=== PATIENT | male | born 1960 | race Two or more races ===

== ENCOUNTER 2018-06-05 13:28 | Inpatient (IN) | payer OTHER ==
[~2018-06-05] VITALS: Ht 175.3 cm; Wt 54.8 kg
[2018-06-05] MEDS ORDERED: SODIUM CHLORIDE 0.9% 1,000 ML IVB ONE ×2 (13:50→14:51)
[2018-06-05] MEDS ORDERED: SODIUM CHLORIDE 0.9% 1,000 ML IV ONE (14:00)
[2018-06-05 14:03] LABS: Hematocrit 52.3 % (41.0-53.0); Hemoglobin 16.8 g/dL (13.5-17.5); Mean Corpuscular Hemoglobin 30.2 pg (28.0-32.0); Mean Corpuscular Hgb Conc. 32.2 g/dL (32.0-36.0); Platelet Count (auto) 365 10^3/uL (140-450); Red Blood Cells 5.57 10^6/uL (4.5-5.90); Red Cell Distribution Width 13.2 % (11.8-14.3); White Blood Cell 25.1 10^3/uL (4.4-10.8)
[2018-06-05 14:10] LABS: Basophils % (manual) 0 (0.0-2.0); Blast Cells 0; Eosinophils % (manual) 0 (0-7); Metamyelocytes % 0; Myelocytes % 0; Promyelocytes % 0; Reactive Lymphocytes 0
[2018-06-05 14:17] LABS: INR 1.04 (0.9-1.15); Partial Thromboplastin Time 33.8 sec (23.78-33.04); Prothrombin Time 11.1 sec (9.27-12.13)
[2018-06-05 14:23] LABS: Alanine Aminotransferase 23 U/L (16-61); Albumin 3.9 g/dL (3.4-5.0); Amylase 379 U/L (25-115); Anion Gap 29 (5-15); Blood Urea Nitrogen 40 mg/dL (7-18); Calcium 9.5 mg/dL (8.5-10.1); Chloride 97 mmol/L (98-107); Magnesium 2.5 mg/dL (1.6-2.6); Potassium 4.5 mmol/L (3.5-5.1); Sodium 132 mmol/L (136-145)
[2018-06-05 14:32] LABS: Alkaline Phosphatase 92 U/L (45-117); Aspartate Aminotransferase 9 U/L (15-37); BUN/Creatinine Ratio 26.8; Bilirubin, Total 0.5 mg/dL (0.2-1.0); GFR African American 63 mL/min; GFR Non-African American 52 mL/min; Lipase 2333 U/L (73-393)
[2018-06-05 14:38] LABS: Band Neutrophils % (manual) 15; Lymphocytes % (manual) 4 (10.0-50.0); Monocytes % (manual) 7 (0-12)
[2018-06-05 14:47] LABS: Carbon Dioxide 6 mmol/L (21-32); Glucose 644 mg/dL (74-106)
[2018-06-05] MEDS ORDERED: InsuLIN R (HUMAN) 100 UNITS in SODIUM CHL 0.9% 99 ML IV SCH ×4 (14:51)
[2018-06-05] MEDS ORDERED: SODIUM CHLORIDE 0.9% 1,000 ML IV SCH ×2 (14:51→18:51)
[2018-06-05] MEDS ORDERED: DEXTROSE (50%) 50ML SYRG IV PRN (15:00)
[2018-06-05] MEDS ORDERED: MORPHINE SULF INJ 2 MG/ML SYRINGE 1ML IV ONE (15:00)
[2018-06-05] MEDS ORDERED: SODIUM CHLORIDE 0.9% 2,000 ML IV ONE (15:00)
[2018-06-05] MEDS ORDERED: ONDANSETRON HCL 4 MG/2 ML VIAL IV ONE (15:00)
[2018-06-05] MEDS ORDERED: SODIUM BICARBONATE 8.4 % INJ 50ML VIAL IV ONE ×2 (15:00→15:30)
[2018-06-05] MEDS ORDERED: SODIUM BICARBONATE 8.4% INJ 50ML SYRINGE ONE (15:16)
[2018-06-05 15:36] LABS: Magnesium 2.6 mg/dL (1.6-2.6); Phosphorus 5.8 mg/dL (2.5-4.90)
[2018-06-05] MEDS: ACCU-CHEK COMFORT CURVE STRIP VI SCH ×6 (15:49→22:29)
[2018-06-05 15:53] LABS: Lactic Acid w/Reflex 2.3 mmol/L (0.4-2.0)
[2018-06-05] MEDS ORDERED: InsuLIN REG 1unit/0.01ml Soln (100units/ml) ONE (16:08)
[2018-06-05 16:15] LABS: Alcohol, Urine < 3.0 mg/dL (0-5); Amphetamine Screen, Urine NEGATIVE (NEGATIVE); Barbiturate Scree,Urine NEGATIVE (NEGATIVE); Benzodiazephine Screen, Urine NEGATIVE (NEGATIVE); Cannabinoid Screen, Urine POSITIVE (NEGATIVE); Cocaine Screen, Urine NEGATIVE (NEGATIVE); Opiate Scree,Urine NEGATIVE (NEGATIVE); Phencyclidine Screen, Urine NEGATIVE (NEGATIVE)
[2018-06-05] MEDS ORDERED: MORPHINE SULF INJ 2 MG/ML SYRINGE 1ML IV PRN ×2 (16:15)
[2018-06-05] MEDS ORDERED: InsuLIN REG 1unit/0.01ml Soln (100units/ml) IV ONE (16:15)
[2018-06-05] MEDS ORDERED: NITROGLYCERIN 0.4 MG SL TAB SL PRN (16:15)
[2018-06-05] MEDS ORDERED: ONDANSETRON HCL 4 MG/2 ML VIAL IV PRN (16:15)
[2018-06-05] MEDS ORDERED: hydrALAZINE HCL 20 MG/ML VL IV PRN (16:15)
[2018-06-05] MEDS ORDERED: SOD CHL 0.45% WITH 20MEQ KCL 1,000 ML IV SCH (16:15)
[2018-06-05 16:32] LABS: Urine Bacteria NONE SEEN /hpf (None Seen); Urine Blood 1+ /uL (Negative); Urine Hyaline Cast FEW /lpf (0 - 2); Urine Mucus FEW (None Seen); Urine WBC 1 /hpf (0 - 3)
[2018-06-05] MEDS: D5W/SOD CHL 0.45%/KCL 20MEQ 1,000 ML IV SCH (20:12)
[2018-06-05 21:27] LABS: BUN/Creatinine Ratio 30.9; Potassium 3.5 mmol/L (3.5-5.1)
[2018-06-05 21:32] LABS: Magnesium,Therapeutic 1.9 mg/dL (4.0-7.1); Phosphorus 1.5 mg/dL (2.5-4.90)
[2018-06-06] MEDS: ACCU-CHEK COMFORT CURVE STRIP VI SCH ×8 (00:05→22:15)
[2018-06-06 02:59] LABS: Basophils # (auto) 0.1 uL; Basophils % (auto) 0.5 % (0.0-2.0); Eosinophils # (auto) 0 uL; Hematocrit 39.4 % (41.0-53.0); Hemoglobin 13.4 g/dL (13.5-17.5); Lymphocytes # (auto) 1.3 uL; Mean Corpuscular Hemoglobin 30.7 pg (28.0-32.0); Mean Corpuscular Volume 90.5 fL (80.0-100.0); Monocytes # (auto) 1.5 uL; Monocytes % (auto) 7.1 % (0.0-12.0); Neutrophils # (auto) 18.4 uL; Neutrophils % (auto) 86.4 % (37.0-80.0); Platelet Count (auto) 263 10^3/uL (140-450); Red Blood Cells 4.35 10^6/uL (4.5-5.90); Red Cell Distribution Width 13.2 % (11.8-14.3); White Blood Cell 21.3 10^3/uL (4.4-10.8)
[2018-06-06 03:18] LABS: Calcium 8.5 mg/dL (8.5-10.1); Magnesium 1.9 mg/dL (1.6-2.6); Potassium 3.3 mmol/L (3.5-5.1)
[2018-06-06 03:22] LABS: BUN/Creatinine Ratio 25.6; Bilirubin, Total 0.3 mg/dL (0.2-1.0); Phosphorus 1.8 mg/dL (2.5-4.90); Total Protein 6.5 g/dL (6.4-8.2)
[2018-06-06] MEDS: D5W/SOD CHL 0.45%/KCL 20MEQ 1,000 ML IV SCH (04:00)
[2018-06-06] MEDS ORDERED: POTASSIUM CHL 20 Meq TABLET PO ONE (07:45)
[2018-06-06] MEDS ORDERED: DEXTROSE (50%) 50ML SYRG IV PRN (08:00)
[2018-06-06] MEDS ORDERED: INSULIN LANTUS (GLARGINE) 1 /0.01ml (100units/ml) SC SCH (08:30)
[2018-06-06] MEDS ORDERED: POTASSIUM CHL 10% (20 MEQ/15ML) 15ml ORAL SOLN PO ONE (08:30)
[2018-06-06] MEDS ORDERED: POTASSIUM PHOSPHATE 22 MEQ in SODIUM CHL 0.9% 100 ML IV ONE (08:30)
[2018-06-06] MEDS: LACTATED RINGER'S 1,000 ML IV SCH ×2 (09:14→18:18)
[2018-06-06] MEDS: InsuLIN REG 1unit/0.01ml Soln (100units/ml) SC SCH ×3 (11:34→22:16)
--- NOTE | 2018-06-06 13:15 | NUR ---
ADMIT: Telemetry admit from [facility] admitted to Telemetry unit after SBAR received. Patient oriented to IRVING KURTZ, primary RN, unit, room, bed, and unit policies regarding patient care and visiting hours. Patient now on continuous telemetry monitoring, tele box # 22 and telemetry reading on arrival to unit is ST 115. Patient on RA, weighed by bedscale and encouraged to call if they need something. All questions and concerns addressed, patient verbalized understanding. Note:
--- NOTE | 2018-06-06 13:27 | NUR ---
NAUSEA: Patient still c/o nausea and is throwing up. Zofran is order q6prn and patient still has two hours until he can receive next dose. Dr Cruz paged to see if frequency can be changed.
[2018-06-06] MEDS ORDERED: ONDANSETRON HCL 4 MG/2 ML VIAL IV PRN (13:45)
[2018-06-06] MEDS ORDERED: ONDANSETRON HCL 4 MG/2 ML VIAL ONE (13:46)
[2018-06-06 14:00] VITALS: BP 162/86
[2018-06-06 14:16] VITALS: BP 162/86
--- NOTE | 2018-06-06 14:55 | NUR ---
RECEIVED REPORT FROM IRVING / STEFANIE, PT RESTING COMFORTABLY, FAMILY AT BED SIDE, ECHOCARDIOGRAM IN PROGRESS AT THIS TIME, WILL CONTINUE TO MONITOR PT.
[2018-06-06 16:00] VITALS: BP 146/84
--- NOTE | 2018-06-06 17:35 | NUR ---
DR. ALVARENGA AT BED SIDE TO SEE PT, DOCTOR DISCUSSED PLAN OF CARE WITH PT.
[2018-06-06] MEDS ORDERED: PANTOPRAZOLE 40 MG/10 ML VIAL IV ONE (17:45)
--- NOTE | 2018-06-06 19:00 | NUR ---
Opening Shift Note Received shift report received Nirmala WATTS. Assumed care of patient, awake and alert. Respirations regular and unlabored. No S/S of distress/SOB or pain. Instructed on POC and to call for assist PRN, will continue to monitor for changes Q1hr and PRN. Bed in lowest position, side rails upx2, Call light within reach. Continuing to monitor.
[2018-06-06 20:00] VITALS: BP 134/78
[2018-06-06 21:57] VITALS: BP 133/71
[2018-06-06] MEDS: PANTOPRAZOLE 40 MG/10 ML VIAL IV SCH (22:15)
[2018-06-07] MEDS: LACTATED RINGER'S 1,000 ML IV SCH ×2 (01:46→14:30)
[2018-06-07 04:48] VITALS: BP 156/83
[2018-06-07] MEDS: InsuLIN REG 1unit/0.01ml Soln (100units/ml) SC SCH ×4 (06:37→21:44)
[2018-06-07] MEDS: ACCU-CHEK COMFORT CURVE STRIP VI SCH ×4 (06:37→21:45)
[2018-06-07] MEDS ORDERED: INSULIN LANTUS (GLARGINE) 1 /0.01ml (100units/ml) SC SCH (07:00)
--- NOTE | 2018-06-07 07:00 | NUR ---
Opening Shift Note Assumed care of patient, awake and alert. No S/S of distress/SOB or pain. Instructed on POC and to call for assist PRN, will continue to monitor for changes Q1hr and PRN.
[2018-06-07 07:19] LABS: Calcium 8.4 mg/dL (8.5-10.1); Potassium 3.1 mmol/L (3.5-5.1)
[2018-06-07 08:00] VITALS: BP 138/73
[2018-06-07 09:00] VITALS: BP 138/73
[2018-06-07] MEDS: PANTOPRAZOLE 40 MG/10 ML VIAL IV SCH ×2 (10:11→21:45)
[2018-06-07 13:00] VITALS: BP 130/68
[2018-06-07 16:30] VITALS: BP 133/67
[2018-06-07] MEDS ORDERED: TEMAZEPAM 15 MG CAP PO ONE ×2 (18:00→22:15)
[2018-06-07] MEDS: SOD CHL 0.45% WITH 20MEQ KCL 1,000 ML IV SCH (18:50)
[2018-06-07] MEDS ORDERED: TEMAZEPAM 15 MG CAP PO PRN (19:00)
--- NOTE | 2018-06-07 19:35 | NUR ---
Opening Shift Note Assumed care of patient, awake and alert oriented x4. Call light is within reach of the patient with bed in lowest locked position and call light is within reach of the patient. No S/S of distress/SOB or pain noted. Instructed on POC and to call for assist PRN.
[2018-06-07 21:00] VITALS: BP 151/80
[2018-06-08] MEDS: SOD CHL 0.45% WITH 20MEQ KCL 1,000 ML IV SCH ×3 (03:30→19:41)
[2018-06-08 05:00] VITALS: BP 128/72
[2018-06-08] MEDS: InsuLIN REG 1unit/0.01ml Soln (100units/ml) SC SCH ×4 (06:36→21:32)
[2018-06-08] MEDS: ACCU-CHEK COMFORT CURVE STRIP VI SCH ×4 (06:37→21:33)
[2018-06-08] MEDS ORDERED: INSULIN LANTUS (GLARGINE) 1 /0.01ml (100units/ml) SC SCH (07:00)
[2018-06-08 07:30] LABS: Calcium 8.5 mg/dL (8.5-10.1)
--- NOTE | 2018-06-08 07:30 | NUR ---
Call from [facility]. They want the patient to be brought down to pre-op by 0830.
[2018-06-08 07:32] LABS: BUN/Creatinine Ratio 21.6
[2018-06-08 07:38] LABS: Potassium 2.7 mmol/L (3.5-5.1)
--- NOTE | 2018-06-08 07:38 | NUR ---
Critical Lab value Potassium of 2.7 call center specialist hospitalist paged and Pre-op notified.
--- NOTE | 2018-06-08 07:54 | NUR ---
Orders obtained from [facility]. 40 Meq potassium po. pre-op said they wanted to wait until 2 hours after the dose given to check the potassium levels and see if its high enough for the anesthesiologist to go on with procedure. Will notify Pre-op when the lab value gets resulted.
[2018-06-08 08:00] VITALS: BP 138/76
[2018-06-08] MEDS ORDERED: POTASSIUM CHL 20 Meq TABLET PO ONE ×2 (08:00→08:45)
[2018-06-08] MEDS ORDERED: LIDOCAINE VISCOUS 2% 15ML UD ONE (08:31)
[2018-06-08] MEDS ORDERED: fentaNYL CITRATE 100 MCG/2 ML VL ONE (08:31)
[2018-06-08] MEDS ORDERED: diphenhdrAMINE HCL 50 MG/1 ML VL ONE ×2 (08:31→13:21)
[2018-06-08] MEDS ORDERED: SODIUM CHLORIDE LOCK 10 ML ONE (08:31)
[2018-06-08] MEDS ORDERED: MIDAZOLAM HCL 5 MG/ML-1ML VIAL ONE (08:31)
[2018-06-08] MEDS ORDERED: POTASSIUM CHLORIDE 40 MEQ, LIDOCAINE 1% (LOCAL ANESTH.) 4 ML in SODIUM CHL 0.9% 100 ML IV ONE (08:45)
[2018-06-08 08:58] LABS: Basophils # (auto) 0 uL; Basophils % (auto) 0.4 % (0.0-2.0); Eosinophils # (auto) 0 uL; Eosinophils % (auto) 0.3 % (0.0-7.0); Hematocrit 39.9 % (41.0-53.0); Hemoglobin 13.8 g/dL (13.5-17.5); Lymphocytes # (auto) 1.2 uL; Lymphocytes % (auto) 14.2 % (10.0-50.0); Mean Corpuscular Hemoglobin 30.5 pg (28.0-32.0); Mean Corpuscular Hgb Conc. 34.5 g/dL (32.0-36.0); Mean Corpuscular Volume 88.4 fL (80.0-100.0); Monocytes # (auto) 0.8 uL; Monocytes % (auto) 9.4 % (0.0-12.0); Neutrophils # (auto) 6.6 uL; Neutrophils % (auto) 75.7 % (37.0-80.0); Nucleated Red Blood Cells % 0.1 %; Platelet Count (auto) 237 10^3/uL (140-450); Red Blood Cells 4.51 10^6/uL (4.5-5.90); White Blood Cell 8.8 10^3/uL (4.4-10.8)
[2018-06-08 09:08] VITALS: BP 138/76
[2018-06-08] MEDS: LISINOPRIL 5 MG TAB PO SCH (09:21)
[2018-06-08] MEDS: PANTOPRAZOLE 40 MG/10 ML VIAL IV SCH (09:22)
--- NOTE | 2018-06-08 11:56 | NUR ---
NUTRITION CONSULT/ASSESSMENT NOTES Please refer to link notes of nutrition screen form filed under the intervention section of the plan of care for further details. Est. Needs based on IBW (73 kg): 1850 kcal to 2200 kcal (25-30 kcal/kgIBW), 73 gms to 88 gms pro (1.0-1.2 gms/kgIBW). Will continue to monitor pertinent labs and reassess nutrient need prn Thank you for this consult. Addendum: 06/08/18 at [address] Amended: Links added.
[2018-06-08 12:49] LABS: Alcohol, Urine < 3.0 mg/dL (0-5); Amphetamine Screen, Urine NEGATIVE (NEGATIVE); Barbiturate Scree,Urine NEGATIVE (NEGATIVE); Benzodiazephine Screen, Urine NEGATIVE (NEGATIVE); Cannabinoid Screen, Urine POSITIVE (NEGATIVE); Cocaine Screen, Urine NEGATIVE (NEGATIVE); Opiate Scree,Urine NEGATIVE (NEGATIVE); Phencyclidine Screen, Urine NEGATIVE (NEGATIVE)
[2018-06-08 13:00] VITALS: BP 130/73
[2018-06-08] MEDS ORDERED: LIDOCAINE 2% (LOCAL ANESTH.) PF 5ml SDV ONE (13:20)
[2018-06-08] MEDS ORDERED: PROPOFOL 10 MG/ML 20 ML IV ONE (13:20)
[2018-06-08] MEDS ORDERED: MIDAZOLAM HCL 1MG/1ML-2 ML VIAL ONE (13:21)
[2018-06-08] MEDS ORDERED: GLYCOPYRROLATE 0.2 MG/ML 1ML VIAL ONE (13:21)
[2018-06-08 16:59] VITALS: BP 141/73
[2018-06-08] MEDS: INSULIN 70/30 1unit/0.01ml Susp (100units/ml) SC SCH (18:00)
--- NOTE | 2018-06-08 18:30 | NUR ---
PATIENT DOESN'T WANT TO DO THE TELE/PSYCH UNTIL HIS IS WITH HIM AT BEDSIDE. AT THIS TIME THE PATIENT IS ALONE BECAUSE HIS WENT HOME.
--- NOTE | 2018-06-08 19:30 | NUR ---
Opening Shift Note Assumed care of patient, awake and alert oriented x4. No S/S of distress/SOB or pain noted. Bed is in lowest locked position with bed rails up x2 and call light is within reach of the patient. Instructed on POC and to call for assist PRN. Patient was asked about tele psyche and patient expressed that he would like to do the tele psych consult when his is present in the day.
[2018-06-08 21:00] VITALS: BP 119/69
[2018-06-08] MEDS: PANTOPRAZOLE 40 MG TAB PO SCH (21:30)
[2018-06-08] MEDS: ATORVASTATIN 20 MG TAB PO SCH (21:30)
[2018-06-08] MEDS ORDERED: TEMAZEPAM 15 MG CAP PO PRN (22:00)
[2018-06-09 05:00] VITALS: BP 128/80
[2018-06-09] MEDS: ACCU-CHEK COMFORT CURVE STRIP VI SCH ×4 (06:18→22:24)
[2018-06-09] MEDS: InsuLIN REG 1unit/0.01ml Soln (100units/ml) SC SCH ×4 (06:18→22:00)
[2018-06-09] MEDS: SOD CHL 0.45% WITH 20MEQ KCL 1,000 ML IV SCH ×2 (06:21→20:00)
[2018-06-09 06:50] LABS: Calcium 8.6 mg/dL (8.5-10.1); Potassium 3.1 mmol/L (3.5-5.1)
--- NOTE | 2018-06-09 07:15 | NUR ---
Closing note: Patient is asleep resting in bed with breaths even and unlabored. No S/S of distress SOB or pain noted. Bed is in lowest locked position with bed rails up x2 and call light is within reach of the patient. Care endorsed to day shift nurse.
[2018-06-09] MEDS: INSULIN 70/30 1unit/0.01ml Susp (100units/ml) SC SCH ×2 (08:00→18:04)
[2018-06-09] MEDS: PANTOPRAZOLE 40 MG TAB PO SCH ×2 (08:23→22:23)
[2018-06-09] MEDS: LISINOPRIL 5 MG TAB PO SCH (08:23)
[2018-06-09 09:00] VITALS: BP 134/84
--- NOTE | 2018-06-09 10:19 | NUR ---
Tele-psych machine placed in room. Placed call to [phone] to initiate tele-psych consult. Waiting return call.
--- NOTE | 2018-06-09 10:52 | NUR ---
Received call from Dr. Malone for tele-psych consult. He was updated on patient's information. Dr. Malone states he will speak with patient.
--- NOTE | 2018-06-09 11:15 | NUR ---
Tele-psych consult completed. Waiting for report.
--- NOTE | 2018-06-09 11:30 | NUR ---
Dr. Sequeira in to see patient as hospitalist.
[2018-06-09] MEDS ORDERED: POTASSIUM CHL 20 Meq TABLET PO ONE (11:45)
[2018-06-09] MEDS ORDERED: POTASSIUM CHLORIDE 40 MEQ, LIDOCAINE 1% (LOCAL ANESTH.) 4 ML in SODIUM CHL 0.9% 100 ML IV ONE (11:45)
--- NOTE | 2018-06-09 11:49 | NUR ---
Tele/psych report given to Dr. Sequeira. Orders received to start Cymbalta per recommendation of Dr. Malone.
[2018-06-09] MEDS ORDERED: DULoxetine HCL 30 MG CAP PO ONE (12:00)
--- NOTE | 2018-06-09 12:15 | NUR ---
Received a call from scout Rodriguez regarding clarification of an order for Duloxetine PO. Duloxetine dose available in pharmacy is 30mg/capsule. The order put in was Duloxetine 20mg. Informed the hospitalist Dr. Sequeira about this. Orders received to change Duloxetine PO to 30mg. Called pharmacy again and was able to inform scout Wilson about the order change.
[2018-06-09 13:00] VITALS: BP 134/74
[2018-06-09 17:00] VITALS: BP 158/99
--- NOTE | 2018-06-09 17:19 | NUR ---
IV removal IV left forearm and right forearm leaking, tender. Both IVs DC'd with sterile technique, catheters fully intact. Pressure dressing applied to sites. Patient tolerated procedure well. NOTE:
--- NOTE | 2018-06-09 17:20 | NUR ---
IV insertion IV access obtained, via clean sterile technique by inserting 20 gauge catheter at left forearm after 2 attempts. IV secured properly. No trauma to site. Patient tolerated procedure well.
--- NOTE | 2018-06-09 20:57 | NUR ---
Opening Shift Note Assumed care of patient from day shift RN Tatiana. Patient is awake and alert/oriented x4. No S/S of distress/SOB or pain noted at this time. Bed is in lowest locked position with bed rails up x2 and call light is within reach of the patient. Instructed on POC and to call for assist PRN
[2018-06-09 21:39] VITALS: BP 137/73
[2018-06-09] MEDS: ATORVASTATIN 20 MG TAB PO SCH (22:23)
[2018-06-10 05:13] VITALS: BP 145/79
[2018-06-10] MEDS: SOD CHL 0.45% WITH 20MEQ KCL 1,000 ML IV SCH (06:15)
[2018-06-10] MEDS: ACCU-CHEK COMFORT CURVE STRIP VI SCH ×2 (06:16→11:29)
[2018-06-10] MEDS: InsuLIN REG 1unit/0.01ml Soln (100units/ml) SC SCH ×2 (06:16→11:29)
[2018-06-10 06:20] LABS: Potassium 3.6 mmol/L (3.5-5.1)
[2018-06-10 06:27] LABS: BUN/Creatinine Ratio 19.4; Calcium 8.9 mg/dL (8.5-10.1)
--- NOTE | 2018-06-10 07:03 | NUR ---
CLOSING NOTE PATIENT IS RESTING IN BED WITH EVEN AND UNLABORED RESPIRATIONS. PATIENT EASILY AROUSED BY NAME. NO S/S OF DISTRESS AT THIS TIME. BED IS IN LOWEST POSITION, LOCKED, AND CALL LIGHT IS IN REACH. CARE TRANSFERRED TO DAY SHIFT RN.
[2018-06-10] MEDS: INSULIN 70/30 1unit/0.01ml Susp (100units/ml) SC SCH (08:14)
[2018-06-10 09:00] VITALS: BP 140/80
[2018-06-10] MEDS: LISINOPRIL 5 MG TAB PO SCH (09:50)
[2018-06-10] MEDS: PANTOPRAZOLE 40 MG TAB PO SCH (09:50)
[2018-06-10] MEDS ORDERED: DULoxetine HCL 30 MG CAP PO SCH (10:00)
[2018-06-10] MEDS ORDERED: POTASSIUM CHL 20 Meq TABLET PO ONE (10:30)
--- NOTE | 2018-06-10 10:30 | NUR ---
Dr. Sequeira in to see patient as hospitalist. Patient to be discharged today. Patient informed. Will continue to monitor.
--- NOTE | 2018-06-10 11:42 | NUR ---
Nutrition Follow-up Notes Wt.: 54.8 kg Pt was sleeping with no family by beside. per pt records pt with resolved DKA. pt was tele psych consult. pt with no distress noted per nursing. pt is currently on CCHO 60 gm/meal diet with fair PO of avg 60% x 5 per RN doc Est. Needs based on IBW (73 kg): 1850 kcal to 2200 kcal (25-30 kcal/kgIBW), 73 gms to 88 gms pro (1.0-1.2 gms/kgIBW). Will continue to monitor pertinent labs and reassess nutrient need prn Labs: GLU 141 H. rest lab wnl for today Skin: Atilio scale 20 low risk skin intact per orientation & mobility specialist. GI: Pt has no BM reported per orientation & mobility specialist. PES: Altered nutrition related lab values r/t current/chronic medical condition aeb hyperglycemia, hypokalemia, low Cr elev. HbA1c, LDL, Lipase, and mild hypoalbuminemia Partially resolved: Increased nutrient needs r/t chronic current medical condition aeb 73% IBW, BMI 16.9 kg/m2, cachectic, hx of wt loss, mild hypoalbuminemia, NPO. Will continue to monitor PO intake, skin status, pertinent labs and weight trend. F/u in 3-5 days. Rec.: 1.) Consider Glucerna Shakes 1 carton TID. 2.) If Albumin level continues trending down, consider Prostat 1 pkt BID. 3.) Consider close supervision with meals 4.) Refer to CDE/RD for further nutrition education and weight monitoring upon discharged. 5.) Continue current plan of care.
[2018-06-10 12:46] VITALS: BP 140/80
[2018-06-11 02:00] LABS: Hepatitis B Surface Antibody Negative
[2018-06-11 02:31] LABS: Hepatitis A Total Antibody Negative
[2018-06-11 06:38] LABS: Hepatitis B Core Total AB Negative; Hepatitis B Surface Antigen Negative (Negative)
[2018-06-11 06:39] LABS: Hepatitis C Antibody Negative (Negative)
== END 2018-06-10 13:25 | disposition home or self-care (01) | DRG 637 ==
LOC: ER 13:32 → OVERFLOW 16:17 → TELE-CENTR 06-06 13:04
PROVIDERS: ADMIT Nurse Practitioner Acute Care; ATTEND Internal Medicine
PROC: 0DB68ZX Excision of Stomach, Via Natural or Artificial Opening Endoscopic, Diagnostic (ICD-10-PCS; principal; 2018-06-08 13:31)
DX: E10.10 Type 1 diabetes mellitus with ketoacidosis without coma (principal); N17.0 Acute kidney failure with tubular necrosis; R65.10 Systemic inflammatory response syndrome (SIRS) of non-infectious origin without acute organ dysfunction; R10.9 Unspecified abdominal pain; K29.80 Duodenitis without bleeding; K29.70 Gastritis, unspecified, without bleeding; I10 Essential (primary) hypertension; E87.6 Hypokalemia; K20.9 Esophagitis, unspecified
CPT/HCPCS: 36415; 36600; 71045; 74176; 80048; 80053; 80061; 80307; 80320; 81001; 82010; 82043; 82150; 82805; 82962; 83036; 83605; 83690; 83735; 84100; 84132; 84439; 84443; 84484; 85007; 85025; 85027; 85610; 85730; 86704; 86706; 86708; 86803; 87040; 87340; 93005; 93306; 96361; 96374; 96375; 99291; A6257; C9113; G0378; J1815; J2001; J2250; J2405; J2704

== ENCOUNTER → 2018-07-03 | Outpatient (CLI) | payer OTHER ==
[2018-07-03 13:05] LABS: Potassium 4.2 mmol/L (3.5-5.1)
[2018-07-03 13:06] LABS: Albumin 3.6 g/dL (3.4-5.0); BUN/Creatinine Ratio 34.4; Calcium 8.7 mg/dL (8.5-10.1)
[2018-07-03 13:07] LABS: Bilirubin, Total 0.3 mg/dL (0.2-1.0); Total Protein 7.5 g/dL (6.4-8.2)
== END | disposition home or self-care (01) ==
LOC: LAB 11:10
PROVIDERS: ATTEND Internal Medicine
DX: I10 Essential (primary) hypertension (principal); E11.9 Type 2 diabetes mellitus without complications
CPT/HCPCS: 36415; 80053; 83036; 84439; 84443

== ENCOUNTER → 2018-07-06 | Outpatient (CLI) | payer OTHER | END | disposition home or self-care (01) | LOC: LAB 10:03 | PROVIDERS: ATTEND Internal Medicine | DX: I10 Essential (primary) hypertension (principal) | CPT/HCPCS: 82270 ==

== ENCOUNTER → 2018-07-17 | Outpatient (CLI) | payer OTHER | END | disposition home or self-care (01) | LOC: LAB 16:00 | PROVIDERS: ATTEND Internal Medicine | DX: E07.9 Disorder of thyroid, unspecified (principal) | CPT/HCPCS: 36415; 84439; 84443; 86800 ==

== ENCOUNTER → 2018-07-19 | Outpatient (CLI) | payer OTHER | END | disposition home or self-care (01) | LOC: XYW 10:30 | PROVIDERS: ATTEND Internal Medicine | DX: C83.34 Diffuse large B-cell lymphoma, lymph nodes of axilla and upper limb (principal); C83.31 Diffuse large B-cell lymphoma, lymph nodes of head, face, and neck; E07.9 Disorder of thyroid, unspecified; R59.1 Generalized enlarged lymph nodes; E03.9 Hypothyroidism, unspecified; E11.319 Type 2 diabetes mellitus with unspecified diabetic retinopathy without macular edema; F17.210 Nicotine dependence, cigarettes, uncomplicated; Z82.49 Family history of ischemic heart disease and other diseases of the circulatory system; Z79.4 Long term (current) use of insulin; Z83.3 Family history of diabetes mellitus | CPT/HCPCS: 10022; 38505; 60100; 76942 ==

== ENCOUNTER → 2018-07-19 | Outpatient (CLI) | payer OTHER ==
[2018-07-19 11:35] LABS: Calcium 9.3 mg/dL (8.5-10.1); Potassium 4.5 mmol/L (3.5-5.1)
[2018-07-19 11:37] LABS: BUN/Creatinine Ratio 38.8
== END | disposition home or self-care (01) ==
LOC: LAB 09:47
PROVIDERS: ATTEND Internal Medicine
DX: E11.9 Type 2 diabetes mellitus without complications (principal)
CPT/HCPCS: 36415; 80048

== ENCOUNTER → 2018-07-24 | Outpatient (CLI) | payer OTHER ==
[2018-07-24 16:04] LABS: Basophils # (auto) 0 uL; Basophils % (auto) 0.5 % (0.0-2.0); Eosinophils # (auto) 0.3 uL; Eosinophils % (auto) 3.2 % (0.0-7.0); Hematocrit 36.8 % (41.0-53.0); Hemoglobin 12.7 g/dL (13.5-17.5); Lymphocytes # (auto) 1.5 uL; Lymphocytes % (auto) 17.2 % (10.0-50.0); Mean Corpuscular Hemoglobin 30.6 pg (28.0-32.0); Mean Corpuscular Hgb Conc. 34.5 g/dL (32.0-36.0); Mean Corpuscular Volume 88.6 fL (80.0-100.0); Monocytes # (auto) 0.9 uL; Monocytes % (auto) 9.9 % (0.0-12.0); Neutrophils % (auto) 69.2 % (37.0-80.0); Platelet Count (auto) 308 10^3/uL (140-450); Red Blood Cells 4.16 10^6/uL (4.5-5.90); Red Cell Distribution Width 14.8 % (11.8-14.3); White Blood Cell 8.6 10^3/uL (4.4-10.8)
[2018-07-24 16:22] LABS: Albumin 3.5 g/dL (3.4-5.0); Calcium 9.2 mg/dL (8.5-10.1); Potassium 4.1 mmol/L (3.5-5.1)
[2018-07-24 16:26] LABS: BUN/Creatinine Ratio 36.2; Bilirubin, Total 0.2 mg/dL (0.2-1.0); Uric Acid 3.7 mg/dL (3.5-7.2)
[2018-07-25 07:06] LABS: Immunoglobulin G, Serum 1121 mg/dL (700-1600)
== END | disposition home or self-care (01) ==
LOC: LAB 15:46
PROVIDERS: ATTEND Internal Medicine
DX: R22.1 Localized swelling, mass and lump, neck (principal)
CPT/HCPCS: 36415; 80053; 82784; 83615; 84550; 85025

== ENCOUNTER → 2018-07-25 | Outpatient (CLI) | payer OTHER | END | disposition home or self-care (01) | LOC: XYW 08:48 | PROVIDERS: ATTEND Internal Medicine Hematology & Oncology | DX: I07.9 Rheumatic tricuspid valve disease, unspecified (principal); I10 Essential (primary) hypertension | CPT/HCPCS: 93306 ==

== ENCOUNTER → 2018-08-02 | Outpatient (CLI) | payer OTHER | END | disposition home or self-care (01) | LOC: LAB 15:00 | PROVIDERS: ATTEND Internal Medicine | DX: R22.1 Localized swelling, mass and lump, neck (principal) | CPT/HCPCS: 88189; 88291 ==

== ENCOUNTER → 2018-08-28 | Outpatient (CLI) | payer OTHER ==
[2018-08-28 14:06] LABS: Basophils # (auto) 0 uL; Eosinophils # (auto) 0 uL; Eosinophils % (auto) 0.1 % (0.0-7.0); Hematocrit 37.7 % (41.0-53.0); Lymphocytes # (auto) 0.4 uL; Lymphocytes % (auto) 3.8 % (10.0-50.0); Mean Corpuscular Hemoglobin 31.5 pg (28.0-32.0); Mean Corpuscular Hgb Conc. 34.4 g/dL (32.0-36.0); Mean Corpuscular Volume 91.5 fL (80.0-100.0); Monocytes # (auto) 0.1 uL; Monocytes % (auto) 0.6 % (0.0-12.0); Neutrophils # (auto) 10.2 uL; Neutrophils % (auto) 95.5 % (37.0-80.0); Platelet Count (auto) 190 10^3/uL (140-450); Red Blood Cells 4.12 10^6/uL (4.5-5.90); Red Cell Distribution Width 17.4 % (11.8-14.3); White Blood Cell 10.6 10^3/uL (4.4-10.8)
[2018-08-28 14:29] LABS: Albumin 3.6 g/dL (3.4-5.0); Potassium 4.1 mmol/L (3.5-5.1); Uric Acid 3.7 mg/dL (3.5-7.2)
[2018-08-28 14:32] LABS: BUN/Creatinine Ratio 53.8; Bilirubin, Total 0.3 mg/dL (0.2-1.0); Total Protein 6.2 g/dL (6.4-8.2)
== END | disposition home or self-care (01) ==
LOC: LAB 13:10
PROVIDERS: ATTEND Internal Medicine Hematology & Oncology
DX: C83.31 Diffuse large B-cell lymphoma, lymph nodes of head, face, and neck (principal)
CPT/HCPCS: 36415; 80053; 84550; 85025

== ENCOUNTER → 2018-09-10 | Outpatient (CLI) | payer OTHER ==
[2018-09-10 12:59] LABS: Hematocrit 41.9 % (41.0-53.0); Hemoglobin 14.1 g/dL (13.5-17.5); Mean Corpuscular Hemoglobin 31.4 pg (28.0-32.0); Mean Corpuscular Hgb Conc. 33.8 g/dL (32.0-36.0); Mean Corpuscular Volume 93.2 fL (80.0-100.0); Platelet Count (auto) 251 10^3/uL (140-450); Red Blood Cells 4.49 10^6/uL (4.5-5.90); Red Cell Distribution Width 19.1 % (11.8-14.3); White Blood Cell 13.1 10^3/uL (4.4-10.8)
[2018-09-10 13:17] LABS: Basophils % (manual) 0 (0.0-2.0); Blast Cells 0; Eosinophils % (manual) 0 (0-7); Myelocytes % 0; Promyelocytes % 0; Reactive Lymphocytes 0
[2018-09-10 13:59] LABS: Albumin 3.8 g/dL (3.4-5.0); BUN/Creatinine Ratio 50.7; Bilirubin, Total 0.3 mg/dL (0.2-1.0); Calcium 9.2 mg/dL (8.5-10.1); Total Protein 7.1 g/dL (6.4-8.2)
[2018-09-10 14:52] LABS: Band Neutrophils % (manual) 13; Lymphocytes % (manual) 8 (10.0-50.0); Metamyelocytes % 2; Monocytes % (manual) 7 (0-12)
== END | disposition home or self-care (01) ==
LOC: LAB 11:04
PROVIDERS: ATTEND Internal Medicine
DX: E02 Subclinical iodine-deficiency hypothyroidism (principal)
CPT/HCPCS: 36415; 80053; 83615; 84439; 84443; 85007; 85027

== ENCOUNTER → 2018-09-20 | Outpatient (CLI) | payer OTHER ==
[2018-09-20 14:20] LABS: Hematocrit 39.4 % (41.0-53.0); Hemoglobin 13.5 g/dL (13.5-17.5); Mean Corpuscular Hemoglobin 31.5 pg (28.0-32.0); Mean Corpuscular Hgb Conc. 34.4 g/dL (32.0-36.0); Mean Corpuscular Volume 91.6 fL (80.0-100.0); Platelet Count (auto) 225 10^3/uL (140-450); Red Cell Distribution Width 17.4 % (11.8-14.3); White Blood Cell 3.7 10^3/uL (4.4-10.8)
[2018-09-20 14:36] LABS: Albumin 3.3 g/dL (3.4-5.0); Calcium 8.3 mg/dL (8.5-10.1); Potassium 4.2 mmol/L (3.5-5.1)
[2018-09-20 14:37] LABS: Basophils % (manual) 0 (0.0-2.0); Blast Cells 0; Eosinophils % (manual) 0 (0-7); Metamyelocytes % 0; Myelocytes % 0; Reactive Lymphocytes 0
[2018-09-20 14:39] LABS: BUN/Creatinine Ratio 38.9; Bilirubin, Total 0.7 mg/dL (0.2-1.0); Total Protein 6.6 g/dL (6.4-8.2)
[2018-09-20 15:25] LABS: Band Neutrophils % (manual) 1; Lymphocytes % (manual) 9 (10.0-50.0); Monocytes % (manual) 8 (0-12); Promyelocytes % 2
== END | disposition home or self-care (01) ==
LOC: LAB 14:09
PROVIDERS: ATTEND Internal Medicine
DX: C83.31 Diffuse large B-cell lymphoma, lymph nodes of head, face, and neck (principal)
CPT/HCPCS: 36415; 80053; 83615; 85007; 85027

== ENCOUNTER 2018-09-27 09:44 | Inpatient (IN) | payer OTHER ==
[~2018-09-27] VITALS: Ht 175.3 cm; Wt 52.1 kg
[2018-09-27 10:22] LABS: Hematocrit 37.1 % (41.0-53.0); Hemoglobin 12.8 g/dL (13.5-17.5); Mean Corpuscular Hemoglobin 31.2 pg (28.0-32.0); Mean Corpuscular Hgb Conc. 34.4 g/dL (32.0-36.0); Mean Corpuscular Volume 90.7 fL (80.0-100.0); Platelet Count (auto) 333 10^3/uL (140-450); Red Blood Cells 4.09 10^6/uL (4.5-5.90); Red Cell Distribution Width 17.6 % (11.8-14.3); White Blood Cell 10.7 10^3/uL (4.4-10.8)
[2018-09-27 10:41] LABS: Basophils % (manual) 0 (0.0-2.0); Blast Cells 0; Eosinophils % (manual) 0 (0-7); Metamyelocytes % 0; Myelocytes % 0; Promyelocytes % 0; Reactive Lymphocytes 0
[2018-09-27 10:49] LABS: Alanine Aminotransferase 64 U/L (16-61); Albumin 2.7 g/dL (3.4-5.0); Anion Gap 13 (5-15); Blood Urea Nitrogen 62 mg/dL (7-18); Calcium 8.6 mg/dL (8.5-10.1); Carbon Dioxide 22 mmol/L (21-32); Chloride 99 mmol/L (98-107); Glucose 60 mg/dL (74-106); Potassium 4.2 mmol/L (3.5-5.1); Sodium 134 mmol/L (136-145)
[2018-09-27 10:54] LABS: Alkaline Phosphatase 120 U/L (45-117); Aspartate Aminotransferase 51 U/L (15-37); BUN/Creatinine Ratio 19.9; Bilirubin, Total 0.3 mg/dL (0.2-1.0); GFR African American 27 mL/min; GFR Non-African American 22 mL/min; Total Protein 7.1 g/dL (6.4-8.2)
[2018-09-27] MEDS ORDERED: SODIUM CHLORIDE 0.9% 1,000 ML IV ONE (10:59)
[2018-09-27 11:28] LABS: Band Neutrophils % (manual) 19; Lymphocytes % (manual) 3 (10.0-50.0); Monocytes % (manual) 5 (0-12)
[2018-09-27] MEDS ORDERED: cefTRIAXone 1GM/50ML D5W 50 ML IV ONE (12:15)
[2018-09-27] MEDS ORDERED: AZITHROMYCIN 500MG/ 250ML 250 ML IV ONE (12:15)
[2018-09-27] MEDS ORDERED: CLINDAMYCIN 900MG IV 50 ML IV ONE (14:00)
[2018-09-27] MEDS ORDERED: ACYCLOVIR 5MG/KG Q8HR PER RX 0 ML IV SCH (14:00)
[2018-09-27] MEDS ORDERED: PIPERACILLIN-TAZOB 2.25GM 50 ML IV ONE (14:00)
[2018-09-27] MEDS ORDERED: traMADol HCL 50 MG TAB PO PRN ×2 (15:00→15:15)
[2018-09-27] MEDS ORDERED: LACTULOSE 20Gm/30ML SOLN PO PRN (15:00)
[2018-09-27] MEDS ORDERED: DEXTROSE (50%) 50ML SYRG IV PRN (15:00)
[2018-09-27] MEDS ORDERED: SODIUM CHLORIDE 0.9% 2,000 ML IV ONE (15:00)
[2018-09-27] MEDS ORDERED: LEVOFLOXACIN 500MG 100 ML IV ONE (15:00)
[2018-09-27] MEDS ORDERED: ALBUTEROL SULF 2.5 MG/0.5ML(0.5%) NEB SOLN NEB PRN (15:00)
[2018-09-27] MEDS ORDERED: MORPHINE SULF INJ 2 MG/ML SYRINGE 1ML IV PRN (15:00)
[2018-09-27] MEDS ORDERED: TEMAZEPAM 15 MG CAP PO PRN (15:00)
[2018-09-27] MEDS ORDERED: ONDANSETRON HCL 4 MG/2 ML VIAL IV PRN (15:00)
[2018-09-27] MEDS ORDERED: NITROGLYCERIN 0.4 MG SL TAB SL PRN (15:00)
[2018-09-27] MEDS: SODIUM CHLORIDE 0.9% 1,000 ML IV SCH (15:28)
[2018-09-27] MEDS ORDERED: LORazepam 2MG/ML-1ML VIAL IV ONE (16:30)
[2018-09-27] MEDS: ACYCLOVIR SOD 50MG/ML 500 MG in D5W 5% 100 ML IV SCH (17:17)
[2018-09-27] MEDS: ACCU-CHEK COMFORT CURVE STRIP VI SCH ×2 (17:17→22:28)
[2018-09-27] MEDS: InsuLIN REG 1unit/0.01ml Soln (100units/ml) SC SCH ×2 (17:22→22:00)
[2018-09-27] MEDS ORDERED: diphenhdrAMINE HCL 50 MG/1 ML VL IV ONE (17:45)
[2018-09-27] MEDS: ALBUTEROL SULF 2.5 MG/0.5ML(0.5%) NEB SOLN NEB SCH ×2 (17:48→23:54)
[2018-09-27] MEDS: PIPERACILLIN-TAZOB 2.25GM 50 ML IV SCH ×2 (18:39→22:28)
[2018-09-27 20:09] VITALS: BP 102/79
[2018-09-27 20:15] LABS: Urine Bacteria FEW /hpf (None Seen); Urine Blood Negative /uL (Negative); Urine Hyaline Cast FEW /lpf (0 - 2); Urine Mucus FEW (None Seen); Urine Specific Gravity 1.014 (1.001-1.035); Urine WBC 22 /hpf (0 - 3)
--- NOTE | 2018-09-27 20:20 | NUR ---
ADMISSION NOTE Pt admitted to room 201 in stable cond but confused and sitter at bedside for safety. Pt is ISO for active Shingles and noted outbreak to pt's right lower back/hip area, right groin, and right thigh. Pt family at bedside and admission hx obtained from pt's . -Susi states that she will bring medication list in afternoon tomorrow 09/28/18. Pt and family oriented to room and procedures and pt's verbalizes understanding. Bed is low, wheels are locked, and call light is with in reach. Bed alarm is also set for pt safety.
[2018-09-27] MEDS ORDERED: LORazepam 2MG/ML-1ML VIAL IV PRN (20:30)
[2018-09-27 22:00] VITALS: BP 131/69
--- NOTE | 2018-09-27 22:20 | NUR ---
Notified Alex Vargas DEVELOPMENTAL MATHEMATICS INSTRUCTOR that Pt's fingerstick glucose 26 and recheck 24. Pt given D50 IV push at this time and offered juice. Pt only able to take a few sips. Will recheck blood sugar in 20 min. Also reported that pt is very restless and stating that his skin is burning and Nubain 10mg IV once ordered now.
[2018-09-27] MEDS: CLINDAMYCIN 600MG IV 50 ML IV SCH (22:27)
--- NOTE | 2018-09-27 22:40 | NUR ---
Finger stick blood sugar = 175 now.
[2018-09-27] MEDS ORDERED: NALBUPHINE HCL 10 MG/1ml INJECTION IV ONE (23:00)
--- NOTE | 2018-09-27 23:03 | NUR ---
Pt given Nubain 10mg IVP now.
--- NOTE | 2018-09-28 | NUR ---
Pt is resting with eyes closed and resp rate is even and unlabored. No s/s of any distress noted at this time. Sitter at bedside.
[2018-09-28] MEDS: PIPERACILLIN-TAZOB 2.25GM 50 ML IV SCH ×2 (01:03→05:56)
[2018-09-28] MEDS: SODIUM CHLORIDE 0.9% 1,000 ML IV SCH ×2 (02:49→06:49)
[2018-09-28 05:00] VITALS: BP 132/66
[2018-09-28 05:54] LABS: Hemoglobin 11.7 g/dL (13.5-17.5); Mean Corpuscular Hemoglobin 31.5 pg (28.0-32.0); Mean Corpuscular Hgb Conc. 34.3 g/dL (32.0-36.0); Mean Corpuscular Volume 91.7 fL (80.0-100.0); Platelet Count (auto) 322 10^3/uL (140-450); Red Blood Cells 3.71 10^6/uL (4.5-5.90); Red Cell Distribution Width 17.7 % (11.8-14.3); White Blood Cell 10.4 10^3/uL (4.4-10.8)
[2018-09-28] MEDS: CLINDAMYCIN 600MG IV 50 ML IV SCH (05:56)
[2018-09-28 05:57] LABS: Basophils % (manual) 0 (0.0-2.0); Blast Cells 0; Metamyelocytes % 0; Monocytes % (manual) 0 (0-12); Myelocytes % 0; Promyelocytes % 0; Reactive Lymphocytes 0
[2018-09-28 06:02] LABS: Albumin 2.2 g/dL (3.4-5.0); BUN/Creatinine Ratio 21.3; Calcium 7.4 mg/dL (8.5-10.1); Potassium 3.3 mmol/L (3.5-5.1)
[2018-09-28 06:05] LABS: Bilirubin, Total 0.3 mg/dL (0.2-1.0)
[2018-09-28 06:11] LABS: Band Neutrophils % (manual) 4; Eosinophils % (manual) 1 (0-7); Lymphocytes % (manual) 6 (10.0-50.0)
--- NOTE | 2018-09-28 06:32 | NUR ---
critical lab value serum glucose=43.
--- NOTE | 2018-09-28 06:32 | NUR ---
Pt c/o pain 10/10 by munoz-torres scale.
--- NOTE | 2018-09-28 06:34 | NUR ---
Hospitalist paged now.
[2018-09-28] MEDS: ACCU-CHEK COMFORT CURVE STRIP VI SCH ×4 (06:36→23:10)
[2018-09-28] MEDS: InsuLIN REG 1unit/0.01ml Soln (100units/ml) SC SCH ×4 (06:36→22:00)
--- NOTE | 2018-09-28 06:56 | NUR ---
Hospitalist Alex Vargas ACCESS CLINICIAN returned paged and no new orders received at this time.
--- NOTE | 2018-09-28 07:29 | NUR ---
RECHECK BLOOD GLUCOSE= 186
[2018-09-28] MEDS: NALBUPHINE HCL 10 MG/1ml INJECTION IV PRN ×2 (07:45→16:45)
[2018-09-28] MEDS: ALBUTEROL SULF 2.5 MG/0.5ML(0.5%) NEB SOLN NEB SCH ×4 (08:08→23:59)
[2018-09-28 09:16] VITALS: BP 112/61
[2018-09-28] MEDS ORDERED: LEVOFLOXACIN 250MG 50 ML IV SCH (10:00)
[2018-09-28] MEDS: ASPirin 81 mg TAB PO SCH (10:11)
[2018-09-28] MEDS: PANTOPRAZOLE 40 MG TAB PO SCH (10:11)
[2018-09-28] MEDS: ENOXAPARIN SOD 30 MG/0.3 ML SYRINGE SC SCH (10:11)
[2018-09-28] MEDS ORDERED: VANCOMYCIN PER PHARMACY 0 MG IV SCH (10:30)
[2018-09-28] MEDS ORDERED: LORazepam 2MG/ML-1ML VIAL IV PRN (11:00)
[2018-09-28] MEDS ORDERED: VANCOMYCIN 1GM/250ML 250 ML IV ONE (11:00)
[2018-09-28] MEDS: HALOPERIDOL LACTATE 5 MG/ML INJ VIAL IM PRN ×2 (11:53→22:08)
[2018-09-28] MEDS ORDERED: LEVO50TA7 PO (12:38)
[2018-09-28] MEDS ORDERED: DULO20CA PO (12:38)
[2018-09-28] MEDS ORDERED: PANT40TA2 PO (12:38)
[2018-09-28] MEDS ORDERED: PRE1T PO (12:38)
[2018-09-28] MEDS ORDERED: LORA0.5T12 PO (12:38)
[2018-09-28] MEDS ORDERED: DIPH50CA31 PO (12:38)
[2018-09-28] MEDS ORDERED: ONDA-155 PO (12:38)
[2018-09-28] MEDS ORDERED: LISI-275 PO (12:38)
[2018-09-28] MEDS ORDERED: VALA500T33 PO (12:38)
[2018-09-28 12:52] VITALS: BP 144/76
[2018-09-28] MEDS: [UNRECOGNIZED DRUG - OTHER] IV SCH (13:18)
[2018-09-28] MEDS: SODIUM BICARBONATE IV SCH (13:18)
[2018-09-28] MEDS: POTASSIUM CHLORIDE IV SCH (13:18)
[2018-09-28] MEDS: POTASSIUM CHL 20MEQ/100ML 100 ML IV SCH ×2 (13:18→15:05)
--- NOTE | 2018-09-28 13:50 | NUR ---
WOUND CARE NOTE: Received consult from Dr Cornell for shingles on right thigh. Patient is a 57 yo male admitted for bilateral pneumonia, acute kidney injury/renal failure, hyperglycemia, confusion/hallucination, herpes zoster and hyponatremia. Patient with a history of non-Hodgkin's Lymphoma, diabetes and hypothyroid. Discussed with bedside RN, Jeni. Patient with crusted shingle lesions to right thigh. No photos taken by nursing on admission. Patient on IV Acyclovir. No open wounds noted. Nursing instructed to leave open to air unless lesions begin to weep/drain again. No further need from wound care team.
--- NOTE | 2018-09-28 15:00 | NUR ---
IV insertion IV access obtained, via clean sterile technique by inserting 22 gauge catheter at LFA after 1 attempt(s). IV secured properly. No trauma to site. Patient tolerated well. NOTE:
--- NOTE | 2018-09-28 15:00 | NUR ---
IV removal IV TO RAC DC'd with clean sterile technique, catheter fully intact. Pressure dressing applied to site. Patient tolerated well. NOTE:
--- NOTE | 2018-09-28 15:05 | NUR ---
IV insertion IV access obtained, via clean sterile technique by inserting 22 gauge catheter at RFA after 1 attempt(s). IV secured properly. No trauma to site. Patient tolerated procedure well.
[2018-09-28] MEDS: GABAPENTIN 300 MG CAP PO SCH ×2 (15:39→22:00)
[2018-09-28 16:13] VITALS: BP 142/80
--- NOTE | 2018-09-28 16:39 | NUR ---
assessment Patient is a 57 year old male who is confused. Prior to admission patient lived home with his Susi. Per Susi patient was independent 1 week prior to admission. Patient needs assistance now due to confusion. Patients PCP is Dr Sequeira. Patient has an advanced directive. Patient has a cane and fww for home use. I informed Susi patient has a ss consult that she is worried about home safety. Susi informed me she is not worried about home safety, she needs help and possible home health if patient remains confused. Susi informed me family is willing to help once patient is discharged. I have also provided Susi with resources for private pay caregivers. Susi verbalized understanding and agreed to discharge plan home on discharge. Addendum: 09/28/18 at 1643 by Gissel MCGUIRE Amended: Links added.
[2018-09-28] MEDS: ACYCLOVIR SOD 50MG/ML 500 MG in D5W 5% 100 ML IV SCH (17:00)
[2018-09-28] MEDS: ACETAMINOPHEN 500 MG TAB PO PRN (19:03)
[2018-09-28] MEDS ORDERED: SODIUM CHLORIDE 0.9% 1,000 ML IV STA (19:08)
[2018-09-28] MEDS ORDERED: ACETAMINOPHEN 500 MG TAB PO STA (19:08)
[2018-09-28 19:29] LABS: INR 1.12 (0.9-1.15)
--- NOTE | 2018-09-28 19:40 | NUR ---
Dr Cornell at bedside and Lumbar puncture done.
[2018-09-28] MEDS ORDERED: LIDOCAINE 1% (LOCAL ANESTH.) PF 5ml SDV ONE (19:52)
[2018-09-28 20:11] VITALS: BP 127/66
--- NOTE | 2018-09-28 20:15 | NUR ---
Per Dr Cornell blood glucose checked= 282.
--- NOTE | 2018-09-28 20:46 | NUR ---
Received bed assignment 264 for transfer to [facility].
--- NOTE | 2018-09-28 21:15 | NUR ---
received pt from eduard rn poc reviewed
--- NOTE | 2018-09-28 21:15 | NUR ---
Pt transferred to room 264 and Report given to Naila WATTS. -Susi, accompanied pt to the room.
--- NOTE | 2018-09-28 21:45 | NUR ---
pts at bedside, pt restless sitter at bedside for pts safety
--- NOTE | 2018-09-28 21:52 | NUR ---
rt called for breathing rx
[2018-09-28] MEDS ORDERED: HALOPERIDOL LACTATE 5 MG/ML INJ VIAL ONE (22:00)
[2018-09-28 22:10] LABS: Protein, CSF 83.3 mg/dL (15-45)
--- NOTE | 2018-09-28 22:40 | NUR ---
haldol im given for pts increase in restlessness
[2018-09-28] MEDS: MEROPENEM 1GM IVPB 100 ML IV SCH (22:53)
[2018-09-28 22:57] LABS: CSF White Blood Cells 21 CUMM (0-5)
[2018-09-28 23:00] VITALS: BP 97/58
--- NOTE | 2018-09-28 23:36 | NUR ---
pts called updated on poc after password verified pts temp 99.2 ax
--- NOTE | 2018-09-28 23:42 | NUR ---
pt calm at this time hr 121 sats 92% cooling measures continue temp 99.0 ax
[2018-09-29] VITALS (99 sets, daily range): BP systolic 69–164; BP diastolic 40–94
--- NOTE | 2018-09-29 00:33 | NUR ---
pt awoke restless sats dropping to 45% back up to 78% rt called at bedside, pt placed on non rebreather 15 Liters sats 85% hospitalist paged for orders.
[2018-09-29] MEDS ORDERED: LORazepam 2MG/ML-1ML VIAL ONE (00:38)
[2018-09-29] MEDS ORDERED: LORazepam 2MG/ML-1ML VIAL IV ONE (00:45)
[2018-09-29] MEDS ORDERED: ETOMIDATE (2MG/ML) 20ML VIAL IV ONE (00:55)
[2018-09-29] MEDS ORDERED: SUCCINYLCHOLINE CHLORIDE 20 MG/ML 10ML VIAL IV ONE (00:56)
[2018-09-29] MEDS ORDERED: ROCURONIUM 10MG/ML 10ML VIAL IV ONE (00:56)
--- NOTE | 2018-09-29 00:58 | NUR ---
spoke with pts rt completed abg pts gave permission to intubate pt, delvin scherer witnessed pts giving permission to intubate and stated that pt is a full code
--- NOTE | 2018-09-29 01:01 | NUR ---
hospitalist at bedside with rt to intubate pt
--- NOTE | 2018-09-29 01:05 | NUR ---
etomidate 15 mg, succ 80 mg given as ordered for intubation
[2018-09-29] MEDS ORDERED: PROPOFOL 100 ML IV ONE (01:08)
--- NOTE | 2018-09-29 01:10 | NUR ---
pt intubated rt at bedside
[2018-09-29] MEDS ORDERED: NOREPINEPHRINE 8 MG/250ML KIT 250 ML IV ONE ×2 (01:48→17:04)
--- NOTE | 2018-09-29 01:58 | NUR ---
DECREASE BP BP RANGING FROM 60-80S SYSTOLIC. NEW ORDERS OBTAINED FROM HOSPITALIST TO PLACE PATIENT ON VERSED INSTEAD OF THE PROPOFOL AND TO GIVE 5% ALBUMIN IN 250 ML.
[2018-09-29] MEDS ORDERED: MIDAZOLAM DRIP 50 mg/50mL 50 ML IV ONE (02:00)
--- NOTE | 2018-09-29 02:03 | NUR ---
report given to icu nurse delvin, poc reviewed, pts in waiting room
--- NOTE | 2018-09-29 02:04 | NUR ---
ASSUMED CARE OF PATIENT JUST INTUBATED ETT SIZE 8, 24 AT THE LIP. VENT SETTINGS AC 16, TV 500, PEEP 5, FI02 100%. SEDATED WITH PROPOFOL. POX 100%. PATIENT IS ON DROPLET ISOLATION FOR SHINGLES. IVS 22G'S TO THE RFA AND LEFT FOREARM. PHYSICAL ASSESSMENT COMPLETED. WILL CONTINUE TO CLOSELY MONITOR.
[2018-09-29] MEDS ORDERED: ALBUMIN 5% 250 ML IV ONE ×2 (02:11→02:15)
[2018-09-29] MEDS: MIDAZOLAM DRIP 50 mg/50mL 50 ML IV SCH ×4 (02:37→21:40)
[2018-09-29] MEDS: SODIUM BICARBONATE IV SCH ×2 (02:38→14:09)
[2018-09-29] MEDS: [UNRECOGNIZED DRUG - OTHER] IV SCH ×2 (02:38→14:09)
[2018-09-29] MEDS: POTASSIUM CHLORIDE IV SCH ×2 (02:38→14:09)
[2018-09-29 03:54] LABS: Alcohol, Urine < 3.0 mg/dL (0-5); Amphetamine Screen, Urine NEGATIVE (NEGATIVE); Barbiturate Scree,Urine NEGATIVE (NEGATIVE); Benzodiazephine Screen, Urine NEGATIVE (NEGATIVE); Cannabinoid Screen, Urine POSITIVE (NEGATIVE); Cocaine Screen, Urine NEGATIVE (NEGATIVE); Opiate Scree,Urine NEGATIVE (NEGATIVE); Phencyclidine Screen, Urine NEGATIVE (NEGATIVE)
--- NOTE | 2018-09-29 04:00 | NUR ---
INSERTED OLIVO CATHETER AND OG TUBE AND ADDITIONAL IV RIGHT FOREARM 22G
--- NOTE | 2018-09-29 04:15 | NUR ---
REPORT GIVEN TO SOLOMON WEIGHT REDUCING TECHNICIAN WHO WILL ASSUME CARE OF PATIENT
--- NOTE | 2018-09-29 05:05 | NUR ---
Patient RR in the high 30s, Versed kiana at this time. Hospitalist paged.
[2018-09-29] MEDS ORDERED: fentaNYL Drip 2500mCg/250mlNS 250 ML IV ONE (05:32)
[2018-09-29] MEDS: ALBUTEROL SULF 2.5 MG/0.5ML(0.5%) NEB SOLN NEB SCH ×2 (05:39→13:09)
[2018-09-29] MEDS: fentaNYL Drip 2500mCg/250mlNS 250 ML IV SCH ×2 (05:47→21:41)
[2018-09-29] MEDS: GABAPENTIN 300 MG CAP PO SCH (05:47)
--- NOTE | 2018-09-29 05:55 | NUR ---
Orders received from Alex Vargas NP. Per marco antonio MEDINA to keep MAP >60.
--- NOTE | 2018-09-29 06:18 | NUR ---
Respiratory note: FIO2 HAS BEEN INCREASED TO 50%. POX NOTED TO BE 90% ON 40% FIO2. CHARGE NURSE IS AT BEDSIDE AND AWARE.
[2018-09-29] MEDS: InsuLIN REG 1unit/0.01ml Soln (100units/ml) SC SCH ×3 (06:59→18:07)
[2018-09-29] MEDS: ACCU-CHEK COMFORT CURVE STRIP VI SCH ×3 (06:59→18:06)
--- NOTE | 2018-09-29 07:45 | NUR ---
ASSESS- PT. LYING IN BED ON VENT SIZE # 8.0 ET, 24 AT THE LIP, AC-16, TV-500, PEEP-5, FIO2-50%. LUNGS CLEAR TIMMY. INSPIRATORY AND EXPIRATORY. PT. HAS GAG/COUGH REFLEX. TIMMY. HAND MITTENS IN PLACE TO PREVENT PULLING OF TUBES. NO MOVEMENT OF EXTREMITIES SEEN AT THIS TIME. RESPONDS TO PAINFUL/TACTILE STIMULI. ON VERSED GTT. AT 15 MG./HR. AND FENTANYL GTT. AT 75. MCG. PT. HAS RETRACTIVE BREATHING, RR UPPER 20'S. TITRATING FENTANYL GTT. UP. OGT IN PLACE, CLAMPED. PT. IS NPO. ABD. SOFT, FLAT. BOWEL SOUNDS HYPOACTIVE ALL FOUR QUADRANTS. F/C TO GRAVITY WITH CLEAR YELLOW URINE. RADIAL PULSES STRONG, PALPABLE TIMMY. PEDAL PULSES STRONG, PALPABLE TIMMY. NO EDEMA. RT. THIGH, RT. BUTTOCK, RT. FLANK WITH ACTIVE SHINGLES OPEN TO AIR, LT. FOREARM WITH CLOSED SCAB OPEN TO AIR. ON DROPLET PRECAUTIONS.
--- NOTE | 2018-09-29 08:00 | NUR ---
O2 SATS 89% ON 50% FIO2 ON VENT. PT. RR UPPER 20'S WITH RETRACTIVE BREATHING. ON VERSED GTT. AT 15 MG./HR., TITRATING FENTANYL GTT. UP TO HELP IMPROVE BREATHING.
[2018-09-29 08:08] LABS: BUN/Creatinine Ratio 25.3; Calcium 7.7 mg/dL (8.5-10.1); Potassium 3.4 mmol/L (3.5-5.1)
--- NOTE | 2018-09-29 08:30 | NUR ---
Family updated on pt status Family of DENNYS LOPES JR updated on patient's status and condition. All questions and concerns addressed. verbalized understanding. VISITING AT THE BS.
--- NOTE | 2018-09-29 08:30 | NUR ---
O2 SATS 94%. RR DECREASED TO LOW TO MID 20'S. PT. STILL HAS RETRACTIVE BREATHING. LUNGS CLEAR TIMMY. INSPIRATORY AND EXPIRATORY.
[2018-09-29] MEDS: PANTOPRAZOLE 40 MG TAB PO SCH (10:00)
[2018-09-29] MEDS: ASPirin 81 mg TAB PO SCH (10:13)
[2018-09-29] MEDS: ENOXAPARIN SOD 30 MG/0.3 ML SYRINGE SC SCH (10:13)
[2018-09-29] MEDS: VANCOMYCIN 750 MG in D5W 5% 250 ML IV SCH ×2 (10:14→22:06)
--- NOTE | 2018-09-29 11:00 | NUR ---
TECH AT BS FOR EEG.
--- NOTE | 2018-09-29 11:20 | NUR ---
EEG COMPLETED AT BEDSIDE. STEFANIE BENAVIDEZ.
[2018-09-29] MEDS: MEROPENEM 1GM IVPB 100 ML IV SCH ×2 (11:37→17:51)
[2018-09-29] MEDS ORDERED: traMADol HCL 50 MG TAB PO PRN (11:45)
--- NOTE | 2018-09-29 13:05 | NUR ---
DR. ROTHMAN Provider/Hospitalist at bedside. GAVE UPDATE ON PT. SPOKE WITH PT'S. AT THE BS. NEW ORDERS RECEIVED.
[2018-09-29] MEDS ORDERED: MICAFUNGIN SODIUM 100 MG in SODIUM CHL 0.9% 100 ML IV ONE (13:15)
[2018-09-29] MEDS ORDERED: DEXTROSE (50%) 50ML SYRG IV PRN (13:15)
--- NOTE | 2018-09-29 13:20 | NUR ---
DR. VERGARA Provider/Hospitalist at bedside.
--- NOTE | 2018-09-29 13:29 | NUR ---
Respiratory note: PEEP INCREASED TO [address] ROTHMAN. POX 97%. NEW SETTINGS: AC RR 16, VT 500, PEEP 8. 60% FIO2.
[2018-09-29] MEDS ORDERED: MEROPENEM 1GM IVPB 100 ML IV SCH (14:00)
--- NOTE | 2018-09-29 15:20 | NUR ---
STEPHAN RN AT FOR PICC LINE PLACEMENT. DR. ROTHMAN ORDERED AND SIGNED CONSENT. SIGNED CONSENT.
--- NOTE | 2018-09-29 16:14 | NUR ---
PICC line placement Patient/Patient significant other educated on need for PICC line placement. All risks and benefits explained and all questions and concerns addressed prior to procedure. Noted past medical history and allergies with no contraindications. INR and Plt counts within acceptable range. 5 fr PICC line inserted via right basilic vein using [employer] US and Tip Location System. Sterile technique with maximum barrier precautions utilized. Blood return obtained from each of the three lumens and each flushed easily with NS using proper technique. PICC secured with Stat-lock; biodisc and occlusive dressing applied. Less than 5ml EBL noted during procedure. PICC line 42cm internally w/ 0cm externally. Stat portable chest x-ray obtained for PICC tip placement. To notify medical staffing coordinator when line able to be used. *Baseline Arm Circumference 25cm at 1cm above insertion site. PICC lot # [id number]. Note:
[2018-09-29] MEDS: ACYCLOVIR SOD 50MG/ML 500 MG in D5W 5% 100 ML IV SCH (16:15)
[2018-09-29] MEDS ORDERED: LIDOCAINE 1% (LOCAL ANESTH.) PF 5ml SDV ID ONE (16:30)
--- NOTE | 2018-09-29 16:34 | NUR ---
OK to use PICC line Xray completed. PCXR shows PICC line tip in the region of the cavoatrial junction; radiologist confirmation pending. Alex Whittaker. notified now OK to use PICC line.
--- NOTE | 2018-09-29 16:35 | NUR ---
IV removal IV DC'd with sterile technique, catheter fully intact. Pressure dressing applied to site. Patient tolerated procedure well. Discharged with aftercare instructions per MD. NOTE: IV H.L. 22 GAUGE LFA.
--- NOTE | 2018-09-29 16:55 | NUR ---
SBP DECREASED LOW 80'S AFTER 2 CYCLES. PAGED ADAM GRANDE FOR VASOPRESSORS.
--- NOTE | 2018-09-29 17:01 | NUR ---
returned call CHRISTIANE, ADAM returned call, updated on patient status and reason for call, orders received. Continue care.
[2018-09-29] MEDS: NOREPINEPHRINE 8 MG/250ML KIT 250 ML IV SCH (17:10)
--- NOTE | 2018-09-29 17:10 | NUR ---
SBP UPPER 70'S TO LOW 80'S. ST, HR 130'S. STARTED PT. ON LEVOPHED GTT. AT 4 MCG. MONITORING BP.
--- NOTE | 2018-09-29 17:45 | NUR ---
SBP INCREASED TO 100'S-110. CONTINUING TO MONITOR BP.
--- NOTE | 2018-09-29 18:45 | NUR ---
DR. PICKENS Provider/Hospitalist at bedside. GAVE UPDATE ON PT.
--- NOTE | 2018-09-29 19:30 | NUR ---
MD ROUNDS DR. PICKENS TALKING TO THE FAMILY
--- NOTE | 2018-09-29 19:50 | NUR ---
OPEN NOTES RECEIVED PATIENT SEDATED WITH IV VERSED AND FENTANYL. INTUBATED ON AC MODE FIO2 50%. LUNG SOUNDS CLEAR. PATIENT NOTED STACKING BREATHS. WILL INCREASE SEDATION TO KEEP PATIENT COMFORTABLE. PATIENT IS FEBRILE, TEMP 101.4F - WILL DO SPONGE BATH AND GIVE TYLENOL PATIENT IS TACHYCARDIC HR 134/MIN, BP SUPPORTED BY IV LEVOPHED AT 6MCG/MIN ON DROPLET ISOLATION DUE TO ACTIVE SHINGLES AT RIGHT THIGH, FLANK AND LOWER BACK OGT CLAMPED - ASPIRATED ABOUT 20MLS GREENISH OUTPUT. HYPOACTIVE BS NOTED TO HAVE SCABS AT BOTH ARMS AND KNEE AREA. REPOSITIONED, ORAL CARE DONE FULL ASSESSMENT -REFER INTERVENTIONS
[2018-09-29] MEDS: ACETAMINOPHEN 500 MG TAB PO PRN (21:07)
--- NOTE | 2018-09-29 22:00 | NUR ---
TEMP RE-ASSESS PATIENT'S TEMP 100.6F AFTER SPONGE BATH,ICE PACKS AND TYLENOL HR 110/MIN WILL CONTINUE TO MONITOR
[2018-09-29] MEDS: FAMOTIDINE (10MG/ML) 2ML VL IV SCH (22:09)
[2018-09-29] MEDS: SODIUM CHLOR 0.9% PF (SALINE LOCK) 10ML VIAL/SYR IV SCH (22:10)
[2018-09-30] VITALS (108 sets, daily range): BP systolic 80–139; BP diastolic 37–93
[2018-09-30] MEDS: ACCU-CHEK COMFORT CURVE STRIP VI SCH ×5 (00:18→23:41)
[2018-09-30] MEDS: InsuLIN REG 1unit/0.01ml Soln (100units/ml) SC SCH ×5 (00:32→23:53)
[2018-09-30] MEDS: MIDAZOLAM DRIP 50 mg/50mL 50 ML IV SCH ×6 (02:11→21:47)
[2018-09-30] MEDS: MEROPENEM 1GM IVPB 100 ML IV SCH ×3 (02:14→17:44)
[2018-09-30 05:24] LABS: Hematocrit 32.9 % (41.0-53.0); Mean Corpuscular Hgb Conc. 33.5 g/dL (32.0-36.0); Mean Corpuscular Volume 92.4 fL (80.0-100.0); Platelet Count (auto) 298 10^3/uL (140-450); Red Blood Cells 3.56 10^6/uL (4.5-5.90); Red Cell Distribution Width 18.8 % (11.8-14.3)
[2018-09-30 05:30] LABS: Basophils % (manual) 0 (0.0-2.0); Blast Cells 0; Eosinophils % (manual) 0 (0-7); Metamyelocytes % 0; Myelocytes % 0; Promyelocytes % 0; Reactive Lymphocytes 0
[2018-09-30 05:37] LABS: Albumin 1.9 g/dL (3.4-5.0); BUN/Creatinine Ratio 24.1; Calcium 7.6 mg/dL (8.5-10.1); Potassium 3.2 mmol/L (3.5-5.1)
[2018-09-30 05:40] LABS: Bilirubin, Total 0.5 mg/dL (0.2-1.0); Total Protein 5.5 g/dL (6.4-8.2)
[2018-09-30 06:29] LABS: Band Neutrophils % (manual) 5; Lymphocytes % (manual) 2 (10.0-50.0); Monocytes % (manual) 9 (0-12)
--- NOTE | 2018-09-30 06:37 | NUR ---
TALKED TO ADAM MEJÍA INFORMED OF POTASSIUM RESULT TELEPHONE ORDER RECEIVED AND VERIFIED
[2018-09-30] MEDS ORDERED: POTASSIUM CHL 20MEQ/100ML 100 ML IV ONE (06:45)
[2018-09-30] MEDS: LEVOTHYROXINE SODIUM 25 MCG TAB PO SCH (06:59)
--- NOTE | 2018-09-30 07:30 | NUR ---
ASSESS- PT. LYING IN BED ON VENT SIZE # 8.0 ET, 24 AT THE LIP, AC-16, TV-500, PEEP-8, FIO2-50%. LUNGS CLEAR TIMMY. INSPIRATORY AND EXPIRATORY. PT. HAS HYPOACTIVE GAG/COUGH REFLEX. PUPILS 2 AND SLUGGISH TIMMY. ON VERSED GTT. AT 15 MG./HR. AND FENTANYL GTT. AT 150 MCG. RESPONDS TO PAINFUL/TACTILE STIMULI. OGT IN PLACE, CLAMPED. ABD. SOFT, FLAT. BOWEL SOUNDS HYPOACTIVE ALL FOUR QUADRANTS. F/C TO GRAVITY WITH CLEAR DK. YELLOW URINE. RADIAL PULSES STRONG, PALPABLE TIMMY. PEDAL PULSES STRONG, PALPABLE TIMMY. NO EDEMA. RECTAL PROBE IN PLACE, TEMP 99.1. ST, HR 100'S WITHOUT ECTOPY. PICC WILLARD TLC INTACT. RT. THIGH, RT. BUTTOCK AND RT. THIGH WITH ACTIVE SHINGLES, OPEN TO AIR. SCAB LT. FOREARM OPEN TO AIR. SBP ONE TEENS. LEVOPHED GTT. OFF. ON DROPLET PRECAUTIONS.
[2018-09-30] MEDS: POTASSIUM CHLORIDE IV SCH ×2 (07:59→21:48)
[2018-09-30] MEDS: SODIUM BICARBONATE IV SCH ×2 (07:59→21:48)
[2018-09-30] MEDS: [UNRECOGNIZED DRUG - OTHER] IV SCH ×2 (07:59→21:48)
[2018-09-30] MEDS: MICAFUNGIN SODIUM 100 MG in SODIUM CHL 0.9% 100 ML IV SCH (08:52)
[2018-09-30 09:06] LABS: Immunoglobulin G, Serum 476 mg/dL (700-1600); Serum Albumin 2.9 g/dL (3.5-5.5)
[2018-09-30] MEDS: VANCOMYCIN 750 MG in D5W 5% 250 ML IV SCH ×2 (09:43→21:58)
[2018-09-30] MEDS: FAMOTIDINE (10MG/ML) 2ML VL IV SCH ×2 (09:43→21:47)
[2018-09-30] MEDS: ACETAMINOPHEN 500 MG TAB PO PRN (09:44)
--- NOTE | 2018-09-30 09:44 | NUR ---
TEMP 100.6 RECTALLY WITH ICE PACKS UNDER TIMMY. AXILLA. MED. PT. WITH TYLENOL [address], HR ONE TEENS. MONITORING TEMP.
[2018-09-30] MEDS ORDERED: FAMOTIDINE (10MG/ML) 2ML VL IV SCH (10:00)
--- NOTE | 2018-09-30 10:05 | NUR ---
DR. MARCUM Provider/Hospitalist at bedside. GAVE UPDATE ON PT. SPOKE WITH PT'S. AT BS. NEW ORDERS RECEIVED.
[2018-09-30] MEDS: ENOXAPARIN SOD 40 MG/0.4 ML SYRINGE SC SCH (10:18)
[2018-09-30] MEDS: SODIUM CHLOR 0.9% PF (SALINE LOCK) 10ML VIAL/SYR IV SCH ×2 (10:18→21:49)
[2018-09-30] MEDS ORDERED: AZITHROMYCIN 500MG/ 250ML 250 ML IV ONE (10:30)
--- NOTE | 2018-09-30 10:40 | NUR ---
TEMP DECREASED TO 100.2 RECTALLY. HR DECREASED TO UPPER 100'S TO 110'S.
--- NOTE | 2018-09-30 12:00 | NUR ---
PT. HAD SM. LIQUID BROWN STOOL. BENEDICT CARE DONE AND LINENS CHANGED.
--- NOTE | 2018-09-30 13:00 | NUR ---
TEMP 98.6 RECTALLY. HR 100'S, ST.
--- NOTE | 2018-09-30 14:00 | NUR ---
FAMILY VISITING AT THE .
--- NOTE | 2018-09-30 14:10 | NUR ---
IV removal IV DC'd with sterile technique, catheter fully intact. Pressure dressing applied to site. Patient tolerated procedure well. Discharged with aftercare instructions per MD. NOTE: IV RT. FOREARM H.L.
[2018-09-30] MEDS: fentaNYL Drip 2500mCg/250mlNS 250 ML IV SCH (14:14)
--- NOTE | 2018-09-30 14:15 | NUR ---
IV removal IV DC'd with clean sterile technique, catheter fully intact. Pressure dressing applied to site. Patient tolerated well. NOTE: IV LT. FOREARM H.L.
--- NOTE | 2018-09-30 15:00 | NUR ---
TEMP 99.3 RECTALLY. PLACED ICE PACKS TIMMY. AXILLA. REMOVED SHEET.
[2018-09-30] MEDS: NOREPINEPHRINE 8 MG/250ML KIT 250 ML IV SCH (15:14)
[2018-09-30] MEDS: ACYCLOVIR SOD 50MG/ML 500 MG in D5W 5% 100 ML IV SCH (16:06)
--- NOTE | 2018-09-30 16:30 | NUR ---
TEMP INCREASED TO 99.9 RECTALLY. HR UPPER ONE TEENS.
--- NOTE | 2018-09-30 16:35 | NUR ---
Respiratory note: PT BITING DOWN ON ETT WITH NOTABLE DESATS. CHANGED TO HOLISTER WITH BITE BLOCK. PT NOW STABLE WITH POX 96%. NOTIFIED STEFANIE ZAMORA OF CHANGES.
--- NOTE | 2018-09-30 16:45 | NUR ---
DR. PICKENS Provider/Hospitalist at bedside. GAVE UPDATE. WOULD LIKE TO SPEAK WITH DR. PICKENS, GAVE HIM HER PHONE #.
--- NOTE | 2018-09-30 16:55 | NUR ---
O2 SATS DECREASED TO 87%-88% ON VENT WITH GOOD PLETH, ON FIO2-40%. GAVE PT. 100% FIO2 TIMES 2, SATS INCREASED TO 99% THEN AFTER FEW MINUTES DECREASED BACK TO 88%. SUCTIONING SCANT AMOUNT THIN WHITE SECRETIONS VIA ET. NOTIFIED RT WHO INCREASED FIO2 TO 45% ON VENT.
[2018-09-30] MEDS: ACETAMINOPHEN 650 mg PER 20 mL UD GT PRN (17:20)
--- NOTE | 2018-09-30 17:20 | NUR ---
TEMP 100.0 RECTALLY. MED. PT. WITH TYLENOL 650 MG. ELIXER VIA OGT. ICE PACKS REMAIN IN PLACE TIMMY. AXILLA.
--- NOTE | 2018-09-30 18:15 | NUR ---
TEMP 100.4 RECTALLY NOW. FAN ON PT.
--- NOTE | 2018-09-30 19:50 | NUR ---
OPEN NOTES RECEIVED PATIENT SEDATED WITH IV VERSED AND FENTANYL. INTUBATED ON AC MODE FIO2 50%. LUNG SOUNDS CLEAR. PATIENT NOTED STACKING BREATHS BUT LESSER TONIGHT. ON DROPLET ISOLATION DUE TO ACTIVE SHINGLES AT RIGHT THIGH, FLANK AND LOWER BACK PATIENT'S TEMP 100F RECTALLY- WILL DO COOLING MEASURES PATIENT IS TACHYCARDIC HR 107/MIN, BP STABLE. OGT CLAMPED - NPO. ON IVF D5 1/2 NS + 10MEQ KCL + NAHCO3 AT 75ML/HR NOTED TO HAVE SCABS AT LEFT ARM AND BILATERAL KNEE AREA. REPOSITIONED, ORAL CARE DONE FULL ASSESSMENT -REFER INTERVENTIONS
--- NOTE | 2018-09-30 20:23 | NUR ---
Family updated on pt status of DENNYS LOPES JR called. Correct password was given by her. Updated Susi on patient's status and condition. All questions and concerns addressed. verbalized understanding.
--- NOTE | 2018-09-30 22:00 | NUR ---
VANCOMYCIN Vancomycin trough = 9.2 will give Vancomycin as ordered
--- NOTE | 2018-09-30 22:13 | NUR ---
Family updated on pt status of DENNYS LOPES JR called. Correct password was given by her. Updated Susi on patient's status and condition. All questions and concerns addressed. verbalized understanding. She requests to be called for update by the MDs if she is not around the ICU/hospital.
[2018-10-01] VITALS (106 sets, daily range): BP systolic 96–147; BP diastolic 57–82
[2018-10-01] MEDS: MEROPENEM 1GM IVPB 100 ML IV SCH ×3 (01:43→18:54)
[2018-10-01] MEDS: MIDAZOLAM DRIP 50 mg/50mL 50 ML IV SCH ×5 (01:46→19:55)
--- NOTE | 2018-10-01 03:00 | NUR ---
TEMP PATIENT'S TEMP 100F WILL DO SPONGE BATH AND COOLING MEASURES
--- NOTE | 2018-10-01 03:05 | NUR ---
Patient bathe/linen change Patient given complete bath. Skin integrity assessed for any changes. Linens changed. Patient repositioned for comfort.
[2018-10-01] MEDS: ACETAMINOPHEN 650 mg PER 20 mL UD GT PRN ×2 (03:27→16:06)
--- NOTE | 2018-10-01 03:27 | NUR ---
TEMP RE-ASSESS PATIENT'S TEMP 100.4 F TYLENOL GIVEN WILL CONTINUE TO MONITOR
--- NOTE | 2018-10-01 03:55 | NUR ---
CALLED PATIENT'S MARIA FERNANDA CALLED. UPDATED HER AFTER CORRECT PASSWORD WAS GIVEN. ALL QUESTIONS ADDRESSED. VERBALIZED UNDERSTANDING
--- NOTE | 2018-10-01 04:00 | NUR ---
SEDATION PATIENT IS DEEPLY SEDATED. HYPOACTIVE COUGH AND GAG. UNABLE TO DECREASE SEDATION BECAUSE PATIENT IS STILL STACKING BREATHS. RR 16-22/MIN. SATURATION 97%. WILL CONTINUE TO MONITOR
[2018-10-01 04:19] LABS: BUN/Creatinine Ratio 32.8; Basophils # (auto) 0 uL; Basophils % (auto) 0.1 % (0.0-2.0); Calcium 7.5 mg/dL (8.5-10.1); Eosinophils # (auto) 0.1 uL; Eosinophils % (auto) 0.4 % (0.0-7.0); Lymphocytes # (auto) 0.4 uL; Lymphocytes % (auto) 2.3 % (10.0-50.0); Mean Corpuscular Hemoglobin 31.6 pg (28.0-32.0); Mean Corpuscular Hgb Conc. 34.4 g/dL (32.0-36.0); Monocytes # (auto) 0.5 uL; Monocytes % (auto) 2.7 % (0.0-12.0); Neutrophils # (auto) 16.2 uL; Neutrophils % (auto) 94.5 % (37.0-80.0); Nucleated Red Blood Cells % 0.3 %; Platelet Count (auto) 221 10^3/uL (140-450); Potassium 3.2 mmol/L (3.5-5.1); Red Blood Cells 3.48 10^6/uL (4.5-5.90); Red Cell Distribution Width 18.3 % (11.8-14.3); White Blood Cell 17.1 10^3/uL (4.4-10.8)
[2018-10-01] MEDS: ACCU-CHEK COMFORT CURVE STRIP VI SCH ×4 (06:11→23:45)
[2018-10-01] MEDS: fentaNYL Drip 2500mCg/250mlNS 250 ML IV SCH ×2 (06:11→23:23)
--- NOTE | 2018-10-01 06:20 | NUR ---
HOSPITALIST PAGED HOSPITALIST PAGED FOR POTASSIUM RESULT
[2018-10-01] MEDS: LEVOTHYROXINE SODIUM 25 MCG TAB PO SCH (06:31)
[2018-10-01] MEDS: InsuLIN REG 1unit/0.01ml Soln (100units/ml) SC SCH ×4 (06:31→23:46)
--- NOTE | 2018-10-01 06:41 | NUR ---
HOSPITALIST CALLED BACK TALKED TO ADAM MEJÍA. INFORMED OF POTASSIUM RESULT TELEPHONE ORDER RECEIVED AND VERIFIED
--- NOTE | 2018-10-01 07:00 | NUR ---
Opening shift note: Report received from STEFANIE Cm. Patient on fentanyl 140mcg and versed (max) due to breathing fast and irritation. On ventilator and OGT clamped. Needs nutrition ordered.
[2018-10-01] MEDS: POTASSIUM CHL 20MEQ/100ML 100 ML IV SCH ×2 (07:02→09:17)
--- NOTE | 2018-10-01 07:42 | NUR ---
Dr. Cornell at bedside: Updated on patients status, patient on max versed. No cough, or gag at this time.
[2018-10-01] MEDS: MICAFUNGIN SODIUM 100 MG in SODIUM CHL 0.9% 100 ML IV SCH (09:17)
[2018-10-01] MEDS: ENOXAPARIN SOD 40 MG/0.4 ML SYRINGE SC SCH (09:51)
[2018-10-01] MEDS: FAMOTIDINE (10MG/ML) 2ML VL IV SCH ×2 (09:51→22:16)
[2018-10-01] MEDS: VANCOMYCIN 750 MG in D5W 5% 250 ML IV SCH ×2 (09:51→20:22)
[2018-10-01] MEDS: SODIUM CHLOR 0.9% PF (SALINE LOCK) 10ML VIAL/SYR IV SCH ×2 (09:52→22:16)
[2018-10-01] MEDS ORDERED: AZITHROMYCIN 500MG/ 250ML 250 ML IV SCH (10:00)
[2018-10-01] MEDS ORDERED: IV IMMUNE GLOBULIN(IVIG) 10% 20G/200ML IV ONE ×3 (11:00→14:00)
[2018-10-01] MEDS ORDERED: diphenhdrAMINE HCL 50 MG/1 ML VL IV ONE (11:00)
[2018-10-01] MEDS ORDERED: methylPREDNISolone SOD SUCC 125 MG/2 ML VL IV ONE (11:00)
--- NOTE | 2018-10-01 11:46 | NUR ---
Nutrition Assessment Notes please see attached link for complete assessment Est. Needs IBW (72 kg): 5335-4476 kcal (25-30 kcal/kgBW), 72-93 gms pro (1.0-1.3 gms/kgBW r/t severe hypoalb). Will continue to monitor pertinent labs and reassess nutrient need prn Addendum: 10/01/18 at [address] Amended: Links added.
[2018-10-01] MEDS: SODIUM BICARBONATE IV SCH (12:43)
[2018-10-01] MEDS: [UNRECOGNIZED DRUG - OTHER] IV SCH (12:43)
[2018-10-01] MEDS: POTASSIUM CHLORIDE IV SCH (12:43)
--- NOTE | 2018-10-01 14:00 | NUR ---
Pharmacy only has 20grams of IVIG waiting for Dr. Almeida return call if okay to given 20gms.
--- NOTE | 2018-10-01 14:40 | NUR ---
ADVANCED ETT 2CM PER XRAY AND DR. ROTHMAN'S ORDERS.
[2018-10-01] MEDS ORDERED: FUROSEMIDE 20 MG/2 ML VIAL IV ONE (14:45)
[2018-10-01] MEDS ORDERED: POTASSIUM EFFERVESENT TAB 25 MEQ GT ONE (14:45)
--- NOTE | 2018-10-01 14:50 | NUR ---
Dr. Duarte at bedside: Updated and sons regarding plan of care. Start tube feeding, IVF discontinued,IVIG discontinued ordered potassium, and lasix. Orders carried out.
--- NOTE | 2018-10-01 15:00 | NUR ---
Sedation Vacation: Patient did have gag reflex, breathing fast and got tachycardic. Turned sedation back on.
--- NOTE | 2018-10-01 15:00 | NUR ---
Glucerna started at 10ml/hr: Will monitor and increase if tolerating.
[2018-10-01] MEDS: Glucerna 1.2 Cal 1Liter BOTTLE GT SCH (15:03)
[2018-10-01] MEDS: ACYCLOVIR SOD 50MG/ML 500 MG in D5W 5% 100 ML IV SCH (15:44)
--- NOTE | 2018-10-01 16:18 | NUR ---
and sons at bedside all day.
--- NOTE | 2018-10-01 16:21 | NUR ---
Dr. Kaur at bedside; IVIG ordered, benadryl and solumedrol ordered 30 minutes prior IVIG. Coordinating with pharmacy, don't have right dose.
[2018-10-01] MEDS: NOREPINEPHRINE 8 MG/250ML KIT 250 ML IV SCH (17:01)
--- NOTE | 2018-10-01 19:06 | NUR ---
Endorsed care to STEFANIE Cm.
--- NOTE | 2018-10-01 19:45 | NUR ---
OPEN NOTES ASSUMED CARE OF PATIENT PATIENT SEDATED WITH IV VERSED AND FENTANYL. INTUBATED ON AC MODE FIO2 50%. LUNG SOUNDS CLEAR. ON DROPLET ISOLATION DUE TO ACTIVE SHINGLES AT RIGHT THIGH, FLANK AND LOWER BACK NO FEVER TONIGHT. PATIENT IS STILL TACHYCARDIC HR 104/MIN, BP STABLE. OGT IN PLACED WITH ONGOING FEEDING OF GLUCERNA AT 20ML/HR, RESIDUAL CHECKED = 5MLS WILL CONTINUE TO MONITOR FULL ASSESSMENT DONE- REFER INTERVENTIONS REPOSITIONED, ORAL CARE DONE.
--- NOTE | 2018-10-01 21:00 | NUR ---
CALLED PATIENT'S MARIA FERNANDA CALLED. UPDATED HER AFTER CORRECT PASSWORD WAS GIVEN. ALL QUESTIONS ADDRESSED. VERBALIZED UNDERSTANDING
--- NOTE | 2018-10-01 22:00 | NUR ---
TUBE FEEDING OGT RESIDUAL CHECKED = 10MLS INCREASED FEEDS TO 30ML/HR WILL CONTINUE TO MONITOR
--- NOTE | 2018-10-01 22:45 | NUR ---
ELIMINATION/HYGIENE PATIENT HAD A LARGE AMOUNT OF SOFT TO LOOSE BROWNISH STOOL. PATIENT'S BODY CLEANED WITH CHG WIPES. PERIANAL AREA CLEANED WITH SOAP AND WATER. PARTIAL LINEN CHANGED DONE. REPOSITIONED.
[2018-10-02] VITALS (102 sets, daily range): BP systolic 103–169; BP diastolic 61–97
[2018-10-02] MEDS: MIDAZOLAM DRIP 50 mg/50mL 50 ML IV SCH ×5 (00:12→21:00)
[2018-10-02] MEDS: MEROPENEM 1GM IVPB 100 ML IV SCH ×3 (01:44→18:37)
--- NOTE | 2018-10-02 02:00 | NUR ---
TUBE FEEDING OGT RESIDUAL CHECKED = 10MLS INCREASED FEEDING TO 30ML/HR WILL CONTINUE TO MONITOR
[2018-10-02 04:16] LABS: Basophils # (auto) 0 uL; Basophils % (auto) 0.1 % (0.0-2.0); Eosinophils # (auto) 0 uL; Eosinophils % (auto) 0.2 % (0.0-7.0); Hematocrit 31.8 % (41.0-53.0); Hemoglobin 10.9 g/dL (13.5-17.5); Lymphocytes # (auto) 0.3 uL; Lymphocytes % (auto) 1.7 % (10.0-50.0); Mean Corpuscular Hemoglobin 31.4 pg (28.0-32.0); Mean Corpuscular Hgb Conc. 34.1 g/dL (32.0-36.0); Mean Corpuscular Volume 92.2 fL (80.0-100.0); Monocytes # (auto) 0.5 uL; Monocytes % (auto) 2.7 % (0.0-12.0); Neutrophils # (auto) 17.4 uL; Neutrophils % (auto) 95.3 % (37.0-80.0); Nucleated Red Blood Cells % 0.2 %; Platelet Count (auto) 123 10^3/uL (140-450); Red Blood Cells 3.45 10^6/uL (4.5-5.90); White Blood Cell 18.3 10^3/uL (4.4-10.8)
[2018-10-02 04:32] LABS: Calcium 7.5 mg/dL (8.5-10.1); Potassium 3.3 mmol/L (3.5-5.1)
[2018-10-02 04:34] LABS: BUN/Creatinine Ratio 42.6
[2018-10-02] MEDS ORDERED: POTASSIUM EFFERVESENT TAB 25 MEQ GT ONE (05:45)
--- NOTE | 2018-10-02 06:00 | NUR ---
RN NOTES PATIENT REMAINED SEDATED. STILL NOTED PATIENT STACKING BREATHS ON AND OFF. VS STABLE. TEMP 99.5F WILL CONTINUE TO MONITOR
[2018-10-02] MEDS: ACCU-CHEK COMFORT CURVE STRIP VI SCH ×3 (06:14→17:11)
[2018-10-02] MEDS: VANCOMYCIN 750 MG in D5W 5% 250 ML IV SCH ×2 (06:25→16:20)
[2018-10-02] MEDS: InsuLIN REG 1unit/0.01ml Soln (100units/ml) SC SCH ×3 (06:26→17:37)
[2018-10-02] MEDS: LEVOTHYROXINE SODIUM 25 MCG TAB PO SCH (07:23)
[2018-10-02 08:06] LABS: Albumin, CSF 42 mg/dL (11-48); CSF IgG Index 0.6 (0.0-0.7); CSF/Serum Alb. Index 14 (0-8); IgG, Quant, CSF 3.8 mg/dL (0.0-8.6); IgG, Syn Rate,CSF 2.2 mg/day (-9.9 TO +3.3); IgG/Alb Ratio, CSF 0.09 (0.00-0.25)
[2018-10-02] MEDS: MICAFUNGIN SODIUM 100 MG in SODIUM CHL 0.9% 100 ML IV SCH ×2 (09:00→11:00)
--- NOTE | 2018-10-02 09:00 | NUR ---
SON AND OF PT AT THE BEDSIDE, ADDRESSED THEIR QUESTIONS ABOUT CARE
--- NOTE | 2018-10-02 09:00 | NUR ---
0900 MYCAMINE ON BACK ORDER PER [facility]. WHEN MEDICATION AVAILABLE MEDIATION TO BE RETIMED.
--- NOTE | 2018-10-02 10:00 | NUR ---
Sedation titrated Attempted to decrease sedt Addendum: 10/02/18 at 1553 by Mala Beckford RN Attempted to decrease sedation Fent decreased to 140mcg, with increase work of breathing via abd. muscle use. Sedation placed back to 150mcg. Family at bedside aware.
[2018-10-02] MEDS: FAMOTIDINE (10MG/ML) 2ML VL IV SCH ×2 (10:43→22:17)
[2018-10-02] MEDS: ENOXAPARIN SOD 40 MG/0.4 ML SYRINGE SC SCH (10:43)
[2018-10-02] MEDS: SODIUM CHLOR 0.9% PF (SALINE LOCK) 10ML VIAL/SYR IV SCH ×2 (10:43→22:17)
--- NOTE | 2018-10-02 11:00 | NUR ---
PT WAS PLACED ON SCD TO BILATERAL LOWER EXTREMITIES. PT'S FAMILY WAS EDUCATED ON SCD USE.
--- NOTE | 2018-10-02 12:30 | NUR ---
DR. ROTHMAN AT THE BEDSIDE RECEIVED 'S ORDER TO DECREASE FIO2 TO 40%, RT NOTIFIED. Addendum: 10/02/18 at 1550 by Mala Beckford RN Md updated family at bedside regarding plan of care. Questions and concerns addressed. See new orders.
--- NOTE | 2018-10-02 12:45 | NUR ---
ICE CREAM MAN AT THE BEDSIDE
--- NOTE | 2018-10-02 14:40 | NUR ---
MD CALLED WITH CRITICAL RESULTS RE: RIGHT UPPER ARM EXTREMITY DOPPLER. MD VERBALIZED UNDERSTANDING. NEW ORDERS TO D/C PICC LINE ONCE ADDITIONAL LINE IS IN PLACE. MIDLINE TO BE INSERTED.
[2018-10-02] MEDS ORDERED: ENOXAPARIN SOD 60 MG/0.6 ML SYRINGE SC ONE (14:45)
--- NOTE | 2018-10-02 15:20 | NUR ---
Midline Nurse aware of need for midline at this time. Per Alexa, she will be in shortly to insert midline line.
--- NOTE | 2018-10-02 15:39 | NUR ---
REPORT REPORT RECEIVED FROM FISH HOUSE WORKER NURSE, PT APPEARS CALM, ON VENTILATOR (SEE INTERVENTIONS), PTS BED IN LOWEST POSITION, OLIVO DRAINING BY GRAVITY, PT RECEIVING IV MEDICATIONS VIA PICC LINE TO THE RIGHT UPPER ARM. RIGHT LOWER AND UPPER ARM ARE SWOLLEN. SEE PHYSICAL ASSESSMENT FOR FURTHER DETAILS. Addendum: 10/02/18 at 1544 by Mala Beckford RN TIME CHANGED TO 0730
--- NOTE | 2018-10-02 16:06 | NUR ---
MIDLINE NURSE AT BEDSIDE TO ATTEMPT MIDLINE AND PERIPHERAL LINE.
[2018-10-02] MEDS: ACYCLOVIR SOD 50MG/ML 500 MG in D5W 5% 100 ML IV SCH (16:20)
[2018-10-02] MEDS: NOREPINEPHRINE 8 MG/250ML KIT 250 ML IV SCH (16:24)
--- NOTE | 2018-10-02 16:42 | NUR ---
Midline Placement: Patient educated on need for midline placement. All risks and benefits explained and all questions and concerns addresses prior to procedure. 18g/10cm midline inserted via left basilic vein using Ultrasound x 1 attempt. Sterile technique utilized. Blood return obtained from single lumen and flushed easily with NS using proper technique. Midline secured with saline lock; biodisc and occlusive dressing applied. Also, 20g 1 3/4 inch IV catheter started to left forearm x 1 attempt per Primary RN request. Primary RN notified of both successful lines. Midline lot #[id number].
--- NOTE | 2018-10-02 17:38 | NUR ---
IV removal PICC LINE DC'd with sterile technique, catheter fully intact. Pressure dressing applied to site. Patient tolerated procedure well. Skin tear noted to right upper arm as arm is swollen and skin noted to be thin. Pictures taken. Wound dressed with petroleum gauze and telfa dressing and secured with kerlix. at bedside aware.
--- NOTE | 2018-10-02 20:00 | NUR ---
ADMITTED WITH WEAKNESS, DEHYDRATION, ALOC, LOW BLOOD SUGAR, BILATERAL PNA, SHINGLES RIGHT UPPER THIGH AND MICHELLE. INTUBATED ON 09/29/2018. NEW TODAY HE IS POSITIVE FOR DVT IN THE RIGHT ARM. ARM IS VERY SWOLLEN. SKIN TEAR IN THE POSTERIOR ASPECT OF THE UPPER ARM. WOUND CONSULT AND DIETARY CONSULT IN. NEW MIDLINE IN THE LEFT UPPER ARM. NEW 20 G IN THE LEFT FOREARM. STARTED ON LOVENOX. SINUS TACHYCARDIA 101. NO ECTOPY. SBP 145. O2 SAT 97% ON FIO2 50%. PEEP IS 8. ORALLY INTUBATED. ORAL NGT WITH GLUCERNA RESTARTED AT 20CC/HR. ABDOMEN SOFT. OLIVO IN PLACE AND DRAINING CLEAR YELLOW LIQUID. HEAVILY SEDATED ON FENTANYL AND VERSED. AN ATTEMPT WAS MADE TODAY TO REDUCE THE FIO2 AND HE BEGAN STACKING HIS BREATHS. RIGHT THIGH AND RIGHT GROIN SHOW MULTIPLE OPEN AREAS FROM THE SHINGLES. SCAB ON HIS LEFT KNEE. SMALL DARK AREA ON THE OUTER ASPECT OF HIS LEFT EAR. PENDING CSF CULTURE. POTASSIUM OF 3.3 WAS REPLACED. NORMAL TEMPERATURE.
--- NOTE | 2018-10-02 22:00 | NUR ---
NSR WITHOUT ECTOPY. SUCTIONED Q 1 HOUR FOR EITHER A SMALL OR LARGE AMOUNT OF CREAMY SECRETIONS. OGT RESIDUAL 20CC. ORAL CARE. ABDOMEN SOFT. RIGHT THIGH OPEN WOUNDS. ADEQUATE URINE OUTPUT. SBP STABLE. 100% O2 SATURATION AT REST.
[2018-10-02] MEDS: ENOXAPARIN SOD 60 MG/0.6 ML SYRINGE SC SCH (22:17)
[2018-10-03] VITALS (94 sets, daily range): BP systolic 101–166; BP diastolic 49–85
--- NOTE | 2018-10-03 | NUR ---
NO FEVER. SINUS TACHYCARDIA 101. B/P STABLE. LUNGS CLEAR. SUCTIONED ETT FOR A SMALL AMOUNT OF CREAMY SECRETIONS. . CLEAR ORAL SECRETIONS. LEFT IV SHOWS NO REDNESS OR SWELLING. THANIA. OLIVO DRAINING CLEAR ANIRUDH LIQUID. NO BM YET.
[2018-10-03] MEDS: MEROPENEM 1GM IVPB 100 ML IV SCH ×3 (02:00→20:00)
[2018-10-03] MEDS: VANCOMYCIN 750 MG in D5W 5% 250 ML IV SCH (02:00)
--- NOTE | 2018-10-03 02:27 | NUR ---
vancomycin trough within normal range. Vancomycin given
[2018-10-03] MEDS: fentaNYL Drip 2500mCg/250mlNS 250 ML IV SCH ×2 (02:34→17:06)
--- NOTE | 2018-10-03 03:23 | NUR ---
AM LABS DRAWN
[2018-10-03 03:48] LABS: Hematocrit 29.2 % (41.0-53.0); Hemoglobin 9.9 g/dL (13.5-17.5); Mean Corpuscular Hemoglobin 31.5 pg (28.0-32.0); Mean Corpuscular Hgb Conc. 34.1 g/dL (32.0-36.0); Mean Corpuscular Volume 92.5 fL (80.0-100.0); Platelet Count (auto) 86 10^3/uL (140-450); Red Blood Cells 3.15 10^6/uL (4.5-5.90); White Blood Cell 20.3 10^3/uL (4.4-10.8)
[2018-10-03 04:05] LABS: Band Neutrophils % (manual) 0; Basophils % (manual) 0 (0.0-2.0); Blast Cells 0; Eosinophils % (manual) 0 (0-7); Lymphocytes % (manual) 0 (10.0-50.0); Metamyelocytes % 0; Myelocytes % 0; Promyelocytes % 0; Reactive Lymphocytes 0
[2018-10-03 04:06] LABS: BUN/Creatinine Ratio 53.8; Calcium 7.3 mg/dL (8.5-10.1); Potassium 3.1 mmol/L (3.5-5.1)
--- NOTE | 2018-10-03 04:30 | NUR ---
CHG BATH. NO FEVER. RIGHT UPPER ARM DRESSING REMOVED. REVEALED AN L SHAPED SKIN TEAR WITH A LARGE AMOUNT OF UNDER ARM ECCHYMOSIS. ENTIRE ARM IS SWOLLEN. XEROFORM GAUZE PLACED AT SITE, 4X4S TO COVER, ABD AND KERLIX WRAP. SITE HAS WEEPED WATERY LIGHT COLOR SEROSANGUINOUS DRNG ALL NIGHT. RIGHT THIGH AND GROIN SHINGLES ARE DRIED WOUNDS. OLIVO DRAINING ADEQUATE AMOUNTS OF CLEAR LIGHT ANIRUDH FLUID. TEMP WAS 97.7. PLACED A SHEET AND BLANKET TO WARM UP THE PATIENT.BORDERLINE FIRST DEGREE AV BLOCK.
[2018-10-03 04:43] LABS: Monocytes % (manual) 1 (0-12)
[2018-10-03] MEDS: InsuLIN REG 1unit/0.01ml Soln (100units/ml) SC SCH ×4 (06:00→17:10)
[2018-10-03] MEDS: ACCU-CHEK COMFORT CURVE STRIP VI SCH ×4 (06:00→17:06)
[2018-10-03] MEDS: LEVOTHYROXINE SODIUM 25 MCG TAB PO SCH (06:43)
[2018-10-03] MEDS: MIDAZOLAM DRIP 50 mg/50mL 50 ML IV SCH ×2 (06:55→11:58)
--- NOTE | 2018-10-03 07:45 | NUR ---
Neurologist at bedside Md aware patient noted to stack breaths when sedation decreased, pt remains deeply sedated, goal is moderately sedated. Md ok with changing versed with propofol if tolerated to obtain moderate sedation as tolerated.
--- NOTE | 2018-10-03 08:00 | NUR ---
No gastric residual noted via og. Tf started at 10ml/hr. Aspiration precautions in place.
[2018-10-03] MEDS: PROPOFOL 100 ML IV SCH ×2 (08:29→17:05)
--- NOTE | 2018-10-03 08:45 | NUR ---
Family updated on pt status Family of DENNYS LOPES JR updated on patient's status and condition. All questions and concerns addressed. and sons verbalized understanding.
[2018-10-03] MEDS: MICAFUNGIN SODIUM 100 MG in SODIUM CHL 0.9% 100 ML IV SCH (09:01)
[2018-10-03] MEDS ORDERED: VANCOMYCIN 1GM/250ML 250 ML IV SCH (10:00)
[2018-10-03] MEDS: SODIUM CHLOR 0.9% PF (SALINE LOCK) 10ML VIAL/SYR IV SCH ×2 (10:34→22:04)
[2018-10-03] MEDS: FAMOTIDINE (10MG/ML) 2ML VL IV SCH ×2 (10:34→22:04)
[2018-10-03] MEDS: ENOXAPARIN SOD 60 MG/0.6 ML SYRINGE SC SCH ×2 (10:34→22:04)
--- NOTE | 2018-10-03 11:36 | NUR ---
Nutrition Follow-up Notes Wt.: 63.6 kg Pt`s intubated sedated with propofol @ 2.9 ml/hr [id number] kcals from fats with RN by bedside. per RN pt is NPO on EN support with Glucerna @ 10 ml.hr as pt had high residues at night. per RN TF just initiated again. pt getting 288 kclas and 14 gm proteins Est. Needs IBW (72 kg): 5817-3999 kcal (25-30 kcal/kgBW), 72-93 gms pro (1.0-1.3 gms/kgBW r/t severe hypoalb). Will continue to monitor pertinent labs and reassess nutrient need prn Labs: BUN 21 H, CA 7.3 L, GLU 215 H, CO2 34 H Skin: Atilio scale 11, high risk pt with multiple skin tears and scabs per RN doc GI: Pt had 2 BM today per employee health nurse. PES: Altered nutrition related lab values r/t acute/chronic medical condition aeb elev BUN A1C, hypercapnia, hyperglycemia, Increased nutrient needs r/t current chronic medical condition aeb pt`s with cancer underwt and NPO intubated with severe hypoalb Will continue to monitor NPO status, EN tolerance, skin status, pertinent labs and weight trend. F/u in 2-3 days. Rec.: 1.) advance diet as medically feasible. 2) consider EN support with Glucerna @ 70 ml./hr per MD approval. 3) consider prostat 1 packet bid. 4) consider MVI.C bid. 5) refer to CDE on DC. 6) continue current plan of care
--- NOTE | 2018-10-03 12:00 | NUR ---
Residual 100ml of gastric residual noted. TF stopped. Aspiration precautions in place.
[2018-10-03] MEDS ORDERED: POTASSIUM EFFERVESENT TAB 25 MEQ GT ONE (12:45)
--- NOTE | 2018-10-03 13:00 | NUR ---
Md at bedside Dr. Duarte updated on patients status. MD aware Tf are not being tolerated. New orders in place. Md spoke to at bedside. Questions and concerns addressed. See new orders.
[2018-10-03] MEDS: POTASSIUM CHL 20MEQ/100ML 100 ML IV SCH ×2 (13:48→20:00)
[2018-10-03] MEDS ORDERED: methylPREDNISolone SOD SUCC 125 MG/2 ML VL IV ONE (14:00)
[2018-10-03] MEDS ORDERED: diphenhdrAMINE HCL 50 MG/1 ML VL IV ONE (14:00)
--- NOTE | 2018-10-03 14:00 | NUR ---
Versed gtt off Propofol has been increased as well as Fent gtt. Patient hr noted high 90's, RR noted to remains 16- mid 20's. Occasional stacking but has lessened with increased of propofol. Will continue to monitor and titrate to achieve moderate sedation and comfort.
[2018-10-03] MEDS ORDERED: IV IMMUNE GLOBULIN(IVIG) 10% 20G/200ML IV ONE (14:30)
[2018-10-03] MEDS ORDERED: METOCLOPRAMIDE HCL 5MG/ml INJ 2ml VIAL IV ONE (15:00)
--- NOTE | 2018-10-03 15:25 | NUR ---
WOUND CARE NOTE: Wound care consult received for skin tear to right upper arm. Reviewed photos from nursing. Patient remains intubated and sedated. No signs or symptoms of pain. Last Atilio score is 12. Patient with skin tear to right upper arm. Current dressing placed by nursing is C/D/I. Discussed with bedside RN, Mala. RECOMMENDATIONS: Nursing to cleanse skin tear with wound cleanser, pat dry, apply THERAHONEY GEL, cover with OPTIFOAM GENTLE, change every other day/PRN saturation; wound care team to continue to follow.
--- NOTE | 2018-10-03 15:26 | NUR ---
IMMUNOGLOBIN STARTED. WILL MONITOR FOR ANY S/S. PT PREMEDICATED ORDERED.
--- NOTE | 2018-10-03 16:00 | NUR ---
ABX NOT ON SCHEDULE PATIENT CURRENTLY HAS MIDLINE TO LEFT AC WITH SEDATION. LEFT FOREARM CURRENTLY INFUSING IMMUNOGLOBULIN. ABX NOT COMPATIBLE. WHEN LINE AVAILABLE ABX TO BE INFUSED. REMAINING K RIDER TO BE PASSED TO NEXT SHIFT.
--- NOTE | 2018-10-03 16:00 | NUR ---
Anabel attempted to bilateral nares but unable to advance past 20cm as there appears to be an obstruction allowing advancement. paged to notify. Per sania Waller to insert dobbhoff via og. Addendum: 10/03/18 at 1901 by Mala Beckford RN Hypoactive gag noted during attempt. Addendum: 10/03/18 at 1933 by Mala Beckford RN Og removed prior to insertion attempts.
[2018-10-03] MEDS: NOREPINEPHRINE 8 MG/250ML KIT 250 ML IV SCH (16:57)
--- NOTE | 2018-10-03 17:00 | NUR ---
ATTEMPTED TO INSERT DOBHOBB Addendum: 10/03/18 at 1852 by Mala Beckford RN AMEND: ATTEMPTED TO INSERT DOBBHOFF VIA OG AND AGAIN UNABLE TO INSERT ADVANCEMENT WAS UNSUCCESSFUL. PER MD TYSON TO REINSERT OG. ATTEMPTED OG BY ADDITIONAL NURSE AND AGAIN UNABLE TO INSERT. NOC NURSE TO ATTEMPT.
[2018-10-03] MEDS: ACYCLOVIR SOD 50MG/ML 500 MG in D5W 5% 100 ML IV SCH ×2 (17:05→18:20)
--- NOTE | 2018-10-03 18:00 | NUR ---
Family updated on pt status Family of DENNYS LOPES JR updated on patient's status and condition. All questions and concerns addressed. verbalized understanding via phone after password obtained.
[2018-10-03] MEDS: VANCOMYCIN 1GM/250ML 250 ML IV SCH (18:33)
[2018-10-03] MEDS ORDERED: POTASSIUM CHL 20MEQ/100ML 100 ML IV ONE (19:48)
--- NOTE | 2018-10-03 20:00 | NUR ---
ADMITTED WITH WEAKNESS, DEHYDRATION, BILATERAL PNA AND MICHELLE. 11/30/2018 INTUBATED AND BROUGHT TO ROOM 107. NO BLINK, GAG OR COUGH. NO ORAL SECRETIONS. NO ETT SECRETIONS. NO NGT, UNABLE TO PLACE ON DAYSHIFT. ABDOMEN SOFT. NO BOWEL SOUNDS. RECTAL TEMPERATURE PROBE. LUNGS CLEAR. FIO2 40%. RR 19. O2 SAT 96%. USING FENTANYL AND DIPRIVAN FOR SEDATION. NSR WITHOUT ECTOPY. BP STABLE. NO FEVER. WILLARD: DRESSING IS DRY AND SECURE. UNDER THIS DRESSING IS A SKIN TEAR FROM WHEN THEY REMOVED THE PICC LINE YESTERDAY. MIDLINE FIONA. PERIPHERAL IV LEFT WRIST AREA. BOTH SHOW NO REDNESS OR NEW SWELLING. THE LEFT ARM HAS1+ PITTING EDEMA. THE RIGHT ARM HAS AT LEAST 2+ PITTING EDEMA. RIGHT ANTERIOR AND LATERAL THIGH/GROIN IS WHERE THE SHINGLES IS. MULTIPLE LARGE CLOSED WOUNDS. OLIVO IN PLACE. IN THE TUBING THE COLOR IS YELLOW, BUT WHEN IT IS ACCUMULATED IN THE OLIVO BAG IT IS A LIGHT ANIRUDH. NO SPONTANEOUS MOVEMENT. BLANKET PLACED. TEMPERATURE IS 97.7. NEW IV BAGS AND TUBINGS CHANGED.
--- NOTE | 2018-10-03 22:00 | NUR ---
REPOSITIONED TO BACK. NO ORAL OR ETT SECRETIONS. LUNGS CLEAR. ABDOMEN SOFT. ARMS CONTINUE TO BE SWOLLEN. RIGHT THIGH WOUNDS ARE CLOSED WITH A DARK RED WOUND BED. RIGHT UPPER ARM DRESSING IS CLEAN AND DRY. NO FEVER. NSR WITHOUT ECTOPY.
[2018-10-04] VITALS (105 sets, daily range): BP systolic 93–169; BP diastolic 45–90
--- NOTE | 2018-10-04 | NUR ---
VSS. RECTAL PROBE TEMP NOT ACCURATE WITH ORAL TEMP. LUNGS CLEAR. THANIA. NOT MOVING EXTREMITIES. ABDOMEN SOFT. KCL RIDER IN. WILLARD WOUND NOT DRAINING. RIGHT THIGH WOUNDS NOT DRAINING. HEELS OFF BED. REPOSITIONED TO LEFT SIDE. BOTH ARMS SWOLLEN. ORAL CARE. SUCTIONED ETT.
[2018-10-04] MEDS: VANCOMYCIN 1GM/250ML 250 ML IV SCH ×3 (02:00→22:22)
[2018-10-04] MEDS: MEROPENEM 1GM IVPB 100 ML IV SCH ×3 (02:00→19:27)
--- NOTE | 2018-10-04 02:00 | NUR ---
IV SHOWS NO REDNESS OR SWELLING. BOTH ARMS REMAIN EDEMETOUS. LUNGS CLEAR. ABDOMEN SOFT. ADEQUATE URINE OUTPUT. NO CHANGE IN WOUNDS. CONTINUES ON FENTANYL AND DIPRIVAN.
--- NOTE | 2018-10-04 04:00 | NUR ---
[facility] FROM THE MIDLINE. CHG BATH. RIGHT UPPER ARM DRESSING REMOVED. LARGE AMOUNT OF WATERY DRNG. AREA CLEANED WITH WOUND CLEANSER. THE LEAKAGE IS COMING FROM THE PREVIOUS PICC LINE INSERTION POINT. IT IS LEAKING LIKE A FAUCET. THERA HONEY APPLIED TO THE SKIN TEAR AND THE INSERTION POINT. COVERED WITH XEROFORM GAUZE, 4X4S AND AN ABD. A FOAM DRESSING WOULD BE SOAKED IN LESS THAN 5 MINUTES. SMALL AREA MID EARLOBE BILATERALLY THAT IS DARK. THE SHINGLES WOUND ON THE POSTERIOR RIGHT HIP IS DRAINING A SMALL AMOUNT. FOAM DRESSING APPLIED. PILLOWS UNDER CALVES TO KEEP THE HEELS OFF THE BED. ATTEMPTED TO INSERT A NUMBER 14 AND A NUMBER 16 FR SALEM SUMP THROUGH EACH NARE AND ORALLY. IT JUST KEPT COILING.
[2018-10-04 04:34] LABS: INR 1.1 (0.9-1.15); Partial Thromboplastin Time 40.4 sec (23.64-32.05)
[2018-10-04 04:37] LABS: Hematocrit 26.8 % (41.0-53.0); Mean Corpuscular Hemoglobin 31.8 pg (28.0-32.0); Mean Corpuscular Hgb Conc. 33.8 g/dL (32.0-36.0); Mean Corpuscular Volume 94.1 fL (80.0-100.0); Platelet Count (auto) 93 10^3/uL (140-450); Red Blood Cells 2.85 10^6/uL (4.5-5.90); White Blood Cell 17.4 10^3/uL (4.4-10.8)
[2018-10-04 04:47] LABS: Band Neutrophils % (manual) 0; Basophils % (manual) 0 (0.0-2.0); Blast Cells 0; Eosinophils % (manual) 0 (0-7); Metamyelocytes % 0; Monocytes % (manual) 0 (0-12); Myelocytes % 0; Promyelocytes % 0; Reactive Lymphocytes 0
[2018-10-04] MEDS: PROPOFOL 100 ML IV SCH ×2 (05:00→22:00)
[2018-10-04] MEDS: fentaNYL Drip 2500mCg/250mlNS 250 ML IV SCH ×2 (05:00→11:22)
[2018-10-04 05:01] LABS: Lymphocytes % (manual) 5 (10.0-50.0)
[2018-10-04] MEDS: InsuLIN REG 1unit/0.01ml Soln (100units/ml) SC SCH ×4 (06:00→17:40)
[2018-10-04] MEDS: ACCU-CHEK COMFORT CURVE STRIP VI SCH ×4 (06:00→17:40)
[2018-10-04] MEDS: LEVOTHYROXINE SODIUM 25 MCG TAB PO SCH (06:45)
--- NOTE | 2018-10-04 06:49 | NUR ---
TOOK THE RECTAL TEMP PROBE OUT
--- NOTE | 2018-10-04 07:30 | NUR ---
REPORT: REPORT RECEIVED FROM MARKETING REPRESENTATIVE RN TO RESUME CARE OF PT.
--- NOTE | 2018-10-04 07:58 | NUR ---
Respiratory note: RETRACTED PT'S ETT 2CM WITHOUT INCIDENT PER CXR READING. ETT IS NOW SECURED AT 24CM AT THE LIP WITH DUSTY. PT IS RECEIVING ADEQUATE VT AND SATS ARE 99%. RN AWARE OF CHANGE.
--- NOTE | 2018-10-04 08:00 | NUR ---
OPEN: ASSESSMENT COMPLETE. SEE NURSING FLOW SHEET FOR UPDATED DETAILS. PT IS NON-VERBAL, INTUBATED AND SEDATED AT TIME. NOT MOVING EXTREMITIES AND NOT ABLE TO FOLLOW COMMANDS AT TIME. ON VENTILATOR WITH 8.0ETTUBE/26 LIP LINE. AC 16,TV 500,40%FI02, PEEP8. NO OGT OR NGT IN PLACE DIFFICULTY PLACING PER MATERIAL COMBINER RN WAS REPORTED. MD MADE AWARE. OLIVO CATHETER IN PLACE DRAINING URINE TO GRAVITY. SCD TO LEFT LOWER EXTREMITY. BLOOD PRESSURE CUFF TO RIGHT LOWER EXTREMITY. MIDLINE IV TO LEFT UPPER ARM RUNNING FENTANYL GTT AT 200MCG/HR AND DIPRIVAN GTT AT 40MCG/KG/MIN. 20G IV TO LEFT FOREARM RUNNING .9NS AT TKO AND ABX SCHEDULED. DIFFUSE AMOUNT OF SCABBED LESIONS TO RIGHT THIGH/GROIN AND CLIFTON WITH DIAGNOSIS OF SHINGLES AT TIME-SEE WOUND CARE INTERVENTION. ALL MONITORS HOOKED UP TO PT FOR CONTINUOUS MONITORING. SHARED POC WITH PT BUT UNABLE TO VERBALIZE UNDERSTANDING AT TIME. CONTINUE CARE FOR SHIFT.
[2018-10-04] MEDS: POTASSIUM CHL 20MEQ/100ML 100 ML IV SCH ×3 (08:21→20:00)
[2018-10-04 08:44] LABS: Alkaline Phosphatase 489 U/L (45-117); Anion Gap 6 (5-15); Aspartate Aminotransferase 27 U/L (15-37); Blood Urea Nitrogen 24 mg/dL (7-18); Carbon Dioxide 33 mmol/L (21-32); Chloride 100 mmol/L (98-107); GFR African American 221 mL/min; GFR Non-African American 183 mL/min; Glucose 283 mg/dL (74-106); Sodium 139 mmol/L (136-145)
[2018-10-04 08:45] LABS: Alanine Aminotransferase 25 U/L (16-61); Albumin 1.2 g/dL (3.4-5.0); Bilirubin, Total 0.4 mg/dL (0.2-1.0); Calcium 7.7 mg/dL (8.5-10.1); Total Protein 5.1 g/dL (6.4-8.2)
[2018-10-04] MEDS: MICAFUNGIN SODIUM 100 MG in SODIUM CHL 0.9% 100 ML IV SCH (08:52)
--- NOTE | 2018-10-04 10:11 | NUR ---
FAMILY: FAMILY IN AT BEDSIDE. UPDATED ON PT STATUS AND AWARE OF CURRENT FINDINGS. ALL QUESTIONS AND CONCERNS ADDRESSED.
[2018-10-04] MEDS: SODIUM CHLOR 0.9% PF (SALINE LOCK) 10ML VIAL/SYR IV SCH ×2 (10:17→22:22)
[2018-10-04] MEDS: FAMOTIDINE (10MG/ML) 2ML VL IV SCH ×2 (11:22→22:22)
[2018-10-04] MEDS: ENOXAPARIN SOD 60 MG/0.6 ML SYRINGE SC SCH ×2 (11:22→22:22)
--- NOTE | 2018-10-04 11:49 | NUR ---
SEDATION: DECREASED FENTANYL GTT TO 150MCG/MIN. PATIENT IS UNAROUSABLE, HYPOACTIVE COUGH AND GAG REFLEX. WILL CONTINUE TO MONITOR.
--- NOTE | 2018-10-04 13:51 | NUR ---
SEDATION: DECREASED FENTANYL GTT TO 125MCG/MIN. PATIENT IS UNAROUSABLE, HYPOACTIVE COUGH AND GAG REFLEX. WILL CONTINUE TO MONITOR.
--- NOTE | 2018-10-04 14:30 | NUR ---
SEDATION: DECREASED FENTANYL GTT TO 100MCG/MIN. PATIENT IS UNAROUSABLE, NO COUGH AND GAG REFLEX. WILL CONTINUE TO MONITOR.
--- NOTE | 2018-10-04 14:35 | NUR ---
MD VISIT: DR. CRUZ IN AT BEDSIDE. UPDATED ON PT STATUS AT TIME AND AWARE OF ALL CURRENT FINDINGS. SPOKE TO IN AT BEDSIDE IN FULL DETAIL AND FULLY UPDATED ON STATUS AT TIME. UPDATED THAT PATIENT IS SCHEDULED FOR CPAP TRIAL TOMORROW AND TO WEAN OFF SEDATION. PLAN TO CARRY OUT ALL ORDERS PLACED. DR. CRUZ ALSO AWARE THAT DOBBHOFF TUBE WAS UNABLE TO BE PLACED YESTERDAY DUE TO DIFFICULTY. AWARE THAT OGT WAS ATTEMPTED AND UNABLE TO INSERT. OK FOR DR. MORRISON FROM ER TO COME TO BEDSIDE AND ATTEMPT TO INSERT NGT.
--- NOTE | 2018-10-04 14:40 | NUR ---
ER/DR. MORRISON: CALLED ER TO REQUEST DR. MORRISON TO COME TO BEDSIDE FOR NGT PLACEMENT VIA [id number]. WILL BE HERE SHORTLY.
[2018-10-04] MEDS ORDERED: FUROSEMIDE 20 MG/2 ML VIAL IV ONE (14:45)
[2018-10-04] MEDS ORDERED: MORPHINE SULF INJ 2 MG/ML SYRINGE 1ML IV PRN (15:00)
--- NOTE | 2018-10-04 15:00 | NUR ---
SEDATION: DECREASED FENTANYL GTT TO 50MCG/MIN. PATIENT IS UNAROUSABLE, NO COUGH AND GAG REFLEX. WILL CONTINUE TO MONITOR.
--- NOTE | 2018-10-04 15:20 | NUR ---
MD VISIT/DR. MORRISON/NGT: DR. MORRISON AT BEDSIDE. AWARE OF DIFFICULTY IN INSERTING NGT/OGT AND DOBBHOFF YESTERDAY. SPOKE TO DR. CRUZ AT BEDSIDE AND REQUESTING MD INSERTION. AFTER USING [id number] AND MOUTH OPENED, MD ABLE TO INSERT 16F NGT TO LEFT NARE. PRIOR TO INSERTION, DID NOTE THAT A SINGLE TOOTH WAS FOUND IN BACK OF THROAT AND REMOVED BY MD WITH FORCEPS. DR. CRUZ AWARE AND FAMILY WILL BE NOTIFIED. AFTER TUBE INSERTED, CONFIRMED PLACEMENT AND XRAY OBTAINED.
[2018-10-04] MEDS: ACYCLOVIR SOD 50MG/ML 500 MG in D5W 5% 100 ML IV SCH (16:00)
--- NOTE | 2018-10-04 16:20 | NUR ---
SEDATION: DECREASED FENTANYL GTT TO 25MCG/HR PER MD ORDERS. PATIENT IS UNAROUSABLE, HYPOACTIVE COUGH AND GAG REFLEX. WILL CONTINUE TO MONITOR. STARTING TO BREATH ABOVE VENTILATOR WITH RATE OF 21-23. NO DISTRESS NOTED.
--- NOTE | 2018-10-04 16:45 | NUR ---
FAMILY: CALLED. UPDATED ON PT STATUS AFTER VERIFICATION OF PASSWORD AND AWARE THAT NGT WAS PLACED. ALL QUESTIONS AND CONCERNS ADDRESSED AFTER VERIFICATION OF PASSWORD. FAMILY MADE AWARE THAT TOOTH WAS FOUND IN BACK OF THROAT AND REMOVED BY DR. MORRISON. PER , MARIA FERNANDA, SHE WOULD LIKE TO KEEP TOOTH. PLACE IN BAG AT BEDSIDE.
--- NOTE | 2018-10-04 17:30 | NUR ---
WOUND CARE/SKIN CARE: WOUND CARE DONE ON RIGHT UPPER ARM FOR SKIN TEAR. CLEANSED WITH WOUND CLEANSER, APPLIED STERILE 4X4 GAUZE, ABD. PAD, AND WRAPPED IN KERLEX. AFTER WOUND CARE DONE, PT GIVEN BED BATH, LINEN CHANGE AND BENEDICT-CARE. TOLERATED WELL.
--- NOTE | 2018-10-04 18:00 | NUR ---
UPDATE: AFTER FENTANYL GTT TURNED DOWN TO 25MCG/HR, PATIENT NOW TACHYPNEIC, DECREASED 02 SATS, NOT FOLLOWING COMMANDS AND APPEARING TO BE IN RESPIRATORY DISTRESS. PAGED RT TO NOTIFY. AFTER SEDATION DECREASED, PATIENT NOT TOLERATING VENTILATOR. INCREASED FENTANYL GTT BACK TO 150MCG/HR AND DIPRIVAN TO 50MCG/KG/MIN. WILL CONTINUE TO MONITOR.
--- NOTE | 2018-10-04 19:16 | NUR ---
MD PAGE: PAGED DR. MARCUM TO NOTIFY THAT PATIENT 02 SATURATION DECREASING TO 76-84 DESPITE SUCTIONING AND REPOSITIONING. NOTIFIED RT AND INCREASED FI02 TO 70%. PER DR. CRUZ, HE WOULD LIKE FENTANYL GTT AT 25MCG/HR AT SET RATE, HOWEVER, ONCE SEDATION DECREASED, PATIENT TACHYPNEIC, MOVING JAW AND ATTEMPTING TO BITE ON ETTUBE, NOT FOLLOWING COMMANDS OR MOVING EXTREMITIES, APPEARS TO BE IN RESP. DISTRESS AND O2 DECREASED.
--- NOTE | 2018-10-04 19:26 | NUR ---
REPORT: REPORT GIVEN TO SANITARY INSPECTOR RN TO RESUME CARE OF PT.
--- NOTE | 2018-10-04 19:39 | NUR ---
MD CALL BACK: DR. MARCUM CALLED BACK. UPDATED ON PT STATUS AND AWARE THAT PATIENT O2 SATS DECREASED AFTER FENTANYL TURNED TO 25MCG/HG. OK TO FOLLOW PROTOCOL AND TITRATE FOR PATIENT RESPONSE.
--- NOTE | 2018-10-04 20:00 | NUR ---
ADMITTED WITH THE DIAGNOSIS OF BILATERAL PNA, SEPSIS, MICHELLE, BLOOD SUGAR 48 AND ALOC. SHINGLE TREATMENT WAS BEFORE COMING HERE. RIGHT THIGH, RIGHT GROIN AND RIGHT LATERAL BACK SHOWS MULTIPLE SHINGLE WOUNDS. 2 ARE MOIST. 1 ) RIGHT GROIN AND 2) BACK/HIP. THE OTHERS ARE DRY AND CRUSTING. THANIA. CLEAR ORAL SECRETIONS. WHITE SECRETIONS FROM THE ETT. LUNGS CLEAR. NOTED CXR IMPROVEMENT. ABDOMEN SOFT. LEFT NARE SALEM SUMP WITH GLUCERNA AT 5CC/HR. SO FAR 10CC IN, 10CC OUT. HYPOACTIVE BOWEL SOUNDS. TEMP 99.6. REMOVED THE BLANKETS AND TURNED THE FAN ON. WILLARD DRESSING OVER A SKIN TEAR AND OLD PICC INSERTION SITE. BILATERAL ARM SWELLING. RADIALS ARE PALPABLE. PEDALS ARE WITH A DOPPLER. BOTH LEGS ARE WARM . CUFF ON RLL. SCD ON LLL. NO MOVEMENT OF EXTREMITIES TO PAINFUL STIMULI.
[2018-10-04] MEDS: Glucerna 1.2 Cal 1Liter BOTTLE GT SCH (20:02)
--- NOTE | 2018-10-04 22:00 | NUR ---
REPOSITIONED. ORAL CARE. MEDS GIVEN. SUCTIONED THE ETT FOR NO SECRETIONS. URINE CLEAR YELLOW. INCREASED THE FENTANYL TO OVERCOME THE RR OF 25.
[2018-10-04] MEDS: ACETAMINOPHEN 650 mg PER 20 mL UD GT PRN (23:29)
--- NOTE | 2018-10-04 23:30 | NUR ---
TYLENOL. FAN OFF.
[2018-10-05] VITALS (93 sets, daily range): BP systolic 110–173; BP diastolic 56–91
--- NOTE | 2018-10-05 | NUR ---
DID NOT LIKE LYING ON HIS LEFT SIDE. HR, BP WENT UP. TYLENOL GIVEN AND IT HAS BROUGHT DOWN THE HR AND BP. LUNGS CLEAR. FIO2 DECREASED TO 60% FROM 65. O2 SAT CURRENTLY IS 95. SBP WENT UP TO 160 AND IS NOW 117. RESIDUAL FROM THE NGT WAS 95CC. SHUT OFF TUBE FEEDING FOR ONE HOUR.
[2018-10-05] MEDS: MEROPENEM 1GM IVPB 100 ML IV SCH ×3 (03:16→19:43)
[2018-10-05] MEDS ORDERED: LORazepam 2MG/ML-1ML VIAL ONE (03:59)
[2018-10-05] MEDS ORDERED: LORazepam 2MG/ML-1ML VIAL IV ONE (04:00)
[2018-10-05 04:21] LABS: Hematocrit 31.7 % (41.0-53.0); Hemoglobin 10.7 g/dL (13.5-17.5); Mean Corpuscular Hemoglobin 31.4 pg (28.0-32.0); Mean Corpuscular Hgb Conc. 33.7 g/dL (32.0-36.0); Mean Corpuscular Volume 93.1 fL (80.0-100.0); Platelet Count (auto) 239 10^3/uL (140-450); Red Blood Cells 3.41 10^6/uL (4.5-5.90); White Blood Cell 18.6 10^3/uL (4.4-10.8)
[2018-10-05 04:30] LABS: BUN/Creatinine Ratio 46.2; Calcium 7.8 mg/dL (8.5-10.1); Potassium 3.9 mmol/L (3.5-5.1)
[2018-10-05 04:32] LABS: Band Neutrophils % (manual) 0; Basophils % (manual) 0 (0.0-2.0); Blast Cells 0; Eosinophils % (manual) 0 (0-7); Metamyelocytes % 0; Myelocytes % 0; Promyelocytes % 0; Reactive Lymphocytes 0
[2018-10-05] MEDS: PROPOFOL 100 ML IV SCH ×4 (05:00→19:08)
[2018-10-05 05:12] LABS: Lymphocytes % (manual) 2 (10.0-50.0); Monocytes % (manual) 6 (0-12)
[2018-10-05] MEDS: fentaNYL Drip 2500mCg/250mlNS 250 ML IV SCH ×2 (05:28→19:42)
[2018-10-05] MEDS: ACCU-CHEK COMFORT CURVE STRIP VI SCH ×4 (06:15→19:07)
[2018-10-05] MEDS: InsuLIN REG 1unit/0.01ml Soln (100units/ml) SC SCH ×4 (06:16→19:43)
[2018-10-05] MEDS: LEVOTHYROXINE SODIUM 25 MCG TAB PO SCH (06:16)
--- NOTE | 2018-10-05 07:10 | NUR ---
OPENING NOTE SHIFT REPORT RECEIVED AND ASSUMED CARE OF PT FROM FABIO WATTS
--- NOTE | 2018-10-05 07:50 | NUR ---
DR. PICKENS AT BEDSIDE WILL NOT ATTEMPT CPAP TRIAL AT THIS TIME D/T NEED FOR MAX SEDATIONS AND HIGH FIO2 SETTINGS. NO NEW ORDERS AT THIS TIME.
--- NOTE | 2018-10-05 08:00 | NUR ---
COOLING MEASURES INITIATED PER LOW GRADE TEMP 99.7 F
[2018-10-05] MEDS: MICAFUNGIN SODIUM 100 MG in SODIUM CHL 0.9% 100 ML IV SCH (08:51)
[2018-10-05] MEDS: ACETAMINOPHEN 650 mg PER 20 mL UD GT PRN ×3 (08:52→19:44)
[2018-10-05] MEDS: ENOXAPARIN SOD 60 MG/0.6 ML SYRINGE SC SCH ×2 (10:10→22:54)
[2018-10-05] MEDS: FAMOTIDINE (10MG/ML) 2ML VL IV SCH ×2 (10:10→22:54)
[2018-10-05] MEDS: SODIUM CHLOR 0.9% PF (SALINE LOCK) 10ML VIAL/SYR IV SCH ×2 (10:11→22:00)
[2018-10-05] MEDS ORDERED: POTASSIUM CHL 20MEQ/100ML 100 ML IV ONE ×2 (11:45→13:19)
[2018-10-05] MEDS ORDERED: FUROSEMIDE 20 MG/2 ML VIAL IV ONE (11:45)
--- NOTE | 2018-10-05 11:45 | NUR ---
DR. CAMPA AT BEDSIDE UPDATED FAMILY ON PT STATUS. FAMILY VERBALIZES UNDERSTANDING OF EDUCATION PROVIDED AND PLAN OF CARE. ORDERS RECEIVED
--- NOTE | 2018-10-05 11:53 | NUR ---
Nutrition Follow-up Notes Wt.: 62.6 kg Pt`s intubated sedated with no family by bedside. per RN pt is NPO on EN support on hold was possible CPAP, per RN pt will not have CPAP. pt was on EN support with with Glucerna @ 10 ml.hr providing 288 kclas and 14 gm proteins Est. Needs IBW (72 kg): 4713-0198 kcal (25-30 kcal/kgBW), 72-93 gms pro (1.0-1.3 gms/kgBW r/t severe hypoalb). Will continue to monitor pertinent labs and reassess nutrient need prn Labs: GLU 227 H, CA 7.8 L, ALB 2.4 L. Skin: Atilio scale 12, high risk pt with multiple skin tears and scabs per RN doc GI: Pt had 2 BM today with gastric drainage of 90 ml per filing and polishing supervisor. PES: Altered nutrition related lab values r/t acute/chronic medical condition aeb elev BUN A1C, hypercapnia, hyperglycemia, Increased nutrient needs r/t current chronic medical condition aeb pt`s with cancer underwt and NPO intubated with severe hypoalb Will continue to monitor NPO status, skin status, pertinent labs and weight trend. F/u in 2-3 days. Rec.: 1.) advance diet as medically feasible. 2) consider EN support with Glucerna @ 70 ml./hr per MD approval. 3) consider prostat 1 packet bid. 4) consider MVI.C bid. 5) refer to CDE on DC. 6) continue current plan of care
[2018-10-05] MEDS: MIDAZOLAM DRIP 50 mg/50mL 50 ML IV SCH ×2 (14:14→19:06)
--- NOTE | 2018-10-05 14:30 | NUR ---
DR. MOYER AT BEDSIDE NO NEW ORDERS AT THIS TIME
--- NOTE | 2018-10-05 15:45 | NUR ---
FEDE WATTS AND RESPIRATORY AT BEDSIDE TO TRANSPORT PT TO CT.
--- NOTE | 2018-10-05 16:00 | NUR ---
1600 ASSESSMENT NOT AVAILABLE DUE TO PT NOT IN UNIT-AT RADIOLOGY FOR CT
--- NOTE | 2018-10-05 16:25 | NUR ---
RT NOTE: PT TAKEN TO TRANSPORT AT [address] PT TRANSPORTED VIA 15L AMBU BAG AND PLACED ONTO CT VENT. PT TRANSPORTED BACK TO ROOM AND PLACED ONTO BEDSIDE VENT. THERE WAS NO VT RETURN, HIG PRESSURE, DROPPING SPO2 AND INCREASED WOB BY PT. UNABLE TO PASS SUCTION CATHETER. CLEAR BREATH SOUNDS TO LEFT LUNG BUT ALMOST NO AIR MOVEMENT TO RIGHT. LAVAGED PT AND THEN WAS ABLE TO PASS SUCTION CATHETER. SECRETIONS WERE MODERATE/THICK/WHITE TO CREAM. THERE WAS A SIGNIFICANT PLUG STUCK TO END OF SUCTION CATHETER. EQUAL BREATHSOUNDS AND CHEST RISE WITH ALL PARAMETERS RETURNING TO NORMAL. WILL CONTINUE TO MONITOR.
--- NOTE | 2018-10-05 17:15 | NUR ---
RECEIVED CALL FROM KEITH IN RADIOLOGY REGARDING CHEST CT RESULTS. PAGED HOSPITALIST REGARDING RESULTS
[2018-10-05] MEDS: ACYCLOVIR SOD 50MG/ML 500 MG in D5W 5% 100 ML IV SCH (17:37)
[2018-10-05] MEDS: Glucerna 1.2 Cal 1Liter BOTTLE GT SCH (17:38)
--- NOTE | 2018-10-05 17:40 | NUR ---
RECEIVED CALL BACK FROM DR. CAMPA. GAVE RESULTS FROM RADIOLOGY. NO NEW ORDERS AT THIS TIME. CONTINUE TO MONITOR.
--- NOTE | 2018-10-05 19:15 | NUR ---
CLOSING NOTE SHIFT REPORT GIVEN AND CARE ENDORSED TO KELLEN WATTS
--- NOTE | 2018-10-05 19:50 | NUR ---
OPEN ASSUMED CARE OF MALE PT ORALLY INTUBATED. PT SEDATED ON VERSED GTT 10 MG/HR, FENTANYL GTT 90 MCG/HR, PROPOFOL GTT 50MCG/KG/MIN. PT NON RESPONSIVE. COUGH GAG POSITIVE. PUPILS REACTIVE. SINUS TACH ON MOLDER WAX BALL. LOW GRADE TEMP 99.9 WITH [address] IN [address]. NGT TO L. NARE WITH GLUCERNA FEEDING INFUSING AT 5 ML/HR. 5 ML RESIDUAL ASPIRATED/RETURNED. FEEDING INCREASED TO 10 ML/HR. WILL CONTINUE TO ADVANCE TOLERATED TO ACHIEVE GOAL. SOME MINIMAL ORAL BLEEDING OBSERVED AND SEVERAL LOOSENED TEETH OBSERVED. GENTLE ORAL CARE PROVIDED. PT WITH KERLIX DRESSING WRAPPED AROUND SKIN TEAR TO R UPPER ARM. PT ON DROPLET ISOLATION FOR SHINGLES LESIONS IN VARIOUS STAGES OF HEALING. SEE SKIN/WOUND ASSESSMENTS. OPTIFOAM DRESSING TO R. GROIN AREA OVER WEEPING LESIONS. OPTIFOAM GENTLE SACRAL DRESSINGS X [address] ONE COVERING MOIST LESIONS TO SACRAL AREA. THE OTHER DRESSING COVERING SML SKIN TEAR TO INTRAGLUTEAL FOLD. OLIVO TO GRAVITY DRAINING CLEAR LIGHT ANIRUDH URINE. SCD TO L. LEG, BP CUFF TO R. LEG. BED IN LOWEST LOCKED POSITION. HOB ELEVATED 45 DEGREES DURING FEEDING. NO INDICATION OF PAIN OBSERVED. PT IN FULL VIEW OF RN STATION. WILL CONTINUE TO MONITOR.
--- NOTE | 2018-10-05 20:30 | NUR ---
GI PT HAD LARGE LOOSE BROWN STOOL . PT CLEANSED. REPOSITIONED FOR COMFORT.
[2018-10-05] MEDS: VANCOMYCIN 1GM/250ML 250 ML IV SCH (22:53)
[2018-10-06] VITALS (106 sets, daily range): BP systolic 91–171; BP diastolic 52–94
[2018-10-06] MEDS: PROPOFOL 100 ML IV SCH ×5 (00:28→22:11)
[2018-10-06] MEDS: ACCU-CHEK COMFORT CURVE STRIP VI SCH ×4 (00:29→18:18)
[2018-10-06] MEDS: MIDAZOLAM DRIP 50 mg/50mL 50 ML IV SCH ×5 (00:29→22:23)
[2018-10-06] MEDS: InsuLIN REG 1unit/0.01ml Soln (100units/ml) SC SCH ×4 (00:30→18:28)
--- NOTE | 2018-10-06 00:30 | NUR ---
RR/SEDATION PT IS OVERBREATHING VENT RR 30'S. DOUBLE STACKING BREATHS CONTINUOUSLY. PT DEEPLY SEDATED. INCREASE SEDATION TO DECREASE RR. SEE IV SPREADSHEET.
--- NOTE | 2018-10-06 02:30 | NUR ---
GI PT HAD LARGE PASTY BROWN STOOL. PT CLEANSED. REPOSITIONED FOR COMFORT.
--- NOTE | 2018-10-06 03:00 | NUR ---
Patient bathe/linen change Patient given complete bath. Skin integrity assessed for any changes. Linens changed. Patient repositioned for comfort. Addendum: 10/07/18 at 0314 by Maranda Veliz RN WRONG DATE.
[2018-10-06] MEDS: MEROPENEM 1GM IVPB 100 ML IV SCH ×3 (03:45→19:01)
[2018-10-06 04:09] LABS: Hematocrit 31.1 % (41.0-53.0); Hemoglobin 10.6 g/dL (13.5-17.5); Mean Corpuscular Hemoglobin 31.5 pg (28.0-32.0); Mean Corpuscular Hgb Conc. 34.2 g/dL (32.0-36.0); Mean Corpuscular Volume 92.3 fL (80.0-100.0); Platelet Count (auto) 294 10^3/uL (140-450); Red Blood Cells 3.37 10^6/uL (4.5-5.90); Red Cell Distribution Width 17.7 % (11.8-14.3); White Blood Cell 20.4 10^3/uL (4.4-10.8)
[2018-10-06 04:25] LABS: Calcium 7.5 mg/dL (8.5-10.1); Potassium 3.3 mmol/L (3.5-5.1)
[2018-10-06 04:27] LABS: BUN/Creatinine Ratio 44.7
[2018-10-06 04:28] LABS: Basophils % (manual) 0 (0.0-2.0); Blast Cells 0; Eosinophils % (manual) 0 (0-7); Metamyelocytes % 0; Myelocytes % 0; Promyelocytes % 0; Reactive Lymphocytes 0
[2018-10-06 04:46] LABS: Band Neutrophils % (manual) 4; Lymphocytes % (manual) 1 (10.0-50.0); Monocytes % (manual) 9 (0-12)
[2018-10-06] MEDS: LEVOTHYROXINE SODIUM 25 MCG TAB PO SCH (06:36)
--- NOTE | 2018-10-06 07:10 | NUR ---
OPENING NOTE REPORT GIVE BACK RECEIVED AND ASSUMED CARE OF PT FROM KELLEN WATTS
--- NOTE | 2018-10-06 08:50 | NUR ---
BM SMALL SMEAR LIGHT BROWN. CLEANED WITH SOAP AND WATER AND LINEN CHANGE
--- NOTE | 2018-10-06 09:15 | NUR ---
CALL TO DR. STEVE REGARDING LABS AND CT CHEST RESULTS.
[2018-10-06] MEDS: MICAFUNGIN SODIUM 100 MG in SODIUM CHL 0.9% 100 ML IV SCH (09:24)
--- NOTE | 2018-10-06 09:31 | NUR ---
CALL BACK FROM DR. STEVE ORDERS RECEIVED
[2018-10-06] MEDS: POTASSIUM CHL 20MEQ/100ML 100 ML IV SCH ×2 (09:51→11:55)
[2018-10-06] MEDS: FAMOTIDINE (10MG/ML) 2ML VL IV SCH ×2 (10:22→22:12)
[2018-10-06] MEDS: SODIUM CHLOR 0.9% PF (SALINE LOCK) 10ML VIAL/SYR IV SCH ×2 (10:23→22:00)
[2018-10-06] MEDS: LINEZOLID 600MG/300ML 300 ML IV SCH ×2 (12:19→22:11)
--- NOTE | 2018-10-06 13:15 | NUR ---
DR. Ana DALLAS AT BEDSIDE SPOKE TO AT BEDSIDE AND UPDATED ON PT STATUS. VERBALIZES UNDERSTANDING OF EDUCATION PROVIDED AND PLAN. ORDERS RECEIVED
[2018-10-06] MEDS: methylPREDNISolone SOD SUCC 40 MG/ML VL IV SCH ×2 (14:03→22:12)
--- NOTE | 2018-10-06 14:10 | NUR ---
BM AND DRESSING CHANGE TO RIGHT ARM MODERATE SOFT BROWN BM AND DRESSING CHANGE TO RIGHT ARM WITH WOUND PEOPLESOFT FSCM DEVELOPER, THERAHONEY, GAUZE, ABD PAD, AND GAUZE WRAP.
[2018-10-06] MEDS: ENOXAPARIN SOD 60 MG/0.6 ML SYRINGE SC SCH ×2 (14:24→22:12)
[2018-10-06] MEDS: fentaNYL Drip 2500mCg/250mlNS 250 ML IV SCH (15:43)
--- NOTE | 2018-10-06 16:00 | NUR ---
DR. PICKENS AT BEDSIDE NO NEW ORDERS AT THIS TIME
--- NOTE | 2018-10-06 16:10 | NUR ---
DR. PICKENS DOES NOT WANT CENTRAL LINE OR PICC LINE PLACED AT THIS TIME
[2018-10-06] MEDS: ACYCLOVIR SOD 50MG/ML 500 MG in D5W 5% 100 ML IV SCH (16:16)
--- NOTE | 2018-10-06 18:00 | NUR ---
PT HAS CLOSED BLISTER TO LEFT ARM AND REDNESS NEAR IV SITE. IV SITE FLUSHES WELL BUT NO BLOOD RETURN. WILL MONITOR AND POSSIBLY TRY TO START NEW LINE
[2018-10-06] MEDS: ALBUTEROL SULF 2.5 MG/0.5ML(0.5%) NEB SOLN NEB SCH (19:10)
[2018-10-06] MEDS: IPRATROPIUM BROM 0.5 MG/2.5ML INH SOL NEB SCH (19:10)
--- NOTE | 2018-10-06 19:15 | NUR ---
CLOSING NOTE REPORT GIVE BACK AND CARE ENDORSED TO KELLEN WATTS
--- NOTE | 2018-10-06 20:00 | NUR ---
OPEN ASSUMED CARE OF MALE PT ORALLY INTUBATED. PT SEDATED ON VERSED GTT 15 MG/HR, FENTANYL GTT 200 MCG/HR, PROPOFOL GTT 50MCG/KG/MIN. PT NON RESPONSIVE. COUGH GAG POSITIVE. PUPILS REACTIVE. SINUS TACH ON WREATH AND GARLAND MAKER HAND. PT TEMP 100.0 WITH COOLING MEASURES PLACED. NGT TO L. NARE. FEEDING ON HOLD DUE TO HIGH RESIDUALS ON DAY SHIFT. PT WITH 125 OF BILE ASPIRATED/RETURNED. SOME MINIMAL ORAL BLEEDING OBSERVED AND SEVERAL LOOSENED TEETH OBSERVED. GENTLE ORAL CARE PROVIDED. PT WITH KERLIX DRESSING WRAPPED AROUND SKIN TEAR TO R UPPER ARM. PT ON DROPLET ISOLATION FOR SHINGLES LESIONS IN VARIOUS STAGES OF HEALING. SEE SKIN/WOUND ASSESSMENTS. OPTIFOAM DRESSING TO R. GROIN AREA OVER WEEPING LESIONS. OPTIFOAM GENTLE SACRAL DRESSINGS X [address] ONE COVERING MOIST LESIONS TO SACRAL AREA. THE OTHER DRESSING COVERING SML SKIN TEAR TO INTRAGLUTEAL FOLD. OLIVO TO GRAVITY DRAINING DARK ANIRUDH URINE. SCD TO L. LEG, BP CUFF TO R. LEG. BED IN LOWEST LOCKED POSITION. HOB ELEVATED 30 DEGREES. NO INDICATION OF PAIN OBSERVED. PT IN FULL VIEW OF RN STATION. WILL CONTINUE TO MONITOR.
--- NOTE | 2018-10-06 20:04 | NUR ---
PT ASYNCHRONOUS WITH VENT ON AC 20, 400, +5. RR MAINTAINED BETWEEN 25-30/MIN. PER DR. DALLAS VIA TELEPHONE PT PLACED ON PC P 16, RR 22, +5, I-TIME 0.9, AND AN FIO2 OF 60%. PT APPEARS MUCH MORE COMFORTABLE. WILL DRAW FOLLOW UP ABG.
[2018-10-07] VITALS (106 sets, daily range): BP systolic 97–168; BP diastolic 48–92
[2018-10-07] MEDS: ALBUTEROL SULF 2.5 MG/0.5ML(0.5%) NEB SOLN NEB SCH ×4 (00:12→18:42)
[2018-10-07] MEDS: IPRATROPIUM BROM 0.5 MG/2.5ML INH SOL NEB SCH ×4 (00:12→18:42)
[2018-10-07] MEDS: InsuLIN REG 1unit/0.01ml Soln (100units/ml) SC SCH ×5 (00:23→23:52)
[2018-10-07] MEDS: ACCU-CHEK COMFORT CURVE STRIP VI SCH ×5 (00:23→23:52)
[2018-10-07] MEDS: MIDAZOLAM DRIP 50 mg/50mL 50 ML IV SCH ×2 (02:51→06:40)
[2018-10-07] MEDS: MEROPENEM 1GM IVPB 100 ML IV SCH ×3 (02:51→18:43)
--- NOTE | 2018-10-07 03:00 | NUR ---
Patient bathe/linen change Patient given complete bath. Skin integrity assessed for any changes. Linens changed. Patient repositioned for comfort.
--- NOTE | 2018-10-07 04:00 | NUR ---
FAMILY CALL PT CALLED UNIT FOR UPDATE ON PT CONDITION. AFTER PASSWORD FOR PHONE GIVEN. UPDATE PROVIDED. ALL QUESTIONS AND CONCERNS ADDRESSED.
[2018-10-07 04:33] LABS: Basophils # (auto) 0 uL; Eosinophils # (auto) 0 uL; Hematocrit 29.6 % (41.0-53.0); Lymphocytes # (auto) 0.4 uL; Lymphocytes % (auto) 1.9 % (10.0-50.0); Mean Corpuscular Hemoglobin 31.9 pg (28.0-32.0); Mean Corpuscular Hgb Conc. 33.7 g/dL (32.0-36.0); Mean Corpuscular Volume 94.6 fL (80.0-100.0); Monocytes # (auto) 0.5 uL; Monocytes % (auto) 2.7 % (0.0-12.0); Neutrophils # (auto) 18.1 uL; Neutrophils % (auto) 95.4 % (37.0-80.0); Platelet Count (auto) 292 10^3/uL (140-450); Red Blood Cells 3.13 10^6/uL (4.5-5.90); Red Cell Distribution Width 17.8 % (11.8-14.3)
[2018-10-07 04:45] LABS: Potassium 3.8 mmol/L (3.5-5.1)
[2018-10-07 04:52] LABS: Albumin 1.2 g/dL (3.4-5.0); BUN/Creatinine Ratio 61.1; Bilirubin, Total 0.5 mg/dL (0.2-1.0); Calcium 7.5 mg/dL (8.5-10.1); Total Protein 5.1 g/dL (6.4-8.2)
[2018-10-07] MEDS: methylPREDNISolone SOD SUCC 40 MG/ML VL IV SCH ×3 (06:19→21:31)
[2018-10-07] MEDS: LEVOTHYROXINE SODIUM 25 MCG TAB PO SCH (06:20)
--- NOTE | 2018-10-07 07:10 | NUR ---
OPENING NOTE REPORT GET BACK AND ASSUMED CARE OF PT FROM KELLEN WATTS
--- NOTE | 2018-10-07 08:30 | NUR ---
DR. STEVE AT BEDSIDE ORDERS RECEIVED
[2018-10-07] MEDS: MICAFUNGIN SODIUM 100 MG in SODIUM CHL 0.9% 100 ML IV SCH (08:32)
[2018-10-07] MEDS: PROPOFOL 100 ML IV SCH ×3 (08:32→23:57)
--- NOTE | 2018-10-07 08:40 | NUR ---
TEMP NOT ABLE TO OBTAIN ORAL OR AXILLARY TEMP. PLACED RECTAL TEMPERATURE PROB. TEMP AT THIS TIME 93.0 F. EMMA GODDARDER PLACED ON PT. WILL CONTINUE TO MONITOR
--- NOTE | 2018-10-07 09:40 | NUR ---
CALL TO REGARDING CONSENT FOR CENTRAL LINE AND PT STATUS. ADVISED AND FAMILY TO SEE PT. ADVISED THAT SHE WILL BE COMING IN ABOUT 30 MIN AND WOULD LIKE TO SPEAK TO DOCTOR. WILL CONTACT PHYSICIAN.
[2018-10-07] MEDS ORDERED: FUROSEMIDE 40 MG/4 ML VIAL IV ONE (09:45)
[2018-10-07] MEDS ORDERED: ALBUMIN 25% 100 ML IV ONE ×3 (09:45→17:52)
[2018-10-07] MEDS: ENOXAPARIN SOD 60 MG/0.6 ML SYRINGE SC SCH ×2 (10:00→21:31)
[2018-10-07] MEDS: LINEZOLID 600MG/300ML 300 ML IV SCH ×2 (10:05→21:31)
[2018-10-07] MEDS: FAMOTIDINE (10MG/ML) 2ML VL IV SCH ×2 (10:05→21:31)
[2018-10-07] MEDS: SODIUM CHLOR 0.9% PF (SALINE LOCK) 10ML VIAL/SYR IV SCH ×2 (10:06→21:31)
--- NOTE | 2018-10-07 10:15 | NUR ---
DR. DALLAS AT BEDSIDE VENT CHANGES AND ORDERS RECEIVED. RT NOTIFIED.
--- NOTE | 2018-10-07 10:18 | NUR ---
Respiratory note: PEEP INCREASED TO [address] AND FAMILY AT BEDSIDE.
--- NOTE | 2018-10-07 10:20 | NUR ---
AT BEDSIDE CONSENT FOR CENTRAL LINE SIGNED AND SPOKE TO DR. DALLAS. VERBALIZES UNDERSTANDING OF PLAN
--- NOTE | 2018-10-07 12:30 | NUR ---
COOLING MEASURES DONE FOR ELEVATED TEMP
--- NOTE | 2018-10-07 14:20 | NUR ---
DR. MORRISON AT BEDSIDE TO PLACE CENTRAL LINE
--- NOTE | 2018-10-07 15:00 | NUR ---
DR. PICKENS AT BEDSIDE SPOKE WITH AND UPDATED ON PT STATUS
[2018-10-07] MEDS: fentaNYL Drip 2500mCg/250mlNS 250 ML IV SCH (15:41)
--- NOTE | 2018-10-07 16:20 | NUR ---
DR. MORRISON AT BEDSIDE FOR PULL BACK/RE-INSERTION OF CENTRAL LINE DUE TO COILING ON CXR. RADIOLOGY AT BEDSIDE DURING PROCEDURE. DR. MORRISON CONFIRMED PLACEMENT OF CENTRAL LINE. STATES OK TO USE
[2018-10-07] MEDS: ACYCLOVIR SOD 50MG/ML 500 MG in D5W 5% 100 ML IV SCH (16:26)
[2018-10-07] MEDS: ALBUMIN 25% 100 ML IV SCH ×2 (16:59→17:57)
[2018-10-07 17:33] LABS: Hemoglobin 10.8 g/dL (13.5-17.5)
[2018-10-07 17:34] LABS: Hematocrit 32.8 % (41.0-53.0); Mean Corpuscular Hemoglobin 30.4 pg (28.0-32.0); Mean Corpuscular Hgb Conc. 32.8 g/dL (32.0-36.0); Mean Corpuscular Volume 92.8 fL (80.0-100.0); Platelet Count (auto) 451 10^3/uL (140-450); Red Blood Cells 3.54 10^6/uL (4.5-5.90); Red Cell Distribution Width 17.9 % (11.8-14.3); White Blood Cell 23.6 10^3/uL (4.4-10.8)
[2018-10-07 17:37] LABS: Basophils % (manual) 0 (0.0-2.0); Blast Cells 0; Eosinophils % (manual) 0 (0-7); Myelocytes % 0; Promyelocytes % 0; Reactive Lymphocytes 0
[2018-10-07 17:50] LABS: Calcium 8.1 mg/dL (8.5-10.1)
[2018-10-07 17:52] LABS: BUN/Creatinine Ratio 45.8
--- NOTE | 2018-10-07 18:00 | NUR ---
RIGHT ARM DRESSING CHANGE CLEANSED WITH WOUND LIFE INSURANCE AGENT, COVERED WITH XEROFORM, GAUZE, ABD PADS, AND GAUZE WRAP.
--- NOTE | 2018-10-07 18:00 | NUR ---
RESTARTED DIPRIVAN DUE TO ELEVATED BP AND ELEVATED HR
[2018-10-07 18:02] LABS: Lactic Acid w/Reflex 2.1 mmol/L (0.4-2.0)
[2018-10-07] MEDS ORDERED: InsuLIN REG 1unit/0.01ml Soln (100units/ml) ONE (18:38)
--- NOTE | 2018-10-07 19:05 | NUR ---
CLOSING NOTE SHIFT REPORT GIVEN AND CARE ENDORSED TO AMANDA WATTS
--- NOTE | 2018-10-07 19:30 | NUR ---
Opening Shift Note Assumed care of patient, intubated and sedated. Breathing on ETT and PCV, No S/S of distress/SOB or pain. Noted ETT at 20cms at lips, CXR shown ETT tip at 6.3cms from marlon, will check with charting and notified RT. NG on left, clamped, will check residual and resume TF. TLC at right IJ, mild oozing at tip, will continuw monitor and re-dressing later after stopped. Mid-line at left upper arm, CDI site, flushed well. Jane's catheter hung to gravity with clear light vianey urine. SCD to left leg, will alternate to right leg later. Bed in low position, call light within reach, all alarms are audible, fall and safety precaution in place. No family at bedside at this time, will continue to monitor for changes Q1hr and PRN.
--- NOTE | 2018-10-07 20:00 | NUR ---
Condition update/ resume TF Pt's condition; light sedation. mild asynchrony breathing with ventilator after nursing care, will continue to monitor and adjust sedation accordingly, see IV spreadsheet for details. HR and BP slightly high due to activities, will continue monitor v/s at rest and BP might lower after increased sedation. Mouth care; blood clots in between teeth, will do gently mouth care through out the shift to remove clots and careful of loosen teeth. TF; NG in positive placement. Dark green bile 40ml from NG discarded. Resume Glucerna 1.2 as order, started at 10ml/hr, will continue to monitor residual and adjust accordingly.
[2018-10-07 20:41] LABS: Band Neutrophils % (manual) 3; Lymphocytes % (manual) 1 (10.0-50.0); Metamyelocytes % 1; Monocytes % (manual) 3 (0-12)
--- NOTE | 2018-10-07 22:00 | NUR ---
Condition update/ Elimination Pt's condition and v/s stable. Still have occasional asynchrony breathing, RR in 20's. BP and HR slightly high, see v/s sheet for details, adjusted Propofol to help with asynchrony, see IV spreadsheet. Pt passed small amount of soft brown stool. Patsy rectal cleaned, z-guard applied. Optifoam at sacrum intact and dry, will change at AM care. Re-position Pt to prevent pressure ulcer. Continue care.
[2018-10-08] VITALS (105 sets, daily range): BP systolic 109–177; BP diastolic 57–95
--- NOTE | 2018-10-08 | NUR ---
Condition update/ Oozing at TLC Pt's condition and v/s stable, still HR tachycardia/ SBP 160's with activities/ occasional asynchrony, titrated sedation slowly. TF; residual+ bile 25ml after 50ml of TF intake. Increased TF from 10 to 20ml/hr, will continue to monitor. TLC site re-oozing again, estimated 5-10ml BL. Opened dressing to check the site, oozing noted from the cannula to skin area. Stopped bleeding by compressed at the site for 15 mins. The oozing stopped. Re-dressing the site with sterile technique. Place a bag of 500ml IV with pillow case to pressure the site. Continue to monitor.
[2018-10-08] MEDS: IPRATROPIUM BROM 0.5 MG/2.5ML INH SOL NEB SCH ×4 (00:10→18:12)
[2018-10-08] MEDS: ALBUTEROL SULF 2.5 MG/0.5ML(0.5%) NEB SOLN NEB SCH ×4 (00:10→18:12)
--- NOTE | 2018-10-08 03:00 | NUR ---
Condition update/ Patient bathe/linen change V/S and condition stable. Breathing synchronized better with Versed IV added, see V/S sheet and IV spreadsheet for detail. TLC site; noted oozing again, will re-dressing and put pressure dressing. Patient given complete bath with CHG wipes. Skin integrity assessed for any changes. Pt passed a smear amount of brown stool, Patsy rectal cleaned and z-guard applied. Complete linens changed. Shingle wounds at right buttock and right groin d/s done. Right buttock with moderate drainages, yellowish, re-covered with Optifoam. Right groin, minimal drainage, yellowish, re-covered with Optifoam. Sacrum intact, hyperpigmentation, z-guard applied, changed Optifoam. Switch SCD to another leg done. Passive ROM and lift extremities against gravity done.
[2018-10-08] MEDS: MEROPENEM 1GM IVPB 100 ML IV SCH ×3 (03:03→18:03)
[2018-10-08] MEDS: fentaNYL Drip 2500mCg/250mlNS 250 ML IV SCH ×2 (03:04→15:05)
--- NOTE | 2018-10-08 04:00 | NUR ---
Tube feeding 04.00am Residual at 20ml/hr = 70ml, bile and curd, returned, decreased TF to 10ml/hr. Continue monitoring. 06.00am Residual 40ml, digested curd, returned to Pt, continue TF at 10ml/hr. Continue monitor and will endorsed to day shift.
[2018-10-08 04:05] LABS: Hematocrit 25.3 % (41.0-53.0); Hemoglobin 8.6 g/dL (13.5-17.5); Mean Corpuscular Hemoglobin 31.6 pg (28.0-32.0); Mean Corpuscular Hgb Conc. 34.2 g/dL (32.0-36.0); Mean Corpuscular Volume 92.6 fL (80.0-100.0); Platelet Count (auto) 403 10^3/uL (140-450); Red Blood Cells 2.73 10^6/uL (4.5-5.90); Red Cell Distribution Width 17.5 % (11.8-14.3); White Blood Cell 21.1 10^3/uL (4.4-10.8)
[2018-10-08 04:19] LABS: Basophils % (manual) 0 (0.0-2.0); Blast Cells 0; Eosinophils % (manual) 0 (0-7); Metamyelocytes % 0; Myelocytes % 0; Promyelocytes % 0; Reactive Lymphocytes 0
[2018-10-08 04:44] LABS: Albumin 2.2 g/dL (3.4-5.0); Calcium 7.9 mg/dL (8.5-10.1); Magnesium 2.2 mg/dL (1.6-2.6); Potassium 3.7 mmol/L (3.5-5.1)
[2018-10-08 04:49] LABS: Bilirubin, Total 0.5 mg/dL (0.2-1.0); Total Protein 5.5 g/dL (6.4-8.2)
--- NOTE | 2018-10-08 05:20 | NUR ---
TLC oozing/ re-D/S done Re-dressing TLC site. Manually compressed for 5mins, re-dressing with sterile technique and put the pressure dressing with foam tape, will continue to monitor and endorsed to day shift.
[2018-10-08] MEDS: PROPOFOL 100 ML IV SCH ×4 (06:17→23:55)
[2018-10-08] MEDS: LEVOTHYROXINE SODIUM 25 MCG TAB PO SCH (06:17)
[2018-10-08] MEDS: methylPREDNISolone SOD SUCC 40 MG/ML VL IV SCH ×3 (06:17→21:39)
[2018-10-08] MEDS: ACCU-CHEK COMFORT CURVE STRIP VI SCH ×4 (06:34→23:39)
[2018-10-08] MEDS: InsuLIN REG 1unit/0.01ml Soln (100units/ml) SC SCH ×4 (06:34→23:40)
[2018-10-08 06:35] LABS: Band Neutrophils % (manual) 4; Lymphocytes % (manual) 5 (10.0-50.0); Monocytes % (manual) 5 (0-12)
--- NOTE | 2018-10-08 08:00 | NUR ---
ASSESSMENT pt. on PC ventilation w/ 55% FIO2-O2 sat. at 96%, Right IJ TLC w/ pressure dressing on-no signs of oozing seen, BUE edema noted- weeping to RUE seen-dressing changed, oral care done and pt. tolerated procedures well, assessment done ( pls. see flowsheet ), comfortable in bed, no signs of pain/distress seen, will monitor pt.
[2018-10-08] MEDS: MICAFUNGIN SODIUM 100 MG in SODIUM CHL 0.9% 100 ML IV SCH (09:12)
--- NOTE | 2018-10-08 09:30 | NUR ---
Family updated on pt status Family of DENNYS LOPES JR updated on patient's status and condition. All questions and concerns addressed. verbalized understanding.
[2018-10-08] MEDS: ENOXAPARIN SOD 60 MG/0.6 ML SYRINGE SC SCH ×2 (10:37→21:40)
[2018-10-08] MEDS: LINEZOLID 600MG/300ML 300 ML IV SCH ×2 (10:37→21:40)
[2018-10-08] MEDS: FAMOTIDINE (10MG/ML) 2ML VL IV SCH ×2 (10:37→21:40)
[2018-10-08] MEDS: SODIUM CHLOR 0.9% PF (SALINE LOCK) 10ML VIAL/SYR IV SCH ×2 (10:37→21:40)
[2018-10-08] MEDS ORDERED: FUROSEMIDE 40 MG/4 ML VIAL IV ONE (11:00)
--- NOTE | 2018-10-08 11:36 | NUR ---
Respiratory note: VENTILATOR CHANGES MADE PER DR. DALLAS. PATIENT IS NOW ON PCV RR 22, INSP P. 16, PEEP +8, FIO2 50%. PATIENT IS TOLERATING CHANGES WELL. STEFANIE MANDUJANO IS AWARE OF CHANGES. WILL CONTINUE TO MONITOR PATIENT.
[2018-10-08] MEDS ORDERED: PPN PER PHARMACY 0 ML IV SCH (12:00)
--- NOTE | 2018-10-08 12:30 | NUR ---
Provider/Hospitalist at bedside Dr. Duarte made rounds and saw pt. and made some orders, MD updated family at bedside, all questions addressed.
[2018-10-08] MEDS: MIDAZOLAM DRIP 50 mg/50mL 50 ML IV SCH (14:48)
--- NOTE | 2018-10-08 15:00 | NUR ---
OPENING NOTES ASSUMED CARE, STILL ON VENT AND SEDATION WITH PROPOFOL, VERSED AND FENTANYL INFUSING IN THE RIGHT IJ, SEE SPREADSHEET FOR TITRATION, NGT INFUSING GLUCERNA FEEDING @ 10ML/HR, OLIVO CATHETER DRAINING TO A CLEAR URINE, BLISTERS ON BOTH ARMS AND SHINGLES ON RIGHT THIGH AND BUTTOCKS NOTED. BED IN LOWEST POSITION WITH SIDE RAILS UP, BED ALARM ON. WILL CONTINUE CARE.
[2018-10-08] MEDS: ACYCLOVIR SOD 50MG/ML 500 MG in D5W 5% 100 ML IV SCH (16:40)
[2018-10-08] MEDS ORDERED: PPN PER PHARMACY IV NR ×11 (20:00)
--- NOTE | 2018-10-08 20:00 | NUR ---
NO RESIDUALS NOTED PER NGT, INCREASED RATE TO 15ML/HR.
--- NOTE | 2018-10-08 21:31 | NUR ---
RECEIVED A CALL FROM , BRANDI, UPDATED ON PT'S STATUS AFTER OBTAINING A PASSWORD.
--- NOTE | 2018-10-08 23:40 | NUR ---
NGT RESIDUALS 6OML, HELD FEEDING TEMP.
[2018-10-09] VITALS (103 sets, daily range): BP systolic 111–193; BP diastolic 53–95
[2018-10-09] MEDS ORDERED: DEXTROSE (50%) 50ML SYRG IV SCH
[2018-10-09] MEDS: IPRATROPIUM BROM 0.5 MG/2.5ML INH SOL NEB SCH ×4 (00:09→18:13)
[2018-10-09] MEDS: ALBUTEROL SULF 2.5 MG/0.5ML(0.5%) NEB SOLN NEB SCH ×4 (00:09→18:12)
--- NOTE | 2018-10-09 03:00 | NUR ---
RECHECKED FOR RESIDUALS, NONE NOTED, RESUMED NGT FEEDING WITH GLUCERNA @ 10 ML/HR.
[2018-10-09] MEDS: MEROPENEM 1GM IVPB 100 ML IV SCH ×3 (03:08→18:08)
[2018-10-09] MEDS: fentaNYL Drip 2500mCg/250mlNS 250 ML IV SCH (03:30)
--- NOTE | 2018-10-09 03:50 | NUR ---
Family updated on pt status of DENNYS LOPES JR called and updated on patient's status and condition after giving a password. All questions and concerns addressed. verbalized understanding.
--- NOTE | 2018-10-09 04:00 | NUR ---
MORNING CARE/ELIMINATION HAD MODERATE AMOUNT OF SOFT, BROWN STOOLS. COMPLETE BED BATH WITH CHG DONE, OPTIFOAM IN THE RIGHT GROIN AND SACRAL AREA CHANGED. REPOSITIONED FOR COMFORT.
[2018-10-09 04:11] LABS: Hemoglobin 8.5 g/dL (13.5-17.5); Mean Corpuscular Hemoglobin 31.4 pg (28.0-32.0); Mean Corpuscular Hgb Conc. 33.8 g/dL (32.0-36.0); Mean Corpuscular Volume 92.8 fL (80.0-100.0); Platelet Count (auto) 472 10^3/uL (140-450); Red Cell Distribution Width 17.9 % (11.8-14.3); White Blood Cell 16.4 10^3/uL (4.4-10.8)
--- NOTE | 2018-10-09 04:11 | NUR ---
CONSENT FOR CT ANGIO CHEST WITH CONTRAST SECURED FROM THE OVER THE PHONE, WITNESSED TOGETHER WITH JATINDER WATTS.
[2018-10-09 04:17] LABS: Basophils % (manual) 0 (0.0-2.0); Blast Cells 0; Eosinophils % (manual) 0 (0-7); Metamyelocytes % 0; Myelocytes % 0; Promyelocytes % 0; Reactive Lymphocytes 0
[2018-10-09 04:19] LABS: Albumin 1.9 g/dL (3.4-5.0); Calcium 7.8 mg/dL (8.5-10.1); Magnesium 2.3 mg/dL (1.6-2.6); Potassium 3.8 mmol/L (3.5-5.1)
[2018-10-09 04:26] LABS: BUN/Creatinine Ratio 47.8; Bilirubin, Total 0.3 mg/dL (0.2-1.0); Phosphorus 2.4 mg/dL (2.5-4.90); Pre Albumin 12.3 mg/dL (20.0-40.0); Total Protein 5.3 g/dL (6.4-8.2)
--- NOTE | 2018-10-09 04:30 | NUR ---
WOUND CARE WOUND CARE IN THE RIGHT UPPER ARM DONE, DRESSING CHANGED.
--- NOTE | 2018-10-09 05:00 | NUR ---
PICC Line Dressing Change Bleeding from site noted, PICC line dressing change done with a sterile technique. Cleansed with chloraprep scrub/betadine. Stat lock, and bio-patch as available. Occlusive dressing applied.
[2018-10-09 05:21] LABS: Band Neutrophils % (manual) 6; Monocytes % (manual) 4 (0-12)
[2018-10-09 05:22] LABS: Lymphocytes % (manual) 2 (10.0-50.0)
[2018-10-09] MEDS: methylPREDNISolone SOD SUCC 40 MG/ML VL IV SCH ×3 (05:55→20:46)
[2018-10-09] MEDS: ACCU-CHEK COMFORT CURVE STRIP VI SCH ×4 (05:55→23:33)
[2018-10-09] MEDS: InsuLIN REG 1unit/0.01ml Soln (100units/ml) SC SCH ×4 (05:55→23:33)
[2018-10-09] MEDS: LEVOTHYROXINE SODIUM 25 MCG TAB PO SCH (05:56)
--- NOTE | 2018-10-09 07:20 | NUR ---
CLOSING NOTES LAYING ON BED, STILL ON VENT AND SEDATION WITH VERSED, PROPOFOL AND FENTANYL. REPORT GIVEN TO BERENICE WATTS.
[2018-10-09] MEDS: MICAFUNGIN SODIUM 100 MG in SODIUM CHL 0.9% 100 ML IV SCH (09:00)
[2018-10-09] MEDS: LINEZOLID 600MG/300ML 300 ML IV SCH ×2 (10:14→21:49)
[2018-10-09] MEDS: ENOXAPARIN SOD 60 MG/0.6 ML SYRINGE SC SCH ×2 (10:14→20:46)
[2018-10-09] MEDS: FAMOTIDINE (10MG/ML) 2ML VL IV SCH ×2 (10:14→20:45)
[2018-10-09] MEDS: SODIUM CHLOR 0.9% PF (SALINE LOCK) 10ML VIAL/SYR IV SCH ×2 (10:17→20:46)
--- NOTE | 2018-10-09 10:25 | NUR ---
MD Dr. Duarte paged regarding systolic blood pressure being in the 160-180's, awaiting for MD to call back.
--- NOTE | 2018-10-09 10:27 | NUR ---
MD Dr. Duarte called back and aware of systolic blood pressure in the 160-180's, new orders received this RN to input into system.
[2018-10-09] MEDS: LABETALOL HCL 5 MG/ML ML 20ML VIAL IV PRN (11:04)
--- NOTE | 2018-10-09 11:50 | NUR ---
ADVANCE ETT 2CM PER XRAY. GOOD TIDAL VOLUME RETURN. WILL CONTINUE TO MONITOR PT.
[2018-10-09] MEDS ORDERED: FUROSEMIDE 20 MG/2 ML VIAL IV ONE (12:30)
[2018-10-09] MEDS ORDERED: METOPROLOL TARTRATE 25 MG TAB PO ONE (12:30)
[2018-10-09] MEDS ORDERED: INSULIN LANTUS (GLARGINE) 1 /0.01ml (100units/ml) SC ONE (12:30)
[2018-10-09] MEDS ORDERED: ACYCLOVIR 5MG/KG Q8HR PER RX 0 ML IV SCH (12:30)
[2018-10-09] MEDS ORDERED: MORPHINE SULF INJ 2 MG/ML SYRINGE 1ML IV PRN (12:30)
[2018-10-09] MEDS ORDERED: POTASSIUM EFFERVESENT TAB 25 MEQ GT ONE (12:30)
--- NOTE | 2018-10-09 12:39 | NUR ---
Nutrition consult/Follow-up Notes Wt.: 61.3 kg Pt`s intubated sedated with propofol @ 16.74 ml/hr providing 441 kcals from fats with no family by bedside. per RN pt is NPO on EN support on hold as pt was with high residuals. per RN pt also has CT head toay and hence not restarted with feeds. per RN pt also initiated on PN support from last night as pt unable to tolerate EN. per RN pt might resume EN as he tolerates. pt initiated on PN support @ 46 ml.hr providing 740 kcals and 50 gm proteins 540 NCP. pt with inadequate PN support as it meets 54-65% kcals and 53-69% proteins with propofol on board Est. Needs IBW (72 kg): 0254-4089 kcal (25-30 kcal/kgBW), 72-93 gms pro (1.0-1.3 gms/kgBW r/t severe hypoalb). Will continue to monitor pertinent labs and reassess nutrient need prn Labs: ALB 1.9 L, CA 7.8 L GLU 299 H, BUN 22 H, CO2 39 H, PREALB 12.3 L, TG 358 H Skin: Atilio scale 13, high risk pt with multiple skin tears and scabs per RN doc GI: Pt had 1 BM today per line crew supervisor. PES: Altered nutrition related lab values r/t acute/chronic medical condition aeb elev BUN A1C, hypercapnia, hyperglycemia, Increased nutrient needs r/t current chronic medical condition aeb pt`s with cancer underwt and NPO intubated with severe hypoalb Will continue to monitor NPO status, PN tolerance, skin status, pertinent labs and weight trend. F/u in 2-3 days. Rec.: 1.) advance diet as medically feasible. 2) advance PN support to meet > 75% of needs if pt unable to tolerate EN. 3) consider to resume EN support with Glucerna @ 70 ml./hr per MD approval as pt tolerates. 3) consider prostat 1 packet bid. 4) consider MVI.C bid. 5) refer to CDE on DC. 6) continue current plan of care
[2018-10-09] MEDS ORDERED: IOHEXOL 350 MG/ML 100ML IJ ONE (12:47)
--- NOTE | 2018-10-09 13:20 | NUR ---
CT SCAN Patient has gone to CT scan accompanied by Paula RN and Izabela RT, patient connected to portable ventilator and energy conservation technician. Awaiting for patient to arrive back into room 107.
--- NOTE | 2018-10-09 13:21 | NUR ---
PT TRANSPORTED TO CT SCAN WITH NO INCIDENT REPORTED. PT WAS MONITORED WITH FUSE CUTTER AND VENTILATED WITH TRANSPORT VENT ON. PT HAD GOOD TIDAL VOLUME RETURN WITH GOOD CHEST RISE, RR 22, HR 87, SPO2 98%. ALARMS ON AND AUDIBLE. AMBUBAG CONNECTED TO 02 TANK WITH PEEP VALVE. WILL CONTINUE TO MONITOR PT.
--- NOTE | 2018-10-09 13:45 | NUR ---
PATIENT RETURNED Patient returned from CT SCAN without incident.
--- NOTE | 2018-10-09 14:35 | NUR ---
BEDDING/DRESSING CHANGE Dressing to right IJ changed secondary to saturated, applied pressure dressing to stop oozing of site. Complete linen change done with the assistance of Tosha WATTS. Patient tolerated well.
[2018-10-09] MEDS ORDERED: fentaNYL Drip 2500mCg/250mlNS 250 ML IV ONE (15:54)
[2018-10-09] MEDS: SODIUM CHL 0.9% IV SCH (16:00)
[2018-10-09] MEDS: ACYCLOVIR SOD IV SCH (16:00)
[2018-10-09] MEDS ORDERED: TPN PER PHARMACY IV NR ×9 (20:00)
--- NOTE | 2018-10-09 20:00 | NUR ---
TEMP 99.7, COOLING MEASURES PROVIDED.
[2018-10-09] MEDS: MIDAZOLAM DRIP 50 mg/50mL 50 ML IV SCH (20:37)
--- NOTE | 2018-10-09 21:04 | NUR ---
RECEIVED A CALL FROM , UPDATE GIVEN AFTER OBTAINING A PASSWORD.
--- NOTE | 2018-10-09 22:00 | NUR ---
NGT RESIDUALS 60 ML, TF STILL ON HOLD.
[2018-10-09] MEDS: METOPROLOL TARTRATE 25 MG TAB PO SCH (22:04)
[2018-10-10] VITALS (110 sets, daily range): BP systolic 112–175; BP diastolic 56–84
[2018-10-10] MEDS: IPRATROPIUM BROM 0.5 MG/2.5ML INH SOL NEB SCH ×4 (00:39→19:48)
[2018-10-10] MEDS: ALBUTEROL SULF 2.5 MG/0.5ML(0.5%) NEB SOLN NEB SCH ×4 (00:39→19:48)
[2018-10-10] MEDS: PROPOFOL 100 ML IV SCH ×2 (01:00→21:29)
[2018-10-10] MEDS: MEROPENEM 1GM IVPB 100 ML IV SCH ×3 (03:23→18:41)
--- NOTE | 2018-10-10 04:00 | NUR ---
Patient bathe/linen change Patient given complete bath. Skin integrity assessed for any changes. Linens changed. Patient repositioned for comfort. Elimination Had small amount of soft stools, cleansed and sacral optifoam changed.
[2018-10-10] MEDS: fentaNYL Drip 2500mCg/250mlNS 250 ML IV SCH (04:36)
[2018-10-10 04:46] LABS: Hemoglobin 8.9 g/dL (13.5-17.5); White Blood Cell 16.8 10^3/uL (4.4-10.8)
[2018-10-10 04:47] LABS: Hematocrit 26.4 % (41.0-53.0); Mean Corpuscular Hemoglobin 31.2 pg (28.0-32.0); Mean Corpuscular Hgb Conc. 33.6 g/dL (32.0-36.0); Mean Corpuscular Volume 92.9 fL (80.0-100.0); Platelet Count (auto) 494 10^3/uL (140-450); Red Blood Cells 2.84 10^6/uL (4.5-5.90)
[2018-10-10 04:48] LABS: Potassium 4.1 mmol/L (3.5-5.1)
[2018-10-10 04:49] LABS: Basophils % (manual) 0 (0.0-2.0); Blast Cells 0; Eosinophils % (manual) 0 (0-7); Metamyelocytes % 0; Myelocytes % 0; Promyelocytes % 0; Reactive Lymphocytes 0
[2018-10-10 04:56] LABS: Albumin 1.9 g/dL (3.4-5.0); BUN/Creatinine Ratio 44.4; Bilirubin, Total 0.3 mg/dL (0.2-1.0); Calcium 7.9 mg/dL (8.5-10.1); Magnesium 2.1 mg/dL (1.6-2.6); Phosphorus 2.5 mg/dL (2.5-4.90); Total Protein 5.5 g/dL (6.4-8.2)
[2018-10-10] MEDS: ACCU-CHEK COMFORT CURVE STRIP VI SCH ×3 (06:00→18:00)
--- NOTE | 2018-10-10 06:10 | NUR ---
RT NOTE: TX HELD AT THIS TIME DUE TO UNSTABLE HR RANGING FROM 144-146. WILL CONTINUE TO MONITOR.
[2018-10-10] MEDS: InsuLIN REG 1unit/0.01ml Soln (100units/ml) SC SCH ×3 (06:50→18:00)
[2018-10-10] MEDS: methylPREDNISolone SOD SUCC 40 MG/ML VL IV SCH (06:50)
[2018-10-10] MEDS: LEVOTHYROXINE SODIUM 25 MCG TAB PO SCH (06:50)
[2018-10-10 06:51] LABS: Band Neutrophils % (manual) 3; Lymphocytes % (manual) 2 (10.0-50.0); Monocytes % (manual) 4 (0-12)
[2018-10-10] MEDS: MICAFUNGIN SODIUM 100 MG in SODIUM CHL 0.9% 100 ML IV SCH (09:00)
--- NOTE | 2018-10-10 09:30 | NUR ---
FAMILY Patients , Susi, at bedside updated on patient condition.
[2018-10-10] MEDS: INSULIN LANTUS (GLARGINE) 1 /0.01ml (100units/ml) SC SCH (09:46)
[2018-10-10] MEDS: METOPROLOL TARTRATE 25 MG TAB PO SCH ×2 (09:46→22:00)
[2018-10-10] MEDS: LINEZOLID 600MG/300ML 300 ML IV SCH ×2 (09:47→21:27)
[2018-10-10] MEDS: ENOXAPARIN SOD 60 MG/0.6 ML SYRINGE SC SCH ×2 (09:47→21:28)
[2018-10-10] MEDS: SODIUM CHLOR 0.9% PF (SALINE LOCK) 10ML VIAL/SYR IV SCH ×2 (09:47→21:27)
[2018-10-10] MEDS: FAMOTIDINE (10MG/ML) 2ML VL IV SCH ×2 (09:48→21:27)
--- NOTE | 2018-10-10 12:33 | NUR ---
WOUND CARE NOTE: Wound care in to see patient for reevaluation of wounds. Patient continue resting in ICU bed in Rm. 107. He's intubated, sedated and mechanically ventilated. Patient appears to be in no pain using Malloy Rebollar Faces Pain Scale. His Atilio score is 13. Patient's bilateral arm skin tear remain the same, red with p ink tony wound. Patient has bilateral arm edema and his Rt arm is more edematous in comparison to L arm. His skin tear to R upper arm has moderate serous drainage, no odor noted. Cleansed skin tears and changed the dressing as ordered. Patient's mid sacrum display pink brown hyperpigmented skin. He continue to display open wounds to R upper sacrum and multi scabbed wounds to Rt groin, thigh, hip, Rt lower leg, reports by family at bedside "from shingles". Tony care given, applied Z Guard cream to sacrum and covered upper sacrum with Opti foam sacral dressing. Wound stats can be found in nurse intervention wound assessment part. Photograph of wounds are taken for reference. Repositioned patient for comfort facing his L side, redistributed pressure points with pillows. Patient's and son at bedside, skin/wound care provided, verbalized understanding. RECOMMENDATIONS: Continuation of all wound care orders prescribed by MD, continue with skin/wound plan of care, continue monitoring by wound care while patient is hospitalized. Addendum: 10/10/18 at 1851 by Jamee Granger RN Amended: Links added.
[2018-10-10] MEDS: SODIUM CHL 0.9% IV SCH (16:00)
[2018-10-10] MEDS: ACYCLOVIR SOD IV SCH (16:00)
--- NOTE | 2018-10-10 19:00 | NUR ---
OPENING NOTES ASSUMED CARE, STILL ON VENT AND SEDATION, NGT INFUSING GLUCERNA @ 10ML/HR, RIGHT IJ TLC INTACT, OLIVO CATHETER DRAINING TO A CLEAR YELLOW URINE, SCABS ON RIGHT THIGH AND BLISTERS ON BILATERAL ARMS NOTED. BED IN LOWEST POSITION WITH SIDE RAILS UP, BED ALARM ON.
[2018-10-10] MEDS ORDERED: TPN PER PHARMACY IV NR ×11 (20:00)
[2018-10-11] VITALS (106 sets, daily range): BP systolic 96–170; BP diastolic 50–83
[2018-10-11] MEDS: ACCU-CHEK COMFORT CURVE STRIP VI SCH ×5 (00:14→23:30)
[2018-10-11] MEDS: InsuLIN REG 1unit/0.01ml Soln (100units/ml) SC SCH ×5 (00:15→23:30)
[2018-10-11] MEDS: ALBUTEROL SULF 2.5 MG/0.5ML(0.5%) NEB SOLN NEB SCH ×4 (00:57→19:31)
[2018-10-11] MEDS: IPRATROPIUM BROM 0.5 MG/2.5ML INH SOL NEB SCH ×4 (00:58→19:31)
[2018-10-11 03:42] LABS: Hemoglobin 8.9 g/dL (13.5-17.5); Red Cell Distribution Width 17.4 % (11.8-14.3)
[2018-10-11 03:43] LABS: Hematocrit 26.7 % (41.0-53.0); Mean Corpuscular Hemoglobin 30.9 pg (28.0-32.0); Mean Corpuscular Hgb Conc. 33.3 g/dL (32.0-36.0); Mean Corpuscular Volume 92.8 fL (80.0-100.0); Platelet Count (auto) 498 10^3/uL (140-450); Red Blood Cells 2.87 10^6/uL (4.5-5.90); White Blood Cell 17.8 10^3/uL (4.4-10.8)
[2018-10-11 03:53] LABS: Band Neutrophils % (manual) 0; Basophils % (manual) 0 (0.0-2.0); Blast Cells 0; Metamyelocytes % 0; Myelocytes % 0; Promyelocytes % 0; Reactive Lymphocytes 0
[2018-10-11] MEDS: MEROPENEM 1GM IVPB 100 ML IV SCH ×2 (03:53→12:15)
[2018-10-11 03:59] LABS: Albumin 1.8 g/dL (3.4-5.0); Calcium 7.9 mg/dL (8.5-10.1); Potassium 4.1 mmol/L (3.5-5.1)
[2018-10-11] MEDS: MIDAZOLAM DRIP 50 mg/50mL 50 ML IV SCH ×2 (04:00→21:29)
[2018-10-11] MEDS: fentaNYL Drip 2500mCg/250mlNS 250 ML IV SCH ×2 (04:00→16:23)
--- NOTE | 2018-10-11 04:00 | NUR ---
CALLED AND GIVEN PT'S UPDATED STATUS.
[2018-10-11 04:01] LABS: BUN/Creatinine Ratio 51.3
[2018-10-11 04:04] LABS: Bilirubin, Total 0.3 mg/dL (0.2-1.0)
[2018-10-11 04:17] LABS: Phosphorus 2.9 mg/dL (2.5-4.90)
--- NOTE | 2018-10-11 05:00 | NUR ---
ELIMINATION/MORNING CARE SMALL AMOUNT OF SOFT BROWN STOOLS NOTED. CLEANSED AND KEPT DRY AND COMFORTABLE. REPOSITIONED FOR COMFORT.
[2018-10-11 06:06] LABS: Eosinophils % (manual) 2 (0-7); Lymphocytes % (manual) 9 (10.0-50.0); Monocytes % (manual) 4 (0-12)
[2018-10-11] MEDS: LEVOTHYROXINE SODIUM 25 MCG TAB PO SCH (07:00)
--- NOTE | 2018-10-11 08:30 | NUR ---
MD Dr. Cornell at bedside updated on patient condition with new orders, MD to input into system. Will continue to monitor patient closely.
[2018-10-11] MEDS: MICAFUNGIN SODIUM 100 MG in SODIUM CHL 0.9% 100 ML IV SCH (08:31)
[2018-10-11] MEDS: INSULIN LANTUS (GLARGINE) 1 /0.01ml (100units/ml) SC SCH (10:10)
[2018-10-11] MEDS: ENOXAPARIN SOD 60 MG/0.6 ML SYRINGE SC SCH ×2 (10:11→22:50)
[2018-10-11] MEDS: FAMOTIDINE (10MG/ML) 2ML VL IV SCH ×2 (10:11→22:50)
[2018-10-11] MEDS: METOPROLOL TARTRATE 25 MG TAB PO SCH ×2 (10:12→22:50)
[2018-10-11] MEDS: LINEZOLID 600MG/300ML 300 ML IV SCH ×2 (10:13→22:50)
[2018-10-11] MEDS: SODIUM CHLOR 0.9% PF (SALINE LOCK) 10ML VIAL/SYR IV SCH ×2 (10:18→22:50)
[2018-10-11] MEDS ORDERED: FUROSEMIDE 20 MG/2 ML VIAL IV ONE (11:45)
[2018-10-11] MEDS ORDERED: POTASSIUM EFFERVESENT TAB 25 MEQ GT ONE (11:45)
--- NOTE | 2018-10-11 11:45 | NUR ---
MD Dr. Duarte at bedside updated on patient condition with new orders, MD to input into system. MD spoke to patients and son , whom are at bedside, regarding plan of care. Questions/concerns answered by MD.
[2018-10-11] MEDS: PROPOFOL 100 ML IV SCH ×3 (12:14→21:20)
--- NOTE | 2018-10-11 13:00 | NUR ---
SEDATION Increased Versed to 5mg secondary to patient stacking breaths and desats to 88%. Will continue to monitor patient closely.
--- NOTE | 2018-10-11 13:45 | NUR ---
thermoregulation pt starting to spike a high temperature rectally 99.5, tachypneic, stacking his breaths on ventilator, RR in the 20's with TV ranging in the 700's to the low 60's, HR starting to increase to the 110's to the 120's in this condition, unable to take this patient to cat- scan due to the unstable condition. Cooling measures implemented with ice-packs.
[2018-10-11] MEDS: ACETAMINOPHEN 650 mg PER 20 mL UD GT PRN (14:56)
[2018-10-11] MEDS: SODIUM CHL 0.9% IV SCH (17:24)
[2018-10-11] MEDS: ACYCLOVIR SOD IV SCH (17:24)
--- NOTE | 2018-10-11 19:39 | NUR ---
INITIAL CONTACT ASSUMED CARE OF PATIENT PATIENT APPEARS TO BE RESTING IN BED COMFORTABLY IN SEMI-FOWLERS POSITION AT THIS TIME. PATIENT IS INTUBATED AND SEDATED ON PROPOFOL, VERSED, FENTANYL. SEE IV SPREADSHEET FOR MEDICATIONS AND TITRATION. VITAL SIGNS SHOW TACHYCARDIA, NO S/S OF DISTRESS NOTED, NO FACIAL GRIMACE NOTED. RIGHT IJ TRIPLE LUMEN, MID LINE TO LEFT UPPER ARM NO S/S OF PHLEBITIS OR INFILTRATION AT THIS TIME. OLIVO CATHETER IN TACT AND DRAINING TO GRAVITY. VENTILATOR PLUGGED INTO RED OUTLET PRE VAP/PROTOCOL, SIDE RAILS UP X 2, PATIENT IS IN FULL VIEW OF NURSES STATION, SAFETY MAINTAINED, WILL CONTINUE TO MONITOR.
[2018-10-11] MEDS ORDERED: TPN PER PHARMACY IV NR ×11 (20:00)
[2018-10-12] VITALS (98 sets, daily range): BP systolic 84–144; BP diastolic 44–88
[2018-10-12] MEDS: IPRATROPIUM BROM 0.5 MG/2.5ML INH SOL NEB SCH ×4 (00:04→18:22)
[2018-10-12] MEDS: ALBUTEROL SULF 2.5 MG/0.5ML(0.5%) NEB SOLN NEB SCH ×4 (00:05→18:22)
[2018-10-12] MEDS: MEROPENEM 1GM IVPB 100 ML IV SCH ×4 (01:57→18:06)
--- NOTE | 2018-10-12 03:00 | NUR ---
Patient bathe/linen change Patient given complete bath. Skin integrity assessed for any changes. Linens changed. Patient repositioned for comfort. Gown change. patient tolerated well
[2018-10-12 04:07] LABS: Hemoglobin 9.6 g/dL (13.5-17.5)
[2018-10-12 04:08] LABS: Hematocrit 28.3 % (41.0-53.0); Mean Corpuscular Hemoglobin 31.7 pg (28.0-32.0); Mean Corpuscular Volume 93.3 fL (80.0-100.0); Platelet Count (auto) 455 10^3/uL (140-450); Red Blood Cells 3.03 10^6/uL (4.5-5.90); Red Cell Distribution Width 17.9 % (11.8-14.3); White Blood Cell 22.9 10^3/uL (4.4-10.8)
--- NOTE | 2018-10-12 04:13 | NUR ---
CALL RECEIVED FROM SPOUSE MARIA FERNANDA WAS UPDATED ON PATIENT'S CURRENT CONDITION. ALL QUESTIONS AND CONCERNS WERE ADDRESSED.
[2018-10-12 04:20] LABS: Basophils % (manual) 0 (0.0-2.0); Blast Cells 0; Metamyelocytes % 0; Myelocytes % 0; Promyelocytes % 0; Reactive Lymphocytes 0
[2018-10-12 04:28] LABS: Albumin 1.9 g/dL (3.4-5.0); BUN/Creatinine Ratio 55.6; Calcium 7.9 mg/dL (8.5-10.1); Potassium 4.3 mmol/L (3.5-5.1)
[2018-10-12 04:30] LABS: Bilirubin, Total 0.8 mg/dL (0.2-1.0); Total Protein 5.3 g/dL (6.4-8.2)
[2018-10-12 04:52] LABS: Phosphorus 3.7 mg/dL (2.5-4.90)
[2018-10-12 06:45] LABS: Band Neutrophils % (manual) 4; Eosinophils % (manual) 2 (0-7); Lymphocytes % (manual) 10 (10.0-50.0); Monocytes % (manual) 6 (0-12)
[2018-10-12] MEDS: LEVOTHYROXINE SODIUM 25 MCG TAB PO SCH (07:15)
[2018-10-12] MEDS: ACCU-CHEK COMFORT CURVE STRIP VI SCH ×4 (07:15→23:40)
[2018-10-12] MEDS: InsuLIN REG 1unit/0.01ml Soln (100units/ml) SC SCH ×4 (07:50→23:40)
--- NOTE | 2018-10-12 08:00 | NUR ---
PT HAVING A FEVER , TEMP 101.5 PT JUST RECEIVED A BATH FROM BOARD CERTIFIED FAMILY PHYSICIAN, HAS FAN ON ICE-PACKS APPLIED TO BOTH ARM PITS, GROIN AND BEHIND THE HEAD.
--- NOTE | 2018-10-12 08:00 | NUR ---
PT'S WANTS TO HOLD OFF DOING CT SCAN FOR COUPLE DAYS TO ALLOW PT TO RECOVER. PT HAS BEEN UNSTABLE THIS AM AND LAST NIGHT TO PERFORM CT SCAN. I AGREED WITH PT'S TO HOLD CT SCAN TO ALLOW PT TO RECOVER AN I TOLD PT'S THAT SHE HAS THE RIGHT TO SPEAK UP ON PT'S BEHALF IF SHE DID NOT AGREED WITH POC, TO LET US KNOW AND WE'LL TAKE THAT INTO CONSIDERATION. PT HAS BEEN FEBRILE AND TACHYCARDIC, TACHYPNEIC THIS AM AND HYPOTENSIVE.
[2018-10-12] MEDS: MICAFUNGIN SODIUM 100 MG in SODIUM CHL 0.9% 100 ML IV SCH (09:17)
[2018-10-12] MEDS: METOPROLOL TARTRATE 25 MG TAB PO SCH ×2 (09:35→22:00)
[2018-10-12] MEDS: ENOXAPARIN SOD 60 MG/0.6 ML SYRINGE SC SCH ×2 (09:36→22:10)
[2018-10-12] MEDS: FAMOTIDINE (10MG/ML) 2ML VL IV SCH ×2 (09:36→22:08)
[2018-10-12] MEDS: SODIUM CHLOR 0.9% PF (SALINE LOCK) 10ML VIAL/SYR IV SCH ×2 (09:37→22:09)
[2018-10-12] MEDS: INSULIN LANTUS (GLARGINE) 1 /0.01ml (100units/ml) SC SCH (10:21)
--- NOTE | 2018-10-12 10:22 | NUR ---
THERMOREGULATION PT'S TEMP 98.4 ALL ICE-PACKS REMOVED, FAN TURNED OFF, VSS, PT'S AT BED SIDE, EDUCATED ON POC. CALLED PT, REQUESTED FOR FOOT DROP BOOTS, THEY REQUESTED FOR AN MD ORDERS AND PT'S FACE SHEET. WILL REQUEST REQUIRE DATA FROM MD WHEN MAKING ROUNDS. PT GETTING BOOTS READY FOR PT.
[2018-10-12] MEDS: LINEZOLID 600MG/300ML 300 ML IV SCH ×2 (10:30→22:09)
[2018-10-12] MEDS: MIDAZOLAM DRIP 50 mg/50mL 50 ML IV SCH ×3 (11:33→19:12)
--- NOTE | 2018-10-12 12:52 | NUR ---
DR. ROTHMAN IN ROUNDING ON PT HE UPDATED PT'S ON PT'S CURRENT CONDITION AND POC. DISCUSSED PLAN OF CHANGING ATB, CHECKING BCX, REPLACING MD PALLAVI WILL BE OFF THIS WEEKEND WILL HAVE DR. ADAMS FOLLOW UP PT AND WILL FOLLOW UP PT'S CARE ON MONDAY HE'LL KEEP UPDATES ON PT'S CONDITION OVER THE WEEKEND.
--- NOTE | 2018-10-12 13:45 | NUR ---
OLIVO REPLACED USING A STERILE TECHNIQUE PER MD ORDERS, OLIVO RETURNED 50 ML OF PALE YELLOW URINE, PT TOLERATED OLIVO INSERTION WELL. PT UNDER COOLING MEASURES. ICE AND FAN. WILL ADMINISTER TYLENOL.
--- NOTE | 2018-10-12 13:55 | NUR ---
PT IN PT APPLIED FOOT DROP BOOTS ON PT. PT TOLERATED PROCEDURE WELL. PULSES TO BOTH FEET REMAIN INTACT.
[2018-10-12] MEDS: ACETAMINOPHEN 650 mg PER 20 mL UD GT PRN ×2 (14:01→21:30)
[2018-10-12] MEDS: METOCLOPRAMIDE HCL 5MG/ml INJ 2ml VIAL IV SCH ×2 (14:45→22:09)
--- NOTE | 2018-10-12 14:45 | NUR ---
MACHINE CEMENTER ROUNDING/ DR. IRMA SOLIS IN TO ASSESS PT, HE IS COVERING FOR DR. STEPHENS. UPDATED ON PT'S, CONDITION, NO NEW ORDERS RECEIVED.
[2018-10-12] MEDS: VORICONAZOLE INJ 400 MG in D5W 5% 250 ML IV SCH (15:15)
[2018-10-12] MEDS: ACYCLOVIR SOD IV SCH (16:37)
[2018-10-12] MEDS: SODIUM CHL 0.9% IV SCH (16:37)
[2018-10-12] MEDS: fentaNYL Drip 2500mCg/250mlNS 250 ML IV SCH (17:46)
[2018-10-12] MEDS ORDERED: PPN PER PHARMACY IV NR ×11 (20:00)
--- NOTE | 2018-10-12 21:32 | NUR ---
CALL RCVD FROM PATIENTS SPOUSE MARIA FERNANDA WAS UPDATED ON PATIENT CURRENT CONDITION ALL CONCERNS WERE ADDRESSED
[2018-10-13] VITALS (106 sets, daily range): BP systolic 93–145; BP diastolic 38–89
[2018-10-13] MEDS: IPRATROPIUM BROM 0.5 MG/2.5ML INH SOL NEB SCH ×4 (00:08→18:38)
[2018-10-13] MEDS: ALBUTEROL SULF 2.5 MG/0.5ML(0.5%) NEB SOLN NEB SCH ×4 (00:08→18:38)
--- NOTE | 2018-10-13 03:15 | NUR ---
Patient bathe/linen change Patient given complete bath. Skin integrity assessed for any changes. Linens changed. Patient repositioned for comfort. Gown change. patient tolerated well
[2018-10-13] MEDS: VORICONAZOLE INJ 400 MG in D5W 5% 250 ML IV SCH (03:51)
[2018-10-13 03:52] LABS: Hemoglobin 9.1 g/dL (13.5-17.5); Mean Corpuscular Hemoglobin 31.6 pg (28.0-32.0); Mean Corpuscular Hgb Conc. 33.7 g/dL (32.0-36.0); Mean Corpuscular Volume 93.6 fL (80.0-100.0); Platelet Count (auto) 427 10^3/uL (140-450); Red Blood Cells 2.89 10^6/uL (4.5-5.90); White Blood Cell 27.7 10^3/uL (4.4-10.8)
[2018-10-13] MEDS: MEROPENEM 1GM IVPB 100 ML IV SCH ×3 (03:52→20:02)
[2018-10-13] MEDS: PROPOFOL 100 ML IV SCH ×2 (03:57→18:00)
[2018-10-13 04:29] LABS: % Iron Saturation 8.3 % (20-55)
[2018-10-13 04:30] LABS: Albumin 1.7 g/dL (3.4-5.0); Basophils % (manual) 0 (0.0-2.0); Blast Cells 0; Calcium 7.8 mg/dL (8.5-10.1); Magnesium 2.1 mg/dL (1.6-2.6); Metamyelocytes % 0; Myelocytes % 0; Potassium 4.1 mmol/L (3.5-5.1); Promyelocytes % 0; Reactive Lymphocytes 0
[2018-10-13 04:34] LABS: BUN/Creatinine Ratio 59.4; Bilirubin, Total 0.8 mg/dL (0.2-1.0); Phosphorus 2.8 mg/dL (2.5-4.90); Total Protein 5.4 g/dL (6.4-8.2)
[2018-10-13 05:23] LABS: Band Neutrophils % (manual) 4; Eosinophils % (manual) 1 (0-7); Lymphocytes % (manual) 3 (10.0-50.0); Monocytes % (manual) 2 (0-12)
[2018-10-13] MEDS: ACCU-CHEK COMFORT CURVE STRIP VI SCH ×3 (06:02→18:01)
[2018-10-13] MEDS: InsuLIN REG 1unit/0.01ml Soln (100units/ml) SC SCH ×3 (06:08→18:01)
[2018-10-13] MEDS: METOCLOPRAMIDE HCL 5MG/ml INJ 2ml VIAL IV SCH ×3 (06:10→21:41)
[2018-10-13] MEDS: LEVOTHYROXINE SODIUM 25 MCG TAB PO SCH (07:16)
--- NOTE | 2018-10-13 07:30 | NUR ---
ASSESS- PT. LYING IN BED ON VENT SIZE # 8.0 ET, 22 AT THE LIP, PC-20, PRESSURE 14, PEEP-5, TV-500, FIO2-35%. LUNGS CLEAR TIMMY. INSPIRATORY AND EXPIRATORY, DIMINISHED BASES TIMMY. PT. HAS HYPOACTIVE GAG/COUGH REFLEX. PUPILS 3 AND SLUGGISH TIMMY. NO MOVEMENT OF EXTREMITIES SEEN. RESPONDS TO DEEP PAINFUL STIMULI. ON VERSED GTT. AT 13 MG./HR., FENTANYL GTT. AT 200 MCG. AND PROPOFOL GTT. AT 9 MCG. TLC RT. IJ INTACT. MID-LINE FIONA INTACT. RADIAL PULSES STRONG, PALPABLE TIMMY. PEDAL PULSES WEAK, PALPABLE TIMMY. 2 PLUS EDEMA ARMS TIMMY. AND 1 PLUS NON-PITTING EDEMA FT. TIMMY. PT. HAS TIMMY. FOOTDROP BOOTS IN PLACE. NGT LT. NARE INTACT, CLAMPED. ABD. SOFT, FLAT. BOWEL SOUNDS HYPOACTIVE ALL FOUR QUADRANTS. F/C TO GRAVITY WITH CLEAR YELLOW URINE. RECTAL PROBE IN PLACE. RT. THIGH WITH SHINGLES, SCABBED, OPEN TO AIR, RT. BUTTOCK WITH OPEN SHINGLES OPEN TO AIR, OPTIFOAM DSG. IN PLACE, D/I. LT. FOREARM WITH OPEN BLISTER WITH OPTIFOAM DSG. D/I. RT. HIP WITH STAGE 2 ULCER WITH OPTIFOAM DSG. D/I.
--- NOTE | 2018-10-13 07:45 | NUR ---
PT. NOTED TO HAVE SUBCUTANEOUS EMPHYSEMA ON UPPER CHEST AREA FELT.
--- NOTE | 2018-10-13 08:00 | NUR ---
T-100.0 RECTALLY. PLACED ICE PACKS TIMMY. AXILLA AND TIMMY. GROIN. NO COVERS ON PT.
[2018-10-13] MEDS: ENOXAPARIN SOD 60 MG/0.6 ML SYRINGE SC SCH ×2 (09:37→21:41)
[2018-10-13] MEDS: FAMOTIDINE (10MG/ML) 2ML VL IV SCH ×2 (09:37→21:41)
[2018-10-13] MEDS: LINEZOLID 600MG/300ML 300 ML IV SCH ×2 (09:38→21:41)
[2018-10-13] MEDS: SODIUM CHLOR 0.9% PF (SALINE LOCK) 10ML VIAL/SYR IV SCH (09:44)
[2018-10-13] MEDS: INSULIN LANTUS (GLARGINE) 1 /0.01ml (100units/ml) SC SCH (09:44)
--- NOTE | 2018-10-13 10:10 | NUR ---
CALLED AND SPOKE WITH PHARMACIST REGARDING VFEND ORDERED YEST. AND NO LONGER ON MAY, DR. ROTHMAN CALLED AND ASKED TO CLARIFY, SAID HE WANTS IT TO CONTINUE. PHARMACIST SAID IT NEEDS TO BE AT A LOWER DOSE, HE RECEIVED LOADING DOSE YEST. TIMES 2. PHARMACIST ORDERED LOWER DOSE TO START TODAY.
--- NOTE | 2018-10-13 10:45 | NUR ---
TEMP 100.6 RECTALLY. MED. PT. WITH TYLENOL 650 MG. VIA NGT. ICE PACKS REMAIN IN PLACE ON PT.
[2018-10-13] MEDS: ACETAMINOPHEN 650 mg PER 20 mL UD GT PRN (10:46)
--- NOTE | 2018-10-13 10:55 | NUR ---
DR. ADAMS Provider/Hospitalist at bedside. GAVE UPDATE ON PT. NEW ORDERS RECEIVED.
[2018-10-13] MEDS ORDERED: MORPHINE SULF INJ 2 MG/ML SYRINGE 1ML IV PRN (11:30)
[2018-10-13 13:08] LABS: Urine Bacteria FEW /hpf (None Seen); Urine Blood 1+ /uL (Negative); Urine Specific Gravity 1.019 (1.001-1.035); Urine WBC 6 /hpf (0 - 3)
--- NOTE | 2018-10-13 13:15 | NUR ---
TEMP DECREASED TO 100.2 RECTALLY NOW.
[2018-10-13] MEDS: MIDAZOLAM DRIP 50 mg/50mL 50 ML IV SCH ×4 (13:46→21:42)
[2018-10-13] MEDS: SODIUM CHL 0.9% IV SCH (15:21)
[2018-10-13] MEDS: ACYCLOVIR SOD IV SCH (15:21)
[2018-10-13] MEDS: VORICONAZOLE IV SCH (16:00)
[2018-10-13] MEDS: D5W 5% IV SCH (16:00)
--- NOTE | 2018-10-13 16:00 | NUR ---
PT. HAD LG. LIQUID BROWN STOOL. BENEDICT CARE DONE AND LINENS AND GOWN CHANGED.
[2018-10-13] MEDS: fentaNYL Drip 2500mCg/250mlNS 250 ML IV SCH (16:53)
--- NOTE | 2018-10-13 18:10 | NUR ---
PT. HAD MOD. SIZE LIQUID BROWN STOOL. BENEDICT CARE DONE AND LINENS CHANGED.
--- NOTE | 2018-10-13 18:35 | NUR ---
DR. SOLIS Provider/Hospitalist at bedside. GAVE UPDATE ON PT.
[2018-10-13] MEDS ORDERED: TPN PER PHARMACY IV NR ×11 (20:00)
--- NOTE | 2018-10-13 22:00 | NUR ---
SEDATION INCREASED PATIENT IS TACHYPNEIC ON VENTILATOR PRESSURE CONTROL MODE AND HAVING ABDOMINAL BREATHING. VERSED INCREASED TO 15MG/HR.
--- NOTE | 2018-10-13 22:00 | NUR ---
DTI NOTED LT.EAR LOBE. WILL TAKE PICTURE FOR REFERENCE. Addendum: 10/14/18 at 0315 by Wandy James RN ERROR ON CHARTING DTI NOTED ON HELIX OF LT EAR.
[2018-10-14] VITALS (106 sets, daily range): BP systolic 92–150; BP diastolic 44–167
[2018-10-14] MEDS: ACCU-CHEK COMFORT CURVE STRIP VI SCH ×4 (00:23→17:51)
[2018-10-14] MEDS: IPRATROPIUM BROM 0.5 MG/2.5ML INH SOL NEB SCH ×4 (00:25→18:38)
[2018-10-14] MEDS: ALBUTEROL SULF 2.5 MG/0.5ML(0.5%) NEB SOLN NEB SCH ×4 (00:26→18:38)
[2018-10-14] MEDS: MIDAZOLAM DRIP 50 mg/50mL 50 ML IV SCH ×6 (01:45→22:00)
--- NOTE | 2018-10-14 02:00 | NUR ---
Central Line Dressing Changes Central line dressing change done with a sterile technique. Cleansed with chloraprep scrub/betadine. Bio-patch applied. Occlusive dressing applied.
[2018-10-14] MEDS: ACETAMINOPHEN 650 mg PER 20 mL UD GT PRN (02:45)
[2018-10-14] MEDS: MEROPENEM 1GM IVPB 100 ML IV SCH ×3 (03:34→21:06)
[2018-10-14] MEDS: D5W 5% IV SCH ×2 (03:35→15:44)
[2018-10-14] MEDS: VORICONAZOLE IV SCH ×2 (03:35→15:44)
[2018-10-14] MEDS: fentaNYL Drip 2500mCg/250mlNS 250 ML IV SCH ×2 (04:02→15:44)
[2018-10-14] MEDS ORDERED: fentaNYL Drip 2500mCg/250mlNS 250 ML IV SCH (05:28)
[2018-10-14] MEDS: METOCLOPRAMIDE HCL 5MG/ml INJ 2ml VIAL IV SCH ×3 (05:41→22:48)
[2018-10-14] MEDS: InsuLIN REG 1unit/0.01ml Soln (100units/ml) SC SCH ×4 (06:00→17:51)
[2018-10-14] MEDS: LEVOTHYROXINE SODIUM 25 MCG TAB PO SCH (06:18)
[2018-10-14 06:54] LABS: Hematocrit 25.4 % (41.0-53.0); Hemoglobin 8.5 g/dL (13.5-17.5); Mean Corpuscular Hemoglobin 31.7 pg (28.0-32.0); Mean Corpuscular Hgb Conc. 33.5 g/dL (32.0-36.0); Mean Corpuscular Volume 94.6 fL (80.0-100.0); Platelet Count (auto) 375 10^3/uL (140-450); Red Blood Cells 2.68 10^6/uL (4.5-5.90); Red Cell Distribution Width 18.1 % (11.8-14.3); White Blood Cell 24.3 10^3/uL (4.4-10.8)
[2018-10-14 06:57] LABS: Basophils % (manual) 0 (0.0-2.0); Blast Cells 0; Myelocytes % 0; Promyelocytes % 0; Reactive Lymphocytes 0
[2018-10-14 07:14] LABS: Potassium 4.2 mmol/L (3.5-5.1)
[2018-10-14 07:18] LABS: Albumin 1.6 g/dL (3.4-5.0); BUN/Creatinine Ratio 58.8; Bilirubin, Total 0.5 mg/dL (0.2-1.0); Calcium 7.9 mg/dL (8.5-10.1); Magnesium 2.2 mg/dL (1.6-2.6); Phosphorus 3.2 mg/dL (2.5-4.90); Total Protein 5.4 g/dL (6.4-8.2)
--- NOTE | 2018-10-14 07:25 | NUR ---
ASSESS- PT. LYING IN BED ON VENT SIZE #8.0 ET, 22 AT THE LIP, PC-20, PRESSURE-14, TV-500, PEEP-5, FIO2-35%. PT. HAS HYPOACTIVE GAG/COUGH REFLEX. PUPILS 3 AND SLUGGISH TIMMY. RESPONDS TO DEEP PAINFUL STIMULI. NO MOVEMENT OF EXTREMITIES SEEN. DOES NOT FOLLOW ANY COMMANDS. ON VERSED GTT. AT 15 MG./HR, PROPOFOL GTT. AT 15 MCG., FENTANYL GTT. AT 200 MCG. TLC RT. IJ INTACT. TPN AT 67 ML./HR. ABD. SOFT, FLAT. BOWEL SOUNDS HYPOACTIVE ALL FOUR QUADRANTS. NGT LT. NARE CLAMPED. F/C TO GRAVITY WITH CLEAR YELLOW URINE. RADIAL PULSES STRONG, PALPABLE TIMMY. 2 PLUS EDEMA ARMS AND HANDS TIMMY. DORSALIS PEDAL PULSES STRONG, PALPABLE TIMMY. 1 PLUS EDEMA LE TIMMY. SCD RT. LE. TIMMY. FT. DROP BOOTS IN PLACE. PT. ON DROPLET PRECAUTIONS FOR SHINGLES. RT. THIGH WITH SHINGLES OPEN TO AIR, CLOSED SCABS. RT. BUTTOCK WITH SHINGLES OPEN TO AIR. RT. HIP WITH STAGE 2 DECUB WITH OPTIFOAM DSG. D/I. LT. EAR WITH DTI OPEN TO AIR. LT. FOREARM WITH OPEN BLISTER WITH OPTIFOAM DSG. D/I. FIONA WITH MID-LINE INTACT.
[2018-10-14] MEDS: PROPOFOL 100 ML IV SCH (08:43)
--- NOTE | 2018-10-14 09:00 | NUR ---
PT. NOTED TO HAVE BLOODY SECRETIONS MOD. AMOUNT WHEN SUCTIONED ORALLY. WILL INFORM MD. PT. HAS CREPITUS ACROSS UPPER CHEST AREA.
[2018-10-14] MEDS: LINEZOLID 600MG/300ML 300 ML IV SCH ×2 (09:29→22:48)
[2018-10-14] MEDS: ENOXAPARIN SOD 60 MG/0.6 ML SYRINGE SC SCH (09:30)
[2018-10-14] MEDS: FAMOTIDINE (10MG/ML) 2ML VL IV SCH ×2 (09:30→22:48)
--- NOTE | 2018-10-14 09:30 | NUR ---
CHANGED DSG. TO RT. UPPER FOREARM, LG. AMOUNT SEROUS FLUID. CLEANSED WITH NS, PATTED DRY WITH 4X4, APPLIED THERAHONEY, VASELINE GAUZE, ABD PAD AND WRAPPED WITH KERLIX. PT. TOLERATED WELL.
[2018-10-14] MEDS: INSULIN LANTUS (GLARGINE) 1 /0.01ml (100units/ml) SC SCH (09:31)
--- NOTE | 2018-10-14 10:00 | NUR ---
PT. HAD MOD. SIZE LIQUID BROWN STOOL. BENEDICT CARE DONE AND LINENS CHANGED.
[2018-10-14 10:06] LABS: Band Neutrophils % (manual) 8; Eosinophils % (manual) 3 (0-7); Lymphocytes % (manual) 2 (10.0-50.0); Metamyelocytes % 1; Monocytes % (manual) 10 (0-12)
--- NOTE | 2018-10-14 11:15 | NUR ---
DR. ADAMS Provider/Hospitalist at bedside. GAVE UPDATE ON PT. NEW ORDERS RECEIVED.
--- NOTE | 2018-10-14 12:00 | NUR ---
FAMILY VISITING AT THE .
--- NOTE | 2018-10-14 15:00 | NUR ---
DR. PICKENS Provider/Hospitalist at bedside. GAVE UPDATE ON PT.
[2018-10-14] MEDS: SODIUM CHL 0.9% IV SCH (15:44)
[2018-10-14] MEDS: ACYCLOVIR SOD IV SCH (15:44)
--- NOTE | 2018-10-14 16:00 | NUR ---
TEMP 100.2 RECTALLY. PLACED ICE PACKS TIMMY. AXILLA AND TIMMY. GROIN AREA. FAN ON PT.
--- NOTE | 2018-10-14 16:50 | NUR ---
DR. SOLIS Provider/Hospitalist at bedside. GAVE UPDATE ON PT.
--- NOTE | 2018-10-14 18:00 | NUR ---
TEMP DECREASED TO 99.9 RECTALLY. ICE PACKS REMAIN IN PLACE.
--- NOTE | 2018-10-14 19:38 | NUR ---
INITIAL CONTACT ASSUMED CARE OF PATIENT PATIENT APPEARS TO BE RESTING IN BED COMFORTABLY IN SEMI-FOWLERS POSITION AT THIS TIME. PATIENT IS INTUBATED AND SEDATED ON PROPOFOL, VERSED, FENTANYL. SEE IV SPREADSHEET FOR MEDICATIONS AND TITRATION. VITAL SIGNS SHOW TACHYCARDIA, NO S/S OF DISTRESS NOTED, NO FACIAL GRIMACE NOTED. PATIENT DOES NOT RESPOND TO VERBAL STIMULATION, DOES NOT OPEN EYES AT THIS TIME. RIGHT IJ TRIPLE LUMEN, MID LINE TO LEFT UPPER ARM NO S/S OF PHLEBITIS OR INFILTRATION AT THIS TIME. OLIVO CATHETER IN TACT AND DRAINING TO GRAVITY. VENTILATOR PLUGGED INTO RED OUTLET PER VAP/PROTOCOL, SIDE RAILS UP X 2, PATIENT IS IN FULL VIEW OF NURSES STATION, SAFETY MAINTAINED, WILL CONTINUE TO MONITOR.
[2018-10-14] MEDS ORDERED: PPN PER PHARMACY IV NR ×11 (20:00)
--- NOTE | 2018-10-14 20:00 | NUR ---
CALL PLACED TO SPOUSE SPOKE WITH MARIA FERNANDA IRVING WAS GIVEN UPDATED PLAN OF CARE, AND PATIENT'S CURRENT CONDITION, ALL QUESTIONS AND CONCERNS WERE ADDRESSED
--- NOTE | 2018-10-14 20:16 | NUR ---
FAMILY AT BEDSIDE Addendum: 10/14/18 at 2018 by Mirna Stewart RN Incorrect patient
[2018-10-15] VITALS (102 sets, daily range): BP systolic 96–152; BP diastolic 51–98
[2018-10-15] MEDS: IPRATROPIUM BROM 0.5 MG/2.5ML INH SOL NEB SCH ×4 (00:10→18:47)
[2018-10-15] MEDS: ALBUTEROL SULF 2.5 MG/0.5ML(0.5%) NEB SOLN NEB SCH ×4 (00:10→18:46)
[2018-10-15] MEDS: ACCU-CHEK COMFORT CURVE STRIP VI SCH ×4 (00:25→18:26)
[2018-10-15] MEDS: ACETAMINOPHEN 650 mg PER 20 mL UD GT PRN (00:30)
[2018-10-15] MEDS: PROPOFOL 100 ML IV SCH ×2 (02:00→10:40)
[2018-10-15] MEDS: MIDAZOLAM DRIP 50 mg/50mL 50 ML IV SCH ×5 (02:25→20:11)
[2018-10-15] MEDS: fentaNYL Drip 2500mCg/250mlNS 250 ML IV SCH ×2 (03:30→16:42)
[2018-10-15 04:08] LABS: Hematocrit 23.6 % (41.0-53.0); Hemoglobin 7.9 g/dL (13.5-17.5); Mean Corpuscular Hemoglobin 31.8 pg (28.0-32.0); Mean Corpuscular Hgb Conc. 33.6 g/dL (32.0-36.0); Mean Corpuscular Volume 94.5 fL (80.0-100.0); Platelet Count (auto) 378 10^3/uL (140-450); Red Cell Distribution Width 18.1 % (11.8-14.3); White Blood Cell 21.7 10^3/uL (4.4-10.8)
[2018-10-15 04:28] LABS: Basophils % (manual) 0 (0.0-2.0); Blast Cells 0; Myelocytes % 0; Promyelocytes % 0; Reactive Lymphocytes 0
[2018-10-15 04:29] LABS: Albumin 1.5 g/dL (3.4-5.0); Calcium 7.9 mg/dL (8.5-10.1); Potassium 4.1 mmol/L (3.5-5.1)
[2018-10-15 04:34] LABS: BUN/Creatinine Ratio 54.8; Bilirubin, Total 0.4 mg/dL (0.2-1.0); Total Protein 5.5 g/dL (6.4-8.2)
[2018-10-15 04:46] LABS: Magnesium 2.2 mg/dL (1.6-2.6); Phosphorus 3.3 mg/dL (2.5-4.90)
[2018-10-15] MEDS: InsuLIN REG 1unit/0.01ml Soln (100units/ml) SC SCH ×4 (06:00→18:27)
--- NOTE | 2018-10-15 06:00 | NUR ---
Patient bathe/linen change Patient given complete bath. Skin integrity assessed for any changes. Linens changed. Patient repositioned for comfort. Gown changed, right hip opti foam replaced. Safety maintained, will continue to monitor
[2018-10-15] MEDS: METOCLOPRAMIDE HCL 5MG/ml INJ 2ml VIAL IV SCH ×3 (06:14→22:00)
[2018-10-15] MEDS: MEROPENEM 1GM IVPB 100 ML IV SCH ×3 (06:14→19:50)
[2018-10-15] MEDS: VORICONAZOLE IV SCH ×2 (06:30→15:57)
[2018-10-15] MEDS: D5W 5% IV SCH ×2 (06:30→15:57)
--- NOTE | 2018-10-15 07:50 | NUR ---
OPENING NOTE RECEIVED REPORT AND CARE ASSUMED OF PT FROM OANH WATTS
--- NOTE | 2018-10-15 08:10 | NUR ---
PAGED DR. DALLAS REGARDING CHEST CT RESULTS
[2018-10-15] MEDS: LEVOTHYROXINE SODIUM 25 MCG TAB PO SCH (08:44)
--- NOTE | 2018-10-15 08:50 | NUR ---
DR. DALLAS AT BEDSIDE ORDERS RECEIVED
[2018-10-15] MEDS: FAMOTIDINE (10MG/ML) 2ML VL IV SCH ×2 (10:34→22:50)
[2018-10-15] MEDS: INSULIN LANTUS (GLARGINE) 1 /0.01ml (100units/ml) SC SCH (10:34)
[2018-10-15] MEDS: LINEZOLID 600MG/300ML 300 ML IV SCH ×2 (10:35→22:50)
[2018-10-15 10:47] LABS: Ferritin > 1650.0 ng/mL (10-322); Folate (Folic Acid) 9.64 ng/mL (5.38-24)
[2018-10-15 11:33] LABS: Band Neutrophils % (manual) 6; Eosinophils % (manual) 3 (0-7); Lymphocytes % (manual) 3 (10.0-50.0); Metamyelocytes % 1; Monocytes % (manual) 11 (0-12)
--- NOTE | 2018-10-15 12:00 | NUR ---
DR. CAMPA AT BEDSIDE ORDERS RECEIVED
[2018-10-15] MEDS ORDERED: FUROSEMIDE 20 MG/2 ML VIAL IV ONE (12:15)
[2018-10-15] MEDS ORDERED: POTASSIUM EFFERVESENT TAB 25 MEQ GT ONE (12:15)
[2018-10-15] MEDS ORDERED: TPN PER PHARMACY 0 ML IV SCH (12:15)
--- NOTE | 2018-10-15 12:30 | NUR ---
LOW GRADE FEVER COOLING MEASURES INITIATED
[2018-10-15] MEDS: ACYCLOVIR SOD IV SCH (16:31)
[2018-10-15] MEDS: SODIUM CHL 0.9% IV SCH (16:31)
--- NOTE | 2018-10-15 18:00 | NUR ---
BM SMALL SOFT BROWN BM.
--- NOTE | 2018-10-15 19:15 | NUR ---
CLOSING NOTE SHIFT REPORT GIVEN AND CARE ENDORSED TO OANH WATTS
[2018-10-15] MEDS ORDERED: TPN PER PHARMACY IV NR ×10 (20:00)
[2018-10-16] VITALS (102 sets, daily range): BP systolic 106–186; BP diastolic 53–93
[2018-10-16] MEDS: ACCU-CHEK COMFORT CURVE STRIP VI SCH ×5 (00:30→23:26)
[2018-10-16] MEDS: InsuLIN REG 1unit/0.01ml Soln (100units/ml) SC SCH ×5 (00:40→23:33)
[2018-10-16] MEDS: ALBUTEROL SULF 2.5 MG/0.5ML(0.5%) NEB SOLN NEB SCH ×4 (04:28→18:27)
[2018-10-16] MEDS: IPRATROPIUM BROM 0.5 MG/2.5ML INH SOL NEB SCH ×4 (04:28→18:27)
[2018-10-16 04:30] LABS: Hematocrit 23.2 % (41.0-53.0)
[2018-10-16 04:32] LABS: Hemoglobin 7.8 g/dL (13.5-17.5); Mean Corpuscular Hemoglobin 31.3 pg (28.0-32.0); Mean Corpuscular Hgb Conc. 33.7 g/dL (32.0-36.0); Platelet Count (auto) 350 10^3/uL (140-450); Red Cell Distribution Width 17.5 % (11.8-14.3); White Blood Cell 20.6 10^3/uL (4.4-10.8)
[2018-10-16 04:38] LABS: Basophils % (manual) 0 (0.0-2.0); Blast Cells 0; Metamyelocytes % 0; Myelocytes % 0; Promyelocytes % 0; Reactive Lymphocytes 0
[2018-10-16 04:42] LABS: Albumin 1.5 g/dL (3.4-5.0); Magnesium 1.9 mg/dL (1.6-2.6)
[2018-10-16 04:50] LABS: Bilirubin, Total 0.4 mg/dL (0.2-1.0); Total Protein 5.4 g/dL (6.4-8.2)
[2018-10-16] MEDS: MEROPENEM 1GM IVPB 100 ML IV SCH ×3 (04:54→20:07)
[2018-10-16] MEDS: D5W 5% IV SCH ×2 (04:55→16:08)
[2018-10-16] MEDS: VORICONAZOLE IV SCH ×2 (04:55→16:08)
[2018-10-16 05:30] LABS: Phosphorus 2.7 mg/dL (2.5-4.90)
[2018-10-16] MEDS: METOCLOPRAMIDE HCL 5MG/ml INJ 2ml VIAL IV SCH ×3 (06:00→22:00)
[2018-10-16 06:07] LABS: Band Neutrophils % (manual) 10; Lymphocytes % (manual) 5 (10.0-50.0); Monocytes % (manual) 6 (0-12)
[2018-10-16 06:08] LABS: Eosinophils % (manual) 2 (0-7)
--- NOTE | 2018-10-16 08:09 | NUR ---
INTAKE AND OUTPUT INTAKE 150 URINE OUTPUT 240 Addendum: 10/16/18 at 0810 by Mirna Stewart RN INCORRECT PATIENT
--- NOTE | 2018-10-16 08:12 | NUR ---
FAMILY AND SON AT BEDSIDE. UPDATED ON PATIENT STATUS. ALL QUESTIONS AND CONCERNS ADDRESSED AT THIS TIME
[2018-10-16] MEDS: LEVOTHYROXINE SODIUM 25 MCG TAB PO SCH (08:17)
[2018-10-16] MEDS: LINEZOLID 600MG/300ML 300 ML IV SCH ×2 (09:38→22:28)
[2018-10-16] MEDS: FAMOTIDINE (10MG/ML) 2ML VL IV SCH ×2 (09:38→22:27)
[2018-10-16] MEDS: INSULIN LANTUS (GLARGINE) 1 /0.01ml (100units/ml) SC SCH (09:38)
[2018-10-16] MEDS: ACETAMINOPHEN 650 mg PER 20 mL UD GT PRN (10:13)
[2018-10-16] MEDS: LABETALOL HCL 5 MG/ML ML 20ML VIAL IV PRN (10:14)
--- NOTE | 2018-10-16 12:19 | NUR ---
DR. ROTHMAN PAGED AWAITING CALLBACK
[2018-10-16] MEDS ORDERED: LABETALOL HCL 5 MG/ML ML 20ML VIAL IV ONE (12:45)
[2018-10-16] MEDS ORDERED: POTASSIUM CHL 20MEQ/100ML 100 ML IV ONE (13:00)
[2018-10-16] MEDS ORDERED: FUROSEMIDE 20 MG/2 ML VIAL IV ONE (13:00)
[2018-10-16] MEDS: PROPOFOL 100 ML IV SCH ×2 (13:07→17:46)
--- NOTE | 2018-10-16 13:50 | NUR ---
DR. ANGELES AT BEDSIDE
--- NOTE | 2018-10-16 14:15 | NUR ---
DR. FARAH AT BEDSIDE
--- NOTE | 2018-10-16 14:41 | NUR ---
BOWEL MOVEMENT PATIENT HAD LARGE BROWN SOFT BOWEL MOVEMENT, PARTIAL LINEN CHANGE PERFORMED AT THIS TIME
[2018-10-16] MEDS: SODIUM CHL 0.9% IV SCH (15:04)
[2018-10-16] MEDS: ACYCLOVIR SOD IV SCH (15:04)
[2018-10-16 15:15] LABS: INR 0.99 (0.9-1.15); Partial Thromboplastin Time 30.2 sec (23.64-32.05)
[2018-10-16] MEDS: fentaNYL Drip 2500mCg/250mlNS 250 ML IV SCH (17:47)
--- NOTE | 2018-10-16 18:08 | NUR ---
FAMILY UPDATED ON PATIENT STATUS. ALL QUESTIONS AND CONCERNS ADDRESSED AT THIS TIME
--- NOTE | 2018-10-16 19:14 | NUR ---
REPORT GIVEN TO OANH WATTS TO ASSUME CARE
[2018-10-16] MEDS ORDERED: PPN PER PHARMACY IV NR ×10 (20:00)
--- NOTE | 2018-10-16 20:30 | NUR ---
CALL RECEIVED FROM SPOUSE SPOUSE WAS GIVEN UPDATED INFORMATION REGARDING PATIENTS CURRENT STATUS, ALL QUESTIONS AND CONCERNS WERE ADDRESSED. SPOUSE UPDATED ON CURRENT PLAN OF CARE
[2018-10-17] VITALS (106 sets, daily range): BP systolic 118–169; BP diastolic 53–86
--- NOTE | 2018-10-17 | NUR ---
Patient bathe/linen change/WOUND CARE Patient given complete bath. Skin integrity assessed for any changes. Linens changed. Patient repositioned for comfort. Gown change. Patient tolerated well. Opti foam changed right groin, left lower forearm and right hip. areas were cleaned with normal saline. Patient tolerated well.
--- NOTE | 2018-10-17 | NUR ---
RT AT BEDSIDE
--- NOTE | 2018-10-17 | NUR ---
ELIMINATION PATIENT HAD A LARGE BM, LIQUID CONSISTENCY, BROWN IN COLOR NO S/S OF C-DIFF AT THIS TIME
[2018-10-17] MEDS: IPRATROPIUM BROM 0.5 MG/2.5ML INH SOL NEB SCH ×5 (00:22→23:58)
[2018-10-17] MEDS: ALBUTEROL SULF 2.5 MG/0.5ML(0.5%) NEB SOLN NEB SCH ×5 (00:22→23:58)
[2018-10-17] MEDS: MIDAZOLAM DRIP 50 mg/50mL 50 ML IV SCH (02:02)
--- NOTE | 2018-10-17 03:45 | NUR ---
ELIMINATION PATIENT HAD A LARGE BM, LIQUID CONSISTENCY, BROWN IN COLOR NO S/S OF C-DIFF AT THIS TIME
[2018-10-17] MEDS: MEROPENEM 1GM IVPB 100 ML IV SCH ×3 (04:00→20:04)
--- NOTE | 2018-10-17 04:20 | NUR ---
CALL RECEIVED FROM SPOUSE SPOUSE WAS GIVEN UPDATED INFORMATION REGARDING PATIENTS CURRENT STATUS, ALL QUESTIONS AND CONCERNS WERE ADDRESSED. SPOUSE UPDATED ON CURRENT PLAN OF CARE
[2018-10-17 04:26] LABS: Basophils # (auto) 0.1 uL; Basophils % (auto) 0.3 % (0.0-2.0); Eosinophils # (auto) 0.8 uL; Eosinophils % (auto) 3.3 % (0.0-7.0); Hematocrit 24.2 % (41.0-53.0); Hemoglobin 8.2 g/dL (13.5-17.5); Lymphocytes # (auto) 0.5 uL; Lymphocytes % (auto) 2.2 % (10.0-50.0); Mean Corpuscular Hemoglobin 31.5 pg (28.0-32.0); Mean Corpuscular Volume 92.7 fL (80.0-100.0); Monocytes # (auto) 2.3 uL; Neutrophils # (auto) 19.8 uL; Neutrophils % (auto) 84.2 % (37.0-80.0); Platelet Count (auto) 364 10^3/uL (140-450); Red Blood Cells 2.61 10^6/uL (4.5-5.90); Red Cell Distribution Width 17.3 % (11.8-14.3); White Blood Cell 23.5 10^3/uL (4.4-10.8)
[2018-10-17 04:40] LABS: INR 0.98 (0.9-1.15)
[2018-10-17 04:47] LABS: Albumin 1.4 g/dL (3.4-5.0); BUN/Creatinine Ratio 85.7; Calcium 7.9 mg/dL (8.5-10.1); Potassium 3.6 mmol/L (3.5-5.1)
[2018-10-17 04:49] LABS: Bilirubin, Total 0.5 mg/dL (0.2-1.0); Total Protein 5.7 g/dL (6.4-8.2)
[2018-10-17] MEDS: VORICONAZOLE IV SCH ×2 (04:50→17:47)
[2018-10-17] MEDS: D5W 5% IV SCH ×2 (04:50→17:47)
[2018-10-17 05:25] LABS: Phosphorus 2.9 mg/dL (2.5-4.90)
[2018-10-17] MEDS: METOCLOPRAMIDE HCL 5MG/ml INJ 2ml VIAL IV SCH (06:00)
[2018-10-17] MEDS: ACCU-CHEK COMFORT CURVE STRIP VI SCH ×3 (06:00→17:52)
--- NOTE | 2018-10-17 06:00 | NUR ---
RT AT BEDSIDE
--- NOTE | 2018-10-17 06:00 | NUR ---
ELIMINATION PATIENT HAD A MODERATE SIZED BM, LIQUID CONSISTENCY, BROWN IN COLOR NO S/S OF C-DIFF AT THIS TIME
[2018-10-17] MEDS: LEVOTHYROXINE SODIUM 25 MCG TAB PO SCH (07:00)
[2018-10-17] MEDS: PROPOFOL 100 ML IV SCH ×4 (07:27→23:14)
[2018-10-17] MEDS: InsuLIN REG 1unit/0.01ml Soln (100units/ml) SC SCH ×3 (07:42→17:52)
[2018-10-17] MEDS: FAMOTIDINE (10MG/ML) 2ML VL IV SCH ×2 (09:32→22:16)
[2018-10-17] MEDS: LINEZOLID 600MG/300ML 300 ML IV SCH ×2 (09:33→22:16)
[2018-10-17] MEDS: INSULIN LANTUS (GLARGINE) 1 /0.01ml (100units/ml) SC SCH (09:33)
[2018-10-17] MEDS: LABETALOL HCL 5 MG/ML ML 20ML VIAL IV PRN ×2 (09:34→18:58)
--- NOTE | 2018-10-17 10:05 | NUR ---
FAMILY AT BEDSIDE. UPDATED ON PATIENT STATUS. ALL QUESTIONS AND CONCERNS ADDRESSED AT THIS TIME
--- NOTE | 2018-10-17 11:54 | NUR ---
Nutrition Follow-up Notes Wt.: 61.3 kg Pt`s intubated sedated with propofol @ 14.88 ml/hr providing 392 kcals from fats with no family by bedside. per RN pt is NPO on PN support @ 71 ml.hr providing 836 kcals and 90 gm proteins 476 NCP. pt with inadequate PN support as it meets 56-68% kcals however meets 93-125% proteins with propofol on board Est. Needs IBW (72 kg): 6120-3358 kcal (25-30 kcal/kgBW), 72-93 gms pro (1.0-1.3 gms/kgBW r/t severe hypoalb). Will continue to monitor pertinent labs and reassess nutrient need prn Labs: GLU 121 H, CA 7.9 L, ALB 1.4 L. Skin: Atilio scale 12, high risk pt with multiple skin tears and scabs per RN doc GI: Pt had 3 BM today per documentation writer. PES: Altered nutrition related lab values r/t acute/chronic medical condition aeb elev BUN A1C, hypercapnia, hyperglycemia, Increased nutrient needs r/t current chronic medical condition aeb pt`s with cancer underwt and NPO intubated with severe hypoalb Will continue to monitor NPO status, PN tolerance, skin status, pertinent labs and weight trend. F/u in 2-3 days. Rec.: 1.) advance diet as medically feasible. 2) advance PN support to meet > 75% of needs if pt unable to tolerate EN. 3) consider to resume EN support with Glucerna @ 70 ml./hr per MD approval as pt tolerates. 3) consider prostat 1 packet bid. 4) consider MVI.C bid. 5) refer to CDE on DC. 6) continue current plan of care
[2018-10-17] MEDS ORDERED: SODIUM FERR GLUC 62.5MG/5ML 125 MG in SODIUM CHL 0.9% 100 ML IV SCH (12:00)
--- NOTE | 2018-10-17 12:16 | NUR ---
DR. ANGELES AT BEDSIDE
[2018-10-17] MEDS ORDERED: LIDOCAINE VISCOUS 2% 15ML UD ONE (12:36)
[2018-10-17] MEDS ORDERED: NALOXONE HCL 0.4 MG/ML VIAL ONE (12:36)
[2018-10-17] MEDS ORDERED: FLUMAZENIL 0.1 MG/ML INJ 10ML MDV IV ONE (12:36)
[2018-10-17] MEDS ORDERED: SODIUM CHLORIDE LOCK 0 ML ONE (12:36)
[2018-10-17] MEDS ORDERED: MIDAZOLAM HCL 5 MG/ML-1ML VIAL ONE (12:37)
[2018-10-17] MEDS ORDERED: fentaNYL CITRATE 100 MCG/2 ML VL ONE (12:37)
[2018-10-17] MEDS ORDERED: diphenhdrAMINE HCL 50 MG/1 ML VL ONE (12:37)
--- NOTE | 2018-10-17 12:51 | NUR ---
OR TEAM AT BEDSIDE FOR PEG TUBE PLACEMENT
--- NOTE | 2018-10-17 15:12 | NUR ---
PICC NURSE AT BEDSIDE
[2018-10-17] MEDS: SODIUM CHL 0.9% IV SCH (16:00)
[2018-10-17] MEDS: ACYCLOVIR SOD IV SCH (16:00)
--- NOTE | 2018-10-17 16:09 | NUR ---
PICC Line Placement Patient's educated on need for PICC line placement by primary RN and MD. All risks and benefits explained and all questions and concerns addressed prior to procedure. Noted past medical history and allergies with no contraindications. INR and Plt counts within acceptable range. 5 fr PICC line inserted via left basilic vein using [employer] US and Tip Location System. Sterile technique with maximum barrier precautions utilized. Blood return obtained from each of the three lumens and each flushed easily with NS using proper technique. PICC secured with Stat-lock; biodisc and occlusive dressing applied. Stat portable chest x-ray obtained for PICC tip placement. *Baseline Arm Circumference 23 cm. *Internal Length 50 cm. *External Length 2 cm. *PICC lot #[id number]. Note: IntroducerGino RN. This nurse assisted with orientation, orders and documentation. EBL 0.5mls.
--- NOTE | 2018-10-17 17:30 | NUR ---
WOUND CARE NOTE: Wound care in to see patient for reevaluation of wounds. Patient continue resting in ICU bed in Rm. 107. He's still intubated and mechanically ventilated. Patient appears to be in no pain using Malloy Rebollar Faces Pain Scale. His Atilio score is 12. Patient's L medial forearm skin tear (2.5x2.5cm) and Rt upper arm skin tear (7x5cm and 8x5cm) remain the same, red with pink patsy wound. Patient has bilateral arm edema and his Rt arm is more edematous in comparison to L arm. His Rt groin still display 1x2.5cm open partial thickness wound from open blister, Rt thigh, lateral hip, Rt lower leg, R posterior upper buttocks/hip area has multi open and scabbed lesions reports from shingles. Cleansed multi skin tears and changed the dressing as ordered. Patient's medial sacrum noted with 1.2x1.5cm open partial thickness wound appears to be from dry peeling hyperpigmented sacral skin. His L posterior upper thigh/lower buttock has 4x3.5cm open partial thickness wound, dark red, clean wound bed, appears to be open blister. R posterior upper thigh noted with 1x1.5cm open partial thickness wound.Sacral and upper posterior thigh wounds has bright and dark red patsy wound, with minimal serous drainage noted,no odor noted. It is consistent with Stage 2 pressure injuries. Pasty care given, applied Z Guard cream to sacrum and posterior thigh wounds. Covered wounds with Opti foam sacral/gentle dressing. 0.5x 3cm dry intact scab noted to patient's L lateral ear pinna, surrounding skin is pink, clean and dry,left open to air. Photograph of mentioned wounds are taken for reference. Repositioned patient for comfort on his back, redistributed pressure points with pillows. Patient tolerated well. STEFANIE Carmona at bedside. RECOMMENDATIONS: Air mattress (ordered), BID/PRN cleaning and application of Z Guard cream to medial sacrum and posterior upper thigh wounds per MD order, Continuation of all wound care orders prescribed by MD, continue with skin/wound plan of care, continue monitoring by wound care while patient is hospitalized. Addendum: 10/17/18 at 1843 by Jamee Granger RN Amended: Links added.
--- NOTE | 2018-10-17 17:47 | NUR ---
AIR MATTRESS: Ordered air mattress, ETA [id number] Ref# [id number]. Call [place] Rom at if needed to follow up or any changes Addendum: 10/17/18 at 1748 by Jamee Granger RN Amended: Links added.
--- NOTE | 2018-10-17 18:10 | NUR ---
Respiratory note: INCREASED FIO2 TO 40% DUE TO LOW SPO2, RN KELLY AWARE. WILL CONTINUE TO MONITOR.
--- NOTE | 2018-10-17 19:00 | NUR ---
OPENING NOTE ASSUMED CARE OF PT AT THIS TIME. REPORT RECEIVED FROM DAY SHIFT RN. POC REVIEWED. HEAD TO TOE ASSESSMENT COMPLETE, SEE INTERVENTION SPREADSHEET FOR COMPLETE DETAILS. RECEIVED PT ON VENTILATOR WITH SEDATION. VSS. PT ON ISO FOR SHINGLE. RECEIVED PT S/P PEG TUBE PLACEMENT, NOT TO BE USED AT THIS TIME. PICC LINE IN PLACE, ASYMPTOMATIC. SEE WOUND INTERVENTION FOR SKIN ASSESSMENT. SUCTION AND BVM AT BEDSIDE. BED LOCKED AND IN LOWEST POSITION, SAFETY PRECAUTIONS IN PLACE. WILL MONITOR PT CAREFULLY.
[2018-10-17] MEDS ORDERED: TPN PER PHARMACY IV NR ×10 (20:00)
[2018-10-17] MEDS: SODIUM CHLOR 0.9% PF (SALINE LOCK) 10ML VIAL/SYR IV SCH (22:16)
--- NOTE | 2018-10-17 22:17 | NUR ---
ELIMINATION PT HAD VERY LARGE, SOFT BM. PT CLEANED AND REPOSITIONED. PT TOLERATED WELL.
[2018-10-18] VITALS (102 sets, daily range): BP systolic 103–165; BP diastolic 50–86
[2018-10-18] MEDS: fentaNYL Drip 2500mCg/250mlNS 250 ML IV SCH ×2 (01:22→18:01)
[2018-10-18] MEDS: MIDAZOLAM DRIP 50 mg/50mL 50 ML IV SCH ×2 (02:02→20:58)
--- NOTE | 2018-10-18 03:26 | NUR ---
BED BATH PARTIAL LINEN CHANGE. PT TOLERATED WELL. VSS. PT HAD SMALL BM. SEVERAL WOUND DRESSINGS CHANGED AT THIS TIME. PT REPOSITIONED FOR SAFETY AND COMFORT. SUCTION TUBING AND CANISTERS CHANGED AT THIS TIME. WILL CONTINUE WITH CARE.
--- NOTE | 2018-10-18 03:47 | NUR ---
FAMILY UPDATE OF PT CALLED FOR UPDATE. PW PROVIDED. ALL QUESTIONS AND CONCERNS ADDRESSED AT THIS TIME.
[2018-10-18] MEDS: MEROPENEM 1GM IVPB 100 ML IV SCH ×3 (03:51→19:48)
[2018-10-18 04:37] LABS: Hematocrit 23.4 % (41.0-53.0); Hemoglobin 8.1 g/dL (13.5-17.5); Mean Corpuscular Hemoglobin 32.2 pg (28.0-32.0); Mean Corpuscular Hgb Conc. 34.4 g/dL (32.0-36.0); Mean Corpuscular Volume 93.4 fL (80.0-100.0); Platelet Count (auto) 371 10^3/uL (140-450); Red Cell Distribution Width 17.8 % (11.8-14.3); White Blood Cell 22.8 10^3/uL (4.4-10.8)
[2018-10-18 04:59] LABS: Basophils % (manual) 0 (0.0-2.0); Metamyelocytes % 0
[2018-10-18] MEDS: LABETALOL HCL 5 MG/ML ML 20ML VIAL IV PRN (04:59)
[2018-10-18 05:00] LABS: Blast Cells 0; Myelocytes % 0; Promyelocytes % 0; Reactive Lymphocytes 0
[2018-10-18] MEDS: VORICONAZOLE IV SCH ×2 (05:00→17:17)
[2018-10-18] MEDS: D5W 5% IV SCH ×2 (05:00→17:17)
[2018-10-18 05:05] LABS: Albumin 1.4 g/dL (3.4-5.0); Calcium 7.6 mg/dL (8.5-10.1); Magnesium 2.2 mg/dL (1.6-2.6); Potassium 3.6 mmol/L (3.5-5.1)
[2018-10-18 05:11] LABS: Bilirubin, Total 0.6 mg/dL (0.2-1.0); Phosphorus 3.4 mg/dL (2.5-4.90); Pre Albumin 9.3 mg/dL (20.0-40.0); Total Protein 5.4 g/dL (6.4-8.2)
[2018-10-18] MEDS: IPRATROPIUM BROM 0.5 MG/2.5ML INH SOL NEB SCH ×3 (05:31→17:55)
[2018-10-18] MEDS: ALBUTEROL SULF 2.5 MG/0.5ML(0.5%) NEB SOLN NEB SCH ×3 (05:31→17:55)
[2018-10-18] MEDS: InsuLIN REG 1unit/0.01ml Soln (100units/ml) SC SCH ×4 (06:00→18:02)
[2018-10-18] MEDS: ACCU-CHEK COMFORT CURVE STRIP VI SCH ×4 (06:00→18:02)
[2018-10-18 06:30] LABS: Band Neutrophils % (manual) 3; Eosinophils % (manual) 4 (0-7); Lymphocytes % (manual) 5 (10.0-50.0); Monocytes % (manual) 6 (0-12)
[2018-10-18] MEDS: LEVOTHYROXINE SODIUM 25 MCG TAB PO SCH (06:40)
[2018-10-18] MEDS: PROPOFOL 100 ML IV SCH ×5 (06:48→22:42)
--- NOTE | 2018-10-18 09:01 | NUR ---
FAMILY AT BEDSIDE UPDATED ON PATIENT STATUS. ALL QUESTIONS AND CONCERNS ADDRESSED AT THIS TIME
[2018-10-18] MEDS: SODIUM CHLOR 0.9% PF (SALINE LOCK) 10ML VIAL/SYR IV SCH ×2 (09:22→22:00)
[2018-10-18] MEDS: FAMOTIDINE (10MG/ML) 2ML VL IV SCH ×2 (09:22→22:28)
[2018-10-18] MEDS: LINEZOLID 600MG/300ML 300 ML IV SCH ×2 (09:22→22:28)
[2018-10-18] MEDS: INSULIN LANTUS (GLARGINE) 1 /0.01ml (100units/ml) SC SCH (09:23)
[2018-10-18] MEDS ORDERED: fentaNYL CITRATE 100 MCG/2 ML VL ONE (10:14)
--- NOTE | 2018-10-18 10:24 | NUR ---
HILL ROM BED PATIENT PLACED ON HILL ROM BED. PATIENT TOLERATED WELL
--- NOTE | 2018-10-18 10:28 | NUR ---
ETT ADVANCE BY 2 CM PER XRAY. STEFANIE CHUN MADE AWARE.
--- NOTE | 2018-10-18 12:10 | NUR ---
OR TEAM AT BEDSIDE TO TAKE PATIENT TO OPERATING ROOM
--- NOTE | 2018-10-18 12:15 | NUR ---
PT TRANSPORTED TO OR WITH TRANSPORT VENT WITH NO INCIDENT REPORTED AMBUBAG CONNECTED ON 02 TANK WITH MASK. PT ON PCV AND RESIDENT CARE MANAGER'S MADE AWARE. PT ON SERVICE TEAM LEADER HR 101, SPO2 97%. PT IN NO DISTRESSS WITH GOOD CHEST RISE NOTED. WILL CONTINUE TO MONITOR PT.
--- NOTE | 2018-10-18 12:15 | NUR ---
PATIENT TRANSPORTED TO OR VIA OR TEAM, RT, AND ANESTHESIOLOGIST VIA ACLS GUIDELINES
[2018-10-18] MEDS ORDERED: BUPIVACAINE W/ EPINEPH 0.25% INJ 50ML MDV ONE (12:37)
--- NOTE | 2018-10-18 13:15 | NUR ---
PATIENT BACK FROM OR PLACED ON ALL APPROPRIATE MONITORS, 8.0 SHILEY TRACHEOSTOMY. FAMILY AT BEDSIDE
[2018-10-18] MEDS: IRON SUCROSE COMPLEX 200 MG in SODIUM CHL 0.9% 100 ML IV SCH (13:42)
--- NOTE | 2018-10-18 14:33 | NUR ---
DR. KERR AT BEDSIDE
[2018-10-18] MEDS: SODIUM CHL 0.9% IV SCH (15:22)
[2018-10-18] MEDS: ACYCLOVIR SOD IV SCH (15:22)
--- NOTE | 2018-10-18 18:07 | NUR ---
re-assessment I spoke with patient Susi and informed her that patient has a ss consult for L Tach trach management. Per Susi she wants [facility] contacted first and if they cannot take patient she agrees to [facility]. Mamie KRAUSE 1 will send order. i will follow up tomorrow on acceptance. Addendum: 10/18/18 at 1813 by Gissel MCGUIRE Amended: Links added.
--- NOTE | 2018-10-18 19:00 | NUR ---
OPENING NOTE ASSUMED CARE OF PT AT THIS TIME. REPORT RECEIVED FROM DAY SHIFT RN. POC REVIEWED. HEAD TO TOE ASSESSMENT COMPLETE, SEE INTERVENTION SPREADSHEET FOR COMPLETE DETAILS. RECEIVED PT ON VENTILATOR VIA TRACH PLACEMENT TODAY WITH SEDATION. VSS. PT ON ISO FOR SHINGLES. RECEIVED PT WITH PEG TUBE PLACEMENT,OK TO USE AT THIS TIME. PICC LINE IN PLACE, ASYMPTOMATIC. SEE WOUND INTERVENTION FOR SKIN ASSESSMENT. SUCTION AND BVM AT BEDSIDE. BED LOCKED AND IN LOWEST POSITION, SAFETY PRECAUTIONS IN PLACE. WILL MONITOR PT CAREFULLY.
--- NOTE | 2018-10-18 19:08 | NUR ---
REPORT GIVEN TO DANIELE WATTS TO ASSUME CARE
[2018-10-18] MEDS ORDERED: TPN PER PHARMACY IV NR ×10 (20:00)
--- NOTE | 2018-10-18 20:50 | NUR ---
COOLING MEASURES RECTAL TEMP 99.5. COOLING MEASURES INITIATED.
--- NOTE | 2018-10-18 21:11 | NUR ---
SEDATION ADDITIONAL SEDATION PROVIDED FOR PT D/T NON COMPLIANCE WITH VENTILATOR. WILL ASSESS FOR EFFECTIVENESS
--- NOTE | 2018-10-18 23:07 | NUR ---
TEMP REASSESS 97.7 RECTALLY
[2018-10-19] VITALS (107 sets, daily range): BP systolic 97–133; BP diastolic 43–76
[2018-10-19] MEDS: InsuLIN REG 1unit/0.01ml Soln (100units/ml) SC SCH ×4 (00:10→17:34)
[2018-10-19] MEDS: ACCU-CHEK COMFORT CURVE STRIP VI SCH ×4 (00:10→17:34)
[2018-10-19] MEDS: IPRATROPIUM BROM 0.5 MG/2.5ML INH SOL NEB SCH ×4 (00:21→17:54)
[2018-10-19] MEDS: ALBUTEROL SULF 2.5 MG/0.5ML(0.5%) NEB SOLN NEB SCH ×4 (00:21→17:54)
--- NOTE | 2018-10-19 00:50 | NUR ---
Respiratory note: TRACH CARE DONE, UNEVENTFUL. AREA AROUND TRACH CLEANED AND DRIED USING STERILE TECHNIQUE. CUFF PRESSURE CHECKED. DRAINING AND REDNESS NOTED FROM TRACH SITE. SUTURES INTACT, TRACH TIES SECURED AND ASSESSED, NO SKIN BREAKDOWN NOTED AROUND TRACH SITE OR TRACH TIES. EXTRA TRACH, OBTURATOR, AMBU BAG, AND MASK AT BEDSIDE. WILL CONTINUE TO MONITOR.
[2018-10-19] MEDS: MEROPENEM 1GM IVPB 100 ML IV SCH ×3 (03:46→19:55)
--- NOTE | 2018-10-19 03:59 | NUR ---
FAMILY UPDATE OF PAT CALLED. PW PROVIDED. ALL QUESTIONS ADDRESSED AT THIS TIME.
[2018-10-19 04:19] LABS: Hemoglobin 7.5 g/dL (13.5-17.5)
[2018-10-19 04:23] LABS: Mean Corpuscular Hemoglobin 30.8 pg (28.0-32.0); Mean Corpuscular Hgb Conc. 32.4 g/dL (32.0-36.0); Mean Corpuscular Volume 95.1 fL (80.0-100.0); Platelet Count (auto) 362 10^3/uL (140-450); Red Blood Cells 2.42 10^6/uL (4.5-5.90); Red Cell Distribution Width 17.6 % (11.8-14.3)
[2018-10-19 04:41] LABS: Albumin 1.3 g/dL (3.4-5.0); Calcium 7.6 mg/dL (8.5-10.1); Magnesium 2.2 mg/dL (1.6-2.6); Potassium 3.6 mmol/L (3.5-5.1)
[2018-10-19 04:45] LABS: Basophils % (manual) 0 (0.0-2.0); Blast Cells 0; Metamyelocytes % 0; Myelocytes % 0; Promyelocytes % 0; Reactive Lymphocytes 0
[2018-10-19 04:46] LABS: BUN/Creatinine Ratio 61.9; Bilirubin, Total 0.7 mg/dL (0.2-1.0); Phosphorus 3.1 mg/dL (2.5-4.90)
--- NOTE | 2018-10-19 05:11 | NUR ---
BATHING/LINEN CHANGE PT HAS SMEAR OF BM. PT CLEANED AND REPOSITIONED, PT TOLERATED WELL. WILL CONTINUE WITH CARE.
[2018-10-19] MEDS: VORICONAZOLE IV SCH ×2 (05:17→16:55)
[2018-10-19] MEDS: D5W 5% IV SCH ×2 (05:17→16:55)
[2018-10-19] MEDS: PROPOFOL 100 ML IV SCH ×4 (05:18→19:48)
[2018-10-19 05:32] LABS: Band Neutrophils % (manual) 7; Eosinophils % (manual) 7 (0-7); Lymphocytes % (manual) 3 (10.0-50.0); Monocytes % (manual) 6 (0-12)
[2018-10-19] MEDS: LEVOTHYROXINE SODIUM 25 MCG TAB PO SCH (06:28)
[2018-10-19] MEDS: fentaNYL Drip 2500mCg/250mlNS 250 ML IV SCH ×2 (06:48→17:43)
--- NOTE | 2018-10-19 07:10 | NUR ---
OPENING NOTE RECEIVED REPORT AND ASSUMED CARE OF PT FROM DANIELE WATTS
[2018-10-19] MEDS: MIDAZOLAM DRIP 50 mg/50mL 50 ML IV SCH (08:26)
[2018-10-19] MEDS: FAMOTIDINE (10MG/ML) 2ML VL IV SCH ×2 (09:50→22:29)
[2018-10-19] MEDS: LINEZOLID 600MG/300ML 300 ML IV SCH ×2 (09:51→23:04)
[2018-10-19] MEDS: SODIUM CHLOR 0.9% PF (SALINE LOCK) 10ML VIAL/SYR IV SCH ×2 (09:52→22:30)
[2018-10-19] MEDS: INSULIN LANTUS (GLARGINE) 1 /0.01ml (100units/ml) SC SCH (09:53)
--- NOTE | 2018-10-19 11:10 | NUR ---
DR. STEVE AT BEDSIDE ORDERS RECEIVED
[2018-10-19] MEDS: IRON SUCROSE COMPLEX 200 MG in SODIUM CHL 0.9% 100 ML IV SCH (11:35)
--- NOTE | 2018-10-19 11:42 | NUR ---
Nutrition Follow-up Notes Wt.: 61.3 kg Pt`s s/p trach with no family by bedside. per RN pt is NPO on PN support @ 63 ml.hr providing 1380 kcals and 90 gm proteins 1020 NCP. pt with inadequate PN support as it meets 63-76% kcals however meets 93-125% proteins Est. Needs IBW (72 kg): 8530-6106 kcal (25-30 kcal/kgBW), 72-93 gms pro (1.0-1.3 gms/kgBW r/t severe hypoalb). Will continue to monitor pertinent labs and reassess nutrient need prn Labs: GLU 133 H, ALB 1.3 L, CA 7.6 L. Skin: Atilio scale 9, high risk pt with multiple skin tears and scabs per RN doc GI: Pt had 2 BM today per retail advertising executive. PES: Altered nutrition related lab values r/t acute/chronic medical condition aeb elev BUN A1C, hypercapnia, hyperglycemia, Increased nutrient needs r/t current chronic medical condition aeb pt`s with cancer underwt and NPO intubated with severe hypoalb Will continue to monitor NPO status, PN tolerance, skin status, pertinent labs and weight trend. F/u in 2-3 days. Rec.: 1.) advance diet as medically feasible. 2) advance PN support to meet > 75% of needs if pt unable to tolerate EN. 3) consider to resume EN support with Glucerna @ 70 ml./hr per MD approval as pt tolerates. 3) consider prostat 1 packet bid. 4) consider MVI.C bid. 5) refer to CDE on DC. 6) continue current plan of care
[2018-10-19] MEDS: ACETAMINOPHEN 650 mg PER 20 mL UD GT PRN (15:34)
[2018-10-19] MEDS: ACYCLOVIR SOD IV SCH (16:15)
[2018-10-19] MEDS: SODIUM CHL 0.9% IV SCH (16:15)
--- NOTE | 2018-10-19 17:04 | NUR ---
D/C Planning Per consult for L Tach Trach Management. Per Gissel to fax referral to [facility]. Contacted and faxed medical record to [facility]. Per Tyesha from [facility] they do not do L Tach Trach. Per Chelsea from [facility] she completed her assessment and Osman from [facility] will review for acceptance ) Fax: ). Per Osman from [facility] she will follow up with me on Monday regarding referral. Addendum: 10/19/18 at 1711 by MINNA MEEDLLIN Amended: Links added.
--- NOTE | 2018-10-19 19:05 | NUR ---
CLOSING NOTE SHIFT REPORT GIVEN AND CARE ENDORSED TO LUCERO WATTS
--- NOTE | 2018-10-19 19:30 | NUR ---
OPEN NOTES RECEIVED REPORT FROM STEFANIE CHUNG. PATIENT IS SEDATED WITH PROPOFOL AND FENTANYL. SEDATION WAS ORDERED TO BE WEANED OFF. PATIENT DOES OPEN EYES TO STIMULI. STILL DOES NOT FOLLOW COMMANDS. NO LIMBS MOVEMENT NOTED. WITH TRACHEOSTOMY SHILEY SIZE 8.0 CONNECTED TO MECHANICAL VENT WITH PS MODE FIO2 30%. SUCTIONED - THICK CREAMY SECRETIONS FROM TRACH.NOTED TO HAVE SOME SECRETIONS COMING OUT FROM THE SIDES OF THE TRACH. KEPT ON DROPLET ISOLATION. SHINGLES LESION DRYING UP. SINUS TACHYCARDIA HR 110-115/MIN, BP STABLE. TEMP 99F WITH PEG - TO START TUBE FEEDING TONIGHT. WITH IV TPN TO BE WEANED WHEN FEEDING TOLERATED. NOTED MULTIPLE SKIN TEARS,SCABS AND LESIONS. ON SPECIALTY MATTRESS. REPOSITIONED. ORAL CARE DONE. FULL ASSESSMENT -REFER INTERVENTION
[2018-10-19] MEDS ORDERED: TPN PER PHARMACY IV NR ×10 (20:00)
--- NOTE | 2018-10-19 22:30 | NUR ---
TUBE FEEDING STARTED TUBE FEEDING OF GLUCERNA AT 10ML/HR VIA PEG TUBE WILL CONTINUE TO MONITOR
[2018-10-19] MEDS: Glucerna 1.2 Cal 1Liter BOTTLE GT SCH (22:37)
[2018-10-20] VITALS (105 sets, daily range): BP systolic 109–176; BP diastolic 55–103
--- NOTE | 2018-10-20 00:05 | NUR ---
TEMP 99.7 RECTALLY COOLING MEASURES PROVIDED
[2018-10-20] MEDS: ALBUTEROL SULF 2.5 MG/0.5ML(0.5%) NEB SOLN NEB SCH ×5 (00:11→18:06)
[2018-10-20] MEDS: IPRATROPIUM BROM 0.5 MG/2.5ML INH SOL NEB SCH ×4 (00:11→18:07)
[2018-10-20] MEDS: InsuLIN REG 1unit/0.01ml Soln (100units/ml) SC SCH ×4 (00:15→17:46)
--- NOTE | 2018-10-20 01:50 | NUR ---
TUBE FEEDING HELD PATIENT'S RESIDUAL = 50MLS TUBE FEEDING ONLY RUNNING AT 10ML/HR SINCE 2230HRS TUBE FEEDING HELD WILL RE-CHECK LATER
--- NOTE | 2018-10-20 03:00 | NUR ---
HYGIENE/WOUND DRESSING SPONGE BATH DONE. BODY CLEANED WITH CHG WIPES AFTERWARDS. LINENS CHANGED. SKIN ASSESSED- WOUND DRESSING CHANGED. FOOT SPLINT REMOVED - DTI NOTED AT RIGHT ANKLE AND LEFT FOOT. PICTURES TAKEN. DTI COVERED WITH OPTIFOAM. FOOT SPLINT NOT PLACE YET. WILL LET THE LEGS REST FOR AWHILE
[2018-10-20] MEDS: MEROPENEM 1GM IVPB 100 ML IV SCH ×3 (03:35→20:09)
[2018-10-20] MEDS: PROPOFOL 100 ML IV SCH ×3 (03:54→17:08)
[2018-10-20 04:08] LABS: Hematocrit 24.8 % (41.0-53.0); Hemoglobin 8.1 g/dL (13.5-17.5); Mean Corpuscular Hgb Conc. 32.9 g/dL (32.0-36.0); Mean Corpuscular Volume 94.4 fL (80.0-100.0); Platelet Count (auto) 394 10^3/uL (140-450); Red Blood Cells 2.62 10^6/uL (4.5-5.90); Red Cell Distribution Width 17.8 % (11.8-14.3)
--- NOTE | 2018-10-20 04:08 | NUR ---
FAMILY CALLED TALKED TO PATIENT'S OVER THE PHONE. CORRECT PASSWORD WAS OBTAINED. UPDATED HER OF PATIENT'S CONDITION. ALL QUESTIONS ANSWERED. VERBALIZED UNDERSTANDING
[2018-10-20 04:12] LABS: White Blood Cell 30.4 10^3/uL (4.4-10.8)
[2018-10-20 04:13] LABS: Basophils % (manual) 0 (0.0-2.0); Blast Cells 0; Metamyelocytes % 0; Myelocytes % 0; Promyelocytes % 0; Reactive Lymphocytes 0
[2018-10-20 04:18] LABS: Albumin 1.4 g/dL (3.4-5.0); Calcium 7.7 mg/dL (8.5-10.1); Magnesium 2.1 mg/dL (1.6-2.6); Potassium 4.1 mmol/L (3.5-5.1)
[2018-10-20 04:21] LABS: Bilirubin, Total 0.6 mg/dL (0.2-1.0); Phosphorus 3.2 mg/dL (2.5-4.90); Total Protein 5.4 g/dL (6.4-8.2)
--- NOTE | 2018-10-20 05:10 | NUR ---
HOSPITALIST PAGED FOR CRITICAL LAB RESULT
[2018-10-20 05:25] LABS: Band Neutrophils % (manual) 11; Eosinophils % (manual) 4 (0-7); Lymphocytes % (manual) 6 (10.0-50.0); Monocytes % (manual) 4 (0-12)
[2018-10-20] MEDS: ACCU-CHEK COMFORT CURVE STRIP VI SCH ×4 (05:50→17:47)
[2018-10-20] MEDS: fentaNYL Drip 2500mCg/250mlNS 250 ML IV SCH ×2 (05:57→17:11)
[2018-10-20] MEDS: VORICONAZOLE IV SCH ×2 (06:02→16:57)
[2018-10-20] MEDS: D5W 5% IV SCH ×2 (06:02→16:57)
--- NOTE | 2018-10-20 06:35 | NUR ---
HOSPITALIST RE-PAGED
[2018-10-20] MEDS: LEVOTHYROXINE SODIUM 25 MCG TAB PO SCH (07:00)
--- NOTE | 2018-10-20 07:10 | NUR ---
OPENING NOTE REPORT GIVE BACK AND ASSUMED CARE OF PT FROM LUCERO WATTS
--- NOTE | 2018-10-20 07:10 | NUR ---
REPORT REPORT GIVEN TO STEFANIE CHUNG INFORMED THAT HOSPITALIST HASN'T CALLED BACK CRITICAL WBC RESULT - TO ASK IF NEEDS RE-CULTURE
--- NOTE | 2018-10-20 08:10 | NUR ---
PT HAS HIGH RESIDUAL THROUGH PEG >60ML. NOT TOLERATING TUBE FEEDING. WILL CONTINUE TPN AND REPORT TO PHYSICIAN
[2018-10-20] MEDS: ACETAMINOPHEN 650 mg PER 20 mL UD GT PRN (08:56)
[2018-10-20] MEDS: LINEZOLID 600MG/300ML 300 ML IV SCH ×2 (09:07→21:46)
--- NOTE | 2018-10-20 09:40 | NUR ---
DR. BOSWELL AT BEDSIDE SPOKE WITH AT BEDSIDE. UPDATED ON PT STATUS. VERBALIZES UNDERSTANDING OF PLAN AND UPDATE GIVEN. ORDERS RECEIVED.
--- NOTE | 2018-10-20 10:03 | NUR ---
Respiratory note: VENT CHANGE PER DR. BOSWELL, SIMV 10, 500, PEEP OF 5, PSV 8. ABG TO FOLLOW.
[2018-10-20] MEDS ORDERED: METOCLOPRAMIDE HCL 5MG/ml INJ 2ml VIAL ONE (10:09)
[2018-10-20] MEDS: METOCLOPRAMIDE HCL 5MG/ml INJ 2ml VIAL IV SCH ×3 (10:20→21:46)
[2018-10-20] MEDS: FAMOTIDINE (10MG/ML) 2ML VL IV SCH ×2 (10:22→21:45)
[2018-10-20] MEDS: INSULIN LANTUS (GLARGINE) 1 /0.01ml (100units/ml) SC SCH (10:22)
[2018-10-20] MEDS: SODIUM CHLOR 0.9% PF (SALINE LOCK) 10ML VIAL/SYR IV SCH ×2 (10:22→21:46)
[2018-10-20] MEDS: LORazepam 0.5 MG TAB PO SCH ×2 (10:54→21:46)
--- NOTE | 2018-10-20 11:00 | NUR ---
DR. BOSWELL AND DR. STEVE AT BEDSIDE SPOKE WITH AND UPDATED ON PT STATUS AND PLAN. CONSENT SIGNED FOR CT WITH CONTRAST POSSIBLY FOR TODAY AND BRONCHOSCOPY FOR TOMORROW. VERBALIZES UNDERSTANDING OF PLAN, PT STATUS, AND EDUCATION GIVEN. WILL CONTINUE TO MONITOR
[2018-10-20] MEDS: IRON SUCROSE COMPLEX 200 MG in SODIUM CHL 0.9% 100 ML IV SCH (12:00)
--- NOTE | 2018-10-20 14:00 | NUR ---
PAGED DR. BOSWELL REGARDING CONTINUOUS ALARMING OF VENT SETTINGS AND ABG RESULTS
--- NOTE | 2018-10-20 14:30 | NUR ---
RESIDUAL >60ml. WILL CHECK AGAIN AFTER 2ND REGLAN ADMINISTRATION.
--- NOTE | 2018-10-20 14:35 | NUR ---
RECEIVED CALL BACK FROM DR. MENG VENT CHANGE ORDERS RECEIVED
--- NOTE | 2018-10-20 14:45 | NUR ---
Respiratory note: PER DR. BELTRAN, PLACE PT BACK ON PREVIOUS SETTINGS ON PCV. PT DID NOT TOLERATE SIMV WELL.
[2018-10-20] MEDS ORDERED: IOHEXOL 300 MG/ML 100ML BOTTLE IJ ONE (15:10)
--- NOTE | 2018-10-20 15:20 | NUR ---
PT TRANSPORTED TO RADIOLOGY FOR CT WITH MICHAEL WATTS, RESPIRATORY THERAPIST, AND TECH.
--- NOTE | 2018-10-20 15:25 | NUR ---
RT Transport Note: Patient transported to {CT} with RN {MICHAEL}. Patient transported to and from procedure on ventilator with previous ordered settings. Patient on court recording monitor with alarms set and audible, ambu-bag/mask connected to 02 tank. Patient returned to room with no adverse reaction noted. Transport completed without incident.
--- NOTE | 2018-10-20 15:45 | NUR ---
PT RETURNED FROM RADIOLOGY. RECEIVED REPORT NO SIGNIFICANT EVENTS WHILE IN RADIOLOGY. WILL CONTINUE TO MONITOR
[2018-10-20 17:40] LABS: Urine Bacteria NONE SEEN /hpf (None Seen); Urine Blood Negative /uL (Negative); Urine Specific Gravity 1.018 (1.001-1.035); Urine WBC <1 /hpf (0 - 3)
--- NOTE | 2018-10-20 18:00 | NUR ---
BM SMALL SOFT BROWN SMEAR BM
--- NOTE | 2018-10-20 18:07 | NUR ---
Respiratory note: ALBUTEROL HELD AT THIS TIME PER RN'S REQUEST, INCREASED HR NOTED. ATROVENT GIVEN IN LINE ON VENT, PT TOLERATED WELL, NO ADVERSE REACTIONS NOTED. WILL CONTINUE TO MONITOR.
--- NOTE | 2018-10-20 18:40 | NUR ---
RESIDUAL 20ML. WILL ADVISE ONCOMING RN TO TRY TUBE FEEDING AGAIN.
--- NOTE | 2018-10-20 19:10 | NUR ---
CLOSING NOTE SHIFT REPORT GIVEN AND CARE ENDORSED TO GURJIT WATTS
[2018-10-20] MEDS ORDERED: TPN PER PHARMACY IV NR ×10 (20:00)
--- NOTE | 2018-10-20 20:00 | NUR ---
ABG DRAWN. FIO2 INCREASED TO 40% FOLLOWING RESULTS. SPUTUM SAMPLE COLLECTED AND SENT TO LAB. STEFANIE CAGLE IS AWARE OF VENT CHANGES AND SPUTUM SAMPLE.
[2018-10-21] VITALS (107 sets, daily range): BP systolic 105–163; BP diastolic 53–105
[2018-10-21] MEDS: IPRATROPIUM BROM 0.5 MG/2.5ML INH SOL NEB SCH ×4 (00:08→19:50)
[2018-10-21] MEDS: ALBUTEROL SULF 2.5 MG/0.5ML(0.5%) NEB SOLN NEB SCH ×4 (00:08→19:50)
[2018-10-21] MEDS: ACCU-CHEK COMFORT CURVE STRIP VI SCH ×5 (00:18→23:45)
--- NOTE | 2018-10-21 00:25 | NUR ---
Respiratory note: TRACH CARE DONE, UNEVENTFUL. AREA AROUND STOMA CLEAN AND DRIED USING STERILE TECHNIQUE. DRESSINGS CHANGED, DRAINAGE FROM TRACH SITE NOTED. TRACH TIES ASSESSED, NO SKIN BREAKDOWN NOTED AROUND NECK OR TRACH. SPARE TRACH, OBTURATOR, AMBU BAG AND MASK AT BEDSIDE.
--- NOTE | 2018-10-21 01:00 | NUR ---
NPO PATIENT IS NPO FOR POSSIBLE BRONCHOSCOPY TODAY.
[2018-10-21] MEDS: MIDAZOLAM DRIP 50 mg/50mL 50 ML IV SCH (02:02)
[2018-10-21] MEDS: PROPOFOL 100 ML IV SCH ×4 (02:53→23:43)
[2018-10-21] MEDS: MEROPENEM 1GM IVPB 100 ML IV SCH ×3 (03:36→20:27)
[2018-10-21] MEDS: VORICONAZOLE IV SCH ×2 (05:29→17:20)
[2018-10-21] MEDS: fentaNYL Drip 2500mCg/250mlNS 250 ML IV SCH ×2 (05:29→17:14)
[2018-10-21] MEDS: D5W 5% IV SCH ×2 (05:29→17:20)
[2018-10-21] MEDS: METOCLOPRAMIDE HCL 5MG/ml INJ 2ml VIAL IV SCH ×3 (05:59→22:15)
[2018-10-21] MEDS: InsuLIN REG 1unit/0.01ml Soln (100units/ml) SC SCH ×5 (06:00→23:45)
[2018-10-21 06:33] LABS: Chloride 97 mmol/L (98-107); Potassium 4.2 mmol/L (3.5-5.1); Sodium 133 mmol/L (136-145)
[2018-10-21] MEDS: LEVOTHYROXINE SODIUM 25 MCG TAB PO SCH (06:39)
[2018-10-21 06:41] LABS: Alanine Aminotransferase 31 U/L (16-61); Albumin 1.3 g/dL (3.4-5.0); Alkaline Phosphatase 297 U/L (45-117); Anion Gap 6 (5-15); Aspartate Aminotransferase 31 U/L (15-37); BUN/Creatinine Ratio 93.3; Bilirubin, Total 0.5 mg/dL (0.2-1.0); Blood Urea Nitrogen 14 mg/dL (7-18); Calcium 7.8 mg/dL (8.5-10.1); Carbon Dioxide 30 mmol/L (21-32); GFR African American 888 mL/min; GFR Non-African American 734 mL/min; Glucose 76 mg/dL (74-106); Magnesium 2.1 mg/dL (1.6-2.6); Phosphorus 3.5 mg/dL (2.5-4.90); Total Protein 5.3 g/dL (6.4-8.2)
--- NOTE | 2018-10-21 07:20 | NUR ---
OPENING NOTE RECEIVED REPORT AND CARE ASSUMED OF PT FROM GURJIT WATTS
--- NOTE | 2018-10-21 07:45 | NUR ---
RESIDUAL HIGH RESIDUAL >60ML GREEN GASTRIC CONTENTS. WILL ADVISE PHYSICIAN.
[2018-10-21 07:54] LABS: Basophils # (auto) 0.1 uL; Monocytes # (auto) 2.3 uL; Nucleated Red Blood Cells % 0.1 %; White Blood Cell 28.1 10^3/uL (4.4-10.8)
[2018-10-21 07:56] LABS: Basophils % (auto) 0.4 % (0.0-2.0); Eosinophils % (auto) 7.3 % (0.0-7.0); Hematocrit 24.3 % (41.0-53.0); Lymphocytes # (auto) 1.1 uL; Lymphocytes % (auto) 3.8 % (10.0-50.0); Mean Corpuscular Hemoglobin 31.5 pg (28.0-32.0); Mean Corpuscular Hgb Conc. 32.9 g/dL (32.0-36.0); Mean Corpuscular Volume 95.7 fL (80.0-100.0); Monocytes % (auto) 8.2 % (0.0-12.0); Neutrophils # (auto) 22.6 uL; Neutrophils % (auto) 80.3 % (37.0-80.0); Platelet Count (auto) 408 10^3/uL (140-450); Red Blood Cells 2.54 10^6/uL (4.5-5.90); Red Cell Distribution Width 18.2 % (11.8-14.3)
--- NOTE | 2018-10-21 09:30 | NUR ---
DR. STEVE AT BEDSIDE
[2018-10-21] MEDS: LORazepam 0.5 MG TAB PO SCH ×3 (10:00→22:00)
[2018-10-21] MEDS: SODIUM CHLOR 0.9% PF (SALINE LOCK) 10ML VIAL/SYR IV SCH ×2 (10:25→22:16)
[2018-10-21] MEDS: FAMOTIDINE (10MG/ML) 2ML VL IV SCH ×2 (10:26→22:16)
[2018-10-21] MEDS: LINEZOLID 600MG/300ML 300 ML IV SCH ×2 (10:26→22:16)
[2018-10-21] MEDS ORDERED: GLYCOPYRROLATE 0.2 MG/ML 1ML VIAL ONE (12:04)
[2018-10-21] MEDS ORDERED: LIDOCAINE 2%HCL (LOCAL ANESTH.) INJ 20ML MDV ONE (12:04)
[2018-10-21] MEDS ORDERED: SODIUM CHLORIDE LOCK 0 ML ONE (12:04)
[2018-10-21] MEDS ORDERED: EPINEPHrine HCL 1 MG/1 ML AMP ONE (12:04)
[2018-10-21] MEDS ORDERED: LIDOCAINE HCL 2% TOP JELLY 5ML TOP ONE (12:04)
[2018-10-21] MEDS: INSULIN LANTUS (GLARGINE) 1 /0.01ml (100units/ml) SC SCH (12:08)
--- NOTE | 2018-10-21 13:09 | NUR ---
DR. BOSWELL AT BEDSIDE TO PERFORM BRONCHOSCOPY PROCEDURE. PHYSICIAN AWARE OF PT/PTT/INR. WILL CONTINUE TO MONITOR.
--- NOTE | 2018-10-21 13:30 | NUR ---
BEDSIDE BRONCHOSCOPY COMPLETE PT TOLERATED WELL. NO COMPLICATIONS. WILL CONTINUE TO MONITOR
--- NOTE | 2018-10-21 15:00 | NUR ---
HIGH RESIDUAL PT CONTINUES TO HAVE GREATER THAN 60ML GASTRIC RESIDUAL. GI CONSULT ORDERED.
--- NOTE | 2018-10-21 19:15 | NUR ---
CLOSING NOTE REPORT GIVE BACK AND CARE ENDORSED TO GURJIT WATTS
[2018-10-21] MEDS ORDERED: TPN PER PHARMACY IV NR ×9 (20:00)
--- NOTE | 2018-10-21 20:00 | NUR ---
Patient bathe/linen change Patient given complete chlorhexidine bath. Skin integrity assessed for any changes. Linens changed. Patient repositioned for comfort.
[2018-10-21] MEDS: Glucerna 1.2 Cal 1Liter BOTTLE GT SCH (22:00)
--- NOTE | 2018-10-21 22:00 | NUR ---
Ativan 1 mg po held patient is on propofol 40 mcg/kg/min. pt is on moderate sedation.
[2018-10-21] MEDS: LABETALOL HCL 5 MG/ML ML 20ML VIAL IV PRN (22:15)
[2018-10-22] VITALS (105 sets, daily range): BP systolic 117–189; BP diastolic 48–114
[2018-10-22] MEDS: IPRATROPIUM BROM 0.5 MG/2.5ML INH SOL NEB SCH ×5 (01:09→23:33)
[2018-10-22] MEDS: ALBUTEROL SULF 2.5 MG/0.5ML(0.5%) NEB SOLN NEB SCH ×5 (01:10→23:33)
[2018-10-22] MEDS: MIDAZOLAM DRIP 50 mg/50mL 50 ML IV SCH (02:02)
[2018-10-22] MEDS: LABETALOL HCL 5 MG/ML ML 20ML VIAL IV PRN ×3 (02:15→18:00)
[2018-10-22] MEDS: MEROPENEM 1GM IVPB 100 ML IV SCH ×3 (03:31→20:12)
[2018-10-22] MEDS: fentaNYL Drip 2500mCg/250mlNS 250 ML IV SCH ×2 (04:35→18:22)
[2018-10-22] MEDS: VORICONAZOLE IV SCH (05:24)
[2018-10-22] MEDS: D5W 5% IV SCH (05:24)
[2018-10-22] MEDS: METOCLOPRAMIDE HCL 5MG/ml INJ 2ml VIAL IV SCH ×3 (05:40→22:16)
[2018-10-22] MEDS: ACCU-CHEK COMFORT CURVE STRIP VI SCH ×3 (06:08→18:20)
[2018-10-22] MEDS: InsuLIN REG 1unit/0.01ml Soln (100units/ml) SC SCH ×3 (06:09→18:00)
[2018-10-22] MEDS: LEVOTHYROXINE SODIUM 25 MCG TAB PO SCH (06:38)
[2018-10-22] MEDS: PROPOFOL 100 ML IV SCH (06:39)
[2018-10-22 06:46] LABS: Albumin 1.3 g/dL (3.4-5.0); Calcium 7.8 mg/dL (8.5-10.1); Magnesium 2.3 mg/dL (1.6-2.6); Potassium 4.3 mmol/L (3.5-5.1)
[2018-10-22 06:49] LABS: BUN/Creatinine Ratio 62.5; Bilirubin, Total 0.4 mg/dL (0.2-1.0); Phosphorus 3.7 mg/dL (2.5-4.90); Total Protein 5.2 g/dL (6.4-8.2)
--- NOTE | 2018-10-22 07:45 | NUR ---
OPEN Report received from Odalis WATTS. Care initiated and initial assessment completed. Patient is stable at this time in bed in lowest position with call mcginnis within reach. Patient is on the ventilator and tolerating well. Vital signs are stable. Will continue to monitor.
[2018-10-22 08:39] LABS: Hemoglobin 7.8 g/dL (13.5-17.5)
[2018-10-22 08:40] LABS: Hematocrit 23.9 % (41.0-53.0); Mean Corpuscular Hemoglobin 31.7 pg (28.0-32.0); Mean Corpuscular Hgb Conc. 32.8 g/dL (32.0-36.0); Mean Corpuscular Volume 96.7 fL (80.0-100.0); Platelet Count (auto) 393 10^3/uL (140-450); Red Blood Cells 2.47 10^6/uL (4.5-5.90); Red Cell Distribution Width 18.9 % (11.8-14.3); White Blood Cell 23.8 10^3/uL (4.4-10.8)
[2018-10-22 08:45] LABS: Basophils % (manual) 0 (0.0-2.0); Blast Cells 0; Metamyelocytes % 0; Myelocytes % 0; Promyelocytes % 0; Reactive Lymphocytes 0
--- NOTE | 2018-10-22 08:45 | NUR ---
BEDSIDE Dr. Heredia bedside. No orders received.
[2018-10-22 09:13] LABS: Band Neutrophils % (manual) 2; Eosinophils % (manual) 5 (0-7); Lymphocytes % (manual) 6 (10.0-50.0); Monocytes % (manual) 6 (0-12)
[2018-10-22] MEDS: SODIUM CHLOR 0.9% PF (SALINE LOCK) 10ML VIAL/SYR IV SCH ×2 (10:00→22:16)
[2018-10-22] MEDS ORDERED: ENOXAPARIN SOD 40 MG/0.4 ML SYRINGE SC SCH (10:00)
[2018-10-22] MEDS: LORazepam 0.5 MG TAB PO SCH (10:20)
[2018-10-22] MEDS: FAMOTIDINE (10MG/ML) 2ML VL IV SCH ×2 (10:20→22:16)
[2018-10-22] MEDS: LINEZOLID 600MG/300ML 300 ML IV SCH ×2 (10:20→22:16)
[2018-10-22] MEDS: INSULIN LANTUS (GLARGINE) 1 /0.01ml (100units/ml) SC SCH (10:27)
[2018-10-22] MEDS ORDERED: NITROGLYCERIN 0.4 MG SL TAB SL PRN (12:30)
[2018-10-22] MEDS ORDERED: POTASSIUM CHL 20MEQ/100ML 100 ML IV ONE (12:30)
[2018-10-22] MEDS ORDERED: LACTULOSE 20Gm/30ML SOLN PO PRN (12:30)
[2018-10-22] MEDS ORDERED: FUROSEMIDE 20 MG/2 ML VIAL IV ONE (12:30)
[2018-10-22] MEDS ORDERED: ONDANSETRON HCL 4 MG/2 ML VIAL IV PRN (12:30)
--- NOTE | 2018-10-22 12:40 | NUR ---
BEDSIDE Dr. Duarte bedside. New orders received.
[2018-10-22] MEDS ORDERED: Vital AF 1.2 Cal 1 liter bottle GT SCH (12:45)
--- NOTE | 2018-10-22 12:46 | NUR ---
Nutrition Follow-up Notes Wt.: 63.1 kg Pt`s s/p trach with no family by bedside. per RN pt is NPO on PN support @ 66 ml.hr providing 1585 kcals and 90 gm proteins 1225 NCP. pt with inadequate PN support as it meets 73-88% kcals however meets 93-125% proteins. per RN pt was not able to tolerate EN and per MD needs elemental feeds. RN informed of diet rec per MD approval Est. Needs IBW (72 kg): 7009-4233 kcal (25-30 kcal/kgBW), 72-93 gms pro (1.0-1.3 gms/kgBW r/t severe hypoalb). Will continue to monitor pertinent labs and reassess nutrient need prn Labs: GLU 138 H, ALB 1.3 L, CA 7.8 L. Skin: Atilio scale 10, high risk pt with multiple skin tears and scabs per RN doc GI: Pt had 2 BM 10/18 per circuit breaker mechanic. PES: Altered nutrition related lab values r/t acute/chronic medical condition aeb elev BUN A1C, hypercapnia, hyperglycemia, Increased nutrient needs r/t current chronic medical condition aeb pt`s with cancer underwt and NPO intubated with severe hypoalb Will continue to monitor NPO status, PN tolerance, skin status, pertinent labs and weight trend. F/u in 2-3 days. Rec.: 1.) advance diet as medically feasible. 2) advance PN support to meet > 75% of needs if pt unable to tolerate EN. 3) consider to resume EN support with Vital AF @ 70 ml./hr per MD approval as pt tolerates. 3) consider prostat 1 packet bid. 4) consider MVI.C bid. 5) refer to CDE on DC. 6) continue current plan of care Addendum: 10/22/18 at [address] pt sedated with propofol @ 11.16 ml/hr providing 294 kcals from fats. pt getting 1879 kcals meeting 86-104% kcals
--- NOTE | 2018-10-22 12:48 | NUR ---
Respiratory note: PT PLACED ON T-PIECE TRAIL PER DR. ROTHMAN'S ORDERS. SPO2 94% ON 35% COOL AEROSOL HR 107 RR 22 B/S DIMINISHED. PT TOLERATING PROCEDURE WELL. NO RESPIRATORY DISTRESS NOTED. FAMILY AT BESIDE.
[2018-10-22] MEDS: IRON SUCROSE COMPLEX 200 MG in SODIUM CHL 0.9% 100 ML IV SCH (13:32)
[2018-10-22] MEDS ORDERED: TPN PER PHARMACY IV NR ×9 (20:00)
--- NOTE | 2018-10-22 20:00 | NUR ---
ADMITTED ON 09/27/2018 WITH HYPOGLYCEMIA, CONFUSION, WEAKNESS, PNA, MICHELLE. TRACHEOSTOMY ON 10/18, PEG ON 10/17, BRONCHOSCOPY ON 10/21. DIFFICULTY IN WEANING HIM OFF THE VENTILATOR. ON FENTANYL 150 MCG AND DIPRIVAN 17 MCG. AWAKE. PUPILS ARE 7 AND BRISK. + BLINK, COUGH AND GAG. EYES OPEN , FOCUSES ON YOU. ATTEMPTS TO MOVE ARMS. UNABLE TO BEND THE ARMS OR USE HIS HANDS. ROM DONE TO ARMS AND LEGS. FEEL THAT THEY ARE FLACCID FOR THE MOST PART. ABDOMEN SOFT. NO BM. PEG RESIDUAL 40CC OF DARK GREEN LIQUID. PEG SITE CLEAN. # 8 SHILEY TO VENTILATOR. ON PC VENTILATION WITH AN FIO2 OF 35% AND A PEEP OF 5. RR 25. HR 105. SINUS TACHYCARDIA. RECTAL TEMP 100, ORAL TEMP 99. ALL PULSES PALPABLE. THE SHINGLES ON HIS RIGHT THIGH HAVE SCABBED AND SOME ARE FALLING OFF. LEFT FOREARM: OPEN WOUND WITH FOAM DRESSING. SMALL AMOUNT OF SEROUS ON THE DRESSING. TOP OF LEFT FOOT: SKIN TEAR WITH NO DRNG. FOOT DROP SPLINTS REMOVED. HEELS CHECKED. WOUND ON RIGHT HEEL. RIGHT FOREARM SKIN TEAR. ON TPN. NEW ORDER FOR VITAL AF 1.2 HAS NOT ARRIVED YET. RESIDUAL FROM PEG IS DARK GREEN.
--- NOTE | 2018-10-22 20:00 | NUR ---
CHANGED DIPRIVAN TUBING
[2018-10-22] MEDS: APIXABAN 5 MG TAB PO SCH (22:16)
--- NOTE | 2018-10-22 22:22 | NUR ---
Respiratory note: PT PUT ON T-PIECE TRAIL ON 35% COOL AEROSOL PER DR. ROTHMAN'S ORDERS. SPO2 95%,HR 105 RR 23 B/S DIMINISHED. PT TOLERATING WELL. NO RESPIRATORY DISTRESS NOTED.
--- NOTE | 2018-10-22 22:30 | NUR ---
PLACED ON TPIECE 35%. IN THE FIRST 30 MINUTES THE HR WENT FROM 105-108. O2 SAT WENT FROM 95% TO 91%. RR WENT FROM 25 TO 20. BP STEADY. REPOSITIONED TO HIS RIGHT. TEMP IS COMING DOWN TO 99.7. GOOD URINE OUTPUT. PATIENT IS AWAKE. TRIES TO FOLLOW COMMANDS. TURNS HIS HEAD WHEN YOU ARE TALKING TO HIM IF TO LISTEN. VERY WEAK, AND SEDATED.
--- NOTE | 2018-10-22 23:29 | NUR ---
DOING WELL . RR 18. HR 108. SBP 141. O2 SAT 93%.
--- NOTE | 2018-10-22 23:31 | NUR ---
RT HERE . PLACING HIM BACK ON PC VENTILATION.
[2018-10-22] MEDS: MORPHINE SULF INJ 2 MG/ML SYRINGE 1ML IV PRN (23:52)
--- NOTE | 2018-10-22 23:55 | NUR ---
WHEN PATIENT WENT BACK ON THE VENTILATOR AFTER A ONE HOUR T PIECE TRIAL, HIS HEART RATE WENT UP TO 118, O2 SAT DECREASED TO 92%, RR WENT BACK TO 25 FROM 20. YOU COULD SEE THE FRUSTRATION ON HIS FACE. SBP WENT UP TO 189. TALKED TO THE PATIENT AND TRIED TO GET HIM TO CALM DOWN, HE NODDED HIS HEAD IF HE UNDERSTOOD. BUT HE DID NOT. I INCREASED THE SEDATION SLIGHTLY. EVERYTHING CORRECTED WHEN HE CALMED DOWN.
[2018-10-23] VITALS (88 sets, daily range): BP systolic 128–197; BP diastolic 50–111
--- NOTE | 2018-10-23 00:15 | NUR ---
PICC LINE DRESSING CHANGE. NO IRRITATION AT THE SITE FROM THE TAPE LIKE WHAT HAD HAPPENED TO THE RIGHT UPPER ARM. BIOPATCH APPLIED AND CLEAR DRESSING PLACED OVER THE SITE. LEFT FOREARM DRESSING REMOVED. CIRCULAR OPEN WOUND WITH SEROUS DRNG. WOUND CLEANSER USED AND NEW FOAM DRESSING APPLIED. TOP OF RIGHT FOOT FOAM DRESSING REMOVED. SMALL PRESSURE AREA. CLEANED WITH WOUND CLEANSER AND NEW FOAM DRESSING APPLIED. RIGHT LATERAL HEEL DRESSING REMOVED AND EXPOSED A SMALL CLOSED WOUND. FOAM DRESSING APPLIED. RIGHT UPPER ARM DRESSING REMOVED. THE WOUND IS HEALING NICELY. NO DRNG AT SITE. L SHAPED WOUND. CLEANSED WITH WOUND CLEANSER. HONEY DRESSING APPLIED AND WRAPPED WITH KERLIX. PATIENT IS CALM NOW. TEMP IS COMING DOWN. RR IS 25. TRACH DRESSING REMOVED. A SMALL AMOUNT OF BROWN DRNG AT SITE. NEW DRESSING APPLIED. REPOSITIONED TO BACK. PEG RESIDUAL ONLY 5 CC OF DARK GREEN LIQUID. GLUCERNA STARTED AT 20CC/HR. ACCUCHECK 78.
[2018-10-23] MEDS: MEROPENEM 1GM IVPB 100 ML IV SCH ×3 (04:00→20:00)
[2018-10-23] MEDS: ALBUTEROL SULF 2.5 MG/0.5ML(0.5%) NEB SOLN NEB SCH ×3 (05:44→18:19)
[2018-10-23] MEDS: IPRATROPIUM BROM 0.5 MG/2.5ML INH SOL NEB SCH ×3 (05:44→18:19)
[2018-10-23] MEDS: METOCLOPRAMIDE HCL 5MG/ml INJ 2ml VIAL IV SCH ×3 (06:00→22:34)
[2018-10-23] MEDS: ACCU-CHEK COMFORT CURVE STRIP VI SCH ×4 (06:00→17:55)
[2018-10-23] MEDS: InsuLIN REG 1unit/0.01ml Soln (100units/ml) SC SCH ×4 (06:00→17:55)
[2018-10-23 06:56] LABS: Albumin 1.4 g/dL (3.4-5.0); BUN/Creatinine Ratio 89.5; Bilirubin, Total 0.5 mg/dL (0.2-1.0); Calcium 7.8 mg/dL (8.5-10.1); Magnesium 2.2 mg/dL (1.6-2.6); Phosphorus 3.1 mg/dL (2.5-4.90); Potassium 4.3 mmol/L (3.5-5.1); Total Protein 5.8 g/dL (6.4-8.2)
[2018-10-23] MEDS: LEVOTHYROXINE SODIUM 25 MCG TAB PO SCH (07:00)
--- NOTE | 2018-10-23 07:59 | NUR ---
OPEN Report received from Licha WATTS. Care initiated and initial assessment completed. Patient is on the ventilator. Vital signs are stable at this time. Patient is in bed at this time with bed in lowest position, head elevated, and call light within reach. Patient is able to follow commands like squeezing hands and wiggling toes. Patient also nods head yes or no in reference to questions. Patient aware of plan of care for the day. Will continue to monitor.
--- NOTE | 2018-10-23 09:36 | NUR ---
LTAC order faxed to [email or web address].
[2018-10-23] MEDS: INSULIN LANTUS (GLARGINE) 1 /0.01ml (100units/ml) SC SCH (10:00)
[2018-10-23] MEDS: LINEZOLID 600MG/300ML 300 ML IV SCH ×2 (10:08→22:35)
[2018-10-23] MEDS: FAMOTIDINE (10MG/ML) 2ML VL IV SCH ×2 (10:09→22:34)
[2018-10-23] MEDS: PROPOFOL 100 ML IV SCH (10:09)
[2018-10-23] MEDS: APIXABAN 5 MG TAB PO SCH ×2 (10:09→22:35)
[2018-10-23] MEDS: ACETAMINOPHEN 650 mg PER 20 mL UD GT PRN ×2 (10:09→16:27)
[2018-10-23] MEDS: LABETALOL HCL 5 MG/ML ML 20ML VIAL IV PRN ×3 (10:16→22:34)
[2018-10-23] MEDS: fentaNYL Drip 2500mCg/250mlNS 250 ML IV SCH (10:17)
[2018-10-23 10:23] LABS: Hematocrit 24.4 % (41.0-53.0); Hemoglobin 8.3 g/dL (13.5-17.5); Mean Corpuscular Hemoglobin 32.4 pg (28.0-32.0); Mean Corpuscular Volume 95.4 fL (80.0-100.0); Platelet Count (auto) 375 10^3/uL (140-450); Red Blood Cells 2.56 10^6/uL (4.5-5.90); White Blood Cell 28.1 10^3/uL (4.4-10.8)
[2018-10-23] MEDS: SODIUM CHLOR 0.9% PF (SALINE LOCK) 10ML VIAL/SYR IV SCH ×2 (10:24→22:00)
[2018-10-23 10:25] LABS: Basophils % (manual) 0 (0.0-2.0); Blast Cells 0; Metamyelocytes % 0; Myelocytes % 0; Promyelocytes % 0; Reactive Lymphocytes 0
[2018-10-23 10:29] LABS: Band Neutrophils % (manual) 6; Eosinophils % (manual) 9 (0-7); Lymphocytes % (manual) 2 (10.0-50.0); Monocytes % (manual) 9 (0-12)
[2018-10-23] MEDS: MICAFUNGIN SODIUM 100 MG in SODIUM CHL 0.9% 100 ML IV SCH (10:30)
--- NOTE | 2018-10-23 11:23 | NUR ---
Respiratory note: PLACED PT ON T-PIECE TRIAL PER DR. ROTHMAN'S ORDERS. PT ON COOL AEROSOL T-PIECE 60%, 15L. HR 105, RR 24, POX 92%. BREATH SOUNDS DIMINISHED CRACKLES, SUCTIONED LARGE AMOUNT THICK WHITE SECRETIONS. RN ALEJANDRO AWARE OF CHANGES. FAMILY AT BEDSIDE. WILL CONTINUE TO MONITOR.
--- NOTE | 2018-10-23 11:25 | NUR ---
TRACH T PIECE Respiratory therapist Shivani is with the patient, patient is on T-Piece per Dr. Duarte.
--- NOTE | 2018-10-23 12:21 | NUR ---
Respiratory note: PLACED PT BACK ON VENTILATOR DUE TO DESATS 88-91% ON T-PIECE 70% AND HIGH BLOOD PRESSURE 181/92. PT NOW BACK ON VENTILATOR ON ORDERED SETTINGS, TOLERATING WELL. BREATH SOUNDS DIMINISHED CRACKLES, SUCTIONED SMALL AMOUNT THICK WHITE SECRETIONS. ALARMS SET AND AUDIBLE. NOTIFIED STEFANIE ALLEN OF CHANGES. FAMILY AT BEDSIDE. WILL CONTINUE TO MONITOR.
[2018-10-23] MEDS ORDERED: LISINOPRIL 10 MG TAB PO ONE (14:15)
[2018-10-23] MEDS ORDERED: FUROSEMIDE 20 MG/2 ML VIAL IV ONE (14:15)
[2018-10-23] MEDS ORDERED: POTASSIUM CHL 20MEQ/100ML 100 ML IV ONE (14:15)
--- NOTE | 2018-10-23 14:15 | NUR ---
BEDSIDE Dr. Duarte bedside. New orders received at this time.
--- NOTE | 2018-10-23 16:00 | NUR ---
PHYSICAL THERAPY Physical therapist William is at the bedside working with the patient.
--- NOTE | 2018-10-23 16:30 | NUR ---
FAMILY BEDSIDE Patients son is at the bedside and updated on patients status, all questions addressed.
--- NOTE | 2018-10-23 17:30 | NUR ---
COOLING MEASURES Patient is running elevated temperature. Applied ice packs and fan is directed toward patient. Tylenol given as ordered.
--- NOTE | 2018-10-23 18:40 | NUR ---
Respiratory note: PT PLACED ON T PIECE AT 1819 WITH COOL AEROSOL SET AT 70% 15L. PT IS TOLERATING IT OKAY, HE SEEMS VERY ANXIOUS AND HIS WORK OF BREATHING SEEMS TO BE SLIGHTLY INCREASED. HR 113 28 RR 92% FI02. PT TAKE OFF T PIECE AND PLACED BACK ON THE VENT WITH THE PREVIOUS ORDERED SETTINGS AT THIS TIME. PT'S RESPIRATORY RATE RAISED INTO THE HIGH 40S AND HIS SATURATION BEGAN TO DROP TO 87%. STEFANIE MENDOZA AWARE.
[2018-10-23] MEDS ORDERED: TPN PER PHARMACY IV NR ×9 (20:00)
--- NOTE | 2018-10-23 20:00 | NUR ---
ADMITTED 09/27 WITH CONFUSION, WEAKNESS, DEHYDRATION AND HALLUCINATIONS. INTUBATED IN ZAHIRA AND BROUGHT HERE. OUTBREAK OF SHINGLES IS HEALING. SHINGLE AREA WAS HIS RIGHT THIGH, RIGHT GROIN AND LATERAL HIP. RIGHT NOW THERE ARE A FEW DEEP SCABS LEFT. WHAT HAS FALLEN OFF HAS LEFT A PINK CLOSED WOUND. REMAINS IN ISOLATION. WIDE AWAKE. APPROPRIATE. MOVES HEAD, SHOULDERS, AND HAS A MODERATE OPEN HEARTH HELPER. UNABLE TO LIFT ARMS OFF BED AND UNABLE TO LIFT LEGS OFF BED OR BEND THEM. ORAL CARE: LOOSE TEETH. PULLED OLD SECRETIONS FROM HIS ORAL CAVITY . TONGUE HAS A LIGHT FILM ON THE POSTERIOR ASPECT. TRACHEA MIDLINE. NO DRNG FROM THE SITE. TRACH SUTURED IN PLACE. SUTURE SITE IS SLIGHTLY RED.LUNGS CLEAR. WHITE SECRETIONS FROM THE TRACH. ABDOMEN ROUND AND SOFT. VITAL AF AT 15CC/HR. RESIDUAL 2 CC. INCREASED THE TUBE FEEDING TO 20CC/HR. NO BM. GOOD URINE OUTPUT. WOUNDS: WILLARD, OLD BLISTERED SITE IS HEALING. HAS A HONEY DRESSING OVER IT. LEFT FOREARM: CIRCULAR OPEN WOUND WITH NO DRNG. OLD DRY SCABS ON BOTH KNEES. TOP OF RIGHT FOOT HAS A SMALL CLOSED PRESSURE WOUND WITH A FOAM DRESSING OVER IT. RIGHT HEEL WOUND IS DRY WITH A FOAM DRESSING OVER IT. SACRAL AREA: LARGE AREA WHERE 50% OF THE FIRST LAYER HAS BEEN REMOVED. HONEY FOAM DRESSING OVER IT. NO DRNG. FOOT DROP BOOTS ON. TEMP 98.6. ICE BAGS OFF.FAN ON PATIENT. NSR WITHOUT ECTOPY. SBP COMING DOWN. HE IS BEGINNING TO BE MORE CALM. TRIES TO MOUTH WORDS. FOLLOW COMMANDS. PUPILS LARGE AND BRISK. REPOSITIONED. FLUSHED THE PEG TUBE WITH 30CC OF WATER.
--- NOTE | 2018-10-23 22:00 | NUR ---
SBP GREATER THAN 150 SYSTOLIC. LABETOLOL GIVEN. TPN TITRATED OFF. REPOSITIONED TO HIS LEFT SIDE. VERY RESTLESS. STATED HE WANTED SOME SLEEP. INCREASED THE FENTANYL. LOW RESIDUAL FROM THE GT. CONTINUING TUBE FEEDING. ORAL CARE. NYSTATIN APPLIED ORALLY.
[2018-10-23] MEDS: NYSTATIN (MOUTH-THROAT) 500,000 UNITS/5 ML SUSP MT SCH (22:35)
[2018-10-23] MEDS: GABAPENTIN 300 MG CAP PO SCH (22:35)
--- NOTE | 2018-10-23 23:00 | NUR ---
RESPIRATORY RATE CALMED TO 20-24. HR CAME DOWN TO 96. PATIENT ASLEEP.
[2018-10-24] VITALS (83 sets, daily range): BP systolic 117–182; BP diastolic 52–112
--- NOTE | 2018-10-24 | NUR ---
REPOSITIONED PATIENT. IMMEDIATELY HAD A LARGE EMESIS BETWEEN 350-500CC OF GRITTY COFFEE GROUND GASTRIC SECRETIONS. THE RESIDUAL I JUST CHECKED WAS 1CC OF CREAMY LIQUID. NEW TRACH TIES, TRACH CARE AND DRESSING. ORAL CARE. PATIENT DENIES NAUSEA, PAIN OR DIZZINESS. DENIES PAIN. STOPPED TUBE FEEDING. BLOOD SUGAR WAS 136. I'M NOT GOING TO COVER IT NOW THAT THE TUBE FEED IS OFF AND THE TPN WAS STOPPED AT 2200. BOTH ARMS STILL SWOLLEN. TOOK BOOTS OFF FOR A PERIOD OF TIME. NEUROLOGICALLY UNCHANGED. SUCTIONED TRACH FOR NO SECRETIONS. GREAT COUGH. ALL PULSES PALPABLE. SINUS TACHYCARDIA 106.
[2018-10-24] MEDS: fentaNYL Drip 2500mCg/250mlNS 250 ML IV SCH ×2 (00:10→13:56)
[2018-10-24] MEDS: IPRATROPIUM BROM 0.5 MG/2.5ML INH SOL NEB SCH ×5 (00:12→23:51)
[2018-10-24] MEDS: ALBUTEROL SULF 2.5 MG/0.5ML(0.5%) NEB SOLN NEB SCH ×5 (00:12→23:51)
--- NOTE | 2018-10-24 00:30 | NUR ---
CHG BATH. COMPLETE LINEN CHANGE.
[2018-10-24] MEDS: MEROPENEM 1GM IVPB 100 ML IV SCH ×3 (04:00→20:00)
--- NOTE | 2018-10-24 04:00 | NUR ---
SINUS TACHYCARDIA WITHOUT ECTOPY. PICC LINE HAS NO REDNESS ,SWELLING OR DRNG. LUNGS CLEAR. NO FURTHER EMESIS.
[2018-10-24 04:07] LABS: Hematocrit 22.2 % (41.0-53.0); Hemoglobin 7.8 g/dL (13.5-17.5); Mean Corpuscular Hemoglobin 33.5 pg (28.0-32.0); Mean Corpuscular Hgb Conc. 35.2 g/dL (32.0-36.0); Platelet Count (auto) 317 10^3/uL (140-450); Red Blood Cells 2.34 10^6/uL (4.5-5.90); Red Cell Distribution Width 18.7 % (11.8-14.3); White Blood Cell 24.3 10^3/uL (4.4-10.8)
[2018-10-24 04:13] LABS: Albumin 1.5 g/dL (3.4-5.0); BUN/Creatinine Ratio 73.9; Calcium 7.6 mg/dL (8.5-10.1); Magnesium 1.9 mg/dL (1.6-2.6); Potassium 3.7 mmol/L (3.5-5.1)
[2018-10-24 04:15] LABS: Bilirubin, Total 0.8 mg/dL (0.2-1.0); Phosphorus 2.9 mg/dL (2.5-4.90); Total Protein 5.2 g/dL (6.4-8.2)
[2018-10-24 04:23] LABS: Basophils % (manual) 0 (0.0-2.0); Blast Cells 0; Eosinophils % (manual) 0 (0-7); Metamyelocytes % 0; Myelocytes % 0; Promyelocytes % 0; Reactive Lymphocytes 0
--- NOTE | 2018-10-24 05:30 | NUR ---
INCONTINENT OF PASTY BROWN STOOL. FOAM DRESSING REMOVED FROM THE SACRAL AREA. HONEY APPLIED TO SHEARED SKIN. FOAM DRESSING TO COVER
[2018-10-24] MEDS: InsuLIN REG 1unit/0.01ml Soln (100units/ml) SC SCH ×4 (06:00→18:19)
[2018-10-24 06:12] LABS: Band Neutrophils % (manual) 4; Lymphocytes % (manual) 4 (10.0-50.0)
[2018-10-24 06:13] LABS: Monocytes % (manual) 4 (0-12)
[2018-10-24] MEDS: METOCLOPRAMIDE HCL 5MG/ml INJ 2ml VIAL IV SCH ×3 (06:26→22:16)
[2018-10-24] MEDS: GABAPENTIN 300 MG CAP PO SCH (06:26)
[2018-10-24] MEDS: ACCU-CHEK COMFORT CURVE STRIP VI SCH ×4 (06:27→18:18)
--- NOTE | 2018-10-24 06:36 | NUR ---
RECTAL PROBE 101.1. aXILLARY TEMP 100.0 ORAL 99.2
--- NOTE | 2018-10-24 07:10 | NUR ---
OPENING NOTE RECEIVED REPORT AND ASSUMED CARE OF PATIENT FROM FABIO WATTS
--- NOTE | 2018-10-24 07:30 | NUR ---
COOLING MEASURES INITIATED
--- NOTE | 2018-10-24 07:40 | NUR ---
HIGH RESIDUAL PER REPORT FEEDING TURNED OFF ABOUT 0000 DUE TO EMESIS. PT HAS 50CC GASTRIC RESIDUAL. WILL CONTINUE TO MONITOR
--- NOTE | 2018-10-24 09:50 | NUR ---
Respiratory note: PT STATED ITS HARD TO BREATH AND CANT MAINTAIN SPO2 AND HAS BEEN VOMITING. T-PIECE TRIAL NOT DONE AT THIS TIME. RN AWARE.
[2018-10-24] MEDS: APIXABAN 5 MG TAB PO SCH (10:00)
[2018-10-24] MEDS ORDERED: LISINOPRIL 10 MG TAB PO SCH (10:00)
--- NOTE | 2018-10-24 10:00 | NUR ---
Respiratory note: INCREASED FIO2 TO 60%.
[2018-10-24] MEDS: MICAFUNGIN SODIUM 100 MG in SODIUM CHL 0.9% 100 ML IV SCH (10:25)
[2018-10-24] MEDS: FAMOTIDINE (10MG/ML) 2ML VL IV SCH ×2 (10:26→22:16)
[2018-10-24] MEDS: SODIUM CHLOR 0.9% PF (SALINE LOCK) 10ML VIAL/SYR IV SCH ×2 (10:26→22:00)
[2018-10-24] MEDS: LINEZOLID 600MG/300ML 300 ML IV SCH ×2 (10:26→22:16)
[2018-10-24] MEDS: NYSTATIN (MOUTH-THROAT) 500,000 UNITS/5 ML SUSP MT SCH ×2 (10:26→22:16)
--- NOTE | 2018-10-24 11:30 | NUR ---
DR. CAMPA AT [facility] ORDERS RECEIVED
--- NOTE | 2018-10-24 11:36 | NUR ---
WOUND CARE NOTE: Wound care in to see patient for reevaluation of wounds and skin integrity monitoring. Patient continue resting on air bed in ICU Rm. 107. Patient appears to be in no pain using Malloy Rebollar Faces Pain Scale. His Atilio score is 11. Patient's at bedside. Skin/wound assessment done with the assistance of patient's nurse, STEFANIE Jackson and another nurse, STEFANIE Gaytan. Patient's L medial forearm skin tear remain the same measuring 2.5x1.5cm. Wound bed is pale pink with pink tony wound, scant serous drainage. Rt upper arm skin tear is resolving and dry. His Rt groin still display 1.5 x 1 cm open lesion/open blister, Rt thigh, lateral hip, Rt lower leg, R posterior upper buttocks/hip area has multi open and scabbed lesions reports from shingles. Patient's medial sacrum continue to display 4x3cm pressure injury that has open partial thickness as distal sacral aspect. His L and R posterior upper thigh/lower buttock pressure injury continue to evolve. R posterior thigh wound looks progress to Stage 3 pressure injury measuring 1x 0.8 cm. Wound bed is red with yellow slough, dark red tony wound. R posterior upper thigh pressure injury measuring 3.5x4cm is Unstageable. Wound bed is covered with soft, black and yellow necrotic tissue, tony wound is dark red. Sacral and bilateral posterior upper thigh pressure injuries has minimal serous drainage noted,no odor noted. Cleansed wounds with wound cleanser, applied Z Guard cream to sacrum and Thera honey gel/honey gauze to skin tears, posterior thigh wounds and Covered wounds with Opti foam sacral/gentle dressing per MD order. Patient also developed Stage 1 pressure injury) to L dorsal foot (1x0.5cm) and intact DTI to R posterior ankle/heel area. Staff reported that it is suspected that pressure injury is from bilateral foot plastic boots to prevent foot drop. Patient's at bedside is aware and agree to use [place] foam boots instead. Photograph of mentioned wounds are taken for reference. Patient's Atilio score is still low (Br 11), total protein is low (5.2) albumin is low (1.5), BMI of 20.3kg/m2. Patient is on TPN and Dietary is on board. Repositioned patient for comfort facing his Rt side, redistributed pressure points with pillows. Patient tolerated well. STEFANIE Jackson and patient's at bedside. RECOMMENDATIONS: Continuation of all wound care orders prescribed by MD, continue with skin/wound plan of care, continue monitoring by wound care while patient is hospitalized. Addendum: 10/24/18 at 1821 by Jamee Granger RN Amended: Links added.
[2018-10-24] MEDS ORDERED: TPN PER PHARMACY 0 ML IV SCH (11:45)
--- NOTE | 2018-10-24 12:46 | NUR ---
Respiratory note: PT IS MAINTAINING SPO2. TITRATED FIO2 TO 50%. RN NOTIFY OF CHANGE.
[2018-10-24] MEDS: VORICONAZOLE IV SCH (12:51)
[2018-10-24] MEDS: D5W 5% IV SCH (12:51)
--- NOTE | 2018-10-24 19:05 | NUR ---
CLOSING NOTE SHIFT REPORT GIVE BACK AND CARE ENDORSED TO FABIO WATTS
[2018-10-24] MEDS ORDERED: TPN PER PHARMACY IV NR ×10 (20:00)
--- NOTE | 2018-10-24 20:00 | NUR ---
ADMITTED ON 09/27/2018 WITH HALLUCINATIONS, WEAKNESS, DEHYDRATION, PNA , MICHELLE, AND HYPOGLYCEMIA 48. INTUBATED ON ZAHIRA. HAVE HAD TROUBLE WEANING THIS GENTLEMAN FROM THE VENTILATOR. ANXIETY , HYPERTENSION, AND TACHYPNEA COMING OFF SEDATION HAVE PLAGUED OUR SUCCESS. T PIECE: HE EASILY DESATURATES. TONIGHT WE ARE GIVING HIM A BREAK. SUCTIONED THE BACK OF HIS THROAT FOR NO SECRETIONS. NOTHING SUCTIONED FROM THE 8 SHILEY TRACH. OOZING CLEAR SECRETIONS FROM AROUND THE TRACH. LUNGS CLEAR. ABDOMEN SOFT. ACTIVE BOWEL SOUNDS.OLIVO IN PLACE, DRAINING CLEAR YELLOW LIQUID IN ADEQUATE AMOUNTS. BOTH ARMS CONTINUE TO BE SWOLLEN. RIGHT GREATER THAN LEFT. PICC LINE IN LEFT UPPER ARM WITH CURRENT DRESSING AND BIOPATCH. WOUND CARE CHANGED ALL THE DRESSINGS TODAY. FOOT DROP HARJINDER BOOTS ON PATIENT. FAN ON PATIENT. LOW GRADE FEVER. WATCHING TV. WEAK REMOTE MEDICAL CODER. WEAK MOVEMENT OF ARMS AND LEGS. STRENGTH IS BETTER TODAY. ROM IS BETTER TODAY. UNABLE TO LIFT ARMS OFF BED. ABLE TO BEND LEGS TO APPROXIMATELY 20 DEGREES. FULL MAX TURN WITH 2 RNS. PEG CLAMPED. EMESIS AT MIDNIGHT LAST NIGHT AND 0950 TODAY . TUBE FEEDING OFF AND TPN STARTED. STOPPED ELIQUIS AND RESTARTED LOVENOX. TSH NORMAL.
--- NOTE | 2018-10-24 20:07 | NUR ---
Respiratory note: T-PIECE TRAIL HELD AT THIS TIME. PT IS RESTING IN BED, APPEARS TIRED. DAY SHIFT RT AND RN STATED T-TRIAL WAS HELD DUE TO DESATURATION. RN NOTIFIED OF T-PIECE TRIAL BEING HELD AND SHE AGREED. PT REMAINS ON VENT, WILL CONTINUE TO MONITOR.
[2018-10-24] MEDS ORDERED: VORICONAZOLE INJ 0 MG in D5W 5% 250 ML IV SCH (22:00)
--- NOTE | 2018-10-24 22:00 | NUR ---
REPOSITIONED TO LEFT SIDE. NOTHING SUCTIONED ORALLY OR THROUGH HIS TRACH. ACTIVE BOWEL SOUNDS. ORAL CAVITY CLEAN. LOOSE TEETH. BAND AIDE RIGHT GROIN OVER A SHINGLE LESION. LEFT FOREARM WOUND IS DRAINING SEROUS FLUID. SINUS TACHYCARDIA 102-105. SBP WITHIN NORMAL RANGE. STAYING AT 45% FIO2. SATURATION 94%. RR NOT HIGHER THAN 22. WIDE AWAKE. GOOD STRONG COUGH.
[2018-10-24] MEDS: ENOXAPARIN SOD 60 MG/0.6 ML SYRINGE SC SCH (22:17)
[2018-10-25] VITALS (85 sets, daily range): BP systolic 129–188; BP diastolic 45–93
--- NOTE | 2018-10-25 | NUR ---
REPOSITIONED TO BACK. ORAL CARE. LIP CARE. NYSTATIN ORALLY. MOUTH IS CLEAN. NOTHING SUCTIONED FROM MOUTH OR TRACH. LUNGS CLEAR. ABDOMEN SOFT. NO BM. OLIVO DRAINING CLEAR YELLOW LIQUID. SINUS TACHYCARDIA 106. NO ECTOPY. BP STABLE. STRONG COUGH. LOW GRADE FEVER. THANIA. 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
--- NOTE | 2018-10-25 02:47 | NUR ---
Respiratory note: INCREASED FIO2 TO 45%, RN AWARE. TRACH CARE DONE, PT TOLERATED WELL. AREA AROUND TRACH AND STOMA CLEANED AND DRIED USING STERILE TECHNIQUE. NO REDNESS SEEN AROUND STOMA AND NO SKIN BREAKDOWN SEEN AROUND TRACH TIES. TRACH SECURED WITH SUTURES AND TRACH TIES. GAUZE CHANGED AND CUFF PRESSURE CHECKED. SPARE TRACH, AMBU BAG AND MASK AT BEDSIDE. WILL CONTINUE TO MONITOR.
[2018-10-25] MEDS: LABETALOL HCL 5 MG/ML ML 20ML VIAL IV PRN (04:00)
[2018-10-25] MEDS: MEROPENEM 1GM IVPB 100 ML IV SCH ×3 (04:00→20:18)
[2018-10-25 04:15] LABS: Basophils # (auto) 0 uL; Basophils % (auto) 0.2 % (0.0-2.0); Eosinophils % (auto) 4.8 % (0.0-7.0); Hematocrit 21.7 % (41.0-53.0); Hemoglobin 7.4 g/dL (13.5-17.5); Lymphocytes # (auto) 0.8 uL; Lymphocytes % (auto) 3.8 % (10.0-50.0); Mean Corpuscular Hemoglobin 32.7 pg (28.0-32.0); Mean Corpuscular Hgb Conc. 33.9 g/dL (32.0-36.0); Mean Corpuscular Volume 96.2 fL (80.0-100.0); Monocytes # (auto) 2.2 uL; Monocytes % (auto) 10.9 % (0.0-12.0); Neutrophils # (auto) 16.1 uL; Neutrophils % (auto) 80.3 % (37.0-80.0); Platelet Count (auto) 337 10^3/uL (140-450); Red Blood Cells 2.26 10^6/uL (4.5-5.90); Red Cell Distribution Width 18.1 % (11.8-14.3); White Blood Cell 20.1 10^3/uL (4.4-10.8)
[2018-10-25 04:18] LABS: Potassium 3.5 mmol/L (3.5-5.1)
[2018-10-25 04:22] LABS: Albumin 1.5 g/dL (3.4-5.0); BUN/Creatinine Ratio 45.8; Calcium 7.6 mg/dL (8.5-10.1)
[2018-10-25 04:24] LABS: Bilirubin, Total 0.5 mg/dL (0.2-1.0); Phosphorus 2.5 mg/dL (2.5-4.90); Total Protein 5.1 g/dL (6.4-8.2)
[2018-10-25 04:46] LABS: Pre Albumin 5.7 mg/dL (20.0-40.0)
--- NOTE | 2018-10-25 05:35 | NUR ---
SMALL WOUND NEAR ANUS : DRESSING REMOVED. CLEANED. HONEY APPLIED AND COVERED WITH A FOAM DRESSING. WOUND BASE IS PINK. LEFT FOOT DRESSING REMOVED. BOOTS OFF. NEW SCDS PLACED. NEW BLOOD PRESSURE CUFF. LOTION TO SKIN. LEFT FOREARM DRESSING REMOVED. WOUND DRAINED SEROUS FLUID. CLEANED AND DRIED. HONEY APPLIED. COVERED WITH A FOAM DRESSING.
[2018-10-25] MEDS: IPRATROPIUM BROM 0.5 MG/2.5ML INH SOL NEB SCH ×3 (05:41→19:17)
[2018-10-25] MEDS: ALBUTEROL SULF 2.5 MG/0.5ML(0.5%) NEB SOLN NEB SCH ×3 (05:41→19:17)
[2018-10-25] MEDS: METOCLOPRAMIDE HCL 5MG/ml INJ 2ml VIAL IV SCH ×3 (06:08→22:16)
[2018-10-25] MEDS: ACCU-CHEK COMFORT CURVE STRIP VI SCH ×4 (06:09→18:38)
[2018-10-25] MEDS: InsuLIN REG 1unit/0.01ml Soln (100units/ml) SC SCH ×4 (06:29→18:38)
--- NOTE | 2018-10-25 07:30 | NUR ---
OPEN Report received from Licha WATTS. Care initiated and initial assessment completed. Patient is trached on the ventilator. Vital signs are stable at this time. Patient is in bed at this time with bed in lowest position, head elevated, and call light within reach. Patient is able to follow commands. Patient also nods head yes or no in reference to questions. Attempting to use communication board. Patient aware of plan of care for the day. Will continue to monitor.
[2018-10-25] MEDS: ENOXAPARIN SOD 60 MG/0.6 ML SYRINGE SC SCH ×2 (09:05→22:17)
[2018-10-25] MEDS: LINEZOLID 600MG/300ML 300 ML IV SCH ×2 (09:05→22:16)
[2018-10-25] MEDS: NYSTATIN (MOUTH-THROAT) 500,000 UNITS/5 ML SUSP MT SCH ×2 (09:05→22:16)
[2018-10-25] MEDS: FAMOTIDINE (10MG/ML) 2ML VL IV SCH ×2 (09:05→22:16)
[2018-10-25] MEDS: VORICONAZOLE INJ 200 MG in D5W 5% 250 ML IV SCH ×2 (09:06→22:17)
[2018-10-25] MEDS: SODIUM CHLOR 0.9% PF (SALINE LOCK) 10ML VIAL/SYR IV SCH ×2 (09:16→22:16)
--- NOTE | 2018-10-25 10:15 | NUR ---
FAMILY BEDSIDE Patients is at the bedside. Updated on patients status and all questions addressed at this time.
--- NOTE | 2018-10-25 11:06 | NUR ---
Nutrition Follow-up Notes Wt.: 62.7 kg Pt`s s/p trach with no family by bedside. per RN pt is NPO on PN support @ 68 ml.hr providing 1190 kcals and 60 gm proteins 950 NCP. pt with inadequate PN support as it meets 55-66% kcals and 64-83% proteins. per RN pt was not able to tolerate EN had emesis and hence EN turned off. Est. Needs IBW (72 kg): 2950-5412 kcal (25-30 kcal/kgBW), 72-93 gms pro (1.0-1.3 gms/kgBW r/t severe hypoalb). Will continue to monitor pertinent labs and reassess nutrient need prn Labs: TH 169 H, PREALB 5.7 L, ALB 15.5 L, CA 7.6 L, GLU 180 H Skin: Atilio scale 13, mod risk pt with multiple skin tears and scabs per RN doc GI: Pt had 2 BM 10/18 gastric drainage of 160 ml per men's basketball coach. PES: Altered nutrition related lab values r/t acute/chronic medical condition aeb elev BUN A1C, hypercapnia, hyperglycemia, Increased nutrient needs r/t current chronic medical condition aeb pt`s with cancer underwt and NPO intubated with severe hypoalb Will continue to monitor NPO status, PN tolerance, skin status, pertinent labs and weight trend. F/u in 2-3 days. Rec.: 1.) advance diet as medically feasible. 2) advance PN support to meet > 75% of needs if pt unable to tolerate EN. 3) consider to resume EN support with Vital AF @ 70 ml./hr per MD approval as pt tolerates. 3) consider prostat 1 packet bid. 4) consider MVI.C bid. 5) refer to CDE on DC. 6) continue current plan of care
[2018-10-25] MEDS: D5W 5% IV SCH (11:23)
[2018-10-25] MEDS: VORICONAZOLE IV SCH (11:23)
--- NOTE | 2018-10-25 11:45 | NUR ---
PHYSICAL THERAPY topographical field assistant Mickey at the bedside completing passive range of motion with the patient.
[2018-10-25] MEDS ORDERED: cloNIDine 0.2 mg/24hr 7DAY PATCH TD ONE (12:15)
[2018-10-25] MEDS ORDERED: ALBUMIN 25% 50 ML IV ONE (12:15)
[2018-10-25] MEDS ORDERED: FUROSEMIDE 40 MG/4 ML VIAL IV ONE (12:15)
--- NOTE | 2018-10-25 12:20 | NUR ---
BEDSIDE Dr. Duarte bedside. New orders received.
--- NOTE | 2018-10-25 12:45 | NUR ---
TAP WATER ENEMA Tap water enema completed at this time. Patient tolerated well. Partial linen change completed, no stool.
[2018-10-25] MEDS ORDERED: POTASSIUM PHOSP 22MEQ(15MMOLE) in NS 100 ML IV ONE (14:00)
[2018-10-25] MEDS: GABAPENTIN 300 MG CAP PO SCH ×2 (14:49→22:17)
--- NOTE | 2018-10-25 15:50 | NUR ---
FAMILY BEDSIDE Patients son is at the bedside. Updated on patients condition. All questions addressed at this time.
--- NOTE | 2018-10-25 17:00 | NUR ---
LINEN CHANGE/BM Patient had a bowel movement. Partial bath and total linen change completed. All buttocks optifoam pads changed.
--- NOTE | 2018-10-25 17:20 | NUR ---
COOLING MEASURES Patient is running a high temperature, cooling measures in place via ice packs under both upper extremities.
[2018-10-25] MEDS: ACETAMINOPHEN 650 mg PER 20 mL UD GT PRN (18:47)
[2018-10-25] MEDS: ACETYLCYSTEINE 10 %(100MG/ML) SOL 4ML NEB SCH (19:18)
--- NOTE | 2018-10-25 19:45 | NUR ---
Opening Shift Note Assumed care of patient, awake and alert, nodded or shook his head in order to answer yes or no, followed commands. Breathing on tracheostomy tube with ventilator PC mode, No S/S of distress/SOB. Denied pain. PICC line on left upper arm, CDI site, infusing with TPN and Fentanyl. PEG in place, clamped. Jane's catheter hung to gravity with clear yellowish urine. Bed in low position, call light within reach, all alarms are audible, fall and safety precaution in place. Instructed on POC and to call for assist PRN, will continue to monitor for changes Q1hr and PRN.
[2018-10-25] MEDS ORDERED: TPN PER PHARMACY IV NR ×11 (20:00)
--- NOTE | 2018-10-25 22:00 | NUR ---
Condition update V/S and condition stable. Temp decreased 99.9 rectally. BP elevated with activities 158/65, will keep monitoring and give medicine as order if persistence. Followed simple commands, complied with nursing care. Continue care.
[2018-10-26] VITALS (78 sets, daily range): BP systolic 122–190; BP diastolic 50–109
[2018-10-26] MEDS: ALBUTEROL SULF 2.5 MG/0.5ML(0.5%) NEB SOLN NEB SCH ×5 (00:13→23:44)
[2018-10-26] MEDS: IPRATROPIUM BROM 0.5 MG/2.5ML INH SOL NEB SCH ×5 (00:13→23:44)
[2018-10-26] MEDS: ACETYLCYSTEINE 10 %(100MG/ML) SOL 4ML NEB SCH ×5 (00:15→23:44)
[2018-10-26] MEDS: LORazepam 2MG/ML-1ML VIAL IV PRN ×2 (00:29→20:24)
--- NOTE | 2018-10-26 00:35 | NUR ---
Condition update Pt awake, agitated. Pt pointed at the IV pole and asked same questions multiple times. Explained and oriented Pt. BP increased due to agitation, continue monitor and will administer BP medicine as order if persistence. Continue care.
[2018-10-26] MEDS: InsuLIN REG 1unit/0.01ml Soln (100units/ml) SC SCH ×5 (00:42→23:42)
[2018-10-26] MEDS: ACCU-CHEK COMFORT CURVE STRIP VI SCH ×5 (00:42→23:42)
[2018-10-26] MEDS: ACETAMINOPHEN 650 mg PER 20 mL UD GT PRN ×3 (01:43→22:13)
--- NOTE | 2018-10-26 01:45 | NUR ---
Condition update/ Fever Temp elevated 100.3 rectally, Tylenol given, cooling measures on. Pt resting well after Ativan given. Other v/s and condition stable. Continue care.
--- NOTE | 2018-10-26 03:30 | NUR ---
Condition update Pt sleeping well, v/s and condition stable. Continue monitoring.
--- NOTE | 2018-10-26 03:41 | NUR ---
Family called, Pt's called, Pt's condition updated to the .
[2018-10-26] MEDS: MEROPENEM 1GM IVPB 100 ML IV SCH ×3 (03:45→20:24)
[2018-10-26 04:12] LABS: Basophils # (auto) 0.1 uL; Basophils % (auto) 0.3 % (0.0-2.0); Eosinophils # (auto) 2.1 uL; Eosinophils % (auto) 12.2 % (0.0-7.0); Hematocrit 20.9 % (41.0-53.0); Lymphocytes # (auto) 0.8 uL; Lymphocytes % (auto) 4.6 % (10.0-50.0); Mean Corpuscular Hgb Conc. 33.4 g/dL (32.0-36.0); Mean Corpuscular Volume 95.8 fL (80.0-100.0); Monocytes # (auto) 1.8 uL; Monocytes % (auto) 10.4 % (0.0-12.0); Neutrophils # (auto) 12.2 uL; Neutrophils % (auto) 72.5 % (37.0-80.0); Platelet Count (auto) 302 10^3/uL (140-450); Red Blood Cells 2.18 10^6/uL (4.5-5.90); Red Cell Distribution Width 18.5 % (11.8-14.3); White Blood Cell 16.9 10^3/uL (4.4-10.8)
[2018-10-26 04:16] LABS: Potassium 3.3 mmol/L (3.5-5.1)
[2018-10-26 04:24] LABS: Albumin 1.5 g/dL (3.4-5.0); BUN/Creatinine Ratio 47.4; Bilirubin, Total 0.3 mg/dL (0.2-1.0); Calcium 7.5 mg/dL (8.5-10.1); Magnesium 2.4 mg/dL (1.6-2.6); Phosphorus 2.7 mg/dL (2.5-4.90)
--- NOTE | 2018-10-26 04:33 | NUR ---
Critical LAB HB 7.0, Hospitalist paged.
--- NOTE | 2018-10-26 05:05 | NUR ---
Patient bathe/linen change/ elimination Patient given complete bath with CHG wipes. Pt passed a large amount of loose yellowish stool. Perirectal and perineum care done. Jane's cath care done, z-guard applied. Skin integrity assessed for any changes. Left ear DTI, clean and dry with scab intact. Optifoam at sacrum and right hip changed, d/s done. Complete linens changed. Patient repositioned for comfort and to prevent pressure ulcer.
--- NOTE | 2018-10-26 06:20 | NUR ---
Pneumothorax, Summary Radiologist called to notified CXR result, right apical pneumothorax 10-15%. Previous CT chest showed tiny apical right pneumothorax. Charge nurse notified the result, will endorsed to day shift. Pt's breathing stable through out the night, O2sat 96-98%, small to moderate thick yellowish sputum, some leaked around the trach stoma, cleaned around stoma. No s/s of distress. PEG no residual. Continue care and will endorsed to day shift.
[2018-10-26] MEDS: METOCLOPRAMIDE HCL 5MG/ml INJ 2ml VIAL IV SCH ×3 (06:22→21:23)
[2018-10-26] MEDS: GABAPENTIN 300 MG CAP PO SCH ×3 (06:22→21:23)
--- NOTE | 2018-10-26 07:05 | NUR ---
OPENING NOTE REPORT RECEIVED AND CARE ASSUMED OF PT FROM AMANDA WATTS
[2018-10-26] MEDS ORDERED: POTASSIUM PHOSPHATE 22 MEQ in SODIUM CHL 0.9% 100 ML IV ONE (08:45)
--- NOTE | 2018-10-26 09:30 | NUR ---
BEGAN T-PIECE TRIAL. WILL CONTINUE TO MONITOR
--- NOTE | 2018-10-26 09:30 | NUR ---
PT STARTED ON T PIECE TRIAL AT THIS TIME. 70% COOL MIST AEROSOL. HR 103, POX 97%, RR 28. RN AT BEDSIDE AWARE OF T PIECE TRIAL. PT IS ON FENTANYL DRIP. PT IS AWAKE AND FOLLOWS COMMANDS IN NO DISTRESS AT THIS TIME.
[2018-10-26] MEDS: fentaNYL Drip 2500mCg/250mlNS 250 ML IV SCH ×2 (09:36→16:28)
[2018-10-26] MEDS: FAMOTIDINE (10MG/ML) 2ML VL IV SCH (09:37)
[2018-10-26] MEDS: NYSTATIN (MOUTH-THROAT) 500,000 UNITS/5 ML SUSP MT SCH ×2 (09:37→21:23)
[2018-10-26] MEDS: VORICONAZOLE INJ 200 MG in D5W 5% 250 ML IV SCH ×2 (09:37→23:39)
[2018-10-26] MEDS: ENOXAPARIN SOD 60 MG/0.6 ML SYRINGE SC SCH ×2 (09:37→21:22)
[2018-10-26] MEDS: SODIUM CHLOR 0.9% PF (SALINE LOCK) 10ML VIAL/SYR IV SCH ×2 (10:26→20:26)
[2018-10-26 10:45] LABS: Hematocrit 22.5 % (41.0-53.0)
[2018-10-26] MEDS: LINEZOLID 600MG/300ML 300 ML IV SCH ×2 (10:50→21:24)
--- NOTE | 2018-10-26 11:00 | NUR ---
ELEVATED BP. LABETALOL PRN GIVEN FOR ELEVATED BP. AWARE THERE IS A CLONIDINE PATCH TO RIGHT ARM BUT CONTINUES TO HAVE ELEVATED BP. WILL CONTINUE TO MONITOR
[2018-10-26] MEDS: LABETALOL HCL 5 MG/ML ML 20ML VIAL IV PRN ×2 (11:14→22:13)
--- NOTE | 2018-10-26 11:42 | NUR ---
Osman Villa left a voice mail this morning at 7:45am regarding this Pt. Followed up phone called with Osman Villa. Osman farah Daisy advised that [facility] insurance is requesting status of Pt and asking why is Pt is not stable for transfer. Advised Osman farah Riner Doctor Raiza states he is not stable. Per Osman Villa they need to know reason of instability because insurance can deny transfer. Informed Dr. Eastman at 9:00am and he stated he is not stable due "to much septic". Followed up with Osman Villa advised her what Dr. Eastman stated and she said she will called [facility] Jemima to update her of Pt status.
--- NOTE | 2018-10-26 13:00 | NUR ---
TURNED FENTANYL OFF. WILL CONTINUE TO MONITOR PT
[2018-10-26] MEDS ORDERED: ALBUMIN 25% 50 ML IV ONE (13:15)
[2018-10-26] MEDS ORDERED: POTASSIUM CHL 20MEQ/100ML 100 ML IV SCH ×2 (13:15→15:15)
[2018-10-26] MEDS ORDERED: FUROSEMIDE 20 MG/2 ML VIAL IV ONE (13:15)
--- NOTE | 2018-10-26 14:04 | NUR ---
PT PLACED BACK ON VENTILATOR ON SETTINGS PCV, RR 18, IP14, PEEP5, 45% FIO2. SPO2 97%.
--- NOTE | 2018-10-26 18:00 | NUR ---
LARGE LIQUID BM PT HAD TWO EPISODES OF LARGE LIQUID BROWN STOOLS CHANGED LINENS AND CHANGED OPTIFOAM DRESSINGS AND INSERTED RECTAL TUBE
--- NOTE | 2018-10-26 18:30 | NUR ---
STARTED TUBE FEEDING 10ML RESIDUAL. STARTED TUBE FEEDING. WILL CONTINUE TO MONITOR
--- NOTE | 2018-10-26 19:15 | NUR ---
CLOSING NOTE SHIFT REPORT GIVEN AND CARE ENDORSED TO JONATHAN WATTS
--- NOTE | 2018-10-26 19:30 | NUR ---
OPENING NOTES ASSUMED CARE, AWAKE AND ORIENTED, STILL ON VENT, OFF SEDATION, PEG TUBE IN PLACE INFUSING GLUCERNA @ 5ML/HR, TPN INFUSING @ 65 ML.HR OLIVO CATHETER DRAINING TO A CLEAR, YELLOW URINE., ALL DRESSINGS INTACT, FLEXISEAL IN PLACE. BED IN LOWEST POSITION WITH SIDE RAILS UP, BED ALARM ON. WILL CONTINUE CARE.
[2018-10-26] MEDS ORDERED: TPN PER PHARMACY IV NR ×11 (20:00)
--- NOTE | 2018-10-26 20:10 | NUR ---
RT NOTE VENT CHECK COMPLETED. PT COMPLAINING THAT THEY ARE NOT ABLE TO BREATH. PT SPO2 100% AND RETURN TIDAL VOLUMES ARE GOOD. RT BUMPED THE FIO2 TO 100%, AND SUCTIONED THE PTS TRACH. VERY LITTLE RETURN WITH SUCTION. RT SUCTIONED THREE TIMES. PT STILL SAYING THE ARE HAVING TROUBLE BREATHING. RT DISCONNECTED PT FROM VENT TO SEE IF THAT WOULD HELP THE PT CATCH THEIR BREATH. PT MAINTAINED SPO2 OFF VENT, BUT STILL WAS HAVING ISSUES. RT PREPARED TO BAG PT WHEN THE PT STARTED TO CALM DOWN. THE PTS CR STAYED LEVEL, BUT RESP RATE DID GO INTO THE MID 30'S DURING THIS EPISODE. PT SEEMS TO BE FINE NOW. RT DID CHECK THE TRACH TO SEE IF THERE WAS AN POSITIONAL ISSUE BUT DIDN'T FIND ANY PROBLEMS WITH THE TRACH. RT INFORMED STEFANIE CASTILLO OF THE EPISODE. STEFANIE CASTILLO SAID SHE WOULD SEE ABOUT GIVING THE PT SOMETHING FOR ANXIETY.
--- NOTE | 2018-10-26 21:00 | NUR ---
PEG TUBE FEEDING HELD, 30ML RESIDUALS NOTED.
[2018-10-26] MEDS: methylPREDNISolone SOD SUCC 40 MG/ML VL IV SCH (21:23)
[2018-10-26] MEDS: PANTOPRAZOLE 40 MG/10 ML VIAL INJ IV SCH (21:24)
--- NOTE | 2018-10-26 22:18 | NUR ---
HYPERTENSION/FEVER BP 174/101, HR 100, LABETALOL 20 MG IV GIVEN TEMP 101.1, TYLENOL 650MG GIVEN VIA PEG TUBE, COOLING MEASURES DONE.
--- NOTE | 2018-10-26 23:28 | NUR ---
BP RECHECKED 153/71, HR 97.
[2018-10-27] VITALS (48 sets, daily range): BP systolic 136–196; BP diastolic 56–110
--- NOTE | 2018-10-27 01:08 | NUR ---
C/O LEG PAIN, PAGED THE HOSPITALIST FOR ORDERS, AWAITING CALL BACK.
--- NOTE | 2018-10-27 01:18 | NUR ---
VINNY MEDINA CALLED BACK WITH ORDER TO GIVE MORPHINE 2 MG IV PRN, WILL CARRY OUT AN ORDER.
[2018-10-27] MEDS ORDERED: MORPHINE SULF INJ 2 MG/ML SYRINGE 1ML ONE (01:21)
[2018-10-27] MEDS: MORPHINE SULF INJ 2 MG/ML SYRINGE 1ML IV PRN ×3 (01:26→11:12)
[2018-10-27] MEDS: MEROPENEM 1GM IVPB 100 ML IV SCH ×3 (03:12→20:15)
--- NOTE | 2018-10-27 04:00 | NUR ---
Patient bathe/linen change Noted to have small amount of pasty, brown stools. Patient given complete bath. Skin integrity assessed for any changes. Linens and gown changed. Patient repositioned for comfort.
--- NOTE | 2018-10-27 04:15 | NUR ---
Wound care Cleansed wound in the sacral area, both right and left forearms, right heel and changed optifoam dressings. Pt is requesting to remove patrice boots and SCD's at this time to rest his lower extremities and will resume later. Both lower extremities offloaded with pillows.
--- NOTE | 2018-10-27 04:48 | NUR ---
RT NOTE VENT CHECK COMPLETED. PT TOLERATING SETTINGS. PT STILL RUNNING A TEMP AND RR IS STILL HIGH. PT IS COMPLAINING OF PAIN. PEAK PRESSURES HAVE BEEN INCREASING. RT ASKED LEAD RT BETITO TO TAKE A LOOK AT THE PT AND HELP ADVISE IF THERE IS SOMETHING RESP CAN DO. THE ITIME WAS ADJUSTED TO 0.7 WHICH SEEMS TO BE HELPING THE PT. THE PRESSURES ARE DECREASING AND SO IS THE PTS RATE. YESTERDAYS CHEST XRAY SHOWS A 10 TO 15% PNEUMO PRESENT IN THE PT. RT ASKED STEFANIE CASTILLO TO SEE ABOUT GETTING A NEW CHEST XRAY SO WE CAN SEE IF THE PNEUMO HAS GOTTEN WORSE.STEFANIE CASTILLO STATED THAT SHE WILL PUT IN A NEW ORDER FOR XRAY. PT DOESN'T SEEM TO BE IN ANY RESP DISTRESS AT THIS TIME.
[2018-10-27 04:55] LABS: Basophils # (auto) 0 uL; Basophils % (auto) 0.2 % (0.0-2.0); Eosinophils # (auto) 0 uL; Eosinophils % (auto) 0.2 % (0.0-7.0); Hemoglobin 9.6 g/dL (13.5-17.5); Lymphocytes # (auto) 0.5 uL; Lymphocytes % (auto) 3.2 % (10.0-50.0); Mean Corpuscular Hemoglobin 31.4 pg (28.0-32.0); Mean Corpuscular Hgb Conc. 33.2 g/dL (32.0-36.0); Mean Corpuscular Volume 94.5 fL (80.0-100.0); Monocytes # (auto) 0.3 uL; Monocytes % (auto) 1.8 % (0.0-12.0); Neutrophils # (auto) 14.5 uL; Neutrophils % (auto) 94.6 % (37.0-80.0); Platelet Count (auto) 369 10^3/uL (140-450); Red Blood Cells 3.07 10^6/uL (4.5-5.90); Red Cell Distribution Width 17.9 % (11.8-14.3); White Blood Cell 15.4 10^3/uL (4.4-10.8)
[2018-10-27 05:22] LABS: Potassium 4.1 mmol/L (3.5-5.1)
[2018-10-27 05:30] LABS: BUN/Creatinine Ratio 36.4; Bilirubin, Total 0.5 mg/dL (0.2-1.0); Calcium 7.7 mg/dL (8.5-10.1); Magnesium 2.5 mg/dL (1.6-2.6); Phosphorus 2.8 mg/dL (2.5-4.90); Total Protein 6.1 g/dL (6.4-8.2)
[2018-10-27] MEDS: ACCU-CHEK COMFORT CURVE STRIP VI SCH ×4 (05:59→23:29)
[2018-10-27] MEDS: METOCLOPRAMIDE HCL 5MG/ml INJ 2ml VIAL IV SCH ×3 (06:00→20:52)
[2018-10-27] MEDS: InsuLIN REG 1unit/0.01ml Soln (100units/ml) SC SCH ×4 (06:00→23:30)
[2018-10-27] MEDS: GABAPENTIN 300 MG CAP PO SCH ×3 (06:00→20:50)
--- NOTE | 2018-10-27 06:10 | NUR ---
ELIMINATION LARGE AMOUNT OF LOOSE STOOLS NOTED. FLEXISEAL ADVANCE TO THE RECTUM AND INSTILLED ABOUT 20ML WATER. CLEANSED AND KEPT DRY AND COMFORTABLE. REPOSITIONED FOR COMFORT.
[2018-10-27] MEDS: ALBUTEROL SULF 2.5 MG/0.5ML(0.5%) NEB SOLN NEB SCH ×3 (06:53→19:25)
[2018-10-27] MEDS: ACETYLCYSTEINE 10 %(100MG/ML) SOL 4ML NEB SCH ×3 (06:53→19:25)
[2018-10-27] MEDS: IPRATROPIUM BROM 0.5 MG/2.5ML INH SOL NEB SCH ×3 (06:53→19:25)
--- NOTE | 2018-10-27 06:58 | NUR ---
C/O GENERALIZED PAIN, SCALE 10/10. MORPHINE 2 MG GIVEN IV ORDERED PRN. REST AND COMFORT PROVIDED.
--- NOTE | 2018-10-27 08:00 | NUR ---
OPENING NOTE Received patient in bed resting while watching television, awake and alert, nodded or shook his head in order to answer yes or no, able to follow commands , pupils reactive to light and moves upper extremities slowly and exhibits weakness.Tracheostomy shiley 8.0 with ventilator PC mode, No S/S of distress/SOB.Sinus tachycardia on bedside monitor, pulses palpable on upper/lower extremities. Peg tube to the abdomen infusing Glucerna at 5ml/hr, 20ml residual aspirated will continue to infuse Glucerna. PICC line on left upper arm, clean, dry and intact infusing with TPN at 65ml/hr. Jane's catheter hung to gravity with clear yellowish urine. Multiple wounds see wound assessment. Bed in low position, call light within reach, all alarms are audible, fall and safety precaution in place. Instructed on POC and to call for assist PRN, will continue to monitor for changes Q1hr and PRN.
--- NOTE | 2018-10-27 08:15 | NUR ---
SCD'S/POOSY BOOTS Patient refuses for this RN to re-apply SCD's and possy boots. Educated patient on the importance of SCD's and possy boots patient nods understanding.
--- NOTE | 2018-10-27 09:45 | NUR ---
FAMILY Patients , Susi, at bedside updated on patient condition.
[2018-10-27] MEDS: SODIUM CHLOR 0.9% PF (SALINE LOCK) 10ML VIAL/SYR IV SCH ×2 (09:55→20:51)
[2018-10-27] MEDS: methylPREDNISolone SOD SUCC 40 MG/ML VL IV SCH ×2 (09:55→20:52)
[2018-10-27] MEDS: VORICONAZOLE INJ 200 MG in D5W 5% 250 ML IV SCH ×2 (09:55→22:00)
[2018-10-27] MEDS: ENOXAPARIN SOD 60 MG/0.6 ML SYRINGE SC SCH ×2 (09:55→20:51)
[2018-10-27] MEDS: LINEZOLID 600MG/300ML 300 ML IV SCH ×2 (09:55→23:29)
[2018-10-27] MEDS: PANTOPRAZOLE 40 MG/10 ML VIAL INJ IV SCH ×2 (09:55→20:52)
[2018-10-27] MEDS: NYSTATIN (MOUTH-THROAT) 500,000 UNITS/5 ML SUSP MT SCH ×2 (09:55→20:49)
--- NOTE | 2018-10-27 10:00 | NUR ---
SCD'S/PATRICE BOOTS Patient refuses for this RN to re-apply SCD's and patrice boots. Educated patient and ,Susi, on the importance of SCD's and possy boots patient nods/ verbalizes understanding. attempts to convince patient to wear patrice boots/SCD's without success.
--- NOTE | 2018-10-27 10:45 | NUR ---
MD Dr. Wong at bedside updated on patient condition with no new orders, MD states " Will hold EGD at this time." MD spoke to patient and patients Susi regarding plan of care. Questions/concerns answered by .
--- NOTE | 2018-10-27 11:25 | NUR ---
ELIMINATION Patient had small loose bowel movement around rectal tube, tony-care provided and partial linen changed. Patient complaining of pain due to rectal tube and requested removal informed patient benefits of rectal tube. Patient noded understanding. Rectal tube removed and large formed stool at the end of tube.Patient tolerated well.
--- NOTE | 2018-10-27 12:00 | NUR ---
NUTRITION Checked residuals from PEG tube aspirated zero increased feedings to 10ml/hr.
[2018-10-27] MEDS: LORazepam 2MG/ML-1ML VIAL IV PRN (12:44)
[2018-10-27] MEDS ORDERED: LISINOPRIL 10 MG TAB PO ONE (12:45)
--- NOTE | 2018-10-27 13:53 | NUR ---
Nutrition Follow-up Notes Wt.: 60.2 kg Pt. remains intubated and sedated with TPN running at goal rate 65 mL/Hr during visit. Family at bedside. PEG in place which was placed yesterday per RN. Received Glucerna 1.2 at 40 mL/Hr on the previous evening, but TF turned off at this time due to high GRV per RN. Documented GRV 10-30 mL x 1 day. Est. Needs IBW (72 kg): 7891-5354 kcal (25-30 kcal/kg BW), 72-93 gms pro (1.0-1.3 gms/kgBW r/t severe hypoalb). Will continue to monitor pertinent labs and reassess nutrient need prn Labs: Glu 241H, POC >180 mg/dL x 3 days, AST 38H, ALB 2L, Ca 7.7L Skin: Atilio 12, multiple DTIs, P/U noted per RN documentations GI: BM x 3, loose stools with flexiseal in place PES: Altered nutrition related lab values r/t acute/chronic medical condition aeb elev BUN A1C, hypercapnia, hyperglycemia, (ongoing) Increased nutrient needs r/t current chronic medical condition aeb pt`s with cancer underwt and NPO intubated with severe hypoalb (ongoing) Will continue to monitor NPO status, PN tolerance, skin status, pertinent labs and weight trend. F/u in 2-3 days. Recommendations 1) Advance PN to meet >75% estimated needs as tolerated if pt. will be expected to depend solely on PN nutrition support >48 Hrs. 2) If medically able, gradually lower PN and gradually increase TF rate as tolerated, with advancements 10 mL Q4H 3) Consider changing formula to elemental TF if GRV remains high/TF intolerance. Vital AF 1.2 at goal rate 70 mL/Hr to meet >75% estimated needs.
--- NOTE | 2018-10-27 14:05 | NUR ---
ELIMINATION Patient had small loose bowel movement, tony-care provided and partial linen changed. Patient tolerated well.
--- NOTE | 2018-10-27 15:45 | NUR ---
ELIMINATION Patient had small loose bowel movement, tony-care provided and partial linen changed. Patient tolerated well.
--- NOTE | 2018-10-27 16:15 | NUR ---
NUTRITION Checked residuals from PEG tube [id number] will continue feedings at current rate.
[2018-10-27] MEDS: fentaNYL Drip 2500mCg/250mlNS 250 ML IV SCH (16:28)
--- NOTE | 2018-10-27 16:30 | NUR ---
PATRICE BOOTS Patient agreed to re-apply patrice boots but does not want SCD's.
--- NOTE | 2018-10-27 18:15 | NUR ---
ELIMINATION Patient had small loose bowel movement, tony-care provided and partial linen changed. Patient tolerated well.
[2018-10-27] MEDS ORDERED: TPN PER PHARMACY IV NR ×9 (20:00)
--- NOTE | 2018-10-27 20:00 | NUR ---
REFUSED HARJINDER BOOTS AND SCD'S AT THIS TIME, DANGLES LEGS AT THE EDGE OF THE BED.
--- NOTE | 2018-10-27 22:00 | NUR ---
RESIDUALS 20 ML VIA PEG TUBE, HELD FEEDING TEMP.
--- NOTE | 2018-10-27 23:15 | NUR ---
Connected back to SCD's and patrice boots to both lower extremities.
[2018-10-28] VITALS (66 sets, daily range): BP systolic 135–186; BP diastolic 58–101
[2018-10-28] MEDS: IPRATROPIUM BROM 0.5 MG/2.5ML INH SOL NEB SCH ×5 (00:19→23:52)
[2018-10-28] MEDS: ALBUTEROL SULF 2.5 MG/0.5ML(0.5%) NEB SOLN NEB SCH ×5 (00:19→23:52)
[2018-10-28] MEDS: ACETYLCYSTEINE 10 %(100MG/ML) SOL 4ML NEB SCH ×5 (00:20→23:52)
--- NOTE | 2018-10-28 02:00 | NUR ---
PEG TUBE FEEDING RESUMED @ 10ML/HR.
[2018-10-28] MEDS: MEROPENEM 1GM IVPB 100 ML IV SCH ×3 (03:49→20:00)
--- NOTE | 2018-10-28 04:00 | NUR ---
Patient bathe/linen change Patient given complete bath. Skin integrity assessed for any changes. Linens changed, sacral optifoam changed. Patient repositioned for comfort. Addendum: 10/28/18 at 0636 by Eva Charles RN moderate amount of loose stools noted
--- NOTE | 2018-10-28 04:30 | NUR ---
Oral care done
[2018-10-28 04:40] LABS: Basophils # (auto) 0.1 uL; Basophils % (auto) 0.3 % (0.0-2.0); Eosinophils # (auto) 0 uL; Hematocrit 27.4 % (41.0-53.0); Lymphocytes # (auto) 0.5 uL; Lymphocytes % (auto) 2.6 % (10.0-50.0); Mean Corpuscular Hgb Conc. 32.7 g/dL (32.0-36.0); Mean Corpuscular Volume 94.9 fL (80.0-100.0); Monocytes # (auto) 0.8 uL; Monocytes % (auto) 4.3 % (0.0-12.0); Neutrophils # (auto) 17.1 uL; Neutrophils % (auto) 92.8 % (37.0-80.0); Platelet Count (auto) 427 10^3/uL (140-450); Red Blood Cells 2.89 10^6/uL (4.5-5.90); Red Cell Distribution Width 17.6 % (11.8-14.3); White Blood Cell 18.4 10^3/uL (4.4-10.8)
[2018-10-28 04:53] LABS: Potassium 3.9 mmol/L (3.5-5.1)
[2018-10-28 05:02] LABS: BUN/Creatinine Ratio 45.5; Bilirubin, Total 0.4 mg/dL (0.2-1.0); Calcium 8.3 mg/dL (8.5-10.1); Magnesium 2.4 mg/dL (1.6-2.6); Phosphorus 2.8 mg/dL (2.5-4.90); Total Protein 5.9 g/dL (6.4-8.2)
[2018-10-28] MEDS: GABAPENTIN 300 MG CAP PO SCH ×3 (06:00→21:21)
[2018-10-28] MEDS: METOCLOPRAMIDE HCL 5MG/ml INJ 2ml VIAL IV SCH ×3 (06:11→21:20)
[2018-10-28] MEDS: ACCU-CHEK COMFORT CURVE STRIP VI SCH ×3 (06:12→18:00)
[2018-10-28] MEDS: InsuLIN REG 1unit/0.01ml Soln (100units/ml) SC SCH ×3 (06:12→18:00)
[2018-10-28] MEDS: LABETALOL HCL 5 MG/ML ML 20ML VIAL IV PRN (06:20)
--- NOTE | 2018-10-28 07:45 | NUR ---
Report received Updated on plan of care. Patient not noted in any distress although RR noted as high as 46-50. Pox 100%. Chart check and physical assessment to be reviewed.
[2018-10-28] MEDS: LORazepam 2MG/ML-1ML VIAL IV PRN (08:06)
--- NOTE | 2018-10-28 08:06 | NUR ---
Ativan Patient administered Ativan 1mg iv prn as ordered for anxiety as patient noted tachypneic. Patient repositioned for comfort in semi fowlers. See physical assessment.
[2018-10-28] MEDS ORDERED: LISINOPRIL 10 MG TAB PO SCH (10:00)
[2018-10-28] MEDS: methylPREDNISolone SOD SUCC 40 MG/ML VL IV SCH ×2 (10:31→21:20)
[2018-10-28] MEDS: ENOXAPARIN SOD 60 MG/0.6 ML SYRINGE SC SCH ×2 (10:32→21:21)
[2018-10-28] MEDS: NYSTATIN (MOUTH-THROAT) 500,000 UNITS/5 ML SUSP MT SCH ×2 (10:32→21:20)
[2018-10-28] MEDS: PANTOPRAZOLE 40 MG/10 ML VIAL INJ IV SCH ×2 (10:32→21:20)
[2018-10-28] MEDS: LINEZOLID 600MG/300ML 300 ML IV SCH ×2 (10:33→21:20)
[2018-10-28] MEDS: MORPHINE SULF INJ 2 MG/ML SYRINGE 1ML IV PRN (10:55)
--- NOTE | 2018-10-28 10:55 | NUR ---
PAIN PATIENT CONTINUES TO BE RESTLESS, MOUTHING HE WANTS TO GET OUT OF BED, MOVING LOWER EXT. OVER RAIL TO RIGHT SIDE. ASSESSED PATIENT AND STATING HE HAS GENERAL PAIN THROUGHOUT AND TO RIGHT LEG. PRN MORPHINE GIVEN FOR COMFORT/PAIN MANAGEMENT. AT BEDSIDE.
[2018-10-28] MEDS: VORICONAZOLE INJ 200 MG in D5W 5% 250 ML IV SCH ×2 (10:59→22:46)
[2018-10-28] MEDS: SODIUM CHLOR 0.9% PF (SALINE LOCK) 10ML VIAL/SYR IV SCH ×2 (10:59→21:20)
--- NOTE | 2018-10-28 13:10 | NUR ---
Tackypnia Patient continues tachypneic, no significant distress noted, pox 98%. Lungs remains course throughout, but no secretions via et or oral. When patient alone in room he appears resting. Attempted to page partridge farmer. Unable to reach, Ramonita Phillips is covering but is requesting hospitalist at this time for new orders. Dr. Foster paged and aware, awaiting new orders.
[2018-10-28] MEDS ORDERED: LISINOPRIL 10 MG TAB PO ONE (13:15)
--- NOTE | 2018-10-28 13:54 | NUR ---
Tube feedings tolerated at 15ml/hr. Aspiration precautions in place.
[2018-10-28] MEDS: HYDROcodone-ACET 5/325MG TAB PO PRN ×2 (14:44→22:52)
--- NOTE | 2018-10-28 14:44 | NUR ---
PAIN DR. VAZ AWARE PATIENT CONTINUES TO BE TACHYPNEIC DESPITE MEASURES MADE FOR COMFORT. NEW ORDERS IN PLACE. PRN NORCO GIVEN VIA NG. AWARE VIA PHONE.
--- NOTE | 2018-10-28 16:50 | NUR ---
Resting Patient sleeping at this time, hr 94, bp 162/75 rr 27-30, 100% on mechanical ventilator. Will continue to monitor at this time.
--- NOTE | 2018-10-28 19:05 | NUR ---
REPORT GIVEN PATIENT CONTINUES TO BE RESTING COMFORTABLY WITH RR 28-30. UPDATED NOC NURSE ON PLAN OF CARE.
[2018-10-28] MEDS ORDERED: TPN PER PHARMACY IV NR ×8 (20:00)
[2018-10-29] VITALS (70 sets, daily range): BP systolic 139–185; BP diastolic 66–99
[2018-10-29] MEDS: MEROPENEM 1GM IVPB 100 ML IV SCH ×2 (04:00→12:34)
[2018-10-29 04:25] LABS: Basophils # (auto) 0 uL; Basophils % (auto) 0.1 % (0.0-2.0); Eosinophils # (auto) 0 uL; Hemoglobin 8.7 g/dL (13.5-17.5); Lymphocytes # (auto) 0.4 uL; Lymphocytes % (auto) 2.3 % (10.0-50.0); Mean Corpuscular Hemoglobin 31.7 pg (28.0-32.0); Mean Corpuscular Hgb Conc. 33.3 g/dL (32.0-36.0); Mean Corpuscular Volume 95.2 fL (80.0-100.0); Monocytes # (auto) 0.7 uL; Monocytes % (auto) 4.4 % (0.0-12.0); Neutrophils # (auto) 15.6 uL; Neutrophils % (auto) 93.2 % (37.0-80.0); Platelet Count (auto) 384 10^3/uL (140-450); Red Blood Cells 2.74 10^6/uL (4.5-5.90); Red Cell Distribution Width 17.5 % (11.8-14.3); White Blood Cell 16.7 10^3/uL (4.4-10.8)
[2018-10-29 04:49] LABS: Albumin 1.9 g/dL (3.4-5.0); Calcium 7.9 mg/dL (8.5-10.1); Magnesium 2.2 mg/dL (1.6-2.6)
[2018-10-29 04:54] LABS: BUN/Creatinine Ratio 53.1; Bilirubin, Total 0.3 mg/dL (0.2-1.0); Phosphorus 3.4 mg/dL (2.5-4.90); Total Protein 5.6 g/dL (6.4-8.2)
[2018-10-29] MEDS: METOCLOPRAMIDE HCL 5MG/ml INJ 2ml VIAL IV SCH ×3 (05:30→22:20)
[2018-10-29] MEDS: GABAPENTIN 300 MG CAP PO SCH ×3 (05:30→22:23)
[2018-10-29] MEDS: InsuLIN REG 1unit/0.01ml Soln (100units/ml) SC SCH ×4 (05:40→17:00)
[2018-10-29] MEDS: ACCU-CHEK COMFORT CURVE STRIP VI SCH ×4 (05:40→16:56)
[2018-10-29] MEDS: ACETYLCYSTEINE 10 %(100MG/ML) SOL 4ML NEB SCH ×3 (06:10→18:52)
[2018-10-29] MEDS: ALBUTEROL SULF 2.5 MG/0.5ML(0.5%) NEB SOLN NEB SCH ×3 (06:10→18:52)
[2018-10-29] MEDS: IPRATROPIUM BROM 0.5 MG/2.5ML INH SOL NEB SCH ×3 (06:10→18:52)
--- NOTE | 2018-10-29 07:45 | NUR ---
Report received Patient awake, looking around room, calm, appears relaxed, non labored breathing noted via trach on mechanical ventilator. Chart check to be reviewed. See physial assessment.
--- NOTE | 2018-10-29 08:00 | NUR ---
Tube feedings Gastric residual checked, approx 100ml of tube feedings aspirated. 60ML placed back. Aspiration precautions in place. TF off at this time.
[2018-10-29] MEDS: PANTOPRAZOLE 40 MG/10 ML VIAL INJ IV SCH ×2 (10:26→22:20)
[2018-10-29] MEDS: NYSTATIN (MOUTH-THROAT) 500,000 UNITS/5 ML SUSP MT SCH ×2 (10:26→22:20)
[2018-10-29] MEDS: ENOXAPARIN SOD 60 MG/0.6 ML SYRINGE SC SCH ×2 (10:26→22:20)
[2018-10-29] MEDS: LINEZOLID 600MG/300ML 300 ML IV SCH (10:26)
[2018-10-29] MEDS: HYDROcodone-ACET 5/325MG TAB PO PRN ×2 (10:27→22:39)
[2018-10-29] MEDS: LISINOPRIL 10 MG TAB PO SCH (10:27)
--- NOTE | 2018-10-29 10:27 | NUR ---
PAIN Patient noted to have facial grimacing. Pain assessed and patient able to nod head he is having pain. Patient pointing to right leg. Prn norco given. Position change/ distraction provided. at bedside.
[2018-10-29] MEDS: SODIUM CHLOR 0.9% PF (SALINE LOCK) 10ML VIAL/SYR IV SCH ×2 (10:28→22:24)
[2018-10-29] MEDS: methylPREDNISolone SOD SUCC 40 MG/ML VL IV SCH (10:28)
[2018-10-29] MEDS: VORICONAZOLE INJ 200 MG in D5W 5% 250 ML IV SCH ×2 (10:29→22:24)
--- NOTE | 2018-10-29 11:58 | NUR ---
Nutrition Follow-up Notes Wt.: 58.0 kg Pt`s s/p trach with no family by bedside. per RN pt is NPO on PN support @ 65 ml.hr providing 1740 kcals and 80 gm proteins 1420 NCP. pt with adequate PN support as it meets 80-96% kcals and 86-111% proteins. pt alos pn EN support with Glucerna @ 15 ml.hr providing additional 432 kcals and 21 gm proteins Est. Needs IBW (72 kg): 3698-3760 kcal (25-30 kcal/kgBW), 72-93 gms pro (1.0-1.3 gms/kgBW r/t severe hypoalb). Will continue to monitor pertinent labs and reassess nutrient need prn Labs: GLU 306 H, CA 7.9 L, REECE/LT 115/102 H, ALB 1.9 L. Skin: Atilio scale 11, high risk pt with multiple skin tears and scabs and pressure ulcer buttock and sacrum per RN doc. refer to WC notes fro details GI: Pt had 2 BM 10/18 gastric drainage of 160 ml per cost consultant. PES: Altered nutrition related lab values r/t acute/chronic medical condition aeb elev BUN A1C, hypercapnia, hyperglycemia, Increased nutrient needs r/t current chronic medical condition aeb pt`s with cancer underwt and NPO intubated with severe hypoalb Will continue to monitor NPO status, PN tolerance, EN tolerance, skin status, pertinent labs and weight trend. F/u in 2-3 days. Rec.: 1.) advance diet as medically feasible. 2) consider to taper of PN as pt tolerates EN support with Glucerna @ 70 ml./hr per MD approval as pt tolerates. 3) consider prostat 1 packet bid. 4) consider MVI.C bid. 5) refer to CDE on DC. 6) continue current plan of care
--- NOTE | 2018-10-29 12:58 | NUR ---
Patient resting comfortably at this time. No distress noted. Even, unlabored breathing, RR 26-28, pox 98-99%. Accu check to be done once patient wakes up as he has had poor/no sleeping habits.
--- NOTE | 2018-10-29 13:30 | NUR ---
DR ROTHMAN AT BEDSIDE DISCUSSED PLAN OF CARE WITH PATIENT AND PATIENTS . NEW ORDERS PLACED
--- NOTE | 2018-10-29 13:40 | NUR ---
PT TAKEN OFF VENTILATOR AND PLACED ON 30% COOL MYST VIA TRACH MASK, PER DR ROTHMAN. PT IS AWAKE, ALERT AND ORIENTED. PT ABLE TO UNDERSTAND AND FOLLOW INDICATIONS. PT TOLERATING WELL. NO SOB, WOB OR ANY OTHER RESPIRATORY DISTRESS NOTICED. 97% O2 SATS, HR 89 BPM, RR20 BPM, BP 180/82. STEFANIE TOBIAS AT BEDSIDE. WILL CONTINUE TO MONITOR PT.
[2018-10-29] MEDS ORDERED: FUROSEMIDE 20 MG/2 ML VIAL IV ONE (13:45)
[2018-10-29] MEDS ORDERED: ALBUMIN 25% 50 ML IV ONE (13:45)
--- NOTE | 2018-10-29 14:09 | NUR ---
MD at bedside Md updated by covering charge nurse. at bedside. See new orders.
--- NOTE | 2018-10-29 15:13 | NUR ---
Patient tolerating trach mask on 30%. Patient awake, calm, watching tv, pox 96% rr 32. Will continue to monitor.
[2018-10-29] MEDS: Glucerna 1.2 Cal 1Liter BOTTLE GT SCH (15:33)
--- NOTE | 2018-10-29 15:42 | NUR ---
Tube feedings Tube feedings restarted via peg tube at 10ml/hr. Aspiration precautions in place.
[2018-10-29] MEDS: MORPHINE SULF INJ 2 MG/ML SYRINGE 1ML IV PRN (16:56)
--- NOTE | 2018-10-29 17:06 | NUR ---
Family updated on pt status Family of DENNYS LOPES JR updated on patient's status and condition. All questions and concerns addressed. Son verbalized understanding. Jane change pending, pt noted to be happy and distracted with son at bedside. Jane change to be completed once family leaves or noc nurse to follow order.
--- NOTE | 2018-10-29 18:52 | NUR ---
Respiratory note: PT HAS NEW ORDERS FOR TRACH COLLAR FOR 2HR THEN VENTILATOR FOR 2 HOURS DURING THE DAY. PT HAS CURRENTLY REFUSED TO GO ON TRACH COLLAR. PT STATES THAT HE IS TOO TIRED TO GO ON TRACH COLLAR. INFORMED PT WE WILL TRY AGAIN DURING NEXT ROUNDS. STEFANIE BENAVIDEZ.
--- NOTE | 2018-10-29 19:00 | NUR ---
OPENING NOTE ASSUMED CARE OF PATIENT AT THIS TIME. REPORT RECEIVED FROM DAY SHIFT RN. POC REVIEWED. HEAD TOT OE ASSESSMENT COMPLETE, SEE INTERVENTION SPREADSHEET FOR COMPLETE DETAILS. RECEIVED PT WITH TRACH AND VENTILATOR. VSS WNL. PT ALERT AND ORIENTED TO SELF, FAMILY AND SITUATION. PT DOES NOT APPEAR TO BE IN DISTRESS. IV SITE BENIGN. F/C DRAINING TO GRAVITY. SUCTION AND BVM AT BEDSIDE. RECEIVED PT ON SPECIALTY MATTRESS. BED LOCKED AND IN LOWEST POSITION, SAFETY PRECAUTIONS IN PLACE. WILL MONITOR PT CAREFULLY.
[2018-10-29] MEDS ORDERED: TPN PER PHARMACY IV NR ×10 (20:00)
--- NOTE | 2018-10-29 20:32 | NUR ---
Respiratory note: PT STATES THAT HE DOES NOT WANT TO BE ON THE TRACH COLLAR FOR THE REST OF THE NIGHT, THAT HE IS TOO TIRED. WILL CONTINUE TO MONITOR.
[2018-10-29] MEDS: TEMAZEPAM 15 MG CAP PO PRN (22:39)
[2018-10-30] VITALS (37 sets, daily range): BP systolic 133–160; BP diastolic 64–92
[2018-10-30] MEDS: ACCU-CHEK COMFORT CURVE STRIP VI SCH ×4 (00:12→18:14)
[2018-10-30] MEDS: IPRATROPIUM BROM 0.5 MG/2.5ML INH SOL NEB SCH ×4 (00:12→18:40)
[2018-10-30] MEDS: ACETYLCYSTEINE 10 %(100MG/ML) SOL 4ML NEB SCH ×4 (00:12→18:40)
[2018-10-30] MEDS: ALBUTEROL SULF 2.5 MG/0.5ML(0.5%) NEB SOLN NEB SCH ×4 (00:12→18:40)
--- NOTE | 2018-10-30 02:42 | NUR ---
OLIVO OLIVO REMOVED PER MD ORDER. UNABLE TO REPLACE OLIVO AT THIS TIME. CATHETER WILL NOT ADVANCE PAST PROSTATE. CONDOM CATH PLACED ON PT AT THIS TIME. EDUCATION PROVIDED TO PT. PT INSTRUCTED TO ALERT RN IF PT FEELS PAIN OR ANY DISCOMFORT R/T CONDOM CATH. PT VERBALIZED UNDERSTANDING. Addendum: 10/30/18 at 0444 by DANIELE CORDON RN 800 MLS URINE EMPTIED FROM OLIVO PRIOR TO REMOVAL
[2018-10-30 04:26] LABS: Basophils # (auto) 0 uL; Basophils % (auto) 0.2 % (0.0-2.0); Eosinophils # (auto) 0 uL; Eosinophils % (auto) 0.2 % (0.0-7.0); Hematocrit 28.8 % (41.0-53.0); Hemoglobin 9.5 g/dL (13.5-17.5); Lymphocytes # (auto) 0.8 uL; Lymphocytes % (auto) 4.2 % (10.0-50.0); Mean Corpuscular Hemoglobin 31.5 pg (28.0-32.0); Mean Corpuscular Hgb Conc. 33.2 g/dL (32.0-36.0); Mean Corpuscular Volume 95.1 fL (80.0-100.0); Monocytes # (auto) 1.7 uL; Monocytes % (auto) 8.7 % (0.0-12.0); Neutrophils # (auto) 16.7 uL; Neutrophils % (auto) 86.7 % (37.0-80.0); Nucleated Red Blood Cells % 0.1 %; Platelet Count (auto) 376 10^3/uL (140-450); Red Blood Cells 3.03 10^6/uL (4.5-5.90); Red Cell Distribution Width 17.6 % (11.8-14.3); White Blood Cell 19.2 10^3/uL (4.4-10.8)
[2018-10-30 04:41] LABS: % Iron Saturation 20.2 % (20-55)
[2018-10-30 04:43] LABS: Potassium 4.1 mmol/L (3.5-5.1)
[2018-10-30 04:46] LABS: Albumin 2.4 g/dL (3.4-5.0); Bilirubin, Total 0.4 mg/dL (0.2-1.0); Calcium 8.3 mg/dL (8.5-10.1); Total Protein 5.7 g/dL (6.4-8.2)
[2018-10-30 04:49] LABS: Ferritin > 1650.0 ng/mL (10-322); Phosphorus 3.1 mg/dL (2.5-4.90)
[2018-10-30 04:50] LABS: Folate (Folic Acid) 10.78 ng/mL (5.38-24)
[2018-10-30] MEDS: HYDROcodone-ACET 5/325MG TAB PO PRN ×3 (04:56→20:07)
[2018-10-30] MEDS: GABAPENTIN 300 MG CAP PO SCH ×3 (05:47→21:32)
[2018-10-30] MEDS: METOCLOPRAMIDE HCL 5MG/ml INJ 2ml VIAL IV SCH ×3 (05:47→21:31)
[2018-10-30] MEDS: InsuLIN REG 1unit/0.01ml Soln (100units/ml) SC SCH ×4 (05:47→18:13)
--- NOTE | 2018-10-30 07:31 | NUR ---
RESIDUALS ASSESSED AT 2000, 0000, AND 0400. NO RESIDUALS ASPIRATED ON ASSESSMENT. TF RUNNING AT 10 MLS.
--- NOTE | 2018-10-30 08:00 | NUR ---
OPENING NOTE Received patient in bed resting while watching television, awake and alert, nodded or shook his head in order to answer yes or no,mouths words to communicate as well, able to follow simple commands, pupils reactive to light and moves upper extremities slowly and exhibits weakness.Tracheostomy Shiley 8.0 with ventilator PC mode, no S/S of distress/SOB.Sinus tachycardia on bedside monitor in the 80-90's, pulses palpable on upper/lower extremities, no edema observed to lower extremities but edema to the right arm secondary to DVT. Peg tube to the abdomen infusing Glucerna at 10ml/hr, zero residual aspirated:increased Glucerna to 15ml/hr will continue to monitor residuals. PICC line on left upper arm, clean, dry and intact infusing with Normal saline at TKO. Condom catheter attached to patient secondary to NOC nurse unable to replace cruz catheter: No urine output since 3AM. Patient denies any discomfort regarding bladder. Multiple wounds see wound assessment. Bed in low position, call light within reach, all alarms are audible, fall and safety precaution in place. Instructed on POC and to call for assist PRN, will continue to monitor for changes Q1hr and PRN.
--- NOTE | 2018-10-30 08:20 | NUR ---
PT TAKEN OFF VENTILATOR AND PLACED ON 30% COOL MYST VIA TRACH COLLAR, PER DR ROTHMAN. PT TOLERATING WELL. 100% O2 SATS, HR 88 BPM, RR22 BPM, BP 157/58, BS ARE CLEAR. STEFANIE NG AT BEDSIDE. WILL CONTINUE TO MONITOR PT.
--- NOTE | 2018-10-30 08:20 | NUR ---
RESPIRATORY RT Lashell at bedside and placed patient on trach collar at 30% sating 100%; patient tolerating well. Will continue to monitor patient.
--- NOTE | 2018-10-30 09:40 | NUR ---
RESPIRATORY RT Lashell paged secondary to patients requests to have trach collar off, went into room to speak to patient and patient looks at then nods to this RN that yes he does want to trach collar off. Awaiting for RT Lashell to arrive into room 107.
--- NOTE | 2018-10-30 09:45 | NUR ---
RESPIRATORY RT Lashell at bedside and placed patient back on to PC mode on ventilator patient tolerating well and sating 98%, will continue to monitor patient.
[2018-10-30] MEDS: VORICONAZOLE INJ 200 MG in D5W 5% 250 ML IV SCH ×2 (10:00→21:32)
[2018-10-30] MEDS: SODIUM CHLOR 0.9% PF (SALINE LOCK) 10ML VIAL/SYR IV SCH ×2 (10:00→21:31)
[2018-10-30] MEDS: PANTOPRAZOLE 40 MG/10 ML VIAL INJ IV SCH ×2 (10:12→21:31)
[2018-10-30] MEDS: NYSTATIN (MOUTH-THROAT) 500,000 UNITS/5 ML SUSP MT SCH ×2 (10:12→21:32)
[2018-10-30] MEDS: LISINOPRIL 10 MG TAB PO SCH (10:12)
[2018-10-30] MEDS: LEVOFLOXACIN 500MG 100 ML IV SCH (10:12)
[2018-10-30] MEDS: ENOXAPARIN SOD 60 MG/0.6 ML SYRINGE SC SCH ×2 (10:13→21:32)
--- NOTE | 2018-10-30 12:00 | NUR ---
NUTRITION Checked residual in PEG tube aspirated 10ml of residuals and increased feedings to 20ml/hr. Will continue to monitor residuals.
--- NOTE | 2018-10-30 12:05 | NUR ---
RESPIRATORY RT Lashell at bedside and placed patient on trach collar sating 99%, patient appears to be tolerating well. Will continue to monitor patient.
--- NOTE | 2018-10-30 12:25 | NUR ---
MD Dr. Duarte at bedside update on patient condition with new orders, MD to input into system. MD aware of no urine output since 3AM and NOC nurse unsuccessful in inserting new Jane catheter.MD spoke to patients , Susi and son Saurabh; Questions/concerns answered by MD.
[2018-10-30] MEDS ORDERED: SODIUM CHLORIDE 0.9% 250 ML IV ONE (12:30)
--- NOTE | 2018-10-30 12:30 | NUR ---
PHYSICAL THERAPY Physical therapy paged to assist patient to sit on the side of the bed per MD orders.
[2018-10-30] MEDS: SODIUM CHLORIDE 0.9% 1,000 ML IV SCH (12:45)
--- NOTE | 2018-10-30 13:00 | NUR ---
PHYSICAL THERAPY Per Keyonna WATTS physical therapist at bedside and was able to assist patient to the side of the bed, patient tolerated for 15 minutes.
--- NOTE | 2018-10-30 14:00 | NUR ---
RESPIRATORY RT Lashell at bedside and placed patient back on to PC mode on ventilator patient tolerating well and sating 99%, will continue to monitor patient.
--- NOTE | 2018-10-30 14:30 | NUR ---
BLADDER SCANNER Checked bladder for retention: 242ml per scanner. Patient denies any discomfort.
--- NOTE | 2018-10-30 16:00 | NUR ---
PLACED PT ON 30% COOL MYST TRACH COLLAR. PT TOLERATING WELL. HR 90 BPM, [id number], BP 153/78, 98% O2 SATS. NO RESPIRATORY DISTRESS NOTED. WILL CONTINUE TO MONITOR PT.
--- NOTE | 2018-10-30 16:00 | NUR ---
FAMILY/RESPIRATORY/NUTRITION Received phone call from , Susi, correct password provided updated on patient condition. RT at bedside and placed patient on trach collar patient tolerating well sating 95%. Will continue to monitor patient closely. Checked residuals aspirated 20ml will continue tube feeding at current rate of 20ml/hr.
--- NOTE | 2018-10-30 16:25 | NUR ---
guille Braden, transferred patient to room 221-B. Vital signs stable. All belongings with patient. Addendum: 10/30/18 at 1627 by BERENICE CORONA RN Wrong patient.
--- NOTE | 2018-10-30 18:15 | NUR ---
ELIMINATION Patient's condom catheter fell off, soiled bed, complete linen change done, patient tolerated well.
--- NOTE | 2018-10-30 19:45 | NUR ---
SHIFT OPENING RECEIVED PATIENT AWAKE ALERT AND ORIENTED X4, NON VERBAL DUE TO TRACH. ON VENTILATOR. NO DISTRESS NOTED. COMPLAINS OF RIGHT LEG PAIN 10/13, WILL MEDICATE PER ORDER. PEG TUBE RUNNING GLUCERNA AT 20 ML/H. 15 ML OF RESIDUALS NOTED. CONDOM CATH NOTED TO BE OFF. PLACED ON PATIENT. PICC LINE 3 LUMEN INFUSING NS AT 60 ML/H. PHYSICAL ASSESSMENT COMPLETED, SEE INTERVENTIONS. INSTRUCTED ON POC AND TO CALL FOR ASSIST NEEDED. WILL CLOSELY MONITOR.
--- NOTE | 2018-10-30 22:00 | NUR ---
PICC Line Dressing Changes PICC line dressing change done with a sterile technique. Cleansed with chloraprep scrub/betadine. Stat lock, and bio-patch as available. Occlusive dressing applied.
[2018-10-31] VITALS (30 sets, daily range): BP systolic 133–161; BP diastolic 35–99
--- NOTE | 2018-10-31 00:10 | NUR ---
MORNING HYGIENE CARE FULL BED BATH PERFORMED WITH CHG WIPES AND WARM SOAPY WASH CLOTHES. GOWN CHANGED. FULL LINEN CHANGED. PATIENT REPOSITIONED FOR COMFORT. TOLERATED IT WELL.
[2018-10-31] MEDS: ACCU-CHEK COMFORT CURVE STRIP VI SCH ×4 (00:11→18:14)
[2018-10-31] MEDS: InsuLIN REG 1unit/0.01ml Soln (100units/ml) SC SCH ×4 (00:11→18:14)
--- NOTE | 2018-10-31 00:20 | NUR ---
REPORT GIVEN AND CARE ENDORSED TO GURJIT WATTS.
[2018-10-31] MEDS: IPRATROPIUM BROM 0.5 MG/2.5ML INH SOL NEB SCH ×4 (00:42→18:49)
[2018-10-31] MEDS: ACETYLCYSTEINE 10 %(100MG/ML) SOL 4ML NEB SCH ×4 (00:43→18:49)
[2018-10-31] MEDS: ALBUTEROL SULF 2.5 MG/0.5ML(0.5%) NEB SOLN NEB SCH ×4 (00:43→18:49)
--- NOTE | 2018-10-31 01:00 | NUR ---
ASSESSMENT PATIENT IS AAOX4, MOVES ALL EXTREMITIES. TOLERATING VENT. LUNGS ARE COARSE. VITAL SIGNS ARE STABLE. TOLERATING FEEDING. CONDOM CATHETER IN PLACE. WOUNDS DRESSINGS ARE CLEAN DRY AND INTACT.
[2018-10-31] MEDS: MORPHINE SULF INJ 2 MG/ML SYRINGE 1ML IV PRN ×3 (01:27→22:20)
--- NOTE | 2018-10-31 01:45 | NUR ---
SLEEPING PAIN MED WAS GIVEN AND PT IS SLEEPING.
--- NOTE | 2018-10-31 06:00 | NUR ---
FEEDING NO RESIDUAL,TOLERATING FEEDINGS. PT IS COMFORTABLE. VITAL SIGNS ARE STABLE.
[2018-10-31] MEDS: METOCLOPRAMIDE HCL 5MG/ml INJ 2ml VIAL IV SCH ×4 (06:01→22:19)
[2018-10-31] MEDS: GABAPENTIN 300 MG CAP PO SCH ×3 (06:01→22:19)
[2018-10-31 06:43] LABS: Basophils # (auto) 0 uL; Basophils % (auto) 0.3 % (0.0-2.0); Eosinophils # (auto) 1.4 uL; Eosinophils % (auto) 9.2 % (0.0-7.0); Hemoglobin 9.3 g/dL (13.5-17.5); Lymphocytes # (auto) 0.9 uL; Lymphocytes % (auto) 5.6 % (10.0-50.0); Mean Corpuscular Hemoglobin 31.5 pg (28.0-32.0); Mean Corpuscular Hgb Conc. 33.2 g/dL (32.0-36.0); Monocytes # (auto) 1.7 uL; Monocytes % (auto) 11.2 % (0.0-12.0); Neutrophils # (auto) 11.2 uL; Neutrophils % (auto) 73.7 % (37.0-80.0); Platelet Count (auto) 435 10^3/uL (140-450); Red Blood Cells 2.95 10^6/uL (4.5-5.90); Red Cell Distribution Width 17.3 % (11.8-14.3); White Blood Cell 15.2 10^3/uL (4.4-10.8)
[2018-10-31] MEDS: SODIUM CHLORIDE 0.9% 1,000 ML IV SCH (06:51)
--- NOTE | 2018-10-31 08:00 | NUR ---
OPENING NOTE Received patient in bed resting while watching television, awake and alert, nodded or shook his head in order to answer yes or no,mouths words to communicate as well, able to follow simple commands, pupils reactive to light and moves upper extremities slowly and exhibits weakness.Tracheostomy Shiley 8.0 with ventilator PC mode on stand by at this moment secondary to RT Shivani at bedside and placed patient on trach collar at 30% sating 95%, no S/S of distress/SOB.Sinus tachycardia on bedside monitor in the 90's-100's, pulses palpable on upper/lower extremities, no edema observed to lower extremities but edema to the right arm secondary to DVT. Peg tube to the abdomen infusing Glucerna at 40ml/hr, zero residual aspirated:increased Glucerna to 50ml/hr will continue to monitor residuals. PICC line on left upper arm, clean, dry and intact infusing with Normal saline at 60ml/hr.(PICC line dressing changed last night). Condom catheter attached to patient and draining clear yellow urine. Multiple wounds see wound assessment. Bed in low position, call light within reach, all alarms are audible, fall and safety precaution in place. Instructed on POC and to call for assist PRN, will continue to monitor for changes Q1hr and PRN.
--- NOTE | 2018-10-31 08:00 | NUR ---
Respiratory note: TOOK PT OFF VENT AND PLACED ON 40% COOL AEROSOL TRACH COLLAR. PT TOLERATING CHANGES WELL WITH HR 99, RR 26, POX 97%. PT APPEARS COMFORTABLE, NO S/S OF RESPIRATORY DISTRESS. EXPLAINED TO PT WILL LEAVE HIM ON TRACH COLLAR FOR 2 HOURS AND RETURN AT [address] BACK ON VENTILATOR, PT NODDED IN AGREEMENT. STEFANIE NG AT BEDSIDE AND AWARE OF CHANGES. WILL CONTINUE TO MONITOR.
[2018-10-31] MEDS: HYDROcodone-ACET 5/325MG TAB PO PRN (08:16)
--- NOTE | 2018-10-31 09:30 | NUR ---
FAMILY Patients at bedside updated on patient condition.
[2018-10-31] MEDS: LEVOFLOXACIN 500MG 100 ML IV SCH (09:49)
[2018-10-31] MEDS: VORICONAZOLE INJ 200 MG in D5W 5% 250 ML IV SCH ×2 (09:49→22:20)
[2018-10-31] MEDS: ENOXAPARIN SOD 60 MG/0.6 ML SYRINGE SC SCH ×2 (09:49→22:19)
[2018-10-31] MEDS: NYSTATIN (MOUTH-THROAT) 500,000 UNITS/5 ML SUSP MT SCH ×2 (09:49→22:19)
[2018-10-31] MEDS: PANTOPRAZOLE 40 MG/10 ML VIAL INJ IV SCH ×2 (09:50→22:19)
[2018-10-31] MEDS: LISINOPRIL 10 MG TAB PO SCH (09:50)
[2018-10-31] MEDS: SODIUM CHLOR 0.9% PF (SALINE LOCK) 10ML VIAL/SYR IV SCH ×2 (09:51→22:20)
--- NOTE | 2018-10-31 10:05 | NUR ---
RESPIRATORY RT Shivani at bedside to place patient back on to ventilator PC mode sating 94%, appears to be tolerating well with no signs/symptoms of respiratory distress. Will continue to monitor patient.
--- NOTE | 2018-10-31 10:05 | NUR ---
Respiratory note: PLACE PT BACK ON VENTILATOR ON PREVIOUS SETTINGS. PT TOLERATING WELL. ALARMS SET AND AUDIBLE. BREATH SOUNDS CLEAR/DIMINISHED, NO SUCTION AT THIS TIME. STEFANIE NG AND PT'S FAMILY AT BEDSIDE, AWARE OF CHANGES. NOTIFIED PT OF PLAN TO TAKE OFF VENT AND DO TRACH COLLAR AGAIN AFTER 2 HOURS. PT NODDED IN AGREEMENT. WILL CONTINUE TO MONITOR.
--- NOTE | 2018-10-31 10:45 | NUR ---
Nutrition Follow-up Notes Wt.: 58.0 kg Pt`s s/p trach with no family by bedside. pt is currently on EN support with Glucerna @ 40 ml.hr providing additional 1152 kcals and 57 gm proteins. pt with inadequate EN support as it meets 53-64% kcals and 61-72% proteins. pt is now off PN support Est. Needs IBW (72 kg): 7072-8257 kcal (25-30 kcal/kgBW), 72-93 gms pro (1.0-1.3 gms/kgBW r/t severe hypoalb). Will continue to monitor pertinent labs and reassess nutrient need prn Labs: GLU 209 H, BUN 21 H, CA 8.2 L, ALB 2.4 L. Skin: Atilio scale 9, high risk pt with multiple skin tears and scabs and pressure ulcer buttock and sacrum per RN doc. refer to notes fro details GI: Pt had 2 BM yesterday per filling operator. PES: Altered nutrition related lab values r/t acute/chronic medical condition aeb elev BUN A1C, hypercapnia, hyperglycemia, Increased nutrient needs r/t current chronic medical condition aeb pt`s with cancer underwt and NPO intubated with severe hypoalb Will continue to monitor NPO status, EN tolerance, skin status, pertinent labs and weight trend. F/u in 2-3 days. Rec.: 1.) advance diet as medically feasible. 2) advance EN support with Glucerna @ 70 ml./hr per MD approval as pt tolerates. 3) consider prostat 1 packet bid. 4) consider MVI.C bid. 5) refer to CDE on DC. 6) continue current plan of care
--- NOTE | 2018-10-31 11:15 | NUR ---
WOUND CARE Wound nurse Jamee RN at bedside, assessed wounds and re-dressed wounds, patient tolerated well. Complete linen change done.
--- NOTE | 2018-10-31 11:30 | NUR ---
ELIMINATION Patient has voided into condom catheter and urine leaked all over patient. Condom catheter removed and urinal given to patient. Informed patient to use call light when needing to use urinal for assistance.
--- NOTE | 2018-10-31 11:35 | NUR ---
WOUND CARE NOTE: Wound care in to see patient for reevaluation of wounds. Patient continue resting on air bed in ICU Rm. 107. He's on vent via trach. Patient is awake, able to communicate needs by nodding and pointing. Patient appears to be in no pain using Malloy Rebollar Faces Pain Scale. His Atilio score is 9. Patient's at bedside. Skin/wound assessment done with the assistance of patient's nurse, STEFANIE Mosley. Patient's L medial forearm wound from previous blister open to 2 x1 cm. Wound bed is covered with black/brown thin necrotic tissue, tony wound is pink, scant serous drainage, no odor noted. Rt upper arm skin tear is now resolved and display intact pink scar tissue. Multiple scars, scabs from previous blisters and shingles lesions continue to improve, clean and dry. His Rt groin wound is also now dry and has intact brown scab. Wounds to R posterior upper buttocks/hip area are improving as well, closed with scar with small open area to proximal aspect. Patient's medial sacrum pressure injury looks improving also. Wound measuring 3x3cm , pink with thin brown scab, no drainage/odor noted. R posterior upper thigh/lower buttock pressure injury continue to display 0.8x 0.8 cm open wound with no measurable depth. Wound bed is pale pink with tiny brown slough, brown pigmented tony wound, no drainage/odor noted. R posterior upper thigh wound remain the same, display3.8x4cm pressure injury. Wound bed is 50% pale pink, 50% black/brown slough, tony wound is pink, minimal serous drainage noted, no odor noted. Cleansed multiple open wounds to Lt medial forearm, sacrum, L and Rt posterior upper thigh and changed the dressing per MD order. Stage 1 pressure injury to patient's L dorsal foot measuring 1x0.5cm remain intact with pink surrounding skin. DTI (1.5x0.8cm)to R posterior ankle/heel area looks improving also. Wound remain intact, covered with dark brown scab, clean and dry. Patient's at bedside is aware of patient's multiple skin issue and also noted improvement of wounds in exception of wound to L upper posterior thigh. Photograph of mentioned wounds are taken for reference. Patient is on tube feeding and Dietary is on board. Repositioned patient for comfort on his back per his request, redistributed pressure points with pillows. Patient tolerated well. Patient's at bedside. RECOMMENDATIONS: Discontinue dressing change to Rt upper arm skin tear as wound is now close with scars per MD order, Continuation of all other wound care orders prescribed by MD, continue with skin/wound plan of care, continue monitoring by wound care while patient is hospitalized. Addendum: 10/31/18 at 1618 by Jamee Granger RN Amended: Links added.
--- NOTE | 2018-10-31 12:00 | NUR ---
NUTRITION Checked residuals zero aspirated increased feedings to 60ml/hr. Will continue to monitor residuals.
--- NOTE | 2018-10-31 12:05 | NUR ---
Respiratory note: TOOK PT OFF VENT AND PLACED ON 35% COOL AEROSOL TRACH COLLAR. PT TOLERATING CHANGES WELL WITH HR 91, RR 28, POX 100%. NO S/S OF RESPIRATORY DISTRESS. ASKED PT IF HE IS COMFORTABLE, PT NODDED HIS HEAD. MEDNEB TX GIVEN. BREATH SOUNDS DIMINISHED CRACKLES ON LEFT UPPER LOBE. DR. ROTHMAN, RN BERENICE, AND PT'S AT BEDSIDE. PER DR. ROTHMAN, WILL TRY TO LEAVE PT'S ON TRACH COLLAR FOR LONGER INTERVALS OF TIME UNTIL BEDTIME, TOLERATED. WILL ATTEMPT CURRENT TRACH COLLAR FOR 2.5 HRS, EXPLAINED TO PT AND , PT ACKNOWLEDGE WITH HEAD NOD.
--- NOTE | 2018-10-31 12:05 | NUR ---
RESPIRATORY RT Shivani at bedside and placed patient on trach collar at 35% sating 100%, patient appears to be tolerating well.
[2018-10-31] MEDS ORDERED: POTASSIUM EFFERVESENT TAB 25 MEQ GT ONE (12:15)
[2018-10-31] MEDS ORDERED: FUROSEMIDE 20 MG/2 ML VIAL IV ONE (12:15)
--- NOTE | 2018-10-31 12:15 | NUR ---
MD Dr. Duarte at bedside updated on patient condition with new orders, MD to input into system. MD spoke to patient and patients , Susi, regarding plan of care. Questions and concerns answered by .
--- NOTE | 2018-10-31 13:40 | NUR ---
PHYSICAL THERAPY AT BEDSIDE WITH PT. WILL CONTINUE TO MONITOR
--- NOTE | 2018-10-31 14:05 | NUR ---
MD Dr. Wong at bedside updated on patient condition with no new orders, but was notified that he will be signing off on the case. MD spoke to patient regarding plan of care.
--- NOTE | 2018-10-31 14:11 | NUR ---
PT STILL TOLERATING TRACH COLLAR WELL, NO S/S OF RESPIRATORY DISTRESS. HR 97, RR 28, POX 97%. BREATH SOUNDS DIMINISHED, NO SUCTION NEEDED. ASKED PATIENT IF HE FEELS TIRED, PT SHOOK HIS HEAD NO. WILL CONTINUE TO LEAVE PT ON TRACH COLLAR, TOLERATED. STEFANIE NG MADE AWARE. WILL CONTINUE TO MONITOR.
--- NOTE | 2018-10-31 15:15 | NUR ---
ELIMINATION Patient used call light, upon entering room patient had voided in urinal with 800ml of clear yellow urine.
--- NOTE | 2018-10-31 15:55 | NUR ---
FAMILY Received phone call from Susi, italo , correct password provided and updated on patient progress since shes left this afternoon.
--- NOTE | 2018-10-31 16:05 | NUR ---
NUTRITION Checked residuals zero aspirated increased feedings to 70ml/hr. Will continue to monitor residuals.
--- NOTE | 2018-10-31 18:05 | NUR ---
ELIMINATION Patient had large loose brown bowel movement, tony care provided with the assistance of Shayy WATTS and partial linen change done. Patient refusing to put on gown at this time.
--- NOTE | 2018-10-31 20:20 | NUR ---
Patient bathe/linen change Patient given complete bath. Skin integrity assessed for any changes. Linens changed. Patient repositioned for comfort.
[2018-10-31] MEDS: LORazepam 2MG/ML-1ML VIAL IV PRN (22:21)
[2018-11-01] VITALS (28 sets, daily range): BP systolic 46–161; BP diastolic 52–78
[2018-11-01] MEDS: ACETYLCYSTEINE 10 %(100MG/ML) SOL 4ML NEB SCH ×4 (00:17→19:04)
[2018-11-01] MEDS: IPRATROPIUM BROM 0.5 MG/2.5ML INH SOL NEB SCH ×4 (00:17→19:04)
[2018-11-01] MEDS: ALBUTEROL SULF 2.5 MG/0.5ML(0.5%) NEB SOLN NEB SCH ×4 (00:17→19:04)
[2018-11-01] MEDS: ACCU-CHEK COMFORT CURVE STRIP VI SCH ×5 (00:31→22:07)
[2018-11-01] MEDS: InsuLIN REG 1unit/0.01ml Soln (100units/ml) SC SCH ×5 (00:33→22:07)
--- NOTE | 2018-11-01 01:15 | NUR ---
RECTAL TUBE INSERTION PATIENT IS HAVING LIQUID BROWN STOOL. RECTAL TUBE INSERTED TO PROTECT HIS SKIN.
--- NOTE | 2018-11-01 04:30 | NUR ---
RECTAL TUBE REMOVED PATIENT REFUSED TO KEEP RECTAL TUBE IN AND HE SAID THAT IT HURTS. BENEFITS EXPLAINED TO THE PATIENT BUT HE STILL DOESN'T WANT IT.REMOVED RECTAL TUBE PER PATIENT'S REQUEST.
[2018-11-01] MEDS: METOCLOPRAMIDE HCL 5MG/ml INJ 2ml VIAL IV SCH (06:00)
[2018-11-01] MEDS: GABAPENTIN 300 MG CAP PO SCH ×3 (06:01→21:52)
[2018-11-01 06:39] LABS: Hematocrit 29.4 % (41.0-53.0); Hemoglobin 9.6 g/dL (13.5-17.5); Mean Corpuscular Hemoglobin 30.9 pg (28.0-32.0); Mean Corpuscular Hgb Conc. 32.7 g/dL (32.0-36.0); Mean Corpuscular Volume 94.2 fL (80.0-100.0); Platelet Count (auto) 435 10^3/uL (140-450); Red Blood Cells 3.12 10^6/uL (4.5-5.90); Red Cell Distribution Width 17.4 % (11.8-14.3); White Blood Cell 21.6 10^3/uL (4.4-10.8)
--- NOTE | 2018-11-01 06:42 | NUR ---
RT NOTE: PT. TOOK OFF VENT AND PLACED ON COOL AEROSOL TRACH MASK AT 10LPM AND 35% FIO2. RN MAHIN AWARE. PT. TOLERATING WELL. PT. HR 108, RR 20, POX 99%. DRAIN SPONGE CHANGED WITHOUT INCIDENT. PT. DID NOT WANT TO BE SUCTIONED AT THIS TIME. TRACH SECURED WITH TRACH TIES AND SUTURES. SLIGHT REDNESS NOTED AROUND SUTURES. BREATHING TX. ADMINISTERED WITH NO ADVERSE REACTIONS. BREATH SOUNDS ARE CLEAR T/O. OBTURATED AND BVM WITH O2 SOURCE AT BEDSIDE.
[2018-11-01 06:48] LABS: Band Neutrophils % (manual) 0; Basophils % (manual) 0 (0.0-2.0); Blast Cells 0; Metamyelocytes % 0; Myelocytes % 0; Promyelocytes % 0; Reactive Lymphocytes 0
--- NOTE | 2018-11-01 08:00 | NUR ---
OPENING NOTE Received patient in bed resting with eyes closed,easily arousable: awake and alert, nodded or shook his head in order to answer yes/no,mouths words to communicate as well, able to follow simple commands, pupils reactive to light and moves upper extremities slowly and exhibits weakness.Tracheostomy Shiley 8.0 on trach collar at 35% sating 99%, no S/S of distress/SOB.Sinus tachycardia on bedside monitor in the 90's-100's, pulses palpable on upper/lower extremities, no edema observed to lower extremities but edema to the right arm secondary to DVT. Peg tube to the abdomen infusing Glucerna at 70ml/hr which is goal rate, zero residual aspirated tolerating well;will continue to monitor residuals. PICC line on left upper arm, clean, dry and intact infusing with Normal saline at TKO. Patient able to use urinal. Patient had small loose brown loose stool: tony care provided and partial linen change done with the assistance of Triny WATTS, patient tolerated well. Multiple wounds see wound assessment. Bed in low position, call light within reach, all alarms are audible, fall and safety precaution in place. Instructed on POC and to call for assist PRN, will continue to monitor for changes Q1hr and PRN.
[2018-11-01 08:55] LABS: Eosinophils % (manual) 12 (0-7); Lymphocytes % (manual) 2 (10.0-50.0); Monocytes % (manual) 3 (0-12)
[2018-11-01] MEDS: VORICONAZOLE INJ 200 MG in D5W 5% 250 ML IV SCH (09:39)
[2018-11-01] MEDS: NYSTATIN (MOUTH-THROAT) 500,000 UNITS/5 ML SUSP MT SCH ×2 (09:39→21:51)
[2018-11-01] MEDS: ENOXAPARIN SOD 60 MG/0.6 ML SYRINGE SC SCH (09:39)
[2018-11-01] MEDS: LEVOFLOXACIN 500MG 100 ML IV SCH (09:39)
[2018-11-01] MEDS: PANTOPRAZOLE 40 MG/10 ML VIAL INJ IV SCH ×2 (09:39→21:51)
[2018-11-01] MEDS: LISINOPRIL 10 MG TAB PO SCH (09:40)
--- NOTE | 2018-11-01 09:42 | NUR ---
RT NOTE: FIO2 DECREASED TO .30 FROM .35. FLOW DECREASED TO 8LPM. RN BERENICE AWARE. PT. TOLERATING WELL. PT. HR. 105, RR 22, POX 99%
--- NOTE | 2018-11-01 09:42 | NUR ---
RESPIRATORY RT Viri at bedside and decreased FIO2 to 30% and flow rate to 8 liters. Patient sating 99% with no signs/symptoms of respiratory distress.
--- NOTE | 2018-11-01 09:45 | NUR ---
ELIMINATION Patient had a moderate loose brown bowel movement. Patsy care provided and partial linen change done with the assistance of Camelia WATTS. Patient also voided 600ml of clear yellow urine in urinal.
[2018-11-01] MEDS: SODIUM CHLOR 0.9% PF (SALINE LOCK) 10ML VIAL/SYR IV SCH ×2 (10:17→22:19)
[2018-11-01] MEDS: cloNIDine 0.2 mg/24hr 7DAY PATCH TD SCH (10:17)
[2018-11-01] MEDS: HYDROcodone-ACET 5/325MG TAB PO PRN ×2 (11:03→20:13)
--- NOTE | 2018-11-01 12:38 | NUR ---
RT NOTE: ETS FOR SMALL, THICK, WHITE SECRETIONS. DRAIN SPONGE CHANGED WITHOUT INCIDENT.
[2018-11-01] MEDS: MORPHINE SULF INJ 2 MG/ML SYRINGE 1ML IV PRN (13:27)
[2018-11-01] MEDS ORDERED: VANCOMYCIN PER PHARMACY 0 MG IV SCH (14:45)
--- NOTE | 2018-11-01 14:45 | NUR ---
MD Dr. Duarte at bedside updated on patient condition with new orders, MD to input into system. MD called , Susi, and spoke to her regarding plan of care. Questions/concerns answered by MD. Will continue to monitor patient closely.
[2018-11-01] MEDS: FLUCONAZOLE 200MG/100ML 100 ML IV SCH (15:09)
--- NOTE | 2018-11-01 15:10 | NUR ---
ELIMINATION Patient requested bedpan, small loose brown bowel movement, tony-care provided and partial linen change done with the assistance of Triny WATTS.
[2018-11-01] MEDS: VANCOMYCIN 1GM/250ML 250 ML IV SCH (16:00)
--- NOTE | 2018-11-01 17:00 | NUR ---
RT NOTE: TRACH CARE PERFORMED BY STERILE PROCEDURE WITHOUT INCIDENT. DRAIN SPONGE CHANGED, INNER CANNULA CLEANED. ETS FOR SMALL, THICK, WHITE SECRETIONS. DRAIN BAG EMPTIED.
--- NOTE | 2018-11-01 20:15 | NUR ---
REPORTS PAIN TO RIGHT LOWER LEG: NORCO PRN GIVEN.
--- NOTE | 2018-11-01 20:20 | NUR ---
OPENING NOTE: SLEEPING, BUT AROUSABLE. ORIENTED X4. APHASIC DUE TO TRACH, BUT ABLE TO COMMUNICATE BY MOUTHING THE WORDS. NSR WITH BBB, HR 90s. SBP 120-130 ON RIGHT CALF. 8.0 SHILEY, ON 35% FiO2 VIA TRACH COLLAR. LS COARSE, AND RHONCHI THROUGHOUT. EVEN AND UNLABORED BREATHING. STRONG PRODUCTIVE COUGH. ABD SOFT. NORMOACTIVE BS. +FLATUS. LBM EARLIER TODAY. PEG TO LEFT ABDOMEN, CDI, AND PATENT. GLUCERNA TF RUNNING AT 70 ML/HR. MINIMAL GASTRIC RESIDUALS. VOIDING VIA URINAL. SEE SKIN AND WOUND FLOWSHEET FOR ASSESSMENT. LEFT UPPER ARM PICC, CDI, AND PATENT BUT SLUGGISH WITH BLOOD RETURN. INITIALLY DENIED PAIN BUT LATER IN ASSESSMENT ASKED [facility] FOR PAIN MEDICATION FOR RIGHT LOWER LEG. FLOATED HEELS TO RELIEVE PRESSURE. REINFORCED POC. MAINTAINED PATIENT SAFETY: BED LOCKED AND IN THE LOWEST POSITION, BED ALARM ON, CALL LIGHT WITHIN REACH, FREQUENT VISUAL CHECKS. ENCOURAGED PATIENT TO USE CALL LIGHT TO VERBALIZE NEEDS. PLAN TO PLACE PATIENT BACK ON VENTILATOR AROUND 2200. PATIENT AGREEABLE TO POC. WILL CONT CARE.
--- NOTE | 2018-11-01 21:04 | NUR ---
PAIN REASSESSMENT: SLEEPING, EVEN AND UNLABORED BREATHING. VSS. WILL CONT CARE.
[2018-11-01] MEDS: cefTAZidime 1 GM in SODIUM CHL 0.9% 50 ML IV SCH (21:51)
[2018-11-01] MEDS: APIXABAN 5 MG TAB PO SCH (21:52)
[2018-11-01] MEDS: Glucerna 1.2 Cal 1Liter BOTTLE GT SCH (21:52)
[2018-11-01] MEDS: TEMAZEPAM 15 MG CAP PO PRN (21:52)
--- NOTE | 2018-11-01 22:07 | NUR ---
SCHEDULED 0000 INSULIN GIVEN EARLY TO HELP FACILITATE SLEEP
--- NOTE | 2018-11-01 23:10 | NUR ---
REPORTS CURRENT VENT SETTING (IMV MODE) IS TOO DIFFICULT TO BREATHE, RR 50s - BELKIS RT INFORMED
--- NOTE | 2018-11-01 23:20 | NUR ---
PATIENT STILL NOT TOLERATING IMV MODE - WILL PLACE PATIENT BACK ON TRACH COLLAR AND INFORM [employer] HOSPITALIST
[2018-11-02] VITALS (26 sets, daily range): BP systolic 111–165; BP diastolic 51–110
--- NOTE | 2018-11-02 00:12 | NUR ---
TOLERATING TRACH COLLAR: SpO2>96%. EVEN AND UNLABORED BREATHING. RR IN LOW 20s. VSS. WILL CONT CARE
[2018-11-02] MEDS: ALBUTEROL SULF 2.5 MG/0.5ML(0.5%) NEB SOLN NEB SCH ×4 (00:21→19:18)
[2018-11-02] MEDS: ACETYLCYSTEINE 10 %(100MG/ML) SOL 4ML NEB SCH ×4 (00:21→19:18)
[2018-11-02] MEDS: IPRATROPIUM BROM 0.5 MG/2.5ML INH SOL NEB SCH ×4 (00:21→19:18)
--- NOTE | 2018-11-02 00:56 | NUR ---
SPOKE WITH ADAM MEJÍA: NOTIFIED THAT PATIENT WAS NOT TOLERATING SIMV ON THE VENT AND PATIENT IS BACK ON TRACH AND TOLERATING WELL. OK PER ADAM MEJÍA.
--- NOTE | 2018-11-02 01:35 | NUR ---
SBP NOW 140/69 Addendum: 11/02/18 at 0201 by Deepika Aldrich RN RN MISTAKEN ENTRY
--- NOTE | 2018-11-02 02:01 | NUR ---
VOIDED X1 AND SATURATED THE CHUX - PARTIAL BED BATH, AND FULL LINEN CHANGE COMPLETED
--- NOTE | 2018-11-02 02:05 | NUR ---
WOUND CARE: LEFT ISCHIUM/HIP AREA: REMOVED DRESSING. CLEANSED WITH SOAP AND WATER. PAT DRY. WOUND BED DUSKY WITH AREAS OF ESCHAR. COVERED WITH GENTLE OPTIFOAM. SACRUM/COCCYX: REMOVED DRESSING. CLEANSED WITH SOAP AND WATER. PAY DRY. WOUND PINK AND DUSKY. COVERED WITH GENTLE OPTIFOAM. RIGHT ILIAC CREST AREA: REMOVED DRESSING. CLEANSED WITH SOAP AND WATER. PAT DRY. MULTIPLE SMALL ABRASIONS. COVERED WITH OPTIFOAM
--- NOTE | 2018-11-02 02:35 | NUR ---
PATIENT PLACED ON BED AVILA PER HIS REQUEST
[2018-11-02] MEDS: HYDROcodone-ACET 5/325MG TAB PO PRN ×4 (02:43→21:37)
--- NOTE | 2018-11-02 03:03 | NUR ---
UNABLE TO HAVE BM - VERY SMALL SMEAR
--- NOTE | 2018-11-02 03:46 | NUR ---
SPOKE WITH PATIENT'S : AFTER PASSWORD VERIFIED, UPDATED ON PATIENT'S STATUS AND EVENTS THROUGHOUT THE NIGHT. ANSWERED ALL QUESTIONS ABLE. WILL CONT CARE
[2018-11-02] MEDS: VANCOMYCIN 1GM/250ML 250 ML IV SCH ×2 (03:55→16:45)
--- NOTE | 2018-11-02 03:55 | NUR ---
ROUNDED: LABS DRAWN. SLEEPING, EVEN AND UNLABORED BREATHING. NO PAIN BEHAVIORS IDENTIFIED. VSS. WILL CONT CARE
--- NOTE | 2018-11-02 05:12 | NUR ---
INQUIRED WITH LAB ABOUT RESULTS, PER LAB THEY WILL BE PROCESSED NOW
[2018-11-02 05:20] LABS: Hematocrit 27.8 % (41.0-53.0); Hemoglobin 9.1 g/dL (13.5-17.5); Mean Corpuscular Hemoglobin 31.2 pg (28.0-32.0); Mean Corpuscular Hgb Conc. 32.6 g/dL (32.0-36.0); Mean Corpuscular Volume 95.7 fL (80.0-100.0); Platelet Count (auto) 371 10^3/uL (140-450); Red Cell Distribution Width 17.6 % (11.8-14.3); White Blood Cell 17.2 10^3/uL (4.4-10.8)
[2018-11-02 05:38] LABS: Albumin 2.4 g/dL (3.4-5.0); BUN/Creatinine Ratio 51.6; Potassium 3.6 mmol/L (3.5-5.1)
[2018-11-02 05:41] LABS: Basophils % (manual) 0 (0.0-2.0); Bilirubin, Total 0.3 mg/dL (0.2-1.0); Blast Cells 0; Metamyelocytes % 0; Myelocytes % 0; Promyelocytes % 0; Reactive Lymphocytes 0; Total Protein 5.6 g/dL (6.4-8.2)
[2018-11-02] MEDS: InsuLIN REG 1unit/0.01ml Soln (100units/ml) SC SCH ×3 (06:12→18:28)
[2018-11-02] MEDS: cefTAZidime 1 GM in SODIUM CHL 0.9% 50 ML IV SCH ×3 (06:12→21:36)
[2018-11-02] MEDS: ACCU-CHEK COMFORT CURVE STRIP VI SCH ×3 (06:12→18:28)
[2018-11-02] MEDS: GABAPENTIN 300 MG CAP PO SCH ×3 (06:12→21:38)
--- NOTE | 2018-11-02 06:13 | NUR ---
WOUND CARE: SACRUM/COCCYX: REMOVED DRESSING. CLEANSED WITH SOAP AND WATER. PAY DRY. WOUND PINK AND DUSKY. COVERED WITH GENTLE OPTIFOAM. RIGHT HEEL: REMOVED DRESSING, CLEANSED WITH SOAP AND WATER. PAT DRY. WOUND BED DUSKY. COVERED WITH GENTLE OPTIFOAM
--- NOTE | 2018-11-02 06:13 | NUR ---
MODERATE LOOSE BM X1
--- NOTE | 2018-11-02 06:34 | NUR ---
CLOSING NOTE: TOLERATING TRACH COLLAR, VSS. WILL ENDORSE CARE TO DAY SHIFT.
[2018-11-02 06:51] LABS: Band Neutrophils % (manual) 2; Eosinophils % (manual) 12 (0-7); Lymphocytes % (manual) 5 (10.0-50.0); Monocytes % (manual) 6 (0-12)
--- NOTE | 2018-11-02 07:30 | NUR ---
OPENING NOTE SHIFT REPORT GIVEN AND CARE ENDORSED TO MP WATTS Addendum: 11/02/18 at 1218 by BENNY CARRERA RN RN OPENING NOTE REPORT RECEIVED AND CARE ASSUMED FROM MP WATTS
--- NOTE | 2018-11-02 07:34 | NUR ---
REPORT AND CARE ENDORSED TO STEFANIE CHUNG
[2018-11-02] MEDS: FLUCONAZOLE 200MG/100ML 100 ML IV SCH (09:22)
[2018-11-02] MEDS: SODIUM CHLOR 0.9% PF (SALINE LOCK) 10ML VIAL/SYR IV SCH ×2 (09:22→21:42)
[2018-11-02] MEDS: APIXABAN 5 MG TAB PO SCH ×2 (10:13→21:38)
[2018-11-02] MEDS: NYSTATIN (MOUTH-THROAT) 500,000 UNITS/5 ML SUSP MT SCH ×2 (10:14→21:38)
[2018-11-02] MEDS: PANTOPRAZOLE 40 MG/10 ML VIAL INJ IV SCH ×2 (10:14→21:37)
[2018-11-02] MEDS: LISINOPRIL 10 MG TAB PO SCH (10:14)
--- NOTE | 2018-11-02 10:45 | NUR ---
DR. CAMPA AT BEDSIDE ORDERS RECEIVED
--- NOTE | 2018-11-02 11:00 | NUR ---
BM PT HAD LARGE LIQUID SOFT BROWN STOOL ON BEDPAN
--- NOTE | 2018-11-02 11:27 | NUR ---
Nutrition Follow-up Notes Wt.: 55.1 kg Pt`s s/p trach with no family by bedside. pt is currently on EN support with Glucerna @ 70 ml.hr providing additional 2016 kcals and 99 gm proteins. pt with adequate EN support as it meets 93-112% kcals and 106-137% proteins. pt tolerating TF well per nursing Est. Needs IBW (72 kg): 6887-4315 kcal (25-30 kcal/kgBW), 72-93 gms pro (1.0-1.3 gms/kgBW r/t severe hypoalb). Will continue to monitor pertinent labs and reassess nutrient need prn Labs: GLU 222 H, CA 8.0 L, ALB 2.4 L. Skin: Atilio scale 16, mod risk pt with multiple skin tears and scabs and pressure ulcer buttock and sacrum per RN doc. refer to notes fro details GI: Pt had 1 BM today per lathe sander. PES: Altered nutrition related lab values r/t acute/chronic medical condition aeb elev BUN A1C, hypercapnia, hyperglycemia, Increased nutrient needs r/t current chronic medical condition aeb pt`s with cancer underwt and NPO intubated with severe hypoalb Will continue to monitor NPO status, EN tolerance, skin status, pertinent labs and weight trend. F/u in 2-3 days. Rec.: 1.) advance diet as medically feasible. 2) consider prostat 1 packet bid. 4) consider MVI.C bid. 5) refer to CDE on DC. 6) continue current plan of care
--- NOTE | 2018-11-02 11:30 | NUR ---
PHYSICAL THERAPY AT BEDSIDE TO ASSIST PT TO CHAIR. PT IS TOLERATING CHAIR BUT IS HAVING A LITTLE TROUBLE BREATHING. WILL COLLABORATE WITH RESPIRATORY. WILL CONTINUE TO MONITOR.
--- NOTE | 2018-11-02 12:30 | NUR ---
PT SAT IN CHAIR FOR ABOUT AN HOUR. PT TOLERATED POORLY. PT FATIGUED, RESPIRATIONS INCREASED, AND PT STATES HAD DIFFICULTY WITH BREATHING.
--- NOTE | 2018-11-02 14:35 | NUR ---
TRACHEOSTOMY CARE DONE WITH NO INCIDENT REPORTED: DRESSING CHANGED, INNER CANNULA CLEANED, SITE CLEANED. SPARE TRACH CARE KIT AT BEDSIDE. SX WITH MODERATE RETURN. WILL CONTINUE TO MONITOR PT.
--- NOTE | 2018-11-02 16:54 | NUR ---
Dr. Duarte stated in our Morning meeting 11/01/18 he will keep Pt until next week and will advised us if Pt is ready to be transfer to [place]. Followed up called with Commissions Analyst Jemima from [facility] and advised her what doctor stated.
[2018-11-02] MEDS: Glucerna 1.2 Cal 1Liter BOTTLE GT SCH (17:14)
--- NOTE | 2018-11-02 19:20 | NUR ---
CLOSING NOTE SHIFT REPORT GIVEN AND CARE ENDORSED TO JONATHAN WATTS
--- NOTE | 2018-11-02 19:45 | NUR ---
30 ML OF RESIDUAL VIA PEG TUBE NOTED, FEEDING STILL ON HOLD TEMPORARILY.
--- NOTE | 2018-11-02 21:59 | NUR ---
NO RESIDUAL NOTED VIA PEG TUBE, MEDS GIVEN. RESTARTED GLUCERNA FEEDING @ 20 ML/HR.
[2018-11-02] MEDS ORDERED: INSULIN LANTUS (GLARGINE) 1 /0.01ml (100units/ml) SC SCH (22:00)
--- NOTE | 2018-11-02 22:55 | NUR ---
RT AT BEDSIDE, PLACED PT ON O2/ NC @ 2L/MIN SAT 100 %. Addendum: 11/02/18 at 2324 by Eva Charles RN WRONG PT
[2018-11-03] VITALS (22 sets, daily range): BP systolic 122–164; BP diastolic 61–93
[2018-11-03] MEDS: ACCU-CHEK COMFORT CURVE STRIP VI SCH ×5 (00:15→23:59)
--- NOTE | 2018-11-03 00:21 | NUR ---
TF INCREASED TO 30ML/HR. NO RESIDUAL NOTED.
[2018-11-03] MEDS: ALBUTEROL SULF 2.5 MG/0.5ML(0.5%) NEB SOLN NEB SCH ×4 (00:27→18:10)
[2018-11-03] MEDS: IPRATROPIUM BROM 0.5 MG/2.5ML INH SOL NEB SCH ×4 (00:27→18:10)
[2018-11-03] MEDS: ACETYLCYSTEINE 10 %(100MG/ML) SOL 4ML NEB SCH ×4 (00:27→18:10)
--- NOTE | 2018-11-03 03:00 | NUR ---
Blood draw done via PICC line, ports flushed well
--- NOTE | 2018-11-03 03:43 | NUR ---
Family updated on pt status of [facility] updated on patient's status and condition after obtaining a password. All questions and concerns addressed, verbalized understanding.
[2018-11-03 03:51] LABS: Hemoglobin 9.3 g/dL (13.5-17.5); Mean Corpuscular Hemoglobin 31.6 pg (28.0-32.0); Mean Corpuscular Hgb Conc. 33.4 g/dL (32.0-36.0); Mean Corpuscular Volume 94.8 fL (80.0-100.0); Platelet Count (auto) 404 10^3/uL (140-450); Red Blood Cells 2.95 10^6/uL (4.5-5.90); Red Cell Distribution Width 16.6 % (11.8-14.3)
[2018-11-03] MEDS: VANCOMYCIN 1GM/250ML 250 ML IV SCH (03:59)
--- NOTE | 2018-11-03 04:00 | NUR ---
30 ML RESIDUAL VIA PEG TUBE NOTED, TF DECREASED TO 25 ML/HR
[2018-11-03 04:11] LABS: Basophils % (manual) 0 (0.0-2.0); Blast Cells 0; Promyelocytes % 0; Reactive Lymphocytes 0
--- NOTE | 2018-11-03 04:28 | NUR ---
MODERATE AMOUNT OF SOFT STOOLS NOTED COMPLETE BED BATH GIVEN, LINENS CHANGED, Z-GUARD APPLIED TO SACRUM AND COVERED WITH OPTIFOAM. REPOSITIONED FOR COMFORT.
--- NOTE | 2018-11-03 04:30 | NUR ---
ORAL AND TRACHEAL SECRETIONS SUCTIONED PRN.
[2018-11-03] MEDS: cefTAZidime 1 GM in SODIUM CHL 0.9% 50 ML IV SCH ×3 (06:20→22:00)
[2018-11-03] MEDS: GABAPENTIN 300 MG CAP PO SCH ×3 (06:20→22:01)
[2018-11-03] MEDS: InsuLIN REG 1unit/0.01ml Soln (100units/ml) SC SCH ×5 (06:21→23:59)
--- NOTE | 2018-11-03 07:25 | NUR ---
OPENING NOTE SHIFT REPORT GET BACK AND ASSUMED CARE OF PT FROM JONATHAN WATTS
--- NOTE | 2018-11-03 08:10 | NUR ---
NO RESIDUAL PT HAD NO RESIDUAL WILL INCREASE RATE OF FEEDING TO TRY TO REACH GOAL OF 70. WILL CONTINUE TO MONITOR
[2018-11-03 08:46] LABS: Band Neutrophils % (manual) 1; Eosinophils % (manual) 8 (0-7); Lymphocytes % (manual) 2 (10.0-50.0); Metamyelocytes % 1; Monocytes % (manual) 6 (0-12); Myelocytes % 2
[2018-11-03] MEDS: HYDROcodone-ACET 5/325MG TAB PO PRN ×2 (09:23→16:28)
[2018-11-03] MEDS: NYSTATIN (MOUTH-THROAT) 500,000 UNITS/5 ML SUSP MT SCH ×2 (09:45→22:00)
[2018-11-03] MEDS: SODIUM CHLOR 0.9% PF (SALINE LOCK) 10ML VIAL/SYR IV SCH ×2 (09:45→22:00)
[2018-11-03] MEDS: FLUCONAZOLE 200MG/100ML 100 ML IV SCH (09:45)
[2018-11-03] MEDS: PANTOPRAZOLE 40 MG/10 ML VIAL INJ IV SCH (09:45)
[2018-11-03] MEDS: LISINOPRIL 10 MG TAB PO SCH (09:46)
[2018-11-03] MEDS: APIXABAN 5 MG TAB PO SCH ×2 (09:46→22:00)
--- NOTE | 2018-11-03 10:15 | NUR ---
PHYSICAL THERAPY AT BEDSIDE PT FEELS FATIGUED AND CAN NOT TOLERATE SITTING IN CHAIR BUT PHYSICAL THERAPY WILL DO FULL RANGE OF MOTION WITH PATIENT IN BED
[2018-11-03] MEDS: VANCOMYCIN 750mg/250ml 250 ML IV SCH ×2 (12:25→20:54)
[2018-11-03] MEDS ORDERED: PANTOPRAZOLE 40 MG/10 ML VIAL INJ IV SCH (13:00)
--- NOTE | 2018-11-03 13:00 | NUR ---
DR. CAMPA AT BEDSIDE NO NEW ORDERS AT THIS TIME
[2018-11-03] MEDS ORDERED: SERTRALINE HCL 50 MG TAB PO ONE (13:30)
[2018-11-03] MEDS: INSULIN LANTUS (GLARGINE) 1 /0.01ml (100units/ml) SC SCH ×2 (14:08→22:01)
--- NOTE | 2018-11-03 16:25 | NUR ---
Respiratory note: TRACH CARE DONE AT TIS TIME. SUTURES REMOVED PER ANODE WORKER CHRISTIANE LARA'S VERBAL ORDER. RN JULIET MADE AWARE OF ALL CHANGES.
--- NOTE | 2018-11-03 19:12 | NUR ---
CLOSING NOTE SHIFT REPORT GIVEN AND CARE ENDORSED TO FABIO AWTTS
[2018-11-03] MEDS: Glucerna 1.2 Cal 1Liter BOTTLE GT SCH (20:00)
--- NOTE | 2018-11-03 20:00 | NUR ---
ALERT.ORIENTED.LUNGS COARSE SUCTIONED TRACH FOR CLEAR SECRETIONS.TRACHEA MIDLINE.ABDOMEN FLAT AND SOFT. RIGHT ARM AND LEFT FOREARM WOUNDS HEALING. PEG SITE CLEANED WITH CHLOROPREP . SMALL AMOUNT OF CAKED BROWN REMOVED FROM PEG SITE. RIGHT UPPER ARM AND LEFT FOREARM WOUNDS HEALING. SHINGLE SITE ON RIGHT THIGH IS 98% HEALED. JUST A FEW SCABS NEED TO FALL OFF. RIGHT LATERAL HEEL WOUND IS CLOSED,DARK, NO DRNG AND OPEN TO AIR. TOP OF LEFT FOOT IS A TINY AREA THAT IS DARK RED, NO DRNG AND HEALING. LEFT POSTERIOR UPPER THIGH IS A HALF DOLLAR WOUND THAT HAS A YELLOW TOP TO IT, SEROUS DRNG AND IS COVERED BY A FOAM DRESSING. COCCYX IS DRY, RED, SCALY. OPTIFOAM ON COCCYX. IS NOW HELPING US WITH TURNING. INCONTINENT OF A LOOSE SOFT LIQUID ANIRUDH. MOVES ARM ABOUT 50% OF STRENGTH. ABLE TO LIFT THEM OFF BED APPROXIMATELY 12 INCHES. MOVES LEGS, BENDS THEM AT KNEE. ABLE TO MOVE FEET WELL.
[2018-11-03] MEDS: MORPHINE SULF INJ 2 MG/ML SYRINGE 1ML IV PRN (21:02)
--- NOTE | 2018-11-03 22:00 | NUR ---
LOOSE ANIRUDH STOOL IN BEDPAN. VSS. REPOSITIONED. MEDS GIVEN. PAIN RELIEF AFTER MORPHINE. HAS BEEN HAVING A LARGE AMOUNT OF PAIN IN THE RIGHT LEG. NSR WITHOUT ECTOPY.
[2018-11-04] VITALS (18 sets, daily range): BP systolic 102–171; BP diastolic 58–91
--- NOTE | 2018-11-04 | NUR ---
RESPIRATORY TREATMENT. CHECKED BENEDICT AREA. NO CHANGE IN WOUNDS. TRACHEA MIDLINE. NSR WITHOUT ECTOPY. PICC LINE SHOWS NO REDNESS OR SWELLING.
[2018-11-04] MEDS: ACETYLCYSTEINE 10 %(100MG/ML) SOL 4ML NEB SCH ×4 (00:06→20:03)
[2018-11-04] MEDS: ALBUTEROL SULF 2.5 MG/0.5ML(0.5%) NEB SOLN NEB SCH ×4 (00:06→20:03)
[2018-11-04] MEDS: IPRATROPIUM BROM 0.5 MG/2.5ML INH SOL NEB SCH ×4 (00:06→20:03)
[2018-11-04] MEDS: TEMAZEPAM 15 MG CAP PO PRN ×2 (00:15→23:06)
--- NOTE | 2018-11-04 04:00 | NUR ---
INCONTINENT OF ANIRUDH SOFT LIQUID. BENEDICT CARE DONE. WOUND CLEANSER USED. LOTION APPLIED TO COCCYX. NEW OPTIFOAM APPLIED. LEFT FOREARM WOUND DRESSING REMOVED. ROLLED EDGE WOUND WITH DARK BASE. SMALL AMOUNT OF SEROUS DRNG. SUCTIONED TRACH FOR WHITE SECRETIONS. NSR-ST 96-100 WITHOUT ECTOPY.
[2018-11-04 04:09] LABS: Hematocrit 27.5 % (41.0-53.0); Hemoglobin 9.3 g/dL (13.5-17.5); Mean Corpuscular Hemoglobin 31.7 pg (28.0-32.0); Mean Corpuscular Hgb Conc. 33.6 g/dL (32.0-36.0); Mean Corpuscular Volume 94.4 fL (80.0-100.0); Platelet Count (auto) 394 10^3/uL (140-450); Red Blood Cells 2.92 10^6/uL (4.5-5.90); Red Cell Distribution Width 16.8 % (11.8-14.3); White Blood Cell 15.9 10^3/uL (4.4-10.8)
[2018-11-04] MEDS: VANCOMYCIN 750mg/250ml 250 ML IV SCH ×3 (04:24→21:35)
--- NOTE | 2018-11-04 04:30 | NUR ---
Respiratory note: TRACH CARE DONE USING STERILE TECHNIQUE WITH AMBU BAG AND MASK AT BEDSIDE. AREA AROUND STOMA CLEANED AND DRIED. INNER CANNULA CLEANED, TRACH TIES ASSESSED, NO SKIN BREAKDOWN NOTED AROUND NECK, NO REDNESS OR SKIN BREAKDOWN SEEN AROUND STOMA. PT TOLERATED WELL. SUCTIONED SMALL THIN CLEAR/WHITE SECRETIONS. AREA DRESSED WITH NEW GAUZE, WILL CONTINUE TO MONITOR.
[2018-11-04 04:37] LABS: BUN/Creatinine Ratio 42.3; Calcium 8.1 mg/dL (8.5-10.1); Potassium 3.8 mmol/L (3.5-5.1)
[2018-11-04 04:55] LABS: Basophils % (manual) 0 (0.0-2.0); Blast Cells 0; Metamyelocytes % 0; Myelocytes % 0; Promyelocytes % 0; Reactive Lymphocytes 0
[2018-11-04] MEDS: ACCU-CHEK COMFORT CURVE STRIP VI SCH ×4 (06:19→23:19)
[2018-11-04] MEDS: InsuLIN REG 1unit/0.01ml Soln (100units/ml) SC SCH ×4 (06:19→23:19)
[2018-11-04] MEDS: GABAPENTIN 300 MG CAP PO SCH ×3 (06:19→22:40)
[2018-11-04] MEDS: cefTAZidime 1 GM in SODIUM CHL 0.9% 50 ML IV SCH ×3 (06:19→22:40)
--- NOTE | 2018-11-04 06:22 | NUR ---
URSULA TRACHEOSTOMY IN SITU, PROPERLY SECURED AND IS PATENT. SPARE UNIT AT BEDSIDE ALONG WITH OBTURATOR. PT IS AWAKE, ALERT AND ORIENTED. TRACH CARE DONE VIA STERILE TECHNIQUE. BAG AND MASK UNIT AT BEDSIDE ALONG WITH O2 SOURCE. INNER CANULA WAS CLEANED. AROUND STOMA CLEANED AND DRY. TRACH GAUZE REPLACED WITHOUT INCIDENT. NO REDNESS, IRRITATION OR SKIN BREAK DOWN NOTED AROUND STOMA. TRACHEOSTOMY SUCTION DONE FOR SMALL AMOUNT OF PALE SECRETION. STRONG GAG REFLEX IS PRESENT. PT TOLERATING WELL. WILL CONTINUE TO MONITOR PT.
[2018-11-04 06:52] LABS: Band Neutrophils % (manual) 1; Eosinophils % (manual) 8 (0-7); Lymphocytes % (manual) 11 (10.0-50.0); Monocytes % (manual) 3 (0-12)
--- NOTE | 2018-11-04 07:45 | NUR ---
RECEIVED REPORT [facility], EYES CLOSED, RESPIRATIONS EVEN AND UNLABORED. AWOKE TO VOICE, ABLE TO ANSER YES/ NOT QUESTIONS. ORIENTED. TRACH PRESENT ON 40% HUMIDIFIED OXYGEN, TRACH COLLAR. VITALS SIGNS STABLE. PATIENT DENIES PAIN AT THIS TIME. BED IN LOW POSITION AND CALL LIGHT WITHIN REACH. INSTRUCTED TO CALL IF NEEDED. PATIENT NODDED YES. IN VIEW OF NURSES STATION. WILL CONTINUE TO MONITOR
[2018-11-04] MEDS: APIXABAN 5 MG TAB PO SCH ×2 (09:49→22:40)
[2018-11-04] MEDS: SERTRALINE HCL 50 MG TAB PO SCH (09:49)
[2018-11-04] MEDS: FAMOTIDINE (10MG/ML) 2ML VL IV SCH (09:49)
[2018-11-04] MEDS: NYSTATIN (MOUTH-THROAT) 500,000 UNITS/5 ML SUSP MT SCH ×2 (09:50→22:00)
[2018-11-04] MEDS: FLUCONAZOLE 200MG/100ML 100 ML IV SCH (09:50)
[2018-11-04] MEDS: LISINOPRIL 10 MG TAB PO SCH (09:50)
[2018-11-04] MEDS: SODIUM CHLOR 0.9% PF (SALINE LOCK) 10ML VIAL/SYR IV SCH ×2 (10:00→22:41)
--- NOTE | 2018-11-04 11:02 | NUR ---
DR ADAMS AT BEDSIDE DISCUSSED PLAN OF CARE WITH PATIENT AND PATIENTS .
[2018-11-04] MEDS: HYDROcodone-ACET 5/325MG TAB PO PRN ×2 (11:25→19:03)
--- NOTE | 2018-11-04 11:34 | NUR ---
PHYSICAL THERAPY AT BEDSIDE PATIENT TO ASSIST PATIENT TO BEDSIDE, DANGLING FEET, SITTING UPRIGHT WITH ASSIST. PATIENT VERY WEAK IN CORE. PATIENT EXPRESSING HAVING A HARD TIME "BREATHING" BUT VITALS REMAINED STABLE. SAT THERE FOR A FEW MINUTES AND THEN PLACED BACK IN BED. WILL CONTINUE TO ENCOURAGE SITTING IN HIGH FOWLERS AND TRYING AGAIN LATER. PATIENT EXPRESSED PAIN IN RIGHT LEG. WILL MEDICATE ORDERED
--- NOTE | 2018-11-04 19:30 | NUR ---
Admit to [facility] admitted to [facility] via bed on bench worker, and portable 02. Patient connected to unit monitoring and oxygen, and weighed by bedscale. Patient oriented to Shivani Boogie, primary RN, unit, room, bed, and unit policies regarding patient care and visiting hours. All questions and concerns addressed, patient verbalized understanding. Pt stable.
[2018-11-04] MEDS: INSULIN LANTUS (GLARGINE) 1 /0.01ml (100units/ml) SC SCH (22:41)
[2018-11-04] MEDS: MORPHINE SULF INJ 2 MG/ML SYRINGE 1ML IV PRN (23:06)
[2018-11-05] VITALS: BP 146/77
[2018-11-05] MEDS: IPRATROPIUM BROM 0.5 MG/2.5ML INH SOL NEB SCH ×4 (00:26→18:47)
[2018-11-05] MEDS: ALBUTEROL SULF 2.5 MG/0.5ML(0.5%) NEB SOLN NEB SCH ×4 (00:26→18:47)
[2018-11-05] MEDS: ACETYLCYSTEINE 10 %(100MG/ML) SOL 4ML NEB SCH ×4 (00:26→18:47)
[2018-11-05 03:33] VITALS: BP 138/64
[2018-11-05] MEDS: HYDROcodone-ACET 5/325MG TAB PO PRN ×4 (04:33→23:54)
[2018-11-05] MEDS: VANCOMYCIN 750mg/250ml 250 ML IV SCH ×3 (04:34→20:00)
[2018-11-05] MEDS: ACCU-CHEK COMFORT CURVE STRIP VI SCH ×4 (06:00→23:47)
[2018-11-05 07:40] VITALS: BP 137/55
[2018-11-05] MEDS: GABAPENTIN 300 MG CAP PO SCH ×3 (07:52→22:27)
[2018-11-05] MEDS: cefTAZidime 1 GM in SODIUM CHL 0.9% 50 ML IV SCH ×3 (07:54→22:25)
[2018-11-05] MEDS: InsuLIN REG 1unit/0.01ml Soln (100units/ml) SC SCH ×4 (07:54→23:47)
--- NOTE | 2018-11-05 08:00 | NUR ---
Pt states would like Pound as soon as he can have it because of the shingles pain. Pt had one BM last night and used urinal on his own. Tolerated tube feeding well. No S/S of distress this shift. Spoke to at approx midnight and she stated she would be in in the morning. Report given to AM shift, care endorsed.
[2018-11-05] MEDS: APIXABAN 5 MG TAB PO SCH ×2 (10:14→22:26)
[2018-11-05] MEDS: SERTRALINE HCL 50 MG TAB PO SCH (10:14)
--- NOTE | 2018-11-05 10:14 | NUR ---
DR HANYE AT BEDSIDE DISCUSSED PLAN OF CARE WITH PATIENT AND PATIENTS
[2018-11-05] MEDS: NYSTATIN (MOUTH-THROAT) 500,000 UNITS/5 ML SUSP MT SCH ×2 (10:15→22:26)
[2018-11-05] MEDS: LISINOPRIL 10 MG TAB PO SCH (10:15)
[2018-11-05] MEDS: FAMOTIDINE (10MG/ML) 2ML VL IV SCH (10:16)
--- NOTE | 2018-11-05 10:20 | NUR ---
PATIENTS MARIA FERNANDA AT BEDSIDE UPDATED ON PLAN OF CARE AND STATUS THROUGHOUT THE NIGHT
[2018-11-05 10:40] LABS: Hematocrit 29.4 % (41.0-53.0); Hemoglobin 9.9 g/dL (13.5-17.5); Mean Corpuscular Hemoglobin 31.7 pg (28.0-32.0); Mean Corpuscular Hgb Conc. 33.7 g/dL (32.0-36.0); Mean Corpuscular Volume 94.3 fL (80.0-100.0); Platelet Count (auto) 440 10^3/uL (140-450); Red Blood Cells 3.11 10^6/uL (4.5-5.90); Red Cell Distribution Width 16.5 % (11.8-14.3); White Blood Cell 18.2 10^3/uL (4.4-10.8)
[2018-11-05 10:44] LABS: Band Neutrophils % (manual) 0; Basophils % (manual) 0 (0.0-2.0); Blast Cells 0; Myelocytes % 0; Promyelocytes % 0; Reactive Lymphocytes 0
[2018-11-05 10:57] LABS: BUN/Creatinine Ratio 23.9; Calcium 8.4 mg/dL (8.5-10.1); Potassium 4.1 mmol/L (3.5-5.1)
[2018-11-05 11:02] LABS: Eosinophils % (manual) 3 (0-7); Lymphocytes % (manual) 4 (10.0-50.0); Metamyelocytes % 1; Monocytes % (manual) 12 (0-12)
[2018-11-05] MEDS: MICAFUNGIN SODIUM 100 MG in SODIUM CHL 0.9% 100 ML IV SCH (11:23)
[2018-11-05] MEDS: SODIUM CHLOR 0.9% PF (SALINE LOCK) 10ML VIAL/SYR IV SCH ×2 (11:23→22:14)
[2018-11-05 11:40] VITALS: BP 157/76
--- NOTE | 2018-11-05 14:00 | NUR ---
PATIENTS MARIA FERNANDA CALLED FOR UPDATE PROVIDED PASSWORD AND UPDATED ON CURRENT CONDITION.
--- NOTE | 2018-11-05 15:06 | NUR ---
PHYSICAL THERAPY AT BEDSIDE
--- NOTE | 2018-11-05 15:30 | NUR ---
PATIENTS SON AT BEDSIDE
[2018-11-05 15:40] VITALS: BP 95/77
--- NOTE | 2018-11-05 16:24 | NUR ---
SPOKE WITH PHARMACY FOR 3RD TIME REGARDING [facility] IV MEDICATION SOYFREEZE OPERATOR STATES SHE WILL SEND NOW
--- NOTE | 2018-11-05 19:10 | NUR ---
OPENING SHIFT RECEIVED REPORT FROM DAY SHIFT RN. ASSUMED CARE OF PATIENT. PATIENT IN BED RESTING WITH NO SIGNS OR SYMPTOMS OF SOB, PAIN OR DISTRESS. CURRENTLY ON 35% HUMIDIFIED AIR VIA TRACH COLLAR 8 SHILEY, 02 SAT - 100%. LEFT UPPER PICC X3 - CLEAN/DRY/INTACT. PEG TUBE IN PLACE, RESIDUAL CHECKED. REPOSITIONED FOR COMFORT. UPDATED PATIENT ON PLAN OF CARE. BED IN LOWEST POSITION, SIDE RAILS UP X2, CALL LIGHT WITHIN REACH. WILL CONTINUE TO MONITOR.
[2018-11-05 20:00] VITALS: BP 130/72
[2018-11-05] MEDS: INSULIN LANTUS (GLARGINE) 1 /0.01ml (100units/ml) SC SCH (22:27)
[2018-11-05] MEDS: TEMAZEPAM 15 MG CAP PO PRN (23:04)
[2018-11-06] VITALS (14 sets, daily range): BP systolic 102–147; BP diastolic 51–95
[2018-11-06] MEDS: IPRATROPIUM BROM 0.5 MG/2.5ML INH SOL NEB SCH ×4 (00:27→19:16)
[2018-11-06] MEDS: ALBUTEROL SULF 2.5 MG/0.5ML(0.5%) NEB SOLN NEB SCH ×4 (00:27→19:16)
[2018-11-06] MEDS: ACETYLCYSTEINE 10 %(100MG/ML) SOL 4ML NEB SCH ×4 (00:28→19:16)
[2018-11-06] MEDS: MORPHINE SULF INJ 2 MG/ML SYRINGE 1ML IV PRN ×3 (03:33→17:43)
[2018-11-06] MEDS: VANCOMYCIN 750mg/250ml 250 ML IV SCH (03:33)
[2018-11-06 05:41] LABS: Hemoglobin 9.5 g/dL (13.5-17.5)
[2018-11-06 05:43] LABS: Hematocrit 28.5 % (41.0-53.0); Mean Corpuscular Hgb Conc. 33.2 g/dL (32.0-36.0); Mean Corpuscular Volume 93.6 fL (80.0-100.0); Platelet Count (auto) 439 10^3/uL (140-450); Red Blood Cells 3.05 10^6/uL (4.5-5.90); Red Cell Distribution Width 16.4 % (11.8-14.3); White Blood Cell 18.6 10^3/uL (4.4-10.8)
[2018-11-06 05:49] LABS: Basophils % (manual) 0 (0.0-2.0); Blast Cells 0; Myelocytes % 0; Promyelocytes % 0; Reactive Lymphocytes 0
[2018-11-06 05:55] LABS: BUN/Creatinine Ratio 34.4; Calcium 8.5 mg/dL (8.5-10.1); Potassium 3.9 mmol/L (3.5-5.1)
[2018-11-06] MEDS: ACCU-CHEK COMFORT CURVE STRIP VI SCH ×3 (06:00→17:43)
[2018-11-06] MEDS: InsuLIN REG 1unit/0.01ml Soln (100units/ml) SC SCH ×3 (06:33→17:43)
[2018-11-06] MEDS: cefTAZidime 1 GM in SODIUM CHL 0.9% 50 ML IV SCH (06:33)
[2018-11-06] MEDS: GABAPENTIN 300 MG CAP PO SCH ×3 (06:33→22:15)
[2018-11-06 06:52] LABS: Band Neutrophils % (manual) 4; Eosinophils % (manual) 1 (0-7); Lymphocytes % (manual) 11 (10.0-50.0); Metamyelocytes % 2; Monocytes % (manual) 8 (0-12)
--- NOTE | 2018-11-06 08:00 | NUR ---
Opening Shift Note Assumed care of patient, awake and alert, lying on the bed. No S/S of distress/SOB or pain, still coughing sometimes, continue O2 35% 9 LPM with trach collar mask, O2 saturation 99%. PEG running with Glucerna 70ml/hr, will continue to monitor for content and N/V. Instructed on POC and to call for assist PRN, will continue to monitor for changes Q1hr and PRN.
--- NOTE | 2018-11-06 08:27 | NUR ---
Dr. Cornell at the bedside, seen patient at this time, no new order noted.
--- NOTE | 2018-11-06 08:40 | NUR ---
Position changed, partial linen changed, mouth care provided, suction at this time for clear airway, moderate of sputum with white color, patient lying up with elevated HOB for preventing of aspiration, will continue to monitor and care.
--- NOTE | 2018-11-06 09:34 | NUR ---
His at the bedside.
[2018-11-06] MEDS: MICAFUNGIN SODIUM 100 MG in SODIUM CHL 0.9% 100 ML IV SCH (10:12)
[2018-11-06] MEDS: APIXABAN 5 MG TAB PO SCH ×2 (10:13→22:15)
[2018-11-06] MEDS: NYSTATIN (MOUTH-THROAT) 500,000 UNITS/5 ML SUSP MT SCH ×2 (10:13→22:00)
[2018-11-06] MEDS: FAMOTIDINE (10MG/ML) 2ML VL IV SCH (10:13)
[2018-11-06] MEDS: SODIUM CHLOR 0.9% PF (SALINE LOCK) 10ML VIAL/SYR IV SCH ×2 (10:14→22:15)
[2018-11-06] MEDS: SERTRALINE HCL 50 MG TAB PO SCH (10:14)
[2018-11-06] MEDS: LISINOPRIL 10 MG TAB PO SCH (10:14)
--- NOTE | 2018-11-06 11:15 | NUR ---
Dr. Eastman at the bedside, seen and examined patient at this time, plan of care discussed with patient and his at the bedside, received new orders, patient made aware. Plan to start IV peripheral line then off Picc line. Patient agreed with the plan. Addendum: 11/06/18 at 1208 by RAIN VOSS RN RN D/C IV antibiotic, patient and his made aware.
[2018-11-06] MEDS: HYDROcodone-ACET 5/325MG TAB PO PRN ×2 (11:30→20:19)
--- NOTE | 2018-11-06 11:40 | NUR ---
Sent specimen of Sputum to Lab.
--- NOTE | 2018-11-06 11:50 | NUR ---
Dr. Sequeira at the bedside, seen patient at this time. No new order from .
--- NOTE | 2018-11-06 12:14 | NUR ---
re-assessment Per consult [facility] overton. Per Susiglenna puckett its okay for Arnav evaluation. Addendum: 11/09/18 at 1421 by Gissel Stewart Amended: Links added.
--- NOTE | 2018-11-06 13:20 | NUR ---
IV insertion IV access obtained, via clean sterile technique by inserting 22 gauge catheter at left forearm after 1 attempt. IV secured properly. No trauma to site. Patient tolerated procedure well.
--- NOTE | 2018-11-06 14:01 | NUR ---
Patient lying on the bed, sleeping at this time, will let patient taking a nap then will remove PICC line when he wake up.
--- NOTE | 2018-11-06 14:30 | NUR ---
PICC line removal with clean sterile technique, catheter fully intact. Pressure dressing applied to site. Patient tolerated well.
--- NOTE | 2018-11-06 16:42 | NUR ---
D/C Planning Per consult for Arnav. Contacted and faxed medical records to Arnav Ph: ) Fax: ). Per Key from [facility] referral has been received and she will evaluate Pt tomorrow morning 10/07/18. Will follow up tomorrow
--- NOTE | 2018-11-06 17:55 | NUR ---
Mouth care provided, suction at this time for clear airway, got white color of sputum with small amount, position changed as well, Morphine given for pain management, will continue to monitor and care.
--- NOTE | 2018-11-06 19:05 | NUR ---
OPENING SHIFT RECEIVED REPORT FROM DAY SHIFT RN. ASSUMED CARE OF PATIENT. PATIENT IN BED RESTING WITH NO SIGNS OR SYMPTOMS OF SOB, PAIN OR DISTRESS. CURRENTLY ON 9L 35% HUMIDIFIED 02, 02 SAT - 99%. PEG TUBE VERIFIED VIA AUSCULTATION, MINIMAL RESIDUAL PULLED BACK. REPOSITIONED FOR COMFORT. UPDATED PATIENT ON PLAN OF CARE. LEFT HAND IV - CLEAN/DRY/INTACT. BED IN LOWEST POSITION, SIDE RAILS UP X 2, CALL LIGHT WITHIN REACH. WILL CONTINUE TO MONITOR. Addendum: 11/07/18 at 0347 by LIYAH TRINH RN RN *CURRENTLY 9L 35% HUMIDIFIED 02 VIA TRACH.
[2018-11-06] MEDS: INSULIN LANTUS (GLARGINE) 1 /0.01ml (100units/ml) SC SCH (22:16)
[2018-11-06] MEDS: TEMAZEPAM 15 MG CAP PO PRN (22:18)
[2018-11-07] MEDS: ALBUTEROL SULF 2.5 MG/0.5ML(0.5%) NEB SOLN NEB SCH ×5 (00:27→23:32)
[2018-11-07] MEDS: IPRATROPIUM BROM 0.5 MG/2.5ML INH SOL NEB SCH ×5 (00:27→23:32)
[2018-11-07] MEDS: ACETYLCYSTEINE 10 %(100MG/ML) SOL 4ML NEB SCH ×5 (00:28→23:32)
[2018-11-07] MEDS: InsuLIN REG 1unit/0.01ml Soln (100units/ml) SC SCH ×5 (00:33→23:59)
--- NOTE | 2018-11-07 03:37 | NUR ---
CALLED, PASSWORD VERIFIED. UPDATED HER ON PLAN OF CARE.
[2018-11-07 04:02] VITALS: BP 110/50
[2018-11-07] MEDS: HYDROcodone-ACET 5/325MG TAB PO PRN ×3 (04:47→17:28)
[2018-11-07] MEDS: ACCU-CHEK COMFORT CURVE STRIP VI SCH ×5 (06:17→23:59)
[2018-11-07] MEDS: GABAPENTIN 300 MG CAP PO SCH ×3 (06:17→21:20)
[2018-11-07 07:26] LABS: Hemoglobin 10.5 g/dL (13.5-17.5); White Blood Cell 18.3 10^3/uL (4.4-10.8)
[2018-11-07 07:30] LABS: Hematocrit 31.7 % (41.0-53.0); Mean Corpuscular Hemoglobin 31.2 pg (28.0-32.0); Mean Corpuscular Hgb Conc. 33.1 g/dL (32.0-36.0); Mean Corpuscular Volume 94.3 fL (80.0-100.0); Platelet Count (auto) 494 10^3/uL (140-450); Red Blood Cells 3.36 10^6/uL (4.5-5.90); Red Cell Distribution Width 16.5 % (11.8-14.3)
[2018-11-07 07:43] LABS: Basophils % (manual) 0 (0.0-2.0); Blast Cells 0; Promyelocytes % 0; Reactive Lymphocytes 0
[2018-11-07 07:45] VITALS: BP 126/65
--- NOTE | 2018-11-07 07:50 | NUR ---
Opening Shift Note Assumed care of patient, lying on the bed, sleeping at this time. No S/S of distress/SOB or pain, will continue to monitor for changes Q1hr and PRN.
--- NOTE | 2018-11-07 09:20 | NUR ---
Mouth care provided, position changed, complaining of pain at right leg, medication for pain management given, will continue to monitor and care. PEG no content, flushed patent.
[2018-11-07] MEDS: NYSTATIN (MOUTH-THROAT) 500,000 UNITS/5 ML SUSP MT SCH ×2 (09:23→21:20)
[2018-11-07] MEDS: FAMOTIDINE (10MG/ML) 2ML VL IV SCH (09:23)
[2018-11-07] MEDS: SERTRALINE HCL 50 MG TAB PO SCH (09:24)
[2018-11-07] MEDS: APIXABAN 5 MG TAB PO SCH ×2 (09:24→21:20)
[2018-11-07] MEDS: SODIUM CHLOR 0.9% PF (SALINE LOCK) 10ML VIAL/SYR IV SCH ×2 (09:25→21:20)
[2018-11-07] MEDS: LISINOPRIL 10 MG TAB PO SCH (09:25)
[2018-11-07 09:35] LABS: Band Neutrophils % (manual) 1; Eosinophils % (manual) 6 (0-7); Lymphocytes % (manual) 6 (10.0-50.0); Metamyelocytes % 1; Myelocytes % 3
[2018-11-07 09:36] LABS: Monocytes % (manual) 6 (0-12)
[2018-11-07] MEDS: MORPHINE SULF INJ 2 MG/ML SYRINGE 1ML IV PRN ×2 (11:05→21:21)
--- NOTE | 2018-11-07 11:12 | NUR ---
Medication for pain management given, patient sitting up on the edge of the bed around 5 minutes with PT, position changed, will continue to monitor and care.
--- NOTE | 2018-11-07 11:27 | NUR ---
D/C Planning Followed up with Key José. Key José stated she spoke to the Pt at bedside. Key José stated Pt is medical clear in there end and they will be anticipating his arrival upon d/c.
--- NOTE | 2018-11-07 11:30 | NUR ---
Nutrition Follow-up Notes Wt.: 53.7 kg Pt`s s/p trach with no family by bedside. pt is currently on EN support with Glucerna @ 70 ml.hr providing additional 2016 kcals and 99 gm proteins. pt with adequate EN support as it meets 93-112% kcals and 106-137% proteins. pt tolerating TF well per nursing Est. Needs IBW (72 kg): [id number] kcal (25-30 kcal/kgBW), 72-93 gms pro (1.0-1.3 gms/kgBW r/t severe hypoalb). Will continue to monitor pertinent labs and reassess nutrient need prn Labs: GLU 253 H. rest lab wnl for today Skin: Atilio scale 16, mod risk pt with multiple skin tears and scabs and pressure ulcer buttock and sacrum per RN doc. refer to notes fro details GI: Pt had 1 BM 11/06 per documentation designer. PES: Altered nutrition related lab values r/t acute/chronic medical condition aeb elev BUN A1C, hypercapnia, hyperglycemia, Increased nutrient needs r/t current chronic medical condition aeb pt`s with cancer underwt and NPO intubated with severe hypoalb Will continue to monitor NPO status, EN tolerance, skin status, pertinent labs and weight trend. F/u in 2-3 days. Rec.: 1.) advance diet as medically feasible. 2) consider prostat 1 packet bid. 4) consider MVI.C bid. 5) refer to CDE on DC. 6) continue current plan of care
[2018-11-07 11:40] VITALS: BP 121/71
--- NOTE | 2018-11-07 12:46 | NUR ---
Respiratory note: SPEAKING VALVE PLACED, PATIENT TOLERATED APPROX 7 MINUTES. PT REQUESTED FOR SPEAKING VALVE TO BE TAKEN OFF AND PLACED BACK ON TRACH COLLAR. PATIENT BECAME A LITTLE ANXIOUS. AT BEDSIDE. WILL TRY AGAIN TOMORROW.
--- NOTE | 2018-11-07 15:30 | NUR ---
Wound care nurse at the bedside.
[2018-11-07 15:35] VITALS: BP 110/60
--- NOTE | 2018-11-07 15:45 | NUR ---
WOUND CARE NOTE: Weekly reevaluation by wound care team. Patient continue resting on specialty bed in Rm [id number]. Patient is awake, able to communicate needs by nodding and pointing. Patient able to state pain level is 6/10 to right leg and is tolerable. Last Atilio score is 15. Assessment and photographs done with the assistance of STEFANIE Johnson. Patient's L medial forearm wound from previous blister remains unchanged at 2 x1 cm. Multiple scars, scabs from previous blisters and shingles lesions continue to improve, clean and dry. His Rt groin wound remains dry and has intact brown scab. Wounds to R posterior upper buttocks/hip area are improving as well, closed with scar with small open area to proximal aspect. Sacrum pressure injury continues to improve. Wound measuring 3x3cm , pink with thin brown scab, no drainage/odor noted. R posterior upper thigh/lower buttock pressure injury continue to display 0.8x 0.8 cm open wound with no measurable depth. Wound bed is pale pink with tiny brown slough, brown pigmented tony wound, no drainage/odor noted. R posterior upper thigh wound remain the same, display3.8x4cm pressure injury. Wound bed is 50% pale pink, 50% black/brown slough, tony wound is pink, minimal serous drainage noted, no odor noted. Patient's L dorsal foot measuring 1x0.5cm remain intact with pink surrounding skin. DTI (1.5x0.8cm)to R posterior ankle/heel area looks improving also. Wound remain intact, covered with dark brown scab, clean and dry. RECOMMENDATIONS: Nursing to continue with previous wound/skin care orders; Wound care team to continue to follow. Addendum: 11/07/18 at 1840 by IRVING KURTZ RN Amended: Links added.
--- NOTE | 2018-11-07 16:22 | NUR ---
Respiratory note: PT REFUSED TRACH CARE, FAMILY AT BEDSIDE. PT IS TRYING TO REST AND DID NOT WANT IT DONE AT THIS TIME, MAYBE TONIGHT. RN NOTIFIED.
--- NOTE | 2018-11-07 17:52 | NUR ---
Mouth care provided, position changed at this time as well. Patient sitting up on the bed, watching TV with his son, no complaining of pain or SOB noted. Continue feeding tube Glucerna 70ml/hr, tolerated well, no N/V noted.
[2018-11-07 20:00] VITALS: BP 99/58
--- NOTE | 2018-11-07 20:00 | NUR ---
SHIFT OPENING NOTE RECEIVED PATIENT AWAKE, ALERT AND ORIENTED X4. NONVERBAL DUE TO TRACH. ON TRACH COLLAR 8 L, 30 % FI02 POX 100%. NO SOB OR DISTRESS NOTED. NPO ON PEG FEEDINGS AT 70 ML/H, 5 ML OF RESIDUALS NOTED. LH 22 G SL. PHYSICAL ASSESSMENT COMPLETED, SEE INTERVENTIONS. INSTRUCTED ON POC AND TO CALL FOR ASSIST NEEDED. BED IS IN THE LOWEST POSITION WITH SIDE RAILS UP X2, CALL LIGHT IS WITHIN REACH.
[2018-11-07] MEDS: INSULIN LANTUS (GLARGINE) 1 /0.01ml (100units/ml) SC SCH (21:21)
[2018-11-07] MEDS: TEMAZEPAM 15 MG CAP PO PRN (21:22)
[2018-11-08] VITALS (7 sets, daily range): BP systolic 102–142; BP diastolic 56–73
--- NOTE | 2018-11-08 | NUR ---
ROUNDS PATIENT LAYING IN BED SLEEPING. NO SOB, DISTRESS OR PAIN NOTED. WILL CONTINUE TO CLOSELY MONITOR.
--- NOTE | 2018-11-08 02:45 | NUR ---
Performed CHJ bath and complete linen change on pt. Oral care was done at this time as well. Pt tolerated it well.
[2018-11-08] MEDS: HYDROcodone-ACET 5/325MG TAB PO PRN ×5 (02:51→21:16)
[2018-11-08] MEDS: ACCU-CHEK COMFORT CURVE STRIP VI SCH ×3 (06:14→17:33)
[2018-11-08] MEDS: InsuLIN REG 1unit/0.01ml Soln (100units/ml) SC SCH ×3 (06:15→17:33)
[2018-11-08] MEDS: GABAPENTIN 300 MG CAP PO SCH ×3 (06:15→21:12)
[2018-11-08] MEDS: ALBUTEROL SULF 2.5 MG/0.5ML(0.5%) NEB SOLN NEB SCH ×3 (06:37→18:03)
[2018-11-08] MEDS: ACETYLCYSTEINE 10 %(100MG/ML) SOL 4ML NEB SCH ×3 (06:37→18:04)
[2018-11-08] MEDS: IPRATROPIUM BROM 0.5 MG/2.5ML INH SOL NEB SCH ×3 (06:37→18:04)
--- NOTE | 2018-11-08 06:55 | NUR ---
END OF SHIFT PATIENT IS LAYING IN BED WATCHING TV. NO SOB OR DISTRESS NOTED. WILL MEDICATE FOR RIGHT LEG PAIN. WILL GIVE REPORT AND ENDORSE CARE TO THE DAY SHIFT RN.
[2018-11-08] MEDS: MORPHINE SULF INJ 2 MG/ML SYRINGE 1ML IV PRN (07:00)
--- NOTE | 2018-11-08 07:30 | NUR ---
RECEIVED PATIENT SITTING UP ON A SPECIALTY MATTRESS, A/O TIMES 4, O2 BY TRACH COLLAR AT 8L AND 30%FIO2, HAS A SIZE 8 -TRACH TO THE NECK, ABLE TO READ LIPS AND MOUTH WORDS, PEG TUBE TO THE ABD WITH GLUCERNA AT 70NML/HR INFUSING BY THE FEEDING PUMP, SALINE LOCK TO THE LEFT HAND 22G FLUSHED AND PATENT, USES THE URINAL, NO COMPLAINTS OF PAIN AT THIS TIME,
--- NOTE | 2018-11-08 08:30 | NUR ---
GLUCERNA INFUSING INTO THE PEG TUBE AT 70ML/HR BY THE FEEDING PUMP,
--- NOTE | 2018-11-08 09:40 | NUR ---
INT TO VISIT WITH THE PATIENT
[2018-11-08] MEDS: LISINOPRIL 10 MG TAB PO SCH (10:00)
--- NOTE | 2018-11-08 10:00 | NUR ---
EXPLAIN MEDICATIONS TO THE PATIENT REGARDING THE DOSAGE, USAGE AND THE SIDE EFFECTS, VERBALIZED THAT HE AND HIS UNDERSTOOD AND MEDS GIVEN ORDERED
[2018-11-08] MEDS: SERTRALINE HCL 50 MG TAB PO SCH (10:09)
[2018-11-08] MEDS: cloNIDine 0.2 mg/24hr 7DAY PATCH TD SCH (10:09)
[2018-11-08] MEDS: FAMOTIDINE 20 MG TAB PO SCH (10:09)
[2018-11-08] MEDS: NYSTATIN (MOUTH-THROAT) 500,000 UNITS/5 ML SUSP MT SCH ×2 (10:09→21:12)
[2018-11-08] MEDS: APIXABAN 5 MG TAB PO SCH ×2 (10:09→21:12)
[2018-11-08] MEDS: SODIUM CHLOR 0.9% PF (SALINE LOCK) 10ML VIAL/SYR IV SCH ×2 (10:10→21:11)
--- NOTE | 2018-11-08 10:30 | NUR ---
PT INTO SEE THE PATIENT AND DOING ROM WITH HIM
--- NOTE | 2018-11-08 11:00 | NUR ---
MEDICATED WITH NORCO FOR PAIN TO THE RT LEG 10/13
--- NOTE | 2018-11-08 11:30 | NUR ---
DR CHURCHHA IN TO SEE THE PATIENT AND STATES HE MAY BE DISCHARGED FOR TRANSFER TO [facility] TOMORROW
--- NOTE | 2018-11-08 12:00 | NUR ---
LEFT AND WENT HOME , STATES SHE WILL BE BACK ABOUT 1600
--- NOTE | 2018-11-08 12:15 | NUR ---
PATIENT STILL HAVING GLUCERNA AT 70ML/HR BY THE PEG TUBE AND TOLERATING THE FEEDINGS
--- NOTE | 2018-11-08 12:44 | NUR ---
Transfer: Angela at [facility] has accepting MD as , no beds as of yet and [facility] is waiting for financial clearance. I contacted Denise at [facility] for financial clearance to let [facility] know [facility] is still waiting Addendum: 11/09/18 at 1340 by Irena Becerril RN CM wrong pt
--- NOTE | 2018-11-08 13:15 | NUR ---
RT AT THE BED SIDE DOING TRACH CARE AND SUCTIONING
--- NOTE | 2018-11-08 14:15 | NUR ---
WATCHING TV, NO CHANGE IN CONDITION
--- NOTE | 2018-11-08 15:09 | NUR ---
SITTING UP IN BED, WATCHING TV, RT DEEP SUCTIONING PATIENT NEEDED AND ALSO, BEING SUCTION BY THE THE NURSE, PATIENT HAS A GOOD COUGH AND BRINGING UP SECRETIONS THROUGH THE TRACH, BUT NEEDS ASSISTANCE AT TIMES
--- NOTE | 2018-11-08 16:25 | NUR ---
MEDICATED FOR PAIN WITH NORCO 8/10 TO THE RT LEG
--- NOTE | 2018-11-08 17:13 | NUR ---
CALLED TO INQUIRE ABOUT THE PATIENT
--- NOTE | 2018-11-08 17:27 | NUR ---
PATIENT SITTING UP IN BED WATCHING TV
--- NOTE | 2018-11-08 18:19 | NUR ---
SITTING UP IN BED, WATCHNG TV, HAVING A BREATHING TREATMENT, A/O TIMES 4, O2 AT 8L AND 30% BY THE TRACH COLLAR, HAS A SIZE 8 TRACH, SALINE LOCK TO THE LEFT HAND 22G, FLUSHED AND PATENT, PEG TUBE TO THE ABD WITH GLUCERNA INFUSING BY THE FEEDING PUMP AT 70ML/HR, ON SPECIALTY BED, USES THE URINAL, , NOT COMPLAINING OF PAIN AT THIS TIME, WILL CONTINUE TO MONITOR AND GIVE REPORT TO THE NEXT SHIFT
--- NOTE | 2018-11-08 20:00 | NUR ---
SHIFT OPENING NOTE RECEIVED PATIENT AWAKE, ALERT AND ORIENTED X4. NONVERBAL DUE TO TRACH. ON TRACH COLLAR 8 L, 30 % FI02 POX 100%. DTS COMPLETED THROUGH TRACH DUE TO LOTS OF WHITE SECRETIONS. NO SOB OR DISTRESS NOTED. NPO ON PEG FEEDINGS AT 70 ML/H, 5 ML OF RESIDUALS NOTED. LH 22 G SL. PHYSICAL ASSESSMENT COMPLETED, SEE INTERVENTIONS. INSTRUCTED ON POC AND TO CALL FOR ASSIST NEEDED. BED IS IN THE LOWEST POSITION WITH SIDE RAILS UP X2, CALL LIGHT IS WITHIN REACH.
[2018-11-08] MEDS: INSULIN LANTUS (GLARGINE) 1 /0.01ml (100units/ml) SC SCH (21:12)
[2018-11-08] MEDS: TEMAZEPAM 15 MG CAP PO PRN (21:17)
[2018-11-09] MEDS: ALBUTEROL SULF 2.5 MG/0.5ML(0.5%) NEB SOLN NEB SCH ×4 (00:23→18:16)
[2018-11-09] MEDS: IPRATROPIUM BROM 0.5 MG/2.5ML INH SOL NEB SCH ×4 (00:23→18:16)
[2018-11-09] MEDS: ACETYLCYSTEINE 10 %(100MG/ML) SOL 4ML NEB SCH ×4 (00:23→18:16)
[2018-11-09] MEDS: ACCU-CHEK COMFORT CURVE STRIP VI SCH ×4 (00:24→17:37)
[2018-11-09] MEDS: InsuLIN REG 1unit/0.01ml Soln (100units/ml) SC SCH ×4 (00:24→17:37)
[2018-11-09 01:08] VITALS: BP 128/63
--- NOTE | 2018-11-09 03:10 | NUR ---
MORNING HYGIENE CARE FULL BED BATH PERFORMED USING CHG WIPES. PATIENT NOTED TO HAVE HAD A BM. BENEDICT CARE PERFORMED. WOUND CARE PERFORMED IN BUTTOCKS AND SACRUM, NEW OPTIFOAMS IN PLACE. GOWN CHANGED. FULL LINEN CHANGED. ORAL CARE DONE. PATIENT REPOSITIONED FOR COMFORT. TOLERATED IT WELL.
[2018-11-09 04:00] VITALS: BP 153/75
[2018-11-09] MEDS: GABAPENTIN 300 MG CAP PO SCH ×2 (05:58→14:02)
[2018-11-09] MEDS: HYDROcodone-ACET 5/325MG TAB PO PRN ×4 (05:59→20:56)
--- NOTE | 2018-11-09 06:50 | NUR ---
END OF SHIFT PATIENT IS DAVID IN BED WATCHING TV. NO SOB, DISTRESS OR PAIN NOTED. REMAINS ON TRACH COLLAR. WILL GIVE REPORT AND ENDORSE CARE TO THE DAY SHIFT RN.
--- NOTE | 2018-11-09 07:30 | NUR ---
RECEIVED PATIENT SITING UP IN BED, A/O TIMES 3, O2 AT 8L BY THE TRACH COLLAR, HAS A SIZE 8 SHILEY TO THE THROAT, PEG TUBE TO THE LLQ WITH GLUCERNA FEEDING AT 70ML/HR INFUSING BY THE FEEDING PUMP, ON A SPECIALTY BED, SCD'S TO TIMMY LEGS, USES THE URINAL, NO COMPLAINTS OF PAIN AT THIS TIME
[2018-11-09 07:35] VITALS: BP 149/78
--- NOTE | 2018-11-09 08:40 | NUR ---
PATIENT'S TRACH SUCTIONED AND, PATIENT IS STILL NOT EATING HAS THE GLUCERNA FEEDING AT 70ML/HR INFUSING INTO THE LLQ OF THE ABD BY THE FEEDING PUMP AT 70ML/HR
--- NOTE | 2018-11-09 09:50 | NUR ---
IN TO VISIT WITH THE PATIENT
[2018-11-09] MEDS: APIXABAN 5 MG TAB PO SCH (10:05)
[2018-11-09] MEDS: NYSTATIN (MOUTH-THROAT) 500,000 UNITS/5 ML SUSP MT SCH (10:05)
[2018-11-09] MEDS: SERTRALINE HCL 50 MG TAB PO SCH (10:05)
[2018-11-09] MEDS: FAMOTIDINE 20 MG TAB PO SCH (10:05)
--- NOTE | 2018-11-09 10:20 | NUR ---
Respiratory note: TRACH CARE NOT DONE AT THIS TIME. PT DID NOT WANT IT DONE.
[2018-11-09] MEDS: SODIUM CHLOR 0.9% PF (SALINE LOCK) 10ML VIAL/SYR IV SCH (10:23)
--- NOTE | 2018-11-09 10:25 | NUR ---
MEDICATIONS DISCUSSED WITH THE PATIENT AND HIS REGARDING THE DOSAGE,USAGE AND THE SIDE EFFECTS, VERBALIZED UNDERSTANDING AND MEDS GIVEN ORDERED, ALSO GAVE NORCO FOR PAIN TO THE RT LEG 10/13
--- NOTE | 2018-11-09 11:16 | NUR ---
DR CHURCHHA HERE TO TALK TO THE AND THE PATIENT AND PATIENT IS BEING TRANSFERRED [facility] TODAY
--- NOTE | 2018-11-09 11:30 | NUR ---
SHIRIN FROM [employer] IN TO TALK TO THE AND STATES THAT ARE WAITING FOR THE AUTHORIZATION FROM THE INSURANCE COMPANY AND SHE WILL CALL ME WITH A BED
[2018-11-09 11:35] VITALS: BP 121/58
--- NOTE | 2018-11-09 12:20 | NUR ---
PATIENT HAD A BM AND BEING CHANGED, WAS INCONTINENT, STILL HERE WITH THE PATIENT
--- NOTE | 2018-11-09 13:17 | NUR ---
LEFT AND WENT HOME, STATES SHE WANTS ME TO CALL HER WHEN HER GETS ABED AND IS GOING TO [place]
--- NOTE | 2018-11-09 14:12 | NUR ---
MEDICATED FOR PAIN TO THE RT LEG WITH NORCO 8/10 , PT IN WORKING WITH THE PATIENT
--- NOTE | 2018-11-09 15:30 | NUR ---
PATIENT SITTING UP IN THE CHAIR STATES HE IS DOING OKAY
--- NOTE | 2018-11-09 15:35 | NUR ---
GOTTEN UP TO THE BSC
--- NOTE | 2018-11-09 15:48 | NUR ---
gotten back into the bed by pt patient is able to stand on his own and move with moderate assistance
[2018-11-09 15:50] VITALS: BP 152/95
--- NOTE | 2018-11-09 15:56 | NUR ---
Nutrition Follow-up Notes Wt.: 52.1 kg today. Pt's on trach collar, denies any discomfort, at bedside who provide pt's additional pertinent information during rounds this morning. Per , pt's used to weigh around 132 lbs, mos likely lost weight r/t his medical condition (CA). 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 Pt's currently NPO with EN support with Glucerna 1.2 Eddie @ 70 ml/hr via PEG tube providing 2016 kcal, 99 gms proteins and 1288 ml free water, tolerates feeding well, no residuals noted by RN this morning. Pt with adequate EN support d/t high initiation rate delivery of concentrated formula aeb current EN infusion meets 93% to 112% of est caloric needs and 86% to 115% proteins needs. Discussed the importance/benefits of EN support while NPO r/t current medical condition and pt and with verbalized understanding. Est. Needs IBW (72 kg): 1148-7304 kcal (25-30 kcal/kgIBW), 86-115 gms pro (1.0-1.6 gms/kgIBW r/t severe hypoalb). Will continue to monitor pertinent labs and reassess nutrient need prn Labs: POC Gluc 210 H; 11/06/18 Gluc 253 H, Cr 0.32 L rest lab wnl Skin: Atilio scale 12, high risk pt with multiple skin tears and scabs and pressure ulcer buttock and sacrum per RN doc. Pls refer to latest electrical assistant's notes for details re: tx plans. GI: Pt had 1 BM 11/06/18 per tool lathe operator. PES: Altered nutrition related lab values r/t acute/chronic medical condition aeb elev BUN A1C, hypercapnia, hyperglycemia, Increased nutrient needs r/t current chronic medical condition aeb pt`s with cancer underwt and NPO intubated with severe hypoalb Will continue to monitor NPO status, EN tolerance, skin status, pertinent labs and weight trend. F/u in 2 to 3 days. Rec.: 1.) If still NPO, continue EN support of Glucerna 1.2 Eddie @ 70 ml/hr goal rate as tolerated to meet at least 75% of est nutrient needs. 2.) Advance gradually to oral diet (per ST's diet recommendation) if medically feasible. 3.) If Prealbumin/Albumin continue trending down, consider Prostat 1 packet BID. 4.) Consider daily MVI with minerals and Asc acid 500 mgs BID. 5.) Refer to CDE/RD for further nutrition educ. and weight monitoring upon discharge. 6.) Continue current plan of care
--- NOTE | 2018-11-09 16:45 | NUR ---
DISCHARGED PHOTOS TAKEN OF ALL WOUNDS
--- NOTE | 2018-11-09 17:14 | NUR ---
son in to visit with the patient
--- NOTE | 2018-11-09 17:34 | NUR ---
D/C Planning Followed up with Podiatry Assistant Maira from [facility] as requested and faxed Physical therapy notes today. Advised ALICIA Rao Pt has a d/c order for today and we need authorization for transportation. practice managers Maira advised she will provide authorization to [employer] transportation Ph: ). Contacted [employer] transportation spoke to Carmel. Carmel from [employer] transportation advised she will call RN in [place] for transportation time. Carmel from [employer] transport provided me with confirmation # [id number]. Advised Carmel from [employer] transportation to set up transport via [employer]. Contacted Rocío from [facility]. Per Rocío from [facility] pt has been accepted to room [address] Perez.
--- NOTE | 2018-11-09 18:16 | NUR ---
Respiratory note: AT BEDSIDE FOR MED NEB TX. PT TOLERATING WELL VIA TRACH MASK. BS ARE COURSE CRACKLES. SXD VIA TRACH FOR MODERATE THICK WHITE/ CLEAR SECRETIONS. AMBU BAG/ MASK AND SPARE TRACH PLACED AT BEDSIDE PER PROTOCOL.
--- NOTE | 2018-11-09 18:23 | NUR ---
PATIENT GOING TO [facility] , RO[address], PATIENT SITTING UP IN BED HAVING BREATHING TREATMENT, O2 BY TRACH COLLAR AT 8L, SIZE 8 TRACH, OLIVO TO GRAVITY, A/O TIMES 4, PEG TUBE WITH GLUCERNA AT 70ML/HR INFUSING BY THE FEEDING PUMP, NO COMPLAINTS OF PAIN AT THIS TIME, WILL CONTINUE TO MONITOR AND GIVE REPORT TO THE NEXT SHIFT
--- NOTE | 2018-11-09 18:26 | NUR ---
Respiratory note: TITRATED FIO2. COOL AEROSOL TO TRACH MASK SET TO DELIVER 28% SET AT 6LPM. STEFANIE Foote MADE AWARE OF TITRATION.
[2018-11-09 19:59] VITALS: BP 126/57
--- NOTE | 2018-11-09 21:53 | NUR ---
Pt left via transport [facility] on gurney, Stable at this time. No S/S of distress. IV removed. [employer] given for pain at 2030, and report given to Fauzia Geiger RN at [place]. All bands removed except No Not use this limb band. Removed from feeding and PEG tube flushed. All belongings sent with pt. Spoke with regarding transport and which room pt with be going too, verbalized understanding. Care endorsed.
== END 2018-11-09 22:00 | disposition short-term general hospital (02) | DRG 4 ==
LOC: ER 09:44 → TELE 09:45 → TELE-CENTR 20:27 → DOU IN ICU 09-28 21:29 → ICU WEST 09-29 04:48 → DOU IN ICU 11-04 19:14
PROVIDERS: ADMIT Internal Medicine; ATTEND Internal Medicine
PROC: 5A1955Z Respiratory Ventilation, Greater than 96 Consecutive Hours (ICD-10-PCS; principal; 2018-09-29)
PROC: 0BH17EZ Insertion of Endotracheal Airway into Trachea, Via Natural or Artificial Opening (ICD-10-PCS; 2018-09-29)
PROC: 02HV33Z Insertion of Infusion Device into Superior Vena Cava, Percutaneous Approach (ICD-10-PCS; 2018-09-29)
PROC: 02HV33Z Insertion of Infusion Device into Superior Vena Cava, Percutaneous Approach (ICD-10-PCS; 2018-10-07)
PROC: 0DH63UZ Insertion of Feeding Device into Stomach, Percutaneous Approach (ICD-10-PCS; 2018-10-17)
PROC: 02HV33Z Insertion of Infusion Device into Superior Vena Cava, Percutaneous Approach (ICD-10-PCS; 2018-10-17)
PROC: 0B110F4 Bypass Trachea to Cutaneous with Tracheostomy Device, Open Approach (ICD-10-PCS; 2018-10-18)
PROC: 0B9F8ZX Drainage of Right Lower Lung Lobe, Via Natural or Artificial Opening Endoscopic, Diagnostic (ICD-10-PCS; 2018-10-21)
PROC: 30233N1 Transfusion of Nonautologous Red Blood Cells into Peripheral Vein, Percutaneous Approach (ICD-10-PCS; 2018-10-26)
DX: A41.9 Sepsis, unspecified organism (principal); R65.21 Severe sepsis with septic shock; G03.0 Nonpyogenic meningitis; N17.0 Acute kidney failure with tubular necrosis; E43 Unspecified severe protein-calorie malnutrition; J18.9 Pneumonia, unspecified organism; G92 Toxic encephalopathy; J96.21 Acute and chronic respiratory failure with hypoxia; E87.1 Hypo-osmolality and hyponatremia; C85.90 Non-Hodgkin lymphoma, unspecified, unspecified site; C83.30 Diffuse large B-cell lymphoma, unspecified site; I82.621 Acute embolism and thrombosis of deep veins of right upper extremity; I82.B11 Acute embolism and thrombosis of right subclavian vein; I82.611 Acute embolism and thrombosis of superficial veins of right upper extremity; J93.9 Pneumothorax, unspecified; F23 Brief psychotic disorder; Z99.11 Dependence on respirator [ventilator] status; E11.22 Type 2 diabetes mellitus with diabetic chronic kidney disease; I12.9 Hypertensive chronic kidney disease with stage 1 through stage 4 chronic kidney disease, or unspecified chronic kidney disease; E11.65 Type 2 diabetes mellitus with hyperglycemia; B02.9 Zoster without complications; E03.9 Hypothyroidism, unspecified; L98.9 Disorder of the skin and subcutaneous tissue, unspecified; E87.6 Hypokalemia; N18.9 Chronic kidney disease, unspecified; E11.649 Type 2 diabetes mellitus with hypoglycemia without coma; J98.2 Interstitial emphysema; D69.6 Thrombocytopenia, unspecified; D50.9 Iron deficiency anemia, unspecified; F12.90 Cannabis use, unspecified, uncomplicated; R29.6 Repeated falls; Z79.899 Other long term (current) drug therapy; Z92.21 Personal history of antineoplastic chemotherapy; Z79.01 Long term (current) use of anticoagulants; Z85.71 Personal history of Hodgkin lymphoma; Z82.49 Family history of ischemic heart disease and other diseases of the circulatory system; Z83.3 Family history of diabetes mellitus; Z85.850 Personal history of malignant neoplasm of thyroid
CPT/HCPCS: 36415; 36569; 36600; 70450; 70551; 71045; 71250; 71260; 71275; 74018; 74177; 76775; 80048; 80053; 80202; 80307; 81001; 82040; 82042; 82164; 82550; 82607; 82728; 82746; 82784; 82805; 82945; 82962; 83036; 83540; 83550; 83605; 83615; 83735; 84100; 84157; 84443; 84478; 84484; 85007; 85014; 85018; 85025; 85027; 85610; 85730; 86606; 86612; 86635; 86698; 86738; 86850; 86880; 86900; 86901; 86920; 87040; 87070; 87081; 87086; 87205; 87278; 87529; 87899; 89051; 93005; 93306; 93886; 93971; 94002; 94003; 94640; 95819; 96365; 96366; 96367; 96368; 97110; 97116; 97163; 97530; A4605; A4618; C9113; G0378; J0171; J0330; J0696; J1450; J1561; J1756; J1815; J1956; J2185; J2248; J2250; J2405; J2543; J2704; J3465; J3480; J3490; J7060; J7131; P9047

== ENCOUNTER 2018-11-12 10:47 | Inpatient (IN) | payer OTHER ==
[~2018-11-12] VITALS: Ht 177.8 cm; Wt 51.3 kg
[2018-11-12] VITALS (8 sets, daily range): BP systolic 133–182; BP diastolic 65–109
[~2018-11-12 10:47] MED LIST: DIPH50CA31 PO; DULO20CA PO; LEVO50TA7 PO; LISI-275 PO; LORA0.5T12 PO; ONDA-155 PO; PANT40TA2 PO; PRE1T PO; VALA500T33 PO
--- NOTE | 2018-11-12 15:00 | NUR ---
Received patient from [facility]. Patient appears to be in distress. Dr. Goodwin paged. Rt paged.
--- NOTE | 2018-11-12 16:00 | NUR ---
at bedside. Wants to upgrade patient to the icu. Notified Charge and House sup.
--- NOTE | 2018-11-12 16:05 | NUR ---
RT NOTE: PAGED TO BEDSIDE FOR RESPIRATORY DISTRESS. SPO2 [address] ROTHMAN ORDERED ABG. AFTER ABG AND CXR REVIEWED AND CONVERSATION WITH PT; ORDERS GIVEN FOR VENT PLACEMENT VIA TRACH. WILL CONTINUE TO MONITOR.
[2018-11-12] MEDS ORDERED: FLUCONAZOLE 200MG/100ML 100 ML IV ONE (16:15)
[2018-11-12] MEDS ORDERED: Jevity 1.2 Cal/Fiber 1 Liter GT SCH (16:15)
[2018-11-12] MEDS ORDERED: NITROGLYCERIN 0.4 MG SL TAB SL PRN (16:15)
[2018-11-12] MEDS ORDERED: VANCOMYCIN PER PHARMACY 0 MG IV SCH (16:15)
[2018-11-12] MEDS ORDERED: LORazepam 2MG/ML-1ML VIAL IV PRN ×3 (16:15→16:45)
[2018-11-12] MEDS ORDERED: DEXTROSE (50%) 50ML SYRG IV PRN (16:30)
[2018-11-12] MEDS ORDERED: LABETALOL HCL 5 MG/ML ML 20ML VIAL IV PRN (16:30)
[2018-11-12] MEDS: MORPHINE SULF INJ 2 MG/ML SYRINGE 1ML IV PRN ×2 (16:48→21:21)
[2018-11-12] MEDS: LORazepam 2MG/ML-1ML VIAL IV PRN (16:54)
[2018-11-12] MEDS ORDERED: IOHEXOL 350 MG/ML 100ML IJ ONE (16:58)
--- NOTE | 2018-11-12 17:00 | NUR ---
Awaiting bed for patient, transfer to ICU.
--- NOTE | 2018-11-12 17:08 | NUR ---
Respiratory note: PATIENT WAS A [facility] AD[facility] FOR RESPIRATORY DISTRESS. HE WAS PLACED ON V5 ESPRIT VENT WITH THE ABOVE CHARTED SETTINGS; AND HAS AN 8 SHILEY CUFFED TRACH SECURED VIA TRACH TIE. SPO2 93%, LUNG SOUNDS COARSE T/O, MODERATE AMOUNT OF THICK DARK YELLOW SECRETIONS WHEN SUCTIONED. SPUTUM SAMPLE COLLECTED AND SENT TO LAB. PATIENT IS VERY TACHYPNEIC AND C/O NOT BEING ABLE TO BREATH. CONSULTED WITH DR. ROTHMAN REGARDING ATIVAN TO ALLOW PATIENT TO RELAX, ORDERS GIVEN TO RN. SKIN IS WARM/DRY TO THE TOUCH AND THE STOMA SITE IS DRAINING, BUT CLEAR FROM SKIN IRRITATION. PATIENT TO BE TRANSFERRED TO ICU AND TO HAVE CHEST CT DONE. VENT PLUGGED INTO RED OUTLET AND ALL ALARMS ARE SET AND AUDIBLE.
[2018-11-12 17:21] LABS: Hematocrit 29.4 % (41.0-53.0); Hemoglobin 9.5 g/dL (13.5-17.5); Mean Corpuscular Hemoglobin 30.3 pg (28.0-32.0); Mean Corpuscular Hgb Conc. 32.4 g/dL (32.0-36.0); Mean Corpuscular Volume 93.4 fL (80.0-100.0); Platelet Count (auto) 398 10^3/uL (140-450); Red Blood Cells 3.15 10^6/uL (4.5-5.90); Red Cell Distribution Width 15.9 % (11.8-14.3); White Blood Cell 22.7 10^3/uL (4.4-10.8)
[2018-11-12 17:28] LABS: INR 1.18 (0.9-1.15); Partial Thromboplastin Time 39.3 sec (23.64-32.05)
[2018-11-12] MEDS ORDERED: VANCOMYCIN 750mg/250ml 250 ML IV ONE (17:30)
--- NOTE | 2018-11-12 17:30 | NUR ---
Wound photos taken.
[2018-11-12 17:33] LABS: Basophils % (manual) 0 (0.0-2.0); Blast Cells 0; Eosinophils % (manual) 0 (0-7); Metamyelocytes % 0; Myelocytes % 0; Promyelocytes % 0; Reactive Lymphocytes 0
[2018-11-12 17:42] LABS: Albumin 2.4 g/dL (3.4-5.0); BUN/Creatinine Ratio 51.3; Calcium 9.2 mg/dL (8.5-10.1); Potassium 3.8 mmol/L (3.5-5.1)
[2018-11-12 17:45] LABS: Bilirubin, Total 0.8 mg/dL (0.2-1.0); Total Protein 6.8 g/dL (6.4-8.2)
--- NOTE | 2018-11-12 17:48 | NUR ---
Attempted to place cruz. Patient refused. Educated patient on the need for the cruz. Patient still denied.
[2018-11-12] MEDS: ACCU-CHEK COMFORT CURVE STRIP VI SCH (18:00)
--- NOTE | 2018-11-12 18:00 | NUR ---
report given to icu nurse
--- NOTE | 2018-11-12 18:35 | NUR ---
RT NOTE: PT TRANSFER TO ICU BED 103 VIA HANDBAG VENTILATION WITHOUT COMPLICATIONS. PT PLACED BACK ON PREVIOUS VENT SETTINGS. VENT PLUGGED INTO RED OUTLET AND OXYGEN SOURCE. ALARMS ON AND AUDIBLE. NO DISTRESS NOTED.
--- NOTE | 2018-11-12 18:40 | NUR ---
OPENING NOTE RECEIVED REPORT FROM MIRELLA WATTS. PT IS ALERT AND ORIENTEDx4 BUT CANNOT SPEAK OLIVIA TO TRACH. HE IS ABLE TO SPEAK WITH LIPS AND GESTURE. HR 128, RR 48, BP 141/95, 96% O2SAT ON CPAP RATE 15, TV 500, FIO2 60%, PEEP 5, RIGHT LUNG SOUNDS CLEAR, LEFT LUNG SOUNDS COURSE, BOWEL SOUNDS ACTIVE. CHEST TUBE DRAINING TO RIGHT SIDE TO 20 CM SUCTION. DRESSING REINFORCED AND NO BUBBLING COMING FROM DEVICE OR TUBING. BED IN LOWEST POSITION, SIDE RAILS UP, CALL LIGHT WITHIN REACH. WILL CONTINUE TO MONITOR
--- NOTE | 2018-11-12 19:00 | NUR ---
OPENING NOTES ASSUMED CARE, LAYING ON BED, AWAKE AND ORIENTED WITH NO SIGNS OF DISTRESS AND NO C/O PAIN AT THIS TIME, STILL ON VENT VIA TRACHEOSTOMY, PEG TUBE IN PLACE, ABLE TO USE A URINAL, PIV'S PATENT AND INTACT. BED IN LOWEST POSITION WITH SIDE RAILS UP,BED ALARM ON AND CALL LIGHT WITHIN REACH. WILL CONTINUE CARE. Addendum: 11/13/18 at 2033 by Eva Charles RN right chest tube intact draining to a serosanguineous drainage
[2018-11-12] MEDS: ACETYLCYSTEINE 20%(200MG/ML) SOL 4ML NEB SCH (19:12)
[2018-11-12] MEDS: ALBUTEROL SULF 2.5 MG/0.5ML(0.5%) NEB SOLN NEB SCH (19:12)
[2018-11-12] MEDS: IPRATROPIUM BROM 0.5 MG/2.5ML INH SOL NEB SCH (19:12)
--- NOTE | 2018-11-12 19:15 | NUR ---
CLOSING NOTE SHIFT REPORT GIVEN AND CARE ENDORSED TO JONATHAN WATTS
[2018-11-12] MEDS: InsuLIN REG 1unit/0.01ml Soln (100units/ml) SC SCH (20:03)
[2018-11-12] MEDS ORDERED: VANCOMYCIN 1GM/250ML 250 ML IV ONE (21:00)
[2018-11-12 21:15] LABS: Band Neutrophils % (manual) 4; Lymphocytes % (manual) 3 (10.0-50.0); Monocytes % (manual) 1 (0-12)
[2018-11-12] MEDS: APIXABAN 5 MG TAB PO SCH (21:21)
[2018-11-12] MEDS: GABAPENTIN 300 MG CAP PO SCH (21:22)
[2018-11-12] MEDS: FAMOTIDINE (10MG/ML) 2ML VL IV SCH (21:22)
[2018-11-12] MEDS: PIPERACILLIN-TAZOB 3.375GM 100 ML IV SCH (23:17)
[2018-11-13] VITALS (52 sets, daily range): BP systolic 113–162; BP diastolic 51–113
[2018-11-13] MEDS: ACETYLCYSTEINE 20%(200MG/ML) SOL 4ML NEB SCH ×5 (00:06→18:41)
[2018-11-13] MEDS: ALBUTEROL SULF 2.5 MG/0.5ML(0.5%) NEB SOLN NEB SCH ×6 (00:06→22:09)
[2018-11-13] MEDS: IPRATROPIUM BROM 0.5 MG/2.5ML INH SOL NEB SCH ×6 (00:07→22:09)
[2018-11-13] MEDS: ACCU-CHEK COMFORT CURVE STRIP VI SCH ×5 (00:25→23:29)
[2018-11-13] MEDS: InsuLIN REG 1unit/0.01ml Soln (100units/ml) SC SCH ×5 (00:26→23:30)
--- NOTE | 2018-11-13 03:39 | NUR ---
RECEIVED A CALL FROM BRANDI AND UPDATED ON PT'S STATUS AFTER OBTAINING A PASSWORD.
[2018-11-13 04:31] LABS: Basophils # (auto) 0 uL; Basophils % (auto) 0.1 % (0.0-2.0); Eosinophils # (auto) 0 uL; Hemoglobin 8.5 g/dL (13.5-17.5); Lymphocytes # (auto) 0.2 uL; Lymphocytes % (auto) 1.2 % (10.0-50.0); Mean Corpuscular Hemoglobin 30.5 pg (28.0-32.0); Mean Corpuscular Hgb Conc. 32.6 g/dL (32.0-36.0); Mean Corpuscular Volume 93.3 fL (80.0-100.0); Monocytes % (auto) 4.7 % (0.0-12.0); Neutrophils # (auto) 20.2 uL; Platelet Count (auto) 363 10^3/uL (140-450); Red Blood Cells 2.79 10^6/uL (4.5-5.90); Red Cell Distribution Width 15.6 % (11.8-14.3); White Blood Cell 21.5 10^3/uL (4.4-10.8)
[2018-11-13 04:47] LABS: Calcium 9.1 mg/dL (8.5-10.1)
[2018-11-13 04:51] LABS: BUN/Creatinine Ratio 42.5
[2018-11-13 04:58] LABS: Potassium 2.9 mmol/L (3.5-5.1)
--- NOTE | 2018-11-13 05:13 | NUR ---
MORNING CARE / ELIMINATION MODERATE AMOUNT OF LOOSE, BROWN STOOLS NOTED, LINENS AND GOWN CHANGED. REPOSITIONED FOR COMFORT.
--- NOTE | 2018-11-13 05:35 | NUR ---
PAGED THE HOSPITALIST FOR K 2.9. AWAITING CALL BACK
[2018-11-13] MEDS: PIPERACILLIN-TAZOB 3.375GM 100 ML IV SCH ×3 (05:55→21:50)
[2018-11-13] MEDS: GABAPENTIN 300 MG CAP PO SCH ×3 (05:55→21:51)
--- NOTE | 2018-11-13 06:00 | NUR ---
RE-PAGED THE HOSPITALIST FOR CRITICAL POTASSIUM.
--- NOTE | 2018-11-13 06:09 | NUR ---
[facility] CALLED BACK WITH ORDER TO GIVE POTASSIUM EFFERVESCENT 50MEQ NOW. WILL CARRY OUT AN ORDER.
[2018-11-13] MEDS ORDERED: POTASSIUM EFFERVESENT TAB 25 MEQ GT ONE (06:15)
[2018-11-13] MEDS ORDERED: POTASSIUM EFFERVESENT TAB 25 MEQ ONE (06:39)
--- NOTE | 2018-11-13 06:45 | NUR ---
PROVIDED WITH BEDPAN, HAD BM MIXED WITH URINE. CLEANSED AND KEPT DRY AND COMFORTABLE. REPOSITIONED FOR COMFORT.
[2018-11-13] MEDS ORDERED: VANCOMYCIN 750mg/250ml 250 ML IV SCH (09:00)
--- NOTE | 2018-11-13 09:00 | NUR ---
TUBE FEEDINGS STARTED AT 15ML/ HR VIA PEG TUBE. 15ML RESIDUAL OF MEDICATIONS NOTED PRIOR TO STARTING. ASPIRATION PRECAUTIONS IN PLACE. PEG TUBE SITE NOTED TO HAVE DRY SCAB AROUND SITE, INTACT, NO REDNESS, ERYTHEMA OR DRAINAGE NOTED. PEG TUBE SURROUNDING PEG TUBE CLEANSED WITH CHLORHEXIDINE SWAB. PT TOLERATED WELL.
[2018-11-13] MEDS: SERTRALINE HCL 50 MG TAB PO SCH (09:33)
[2018-11-13] MEDS: FAMOTIDINE (10MG/ML) 2ML VL IV SCH ×2 (09:33→21:50)
[2018-11-13] MEDS: MORPHINE SULF INJ 2 MG/ML SYRINGE 1ML IV PRN (09:33)
[2018-11-13] MEDS: APIXABAN 5 MG TAB PO SCH ×2 (09:33→21:51)
--- NOTE | 2018-11-13 10:00 | NUR ---
Family updated on pt status Family of DENNYS LOPES JR updated on patient's status and condition. All questions and concerns addressed. verbalized understanding.
[2018-11-13] MEDS ORDERED: FLUCONAZOLE 200MG/100ML 100 ML IV SCH (11:00)
--- NOTE | 2018-11-13 11:30 | NUR ---
WOUND CARE NOTE: IN TO SEE PATIENT AT THIS TIME FOR WOUNDS. PATIENT WAS RECENTLY ADMITTED TO [facility] WITH DIAGNOSIS OF PNEUMOTHORAX. PATIENT WAS NOTED UPON ADMIT TO HAVE MULTIPLE WOUNDS. ALL WOUNDS WERE PHOTOGRAPHED FOR REFERENCE BY ADMITTING RN. PATIENT VENTILATED WITH TRACH. HE IS AWAKE, ALERT, FULLY ORIENTED. SPOUSE IS AT BEDSIDE. SPECIALTY AIR BED HAS BEEN ORDERED. PATIENT TO BE PLACED, PENDING DELIVERY BY [facility]. PATIENT HAS CURRENT KEYA SCORE OF 12. HE IS ABLE TO ASSIST WITH HIS TURNING/REPOSITIONING, BUT IS VERY WEAK. PATIENT IS NOTED TO HAVE THE FOLLOWING WOUNDS: STAGE 3 PRESSURE INJURY TO SACRUM, UNSTAGEABLE PRESSURE INJURY TO THE LEFT ISCHIUM, STAGE 3 PRESSURE INJURY TO THE RIGHT ISCHIUM, RECENTLY CLOSED PRESSURE INJURIES TO LEFT BUTTOCK, NOW SCARS, UNSTAGEABLE RIGHT HEEL PRESSURE INJURY, ABRASION TO LEFT DORSAL FOOT, SCABBED BLISTER OR ULCERATION TO THE LEFT FOREARM. ALL WOUND STATS CAN BE FOUND WITHIN WOUND ASSESSMENT, LINKED TO THIS NOTE. APPLIED THERAHONEY AND OPTIFOAM GENTLE DRESSINGS TO ALL OPEN WOUNDS. RECOMMEND: DIETARY CONSULT, FREQUENT TURN SCHEDULE Q 2 HOURS, PRN CONDITION PERMITS, WITH PRESSURE REDISTRIBUTION USING PILLOWS/WEDGES, SPECIALTY AIR BED, HARJINDER FOAM BOOTS TO BILATERAL FEET/HEELS, DAILY/PRN DRESSING CHANGES TO SACRAL/RIGHT LEFT ISCHIUM WOUNDS, SKIN/WOUND CARE PLAN, CONTINUED MONITORING BY WOUND CARE TEAM. Addendum: 11/13/18 at 1537 by Tiera Rincon RN Amended: Links added.
--- NOTE | 2018-11-13 11:30 | NUR ---
Elimination Patient noted to have a brown, loose, moderate bm. Skin cleansed, wound care at bedside to assist with wound care dressings. at bedside.
--- NOTE | 2018-11-13 11:31 | NUR ---
Nutrition consult/assessment Notes please see attached link for complete assessment Est. Needs IBW (75 kg): 3375-7568 kcal (25-30 kcal/kgIBW), 75-90 gms pro (1.0-1.2 gms/kgIBW). Will continue to monitor pertinent labs and reassess nutrient need prn Rec: EN support of Glucerna 1.2 Eddie @ 70 ml/hr goal rate as tolerated to meet at least 75% of est nutrient needs. Addendum: 11/13/18 at [address] Amended: Links added.
[2018-11-13] MEDS: LORazepam 2MG/ML-1ML VIAL IV PRN (12:32)
[2018-11-13] MEDS ORDERED: TEMAZEPAM 15 MG CAP PO PRN (13:15)
[2018-11-13] MEDS ORDERED: AMIKACIN 0 ML IV SCH (13:15)
--- NOTE | 2018-11-13 13:31 | NUR ---
AT BEDSIDE DR. ROTHMAN AT BEDSIDE. MD UPDATED ON PATIENTS STATUS, SMALL AMOUNT OF SEROUS FLUID NOTED FROM RIGHT CHEST TUBE, RR THROUGHOUT SHIFT DESPITE PRN'S GIVEN, VENT SETTINGS. DIETARY RECOMMENDATION, K COVERAGE THIS A.M., CURRENT TEMP. MD ALSO SPOKE TO MARIA FERNANDA AT BEDSIDE, QUESTIONS AND CONCERNS ADDRESSED. SEE MD ORDERS.
[2018-11-13] MEDS ORDERED: METOPROLOL TARTRATE 25 MG TAB PO ONE (13:45)
--- NOTE | 2018-11-13 14:45 | NUR ---
Respiratory note: FIO2 INCREASED TO 35%. STEFANIE ALMANZA IS AWARE. POX CURRENTLY 94%.
--- NOTE | 2018-11-13 15:12 | NUR ---
Respiratory note: PT CHANGED TO HEATED WIRE CIRCUIT SET TO 36 DEGREES CELSIUS.
[2018-11-13 15:27] LABS: Urine Bacteria FEW /hpf (None Seen); Urine Blood Negative /uL (Negative); Urine Specific Gravity 1.033 (1.001-1.035); Urine WBC 1 /hpf (0 - 3)
--- NOTE | 2018-11-13 15:30 | NUR ---
PHYSICAL THERAPY PAGED FOR BEDSIDE ROM.
--- NOTE | 2018-11-13 15:45 | NUR ---
Patient triggering low tv trigger on ventilator as his respiration are irregular, RR -24-32. Pt pox 97%, no respiratory distress noted. R.t at bedside attempted to switch patient to AC mode per md orders but RR noted to increase to mid 30-low 40's. Placed back on previous settings. Will continue to monitor closely.
[2018-11-13] MEDS: HYDROcodone-ACET 5/325MG TAB PO PRN ×2 (16:42→22:04)
[2018-11-13] MEDS ORDERED: AMIKACIN IV SCH (17:00)
[2018-11-13] MEDS ORDERED: D5W 5% IV SCH (17:00)
--- NOTE | 2018-11-13 18:15 | NUR ---
TUBE FEEDINGS TOLERATED. 15ML OF TF RESIDUAL NOTED. TF REMAIN AT 20ML/HR. ASPIRATION PRECAUTIONS REMAINS IN PLACE.
--- NOTE | 2018-11-13 18:15 | NUR ---
CHEST TUBE SITE REMAINS INTACT. WATER SEAL CHAMBER TO LCS. NO BUBBLING NOTED. APPROX 10ML OF SEROSANGUINEOUS DRAINAGE NOTED.
--- NOTE | 2018-11-13 19:00 | NUR ---
IV insertion IV access obtained, via clean sterile technique by inserting 22 gauge catheter at left forearm after 1 attempt(s). IV secured properly. No trauma to site. Patient tolerated procedure well.
--- NOTE | 2018-11-13 19:00 | NUR ---
OPENING NOTES ASSUMED CARE, LAYING ON BED WITH HIS EYES CLOSED WITH NO SIGNS OF DISTRESS, STILL WITH TRACHEOSTOMY TUBE CONNECTED TO VENT, CPAP MODE, FiO2 40 %, CTT IN PLACE DRAINING TO A SEROSANGUINEOUS OUTPUT, MINIMAL AMOUNT, TF INFUSING JEVITY @ 20 ML/ HR, IV ACCESS PATENT AND INTACT. BED IN LOWEST POSITION WITH SIDE RAILS UP, BED ALARM ON AND CALL LIGHT WITHIN REACH. WILL CONTINUE CARE. Addendum: 11/14/18 at 0352 by Eva Charles RN GLUCERNA FEEDING GIVEN NOT JEVITY
--- NOTE | 2018-11-13 20:00 | NUR ---
PEG TUBE RESIDUAL ABOUT 10 ML, FEEDING INCREASED TO 25 ML/HR.
--- NOTE | 2018-11-13 20:10 | NUR ---
IV INSERTION ANOTHER IV IN THE LEFT FOREARM G. 20 INSERTED ASEPTICALLY AFTER 1ST ATTEMPT. WELL TOLERATED BY PT.
[2018-11-13] MEDS: METOPROLOL TARTRATE 25 MG TAB PO SCH (21:50)
[2018-11-14] VITALS (32 sets, daily range): BP systolic 104–155; BP diastolic 55–75
--- NOTE | 2018-11-14 | NUR ---
TF RESIDUAL ABOUT 20 ML. FEEDING INCREASED TO 3O ML/HR.
--- NOTE | 2018-11-14 03:15 | NUR ---
MORNING CARE DONE, LINENS AND PADS CHANGED. REPOSITIONED FOR COMFORT.
--- NOTE | 2018-11-14 03:25 | NUR ---
TRANSFERRED TO SPECIALTY AIR MATTRESS BED, NO DISTRESS NOTED.
--- NOTE | 2018-11-14 03:45 | NUR ---
RECEIVED A CALL FROM THE , UPDATED ON PT'S STATUS AFTER OBTAINING A PASSWORD. VERBALIZED UNDERSTANDING.
[2018-11-14 04:43] LABS: Basophils # (auto) 0.1 uL; Eosinophils # (auto) 0.5 uL; Lymphocytes # (auto) 0.4 uL; Monocytes # (auto) 1.1 uL; Neutrophils # (auto) 16.2 uL; Nucleated Red Blood Cells % 0.1 %
[2018-11-14 04:45] LABS: Basophils % (auto) 0.4 % (0.0-2.0); Eosinophils % (auto) 2.6 % (0.0-7.0); Hematocrit 24.2 % (41.0-53.0); Lymphocytes % (auto) 2.2 % (10.0-50.0); Mean Corpuscular Hemoglobin 30.8 pg (28.0-32.0); Mean Corpuscular Volume 93.5 fL (80.0-100.0); Monocytes % (auto) 5.9 % (0.0-12.0); Neutrophils % (auto) 88.9 % (37.0-80.0); Platelet Count (auto) 332 10^3/uL (140-450); Red Blood Cells 2.59 10^6/uL (4.5-5.90); White Blood Cell 18.2 10^3/uL (4.4-10.8)
[2018-11-14 04:55] LABS: BUN/Creatinine Ratio 43.3; Calcium 8.6 mg/dL (8.5-10.1)
[2018-11-14 05:12] LABS: Potassium 2.7 mmol/L (3.5-5.1)
--- NOTE | 2018-11-14 05:14 | NUR ---
PAGED THE HOSPITALIST FOR K+ 2.7. AWAITING CALL BACK.
--- NOTE | 2018-11-14 05:31 | NUR ---
[facility] CALLED BACK AND MADE AWARE OF K + 2.7, ORDERED POTASSIUM 40 MEQ KCL IV. WILL CARRY OUT AN ORDER.
[2018-11-14] MEDS ORDERED: POTASSIUM CHL 20MEQ/100ML 200 ML IV ONE (05:37)
[2018-11-14] MEDS: IPRATROPIUM BROM 0.5 MG/2.5ML INH SOL NEB SCH ×5 (05:50→22:36)
[2018-11-14] MEDS: ALBUTEROL SULF 2.5 MG/0.5ML(0.5%) NEB SOLN NEB SCH ×5 (05:50→22:36)
[2018-11-14] MEDS: ACCU-CHEK COMFORT CURVE STRIP VI SCH ×3 (06:25→18:43)
[2018-11-14] MEDS: PIPERACILLIN-TAZOB 3.375GM 100 ML IV SCH (06:26)
[2018-11-14] MEDS: InsuLIN REG 1unit/0.01ml Soln (100units/ml) SC SCH ×3 (06:26→18:43)
[2018-11-14] MEDS: GABAPENTIN 300 MG CAP PO SCH ×3 (06:26→22:40)
[2018-11-14] MEDS: POTASSIUM CHL 20MEQ/100ML 100 ML IV SCH ×2 (06:27→08:52)
--- NOTE | 2018-11-14 07:15 | NUR ---
OPENING NOTE RECEIVED SHIFT REPORT AND ASSUMED CARE OF PT FROM JONATHAN WATTS
[2018-11-14] MEDS: HYDROcodone-ACET 5/325MG TAB PO PRN ×2 (08:50→16:27)
[2018-11-14] MEDS: ACETYLCYSTEINE 20%(200MG/ML) SOL 4ML NEB SCH ×4 (09:53→22:36)
--- NOTE | 2018-11-14 10:00 | NUR ---
PHYSICAL THERAPY AT BEDSIDE TO DO RANGE OF MOTION IN BED WITH PATIENT
[2018-11-14] MEDS: METOPROLOL TARTRATE 25 MG TAB PO SCH ×2 (10:03→22:41)
[2018-11-14] MEDS: SERTRALINE HCL 50 MG TAB PO SCH (10:03)
[2018-11-14] MEDS: FAMOTIDINE (10MG/ML) 2ML VL IV SCH ×2 (10:03→22:39)
[2018-11-14] MEDS: APIXABAN 5 MG TAB PO SCH ×2 (10:04→22:40)
--- NOTE | 2018-11-14 11:10 | NUR ---
DR. CAMPA AT BEDSIDE ORDERS RECEIVED
[2018-11-14] MEDS ORDERED: FUROSEMIDE 20 MG/2 ML VIAL IV ONE (11:15)
[2018-11-14] MEDS ORDERED: POTASSIUM EFFERVESENT TAB 25 MEQ GT ONE (11:15)
--- NOTE | 2018-11-14 11:15 | NUR ---
Respiratory note: PT PLACED ON TRACH COLLAR PER DR. ROTHMAN WITH 40% CA RUNNING AT 12 LPM. PT IS TOLERATING IT WELL. PT HAS STRONG SPONTANEOUS COUGH. TRACHEAL SUCTIONED FOR A MODERATE AMOUNT OF THIN CLEAR SECRETIONS. POX CURRENTLY 95%. RN AWARE.
--- NOTE | 2018-11-14 11:15 | NUR ---
RESPIRATORY THERAPIST PLACED PT ON TRACH COLLAR WILL MONITOR AND OBSERVE PT'S ABILITY TO TOLERATE. WILL PUT BACK ON VENT IF PT CANNOT TOLERATE, BECOMES LABORED, OR IN DISTRESS. WILL CONTINUE TO MONITOR
[2018-11-14] MEDS ORDERED: LEVOFLOXACIN 750MG 150 ML IV ONE (11:30)
--- NOTE | 2018-11-14 14:16 | NUR ---
Respiratory note: TRACH CARE HAS BEEN COMPLETED. SKIN INTACT AROUND THE STOMA. GAUZE CHANGED, STOMA SITE CLEANED, INNER CANNULA CLEANED. MED NEB TX ADMINISTERED VIA TRACH MASK, NO ADVERSE REACTIONS NOTED.
--- NOTE | 2018-11-14 14:30 | NUR ---
BM PT HAD SMALL BROWN SOFT STOOL ON BED AVILA
--- NOTE | 2018-11-14 15:45 | NUR ---
RECEIVED CALL FROM MARIA FERNANDA VERIFIED PASSWORD. UPDATED ON PT STATUS. NO QUESTIONS OR CONCERNS AT THIS TIME
--- NOTE | 2018-11-14 18:00 | NUR ---
COMPLETE LINEN CHANGE AND OPTIFOAM TO RIGHT BUTTOCK CHANGED. PT TOLERATED WELL.
--- NOTE | 2018-11-14 18:40 | NUR ---
Respiratory note: ASSESSED TRACH AT THIS TIME, TRACH SITE CLEAN, ASYMPTOMATIC, NO SIGNS OF INFECTION NOTED AROUND STOMA, PT HAS 8.0 SHILEY WITH NON DISPOSABLE INNER CANNULA, PT ON TRACH COLLAR WITH CM AT 40%. WILL CONTINUE TO MONITOR
--- NOTE | 2018-11-14 19:10 | NUR ---
CLOSING NOTE SHIFT REPORT GIVEN AND CARE ENDORSED TO OANH WATTS
--- NOTE | 2018-11-14 19:40 | NUR ---
INITIAL CONTACT ASSUMED CARE OF PATIENT PATIENT APPEARS TO BE RESTING IN BED COMFORTABLY IN SEMI-FOWLERS POSITION AAOX4, VITAL SIGNS WITHIN NORMAL LIMITS. NOTED TRACHEOSTOMY/C-PAP, 100% 02 SAT. NO S/S OF DISTRESS NOTED, PATIENT HAVING LEG PAIN BUT REFUSES MEDICATION AT THIS TIME. OLIVO CATHETER IN TACT AND DRAINING TO GRAVITY. CHEST TUBE TO IN PLACE AND DRAINING TO GRAVITY/ATRIUM. NOTED PATIENT IS IN FULL VIEW OF NURSES STATION. SAFETY MAINTAINED, WILL CONTINUE TO MONITOR.
--- NOTE | 2018-11-14 20:10 | NUR ---
CALL MADE TO MARIA FERNANDA SPOUSE PLAN OF CARE DISCUSSED. ALL QUESTIONS AND CONCERNS WERE ADDRESSED.
[2018-11-14] MEDS: MORPHINE SULF INJ 2 MG/ML SYRINGE 1ML IV PRN (20:15)
--- NOTE | 2018-11-14 22:00 | NUR ---
PARTIAL BATH UPPER TORSO/FACE CLEANED WITH WARM WATER AND SOAP PATIENT TOLERATED WELL BLANKET GIVEN FOR WARMTH AND COMFORT
--- NOTE | 2018-11-14 22:49 | NUR ---
Respiratory note: PLACED PT ON VENT AT THIS TIME WITH THE ORDERED SETTINGS CPAP PS 10 PEEP 5, 40%. PT NOT TOLERATING WELL. PT UNCOMFORTABLE. PT REFUSE VENT AT THIS TIME. PT MORE COMFORTABLE OFF VENT WITH NO DISTRESS NOTED. PLACED PT BACK ON TRACH COLLAR WITH CM AT 40%
[2018-11-15] VITALS (23 sets, daily range): BP systolic 120–173; BP diastolic 46–94
[2018-11-15] MEDS: ACCU-CHEK COMFORT CURVE STRIP VI SCH ×5 (00:28→23:31)
[2018-11-15] MEDS: InsuLIN REG 1unit/0.01ml Soln (100units/ml) SC SCH ×5 (00:31→23:31)
--- NOTE | 2018-11-15 01:00 | NUR ---
BM PATIENT HAD A MED SIDE SOFT, BROWN COLORED BM/ BED AVILA WAS USED
--- NOTE | 2018-11-15 01:15 | NUR ---
Patient bathe/linen change Patient given complete bath. Skin integrity assessed for any changes. Linens changed. Patient repositioned for comfort. Left sacral opti foam changed. patient tolerated well
[2018-11-15 05:02] LABS: Basophils # (auto) 0 uL; Basophils % (auto) 0.2 % (0.0-2.0); Eosinophils # (auto) 0.6 uL; Eosinophils % (auto) 3.1 % (0.0-7.0); Hematocrit 29.6 % (41.0-53.0); Hemoglobin 9.6 g/dL (13.5-17.5); Lymphocytes # (auto) 0.4 uL; Lymphocytes % (auto) 2.1 % (10.0-50.0); Mean Corpuscular Hemoglobin 30.1 pg (28.0-32.0); Mean Corpuscular Hgb Conc. 32.5 g/dL (32.0-36.0); Mean Corpuscular Volume 92.9 fL (80.0-100.0); Monocytes # (auto) 1.2 uL; Monocytes % (auto) 6.2 % (0.0-12.0); Neutrophils # (auto) 17.5 uL; Neutrophils % (auto) 88.4 % (37.0-80.0); Nucleated Red Blood Cells % 0.1 %; Platelet Count (auto) 383 10^3/uL (140-450); Red Blood Cells 3.19 10^6/uL (4.5-5.90); Red Cell Distribution Width 16.1 % (11.8-14.3); White Blood Cell 19.8 10^3/uL (4.4-10.8)
--- NOTE | 2018-11-15 05:03 | NUR ---
BM MED SIZED BROWN SOFT BM BED AVILA USED
[2018-11-15 05:18] LABS: Potassium 4.1 mmol/L (3.5-5.1)
[2018-11-15 05:21] LABS: Calcium 8.6 mg/dL (8.5-10.1)
[2018-11-15] MEDS: GABAPENTIN 300 MG CAP PO SCH ×3 (06:28→23:33)
[2018-11-15] MEDS: IPRATROPIUM BROM 0.5 MG/2.5ML INH SOL NEB SCH ×5 (06:46→22:21)
[2018-11-15] MEDS: ALBUTEROL SULF 2.5 MG/0.5ML(0.5%) NEB SOLN NEB SCH ×5 (06:46→22:21)
[2018-11-15] MEDS: ACETYLCYSTEINE 20%(200MG/ML) SOL 4ML NEB SCH ×5 (06:46→22:00)
--- NOTE | 2018-11-15 07:05 | NUR ---
REPORT RECEIVED FROM TERRITORY SERVICE REPRESENTATIVE NURSE. PATIENT RESTING IN BED AT THIS TIME. RESPIRATIONS EVEN AND UNLABORED ON TRACH COLLAR 40% FIO2. NO SIGNS IF ACUTE DISTRESS NOTED. CALL LIGHT IN REACH, BED IN LOW POSITION. WILL CONTINUE TO MONITOR.
--- NOTE | 2018-11-15 08:30 | NUR ---
TUBE FEEDING Assessed pt tube feeding. 120 ml residual. Stopped tube feeding at this time. Will reassess.
[2018-11-15] MEDS: FAMOTIDINE (10MG/ML) 2ML VL IV SCH ×2 (09:54→23:35)
[2018-11-15] MEDS: APIXABAN 5 MG TAB PO SCH ×2 (09:55→23:33)
[2018-11-15] MEDS: METOPROLOL TARTRATE 25 MG TAB PO SCH ×2 (09:55→23:36)
[2018-11-15] MEDS: SERTRALINE HCL 50 MG TAB PO SCH (09:55)
[2018-11-15] MEDS: MORPHINE SULF INJ 2 MG/ML SYRINGE 1ML IV PRN ×3 (09:56→21:32)
[2018-11-15] MEDS ORDERED: LEVOFLOXACIN 750MG 150 ML IV SCH (10:00)
--- NOTE | 2018-11-15 11:15 | NUR ---
TUBE FEEDING Restarted pt tube feeding. Decreased rate to 50 ml/hour. Will reassess.
--- NOTE | 2018-11-15 11:38 | NUR ---
Nutrition Follow-up Notes Wt.: 54.5 kg Pt continues to be on vent NPO with EN support with Glucerna @ 60 ml/hr providing 1728 kcals and 100 gm proteins. pt with adequate EN support as it meets 76-92% kcals and 90-133% proteins Est. Needs IBW (75 kg): 0320-1746 kcal (25-30 kcal/kgIBW), 75-90 gms pro (1.0-1.2 gms/kgIBW). Will continue to monitor pertinent labs and reassess nutrient need prn Labs: GLU 238 H, Skin: Atilio scale 13, mod risk, skin tear per lieutenant governor. GI: Pt had 2 BM today per lieutenant governor. PES: Altered nutrition related lab values r/t current/chronic medical condition aeb mod hypoalb hyperglycemia Increased nutrient needs r.t chronic medical condition aeb pt`s underwt with PEG and NPO Will continue to monitor NPO staus, EN tolerance, skin status, pertinent labs and weight trend. F/u in 2-3 days. Rec.: 1.) consider EN support with Glucerna @ 70 ml.hr as pt with elev blood glu and hx of DM. 2) advance diet as medically feasible 3) consider MVI/C bid. 4) continue curent plan of care
--- NOTE | 2018-11-15 12:22 | NUR ---
MD Dr. Eastman at bedside to assess patient and plan of care with pt and . All orders noted in chart.
[2018-11-15] MEDS ORDERED: MEROPENEM 500MG IVPB 50 ML IV ONE (12:30)
[2018-11-15] MEDS: MEROPENEM 1GM IVPB 100 ML IV SCH ×2 (13:09→23:35)
--- NOTE | 2018-11-15 13:30 | NUR ---
assessment Patient is a 57 year old male who is vent to trach. Prior to admission patient was at [place]. Per Susi patient is not to return to [place]. Per Susi patient to go to [facility] and if they wont accept him then [facility] is her 2nd choice. Patients PCP is Dr Sequeira. Patient has an advanced directive. Patient has a cane and fww for home use. I informed Susi patients post discharge needs to be determined once he is medically stable. Susi verbalized understanding and agreed to discharge plan. Addendum: 11/16/18 at 1333 by Gissel MCGUIRE Amended: Links added.
[2018-11-15] MEDS: HYDROcodone-ACET 5/325MG TAB PO PRN (14:25)
--- NOTE | 2018-11-15 16:27 | NUR ---
PT Physical therapy at bedside.
[2018-11-15] MEDS: NYSTATIN (MOUTH-THROAT) 500,000 UNITS/5 ML SUSP MT SCH ×3 (18:32→23:34)
--- NOTE | 2018-11-15 18:35 | NUR ---
TUBE FEEDING REASSESSMENT 20 ml residual noted. Resumed tube feeding at 30 ml/hour. Will continue at this rate.
--- NOTE | 2018-11-15 18:39 | NUR ---
Respiratory note: AT BEDSIDE FOR MED NEB TX. PT REFUSING MUCOMYST MED. PT EXPLAINS HE FEELS BAD AFTER IT AND JUST WANTS TO THROW UP. RN DALILA MADE AWARE. WILL CONTINUE TO MONITOR.
--- NOTE | 2018-11-15 19:33 | NUR ---
INITIAL CONTACT ASSUMED CARE OF PATIENT PATIENT APPEARS TO BE RESTING IN BED COMFORTABLY IN SUPINE POSITION, AAOX4, NO S/S OF DISTRESS NOTED. VITAL SIGNS SHOW SINUS TACH AT THIS TIME. PATIENT DENIES PAIN. SAFETY MAINTAINED, WILL CONTINUE TO MONITOR
[2018-11-15] MEDS ORDERED: INSULIN LANTUS (GLARGINE) 1 /0.01ml (100units/ml) SC SCH (22:00)
--- NOTE | 2018-11-15 22:00 | NUR ---
RT AT BEDSIDE PT REFUSED MUCOMYST TREATMENT STATES THAT IT MAKES HIM NAUSEATED
[2018-11-16] VITALS (24 sets, daily range): BP systolic 123–172; BP diastolic 47–76
--- NOTE | 2018-11-16 02:26 | NUR ---
ELIMINATION MODERATELY SIZED BM BROWN COLOR/SOFT CONSISTENCY BENEDICT CARE GIVEN
--- NOTE | 2018-11-16 04:00 | NUR ---
Respiratory note: TRACH CARE DONE WITH NO INCIDENT. PT TOLERATED WELL . COOL AEROSOL BOTTLE CHANGED AND (Y) DRAIN BAG EMPTIED.
[2018-11-16 04:15] LABS: Red Cell Distribution Width 16.4 % (11.8-14.3)
[2018-11-16 04:18] LABS: Hematocrit 28.6 % (41.0-53.0); Hemoglobin 9.3 g/dL (13.5-17.5); Mean Corpuscular Hemoglobin 30.4 pg (28.0-32.0); Mean Corpuscular Hgb Conc. 32.7 g/dL (32.0-36.0); Platelet Count (auto) 378 10^3/uL (140-450); Red Blood Cells 3.07 10^6/uL (4.5-5.90)
--- NOTE | 2018-11-16 05:00 | NUR ---
Patient bathe/linen change Patient given complete bath. Skin integrity assessed for any changes. Linens changed. Patient repositioned for comfort.
[2018-11-16 05:04] LABS: White Blood Cell 32.6 10^3/uL (4.4-10.8)
[2018-11-16 05:06] LABS: Basophils % (manual) 0 (0.0-2.0); Blast Cells 0; Eosinophils % (manual) 0 (0-7); Myelocytes % 0; Promyelocytes % 0; Reactive Lymphocytes 0
[2018-11-16] MEDS: ACETYLCYSTEINE 20%(200MG/ML) SOL 4ML NEB SCH ×5 (06:00→22:00)
[2018-11-16 06:20] LABS: Lymphocytes % (manual) 2 (10.0-50.0); Metamyelocytes % 1
[2018-11-16 06:21] LABS: Band Neutrophils % (manual) 17; Monocytes % (manual) 6 (0-12)
[2018-11-16] MEDS: ALBUTEROL SULF 2.5 MG/0.5ML(0.5%) NEB SOLN NEB SCH ×5 (06:22→22:08)
[2018-11-16] MEDS: IPRATROPIUM BROM 0.5 MG/2.5ML INH SOL NEB SCH ×5 (06:22→22:08)
--- NOTE | 2018-11-16 06:28 | NUR ---
PT REFUSES MUCOMYST, EXPRESSES IT MAKES HIM NAUSEOUS. OTHER MED NEB TXS ADMINISTERED ORDERED.
--- NOTE | 2018-11-16 07:05 | NUR ---
REPORT RECEIVED FROM TOOL MARKER NURSE. PATIENT RESTING IN BED AT THIS TIME. RESPIRATIONS EVEN AND UNLABORED. NO SIGNS OF ACUTE DISTRESS NOTED. BED IN LOW POSITION WILL CONTINUE TO MONITOR.
[2018-11-16] MEDS: MEROPENEM 1GM IVPB 100 ML IV SCH (07:29)
[2018-11-16] MEDS: GABAPENTIN 300 MG CAP PO SCH ×3 (07:29→22:45)
[2018-11-16] MEDS: NYSTATIN (MOUTH-THROAT) 500,000 UNITS/5 ML SUSP MT SCH ×4 (07:29→22:42)
[2018-11-16] MEDS: InsuLIN REG 1unit/0.01ml Soln (100units/ml) SC SCH ×4 (07:30→23:52)
[2018-11-16] MEDS: ACCU-CHEK COMFORT CURVE STRIP VI SCH ×4 (07:30→23:41)
[2018-11-16] MEDS: FAMOTIDINE (10MG/ML) 2ML VL IV SCH ×2 (10:10→22:41)
[2018-11-16] MEDS: SERTRALINE HCL 50 MG TAB PO SCH (10:10)
[2018-11-16] MEDS: METOPROLOL TARTRATE 25 MG TAB PO SCH ×2 (10:10→22:44)
[2018-11-16] MEDS: APIXABAN 5 MG TAB PO SCH ×2 (10:10→22:42)
--- NOTE | 2018-11-16 10:18 | NUR ---
MUCOMYST NOT ADMINISTERED; PT REFUSES TO TAKE IT. LUNGS ARE CLEAR. RN DALILA AWARE OF REFUSAL.
[2018-11-16] MEDS: MORPHINE SULF INJ 2 MG/ML SYRINGE 1ML IV PRN ×2 (10:33→15:56)
--- NOTE | 2018-11-16 11:37 | NUR ---
DR CAMPA AT BEDSIDE TO ASSESS PATIENT AND DISCUSS PLAN OF CARE WITH PATIENT AND . PER MD PATIENT O GO FOR CT CHEST, MD TO ADJUST MEDICATIONS ORDERED. MD AWARE OF ELEVATED WBC. ALL ORDERS NOTED IN CHART.
[2018-11-16] MEDS ORDERED: AMIKACIN 0 ML IV SCH (11:45)
[2018-11-16] MEDS ORDERED: INSULIN LANTUS (GLARGINE) 1 /0.01ml (100units/ml) SC SCH (11:45)
[2018-11-16] MEDS: HYDROcodone-ACET 5/325MG TAB PO PRN ×2 (12:21→18:35)
[2018-11-16] MEDS: PIPERACILLIN-TAZOB 3.375GM 100 ML IV SCH ×3 (12:21→23:51)
[2018-11-16] MEDS ORDERED: AMIKACIN IV SCH (13:00)
[2018-11-16] MEDS ORDERED: D5W 5% IV SCH (13:00)
--- NOTE | 2018-11-16 14:27 | NUR ---
PATIENT TAKEN TO CT PER MD ORDER CONNECTED PORTABLE MONITOR AND OXYGEN. NURSE AND RESPIRATORY THERAPIST AT BEDSIDE FOR TRANSPORT. NO SIGNS OF ACUTE DISTRESS NOTED.
--- NOTE | 2018-11-16 14:52 | NUR ---
PATIENT BACK FROM CT PLACED ON BEDSIDE MONITOR AND OXYGEN. INCREASED RR IN 40'S SATURATIONS STABLE. WILL CONTINUE TO MONITOR.
--- NOTE | 2018-11-16 16:49 | NUR ---
DR CAMPA CALLED FOR UPDATE ON PATIENT CT RESULTS. REVIEWED RESULTS WITH MD. NO NEW ORDERS AT THIS TIME.
--- NOTE | 2018-11-16 16:54 | NUR ---
TRACH CARE DONE. INNER CANNULA CLEANED. TRACH TIES ARE CLEAN. TRACH SITE IS ASYMPTOMATIC. DEEP TRACHEAL SUCTIONED MODERATE THICK PALE RETURN. SPO2 9%% ON 35% COOL MIST AEROSOL. EXTRA TRACH AT BEDSIDE. COOL MIST AEROSOL WATER ADEQUATE LEVEL.
--- NOTE | 2018-11-16 18:00 | NUR ---
PATIENT REFUSING POSITION CHANGE AT THIS TIME.
--- NOTE | 2018-11-16 19:45 | NUR ---
INITIAL CONTACT ASSUMED CARE OF PATIENT PATIENT APPEARS TO BE RESTING IN BED COMFORTABLY IN SEMI-FOWLERS POSITION AT THIS TIME. AAOX4, VITAL SIGNS WITHIN NORMAL LIMITS. NO S/S OF DISTRESS NOTED. PATIENT DENIES PAIN. PLAN OF CARE DISCUSSED WITH PATIENT, PATIENT VERBALIZED UNDERSTANDING. SAFETY MAINTAINED, WILL CONTINUE TO MONITOR
--- NOTE | 2018-11-16 20:30 | NUR ---
CALL PLACED TO SPOUSE SPOUSE WAS UPDATED ON PATIENTS PLAN OFF CARE. ALL QUESTIONS AND CONCERNS WERE ANSWERED
--- NOTE | 2018-11-16 21:00 | NUR ---
ROUNDING PATIENT SLEEPING COMFORTABLY AT THIS TIME. VITALS SIGNS WITHIN NORMAL LIMITS. NO S/S OF DISTRESS NOTED. SAFETY MAINTAINED, WILL CONTINUE TO MONITOR.
[2018-11-16] MEDS: INSULIN LANTUS (GLARGINE) 1 /0.01ml (100units/ml) SC SCH (22:45)
--- NOTE | 2018-11-16 23:00 | NUR ---
ROUNDING PATIENT SLEEPING COMFORTABLY AT THIS TIME. VITALS SIGNS WITHIN NORMAL LIMITS. NO S/S OF DISTRESS NOTED. SAFETY MAINTAINED, WILL CONTINUE TO MONITOR.
[2018-11-17] VITALS (24 sets, daily range): BP systolic 122–161; BP diastolic 37–61
--- NOTE | 2018-11-17 00:36 | NUR ---
ROUNDING PATIENT SLEEPING COMFORTABLY AT THIS TIME. VITALS SIGNS WITHIN NORMAL LIMITS. NO S/S OF DISTRESS NOTED. SAFETY MAINTAINED, WILL CONTINUE TO MONITOR.
[2018-11-17 04:27] LABS: Hemoglobin 9.3 g/dL (13.5-17.5)
[2018-11-17 04:31] LABS: Hematocrit 28.9 % (41.0-53.0); Mean Corpuscular Hemoglobin 29.6 pg (28.0-32.0); Mean Corpuscular Volume 92.4 fL (80.0-100.0); Platelet Count (auto) 380 10^3/uL (140-450); Red Blood Cells 3.13 10^6/uL (4.5-5.90); Red Cell Distribution Width 16.2 % (11.8-14.3)
[2018-11-17 04:39] LABS: White Blood Cell 32.9 10^3/uL (4.4-10.8)
[2018-11-17 04:40] LABS: Basophils % (manual) 0 (0.0-2.0); Blast Cells 0; Metamyelocytes % 0; Myelocytes % 0; Promyelocytes % 0; Reactive Lymphocytes 0
[2018-11-17 04:44] LABS: BUN/Creatinine Ratio 46.7; Calcium 8.8 mg/dL (8.5-10.1); Potassium 3.2 mmol/L (3.5-5.1)
[2018-11-17 05:38] LABS: Band Neutrophils % (manual) 16; Eosinophils % (manual) 1 (0-7); Lymphocytes % (manual) 1 (10.0-50.0); Monocytes % (manual) 5 (0-12)
--- NOTE | 2018-11-17 06:00 | NUR ---
ELIMINATION MEDIUM SOFT TO LIQUID BROWN COLORED STOOL
--- NOTE | 2018-11-17 06:15 | NUR ---
Patient bathe/linen change Patient given partial bath. Skin integrity assessed for any changes. Patient repositioned for comfort.
[2018-11-17] MEDS: PIPERACILLIN-TAZOB 3.375GM 100 ML IV SCH ×3 (06:19→18:00)
[2018-11-17] MEDS: GABAPENTIN 300 MG CAP PO SCH ×3 (06:20→21:10)
[2018-11-17] MEDS: ALBUTEROL SULF 2.5 MG/0.5ML(0.5%) NEB SOLN NEB SCH ×5 (06:25→22:11)
[2018-11-17] MEDS: IPRATROPIUM BROM 0.5 MG/2.5ML INH SOL NEB SCH ×5 (06:25→22:11)
[2018-11-17] MEDS: ACETYLCYSTEINE 20%(200MG/ML) SOL 4ML NEB SCH ×5 (06:25→22:00)
[2018-11-17] MEDS: NYSTATIN (MOUTH-THROAT) 500,000 UNITS/5 ML SUSP MT SCH ×4 (07:01→21:10)
[2018-11-17] MEDS: InsuLIN REG 1unit/0.01ml Soln (100units/ml) SC SCH ×3 (07:02→18:00)
[2018-11-17] MEDS: ACCU-CHEK COMFORT CURVE STRIP VI SCH ×3 (07:02→18:00)
[2018-11-17] MEDS: FAMOTIDINE (10MG/ML) 2ML VL IV SCH ×2 (09:39→21:10)
[2018-11-17] MEDS: APIXABAN 5 MG TAB PO SCH ×2 (09:40→21:11)
[2018-11-17] MEDS: SERTRALINE HCL 50 MG TAB PO SCH (09:41)
[2018-11-17] MEDS: HYDROcodone-ACET 5/325MG TAB PO PRN (09:41)
[2018-11-17] MEDS: METOPROLOL TARTRATE 25 MG TAB PO SCH ×2 (09:42→21:10)
--- NOTE | 2018-11-17 10:00 | NUR ---
MD Dr. Perez at bedside updated on patient condition with new orders, MD to input into system. MD spoke to patient and patient , Susi, whom is at bedside regarding plan of care. Questions/concerns answered by .
--- NOTE | 2018-11-17 10:15 | NUR ---
PHYSICAL THERAPY Physical therapist at bedside to perform range of motion on patient. Patient tolerated well.
--- NOTE | 2018-11-17 10:25 | NUR ---
MD Dr. Duarte called for a updated on patient. Updated given with no new orders at this time. MD will speak to Dr. Perez regarding plan of care for this patient.
[2018-11-17] MEDS ORDERED: POTASSIUM EFFERVESENT TAB 25 MEQ GT ONE ×2 (10:30→17:00)
[2018-11-17] MEDS ORDERED: LEVOFLOXACIN 750MG 150 ML IV ONE (10:30)
--- NOTE | 2018-11-17 10:59 | NUR ---
Nutrition Follow-up Notes Wt.: 53.1 kg as of yesterday. Pt's on Trach collar, and PT at bedside when rounded earlier. Pt's NPO, currently on EN support with Glucerna 1.2 Eddie @ 50 ml/hr via PEG tube providing 1440 kcal, 72 gms protein and 966 ml free water, tolerates feeding well, no residuals noted by RN this morning. Pt with inadequate EN support d/t mod initiation rate delivery of concentrated formula aeb current EN infusion meets 64% to 77% of est caloric needs and 69% to 96% of est protein needs. Est. Needs IBW (75 kg): 9556-7472 kcal (25-30 kcal/kgIBW), 75-105 gms pro (1.0-1.4 gms/kgIBW d/t severe hypoalbuminemia, CA). Will continue to monitor pertinent labs and reassess nutrient need prn Labs: Gluc 233 H, K 3.2 L, CO2 35 H, Cr 0.30 L; Alb 2.4 L Skin: Atilio scale 13, mod risk, pt's pressure ulcer on right heel and medial sacrum per documentation engineer. Pls refer to latest building coordinator's notes for further details re: tx plans. GI: Pt had 1 BM this morning per documentation engineer. PES: Altered nutrition related lab values r/t current/chronic medical condition aeb mod hypoalb hyperglycemia Increased nutrient needs r.t chronic medical condition aeb pt's CA, severe underwt, EN support via PEG and NPO Will continue to monitor NPO status, EN tolerance, skin status, pertinent labs and weight trend. F/u in 2 to 3 days. Rec.: 1.) Consider gradual increase on feeding rate of Glucerna 1.2 Eddie to 70 ml/hr goal rate as tolerated if medically appropriate. 2.) If Albumin continues trending down, consider Prostat 1 pkt BID. 3.) Consider daily MVI with minerals and Asc acid 500 mgs BID. 4.) Refer pt to CDE/RD for further nutrition education and weight monitoring upon discharge. 5.) Continue current plan of care.
--- NOTE | 2018-11-17 11:05 | NUR ---
ULTRASOUND central sterile supply technician called and states " Patient needs to be NPO to get ultrasound done for at least 6-8 hours." Tube feedings turned off for ultrasound to be done. Will re start once ultrasound is done.
[2018-11-17 11:13] LABS: BUN/Creatinine Ratio 44.1; Calcium 9.2 mg/dL (8.5-10.1)
--- NOTE | 2018-11-17 11:30 | NUR ---
ELIMINATION Patient voided in urinal dark yellow urine.
[2018-11-17 12:04] LABS: Bilirubin, Total 0.3 mg/dL (0.2-1.0); Potassium 3.4 mmol/L (3.5-5.1); Total Protein 6.5 g/dL (6.4-8.2)
[2018-11-17 12:18] LABS: Magnesium 2.2 mg/dL (1.6-2.6); Phosphorus 2.9 mg/dL (2.5-4.90)
[2018-11-17] MEDS: MORPHINE SULF INJ 2 MG/ML SYRINGE 1ML IV PRN ×2 (13:05→21:32)
[2018-11-17] MEDS: INSULIN LANTUS (GLARGINE) 1 /0.01ml (100units/ml) SC SCH ×2 (13:06→21:33)
--- NOTE | 2018-11-17 16:00 | NUR ---
ELIMINATION Patient requested bedpan was able to void with no bowel movement.
--- NOTE | 2018-11-17 16:45 | NUR ---
FAMILY Received phone call from Susi, italo , correct password given and updated provided to .
--- NOTE | 2018-11-17 17:00 | NUR ---
ULTRASOUND dental service technician at bedside to obtain study.
--- NOTE | 2018-11-17 17:15 | NUR ---
NUTRITION Tube feedings turned back on at a rate of 50mlhr. Will continue to monitor residuals.
--- NOTE | 2018-11-17 19:40 | NUR ---
ELIMINATION MODERATE AMOUNT OF LOOSE, BROWN STOOLS NOTED. CLEANSED AND KEPT DRY AND COMFORTABLE. REPOSITIONED FOR COMFORT.
--- NOTE | 2018-11-17 21:08 | NUR ---
ELIMINATION LARGE AMOUNT OF LOOSE BROWN STOOLS THRU THE BEDPAN NOTED, CLEANSED AND KEPT DRY AND COMFORTABLE. REPOSITIONED FOR COMFORT.
--- NOTE | 2018-11-17 21:23 | NUR ---
NO RESIDUAL VIA PEG TUBE, MED GIVEN
--- NOTE | 2018-11-17 22:00 | NUR ---
No residual via PEG tube, TF increased to 55 ml/hr
[2018-11-18] VITALS (19 sets, daily range): BP systolic 118–159; BP diastolic 39–81
[2018-11-18] MEDS: InsuLIN REG 1unit/0.01ml Soln (100units/ml) SC SCH ×5 (00:18→23:49)
[2018-11-18 03:33] LABS: Hematocrit 28.7 % (41.0-53.0); Hemoglobin 9.2 g/dL (13.5-17.5); Mean Corpuscular Hemoglobin 29.8 pg (28.0-32.0); Mean Corpuscular Hgb Conc. 32.1 g/dL (32.0-36.0); Mean Corpuscular Volume 92.8 fL (80.0-100.0); Platelet Count (auto) 392 10^3/uL (140-450); Red Cell Distribution Width 16.8 % (11.8-14.3); White Blood Cell 28.1 10^3/uL (4.4-10.8)
--- NOTE | 2018-11-18 03:45 | NUR ---
Received a call from , Shira, updated on pt's status after obtaining a password.
[2018-11-18 03:49] LABS: Band Neutrophils % (manual) 0; Basophils % (manual) 0 (0.0-2.0); Blast Cells 0; Eosinophils % (manual) 0 (0-7); Metamyelocytes % 0; Myelocytes % 0; Promyelocytes % 0; Reactive Lymphocytes 0
[2018-11-18 03:53] LABS: Potassium 3.7 mmol/L (3.5-5.1)
[2018-11-18 04:00] LABS: Albumin 1.9 g/dL (3.4-5.0); BUN/Creatinine Ratio 41.2; Bilirubin, Total 0.2 mg/dL (0.2-1.0); Calcium 8.7 mg/dL (8.5-10.1); Magnesium 2.2 mg/dL (1.6-2.6); Phosphorus 2.8 mg/dL (2.5-4.90); Total Protein 6.3 g/dL (6.4-8.2)
--- NOTE | 2018-11-18 04:00 | NUR ---
No residual via peg tube, increased rate to 60 ml/hr.
--- NOTE | 2018-11-18 04:30 | NUR ---
ELIMINATION LARGE AMOUNT OF LIQUID, BROWN STOOLS NOTED, CLEANSED, COMPLETE LINENS AND GOWN CHANGED, REPOSITIONED FOR COMFORT.
--- NOTE | 2018-11-18 04:45 | NUR ---
SACRAL, BUTTOCKS OPTIFOAMS CHANGED
[2018-11-18 04:46] LABS: Lymphocytes % (manual) 7 (10.0-50.0); Monocytes % (manual) 5 (0-12)
--- NOTE | 2018-11-18 05:00 | NUR ---
CHEST TUBE DRESSING CHANGED ASEPTICALLY, MINIMAL AMOUNT OF BLOODY DRAINAGE IN THE TUBE NOTED. NO DISTRESS NOTED.
--- NOTE | 2018-11-18 05:02 | NUR ---
STOOL SPECIMEN SENT FOR C. DIFF
[2018-11-18] MEDS: GABAPENTIN 300 MG CAP PO SCH ×3 (06:00→21:41)
[2018-11-18] MEDS: NYSTATIN (MOUTH-THROAT) 500,000 UNITS/5 ML SUSP MT SCH ×4 (06:22→21:56)
[2018-11-18] MEDS: PIPERACILLIN-TAZOB 3.375GM 100 ML IV SCH ×5 (06:22→23:41)
[2018-11-18] MEDS: ACCU-CHEK COMFORT CURVE STRIP VI SCH ×5 (06:22→23:49)
[2018-11-18] MEDS: INSULIN LANTUS (GLARGINE) 1 /0.01ml (100units/ml) SC SCH ×2 (06:23→21:41)
[2018-11-18] MEDS: MORPHINE SULF INJ 2 MG/ML SYRINGE 1ML IV PRN ×2 (06:36→18:34)
[2018-11-18] MEDS: ALBUTEROL SULF 2.5 MG/0.5ML(0.5%) NEB SOLN NEB SCH ×5 (07:04→22:08)
[2018-11-18] MEDS: IPRATROPIUM BROM 0.5 MG/2.5ML INH SOL NEB SCH ×5 (07:04→22:08)
[2018-11-18] MEDS: ACETYLCYSTEINE 20%(200MG/ML) SOL 4ML NEB SCH ×5 (07:05→22:00)
--- NOTE | 2018-11-18 07:45 | NUR ---
ELIMINATION Received patient on bedpan. Patient used call light for assistance. Patsy-care provided and partial linen change done with the assistance of Alma WATTS. Patient tolerated well. Addendum: 11/18/18 at 0840 by BERENICE CORONA RN Patient voided and had a bowel movement (mixed).
[2018-11-18] MEDS: LORazepam 2MG/ML-1ML VIAL IV PRN (08:16)
--- NOTE | 2018-11-18 08:30 | NUR ---
NUTRITION Glucerna 1.2 changed with tubing infusing at 60ml/hr (goal rate 60ml/hr), no residuals aspirated. Will continue to monitor residuals throughout shift.
[2018-11-18] MEDS: LEVOFLOXACIN 750MG 150 ML IV SCH (09:56)
[2018-11-18] MEDS: SERTRALINE HCL 50 MG TAB PO SCH (09:57)
[2018-11-18] MEDS: METOPROLOL TARTRATE 25 MG TAB PO SCH ×2 (09:57→21:41)
[2018-11-18] MEDS: APIXABAN 5 MG TAB PO SCH ×2 (09:57→21:40)
[2018-11-18] MEDS: FAMOTIDINE (10MG/ML) 2ML VL IV SCH ×2 (09:57→21:40)
--- NOTE | 2018-11-18 10:00 | NUR ---
FAMILY Patients , Susi, at bedside updated on patient condition.
--- NOTE | 2018-11-18 10:35 | NUR ---
PHYSICAL THERAPY Physical therapist X2 at bedside to perform aggressive physical therapy. Patient was able sit on the side of the bed for about a minute before patient mouthed " It hurts, I cant sit up any longer." Patient mouthed that is chest tube site was what was hurting when he was up.
--- NOTE | 2018-11-18 11:55 | NUR ---
ELIMINATION Patient requested bedpan was able to void small bowel movement mixed with urine. Patsy- care provided with the assistance of Ale WATTS and partial linen change done. Patient tolerated well.
--- NOTE | 2018-11-18 12:26 | NUR ---
Pt lying in supine was able to complete x10 reps of each exercise Pt completed ankle pumps, heel slides, gluteal squeezes and hip abd/add Pt was transferred from supine to sitting towards the edge of the bed Pt evangelina fair to sitting up and was able to hold sitting position for approx 15seconds Dayami for trunk support Addendum: 11/18/18 at 1227 by Lyn Salomon PT Amended: Links added.
[2018-11-18] MEDS: HYDROcodone-ACET 5/325MG TAB PO PRN ×2 (12:43→21:42)
--- NOTE | 2018-11-18 18:16 | NUR ---
Respiratory note: At bedside for med neb tx. pt refusing mm20% due to nausea. explained benefits pt still refusing. RN Melany at bedside and aware of med refusal.
--- NOTE | 2018-11-18 18:30 | NUR ---
Respiratory note: sxd via trach for small thick creamy arevalo.
--- NOTE | 2018-11-18 19:09 | NUR ---
OPENING SHIFT RECEIVED REPORT FROM DAY SHIFT RN. ASSUMED CARE OF PATIENT. PATIENT IN BED SLEEPING WITH NO SIGNS OR SYMPTOMS OF SOB, PAIN OR DISTRESS. CURRENTLY ON 11L 40% 02 VIA TRACH MASK - 02 SAT - 97%. LEFT FOREARM IV X2 - CLEAN/DRY/INTACT. RIGHT CHEST TUBE - INTACT/PATENT/DRAINING, CONNECTED TO SUCTION, NO SIGNS OF CREPITUS AROUND CHEST TUBE SITE. RIGHT PEG TUB - INTACT, PLACEMENT VERIFIED VIA AUSCULTATION, NO RESIDUAL PULLED BACK. BED IN LOWEST POSITION, SIDE RAILS UP X2, CALL LIGHT WITHIN REACH. WILL CONTINUE TO MONITOR.
[2018-11-19] VITALS (23 sets, daily range): BP systolic 123–157; BP diastolic 35–69
--- NOTE | 2018-11-19 01:17 | NUR ---
MORNING CARE PERFORMED MORNING CARE WITH CHG WIPES AND WASH CLOTHS TO THE FACE. PARTIAL LINEN CHANGE AND GOWN CHANGED. SKIN REASSESSED AT THIS TIME. REPOSITIONED FOR COMFORT. BED IN LOWEST POSITION SIDE RAILS UP X2, CALL LIGHT WITHIN REACH. WILL CONTINUE TO MONITOR.
[2018-11-19] MEDS: NYSTATIN (MOUTH-THROAT) 500,000 UNITS/5 ML SUSP MT SCH ×4 (06:00→21:56)
[2018-11-19] MEDS: ACETYLCYSTEINE 20%(200MG/ML) SOL 4ML NEB SCH ×2 (06:00→09:58)
[2018-11-19] MEDS: IPRATROPIUM BROM 0.5 MG/2.5ML INH SOL NEB SCH ×5 (06:01→22:29)
[2018-11-19] MEDS: ALBUTEROL SULF 2.5 MG/0.5ML(0.5%) NEB SOLN NEB SCH ×5 (06:01→22:29)
[2018-11-19] MEDS: GABAPENTIN 300 MG CAP PO SCH ×3 (06:14→21:56)
[2018-11-19] MEDS: PIPERACILLIN-TAZOB 3.375GM 100 ML IV SCH ×4 (06:14→23:52)
[2018-11-19] MEDS: InsuLIN REG 1unit/0.01ml Soln (100units/ml) SC SCH ×3 (06:15→17:38)
[2018-11-19] MEDS: ACCU-CHEK COMFORT CURVE STRIP VI SCH ×4 (06:15→23:43)
[2018-11-19] MEDS: HYDROcodone-ACET 5/325MG TAB PO PRN ×3 (06:15→21:57)
[2018-11-19] MEDS: INSULIN LANTUS (GLARGINE) 1 /0.01ml (100units/ml) SC SCH ×3 (06:54→21:58)
--- NOTE | 2018-11-19 06:55 | NUR ---
OPENING SHIFT PATIENT IN BED SLEEPING WITH NO SIGNS OR SYMPTOMS OF SOB, PAIN OR DISTRESS. CURRENTLY ON 11L 40% 02 VIA TRACH MASK - 02 SAT - 97%. LEFT FOREARM IV X2 - CLEAN/DRY/INTACT. RIGHT CHEST TUBE - INTACT/PATENT/DRAINING, CONNECTED TO SUCTION, NO SIGNS OF CREPITUS AROUND CHEST TUBE SITE. RIGHT PEG TUB - INTACT, PLACEMENT VERIFIED VIA AUSCULTATION, NO RESIDUAL PULLED BACK. BED IN LOWEST POSITION, SIDE RAILS UP X2, CALL LIGHT WITHIN REACH. WILL ENDORSE CARE TO DAY SHIFT RN.. Addendum: 11/19/18 at 0724 by LIYAH TRINH RN RN END OF SHIFT
--- NOTE | 2018-11-19 07:59 | NUR ---
BOWEL MOVEMENT PATIENT HAD BROWN BOWEL MOVEMENT. PATIENT CLEANSED AND PARTIAL LINEN CHANGE PERFORMED AT THIS TIME
[2018-11-19] MEDS: LORazepam 2MG/ML-1ML VIAL IV PRN (08:14)
--- NOTE | 2018-11-19 09:27 | NUR ---
FAMILY AND SON AT BEDSIDE. UPDATED ON PATIENT STATUS. ALL QUESTIONS AND CONCERNS ADDRESSED AT THIS TIME
[2018-11-19] MEDS: FAMOTIDINE (10MG/ML) 2ML VL IV SCH ×2 (10:24→21:56)
[2018-11-19] MEDS: METOPROLOL TARTRATE 25 MG TAB PO SCH ×2 (10:25→21:57)
[2018-11-19] MEDS: LEVOFLOXACIN 750MG 150 ML IV SCH (10:25)
[2018-11-19] MEDS: APIXABAN 5 MG TAB PO SCH ×2 (10:25→21:57)
[2018-11-19] MEDS: MULTIPLE VITAMINS W/ MINERALS TAB PO SCH (10:25)
[2018-11-19] MEDS: SERTRALINE HCL 50 MG TAB PO SCH (10:25)
--- NOTE | 2018-11-19 11:10 | NUR ---
Nutrition Follow-up Notes Wt.: 52.0 kg Pt's on Trach collar, at bedside when rounded earlier. Pt's NPO, currently on EN support with Glucerna 1.2 Eddie @ 60 ml/hr via PEG tube providing 1728 kcal, 86 gms protein and 966 ml free water, tolerates feeding well, no residuals noted by RN this morning. Pt with adequate EN support d/t mod initiation rate delivery of concentrated formula aeb current EN infusion meets 76-92% of est caloric needs and 81-114% of est protein needs. Est. Needs IBW (75 kg): 6263-8298 kcal (25-30 kcal/kgIBW), 75-105 gms pro (1.0-1.4 gms/kgIBW d/t severe hypoalbuminemia, CA). Will continue to monitor pertinent labs and reassess nutrient need prn Labs: GLU 235 H, CO2 34 H, ALB 1.9 L. Skin: Atilio scale 13, mod risk, pt's pressure ulcer on right heel and medial sacrum per oil heater operator. Pls refer to latest bunghole borer's notes for further details re: tx plans. GI: Pt had 2 BM this morning per oil heater operator. PES: Altered nutrition related lab values r/t current/chronic medical condition aeb mod hypoalb hyperglycemia Increased nutrient needs r.t chronic medical condition aeb pt's CA, severe underwt, EN support via PEG and NPO Will continue to monitor NPO status, EN tolerance, skin status, pertinent labs and weight trend. F/u in 2 to 3 days. Rec.: 1.) Consider gradual increase on feeding rate of Glucerna 1.2 Eddie to 70 ml/hr goal rate as tolerated if medically appropriate. 2.) If Albumin continues trending down, consider Prostat 1 pkt BID. 3.) Consider daily MVI with minerals and Asc acid 500 mgs BID. 4.) Refer pt to CDE/RD for further nutrition education and weight monitoring upon discharge. 5.) Continue current plan of care.
--- NOTE | 2018-11-19 11:18 | NUR ---
PHYSICAL THERAPY AT BEDSIDE WORKING WITH PATIENT
--- NOTE | 2018-11-19 19:19 | NUR ---
REPORT GIVEN TO JONATHAN WATTS TO ASSUME CARE
--- NOTE | 2018-11-19 19:20 | NUR ---
OPENING NOTES ASSUMED CARE, LAYING ON BED WITH HIS EYES CLOSED WITH NO SIGNS OF DISTRESS. RESPIRATIONS EVEN AND UNLABORED, STILL ON TRACH COLLAR, SPO2 99%, RIGHT CTT IN PLACE, NO DRAINAGE NOTED, PIV'S IN THE RFA X 2 PATENT AND INTACT, ON SPECIALTY AIR BED, W/ SCD TO THE RIGHT LEG, BOTH LEGS OFFLOADED WITH PILLOWS. BED IN LOWEST POSITION WITH SIDE RAILS UP, BED ALARM ON AND CALL LIGHT WITHIN REACH. ENCOURAGED TO CALL IF HE NEEDS SOMETHING. WILL CONTINUE CARE.
--- NOTE | 2018-11-19 21:23 | NUR ---
SUCTIONING DEEP TRACHEAL SUCTIONING DONE, MODERATE AMOUNT OF WHITISH SECRETIONS NOTED, SPO2 94%. NO DISTRESS NOTED.
--- NOTE | 2018-11-19 22:00 | NUR ---
NO RESIDUALS VIA TF, RATE KEPT @ 60 ML/HR.
--- NOTE | 2018-11-19 22:43 | NUR ---
PLACED ON A BEDPAN AND HAD MODERATE AMOUNT OF LOOSE, BROWN STOOLS MIXED WITH URINE. CLEANSED AND KEPT DRY AND COMFORTABLE. REPOSITIONED FOR COMFORT.
[2018-11-20] VITALS (20 sets, daily range): BP systolic 112–150; BP diastolic 51–80
--- NOTE | 2018-11-20 03:30 | NUR ---
ELIMINATION PLACED ON A BEDPAN, MODERATE AMOUNT OF LOOSE, BROWN STOOLS NOTED. CLEANSED, SACRAL, BUTTOCKS OPTIFOAM CHANGED. COMPLETE LINENS CHANGED. REPOSITIONED FOR COMFORT.
[2018-11-20 04:09] LABS: Hemoglobin 9.8 g/dL (13.5-17.5); Mean Corpuscular Hemoglobin 30.3 pg (28.0-32.0); Mean Corpuscular Hgb Conc. 32.6 g/dL (32.0-36.0); Mean Corpuscular Volume 92.9 fL (80.0-100.0); Platelet Count (auto) 450 10^3/uL (140-450); Red Blood Cells 3.23 10^6/uL (4.5-5.90); Red Cell Distribution Width 16.8 % (11.8-14.3); White Blood Cell 28.9 10^3/uL (4.4-10.8)
[2018-11-20 04:16] LABS: Basophils % (manual) 0 (0.0-2.0); Blast Cells 0; Metamyelocytes % 0; Myelocytes % 0; Promyelocytes % 0; Reactive Lymphocytes 0
[2018-11-20 04:19] LABS: Potassium 4.1 mmol/L (3.5-5.1)
[2018-11-20 04:25] LABS: BUN/Creatinine Ratio 37.5; Calcium 8.7 mg/dL (8.5-10.1)
[2018-11-20 04:27] LABS: Bilirubin, Total 0.2 mg/dL (0.2-1.0); Total Protein 6.4 g/dL (6.4-8.2)
[2018-11-20] MEDS: MORPHINE SULF INJ 2 MG/ML SYRINGE 1ML IV PRN ×3 (04:30→18:06)
[2018-11-20 05:32] LABS: Band Neutrophils % (manual) 4; Eosinophils % (manual) 5 (0-7); Lymphocytes % (manual) 7 (10.0-50.0); Monocytes % (manual) 5 (0-12)
[2018-11-20] MEDS: ACCU-CHEK COMFORT CURVE STRIP VI SCH ×3 (06:06→18:01)
[2018-11-20] MEDS: NYSTATIN (MOUTH-THROAT) 500,000 UNITS/5 ML SUSP MT SCH ×4 (06:07→23:10)
[2018-11-20] MEDS: INSULIN LANTUS (GLARGINE) 1 /0.01ml (100units/ml) SC SCH ×2 (06:07→23:10)
[2018-11-20] MEDS: GABAPENTIN 300 MG CAP PO SCH ×3 (06:07→23:10)
[2018-11-20] MEDS: PIPERACILLIN-TAZOB 3.375GM 100 ML IV SCH ×3 (06:07→17:56)
[2018-11-20] MEDS: InsuLIN REG 1unit/0.01ml Soln (100units/ml) SC SCH ×4 (06:08→18:15)
[2018-11-20] MEDS: ALBUTEROL SULF 2.5 MG/0.5ML(0.5%) NEB SOLN NEB SCH ×5 (06:13→22:59)
[2018-11-20] MEDS: IPRATROPIUM BROM 0.5 MG/2.5ML INH SOL NEB SCH ×5 (06:13→22:59)
--- NOTE | 2018-11-20 06:13 | NUR ---
Respiratory note: PT ON COOL MIST AEROSOL TX. WATER WAS CHANGED AT THIS TIME.
--- NOTE | 2018-11-20 06:55 | NUR ---
CLOSING NOTES RESTING ON BED WITH HIS EYES CLOSED WITH NO SIGNS OF DISTRESS. WILL GIVE THE REPORT TO DAY SHIFT RN.
--- NOTE | 2018-11-20 07:30 | NUR ---
REPORT RECEIVED ASSUMING CARE
[2018-11-20] MEDS: HYDROcodone-ACET 5/325MG TAB PO PRN ×2 (07:56→16:54)
--- NOTE | 2018-11-20 08:00 | NUR ---
INITIAL CONTACT ASSUMED CARE OF PATIENT PATIENT APPEARS TO BE RESTING IN BED COMFORTABLY IN SEMI-FOWLERS POSITION AT THIS TIME. AAOX4, VITAL SIGNS WITHIN NORMAL LIMITS. NO S/S OF DISTRESS NOTED. PATIENT DENIES PAIN. PLAN OF CARE DISCUSSED WITH PATIENT, PATIENT VERBALIZED UNDERSTANDING. SAFETY MAINTAINED, WILL CONTINUE TO MONITOR Addendum: 11/21/18 at 0801 by Mirna Stewart RN TIME SHOULD BE 1954
[2018-11-20] MEDS: MULTIPLE VITAMINS W/ MINERALS TAB PO SCH (10:17)
[2018-11-20] MEDS: SERTRALINE HCL 50 MG TAB PO SCH (10:19)
[2018-11-20] MEDS: METOPROLOL TARTRATE 25 MG TAB PO SCH ×2 (10:19→23:10)
[2018-11-20] MEDS: FAMOTIDINE (10MG/ML) 2ML VL IV SCH ×2 (10:19→23:10)
[2018-11-20] MEDS: APIXABAN 5 MG TAB PO SCH ×2 (10:19→23:10)
[2018-11-20] MEDS: LEVOFLOXACIN 750MG 150 ML IV SCH (10:20)
--- NOTE | 2018-11-20 11:30 | NUR ---
WOUND CARE NURSE AT BEDSIDE
--- NOTE | 2018-11-20 11:50 | NUR ---
WOUND CARE NOTE: Wound care in to see patient for reevaluation of wounds that are present on admission. Patient continue resting on air bed in ICU Rm. 103. He's on O2 via trach collar. He's awake, alert and oriented. He's in no stated pain at this time and appears to be in no pain using Malloy Rebollar Faces Pain Scale. His Atilio score is 12. Patient's at bedside. Patient's L forearm dry scabbed wound (2x1cm) from old resolving blister remain the same, clean and dry, left open to air.His Rt heel DTI (1.5x1cm) is resolving as well; now with thin brown scab, pink periwound, clean and dry, left open to air. Left dorsal foot abrasion continue to improve, remain intact with brown pigmented skin. Patient's Stage 3 pressure injury to medial sacrum (1.5x1.2cm) is improving also, with clean, pink and yellow wound bed, brown pigmented periwound, scant serous drainage. L ischium pressure injury (3.5x4cm) covered with black necrotic tissue at center, pale pink at wound edges, brown pigmented periwound, scant serous drainage noted. R ischium wound is much improved, smaller in size (0.8x0.7cm) red, clean, wound bed, brown pigmented periwound, no drainage noted. Sacral and bilateral ischium wounds has no odor noted. Cleansed wounds with wound cleanser, patted dry with gauze, applied Thera honey gauze, and covered with Opti foam gentle dressing. Rt lower back pink/red scar from previous blisters/shingles site remain the same, cleansed and applied Z Guard cream. New Photograph of wounds are taken for reference. Repositioned patient for comfort facing his Lt side, redistributed pressure points with pillows. Patient tolerated well. Patient's and nurse at bedside. RECOMMENDATION:Continuation of all wound care orders prescribed by MD, continue with skin/wound plan of care, continue monitoring by wound care while patient is hospitalized. Addendum: 11/20/18 at 1732 by Jamee Granger RN Amended: Links added.
--- NOTE | 2018-11-20 12:42 | NUR ---
PAGED PT TO GET PATIENT OOB
[2018-11-20 14:43] LABS: INR 1.01 (0.9-1.15); Partial Thromboplastin Time 33.3 sec (23.64-32.05)
--- NOTE | 2018-11-20 14:51 | NUR ---
PT SAT IN CHAIR FOR 1HR 20MIN Addendum: 11/20/18 at 1452 by URIEL DUQUE PTT Amended: Links added.
--- NOTE | 2018-11-20 17:10 | NUR ---
PICC LINE NURSE AT BEDSIDE, SON IN WAITING ROOM
--- NOTE | 2018-11-20 18:10 | NUR ---
PICC line placement Patient/Patient significant other educated on need for PICC line placement. All risks and benefits explained and all questions and concerns addressed prior to procedure. Noted past medical history and allergies with no contraindications. INR and Plt counts within acceptable range. 5fr PICC line inserted via left brachial vein using [employer]'s [employer] US and Tip Location System. Sterile technique with maximum barrier precautions utilized. Blood return obtained from each of [3 lumens and each flushed easily with NS using proper technique. PICC secured with Stat-lock; biodisc and occlusive dressing applied. Stat portable chest x-ray obtained for PICC tip placement. *Baseline Arm Circumference 21cm. PICC lot #[id number]. INTERNAL LENGTH 44CM EXTERNAL LENGTH 0CM
[2018-11-20] MEDS: Glucerna 1.2 Cal 1Liter BOTTLE GT SCH (18:16)
--- NOTE | 2018-11-20 18:50 | NUR ---
PICC LINE IN APPROPRIATE POSITION PER CXR REPORT, ZOSYN MOVED FROM 22 G PIV IN LEFT AC TO LEFT UPPER ARM PICC.
--- NOTE | 2018-11-20 18:57 | NUR ---
Respiratory note: PT CURRENTLY ON COOL AEROSOL @ 9LPM, FIO2 35%. PT AWAKE AND ALERT AND RESPONSIVE. PT HAS A SIZE 8.0 SHILEY. CUFFED BUT NOT INFLATED. NO SKIN BREAKDOWN AROUND STOMA SITE. SXN RETURN OF MOD THICK CREAMY SECRETIONS. HHN TX ADMINISTERED INLINE WITH NO COMPLICATIONS NOTED.
--- NOTE | 2018-11-20 19:39 | NUR ---
REPORT GIVEN TO OANH WATTS
--- NOTE | 2018-11-20 21:55 | NUR ---
ELIMINATION PATIENT HAD SMALL BM/BED AVILA USED TOTAL OF ONE VOID AND ONE BM AT THIS TIME
--- NOTE | 2018-11-20 22:10 | NUR ---
Patient bathe/linen change/Wound Care Patient given complete bath. Skin integrity assessed for any changes. full Linen changed. Patient repositioned for comfort. opti foam to sacrum changed, wound cleaned with hydrogen peroxide, thera honey placed on wound before opti foam placed gown changed. Patient tolerated well. Safety maintained, will continue to monitor
[2018-11-21] VITALS (24 sets, daily range): BP systolic 123–152; BP diastolic 48–88
[2018-11-21] MEDS: PIPERACILLIN-TAZOB 3.375GM 100 ML IV SCH ×5 (00:38→18:25)
[2018-11-21] MEDS: ACCU-CHEK COMFORT CURVE STRIP VI SCH ×4 (00:40→18:25)
[2018-11-21] MEDS: InsuLIN REG 1unit/0.01ml Soln (100units/ml) SC SCH ×5 (00:45→18:34)
--- NOTE | 2018-11-21 03:30 | NUR ---
Respiratory note: TACH CARE DONE WITH NO COMPLICATIONS NOTED. CHANGED GAUZE, NO DRAINAGE NOTED. INNER CANNULA CLEANED AND DRIED AND PLACED BACK. 4EYES OBSERVED BY JAYJAY WATTS. NO BREAKDOWN NOTED. JUST A LITTLE REDNESS. PT REMAINS ON COOL AEROSOL @ 40%, 9LPM. WATER BOTTLE CHANGED.
--- NOTE | 2018-11-21 04:00 | NUR ---
ELIMINATION SMALL BROWN LOOSE/DIARRHEA NOTED WITH LARGE AMOUNT OF URINE BED AVILA USED
--- NOTE | 2018-11-21 04:20 | NUR ---
Patient bathe/linen change/Wound Care Patient given complete bath. Skin integrity assessed for any changes. full Linen changed. Patient repositioned for comfort. 3 opti foam to sacrum changed, One opti foam to left hip changed, opti foam placed on upper middle back prophylactically wound cleaned with hydrogen peroxide, thera honey placed on wound before opti foam placed gown changed. Patient tolerated well. Safety maintained, will continue to monitor.
[2018-11-21 04:33] LABS: Hematocrit 27.3 % (41.0-53.0); Mean Corpuscular Hemoglobin 30.1 pg (28.0-32.0); Mean Corpuscular Hgb Conc. 32.9 g/dL (32.0-36.0); Mean Corpuscular Volume 91.5 fL (80.0-100.0); Platelet Count (auto) 432 10^3/uL (140-450); Red Blood Cells 2.99 10^6/uL (4.5-5.90); Red Cell Distribution Width 16.5 % (11.8-14.3)
[2018-11-21 04:41] LABS: White Blood Cell 31.9 10^3/uL (4.4-10.8)
[2018-11-21 04:42] LABS: Basophils % (manual) 0 (0.0-2.0); Blast Cells 0; Metamyelocytes % 0; Myelocytes % 0; Promyelocytes % 0; Reactive Lymphocytes 0
[2018-11-21 04:49] LABS: Potassium 3.8 mmol/L (3.5-5.1)
[2018-11-21 04:53] LABS: BUN/Creatinine Ratio 39.5; Calcium 8.8 mg/dL (8.5-10.1); Magnesium 2.4 mg/dL (1.6-2.6)
--- NOTE | 2018-11-21 05:00 | NUR ---
SPOUSE CALLED SPOUSE WAS UPDATED ON PATIENTS PLAN OF CARE, VITAL SIGNS, STATE OF MIND ALL QUESTIONS AND CONCERNS WERE ANSWERED
[2018-11-21 05:12] LABS: Band Neutrophils % (manual) 2; Eosinophils % (manual) 3 (0-7); Lymphocytes % (manual) 8 (10.0-50.0); Monocytes % (manual) 6 (0-12)
--- NOTE | 2018-11-21 06:00 | NUR ---
RT AT BEDSIDE FIO2 DECREASED TO 30%
[2018-11-21] MEDS: NYSTATIN (MOUTH-THROAT) 500,000 UNITS/5 ML SUSP MT SCH ×5 (06:40→22:58)
[2018-11-21] MEDS: INSULIN LANTUS (GLARGINE) 1 /0.01ml (100units/ml) SC SCH ×3 (06:58→22:58)
[2018-11-21] MEDS: ALBUTEROL SULF 2.5 MG/0.5ML(0.5%) NEB SOLN NEB SCH ×5 (06:58→22:16)
[2018-11-21] MEDS: IPRATROPIUM BROM 0.5 MG/2.5ML INH SOL NEB SCH ×5 (06:58→22:15)
--- NOTE | 2018-11-21 07:30 | NUR ---
REPORT: REPORT RECEIVED FROM COMPUTER PROGRAMMING MANAGER RN TO RESUME CARE OF PT.
--- NOTE | 2018-11-21 07:50 | NUR ---
NURSES NOTE AFTER FULL REPORT WAS GIVEN TO PALAK GRAF SHE CHECKED THE eMAR AND STATED THAT THERE WERE MEDICATIONS THAT HAD NOT BEEN CHARTED AND ASKED ME IF THE MEDICATIONS WERE GIVEN. I REPLIED THAT I JUST FINISHED WITH MY BED 8, THE MEDICATIONS WERE GIVEN AND THAT I WAS GOING TO DOCUMENT THEM RIGHT AWAY. PALAK SAID THAT SHE WOULD DOCUMENT THEM. I TOLD HER THAT I WOULD TAKE CARE OF IT BUT SHE REPLIED "I HAVE THE eMAR UP AND I CAN EASILY CHART THEM." A.M. RN PALAK ALSO STATED THAT SHE WOULD PASS THE NEURONTIN. NEURONTIN WAS GIVEN AT 0853 HOWEVER THE ZOSYN, LANTUS, AND REG INSULIN THAT I TOLD HER WERE GIVEN, WERE NEVER CHARTED.
--- NOTE | 2018-11-21 08:00 | NUR ---
OPEN: ASSESSMENT COMPLETE. SEE NURSING FLOW SHEET FOR UPDATED DETAILS. PT IS ALERT AND ORIENTED X4, OBEYS COMMANDS, ABLE TO SHAKE HEAD YES OR NO APPROPRIATELY, APHASIC WITH TRACHEOSTOMY IN PLACE, MOUTHING WORDS AND ABLE TO COMMUNICATE. TRACH IN PLACE, #8 SHILEY WITH TRACH COLLAR WITH 30% FIO2. 3LUMEN PICC LINE TO RIGHT UPPER ARM RUNNING .9NS AT TKO. NO OLIVO IN PLACE PATIENT USES URINAL. ABLE TO USE CALL LIGHT WHEN NEEDED. CONTINENT WITH USE OF BEDPAN. ON SPECIALTY MATTRESS. ALL MONITORS HOOKED UP TO PT FOR CONTINUOUS MONITORING. SHARED POC WITH PT AND ABLE TO VERBALIZE UNDERSTANDING FOR SHIFT.
[2018-11-21] MEDS: GABAPENTIN 300 MG CAP PO SCH ×3 (08:53→22:58)
[2018-11-21] MEDS: LORazepam 2MG/ML-1ML VIAL IV PRN (09:03)
--- NOTE | 2018-11-21 09:03 | NUR ---
ANXIETY: PT STARTING TO APPEAR ANXIOUS, INCREASED RESPIRATORY RATE, SHALLOW BREATHING. ALL VITAL SIGNS IN STABLE RANGE AT TIME. DENIES PAIN BUT DOES SHAKE HEAD YES AND MOUTH THAT HE IS ANXIOUS. MEDICATED WITH ATIVAN PER MD ORDERS. WILL CONTINUE TO MONITOR.
--- NOTE | 2018-11-21 09:10 | NUR ---
ELIMINATION/SKIN CARE: PT PLACED ONTO BEDPAN. BEDPAN GIVEN FOR DIARRHEA AND URINE. AFTER ELIMINATION, SKIN CARE, LINEN CHANGE AND BENEDICT-CARE GIVEN. PT ABLE TO ASSIST WITH TURNING IN BED. TOLERATED WELL.
--- NOTE | 2018-11-21 09:10 | NUR ---
IV: REMOVED IV TO LEFT FOREARM WITH CATHETER FULLY INTACT. PT TOLERATED WELL.
--- NOTE | 2018-11-21 09:40 | NUR ---
UPDATE: PT CALMER AT TIME, DENIES FEELING ANXIOUS, STABLE RESPIRATORY RATE AND NOT TACHYPNEIC AT TIME.
--- NOTE | 2018-11-21 10:00 | NUR ---
FAMILY: FAMILY IN AT BEDSIDE.
--- NOTE | 2018-11-21 10:15 | NUR ---
OOB: PHYSICAL THERAPY IN AT BEDSIDE. UPDATED ON PT STATUS AND PLAN OF CARE. PHYSICAL THERAPY ASSISTED PT OUT OF BED TO BEDSIDE CHAIR. PT ABLE TO TAKE 3 STEPS TOTAL, VERY WEAK ON AMBULATION BUT TOLERATED WELL. FAMILY REMAINS AT BEDSIDE AND ASSISTED WITH TRANSFER. PT VITAL SIGNS REMAINED IN STABLE RANGE THROUGHOUT TRANSFER AND ACTIVITY. CONNECTED TO BEDSIDE MONITOR, CHEST TUBE IN SECURE POSITION AND CALL LIGHT IN REACH. CONTINUE CARE.
[2018-11-21] MEDS: SERTRALINE HCL 50 MG TAB PO SCH (10:28)
[2018-11-21] MEDS: MULTIPLE VITAMINS W/ MINERALS TAB PO SCH (10:28)
[2018-11-21] MEDS: APIXABAN 5 MG TAB PO SCH ×2 (10:28→22:58)
[2018-11-21] MEDS: FAMOTIDINE (10MG/ML) 2ML VL IV SCH ×2 (10:28→22:58)
[2018-11-21] MEDS: LEVOFLOXACIN 750MG 150 ML IV SCH (10:28)
[2018-11-21] MEDS: METOPROLOL TARTRATE 25 MG TAB PO SCH ×2 (10:31→22:58)
[2018-11-21] MEDS: HYDROcodone-ACET 5/325MG TAB PO PRN (10:52)
--- NOTE | 2018-11-21 10:58 | NUR ---
UPDATE: PT REMAINS SITTING IN BEDSIDE CHAIR. RT AT BEDSIDE WITH BREATHING TREATMENT AND PT DENIES ANY SHORTNESS OF BREATH. VITAL SIGNS IN STABLE RANGE AT TIME.
--- NOTE | 2018-11-21 11:49 | NUR ---
Nutrition Follow-up Notes Wt.: 52.2 kg Pt's room curtain's closed, RN at bedside during rounds earlier. Pt's on Trach collar remains NPO, currently on EN support with Glucerna 1.2 Eddie @ 60 ml/hr via PEG tube providing 1728 kcal, 86 gms protein and 966 ml free water, tolerates feeding, had 10 ml residuals noted by RN this morning. Pt with adequate EN support d/t mod initiation rate delivery of concentrated formula aeb current EN infusion meets 76 to 92% of est caloric needs and 81 to 114% of est protein needs. Est. Needs IBW (75 kg): 8671-0506 kcal (25-30 kcal/kgIBW), 75-105 gms pro (1.0-1.4 gms/kgIBW d/t severe hypoalbuminemia, CA). Will continue to monitor pertinent labs and reassess nutrient need prn Labs: Gluc 209 H, Cl 97 L, Cr 0.38 L, AST 52 H, ALT 86 H, ALP 490 H; Alb 2.0 L. Skin: Atilio scale 15, mod risk, pt's pressure ulcer on right heel and medial sacrum per shoe fitter. Pls refer to latest assistant grocery's notes for further details re: tx plans. GI: Pt had 2x BM this morning per shoe fitter. PES: Altered nutrition related lab values r/t current/chronic medical condition aeb mod hypoalb hyperglycemia Increased nutrient needs r.t chronic medical condition aeb pt's [place], severe underwt, EN support via PEG and NPO Will continue to monitor NPO status, EN tolerance, skin status, pertinent labs and weight trend. F/u in 2 to 3 days. Rec.: 1.) Consider gradual increase on feeding rate of Glucerna 1.2 Eddie to 70 ml/hr goal rate as tolerated if medically appropriate. 2.) If Albumin continues trending down, consider Prostat 1 pkt BID. 3.) Consider daily MVI with minerals and Asc acid 500 mgs BID. 4.) Refer pt to CDE/RD for further nutrition education and weight monitoring upon discharge. 5.) Continue current plan of care.
--- NOTE | 2018-11-21 12:10 | NUR ---
MD VISIT: DR. CRUZ IN AT BEDSIDE. UPDATED ON PT FULL STATUS AND AWARE OF CURRENT FINDINGS. SPOKE TO IN DETAIL ABOUT STATUS AT TIME AND ALL QUESTIONS AND CONCERNS ADDRESSED. OK TO REMOVE CHEST TUBE TODAY. AWARE OF CHEST XRAY AND ALL UPDATED LAB VALUES AT TIME. PLAN TO CARRY OUT ORDERS.
--- NOTE | 2018-11-21 12:35 | NUR ---
BACK TO BED: PAGED PHYSICAL THERAPY AND PATIENT TAKEN BACK TO BED. PATIENT ABLE TO WALK TOTAL OF 4 STEPS, WEAKNESS BUT REMAINED STABLE THROUGHOUT. VITAL SIGNS IN STABLE RANGE AND NO SHORTNESS OF BREATH NOTED AT TIME.
--- NOTE | 2018-11-21 12:40 | NUR ---
CHEST TUBE: DR. CRUZ IN AT BEDSIDE. REMOVED CHEST TUBE, COVERED WITH PETROLEUM GAUZE AND STERILE 4X4. PT TOLERATED WELL.
--- NOTE | 2018-11-21 12:44 | NUR ---
RT PAGE: PAGED RT TO REQUEST PASSY-MIRROR VALVE. RT CALLED BACK AND WILL BE DOWN SHORTLY TO BRING. FAMILY AWARE.
--- NOTE | 2018-11-21 13:05 | NUR ---
RT: RT AT BEDSIDE FOR VALVE CHANGE. FAMILY PRESENT.
--- NOTE | 2018-11-21 15:00 | NUR ---
PT WANTS TO SLEEP, SPEAKING VALVE REMOVED AND PUT IN BOX. SPEAKING VALVE PLACED IN A BAG. PT PLACED ON CA AT 30% AT 8L. NO DISTRESS NOTED. RN MYRIAM AT BEDSIDE. WILL CONTINUE TO MONITOR PT.
--- NOTE | 2018-11-21 16:35 | NUR ---
UPDATE: PT RESTING AT TIME. VITAL SIGNS IN STABLE RANGE AT TIME.
--- NOTE | 2018-11-21 18:50 | NUR ---
CLOSING NOTE: ASSESSMENT COMPLETE. PT REMAINS ALERT AND ORIENTED X4, OBEYS COMMANDS, ABLE TO SHAKE HEAD YES OR NO APPROPRIATELY, APHASIC WITH TRACHEOSTOMY IN PLACE, MOUTHING WORDS AND ABLE TO COMMUNICATE. TRACH IN PLACE, #8 SHILEY WITH TRACH COLLAR WITH 30% FIO2. 3LUMEN PICC LINE TO RIGHT UPPER ARM RUNNING .9NS AT TKO. NO OLIVO IN PLACE PATIENT USES URINAL. ABLE TO USE CALL LIGHT WHEN NEEDED. CONTINENT WITH USE OF BEDPAN. ON SPECIALTY MATTRESS. ALL MONITORS HOOKED UP TO PT FOR CONTINUOUS MONITORING. SHARED POC WITH PT AND ABLE TO VERBALIZE UNDERSTANDING FOR SHIFT. AWARE THAT SHIFT CHANGE WILL BE TAKING PLACE.
--- NOTE | 2018-11-21 19:09 | NUR ---
RT NOTE PT WAS SEEN BY RT FOR HHN TX AND SPUTUM COLLECTION. PT TOLERATES WELL VIA TRACH COLLAR. PT WAS SUCTIONED FOR SPUTUM CULTURE AND SENT TO LAB. PT IS TRACHED WITH 8.0 SHILEY. ROCIO CORONA AT BEDSIDE. CONT ORDERED Addendum: 11/21/18 at 1918 by Lillian Elam RT Amended: Links added.
--- NOTE | 2018-11-21 19:30 | NUR ---
REPORT: REPORT GIVEN TO TICKET CLERK RN TO RESUME CARE OF PT.
--- NOTE | 2018-11-21 21:40 | NUR ---
PT. HAD LOOSE, MODERATE, LIQUID, BM-BROWN; BENEDICT-CARE PROVIDED; PT. TOLERATED FAIR.
--- NOTE | 2018-11-21 22:15 | NUR ---
RT NOTE PT WAS SEEN BY RT FOR HHN TX. PT [id number] WELL VIA TRACH COLLAR. PT DENIES SUCTION AT THIS TIME. CONT ORDERED Addendum: 11/21/18 at 2323 by Lillian Elam RT Amended: Links added.
--- NOTE | 2018-11-21 22:40 | NUR ---
PT. HAD LOOSE, MODERATE, LIQUID, BROWN STOOL; BENEDICT-CARE PROVIDED; PT. TOLERATED FAIR.
[2018-11-21] MEDS: MORPHINE SULF INJ 2 MG/ML SYRINGE 1ML IV PRN (22:58)
[2018-11-22] VITALS (24 sets, daily range): BP systolic 118–159; BP diastolic 56–100
--- NOTE | 2018-11-22 03:45 | NUR ---
PT. HAD LOOSE, LIQUID, BROWN, MODERATE STOOL; BENEDICT-CARE PROVIDED; PT. TOLERATED FAIR.
[2018-11-22] MEDS: ACCU-CHEK COMFORT CURVE STRIP VI SCH ×4 (04:00→23:10)
[2018-11-22] MEDS: InsuLIN REG 1unit/0.01ml Soln (100units/ml) SC SCH ×4 (04:00→23:10)
[2018-11-22] MEDS: MORPHINE SULF INJ 2 MG/ML SYRINGE 1ML IV PRN ×4 (04:02→23:11)
[2018-11-22 04:19] LABS: Hematocrit 28.5 % (41.0-53.0); Hemoglobin 9.3 g/dL (13.5-17.5); Mean Corpuscular Hemoglobin 29.9 pg (28.0-32.0); Mean Corpuscular Hgb Conc. 32.8 g/dL (32.0-36.0); Mean Corpuscular Volume 91.3 fL (80.0-100.0); Platelet Count (auto) 493 10^3/uL (140-450); Red Blood Cells 3.12 10^6/uL (4.5-5.90); Red Cell Distribution Width 16.7 % (11.8-14.3); White Blood Cell 29.7 10^3/uL (4.4-10.8)
[2018-11-22 04:23] LABS: Basophils % (manual) 0 (0.0-2.0); Blast Cells 0; Metamyelocytes % 0; Myelocytes % 0; Promyelocytes % 0; Reactive Lymphocytes 0
--- NOTE | 2018-11-22 04:50 | NUR ---
RT NOTE PT WAS SEEN BY RT FOR TRACH CARE. PT TOLERATED WELL WITHOUT INCIDENT. CONT ORDERED Addendum: 11/22/18 at 0452 by Lillian Elam RT Amended: Links added.
[2018-11-22 05:31] LABS: Band Neutrophils % (manual) 3; Eosinophils % (manual) 3 (0-7); Lymphocytes % (manual) 2 (10.0-50.0); Monocytes % (manual) 5 (0-12)
[2018-11-22] MEDS: ALBUTEROL SULF 2.5 MG/0.5ML(0.5%) NEB SOLN NEB SCH ×5 (06:10→22:02)
[2018-11-22] MEDS: IPRATROPIUM BROM 0.5 MG/2.5ML INH SOL NEB SCH ×5 (06:10→22:02)
[2018-11-22] MEDS: GABAPENTIN 300 MG CAP PO SCH ×3 (06:45→23:09)
[2018-11-22] MEDS: PIPERACILLIN-TAZOB 3.375GM 100 ML IV SCH ×3 (06:45→18:21)
--- NOTE | 2018-11-22 07:30 | NUR ---
REPORT RECEIVED FROM QUALITY PROCESS AUDITOR NURSE. PATIENT RESTING IN BED AT THIS TIME. RESPIRATIONS EVEN AND UNLABORED. NO SIGNS OF ACUTE DISTRESS NOTED. CALL LIGHT IN REACH, BED IN LOW POSITION. WILL CONTINUE TO MONITOR.
--- NOTE | 2018-11-22 08:35 | NUR ---
RT NOTE: PT WAS PLACED ON SPEAKING VALVE AT THIS TIME. PT WAS SUCTIONED PRIOR, DOWN TRACH AND ORALLY. CUFF WAS DEFLATED. PT WAS PLACED ON 3L NC. PT TOLERATING WELL NO ADVERSE REACTIONS. TRACH GAUZE WAS REPLACED AT THIS TIME. NO REDNESS NOTED. RN AT BEDSIDE AWARE OF CHANGES. WILL CONTINUE TO MONITOR PT.
--- NOTE | 2018-11-22 10:15 | NUR ---
RT NOTE: PT STATED THAT HE WAS GETTING TIRED AND WANTED TO BE TAKEN OFF OF SPEAKING VALVE. PT WAS PACED BACK ON TRACH COLLAR 8LPM 30% WILL CONTINUE TO MONITOR PT.
[2018-11-22] MEDS: APIXABAN 5 MG TAB PO SCH ×2 (10:22→23:08)
[2018-11-22] MEDS: FAMOTIDINE (10MG/ML) 2ML VL IV SCH ×2 (10:22→23:08)
[2018-11-22] MEDS: SERTRALINE HCL 50 MG TAB PO SCH (10:22)
[2018-11-22] MEDS: MULTIPLE VITAMINS W/ MINERALS TAB PO SCH (10:22)
[2018-11-22] MEDS: LEVOFLOXACIN 750MG 150 ML IV SCH (10:22)
[2018-11-22] MEDS: METOPROLOL TARTRATE 25 MG TAB PO SCH ×2 (10:22→23:08)
--- NOTE | 2018-11-22 10:40 | NUR ---
PHYSICAL THERAPY AT BEDSIDE TO ASSESS PATIENT AND DISCUSS PLAN OF CARE. PATIENT UP IN CHAIR AT THIS TIME.
[2018-11-22] MEDS: NYSTATIN (MOUTH-THROAT) 500,000 UNITS/5 ML SUSP MT SCH ×3 (12:10→23:08)
[2018-11-22] MEDS: HYDROcodone-ACET 5/325MG TAB PO PRN ×2 (12:11→16:53)
--- NOTE | 2018-11-22 13:41 | NUR ---
PATIENT ASSISTED BACK TO BED BY PHYSICAL THERAPY. PATIENT TOLERATED WELL. WILL CONTINUE TO MONITOR.
--- NOTE | 2018-11-22 14:10 | NUR ---
RT NOTE: PT WAS PLACED ON SPEAKING VALVE AT THIS TIME. CUFF DEFLATED. PT TOLERATING WELL PT HAS A 4 LPM NC. AT 1613 PT WAS TAKEN OFF OF SPEAKING VALVE AND PLACED BACK ON THE TRACH COLLAR. PT STATED THAT HE IS DOING GOOD. RN MADE AWARE WILL CONTINUE TO MONITOR PT.
--- NOTE | 2018-11-22 14:37 | NUR ---
DR CAMPA AT BEDSIDE TO ASSESS PATIENT AND DISCUSS PLAN OF CARE WITH PATIENT AND FAMILY. MD INFORMED OF PATIENTS RESPIRATORY STATUS. SPOKE WITH MARIA FERNANDA VIA TELEPHONE.
--- NOTE | 2018-11-22 20:40 | NUR ---
PT. HAD LOOSE BM-LIQUID, BROWN, MODERATE STOOL; BENEDICT-CARE PROVIDED AND CHANGED CHUX; PT. TOLERATED WELL.
[2018-11-22] MEDS: INSULIN LANTUS (GLARGINE) 1 /0.01ml (100units/ml) SC SCH (23:09)
--- NOTE | 2018-11-22 23:10 | NUR ---
PT. HAD LOOSE BM-LIQUID, BROWN, MODERATE STOOL; BENEDICT-CARE PROVIDED AND PARTIAL LINEN CHANGE; PT. USED URINAL AND HAD 225ML URINE OUTPUT.
[2018-11-23] VITALS (12 sets, daily range): BP systolic 101–151; BP diastolic 46–73
--- NOTE | 2018-11-23 03:30 | NUR ---
PT. HAD LOOSE BM-LIQUID, BROWN, MODERATE STOOL; BENEDICT-CARE PROVIDED AND CHUX CHANGED; PT. USED URINAL AND HAD 200ML URINE OUTPUT.
--- NOTE | 2018-11-23 05:00 | NUR ---
PT. HAD LOOSE BM-LIQUID, BROWN, MODERATE STOOL; COMPLETE LINEN CHANGE; BENEDICT-CARE PROVIDED WITH CHG WIPE BATH; PT. USED URINAL AND HAD 275ML URINE OUTPUT.
[2018-11-23] MEDS: PIPERACILLIN-TAZOB 3.375GM 100 ML IV SCH ×4 (06:30→18:14)
[2018-11-23] MEDS: NYSTATIN (MOUTH-THROAT) 500,000 UNITS/5 ML SUSP MT SCH ×4 (06:30→22:39)
[2018-11-23] MEDS: GABAPENTIN 300 MG CAP PO SCH ×3 (06:30→22:41)
[2018-11-23] MEDS: InsuLIN REG 1unit/0.01ml Soln (100units/ml) SC SCH ×4 (06:47→22:41)
[2018-11-23] MEDS: ACCU-CHEK COMFORT CURVE STRIP VI SCH ×4 (06:47→22:41)
[2018-11-23] MEDS: INSULIN LANTUS (GLARGINE) 1 /0.01ml (100units/ml) SC SCH ×2 (06:48→22:41)
[2018-11-23] MEDS: ALBUTEROL SULF 2.5 MG/0.5ML(0.5%) NEB SOLN NEB SCH ×5 (07:00→21:48)
[2018-11-23] MEDS: IPRATROPIUM BROM 0.5 MG/2.5ML INH SOL NEB SCH ×5 (07:00→21:48)
--- NOTE | 2018-11-23 07:25 | NUR ---
REPORT RECEIVED FROM CIVIL ENGINEERING ASSISTANT NURSE. PATIENT RESTING IN BED AT THIS TIME. RESPIRATIONS EVEN AND UNLABORED. NO SIGNS OF ACUTE DISTRESS NOTED. CALL LIGHT IN REACH, BED IN LOW POSITION. WILL CONTINUE TO MONITOR.
[2018-11-23] MEDS: MORPHINE SULF INJ 2 MG/ML SYRINGE 1ML IV PRN ×3 (07:47→18:25)
[2018-11-23] MEDS: Glucerna 1.2 Cal 1Liter BOTTLE GT SCH (08:08)
[2018-11-23] MEDS: MULTIPLE VITAMINS W/ MINERALS TAB PO SCH (09:52)
[2018-11-23] MEDS: FAMOTIDINE (10MG/ML) 2ML VL IV SCH ×2 (09:52→22:39)
[2018-11-23] MEDS: SERTRALINE HCL 50 MG TAB PO SCH (09:52)
[2018-11-23] MEDS: APIXABAN 5 MG TAB PO SCH ×2 (09:52→22:39)
[2018-11-23] MEDS: LEVOFLOXACIN 750MG 150 ML IV SCH (09:52)
[2018-11-23] MEDS: METOPROLOL TARTRATE 25 MG TAB PO SCH ×2 (09:52→22:40)
[2018-11-23] MEDS: HYDROcodone-ACET 5/325MG TAB PO PRN ×2 (10:09→14:46)
--- NOTE | 2018-11-23 11:22 | NUR ---
Nutrition Follow-up Notes Wt.: 52.5 kg Pt's room curtain's closed, RN at bedside during rounds earlier. Pt's on Trach collar remains NPO, currently on EN support with Glucerna 1.2 Eddie @ 60 ml/hr via PEG tube providing 1728 kcal, 86 gms protein and 966 ml free water, tolerates feeding, had 10 ml residuals noted by RN this morning. Pt with adequate EN support d/t mod initiation rate delivery of concentrated formula aeb current EN infusion meets 76 to 92% of est caloric needs and 81 to 114% of est protein needs. Est. Needs IBW (75 kg): 6253-4832 kcal (25-30 kcal/kgIBW), 75-105 gms pro (1.0-1.4 gms/kgIBW d/t severe hypoalbuminemia, CA). Will continue to monitor pertinent labs and reassess nutrient need prn Labs: GLU 209 H. rest lab wnl Skin: Atilio scale 15, mod risk, pt's pressure ulcer on right heel and medial sacrum per cork molder. Pls refer to latest inspector aide's notes for further details re: tx plans. GI: Pt had 4 BM today diarr per cork molder. PES: Altered nutrition related lab values r/t current/chronic medical condition aeb mod hypoalb hyperglycemia Increased nutrient needs r.t chronic medical condition aeb pt's CA, severe underwt, EN support via PEG and NPO Will continue to monitor NPO status, EN tolerance, skin status, pertinent labs and weight trend. F/u in 2 to 3 days. Rec.: 1.) Consider gradual increase on feeding rate of Glucerna 1.2 Eddie to 70 ml/hr goal rate as tolerated if medically appropriate. 2.) If Albumin continues trending down, consider Prostat 1 pkt BID. 3.) Consider daily MVI with minerals and Asc acid 500 mgs BID. 4.) Refer pt to CDE/RD for further nutrition education and weight monitoring upon discharge. 5.) Continue current plan of care.
[2018-11-23] MEDS ORDERED: MORPHINE SULFATE 4 MG/ML SYR/VIAL ONE (11:30)
--- NOTE | 2018-11-23 14:00 | NUR ---
DR CAMPA AT BEDSIDE TO ASSESS PATIENT AND DISCUSS PLAN OF CARE.
[2018-11-23] MEDS ORDERED: metroNIDAZOLE 500 MG TAB PO ONE (14:15)
[2018-11-23 15:40] LABS: Hemoglobin 8.5 g/dL (13.5-17.5)
[2018-11-23 15:42] LABS: Hematocrit 26.6 % (41.0-53.0); Mean Corpuscular Hemoglobin 29.2 pg (28.0-32.0); Mean Corpuscular Volume 91.1 fL (80.0-100.0); Red Blood Cells 2.92 10^6/uL (4.5-5.90); Red Cell Distribution Width 17.1 % (11.8-14.3)
[2018-11-23 17:08] LABS: White Blood Cell 30.3 10^3/uL (4.4-10.8)
[2018-11-23 17:09] LABS: Basophils % (manual) 0 (0.0-2.0); Blast Cells 0; Metamyelocytes % 0; Myelocytes % 0; Promyelocytes % 0
[2018-11-23 17:28] LABS: Band Neutrophils % (manual) 2; Eosinophils % (manual) 1 (0-7); Lymphocytes % (manual) 2 (10.0-50.0); Monocytes % (manual) 6 (0-12); Reactive Lymphocytes 1
[2018-11-23 17:32] LABS: Platelet Count (auto) 468 10^3/uL (140-450)
--- NOTE | 2018-11-23 20:50 | NUR ---
PT. HAD LOOSE BM-BROWN, LIQUID, MODERATE STOOL; BENEDICT-CARE PROVIDED; CHUX CHANGED; SACRAL DRSG CHANGED; PT. REPOSITIONED FOR COMFORT; SUCTIONED PT. AND HAD THICK, CREAMY/WHITE SECRETIONS; WILL CONT. TO MONITOR PT.
[2018-11-23] MEDS: metroNIDAZOLE 500 MG TAB PO SCH (22:39)
[2018-11-24] VITALS (17 sets, daily range): BP systolic 94–157; BP diastolic 34–63
[2018-11-24] MEDS: PIPERACILLIN-TAZOB 3.375GM 100 ML IV SCH ×5 (00:40→23:47)
--- NOTE | 2018-11-24 02:12 | NUR ---
PT. HAD LOOSE BM-LIQUID, BROWN, MODERATE STOOL; BENEDICT-CARE PROVIDED.
[2018-11-24] MEDS: NYSTATIN (MOUTH-THROAT) 500,000 UNITS/5 ML SUSP MT SCH ×4 (06:00→22:33)
[2018-11-24 06:19] LABS: Hematocrit 26.6 % (41.0-53.0); Hemoglobin 8.7 g/dL (13.5-17.5); Mean Corpuscular Hemoglobin 29.3 pg (28.0-32.0); Mean Corpuscular Hgb Conc. 32.5 g/dL (32.0-36.0); Mean Corpuscular Volume 90.2 fL (80.0-100.0); Platelet Count (auto) 492 10^3/uL (140-450); Red Blood Cells 2.95 10^6/uL (4.5-5.90); Red Cell Distribution Width 16.5 % (11.8-14.3)
[2018-11-24] MEDS: ALBUTEROL SULF 2.5 MG/0.5ML(0.5%) NEB SOLN NEB SCH ×5 (06:19→21:55)
[2018-11-24] MEDS: IPRATROPIUM BROM 0.5 MG/2.5ML INH SOL NEB SCH ×5 (06:19→21:55)
[2018-11-24] MEDS: GABAPENTIN 300 MG CAP PO SCH ×3 (06:20→21:15)
[2018-11-24] MEDS: metroNIDAZOLE 500 MG TAB PO SCH ×3 (06:20→22:23)
[2018-11-24] MEDS: ACCU-CHEK COMFORT CURVE STRIP VI SCH ×4 (06:20→23:47)
[2018-11-24] MEDS: InsuLIN REG 1unit/0.01ml Soln (100units/ml) SC SCH ×4 (06:21→23:47)
[2018-11-24 06:22] LABS: White Blood Cell 34.7 10^3/uL (4.4-10.8)
[2018-11-24 06:23] LABS: Basophils % (manual) 0 (0.0-2.0); Blast Cells 0; Metamyelocytes % 0; Myelocytes % 0; Promyelocytes % 0; Reactive Lymphocytes 0
[2018-11-24] MEDS: INSULIN LANTUS (GLARGINE) 1 /0.01ml (100units/ml) SC SCH ×2 (06:23→22:30)
[2018-11-24 06:30] LABS: Albumin 2.3 g/dL (3.4-5.0); BUN/Creatinine Ratio 43.2; Calcium 8.6 mg/dL (8.5-10.1); Potassium 3.8 mmol/L (3.5-5.1)
[2018-11-24 06:33] LABS: Bilirubin, Total 0.2 mg/dL (0.2-1.0); Total Protein 6.4 g/dL (6.4-8.2)
--- NOTE | 2018-11-24 07:00 | NUR ---
Opening Shift Report: Report received from Shivani WATTS. Patient required continuous suctioning throughout the day. Patsy-care performed for diarrhea stools. See Interventions for physical assessment.
[2018-11-24 07:38] LABS: Band Neutrophils % (manual) 5; Eosinophils % (manual) 1 (0-7); Lymphocytes % (manual) 2 (10.0-50.0); Monocytes % (manual) 4 (0-12)
[2018-11-24] MEDS: MORPHINE SULF INJ 2 MG/ML SYRINGE 1ML IV PRN ×2 (11:02→20:06)
[2018-11-24] MEDS: APIXABAN 5 MG TAB PO SCH ×2 (11:05→22:26)
[2018-11-24] MEDS: MULTIPLE VITAMINS W/ MINERALS TAB PO SCH (11:06)
[2018-11-24] MEDS: METOPROLOL TARTRATE 25 MG TAB PO SCH ×3 (11:06→22:26)
[2018-11-24] MEDS: SERTRALINE HCL 50 MG TAB PO SCH (11:07)
[2018-11-24] MEDS: FAMOTIDINE (10MG/ML) 2ML VL IV SCH ×2 (11:15→22:22)
[2018-11-24] MEDS: LEVOFLOXACIN 750MG 150 ML IV SCH (11:16)
[2018-11-24] MEDS: FLORASTOR (S. BOULARDII) 250 MG CAP PO SCH (11:16)
[2018-11-24] MEDS: HYDROcodone-ACET 5/325MG TAB PO PRN ×2 (12:00→18:12)
--- NOTE | 2018-11-24 12:00 | NUR ---
at bedside since the morning.
--- NOTE | 2018-11-24 13:00 | NUR ---
Respiratory note: REPLACED WATER FOR COOL AEROSOL, AND DRAINED RESERVOIR. PT PLACED BACK ON TRECH COLOR 8LPM, 40% FIO2
[2018-11-24] MEDS ORDERED: AMIKACIN 0 ML IV SCH (13:30)
[2018-11-24] MEDS: AMIKACIN IV SCH (15:42)
[2018-11-24] MEDS: SODIUM CHL 0.9% IV SCH (15:42)
--- NOTE | 2018-11-24 16:40 | NUR ---
Respiratory note: PT RECEIVED TRECH CARE FROM STEFANIE SARAVIA. DRESSING APPEARED CLEAN, AND DRY. NO REDNESS, OR IRRITATION AT STOMA SITE. BACK UP TRECH AT BEDSIDE.
--- NOTE | 2018-11-24 17:37 | NUR ---
PRN Continuous suctioning performed throughout the day as needed. Received thick white/yellowish secretions.
--- NOTE | 2018-11-24 17:38 | NUR ---
Dr. Cruz at bedside.
--- NOTE | 2018-11-24 18:15 | NUR ---
Respiratory note: AT BEDSIDE DISCUSSING NEW CPAP ORDERS WITH PT AND RN. PT SHOOK HIS HEAD NO SEVERAL TIMES AND MOUTHED THAT HE DOES NOT WANT TO BE PLACED BACK ON THE VENT. WILL CONTINUE TO MONITOR.
--- NOTE | 2018-11-24 19:26 | NUR ---
Endorsed care to Soila
--- NOTE | 2018-11-24 19:38 | NUR ---
During day shift patient had five loose stools, tony-care was given every time.
--- NOTE | 2018-11-24 19:45 | NUR ---
ELIMINATION Patient was placed on bedpan Had moderate amount loose brownish stool Cleaned, z-guard applied, chux changed Repositioned
--- NOTE | 2018-11-24 19:45 | NUR ---
OPEN NOTES Assumed care of patient. Report received from STEFANIE Givens Patient is awake, alert and oriented. Able to move all limbs but still weak. Able to turn to sides. With complains of pain on the right leg - will medicate. VS stable. With tracheostomy size 8.0 to trach mask 40% oxygen. Suctioned trach PRN. Lung sounds coarse. Propped up. Patient is on specialty air mattress bed. Patient having bowel movements through bed merrill and urinates in the urinal with minimal assistance. will continue to monitor PRN
[2018-11-24] MEDS: Glucerna 1.2 Cal 1Liter BOTTLE GT SCH (22:28)
[2018-11-25] VITALS (23 sets, daily range): BP systolic 106–142; BP diastolic 36–74
[2018-11-25] MEDS: HYDROcodone-ACET 5/325MG TAB PO PRN ×2 (00:06→10:22)
--- NOTE | 2018-11-25 00:20 | NUR ---
ELIMINATION Patient was placed on bedpan Had moderate amount loose brownish stool Cleaned, z-guard applied, chux changed
[2018-11-25] MEDS: MORPHINE SULF INJ 2 MG/ML SYRINGE 1ML IV PRN ×3 (03:48→21:46)
--- NOTE | 2018-11-25 03:50 | NUR ---
ELIMINATION Patient was placed on bedpan Had moderate amount loose brownish stool Cleaned, z-guard applied
[2018-11-25 04:53] LABS: Hematocrit 27.1 % (41.0-53.0); Hemoglobin 8.8 g/dL (13.5-17.5)
[2018-11-25 05:04] LABS: Mean Corpuscular Hemoglobin 29.1 pg (28.0-32.0); Mean Corpuscular Hgb Conc. 32.4 g/dL (32.0-36.0); Mean Corpuscular Volume 89.7 fL (80.0-100.0); Platelet Count (auto) 568 10^3/uL (140-450); Red Blood Cells 3.02 10^6/uL (4.5-5.90); Red Cell Distribution Width 16.4 % (11.8-14.3); White Blood Cell 27.6 10^3/uL (4.4-10.8)
[2018-11-25 05:07] LABS: Albumin 2.2 g/dL (3.4-5.0); BUN/Creatinine Ratio 38.2; Calcium 8.6 mg/dL (8.5-10.1); Potassium 3.9 mmol/L (3.5-5.1)
[2018-11-25 05:10] LABS: Bilirubin, Total 0.2 mg/dL (0.2-1.0); Total Protein 6.4 g/dL (6.4-8.2)
[2018-11-25 05:25] LABS: Basophils % (manual) 0 (0.0-2.0); Blast Cells 0; Eosinophils % (manual) 0 (0-7); Metamyelocytes % 0; Myelocytes % 0; Promyelocytes % 0; Reactive Lymphocytes 0
[2018-11-25] MEDS: IPRATROPIUM BROM 0.5 MG/2.5ML INH SOL NEB SCH ×5 (06:07→21:58)
[2018-11-25] MEDS: ALBUTEROL SULF 2.5 MG/0.5ML(0.5%) NEB SOLN NEB SCH ×5 (06:07→21:58)
[2018-11-25] MEDS: ACCU-CHEK COMFORT CURVE STRIP VI SCH ×3 (06:12→18:46)
[2018-11-25] MEDS: PIPERACILLIN-TAZOB 3.375GM 100 ML IV SCH ×3 (06:18→18:46)
[2018-11-25] MEDS: InsuLIN REG 1unit/0.01ml Soln (100units/ml) SC SCH ×3 (06:22→18:49)
[2018-11-25] MEDS: INSULIN LANTUS (GLARGINE) 1 /0.01ml (100units/ml) SC SCH ×2 (06:23→22:02)
[2018-11-25 06:24] LABS: Band Neutrophils % (manual) 3; Lymphocytes % (manual) 8 (10.0-50.0); Monocytes % (manual) 4 (0-12)
[2018-11-25] MEDS: GABAPENTIN 300 MG CAP PO SCH ×3 (06:25→22:02)
[2018-11-25] MEDS: metroNIDAZOLE 500 MG TAB PO SCH (06:25)
[2018-11-25] MEDS: NYSTATIN (MOUTH-THROAT) 500,000 UNITS/5 ML SUSP MT SCH ×4 (06:25→22:01)
--- NOTE | 2018-11-25 07:20 | NUR ---
REPORT REPORT GIVEN TO STEFANIE CID INFORMED THAT PATIENT DOES NOT WANT SPONGING YET,PREVIOUS CHEST TUBE DRESSING SITE -NOT CHANGED YET PATIENT WANTS TO SLEEP AND FEELS COLD. LATEST TEMP 98.2F
--- NOTE | 2018-11-25 07:30 | NUR ---
REPORT: REPORT RECEIVED FROM AMUSEMENT CENTRE MANAGER RN TO RESUME CARE OF PT.
--- NOTE | 2018-11-25 08:00 | NUR ---
OPEN: ASSESSMENT COMPLETE. SEE NURSING FLOW SHEET FOR UPDATED DETAILS. PT IS ALERT AND ORIENTED X4, OBEYS COMMANDS, ABLE TO SHAKE HEAD YES OR NO APPROPRIATELY, APHASIC WITH TRACHEOSTOMY IN PLACE, MOUTHING WORDS AND ABLE TO COMMUNICATE. TRACH IN PLACE, #8 SHILEY WITH TRACH COLLAR WITH 35% FIO2. 3LUMEN PICC LINE TO RIGHT UPPER ARM RUNNING .9NS AT TKO. NO OLIVO IN PLACE PATIENT USES URINAL. ABLE TO USE CALL LIGHT WHEN NEEDED. CONTINENT WITH USE OF BEDPAN. ON SPECIALTY MATTRESS. ALL MONITORS HOOKED UP TO PT FOR CONTINUOUS MONITORING. SHARED POC WITH PT AND ABLE TO VERBALIZE UNDERSTANDING FOR SHIFT.
--- NOTE | 2018-11-25 08:30 | NUR ---
ELIMINATION/SKIN CARE: PT PLACED ONTO BEDPAN. BEDPAN GIVEN FOR DIARRHEA AND URINAL FOR URINE. AFTER ELIMINATION, SKIN CARE, LINEN CHANGE AND BENEDICT-CARE GIVEN. PT ABLE TO ASSIST WITH TURNING IN BED. TOLERATED WELL.
[2018-11-25] MEDS: METOPROLOL TARTRATE 25 MG TAB PO SCH ×2 (10:21→22:02)
[2018-11-25] MEDS: APIXABAN 5 MG TAB PO SCH ×2 (10:21→22:01)
[2018-11-25] MEDS: FLORASTOR (S. BOULARDII) 250 MG CAP PO SCH (10:21)
[2018-11-25] MEDS: SERTRALINE HCL 50 MG TAB PO SCH (10:21)
[2018-11-25] MEDS: MULTIPLE VITAMINS W/ MINERALS TAB PO SCH (10:22)
[2018-11-25] MEDS: FAMOTIDINE (10MG/ML) 2ML VL IV SCH ×2 (10:22→22:01)
--- NOTE | 2018-11-25 10:50 | NUR ---
FAMILY: FAMILY IN AT BEDSIDE. UPDATED ON PT STATUS AND ALL QUESTIONS AND CONCERNS ADDRESSED.
--- NOTE | 2018-11-25 11:25 | NUR ---
PHYSICAL THERAPY: PHYSICAL THERAPY IN AT BEDSIDE. UPDATED ON PT FULL STATUS AND AWARE OF ALL FINDINGS. AWARE THAT PATIENT REFUSING TO GET OUT OF BED AT TIME AND NOT WANTING AMBULATE TODAY. FAMILY PRESENT AND AWARE. EDUCATED PATIENT IN DETAIL ABOUT NEED FOR PHYSICAL THERAPY, ASSISTANCE FOR DEEP BREATHING AND GAINING MUSCLE MASS. DESPITE ALL EDUCATION GIVEN, PATIENT STILL REFUSING AT TIME. PHYSICAL THERAPY WORKING WITH PATIENT IN BED FOR RANGE OF MOTION AND RESISTANCE BANDS.
--- NOTE | 2018-11-25 11:42 | NUR ---
Nutrition Follow-up Notes Wt.: 52.6 kg Pt's room curtain's closed, RN at bedside during rounds earlier. Pt's on Trach collar remains NPO, currently on EN support with Glucerna 1.2 Eddie @ 60 ml/hr via PEG tube providing 1728 kcal, 86 gms protein and 966 ml free water, tolerates feeding, had 10 ml residuals noted by RN this morning. Pt with adequate EN support d/t mod initiation rate delivery of concentrated formula aeb current EN infusion meets 76 to 92% of est caloric needs and 81 to 114% of est protein needs. Est. Needs IBW (75 kg): 2189-6118 kcal (25-30 kcal/kgIBW), 75-105 gms pro (1.0-1.4 gms/kgIBW d/t severe hypoalbuminemia, CA). Will continue to monitor pertinent labs and reassess nutrient need prn Labs: GLU 123 H, ALP 297 H, ALB 2.2 L Skin: Atilio scale 16, mod risk, pt's pressure ulcer on right heel and medial sacrum per documentation spec. Pls refer to latest molecular physicist's notes for further details re: tx plans. GI: Pt had 3 BM today per documentation spec. PES: Altered nutrition related lab values r/t current/chronic medical condition aeb mod hypoalb hyperglycemia Increased nutrient needs r.t chronic medical condition aeb pt's CA, severe underwt, EN support via PEG and NPO Will continue to monitor NPO status, EN tolerance, skin status, pertinent labs and weight trend. F/u in 2 to 3 days. Rec.: 1.) Consider gradual increase on feeding rate of Glucerna 1.2 Eddie to 70 ml/hr goal rate as tolerated if medically appropriate. 2.) If Albumin continues trending down, consider Prostat 1 pkt BID. 3.) Consider daily MVI with minerals and Asc acid 500 mgs BID. 4.) Refer pt to CDE/RD for further nutrition education and weight monitoring upon discharge. 5.) Continue current plan of care.
--- NOTE | 2018-11-25 13:06 | NUR ---
MD VISIT: DR. ALVARENGA IN AT BEDSIDE. SPOKE TO AT BEDSIDE AND FULLY UPDATED ON PT STATUS. PLAN TO CARRY OUT ORDERS.
--- NOTE | 2018-11-25 14:45 | NUR ---
ORDER REVIEWED FOR SPEAKING VALVE DURING THE DAY TOLERATED. DEEP TRACHEAL SUCTIONED X 2 FOR MODERATE MORALEZ THIN RETURN. PT HAVING BRONCHOSPASM AND PAIN WITH COUGHING THAT RADIATES TO RIGHT LEG. WILL ATTEMPT SPEAKING VALVE AGAIN WHEN PT IS CALM AND ABLE TO DO SO.
--- NOTE | 2018-11-25 14:45 | NUR ---
SPEAKING VALVE: SPOKE TO PATIENT ABOUT USE OF SPEAKING VALVE DURING DAY PER MD ORDERS. PATIENT WOULD LIKE TO TRY SPEAKING VALVE TODAY. RT NOTIFIED AND AWARE. RT PLACED SPEAKING VALVE, HOWEVER, AFTER PLACEMENT, PATIENT HAVING PAIN AND "HARD TIME BREATHING". REMOVED VALVE BY RT AND INSTRUCTED PATIENT THAT WE WOULD TRY AGAIN.
[2018-11-25] MEDS: AMIKACIN IV SCH (14:53)
[2018-11-25] MEDS: SODIUM CHL 0.9% IV SCH (14:53)
--- NOTE | 2018-11-25 14:59 | NUR ---
PAIN: PATIENT MEDICATED FOR PAIN. PATIENT STATING THAT HE IS HAVING SEVERE PAIN IN RIGHT LOWER LEG AND DISCOMFORT WITH COUGHING. WILL CONTINUE TO MONITOR.
--- NOTE | 2018-11-25 15:30 | NUR ---
SPEAKING VALVE: PT REFUSING TO USE SPEAKING VALVE AT TIME.
--- NOTE | 2018-11-25 18:50 | NUR ---
CLOSING NOTE: PT REMAINS ALERT AND ORIENTED X4, OBEYS COMMANDS, ABLE TO SHAKE HEAD YES OR NO APPROPRIATELY, APHASIC WITH TRACHEOSTOMY IN PLACE, MOUTHING WORDS AND ABLE TO COMMUNICATE. TRACH IN PLACE, #8 SHILEY WITH TRACH COLLAR WITH 35% FIO2. 3LUMEN PICC LINE TO RIGHT UPPER ARM RUNNING .9NS AT TKO. NO OLIVO IN PLACE PATIENT USES URINAL. ABLE TO USE CALL LIGHT WHEN NEEDED. CONTINENT WITH USE OF BEDPAN. ON SPECIALTY MATTRESS. ALL MONITORS HOOKED UP TO PT FOR CONTINUOUS MONITORING. SHARED POC WITH PT AND ABLE TO VERBALIZE UNDERSTANDING FOR SHIFT. AWARE THAT SHIFT CHANGE WILL BE TAKING PLACE.
--- NOTE | 2018-11-25 19:30 | NUR ---
REPORT: REPORT GIVEN TO ADMITTING OFFICE ESCORT RN TO RESUME CARE OF PT.
[2018-11-25] MEDS: Glucerna 1.2 Cal 1Liter BOTTLE GT SCH (22:04)
[2018-11-26] VITALS (15 sets, daily range): BP systolic 111–146; BP diastolic 45–70
[2018-11-26] MEDS: ACCU-CHEK COMFORT CURVE STRIP VI SCH ×5 (00:14→23:55)
[2018-11-26] MEDS: InsuLIN REG 1unit/0.01ml Soln (100units/ml) SC SCH ×5 (00:14→23:55)
[2018-11-26] MEDS: PIPERACILLIN-TAZOB 3.375GM 100 ML IV SCH ×3 (00:15→11:31)
[2018-11-26] MEDS: NYSTATIN (MOUTH-THROAT) 500,000 UNITS/5 ML SUSP MT SCH ×4 (05:25→21:50)
[2018-11-26] MEDS: GABAPENTIN 300 MG CAP PO SCH ×3 (05:25→21:50)
[2018-11-26] MEDS: INSULIN LANTUS (GLARGINE) 1 /0.01ml (100units/ml) SC SCH ×2 (05:26→21:51)
[2018-11-26] MEDS: ALBUTEROL SULF 2.5 MG/0.5ML(0.5%) NEB SOLN NEB SCH ×5 (06:18→22:21)
[2018-11-26] MEDS: IPRATROPIUM BROM 0.5 MG/2.5ML INH SOL NEB SCH ×5 (06:18→22:21)
--- NOTE | 2018-11-26 07:30 | NUR ---
Opening Shift Note Assumed care of patient, laying in bed with eyes closed, arousable and opens eyes to voice. No S/S of distress/SOB or pain. Patient on trache size 8 shiley, with 10LPM oxygen, 35% FIO2 via trache collar, saturation 99%. Patient able to communicate and make needs known by nodding head yes or no or mouthing words. Glucerna 60ml running via PEG, patient tolerated well, 5 ml residual feeding noted. See interventions for complete assessment. Patient on specialty mattress, bed locked on low position, side rails up x2, bed alarms on at all times, call mcginnis within reach, instructed on POC and to call for assist PRN, will continue to monitor for changes Q1hr and PRN.
[2018-11-26] MEDS: FLORASTOR (S. BOULARDII) 250 MG CAP PO SCH (09:10)
[2018-11-26] MEDS: FAMOTIDINE (10MG/ML) 2ML VL IV SCH ×2 (09:11→21:50)
[2018-11-26] MEDS: APIXABAN 5 MG TAB PO SCH ×2 (09:11→21:50)
[2018-11-26] MEDS: SERTRALINE HCL 50 MG TAB PO SCH (09:12)
[2018-11-26] MEDS: MULTIPLE VITAMINS W/ MINERALS TAB PO SCH (09:12)
[2018-11-26] MEDS: METOPROLOL TARTRATE 25 MG TAB PO SCH ×2 (09:12→21:50)
--- NOTE | 2018-11-26 09:15 | NUR ---
Deep tracheal suctioning done, able to suction white to creamy secretions moderate in amount. Patient tolerated well.
[2018-11-26 09:38] LABS: Mean Corpuscular Volume 89.3 fL (80.0-100.0)
[2018-11-26 09:39] LABS: Hematocrit 27.1 % (41.0-53.0); Mean Corpuscular Hemoglobin 29.7 pg (28.0-32.0); Mean Corpuscular Hgb Conc. 33.2 g/dL (32.0-36.0); Platelet Count (auto) 585 10^3/uL (140-450); Red Blood Cells 3.03 10^6/uL (4.5-5.90); Red Cell Distribution Width 16.9 % (11.8-14.3); White Blood Cell 23.2 10^3/uL (4.4-10.8)
[2018-11-26 09:41] LABS: Basophils % (manual) 0 (0.0-2.0); Blast Cells 0; Myelocytes % 0; Promyelocytes % 0; Reactive Lymphocytes 0
[2018-11-26 09:55] LABS: Albumin 2.3 g/dL (3.4-5.0); BUN/Creatinine Ratio 30.2; Calcium 8.6 mg/dL (8.5-10.1); Potassium 3.9 mmol/L (3.5-5.1)
[2018-11-26 09:58] LABS: Bilirubin, Total 0.2 mg/dL (0.2-1.0); Total Protein 6.3 g/dL (6.4-8.2)
--- NOTE | 2018-11-26 10:00 | NUR ---
Patient's Susi at bedside, updated on patient's status and POC, verbalized understanding. All questions and concerns addressed.
--- NOTE | 2018-11-26 10:05 | NUR ---
Patient had watery bowel movement, perineal care rendered. Skin integrity assessed for any changes. Linens changed. Sacral optifoam dressing changed. Patient repositioned for comfort.
[2018-11-26 10:29] LABS: Band Neutrophils % (manual) 2; Eosinophils % (manual) 3 (0-7); Lymphocytes % (manual) 4 (10.0-50.0); Metamyelocytes % 3; Monocytes % (manual) 6 (0-12)
--- NOTE | 2018-11-26 10:50 | NUR ---
Patient out of bed to bedside chair with Mickey PT, fall precautions in place. Patient tolerated well. Will continue to monitor. Susi at bedside.
[2018-11-26] MEDS: HYDROcodone-ACET 5/325MG TAB PO PRN ×3 (11:31→23:46)
--- NOTE | 2018-11-26 11:50 | NUR ---
Dr Duarte at bedside, updated on patient's status. Patient seen and examined. Will carry out new orders.
[2018-11-26] MEDS ORDERED: TOBRAMYCIN 300 MG/5 ML NEB SOLN NEB ONE (12:00)
--- NOTE | 2018-11-26 12:00 | NUR ---
Patient back to bed from bedside chair with Mickey PT, fall precautions in placed. Patient tolerated well.
--- NOTE | 2018-11-26 12:15 | NUR ---
Deep tracheal suctioning done, suctioned white to creamy secretions moderate amount, patient tolerated well.
[2018-11-26] MEDS: MORPHINE SULF INJ 2 MG/ML SYRINGE 1ML IV PRN (12:26)
--- NOTE | 2018-11-26 14:30 | NUR ---
Patient had watery stool, perianal care rendered. Skin integrity assessed for any changes. Linens changed. Patient repositioned for comfort.
[2018-11-26] MEDS: SODIUM CHL 0.9% IV SCH (14:55)
[2018-11-26] MEDS: AMIKACIN IV SCH (14:55)
--- NOTE | 2018-11-26 16:00 | NUR ---
Patient out of bed to bedside chair with Mickey PT, fall precautions in placed, patient tolerated well.
--- NOTE | 2018-11-26 16:13 | NUR ---
Received call from [facility] informing this RN that patient has been getting Zosyn for the past ten days and is suggesting to switch antibiotics to Cefipime. Paged Dr Duarte and called back, informed of pharmacist suggestion to switch Zosyn to Cefipime, verbalized understanding and agreed to discontinue Zosyn and start patient on Cefipime. [facility] informed.
--- NOTE | 2018-11-26 16:55 | NUR ---
Patient back to bed from bedside chair with Mickey PT, fall precaution in placed. Patient tolerated well.
--- NOTE | 2018-11-26 19:00 | NUR ---
OPENING NOTE ASSUMED CARE OF PATIENT AT THIS TIME. REPORT RECEIVED FROM DAY SHIFT RN. POC REVIEWED WITH PT. HEAD TO TOE ASSESSMENT COMPLETE, SEE INTERVENTION SPREADSHEET FOR COMPLETE DETAILS. RECEIVED PT ALERT AND ORIENTED X4. NO S/S OF DISTRESS NOTED. RECEIVED PT WITH PEG TUBE WITH TF AT 60 MLS. PT TOLERATING TF. 5 MLS RESIDUALS ASPIRATED. IV SITE BENIGN. RECEIVED PT WITH TRACH AND TRACH COLLAR. VSS. RECEIVED PT ON SPECIALTY BED. BONY PROMINENCES OFF LOADED. BED LOCKED AND IN LOWEST POSITION, SAFETY PRECAUTIONS IN PLACE. WILL MONITOR PT CAREFULLY.
--- NOTE | 2018-11-26 19:50 | NUR ---
received pt on bed merrill Pt had small liquid bm with some formed bm. Pt cleaned, skin/tony care rendered. Pt tolerated well.
[2018-11-26] MEDS: CEFEPIME 2 GM in SODIUM CHL 0.9% 50 ML IV SCH (21:50)
[2018-11-26] MEDS: TOBRAMYCIN 300 MG/5 ML NEB SOLN NEB SCH (22:33)
[2018-11-27] VITALS (24 sets, daily range): BP systolic 101–149; BP diastolic 41–74
--- NOTE | 2018-11-27 00:56 | NUR ---
elimination PT PLACED ON BED AVILA. PT HAD MODERATE LIQUID STOOL. PT CLEANED. BENEDICT CARE PROVIDED. PT TOLERATED WELL.
--- NOTE | 2018-11-27 01:25 | NUR ---
TRACHEAL SUCTION PT REQUIRES TRACHEAL SUCTION EVERY FEW HOURS. PT TOLERATES WELL.
--- NOTE | 2018-11-27 04:07 | NUR ---
bed bath/linen change Pt given complete bed bath with linen change. Pt tolerated well. Suction tubing and canister changed at this time. Oral care provided. Safety precautions maintained.
--- NOTE | 2018-11-27 04:07 | NUR ---
elimination PT PLACED ON BED AVILA. PT HAD MODERATE LIQUID STOOL. PT CLEANED. BENEDICT CARE PROVIDED. PT TOLERATED WELL.
[2018-11-27 04:31] LABS: Hemoglobin 9.1 g/dL (13.5-17.5)
[2018-11-27 04:34] LABS: Hematocrit 27.1 % (41.0-53.0); Mean Corpuscular Hemoglobin 30.1 pg (28.0-32.0); Mean Corpuscular Hgb Conc. 33.6 g/dL (32.0-36.0); Mean Corpuscular Volume 89.8 fL (80.0-100.0); Platelet Count (auto) 630 10^3/uL (140-450); Red Blood Cells 3.02 10^6/uL (4.5-5.90); Red Cell Distribution Width 16.9 % (11.8-14.3); White Blood Cell 22.3 10^3/uL (4.4-10.8)
[2018-11-27 05:28] LABS: Basophils % (manual) 0 (0.0-2.0); Blast Cells 0; Promyelocytes % 0; Reactive Lymphocytes 0
--- NOTE | 2018-11-27 05:49 | NUR ---
elimination PT PLACED ON BED AVILA. PT HAD MODERATE LIQUID STOOL. PT CLEANED. BENEDICT CARE PROVIDED. PT TOLERATED WELL.
[2018-11-27] MEDS: InsuLIN REG 1unit/0.01ml Soln (100units/ml) SC SCH ×4 (06:00→23:16)
[2018-11-27] MEDS: CEFEPIME 2 GM in SODIUM CHL 0.9% 50 ML IV SCH ×3 (06:16→21:49)
[2018-11-27] MEDS: GABAPENTIN 300 MG CAP PO SCH ×3 (06:17→21:46)
[2018-11-27] MEDS: NYSTATIN (MOUTH-THROAT) 500,000 UNITS/5 ML SUSP MT SCH ×4 (06:17→21:46)
[2018-11-27] MEDS: ACCU-CHEK COMFORT CURVE STRIP VI SCH ×4 (06:17→23:16)
[2018-11-27] MEDS: ALBUTEROL SULF 2.5 MG/0.5ML(0.5%) NEB SOLN NEB SCH ×5 (06:31→22:40)
[2018-11-27] MEDS: TOBRAMYCIN 300 MG/5 ML NEB SOLN NEB SCH ×2 (06:31→21:59)
[2018-11-27] MEDS: IPRATROPIUM BROM 0.5 MG/2.5ML INH SOL NEB SCH ×5 (06:31→22:40)
[2018-11-27] MEDS: INSULIN LANTUS (GLARGINE) 1 /0.01ml (100units/ml) SC SCH ×3 (06:51→23:17)
--- NOTE | 2018-11-27 07:30 | NUR ---
REPORT RECEIVED ASSUMING CARE
[2018-11-27 08:22] LABS: Band Neutrophils % (manual) 2; Eosinophils % (manual) 1 (0-7); Lymphocytes % (manual) 4 (10.0-50.0); Metamyelocytes % 2; Monocytes % (manual) 4 (0-12); Myelocytes % 1
--- NOTE | 2018-11-27 09:25 | NUR ---
Respiratory note: Replaced pt's cool aerosol reservoir, adjusted corrogated tubing circuit for proper condensation drainage. Suctioned pt, large amount thin white secretions. Pt with desats, increased cool aerosol to 35% 10L. Pt tolerating well now with HR 95, RR 26, POX 95%.
[2018-11-27] MEDS: FLORASTOR (S. BOULARDII) 250 MG CAP PO SCH (11:08)
[2018-11-27] MEDS: APIXABAN 5 MG TAB PO SCH ×2 (11:08→21:47)
[2018-11-27] MEDS: FAMOTIDINE (10MG/ML) 2ML VL IV SCH ×2 (11:09→21:48)
[2018-11-27] MEDS: SERTRALINE HCL 50 MG TAB PO SCH ×2 (11:09→14:27)
[2018-11-27] MEDS: MULTIPLE VITAMINS W/ MINERALS TAB PO SCH (11:09)
[2018-11-27] MEDS: METOPROLOL TARTRATE 25 MG TAB PO SCH ×2 (11:09→21:47)
--- NOTE | 2018-11-27 11:22 | NUR ---
Nutrition Follow-up Notes Wt.: 52.2 kg today. Pt's on Trach collar, asleep, no signs of distress noted earlier, currently NPO with EN support of Glucerna 1.2 Eddie @ 60 ml/hr via PEG tube providing 1728 kcal, 86 gms protein and 966 ml free water, tolerates feeding, had 5 ml residuals noted by RN this morning. Pt with adequate EN support d/t mod initiation rate delivery of concentrated formula aeb current EN infusion meets 76 to 92% of est caloric needs and 81 to 114% of est protein needs. Est. Needs IBW (75 kg): 6668-7808 kcal (25-30 kcal/kgIBW), 75-105 gms pro (1.0-1.4 gms/kgIBW d/t severe hypoalbuminemia, CA). Will continue to monitor pertinent labs and reassess nutrient need prn Labs: POC Gluc 236 H, 11/26/18 Gluc 237 H, CO2 34 H, Cr 0.43 L, AST 11 L, ALP 294 H, Tpro 6.3 L, Alb 2.3 L Skin: Atiilo scale 16, mod risk, pt's pressure ulcer on right heel and medial sacrum per electrician control equipment. Pls refer to latest catering director's notes for further details re: tx plans. Noted pt's on daily MVI supplement GI: Pt had 4x BM this morning per electrician control equipment. PES: Altered nutrition related lab values r/t current/chronic medical condition aeb mod hypoalb hyperglycemia Increased nutrient needs r/t chronic medical condition aeb pt's CA, severe underwt, EN support via PEG and NPO Will continue to monitor NPO status, EN tolerance, skin status, pertinent labs and weight trend. F/u in 2 to 3 days. Rec.: 1.) Consider gradual increase on feeding rate of Glucerna 1.2 Eddie to 75 ml/hr goal rate as tolerated if medically appropriate. 2.) If Albumin continues trending down, consider Prostat 1 pkt BID. 3.) Consider daily Asc acid 500 mgs BID. 4.) Refer pt to CDE/RD for further nutrition education and weight monitoring upon discharge. 5.) Continue current plan of care.
--- NOTE | 2018-11-27 11:40 | NUR ---
WOUND CARE NOTE: IN TO SEE PATIENT AT THIS TIME FOR WOUND RE-EVALUATION. PATIENT CONTINUES TO REST ON VCP 500 AIRBED. CURRENT KEYA SCORE IS 15. PATIENT CAN ASSIST WITH HIS TURNING/REPOSITIONING. HE IS WORKING WITH PHYSICAL THERAPY AND GETTING UP IN CHAIR PER BEDSIDE NURSE. PATIENT CONTINUES TO BE VENTILATED BY WAY OF TRACH. PATIENT CONTINUES TO HAVE PRESSURE INJURIES WITH LITTLE CHANGE NOTED TO SACRUM, R/L ISCHIUM, RIGHT HEEL. HE HAS A BRIGHT RED BLANCHABLE RED RASH TO THE RIGHT HIP/SACRUM. SKIN REMAINS INTACT, NO VESICLES/BLISTERING NOTED. HE HAD SHINGLES IN THIS AREA. DR. ROTHMAN WAS NOTIFIED OF RASH. WOUND DRESSINGS CHANGED AT THIS TIME PER WOUND CARE ORDER. PATIENT TOLERATED WELL, NOTING NO PAIN BY PATIENT. RECOMMEND: CONTINUATION WITH ALL WOUND CARE ORDERS PREVIOUSLY PRESCRIBED BY MD. WOUND CARE TEAM WILL CONTINUE TO MONITOR. Addendum: 11/27/18 at 1646 by Tiera Rincon RN Amended: Links added.
[2018-11-27] MEDS: HYDROcodone-ACET 5/325MG TAB PO PRN ×2 (11:43→21:48)
--- NOTE | 2018-11-27 12:30 | NUR ---
OOB TO CHAIR WITH PT
[2018-11-27] MEDS: ACYCLOVIR 400 MG TAB PO SCH ×3 (14:26→21:48)
[2018-11-27] MEDS: LORazepam 2MG/ML-1ML VIAL IV PRN (14:29)
[2018-11-27] MEDS: AMIKACIN IV SCH (14:47)
[2018-11-27] MEDS: SODIUM CHL 0.9% IV SCH (14:47)
[2018-11-27] MEDS: TEMAZEPAM 15 MG CAP PO PRN (21:47)
[2018-11-28] VITALS (23 sets, daily range): BP systolic 106–154; BP diastolic 50–75
--- NOTE | 2018-11-28 02:30 | NUR ---
INCONTINENCE TO STOOL WHEN THIS RN CAME BACK FROM BREAK, PATIENT WAS SLEEPING BUT HE WAS INCONTINENT TO STOOL. WOKE UP THE PATIENT AND CLEANED HIM. PATIENT WENT BACK TO SLEEP AFTER CLEANING.
[2018-11-28] MEDS: CEFEPIME 2 GM in SODIUM CHL 0.9% 50 ML IV SCH ×3 (05:57→21:49)
[2018-11-28] MEDS: NYSTATIN (MOUTH-THROAT) 500,000 UNITS/5 ML SUSP MT SCH ×4 (05:57→21:46)
[2018-11-28] MEDS: GABAPENTIN 300 MG CAP PO SCH ×3 (05:58→21:47)
[2018-11-28] MEDS: ACYCLOVIR 400 MG TAB PO SCH ×5 (05:58→21:47)
[2018-11-28] MEDS: InsuLIN REG 1unit/0.01ml Soln (100units/ml) SC SCH ×3 (06:00→18:14)
[2018-11-28] MEDS: ACCU-CHEK COMFORT CURVE STRIP VI SCH ×3 (06:17→17:41)
[2018-11-28] MEDS: INSULIN LANTUS (GLARGINE) 1 /0.01ml (100units/ml) SC SCH ×2 (06:17→22:10)
[2018-11-28] MEDS: HYDROcodone-ACET 5/325MG TAB PO PRN ×3 (06:23→21:48)
[2018-11-28] MEDS: IPRATROPIUM BROM 0.5 MG/2.5ML INH SOL NEB SCH ×5 (06:30→21:54)
[2018-11-28] MEDS: ALBUTEROL SULF 2.5 MG/0.5ML(0.5%) NEB SOLN NEB SCH ×5 (06:31→21:54)
--- NOTE | 2018-11-28 10:12 | NUR ---
BM/COMFORT PATIENT NOTIFIED THIS NURSE OF BM AND PLACED ON BEDPAN. PATIENT CLEANSED OF SOFT/LIQUID BROWN STOOL AND TOLERATED WELL. WOUND CARE AND OPTIFOAM APPLIED TO SACRAL WOUND. PATIENT'S SPOUSE AT BEDSIDE.
[2018-11-28] MEDS: TOBRAMYCIN 300 MG/5 ML NEB SOLN NEB SCH ×2 (10:33→18:32)
[2018-11-28] MEDS: FAMOTIDINE (10MG/ML) 2ML VL IV SCH ×2 (10:45→21:47)
[2018-11-28] MEDS: APIXABAN 5 MG TAB PO SCH ×2 (10:46→21:47)
[2018-11-28] MEDS: FLORASTOR (S. BOULARDII) 250 MG CAP PO SCH (10:47)
[2018-11-28] MEDS: SERTRALINE HCL 50 MG TAB PO SCH (10:48)
[2018-11-28] MEDS: METOPROLOL TARTRATE 25 MG TAB PO SCH ×3 (10:48→21:48)
[2018-11-28] MEDS: MULTIPLE VITAMINS W/ MINERALS TAB PO SCH (10:48)
--- NOTE | 2018-11-28 12:37 | NUR ---
HOSPITALIST/FAMILY AT BEDSIDE DR ROTHMAN DISCUSSED PLAN OF CARE WITH PATIENT AND MULTIPLE FAMILY MEMBERS AT BEDSIDE. NO ORDERS AT THIS TIME.
[2018-11-28] MEDS: MORPHINE SULF INJ 2 MG/ML SYRINGE 1ML IV PRN (15:00)
--- NOTE | 2018-11-28 15:15 | NUR ---
WOUND CARE UNABLE TO PERFORM WOUND CARE, NO OPTIFOAM AVAILABLE. ALL WOUND BANDAGES INTACT. ONLY ABLE TO CHANGE SACRAL OPTIFOAM DUE TO FREQUENT LIQUID BOWEL MOVEMENTS, NO MORE OPTIFOAM AVAILABLE. MATERIALS AWARE.
--- NOTE | 2018-11-28 15:27 | NUR ---
BM/COMFORT PATIENT CLEANSED OF LIQUID, BROWN STOOL AFTER REQUESTING BEDPAN. OPTIFOAM REPLACED TO MEDIAL SACRAL WOUND. PATIENT TOLERATED WELL. PATIENT'S SON AT BEDSIDE.
--- NOTE | 2018-11-28 16:01 | NUR ---
CONTACT PHARMACY REGARDING AMIKACIN AVAILABILITY, LEANNA STATED THEY WOULD SEND UP TO ICU UNIT.
--- NOTE | 2018-11-28 16:36 | NUR ---
SPOKE WITH HOSPITALIST/MESSAGE LEFT FOR DIETARY DR ROTHMAN NOTIFIED OF PATIENT'S FREQUENT LIQUID STOOL, ORDERS TO NOTIFY DIETARY TO CHANGE NUTRITION FROM GLUCERNA TO ELEMENTAL FORMULA. MESSAGE LEFT FOR DIETARY. DR ROTHMAN ALSO AWARE OF PATIENT'S REFUSAL TO SIT UP IN BEDSIDE CHAIR TODAY AFTER FREQUENT VISITS FROM PHYSICAL THERAPY.
[2018-11-28] MEDS ORDERED: DIPHENOXYLATE W/ATROPINE 2.5 MG TAB PO ONE (16:45)
[2018-11-28] MEDS: SODIUM CHL 0.9% IV SCH (17:03)
[2018-11-28] MEDS: AMIKACIN IV SCH (17:03)
--- NOTE | 2018-11-28 17:20 | NUR ---
RETURN CALL FROM DIETARY DIETARY CLOSED UNABLE TO MAKE CHANGE. WILL ENDORSE TO GENERAL II FARMWORKER RN TO HAVE AM NURSE CALL DIETARY. PATIENT AWARE.
--- NOTE | 2018-11-28 19:50 | NUR ---
INITIAL CONTACT ASSUMED CARE OF PATIENT PATIENT APPEARS TO BE RESTING IN BED COMFORTABLY IN SUPINE POSITION AT THIS TIME AAOX4, VITAL SIGNS WITHIN NORMAL LIMITS, PATIENT STATES THAT LEG PAIN IS TOLERABLE 05/13, DOES NOT NEED MEDICATION AT THIS TIME. URINAL AT BEDSIDE, LEFT UPPER ARM PICC IN TACT WITH NO S/S OF PHLEBITIS OR INFILTRATION. PATIENT IS IN FULL VIEW OF NURSES STATION, SAFETY MAINTAINED WILL CONTINUE TO MONITOR Addendum: 11/30/18 at 0024 by Mirna Stewart RN INCORRECT DATE, DATE SHOULD BE 11/29 TIME IS 1950
[2018-11-28] MEDS: TEMAZEPAM 15 MG CAP PO PRN (21:47)
[2018-11-29] VITALS (37 sets, daily range): BP systolic 110–157; BP diastolic 50–80
[2018-11-29] MEDS: ACCU-CHEK COMFORT CURVE STRIP VI SCH ×4 (00:20→18:12)
[2018-11-29] MEDS: InsuLIN REG 1unit/0.01ml Soln (100units/ml) SC SCH ×4 (00:44→18:00)
--- NOTE | 2018-11-29 02:45 | NUR ---
Patient bathe/linen change Patient given complete bath. Skin integrity assessed for any changes. Linens changed. Patient repositioned for comfort.
--- NOTE | 2018-11-29 03:00 | NUR ---
DRESSING CHANGED PATIENT IS INCONTINENT TO URINE WHILE SLEEPING. CHANGED LT .HIP WOUND DRESSING AND SACRAL WOUND DRESSING.
[2018-11-29] MEDS: HYDROcodone-ACET 5/325MG TAB PO PRN (05:33)
[2018-11-29] MEDS: ACYCLOVIR 400 MG TAB PO SCH ×2 (05:34→10:44)
[2018-11-29] MEDS: CEFEPIME 2 GM in SODIUM CHL 0.9% 50 ML IV SCH ×3 (05:34→22:26)
[2018-11-29] MEDS: GABAPENTIN 300 MG CAP PO SCH ×3 (05:34→22:27)
[2018-11-29] MEDS: NYSTATIN (MOUTH-THROAT) 500,000 UNITS/5 ML SUSP MT SCH ×4 (05:34→22:27)
[2018-11-29 05:45] LABS: Hemoglobin 9.3 g/dL (13.5-17.5)
[2018-11-29 05:48] LABS: Mean Corpuscular Hgb Conc. 33.2 g/dL (32.0-36.0); Mean Corpuscular Volume 87.3 fL (80.0-100.0); Platelet Count (auto) 618 10^3/uL (140-450); Red Blood Cells 3.21 10^6/uL (4.5-5.90); Red Cell Distribution Width 17.2 % (11.8-14.3)
[2018-11-29 05:58] LABS: Basophils % (manual) 0 (0.0-2.0); Blast Cells 0; Promyelocytes % 0; Reactive Lymphocytes 0
[2018-11-29 06:15] LABS: BUN/Creatinine Ratio 44.4; Potassium 3.8 mmol/L (3.5-5.1)
[2018-11-29] MEDS: INSULIN LANTUS (GLARGINE) 1 /0.01ml (100units/ml) SC SCH ×3 (06:50→22:28)
[2018-11-29] MEDS: ALBUTEROL SULF 2.5 MG/0.5ML(0.5%) NEB SOLN NEB SCH ×5 (07:13→22:15)
[2018-11-29] MEDS: IPRATROPIUM BROM 0.5 MG/2.5ML INH SOL NEB SCH ×5 (07:13→22:15)
--- NOTE | 2018-11-29 07:20 | NUR ---
OPENING NOTE SHIFT REPORT RECEIVED AND ASSUMED CARE OF PT FROM GURJIT WATTS
[2018-11-29 07:50] LABS: Band Neutrophils % (manual) 3; Eosinophils % (manual) 4 (0-7); Lymphocytes % (manual) 4 (10.0-50.0); Metamyelocytes % 5; Monocytes % (manual) 5 (0-12); Myelocytes % 2
--- NOTE | 2018-11-29 08:00 | NUR ---
BM PT HAD MODERATE AMOUNT BROWN LIQUID DIARRHEA ON BED AVILA
--- NOTE | 2018-11-29 09:25 | NUR ---
TRACH CARE DONE AT THIS TIME, CHANGED, GAUZE AND TRACH TIE. CLEANED SITE AND INNER CANNULA. SX'D PT. FOR MODERATE AMOUNT OF THICK CLEAR TO CLOUDY SECRETIONS. PT. REFUSED TO HAVE SPEAKING VALVE PUT ON, HE STATES HE CANNOT BREATH WITH IT ON. THERE WAS AN ATTEMPT YESTERDAY, BUT PT. COULD NOT TOLERATE.
--- NOTE | 2018-11-29 10:15 | NUR ---
BM PT HAD MODERATE AMOUNT BROWN LIQUID DIARRHEA ON BED AVILA
[2018-11-29] MEDS: APIXABAN 5 MG TAB PO SCH ×2 (10:43→22:27)
[2018-11-29] MEDS: FAMOTIDINE (10MG/ML) 2ML VL IV SCH ×2 (10:44→22:27)
[2018-11-29] MEDS: METOPROLOL TARTRATE 25 MG TAB PO SCH ×2 (10:44→22:30)
[2018-11-29] MEDS: MULTIPLE VITAMINS W/ MINERALS TAB PO SCH (10:44)
[2018-11-29] MEDS: FLORASTOR (S. BOULARDII) 250 MG CAP PO SCH (10:45)
[2018-11-29] MEDS: SERTRALINE HCL 50 MG TAB PO SCH (10:45)
[2018-11-29] MEDS: TOBRAMYCIN 300 MG/5 ML NEB SOLN NEB SCH ×2 (10:52→18:28)
--- NOTE | 2018-11-29 11:03 | NUR ---
Nutrition Follow-up Notes Wt.: 52.6 kg Pt's on Trach collar, asleep, no signs of distress noted earlier, currently NPO with EN support of Glucerna 1.2 Eddie @ 60 ml/hr via PEG tube providing 1728 kcal, 86 gms protein and 966 ml free water. pt with diarrhea and needs elemental feeds. RN infomred of diet rec per MD approval. Pt with adequate EN support d/t mod initiation rate delivery of concentrated formula aeb current EN infusion meets 76 to 92% of est caloric needs and 81 to 114% of est protein needs. Est. Needs IBW (75 kg): 5676-1610 kcal (25-30 kcal/kgIBW), 75-105 gms pro (1.0-1.4 gms/kgIBW d/t severe hypoalbuminemia, CA). Will continue to monitor pertinent labs and reassess nutrient need prn Labs: GLU 180 H, rest lab wnl for today Skin: Atilio scale 15, mod risk, pt's pressure ulcer on right heel and medial sacrum per processor helper. Pls refer to latest air saw operator's notes for further details re: tx plans. Noted pt's on daily MVI supplement GI: Pt had 1 BM this morning per processor helper. PES: Altered nutrition related lab values r/t current/chronic medical condition aeb mod hypoalb hyperglycemia Increased nutrient needs r/t chronic medical condition aeb pt's CA, severe underwt, EN support via PEG and NPO Will continue to monitor NPO status, EN tolerance, skin status, pertinent labs and weight trend. F/u in 2 to 3 days. Rec.: 1.) Consider feeding with Vital AF 1.2 @ 1.2 Eddie to 75 ml/hr goal rate as tolerated if medically appropriate. 2.) If Albumin continues trending down, consider Prostat 1 pkt BID. 3.) Consider daily Asc acid 500 mgs BID. 4.) Refer pt to CDE/RD for further nutrition education and weight monitoring upon discharge. 5.) Continue current plan of care.
--- NOTE | 2018-11-29 11:07 | NUR ---
SUCTION TRACH WITH 14 PITCAIRN ISLANDER CATHETER X2 FOR MODERATE AMOUNT THICK PALE YELLOW SECRETIONS. BS. CLEARED AFTER SUCTION. FAMILY IN THE ROOM AT THIS TIME. CONTINUE TO MONITOR RESP. STATUS.
--- NOTE | 2018-11-29 12:00 | NUR ---
BM PT HAD MODERATE AMOUNT BROWN LIQUID DIARRHEA ON BED AVILA
--- NOTE | 2018-11-29 13:00 | NUR ---
PT AND BM PT AMBULATED IN ROOM WITH PHYSICAL THERAPY ASSISTANCE. PT TOLERATED WELL. ALSO HAD INCONTINENT STOOL DURING AMBULATION.
[2018-11-29] MEDS ORDERED: LOPERAMIDE HCL 2 MG CAP PO PRN (13:30)
--- NOTE | 2018-11-29 13:47 | NUR ---
SHIFT REPORT GIVEN TO BRENT WATTS
[2018-11-29] MEDS: LORazepam 2MG/ML-1ML VIAL IV PRN (14:06)
--- NOTE | 2018-11-29 14:45 | NUR ---
RECEIVED PATIENT FROM THE ICU ROOM 103, A/O TIMES 4, RECEIVED ON A SPECIALTY BED, TRACH SIZE 8 SHILEY TO THE NECK, WITH O2 BY THE TRACH COLLAR AT 8L AND 30% FIO2, PATIENT STATES HE CAN USE THE URINAL BUT IS SOMETIMES INCONTINENT OF URINE AND STOOL, PICC LINE TO THE WILLARD WITH 3 LUMENS, WITH ANTIBIOTICS INFUSING BY THE IV PUMP, PEG TUBE THE LUQ FLUSHED AND PATENT NO FEEDING AT THIS TIME WAITING FOR NEW FEEDING TO BE BROUGHT FROM THE KITCHEN, DENIES PAIN AND SOB
[2018-11-29] MEDS: AMIKACIN IV SCH (15:00)
[2018-11-29] MEDS: SODIUM CHL 0.9% IV SCH (15:00)
--- NOTE | 2018-11-29 15:30 | NUR ---
STATES HE IS DOING OKAY
--- NOTE | 2018-11-29 17:00 | NUR ---
EASILY AROUSED WHEN YOU CALL HIS NAME AND A/O NO COMPLAINTS EYES CLOSED
--- NOTE | 2018-11-29 18:00 | NUR ---
CALLED TO INQUIRE ABOUT THE PATIENT Addendum: 11/29/18 at 1802 by Fidelina Denis RN CHANGE TIME TO 1600
--- NOTE | 2018-11-29 18:29 | NUR ---
RT NOTE PT WAS SEEN BY RT FOR HHN TX. PT TOLERATES WELL VIA TRACH COLLAR. PT IS ON 8L/30% COOL AEROSOL. PT IS TRACHED WITH 8.0 SHILEY JEWEL BEARING GRINDER. SARANYAE CJ AT BEDSIDE. PT STATES NO SUCTION NEEDED AT THIS TIME. CONT ORDERED. POX 96% Addendum: 11/29/18 at 1831 by Lillian Elam RT Amended: Links added.
--- NOTE | 2018-11-29 19:25 | NUR ---
INITIAL CONTACT ASSUMED CARE OF PATIENT PATIENT APPEARS TO BE RESTING IN BED COMFORTABLY IN SEMI-FOWLERS POSITION AT THIS TIME. AAOX4, VITAL SIGNS WITHIN NORMAL LIMITS. NO S/S OF DISTRESS NOTED. PATIENT DENIES PAIN. URINAL AT BEDSIDE. PICC LINE TO UPPER LEFT ARM, INTACT WITH NO S/S OF INFILTRATION OR PHLEBITIS. PATIENT IS TRACHED AT THIS TIME. PEG TUBE IN TACT AND CLAMPED. PLAN OF CARE DISCUSSED WITH PATIENT, PATIENT VERBALIZED UNDERSTANDING. SAFETY MAINTAINED, WILL CONTINUE TO MONITOR
--- NOTE | 2018-11-29 19:44 | NUR ---
NOTIFIED DIETARY ABOUT THE PEG TUBE FEEDING AND STATED SHE DID NOT HAVE THE LAURA AF AND WE WOULD HAVE TO USE THE GLUCERNA FOR TONIGHT, PATIENT A/O, SITTING UP IN BED, GETTING A BREATHING TREATMENT, NO CHANGE IN CONDITION, O2 BY THE TRACH COLLAR AT 8L AND 30%, USES THE URINAL, PEG TUBE TO THE ABD PATENT, ON SPECIALTY BED, PICC LINE TO THE FIONA INTACT AND PATENT,NO COMPLAINTS OF PAIN OR SOB, WILL CONTINUE TO MONITOR AND GIVE REPORT TO THE NEXT SHIFT Addendum: 11/29/18 at 1950 by Fidelina Denis RN CHANGE TIME TO 1829
[2018-11-29] MEDS: MORPHINE SULF INJ 2 MG/ML SYRINGE 1ML IV PRN (20:38)
--- NOTE | 2018-11-29 22:00 | NUR ---
TRESA HELD WILL REASSESS AFTER ACCUCHEK AT 0000
--- NOTE | 2018-11-29 22:16 | NUR ---
RT NOTE PT SEEN BY RT FOR HHN TX. PT IS SLEEPING. TX WAS PLACED INLINE WITH COOL AEROSOL. PT TOLERATES WELL VIA TRACH COLLAR. CONT ORDERED Addendum: 11/29/18 at 2217 by Lillian Elam RT Amended: Links added.
[2018-11-30] VITALS (21 sets, daily range): BP systolic 102–142; BP diastolic 48–71
[2018-11-30] MEDS: InsuLIN REG 1unit/0.01ml Soln (100units/ml) SC SCH ×4 (05:11→18:00)
[2018-11-30] MEDS: ACCU-CHEK COMFORT CURVE STRIP VI SCH ×4 (05:11→18:00)
[2018-11-30] MEDS: ALBUTEROL SULF 2.5 MG/0.5ML(0.5%) NEB SOLN NEB SCH ×4 (05:46→19:07)
[2018-11-30] MEDS: IPRATROPIUM BROM 0.5 MG/2.5ML INH SOL NEB SCH ×4 (05:46→19:07)
[2018-11-30] MEDS: TOBRAMYCIN 300 MG/5 ML NEB SOLN NEB SCH ×2 (05:46→19:08)
[2018-11-30] MEDS: GABAPENTIN 300 MG CAP PO SCH ×3 (06:55→22:07)
[2018-11-30] MEDS: CEFEPIME 2 GM in SODIUM CHL 0.9% 50 ML IV SCH ×3 (06:58→22:27)
[2018-11-30] MEDS: INSULIN LANTUS (GLARGINE) 1 /0.01ml (100units/ml) SC SCH ×2 (07:00→22:00)
[2018-11-30] MEDS: NYSTATIN (MOUTH-THROAT) 500,000 UNITS/5 ML SUSP MT SCH ×4 (07:03→22:28)
--- NOTE | 2018-11-30 08:00 | NUR ---
Opening Shift Note Assumed care of patient, awake and alert. Patient A&Ox4. Patient has a Trach collar size 8 Shiley, on 30% FIO2, saturation at 97%. Patient on the monitor. PICC line left upper arm triple lumen saline locked, patent, clean, dry, and intact. PEG tube site clean, dry, and intact. PEG tube running Glucerna at 50ml/hr. No residual aspirated. Glucerna turned up to 60ml/hr per orders. No S/S of distress/SOB or pain. Instructed on POC and to call for assist. Bed locked and in the lowest position, side rails up x2, call light with in reach. Will continue to monitor.
[2018-11-30] MEDS: FAMOTIDINE (10MG/ML) 2ML VL IV SCH ×2 (10:00→22:28)
[2018-11-30] MEDS: FLORASTOR (S. BOULARDII) 250 MG CAP PO SCH (10:00)
[2018-11-30] MEDS: APIXABAN 5 MG TAB PO SCH ×2 (10:00→22:07)
[2018-11-30] MEDS: METOPROLOL TARTRATE 25 MG TAB PO SCH ×2 (10:00→22:10)
[2018-11-30] MEDS: SERTRALINE HCL 50 MG TAB PO SCH (10:00)
[2018-11-30] MEDS: MULTIPLE VITAMINS W/ MINERALS TAB PO SCH (10:00)
--- NOTE | 2018-11-30 10:00 | NUR ---
Medication dosages, usages, and side effects explained to patient. Patient verbalized understanding. Will continue to monitor.
[2018-11-30] MEDS: LORazepam 2MG/ML-1ML VIAL IV PRN (11:46)
--- NOTE | 2018-11-30 12:45 | NUR ---
Dr. Sequeira at bedside.
--- NOTE | 2018-11-30 15:00 | NUR ---
Patient resting at this time. No S/S of pain/SOB or distress at this time. Will continue to monitor.
[2018-11-30] MEDS: AMIKACIN IV SCH (15:52)
[2018-11-30] MEDS: SODIUM CHL 0.9% IV SCH (15:52)
[2018-11-30] MEDS: MORPHINE SULF INJ 2 MG/ML SYRINGE 1ML IV PRN (16:04)
--- NOTE | 2018-11-30 17:15 | NUR ---
Patient resting at this time. No S/S of pain/SOB or distress at this time. Will continue to monitor.
--- NOTE | 2018-11-30 18:30 | NUR ---
End of shift note: Patient resting at this time. Patient A&Ox4. Patient has a Trach collar size 8 Shiley, on 30% FIO2, saturation at 96%. Patient on the monitor. PICC line left upper arm triple lumen saline locked, patent, clean, dry, and intact. PEG tube site clean, dry, and intact. PEG tube running Glucerna at 60ml/hr. No residual aspirated. No S/S of distress/SOB or pain. Bed locked and in the lowest position, side rails up x2, call light with in reach. Report to be given to shift leader RN. Will continue to monitor.
--- NOTE | 2018-11-30 19:10 | NUR ---
RT NOTE PT WAS SEEN BY RT FOR HHN TX. PT TOLERATES WELL VIA MASK. NO ADVERSE REACTION NOTED. PT SLEPT THROUGH TX AND DENIES SUCTION AT THIS TIME. 8.0 SHILEY PURCHASING EXPEDITOR TRACH LOOKS CLEAN AND DRY AT THIS TIME. SPARE TRACH AND AMBU BAG AT BEDSIDE. COOL AEROSOL AT 8L/30% AND ADEQUATELY FILLED. CONT ORDERED Addendum: 11/30/18 at 1913 by Lillian Elam RT Amended: Links added.
--- NOTE | 2018-11-30 19:30 | NUR ---
received pt from day rn poc reviewed
--- NOTE | 2018-11-30 19:45 | NUR ---
pt resting with hob up resp even and unlabored, pt uses yankaur suction, call light within reach, denies pain or discomfort
[2018-11-30] MEDS: HYDROcodone-ACET 5/325MG TAB PO PRN (23:48)
[2018-12-01] VITALS: BP 128/72
[2018-12-01] MEDS: IPRATROPIUM BROM 0.5 MG/2.5ML INH SOL NEB SCH ×6 (00:22→21:58)
[2018-12-01] MEDS: ALBUTEROL SULF 2.5 MG/0.5ML(0.5%) NEB SOLN NEB SCH ×6 (00:22→21:58)
--- NOTE | 2018-12-01 00:23 | NUR ---
RT NOTE PT WAS SEEN BY RT FOR HHN TX. PT TOLERATES WELL VIA TRACH COLLAR. NO ADVERSE REACTION NOTED. PT WAS SUCTIONED FOR MODERATE RETURN. CONT ORDERED Addendum: 12/01/18 at 0033 by Lillian Elam RT Amended: Links added.
[2018-12-01] MEDS: ACCU-CHEK COMFORT CURVE STRIP VI SCH ×4 (00:53→17:35)
--- NOTE | 2018-12-01 03:11 | NUR ---
resting with eyes closed pain relieved with med given
[2018-12-01 04:00] VITALS: BP 83/51
--- NOTE | 2018-12-01 04:20 | NUR ---
RT NOTE TRACH CARE DONE WITHOUT INCIDENT. DRAIN BAG EMPTIED. SPARE TRACH AT BEDSIDE. CONT ORDERED Addendum: 12/01/18 at 0431 by Lillian Elam RT Amended: Links added.
[2018-12-01] MEDS: CEFEPIME 2 GM in SODIUM CHL 0.9% 50 ML IV SCH ×3 (05:25→22:17)
[2018-12-01] MEDS: HYDROcodone-ACET 5/325MG TAB PO PRN ×4 (05:26→20:51)
[2018-12-01] MEDS: MORPHINE SULF INJ 2 MG/ML SYRINGE 1ML IV PRN ×3 (05:42→18:41)
[2018-12-01] MEDS: NYSTATIN (MOUTH-THROAT) 500,000 UNITS/5 ML SUSP MT SCH ×4 (05:58→22:18)
[2018-12-01] MEDS: GABAPENTIN 300 MG CAP PO SCH ×3 (05:58→22:19)
[2018-12-01] MEDS: InsuLIN REG 1unit/0.01ml Soln (100units/ml) SC SCH ×4 (06:00→17:35)
[2018-12-01] MEDS: INSULIN LANTUS (GLARGINE) 1 /0.01ml (100units/ml) SC SCH ×2 (06:19→22:20)
--- NOTE | 2018-12-01 07:50 | NUR ---
Opening Shift Note Assumed care of patient, awake and alert, communication by reading Lip. No S/S of distress/SOB or chest pain. Instructed on POC and to call for assist PRN, will continue to monitor for changes Q1hr and PRN.
[2018-12-01 08:00] VITALS: BP 124/61
--- NOTE | 2018-12-01 09:30 | NUR ---
Mouth care provided, partial linen changed, position changed at this time as well, suction clear air way, secretion with creamy color and moderate amount. Will continue to monitor and care.
[2018-12-01] MEDS: FAMOTIDINE (10MG/ML) 2ML VL IV SCH ×2 (09:50→22:18)
[2018-12-01] MEDS: MULTIPLE VITAMINS W/ MINERALS TAB PO SCH (09:51)
[2018-12-01] MEDS: APIXABAN 5 MG TAB PO SCH ×2 (09:51→22:18)
[2018-12-01] MEDS: FLORASTOR (S. BOULARDII) 250 MG CAP PO SCH (09:51)
[2018-12-01] MEDS: SERTRALINE HCL 50 MG TAB PO SCH (09:51)
[2018-12-01] MEDS: METOPROLOL TARTRATE 25 MG TAB PO SCH ×2 (09:53→22:19)
[2018-12-01] MEDS: TOBRAMYCIN 300 MG/5 ML NEB SOLN NEB SCH ×2 (10:13→22:00)
--- NOTE | 2018-12-01 10:30 | NUR ---
Dr. Sequeira at the bedside, plan of care discussed with ricon and his families ( and son), they agreed with the plan of care. Plan to get up to chair 3 times a day.
--- NOTE | 2018-12-01 11:30 | NUR ---
PT at the bedside, patient sitting on the chair by PT assist, patient stated that plan to sit around 1 hour and will try 3 times a day per MD recommendation.
--- NOTE | 2018-12-01 12:30 | NUR ---
Patient had moderate bowel movement, perineal care provided, and went back to bed. Mouth care provided, suction provided. Will continue to monitor and care. PEG no content noted, no N/V noted, tolerated well.
[2018-12-01] MEDS: AMIKACIN IV SCH (14:53)
[2018-12-01] MEDS: SODIUM CHL 0.9% IV SCH (14:53)
[2018-12-01 16:00] VITALS: BP 93/66
--- NOTE | 2018-12-01 16:00 | NUR ---
Patient lying on the bed, watching TV, received a call from his . Patient made aware about a phone call from his . Provided bedpan but no bowel movement at this time. Patient refused to go to the chair because he still feeling like he will have bowel movement again. Will continue to monitor and care.
--- NOTE | 2018-12-01 18:50 | NUR ---
Morphine given for pain management, patient sitting up on the bed and watching TV. No N/V noted. Suction at this time as well. O2 saturation 97-98% on O2 30% 10 LPM with collar mask.
--- NOTE | 2018-12-01 19:16 | NUR ---
OPENING SHIFT RECEIVED REPORT FROM DAY SHIFT RN. ASSUMED CARE OF PATIENT. PATIENT IN BED WATCHING TV WITH NO SIGNS OR SYMPTOMS OF SOB, PAIN OR DISTRESS. CURRENTLY ON 9L 30% FI02 VIA TRACH MASK, 02 SAT - 97%. LEFT UPPER ARM PICC X3 - CLEAN/DRY/INTACT. PEG TUBE IN PLACE, NO RESIDUAL, AUSCULTATED WITH 10CC OF AIR. REPOSITIONED FOR COMFORT. UPDATED PATIENT ON PLAN OF CARE. BED IN LOWEST POSITION, PADDED SIDE RAILS UP X2, CALL LIGHT WITHIN REACH. WILL CONTINUE TO MONITOR. Addendum: 12/01/18 at 2322 by LIYAH TRINH RN RN SIDE RAILS ARE NOT PADDED
[2018-12-01 19:59] VITALS: BP 134/65
[2018-12-02] VITALS: BP 139/69
[2018-12-02] MEDS: ACCU-CHEK COMFORT CURVE STRIP VI SCH ×4 (00:01→18:04)
[2018-12-02] MEDS: InsuLIN REG 1unit/0.01ml Soln (100units/ml) SC SCH ×4 (00:07→18:00)
--- NOTE | 2018-12-02 04:30 | NUR ---
MORNING CARE PATIENT REFUSED MORNING CARE AT THIS TIME. CLEAN LINEN AND WIPES LEFT AT BEDSIDE. WILL CONTINUE TO MONITOR.
--- NOTE | 2018-12-02 05:07 | NUR ---
MORNING CARE PERFORMED MORNING CARE WITH CHG WIPES AND WASH CLOTHS TO THE FACE. PARTIAL LINEN CHANGE AND GOWN CHANGED. REPOSITIONED FOR COMFORT. SKIN REASSESSED AT THIS TIME. BED IN LOWEST POSITION, SIDE RAILS UP X2, CALL LIGHT WITHIN REACH. WILL CONTINUE TO MONITOR.
[2018-12-02] MEDS: ALBUTEROL SULF 2.5 MG/0.5ML(0.5%) NEB SOLN NEB SCH ×5 (06:05→22:19)
[2018-12-02] MEDS: IPRATROPIUM BROM 0.5 MG/2.5ML INH SOL NEB SCH ×5 (06:05→22:19)
[2018-12-02 06:32] LABS: Hematocrit 32.4 % (41.0-53.0); Hemoglobin 10.6 g/dL (13.5-17.5); Mean Corpuscular Hemoglobin 29.7 pg (28.0-32.0); Mean Corpuscular Hgb Conc. 32.6 g/dL (32.0-36.0); Mean Corpuscular Volume 91.1 fL (80.0-100.0); Platelet Count (auto) 484 10^3/uL (140-450); Red Blood Cells 3.55 10^6/uL (4.5-5.90); Red Cell Distribution Width 17.5 % (11.8-14.3); White Blood Cell 18.8 10^3/uL (4.4-10.8)
[2018-12-02 06:40] LABS: Basophils % (manual) 0 (0.0-2.0); Blast Cells 0; Myelocytes % 0; Promyelocytes % 0; Reactive Lymphocytes 0
[2018-12-02 06:46] LABS: Anion Gap 7 (5-15); Blood Urea Nitrogen 17 mg/dL (7-18); Calcium 8.9 mg/dL (8.5-10.1); Carbon Dioxide 28 mmol/L (21-32); Chloride 99 mmol/L (98-107); GFR African American 345 mL/min; GFR Non-African American 285 mL/min; Glucose 140 mg/dL (74-106); Potassium 4.5 mmol/L (3.5-5.1); Sodium 134 mmol/L (136-145)
[2018-12-02] MEDS: NYSTATIN (MOUTH-THROAT) 500,000 UNITS/5 ML SUSP MT SCH ×4 (06:48→21:46)
[2018-12-02] MEDS: CEFEPIME 2 GM in SODIUM CHL 0.9% 50 ML IV SCH ×3 (06:49→21:43)
[2018-12-02] MEDS: GABAPENTIN 300 MG CAP PO SCH ×3 (06:49→21:46)
[2018-12-02] MEDS: HYDROcodone-ACET 5/325MG TAB PO PRN ×3 (06:50→18:03)
--- NOTE | 2018-12-02 07:18 | NUR ---
REPORT GIVEN TO DAY SHIFT RN.
[2018-12-02] MEDS: INSULIN LANTUS (GLARGINE) 1 /0.01ml (100units/ml) SC SCH ×2 (07:32→21:49)
[2018-12-02 07:35] VITALS: BP 119/67
--- NOTE | 2018-12-02 08:00 | NUR ---
Opening Shift Note Assumed care of patient, awake and alert, lying on the bed, re position at this time as well. No S/S of distress/SOB or chest pain. Instructed on POC and to call for assist PRN, will continue to monitor for changes Q1hr and PRN.
--- NOTE | 2018-12-02 09:15 | NUR ---
Dr. Sequeira at the bedside, plan of care discussed with patient. No new order at this time. Will continue to monitor and care.
[2018-12-02 09:43] LABS: Band Neutrophils % (manual) 2; Eosinophils % (manual) 4 (0-7); Lymphocytes % (manual) 9 (10.0-50.0); Metamyelocytes % 2; Monocytes % (manual) 5 (0-12)
[2018-12-02] MEDS: MULTIPLE VITAMINS W/ MINERALS TAB PO SCH (09:53)
[2018-12-02] MEDS: FAMOTIDINE (10MG/ML) 2ML VL IV SCH ×2 (09:53→21:44)
[2018-12-02] MEDS: MORPHINE SULF INJ 2 MG/ML SYRINGE 1ML IV PRN ×2 (09:53→21:45)
[2018-12-02] MEDS: FLORASTOR (S. BOULARDII) 250 MG CAP PO SCH (09:53)
[2018-12-02] MEDS: METOPROLOL TARTRATE 25 MG TAB PO SCH ×2 (09:54→21:46)
[2018-12-02] MEDS: APIXABAN 5 MG TAB PO SCH ×2 (09:54→21:46)
[2018-12-02] MEDS: SERTRALINE HCL 50 MG TAB PO SCH (09:54)
--- NOTE | 2018-12-02 10:10 | NUR ---
His at the bedside, patient refused to go to the chair at this time, okay only exercise on the bed because he stated that he feels uncomfortable in the stomach. Will continue to monitor and care.
[2018-12-02] MEDS: TOBRAMYCIN 300 MG/5 ML NEB SOLN NEB SCH ×2 (10:13→22:29)
--- NOTE | 2018-12-02 10:23 | NUR ---
IS teaching provided, patient refused to use speaking valve because he has a trouble breathing when he has it on. RT at the bedside as well.
--- NOTE | 2018-12-02 11:30 | NUR ---
Mouth care provided, patient tried to use bedpan but had just smear of stool, provided wound dressing changed per wound care nurse recommendation at this time, patient able to help with turning on the bed.
[2018-12-02 11:35] VITALS: BP 127/68
--- NOTE | 2018-12-02 13:00 | NUR ---
Patient lying on the bed, his son at the bedside, patient talking to his son at this time.
--- NOTE | 2018-12-02 14:00 | NUR ---
[place] given for pain management, patient still refused to go to the chair at this time. Patient watching TV at this time.
[2018-12-02] MEDS: AMIKACIN IV SCH (15:32)
[2018-12-02] MEDS: SODIUM CHL 0.9% IV SCH (15:32)
[2018-12-02 15:35] VITALS: BP 122/61
--- NOTE | 2018-12-02 16:32 | NUR ---
Per postdoctoral scientist, still waiting for Vital AF to delivery, will continue Glucerna at this time. Patient made aware.
--- NOTE | 2018-12-02 18:00 | NUR ---
Mouth care provided, suction provided at this time as well.
--- NOTE | 2018-12-02 18:29 | NUR ---
Patient had small bowel movement, perineal care provided, wound care provided with wound dressing changed as well. Re position at this time, patient sitting up on the bed, watching TV at this time, [place] given for pain management. Will continue to monitor and care.
[2018-12-02 20:00] VITALS: BP 126/69
[2018-12-02] MEDS: TEMAZEPAM 15 MG CAP PO PRN (22:20)
[2018-12-02 23:46] VITALS: BP 113/65
[2018-12-03] MEDS: ACCU-CHEK COMFORT CURVE STRIP VI SCH ×5 (00:38→23:51)
[2018-12-03] MEDS: InsuLIN REG 1unit/0.01ml Soln (100units/ml) SC SCH ×4 (00:43→18:00)
[2018-12-03 04:00] VITALS: BP 126/65
[2018-12-03] MEDS: CEFEPIME 2 GM in SODIUM CHL 0.9% 50 ML IV SCH ×3 (05:46→21:31)
[2018-12-03] MEDS: GABAPENTIN 300 MG CAP PO SCH ×3 (05:46→21:33)
[2018-12-03] MEDS: NYSTATIN (MOUTH-THROAT) 500,000 UNITS/5 ML SUSP MT SCH ×4 (05:46→21:35)
--- NOTE | 2018-12-03 05:47 | NUR ---
PICC Line Dressing Changes PICC line dressing change done with a sterile technique. Cleansed with chloraprep scrub/betadine. Stat lock, and bio-patch as available. Occlusive dressing applied. See e-MAR for medications given during this visit.
--- NOTE | 2018-12-03 06:00 | NUR ---
AM CARE/DRESSING CHANGES DONE SKIN INTEGRITY REASSESSED. DRESSINGS CHANGED PER WOUND CARE ORDERS. PATIENT TOLERATED WELL. COMPLETE BED BATH PROVIDED USING CHG WIPES AND WARM WASH CLOTHS. PATIENT REPOSITIONED IN BED AND NEW GOWN APPLIED. COMPLETE LINEN CHANGE DONE. DEEP TRACHEAL SUCTION DONE WITH MODERATE AMTS OF GREEN/MORALEZ THICK SECRETIONS, PATIENT TOLERATED WELL. CALL LIGHT GIVEN TO PATIENT.
[2018-12-03] MEDS: ALBUTEROL SULF 2.5 MG/0.5ML(0.5%) NEB SOLN NEB SCH ×5 (06:15→22:20)
[2018-12-03] MEDS: IPRATROPIUM BROM 0.5 MG/2.5ML INH SOL NEB SCH ×5 (06:15→22:20)
[2018-12-03 07:35] VITALS: BP 128/64
[2018-12-03] MEDS: INSULIN LANTUS (GLARGINE) 1 /0.01ml (100units/ml) SC SCH ×2 (07:39→21:33)
--- NOTE | 2018-12-03 07:45 | NUR ---
END OF SHIFT NOTE PATIENT RESTING IN BED WITH NO SIGNS OF DISTRESS OR SOB PATIENT HAS REMAINED STABLE THROUGHOUT THE NIGHT : SEE VS SPREADSHEET CARE ENDORSED TO DAY SHIFT RN
--- NOTE | 2018-12-03 08:00 | NUR ---
Opening Shift Note Assumed care of patient, awake and alert. Patient A&Ox4. Patient has a Trach collar size 8 Shiley, on 30% FIO2 at 9L, saturation at 98%. Patient on the monitor. PICC line left upper arm triple lumen saline locked, patent, clean, dry, and intact. PEG tube site clean, dry, and intact. PEG tube running Glucerna at 60ml/hr. No residual aspirated. No S/S of distress/SOB or pain. Instructed on POC and to call for assist. Bed locked and in the lowest position, side rails up x2, call light with in reach. Will continue to monitor.
--- NOTE | 2018-12-03 09:08 | NUR ---
12/02/18 Pt is refusing to get out of bed for today. Pt states that he is having stomach issues and not feeling well, would like to take the day off. RN aware Addendum: 12/03/18 at 09 by Lyn Salomon PT Amended: Links added.
[2018-12-03] MEDS: APIXABAN 5 MG TAB PO SCH ×2 (09:47→21:32)
[2018-12-03] MEDS: FAMOTIDINE (10MG/ML) 2ML VL IV SCH ×2 (09:47→21:32)
[2018-12-03] MEDS: MULTIPLE VITAMINS W/ MINERALS TAB PO SCH (09:47)
[2018-12-03] MEDS: FLORASTOR (S. BOULARDII) 250 MG CAP PO SCH (09:47)
[2018-12-03] MEDS: SERTRALINE HCL 50 MG TAB PO SCH (09:47)
[2018-12-03] MEDS: METOPROLOL TARTRATE 25 MG TAB PO SCH ×2 (09:47→21:34)
--- NOTE | 2018-12-03 10:00 | NUR ---
Medication dosages, usages, and side effects explained to patient. Patient verbalized understanding. Will continue to monitor.
[2018-12-03] MEDS: HYDROcodone-ACET 5/325MG TAB PO PRN ×2 (10:06→21:34)
[2018-12-03] MEDS: TOBRAMYCIN 300 MG/5 ML NEB SOLN NEB SCH ×2 (10:53→22:20)
[2018-12-03 11:35] VITALS: BP 127/54
--- NOTE | 2018-12-03 12:15 | NUR ---
Dr. Duarte at bedside.
[2018-12-03] MEDS ORDERED: LEVOTHYROXINE SODIUM 25 MCG TAB PO ONE (12:30)
[2018-12-03] MEDS: MORPHINE SULF INJ 2 MG/ML SYRINGE 1ML IV PRN (12:40)
--- NOTE | 2018-12-03 13:15 | NUR ---
Patient resting at this time. No S/S of pain/SOB or distress. Will continue to monitor.
--- NOTE | 2018-12-03 14:00 | NUR ---
PT assisted patient to bedside chair. Patient tolerating well. Will continue to monitor.
--- NOTE | 2018-12-03 15:30 | NUR ---
PT assisted patient back into bed. Patient resting at this time. Will continue to monitor.
--- NOTE | 2018-12-03 15:39 | NUR ---
Nutrition Follow-up Notes Wt.: 50.7 kg as of yesterday Pt's on Trach collar, asleep, no signs of distress noted earlier, currently NPO with EN support of Glucerna 1.2 Eddie @ 60 ml/hr via PEG tube providing 1728 kcal, 86 gms protein and 966 ml free water, tolerates feeding no residuals noted by RN this morning. Pt with adequate EN support d/t mod initiation rate delivery of concentrated formula aeb current EN infusion meets 76 to 92% of est caloric needs and 81 to 114% of est protein needs. Per nursing, pt still having diarrhea, per MD's order needs elemental feeds, which not yet available at this time, Reassured (c/o FNS director) that Vital AF 1.2 Eddie will be available tomorrow and will initiate EN feeding at 75 m/hr goal rate as tolerated. Est. Needs IBW (75 kg): 0920-5751 kcal (25-30 kcal/kgIBW), 75-105 gms pro (1.0-1.4 gms/kgIBW d/t severe hypoalbuminemia, CA). Will continue to monitor pertinent labs and reassess nutrient need prn Labs: POC Gluc 182 H; 12/01/18 Gluc 140 H, Na 134 L, Cr 34 L Skin: Atilio scale 15, mod risk, pt's pressure ulcer on right heel and medial sacrum per manager environmental health. Pls refer to latest matrix worker's notes for further details re: tx plans. Noted pt's on daily MVI supplement GI: Pt had 1 BM this morning per manager environmental health. PES: Altered nutrition related lab values r/t current/chronic medical condition aeb mod hypoalb hyperglycemia Increased nutrient needs r/t chronic medical condition aeb pt's CA, severe underwt, EN support via PEG and NPO Will continue to monitor NPO status, EN tolerance, skin status, pertinent labs and weight trend. F/u in 2 to 3 days. Rec.: 1.) Consider gradual increase on feeding rate of Glucerna 1.2 Eddie to 75 ml/hr goal rate as tolerated when medically appropriate. 2.) Consider to initiate tomorrow the elemental formula of Vital AF 1.2 Eddie @ 75 ml/hr goal rate as tolerated, if pt still having diarrhea. 3.) If Albumin continues trending down, consider Prostat 1 pkt BID. 4.) Consider daily Asc acid 500 mgs BID. 5.) Refer pt to CDE/RD for further nutrition education and weight monitoring upon discharge. 6.) Continue current plan of care.
[2018-12-03 15:45] VITALS: BP 141/62
--- NOTE | 2018-12-03 17:00 | NUR ---
Patient resting at this time. No S/S of pain/SOB or distress. Will continue to monitor.
[2018-12-03] MEDS: SODIUM CHL 0.9% IV SCH (17:01)
[2018-12-03] MEDS: AMIKACIN IV SCH (17:01)
--- NOTE | 2018-12-03 18:30 | NUR ---
End of shift Note: Patient A&Ox4. Patient has a Trach collar size 8 Shiley, on 30% FIO2 at 9L, saturation at 96%. Patient on the monitor. PICC line left upper arm triple lumen saline locked, patent, clean, dry, and intact. PEG tube site clean, dry, and intact. PEG tube running Glucerna at 60ml/hr. No residual aspirated. No S/S of distress/SOB or pain. Bed locked and in the lowest position, side rails up x2, call light with in reach. Report to be given to manufacturing shift supervisor RN. Will continue to monitor.
--- NOTE | 2018-12-03 19:35 | NUR ---
OPEN SHIFT NOTE PATIENT AWAKE IN BED WATCHING TV, WITH NO S/S OF DISTRESS. WHEN ASKED IF PAIN IS PRESENT HE REPORTS MILD CRAMPING DISCOMFORT TO ABD BUT NOT REQUESTING PAIN MEDICATION. AWAITING NEW GTUBE FEEDINGS , PER DIETARY AND DAY SHIFT RN VITAL AF FEEDINGS NOT AVAILABLE AT THIS TIME. PEG TUBE RESIDUALS CHECKED NOTED TO BE APPROX 5CC, FEEDINGS STOPPED AT THIS TIME TO GIVE PATIENT BREAK. PATIENT REQUESTING DEEP TRACHEAL SUCTION. MODERATE AMOUNTS OF THICK CREAMY/GREEN SECRETIONS NOTED, PATIENT TOLERATED WELL. COMPLETE PHYSICAL ASSESSMENT DONE: SEE INTERVENTIONS. CALL LIGHT IN PATIENT'S HAND, INSTRUCTED TO CALL PRN AND WILL CONTINUE TO MONITOR CLOSELY.
[2018-12-03 20:14] VITALS: BP 128/62
[2018-12-03 21:07] VITALS: BP 128/62
[2018-12-03] MEDS: DULoxetine HCL 30 MG CAP PO SCH (21:32)
[2018-12-03] MEDS: TEMAZEPAM 15 MG CAP PO PRN (21:39)
[2018-12-04] VITALS (7 sets, daily range): BP systolic 119–131; BP diastolic 56–72
[2018-12-04] MEDS: InsuLIN REG 1unit/0.01ml Soln (100units/ml) SC SCH ×4 (00:08→18:30)
[2018-12-04] MEDS: MORPHINE SULF INJ 2 MG/ML SYRINGE 1ML IV PRN ×3 (03:38→22:01)
--- NOTE | 2018-12-04 04:28 | NUR ---
AM CARE/LINEN CHANGE/DRESSING CHANGES PATIENT HAD EPISODE OF STOOL INCONTINENCE.COMPLETE BED BATH PROVIDED USING WARM WASH CLOTHS AND CHG WIPES. PARTIAL LINEN CHANGE DONE AND NEW GOWN PLACED ON PATIENT.DRESSINGS CHANGED TO COCCYX AND RIGHT POSTERIOR HIP AREA PER WOUND CARE NOTES.PATIENT TOLERATED WELL, DEEP TRACHEAL SUCTIONING DONE WITH MODERATE AMOUNT OF THICK WHITE/CREAMY SECRETIONS NOTED. PATIENT REPOSITIONED IN BED FOR COMFORT, CALL LIGHT WITHIN EASY REACH.
[2018-12-04] MEDS: ALBUTEROL SULF 2.5 MG/0.5ML(0.5%) NEB SOLN NEB SCH ×5 (06:06→22:25)
[2018-12-04] MEDS: TOBRAMYCIN 300 MG/5 ML NEB SOLN NEB SCH ×2 (06:06→18:17)
[2018-12-04] MEDS: IPRATROPIUM BROM 0.5 MG/2.5ML INH SOL NEB SCH ×5 (06:06→22:25)
[2018-12-04] MEDS: CEFEPIME 2 GM in SODIUM CHL 0.9% 50 ML IV SCH ×3 (06:16→21:56)
[2018-12-04] MEDS: LEVOTHYROXINE SODIUM 25 MCG TAB PO SCH (06:17)
[2018-12-04] MEDS: GABAPENTIN 300 MG CAP PO SCH ×3 (06:17→22:00)
[2018-12-04] MEDS: ACCU-CHEK COMFORT CURVE STRIP VI SCH ×4 (06:17→23:44)
[2018-12-04] MEDS: NYSTATIN (MOUTH-THROAT) 500,000 UNITS/5 ML SUSP MT SCH ×4 (06:17→21:57)
[2018-12-04 06:18] LABS: Hematocrit 29.4 % (41.0-53.0); Hemoglobin 9.7 g/dL (13.5-17.5); Mean Corpuscular Hemoglobin 29.2 pg (28.0-32.0); Mean Corpuscular Hgb Conc. 33.2 g/dL (32.0-36.0); Mean Corpuscular Volume 87.9 fL (80.0-100.0); Platelet Count (auto) 408 10^3/uL (140-450); Red Blood Cells 3.34 10^6/uL (4.5-5.90); Red Cell Distribution Width 16.9 % (11.8-14.3); White Blood Cell 16.2 10^3/uL (4.4-10.8)
[2018-12-04] MEDS: INSULIN LANTUS (GLARGINE) 1 /0.01ml (100units/ml) SC SCH ×2 (06:25→22:00)
[2018-12-04 06:34] LABS: Albumin 2.8 g/dL (3.4-5.0); Calcium 9.2 mg/dL (8.5-10.1); Potassium 3.8 mmol/L (3.5-5.1)
[2018-12-04 06:42] LABS: Basophils % (manual) 0 (0.0-2.0); Blast Cells 0; Metamyelocytes % 0; Myelocytes % 0; Promyelocytes % 0; Reactive Lymphocytes 0
[2018-12-04 06:45] LABS: BUN/Creatinine Ratio 54.8; Bilirubin, Total 0.2 mg/dL (0.2-1.0); Total Protein 6.8 g/dL (6.4-8.2)
--- NOTE | 2018-12-04 08:00 | NUR ---
Opening Shift Note Assumed care of patient, awake and alert. Patient A&Ox4. Patient has a Trach collar size 8 Shiley, on 30% FIO2 at 8L, saturation at 99%. Patient on the monitor. PICC line left upper arm triple lumen saline locked, patent, clean, dry, and intact. PEG tube site clean, dry, and intact. PEG tube running Glucerna at 60ml/hr. No residual aspirated. No S/S of distress/SOB or pain. Instructed on POC and to call for assist. Bed locked and in the lowest position, side rails up x2, call light with in reach. Will continue to monitor.
[2018-12-04 08:33] LABS: Band Neutrophils % (manual) 5; Eosinophils % (manual) 4 (0-7); Lymphocytes % (manual) 5 (10.0-50.0); Monocytes % (manual) 10 (0-12)
[2018-12-04] MEDS: FAMOTIDINE (10MG/ML) 2ML VL IV SCH ×2 (09:57→21:57)
[2018-12-04] MEDS: APIXABAN 5 MG TAB PO SCH ×2 (09:57→21:59)
[2018-12-04] MEDS: HYDROcodone-ACET 5/325MG TAB PO PRN ×2 (09:57→19:50)
[2018-12-04] MEDS: FLORASTOR (S. BOULARDII) 250 MG CAP PO SCH (09:57)
[2018-12-04] MEDS: DULoxetine HCL 30 MG CAP PO SCH ×2 (09:58→21:58)
[2018-12-04] MEDS: METOPROLOL TARTRATE 25 MG TAB PO SCH ×2 (09:58→21:59)
[2018-12-04] MEDS: MULTIPLE VITAMINS W/ MINERALS TAB PO SCH (09:58)
--- NOTE | 2018-12-04 10:00 | NUR ---
Medication dosages, usages, and side effects explained to patient. Patient verbalized understanding. Will continue to monitor.
--- NOTE | 2018-12-04 11:45 | NUR ---
Dr. Duarte at bedside.
[2018-12-04] MEDS ORDERED: CATHFLO ACTIVASE (ALTEPLASE) 2 MG VIAL IV ONE (12:15)
--- NOTE | 2018-12-04 13:30 | NUR ---
Patient resting at this time. No S/S of pain/SOB or distress. Will continue to monitor.
--- NOTE | 2018-12-04 14:15 | NUR ---
WOUND CARE NOTE: Weekly reevaluation by wound care team. Patient has been on skin integrity rounding due to multiple wounds/pressure injuries noted on admission. Patient seen in [facility] Rm 262. Patient is alert and denies pain. Weekly photographs taken. Wounds to right ischium and left lower back are healed, pink scars. See assessment for measurements of sacrum, left ischium and right heel wounds. RECOMMENDATIONS: Nursing to continue previous wound/skin care orders as directed; wound care team to continue to follow. Addendum: 12/04/18 at 1605 by IRVING KURTZ RN Amended: Links added.
--- NOTE | 2018-12-04 15:45 | NUR ---
PT assisted patient to bedside chair. Patient tolerating well. Will continue to monitor.
--- NOTE | 2018-12-04 16:30 | NUR ---
PT assisted patient back into bed. Patient resting at this time. Will continue to monitor.
--- NOTE | 2018-12-04 18:30 | NUR ---
End of shift Note: Patient A&Ox4. Patient has a Trach collar size 8 Shiley, on 30% FIO2 at 8L, saturation at 97%. Patient on the monitor. PICC line left upper arm triple lumen saline locked, patent, clean, dry, and intact. PEG tube site clean, dry, and intact. PEG tube running Glucerna at 60ml/hr. No residual aspirated. No S/S of distress/SOB or pain. Bed locked and in the lowest position, side rails up x2, call light with in reach. Report to be given to it quality analyst RN. Will continue to monitor.
[2018-12-04] MEDS: SUCRALFATE 1 GM/10 ML ORAL SUSP GT SCH ×2 (19:40→21:56)
[2018-12-04] MEDS: TEMAZEPAM 15 MG CAP PO PRN (22:00)
[2018-12-05] MEDS: InsuLIN REG 1unit/0.01ml Soln (100units/ml) SC SCH ×4 (00:01→18:22)
--- NOTE | 2018-12-05 04:03 | NUR ---
AM CARE/DRESSING CHANGES PATIENT HAD EPISODE OF URINE AND BOWEL INCONTINENCE WHILE SLEEPING. COMPLETE BED BATH PROVIDED USING CHG WIPES AND WARM WASH CLOTHS.DRESSING CHANGED TO RIGHT POSTERIOR HIP PRESSURE ULCER UNSTAGEABLE DUE TO [place] AND COCCYX PRESSURE ULCER PER WOUND CARE ORDERS.PARTIAL LINEN CHANGE DONE, NEW GOWN PLACED ON PATIENT AND PATIENT REPOSITIONED IN BED FOR COMFORT. CALL LIGHT WITHIN EASY REACH OF PATIENT.
[2018-12-05 04:04] VITALS: BP 119/61
[2018-12-05] MEDS: CEFEPIME 2 GM in SODIUM CHL 0.9% 50 ML IV SCH ×3 (05:50→22:05)
[2018-12-05] MEDS: SUCRALFATE 1 GM/10 ML ORAL SUSP GT SCH ×5 (05:50→21:22)
[2018-12-05] MEDS: GABAPENTIN 300 MG CAP PO SCH ×3 (05:50→21:23)
[2018-12-05] MEDS: NYSTATIN (MOUTH-THROAT) 500,000 UNITS/5 ML SUSP MT SCH ×4 (05:59→21:22)
[2018-12-05] MEDS: ACCU-CHEK COMFORT CURVE STRIP VI SCH ×3 (06:01→18:21)
[2018-12-05] MEDS: HYDROcodone-ACET 5/325MG TAB PO PRN ×3 (06:04→18:21)
[2018-12-05] MEDS: INSULIN LANTUS (GLARGINE) 1 /0.01ml (100units/ml) SC SCH ×2 (06:27→21:26)
[2018-12-05] MEDS: LEVOTHYROXINE SODIUM 25 MCG TAB PO SCH (06:27)
[2018-12-05] MEDS: TOBRAMYCIN 300 MG/5 ML NEB SOLN NEB SCH ×2 (06:28→21:46)
[2018-12-05] MEDS: ALBUTEROL SULF 2.5 MG/0.5ML(0.5%) NEB SOLN NEB SCH ×5 (06:28→21:46)
[2018-12-05] MEDS: IPRATROPIUM BROM 0.5 MG/2.5ML INH SOL NEB SCH ×5 (06:28→21:46)
--- NOTE | 2018-12-05 07:28 | NUR ---
END OF SHIFT PATIENT WITH NO S/S OF DISTRESS OR SOB POX 93%, HR 98. REMAINED STABLE THROUGHOUT THE NIGHT, MEDICATED FOR PAIN THIS AM. CARE ENDORSED TO DAY SHIFT STEFANIE DENISE.
--- NOTE | 2018-12-05 08:00 | NUR ---
Opening Shift Note Assumed care of patient, awake and alert. No S/S of distress/SOB or pain. Patient oxygen saturation 98%, on 8 LPM oxygen, 30% FIO2 via trache collar. Vital AF running at 60mls/hr via PEG, patient tolerating well, no residuals noted. Bed locked on low position, side rails up x2, bed alarms on at all times, call mcginnis within reach, instructed on POC and to call for assist PRN, will continue to monitor for changes Q1hr and PRN. Patient able to get out of bed and sat on chair with PT yesterday per report from Ajay RN.
[2018-12-05] MEDS: FAMOTIDINE (10MG/ML) 2ML VL IV SCH ×2 (09:53→21:22)
[2018-12-05] MEDS: APIXABAN 5 MG TAB PO SCH ×2 (09:55→21:23)
[2018-12-05] MEDS: MULTIPLE VITAMINS W/ MINERALS TAB PO SCH (09:55)
[2018-12-05] MEDS: METOPROLOL TARTRATE 25 MG TAB PO SCH ×2 (09:56→21:25)
[2018-12-05] MEDS: DULoxetine HCL 30 MG CAP PO SCH ×2 (09:58→21:23)
[2018-12-05] MEDS: FLORASTOR (S. BOULARDII) 250 MG CAP PO SCH (10:02)
--- NOTE | 2018-12-05 10:55 | NUR ---
Mickey PT at bedside. ROM done with patient, patient tolerated well.
--- NOTE | 2018-12-05 11:50 | NUR ---
Dr Duarte at bedside, updated on patient's status. Patient seen and examined. Will carry out new orders.
[2018-12-05 12:00] VITALS: BP 132/63
--- NOTE | 2018-12-05 12:03 | NUR ---
Nutrition Follow-up Notes Wt.: 51.1 kg as of yesterday Pt's on Trach collar, at bedside, no signs of distress noted earlier, currently NPO, was EN support of Glucerna 1.2 Eddie @ 60 ml/hr via PEG tube providing 1728 kcal, 86 gms protein and 966 ml free water, tolerates feeding no residuals noted by RN this morning. Pt with adequate EN support d/t mod initiation rate delivery of concentrated formula aeb current EN infusion meets 76 to 92% of est caloric needs and 76 to 95% of est protein needs. Pt's started earlier on Vital AF 1.2 Eddie with goal rate of 75 ml/hr providing 2160 kcal, 135 gms protein and 1459 ml free water. Est. Needs IBW (75 kg): 4070-2140 kcal (25-30 kcal/kgIBW), 90-112 gms pro (1.2-1.5 gms/kgIBW d/t severe hypoalbuminemia, CA). Will continue to monitor pertinent labs and reassess nutrient need prn Labs: POC Gluc 205 H; 12/04/18 Gluc 101 H, CO2 35 H, Cr 0.31 L, AST 14 L, ALT 15 L, ALP 175 H, Alb 2.8 L Skin: Atilio scale 15, mod risk, pt's pressure ulcer on right heel and medial sacrum per food stand manager. Pls refer to latest deblocker's notes for further details re: tx plans. Noted pt's on daily MVI supplement GI: Pt had 2x BM this morning per food stand manager. PES: Altered nutrition related lab values r/t current/chronic medical condition aeb mod hypoalb hyperglycemia Increased nutrient needs r/t chronic medical condition aeb pt's CA, severe underwt, EN support via PEG and NPO Will continue to monitor NPO status, EN tolerance, skin status, pertinent labs and weight trend. F/u in 2 to 3 days. Rec.: 1.) Continue EN support of Vital AF 1.2 Eddie @ 75 ml/hr goal rate as tolerated. 2.) If Albumin continues trending down, consider Prostat 1 pkt BID. 3.) Consider daily Asc acid 500 mgs BID prn. 4.) Refer pt to CDE/RD for further nutrition education and weight monitoring upon discharge. 5.) Continue current plan of care.
[2018-12-05] MEDS: MORPHINE SULF INJ 2 MG/ML SYRINGE 1ML IV PRN ×2 (14:29→21:33)
--- NOTE | 2018-12-05 14:58 | NUR ---
Patient tolerating Vital AF at 60ml/hr, no residuals noted, increased feeding to 70ml/hr. Will continue to monitor.
--- NOTE | 2018-12-05 15:33 | NUR ---
re-assessment Per Chelsea Paredes from [facility] patient refused to let her assess him and patient refused [facility]. Addendum: 12/05/18 at 1535 by Gissel MCGUIRE Amended: Links added.
--- NOTE | 2018-12-05 15:56 | NUR ---
Patient out of bed to bedside chair with Mickey PT. Fall precautions in placed. Patient tolerated well.
[2018-12-05 16:00] VITALS: BP 129/75
--- NOTE | 2018-12-05 17:50 | NUR ---
Sputum sample sent to lab
--- NOTE | 2018-12-05 18:55 | NUR ---
RT NOTE PT WAS SEEN BY RT FOR HHN TX. PT TOLERATES WELL VIA TRACH COLLAR. PT STATES NO SUCTION NEEDED AT THIS TIME. BILATERAL BS ARE CTA. HHN GIVEN INLINE WITH 2.5 MG ALBUTEROL AND 0.5 MG ATROVENT WITHOUT ADVERSE REACTION NOTED. 8.0 SHILEY ANIMAL CARE TAKER TRACH SECURED WITH TRACH TIES. DRAIN SPONGE APPEARS CLEAN AND DRY AT THIS TIME. SPARE TRACH AT BEDSIDE NOTED. COOL AEROSOL WATER CHANGED AT THIS TIME WITHOUT INCIDENT. CONT ORDERED Addendum: 12/05/18 at 1859 by Lillian Elam RT Amended: Links added.
--- NOTE | 2018-12-05 19:15 | NUR ---
Report given to Cristiane WATTS
--- NOTE | 2018-12-05 19:48 | NUR ---
Opening Shift Note Assumed care of patient, lying on bed, awake and alert. Breathing on O2 collar mask 35% 8LPM, even and nonlabored, no coughing, No S/S of distress/SOB or pain. PEG in place with continuous TF at 70ml/hr, CDI site. PICC line at left upper arm, CDI site, infusing antibiotic. Due to void. Noted Optifoam at sacrum was peeling off, will changed new Optifoam later. Bed in low position, call light with in reach, all alarms are audible, fall and safety precaution in place. Instructed on POC and to call for assist PRN, will continue to monitor for changes Q1hr and PRN.
[2018-12-05 20:00] VITALS: BP 109/47
--- NOTE | 2018-12-05 21:30 | NUR ---
TF/ residual Administered bedtime medicine, noted residual of 30ml of non-digested milk, will leave TF continuous at 70ml/hr and keep monitoring, will increase to goal rate at 75ml/hr if decrease residual.
--- NOTE | 2018-12-05 21:49 | NUR ---
RT NOTE' PT WAS SEEN BY RT FOR HHN TX. PT TOLERATES WELL VIA TRACH COLLAR. NO ADVERSE REACTION NOTED. CONT ORDERED Addendum: 12/05/18 at 2150 by Lillian Elam RT Amended: Links added.
--- NOTE | 2018-12-05 23:55 | NUR ---
Condition update Pt slept well. Pain at right hip controlled after Morphine administered. V/S and condition stable. Continue care.
[2018-12-06] VITALS (8 sets, daily range): BP systolic 108–151; BP diastolic 46–89
[2018-12-06] MEDS: InsuLIN REG 1unit/0.01ml Soln (100units/ml) SC SCH ×4 (00:09→17:50)
[2018-12-06] MEDS: ACCU-CHEK COMFORT CURVE STRIP VI SCH ×4 (00:09→17:50)
--- NOTE | 2018-12-06 02:05 | NUR ---
Condition update Pt slept well, v/s and condition stable, no s/s of distress. Continue monitoring.
[2018-12-06] MEDS: Vital AF 1.2 Cal 1 liter bottle GT SCH ×2 (02:58→21:57)
--- NOTE | 2018-12-06 04:08 | NUR ---
Condition update Pt woke up and asked for a bedpan. Assisted Pt with a bedpan. Pt turned on the bed well by self. Pt passed clear light vianey urine to the urinal. V/S and condition stable. Continue care.
--- NOTE | 2018-12-06 04:28 | NUR ---
RT NOTE PT WAS SEEN BY RT FOR TRACH CARE. PT IS ON BEDSIDE AND WANTS TO WAIT UNTIL HE IS DONE AND CLEANED UP. STEFANIE PATEL AWARE Addendum: 12/06/18 at 0429 by Lillian Elam RT Amended: Links added.
--- NOTE | 2018-12-06 05:20 | NUR ---
Elimination /Patient bathe/linen change Pt woke up and asked for a bedpan. Assisted Pt with a bedpan. Pt passed a moderate amount of pasty brown stool. Tony rectal cleaned. Optifoam changed, sacrum wound d/s done, z-guard applied to tony area. Patient given complete bath with CHG wipes. Skin integrity assessed for any changes, no new changes. PEG site y and intact, d/s with CHG stick done. Previous chest tube site covered with Optifoam. D/S done at right previous chest tube site, wound healed, WOODWORKER HELPER. Linens changed. Patient repositioned for comfort. Mouth care done. Suction done. Tolerated fairly due to coughing and suctioning.
[2018-12-06] MEDS: GABAPENTIN 300 MG CAP PO SCH ×3 (05:57→21:47)
[2018-12-06] MEDS: NYSTATIN (MOUTH-THROAT) 500,000 UNITS/5 ML SUSP MT SCH ×4 (05:59→21:46)
[2018-12-06] MEDS: HYDROcodone-ACET 5/325MG TAB PO PRN ×3 (05:59→17:49)
[2018-12-06] MEDS: SUCRALFATE 1 GM/10 ML ORAL SUSP GT SCH ×4 (06:00→21:46)
[2018-12-06] MEDS: CEFEPIME 2 GM in SODIUM CHL 0.9% 50 ML IV SCH ×3 (06:00→21:57)
[2018-12-06] MEDS: LEVOTHYROXINE SODIUM 25 MCG TAB PO SCH (06:01)
[2018-12-06] MEDS: IPRATROPIUM BROM 0.5 MG/2.5ML INH SOL NEB SCH ×5 (06:17→22:59)
[2018-12-06] MEDS: ALBUTEROL SULF 2.5 MG/0.5ML(0.5%) NEB SOLN NEB SCH ×5 (06:17→22:59)
[2018-12-06 06:25] LABS: Hematocrit 28.9 % (41.0-53.0); Hemoglobin 9.5 g/dL (13.5-17.5); Mean Corpuscular Hemoglobin 29.5 pg (28.0-32.0); Mean Corpuscular Hgb Conc. 32.9 g/dL (32.0-36.0); Mean Corpuscular Volume 89.6 fL (80.0-100.0); Platelet Count (auto) 323 10^3/uL (140-450); Red Blood Cells 3.23 10^6/uL (4.5-5.90); Red Cell Distribution Width 17.4 % (11.8-14.3); White Blood Cell 15.5 10^3/uL (4.4-10.8)
[2018-12-06] MEDS: INSULIN LANTUS (GLARGINE) 1 /0.01ml (100units/ml) SC SCH ×2 (06:33→22:00)
--- NOTE | 2018-12-06 07:30 | NUR ---
Opening Shift Note Assumed care of patient, laying in bed, eyes closed, arousable to voice, oriented x4. No S/S of distress/SOB or pain. Patient on 8 LPM oxygen, 35% FIO2 via trache collar, saturation 98%. Vital AF running 75ml/hr via PEG, patient tolerating well. See interventions for complete assessment. Bed locked on low position, side rails up x2, bed alarms on at all times, call mcginnis within reach, instructed on POC and to call for assist PRN, will continue to monitor for changes Q1hr and PRN.
[2018-12-06 07:33] LABS: Basophils % (manual) 0 (0.0-2.0); Blast Cells 0; Metamyelocytes % 0; Myelocytes % 0; Promyelocytes % 0; Reactive Lymphocytes 0
[2018-12-06 07:36] LABS: Band Neutrophils % (manual) 3; Eosinophils % (manual) 6 (0-7); Lymphocytes % (manual) 6 (10.0-50.0); Monocytes % (manual) 10 (0-12)
[2018-12-06] MEDS: TOBRAMYCIN 300 MG/5 ML NEB SOLN NEB SCH ×2 (10:20→22:59)
[2018-12-06] MEDS: MULTIPLE VITAMINS W/ MINERALS TAB PO SCH (10:27)
[2018-12-06] MEDS: FLORASTOR (S. BOULARDII) 250 MG CAP PO SCH (10:27)
--- NOTE | 2018-12-06 10:30 | NUR ---
Patient's Susi at bedside, updated on patient's status and POC, verbalized understanding. All questions and concerns addressed.
[2018-12-06] MEDS: FAMOTIDINE (10MG/ML) 2ML VL IV SCH ×2 (10:31→21:47)
[2018-12-06] MEDS: METOPROLOL TARTRATE 25 MG TAB PO SCH ×2 (10:32→21:48)
[2018-12-06] MEDS: APIXABAN 5 MG TAB PO SCH ×2 (10:33→21:46)
[2018-12-06] MEDS: DULoxetine HCL 30 MG CAP PO SCH ×2 (10:33→21:47)
--- NOTE | 2018-12-06 12:00 | NUR ---
Dr Duarte at bedside, updated on patient's status. Patient seen and examined. Will carry out new orders.
--- NOTE | 2018-12-06 13:00 | NUR ---
D/C Planning Per [facility] consult for SNF placement for rehab. Contacted and faxed medical records to [facility] and [facility]. Per Sommer from [facility] they are unable to meet Pt therapeutic needs at this time. Per Osman from [facility] they attempted to evaluate pt at bed side and Pt refused too. Advised Pt and Susi at bedside regarding [facility] and asked them if they would like me to follow up with [facility]. Pt Susi stated they do not want [facility] or [facility] and would like to speak to Dr. Duarte regarding placement. Advised Dr. Duarte Pt Susi would like to speak to him regarding placement. Followed up with and he advised me family is requesting [facility]. Contacted [facility]:) Fax:) faxed medical records. Jer followed up on 12/07/18.
--- NOTE | 2018-12-06 13:00 | NUR ---
RT Givens at bedside, informed Dr Duarte wanted size 6 Fenestrated tache for tomorrow, verbalized understanding.
[2018-12-06] MEDS: MORPHINE SULF INJ 2 MG/ML SYRINGE 1ML IV PRN ×2 (13:14→21:48)
--- NOTE | 2018-12-06 15:00 | NUR ---
Patient out of bed to bedside chair with Mickey PT, fall precautions in placed. Patient tolerated well.
--- NOTE | 2018-12-06 15:45 | NUR ---
Respiratory note: PT WAS SEEN BY RT FOR TRACH CARE. PT WAS SITTING UP IN CHAIR WITH FAMILY AT BEDSIDE. HE ASKED IF IT CAN BE DONE LATER ON THIS EVENING. STEFANIE CAMPOS NOTIFIED.
--- NOTE | 2018-12-06 16:08 | NUR ---
Patient back to bed from bedside chair with Mickey PT, fall precautions in placed. Patient tolerated well.
--- NOTE | 2018-12-06 19:35 | NUR ---
RT NOTE PT WAS SEEN BY RT FOR HHN TX. PT TOLERATES WELL VIA TRACH COLLAR. PT IS TRACHED WITH 8.0 SHILEY AUTOMOBILE TRAVEL CLUB COUNSELOR. PT WAS SUCTIONED FOR SMALL RETURN. PT ON COOL AEROSOL. WATER LEVEL IS ADEQUATE. SPARE TRACH AT BEDSIDE. CONT ORDERED. Addendum: 12/06/18 at 1938 by Lillian Elam RT Amended: Links added.
--- NOTE | 2018-12-06 20:00 | NUR ---
Opening Shift Note Assumed care of patient, awake and alert, lying on bed and smiling upon greeting. Breathing on O2 collar mask 30% 8LPM, even and nonlabored, No S/S of distress/SOB or pain. Occasional coughing. PEG in place, with continuous tube feeding, CDI site. PICC line at left upper arm, CDI site. Due to void. Instructed on POC and to call for assist PRN, will continue to monitor for changes Q1hr and PRN.
--- NOTE | 2018-12-06 21:40 | NUR ---
Elimination/ Condition update Pt v/s and condition stable, c/o pain at right hip, will administer pain med as order. Pt asked for a bedpan. Pt passed a moderate amount of loose-soft brown stool. Perirectal cleaned, pressure ulcer wound at sacrum d/s and Optifoam changed. Pt turn by self well. Pt refused a pillow to support his back. Pt refused the Gil boots. Encouraged Pt to turn by self and avoid lying on the sacrum wound, Pt nodded and complied. Re-positioned for comfort. Mouth care done, Pt held a Yankauer and able to use it by self. Continue care.
--- NOTE | 2018-12-06 22:59 | NUR ---
RT NOTE PT WAS SEEN BY RT FOR HHN TX. PT TOLERATES WELL VIA TRACH COLLAR. NO ADVERSE REACTION NOTED Addendum: 12/06/18 at 2337 by Lillian Elam RT Amended: Links added.
[2018-12-07] VITALS (7 sets, daily range): BP systolic 106–135; BP diastolic 45–80
--- NOTE | 2018-12-07 | NUR ---
Condition update/ NPO Pt resting well, v/s and condition stable. Held TF due to procedure planning in am. Fed with water before disconnected the tubing. Ted valve changed. Pt aware of the procedure in am. Continue care.
[2018-12-07] MEDS: ACCU-CHEK COMFORT CURVE STRIP VI SCH ×5 (00:17→22:57)
--- NOTE | 2018-12-07 01:22 | NUR ---
Nauseated Pt woke up, pressed a call light and asked for an emesis bag. Pt felt nauseated, tried to vomited but nothing out. Pt got better after few minutes. HR increased to low 100's while nauseated and decreased to 90's after better. Pt denied any pain, headache, anxious, stressful. No new medication started on Pt. V/S back to base line after nausea subsided, will continue to monitor and report to day shift and MD. Continue care.
--- NOTE | 2018-12-07 02:00 | NUR ---
Condition update Pt resting on bed with eyes closed, v/s and condition stable. [id number] 30%8LPM, even and nonlabored breathing, )2sat 95%. Continue care.
--- NOTE | 2018-12-07 04:30 | NUR ---
Patient bathe/linen change Patient given complete bath with CHG wipes. Skin integrity assessed for any changes, no new changes. PU at left hip d/s changed done, covered with Optifoam, minimal drainages noted. Complete linens changed. Mouth care done. Pt tolerated well, turned by self well. Patient repositioned for comfort.
[2018-12-07] MEDS: InsuLIN REG 1unit/0.01ml Soln (100units/ml) SC SCH ×5 (06:00→22:57)
[2018-12-07] MEDS: CEFEPIME 2 GM in SODIUM CHL 0.9% 50 ML IV SCH ×3 (06:05→20:24)
[2018-12-07] MEDS: GABAPENTIN 300 MG CAP PO SCH ×3 (06:05→20:25)
[2018-12-07] MEDS: SUCRALFATE 1 GM/10 ML ORAL SUSP GT SCH ×4 (06:05→20:27)
[2018-12-07] MEDS: LEVOTHYROXINE SODIUM 25 MCG TAB PO SCH (06:05)
[2018-12-07] MEDS: NYSTATIN (MOUTH-THROAT) 500,000 UNITS/5 ML SUSP MT SCH ×4 (06:05→20:27)
[2018-12-07] MEDS: IPRATROPIUM BROM 0.5 MG/2.5ML INH SOL NEB SCH ×5 (06:17→21:54)
[2018-12-07] MEDS: ALBUTEROL SULF 2.5 MG/0.5ML(0.5%) NEB SOLN NEB SCH ×5 (06:17→21:54)
[2018-12-07] MEDS: TOBRAMYCIN 300 MG/5 ML NEB SOLN NEB SCH ×2 (06:20→18:00)
[2018-12-07] MEDS: INSULIN LANTUS (GLARGINE) 1 /0.01ml (100units/ml) SC SCH ×2 (06:25→22:00)
--- NOTE | 2018-12-07 07:47 | NUR ---
OPEN Report received from Cristiane WATTS. Care initiated and initial assessment completed. Patient is resting in bed at this time with bed in lowest position and call light within reach.
--- NOTE | 2018-12-07 09:05 | NUR ---
BOWEL MOVEMENT Patient had a bowel movement, soft/runny, brown. New chucks placed. Patient turned, pillow placed to displace pressure.
[2018-12-07] MEDS ORDERED: ONDANSETRON HCL 4 MG/2 ML VIAL IV PRN (10:30)
--- NOTE | 2018-12-07 10:37 | NUR ---
REFUSED PT Patient refused physical therapy due complaints of stomachache and nausea. Will notify MD for new orders.
[2018-12-07] MEDS ORDERED: METOCLOPRAMIDE HCL 5MG/ml INJ 2ml VIAL IV ONE (10:45)
--- NOTE | 2018-12-07 10:45 | NUR ---
BEDSIDE Dr. Duarte bedside. New orders received.
--- NOTE | 2018-12-07 11:30 | NUR ---
BEDSIDE Patients bedside. Updated on plan of care and patients status.
[2018-12-07] MEDS: METOCLOPRAMIDE HCL 5MG/ml INJ 2ml VIAL IV SCH ×3 (12:00→23:46)
--- NOTE | 2018-12-07 12:20 | NUR ---
MINOR LEAGUE BASEBALL PLAYER BEDSIDE SS bedside with the patient and his , Susi, discussing plans for placement.
--- NOTE | 2018-12-07 12:25 | NUR ---
D/C Planning Followed up call to [facility] ph:( [phone]) spoke to ALICIA Foster. Per ALICIA Foster from [facility] they are not contract with Pt insurance. Spoke to Pt Susi at bedside regarding placement. Pt Susi stated she went to do a tour at [facility] yesterday 12/06/18 and she wants her to go to [facility] in [facility]. Pt and Susi verbalize understanding d/c plan. Contacted [facility]:) Fax:( [phone]) faxed medical records spoke to Osman. Per Osman she will follow up once she has a bed for Pt.
--- NOTE | 2018-12-07 12:35 | NUR ---
Transfer: Shadi welch for [facility] is [id number] and for facility is [id number] ruben liu [facility] Addendum: 12/07/18 at 1238 by Irena Becerril RN CM wrong pt
[2018-12-07] MEDS: MORPHINE SULF INJ 2 MG/ML SYRINGE 1ML IV PRN (12:37)
--- NOTE | 2018-12-07 13:00 | NUR ---
PAGED Paged Gerald for trach downsize time. Per Gerald the change has been moved to tomorrow, 12/08, due to patient not feeling well today, 12/07.
--- NOTE | 2018-12-07 13:22 | NUR ---
RT BEDSIDE Informed RT that trach downsize has been moved to tomorrow, 12/08.
--- NOTE | 2018-12-07 14:08 | NUR ---
Nutrition Follow-up Notes Wt.: 51.8 kg as of yesterday Pt's on Trach collar, awake, watching TV, aphasic, no signs of distress noted earlier, currently NPO, with EN support temporarily held this morning for a procedure today. Pt's previously on EN support of Vital AF 1.2 Eddie @ 75 ml/hr providing 2160 kcal, 135 gms protein and 1459 ml free water, tolerates feeding well, no residuals noted by RN as of yesterday. Est. Needs IBW (75 kg): 7983-8599 kcal (25-30 kcal/kgIBW), 90-112 gms pro (1.2-1.5 gms/kgIBW d/t severe hypoalbuminemia, CA). Will continue to monitor pertinent labs and reassess nutrient need prn Labs: No new labs today except for POC Gluc 188 H; 12/04/18 Gluc 200 H, Cl 110 H, CO2 35 H, Cr 0.31 L, AST 14 L, ALT 15 L, ALP 175 H, Alb 2.8 L Skin: Atilio scale 15, mod risk, pt's pressure ulcer on right heel and medial sacrum per title closer. Pls refer to latest pharmacy associate's notes for further details re: tx plans. Noted pt's on daily MVI supplement GI: Pt had 1x BM yesterday per title closer. PES: Altered nutrition related lab values r/t current/chronic medical condition aeb mod hypoalb hyperglycemia Increased nutrient needs r/t chronic medical condition aeb pt's CA, severe underwt, EN support via PEG and NPO Will continue to monitor NPO status, EN tolerance, skin status, pertinent labs and weight trend. F/u in 2 to 3 days. Rec.: 1.) Continue EN support of Vital AF 1.2 Eddie @ 75 ml/hr goal rate as tolerated. 2.) Consider to continue other pertinent labs prn; If Albumin continues trending down, consider Prostat 1 pkt BID. 3.) Consider daily Asc acid 500 mgs BID prn. 4.) Refer pt to CDE/RD for further nutrition education and weight monitoring upon discharge. 5.) Continue current plan of care.
[2018-12-07] MEDS: APIXABAN 5 MG TAB PO SCH ×2 (14:51→20:25)
[2018-12-07] MEDS: FAMOTIDINE (10MG/ML) 2ML VL IV SCH ×2 (14:51→20:27)
[2018-12-07] MEDS: FLORASTOR (S. BOULARDII) 250 MG CAP PO SCH (14:52)
[2018-12-07] MEDS: DULoxetine HCL 30 MG CAP PO SCH ×2 (14:52→20:27)
[2018-12-07] MEDS: MULTIPLE VITAMINS W/ MINERALS TAB PO SCH (14:52)
[2018-12-07] MEDS: METOPROLOL TARTRATE 25 MG TAB PO SCH ×2 (14:52→20:27)
--- NOTE | 2018-12-07 15:17 | NUR ---
SNF VS [facility]. Maira VARGAS for [facility] is questioning need of pt going to [facility] vs SNF. Dr. Duarte's orders read snf and PT notes read SNF. [facility] may deny [facility] and may want us to find snf for pt. I have faxed over 's order as well as PT notes per Maira's request
--- NOTE | 2018-12-07 15:25 | NUR ---
Respiratory note: Trach care done, pt tolerated well. Pt requested suction, suctioned small amount thin white secretions. Pt returned to cool aerosol 8L 30%, no adverse reaction noted.
[2018-12-07] MEDS: LORazepam 2MG/ML-1ML VIAL IV PRN (15:36)
--- NOTE | 2018-12-07 16:00 | NUR ---
FAMILY BEDSIDE Patients son bedside.
--- NOTE | 2018-12-07 17:19 | NUR ---
D/C Planning Followed up call to [facility]:) Fax:) spoke to Maira. Per CM Maira from [facility] been denied and Pt needs to go to a [facility] facility. Advised Pt Susi regarding insurance denying [facility] and provided her with SNF facility contract with insurance. Contacted and faxed medical records to [facility]:( [phone]) Fax:( [phone]) and [facility]:( [phone]) Fax:( [phone]) waiting for respond from facility.
--- NOTE | 2018-12-07 19:14 | NUR ---
CLOSING Report given to Chaim WATTS.
[2018-12-07] MEDS: HYDROcodone-ACET 5/325MG TAB PO PRN (20:32)
[2018-12-07] MEDS: TEMAZEPAM 15 MG CAP PO PRN (20:32)
[2018-12-08 03:54] VITALS: BP 127/58
[2018-12-08] MEDS: NYSTATIN (MOUTH-THROAT) 500,000 UNITS/5 ML SUSP MT SCH ×4 (04:27→21:03)
[2018-12-08] MEDS: ACCU-CHEK COMFORT CURVE STRIP VI SCH ×4 (04:27→23:59)
[2018-12-08] MEDS: GABAPENTIN 300 MG CAP PO SCH ×3 (04:27→21:05)
[2018-12-08] MEDS: SUCRALFATE 1 GM/10 ML ORAL SUSP GT SCH ×4 (04:28→21:02)
[2018-12-08] MEDS: LEVOTHYROXINE SODIUM 25 MCG TAB PO SCH (04:28)
[2018-12-08] MEDS: CEFEPIME 2 GM in SODIUM CHL 0.9% 50 ML IV SCH ×3 (04:51→21:03)
[2018-12-08] MEDS: METOCLOPRAMIDE HCL 5MG/ml INJ 2ml VIAL IV SCH ×3 (04:52→17:56)
[2018-12-08] MEDS ORDERED: SODIUM CHLORIDE 0.9 % NEB SOLN 3ML NEB ONE (05:48)
[2018-12-08] MEDS: InsuLIN REG 1unit/0.01ml Soln (100units/ml) SC SCH ×3 (05:49→17:57)
[2018-12-08] MEDS: INSULIN LANTUS (GLARGINE) 1 /0.01ml (100units/ml) SC SCH ×2 (05:50→21:07)
[2018-12-08 06:03] LABS: Hematocrit 28.1 % (41.0-53.0); Hemoglobin 9.3 g/dL (13.5-17.5); Mean Corpuscular Hgb Conc. 33.2 g/dL (32.0-36.0); Mean Corpuscular Volume 90.3 fL (80.0-100.0); Platelet Count (auto) 274 10^3/uL (140-450); Red Blood Cells 3.11 10^6/uL (4.5-5.90); Red Cell Distribution Width 17.1 % (11.8-14.3); White Blood Cell 12.1 10^3/uL (4.4-10.8)
[2018-12-08 06:08] LABS: Band Neutrophils % (manual) 0; Basophils % (manual) 0 (0.0-2.0); Blast Cells 0; Metamyelocytes % 0; Myelocytes % 0; Promyelocytes % 0; Reactive Lymphocytes 0
[2018-12-08 06:25] LABS: BUN/Creatinine Ratio 65.6; Potassium 3.9 mmol/L (3.5-5.1)
[2018-12-08 06:34] LABS: Eosinophils % (manual) 4 (0-7); Lymphocytes % (manual) 11 (10.0-50.0); Monocytes % (manual) 14 (0-12)
[2018-12-08 08:00] VITALS: BP 150/60
--- NOTE | 2018-12-08 08:00 | NUR ---
Opening Shift Note Assumed care of patient, awake and alert. No S/S of distress/SOB or pain. Patient oxygen saturation 92%, on 8LPM oxygen 30% FIO2, via trache collar. Tube feeding off since 12 midnight per Chaim RN, plan to change trache to size 6 today. Patient no urine output for the past 12 hours per Chaim RN, no bladder distention noted. See interventions for complete assessment. Bed locked on low position, side rails up x2, bed alarms on at all times, call mcginnis within reach, instructed on POC and to call for assist PRN, will continue to monitor for changes Q1hr and PRN.
--- NOTE | 2018-12-08 08:00 | NUR ---
Deep tracheal suctioning done with moderate amount of creamy secretions. Patient tolerated well.
--- NOTE | 2018-12-08 08:00 | NUR ---
Patient had moderate amount of soft stool. Patient given perineal care. Skin integrity assessed for any changes. Linens changed, sacral optifoam dressing changed. Patient repositioned for comfort.
--- NOTE | 2018-12-08 08:30 | NUR ---
Patient voided 200ml of dark vianey urine.
[2018-12-08 08:42] VITALS: BP 130/65
--- NOTE | 2018-12-08 09:10 | NUR ---
Paged Dr Baptiste and called back, clarified if we're still doing the trache change today since Dr Duarte is not here today, plan to re-start tube feeding if trache change will not be done. states "I don't do trache change, you need to ask pulmonary/respiratory. If they say they're not going to do it, you can go ahead and re-start the feeding." Instructions read back and verified. Paged Marysol DSOUZA, awaiting call back.
--- NOTE | 2018-12-08 09:30 | NUR ---
Spoke to Marysol over the phone, clarified if we're still doing trache change today. Marysol states "We don't do trache change, does it."
[2018-12-08] MEDS: FAMOTIDINE (10MG/ML) 2ML VL IV SCH ×2 (10:01→21:03)
[2018-12-08] MEDS: METOPROLOL TARTRATE 25 MG TAB PO SCH ×2 (10:02→21:05)
[2018-12-08] MEDS: FLORASTOR (S. BOULARDII) 250 MG CAP PO SCH (10:02)
[2018-12-08] MEDS: MULTIPLE VITAMINS W/ MINERALS TAB PO SCH (10:02)
[2018-12-08] MEDS: DULoxetine HCL 30 MG CAP PO SCH ×2 (10:02→21:03)
[2018-12-08] MEDS: APIXABAN 5 MG TAB PO SCH ×2 (10:02→21:04)
[2018-12-08] MEDS: HYDROcodone-ACET 5/325MG TAB PO PRN (10:03)
--- NOTE | 2018-12-08 10:10 | NUR ---
Re-started feeding at 70mls/hr, will continue to monitor.
--- NOTE | 2018-12-08 10:15 | NUR ---
Patient's Susi at bedside, updated on patient's status and POC. verbalized understanding. All questions and concerns addressed.
[2018-12-08] MEDS: IPRATROPIUM BROM 0.5 MG/2.5ML INH SOL NEB SCH ×4 (11:04→22:54)
[2018-12-08] MEDS: ALBUTEROL SULF 2.5 MG/0.5ML(0.5%) NEB SOLN NEB SCH ×4 (11:04→22:54)
[2018-12-08] MEDS: TOBRAMYCIN 300 MG/5 ML NEB SOLN NEB SCH ×2 (11:04→19:24)
[2018-12-08 12:00] VITALS: BP 127/59
--- NOTE | 2018-12-08 12:10 | NUR ---
Dr Baptiste at bedside, updated on patient's status. Patient seen and examined. Will carry out new orders.
--- NOTE | 2018-12-08 12:13 | NUR ---
Henry NARVAEZ at bedside, patient refused to get out of bed at this time. Requested for ROM instead.
[2018-12-08] MEDS: MORPHINE SULF INJ 2 MG/ML SYRINGE 1ML IV PRN (12:38)
[2018-12-08 16:00] VITALS: BP 129/63
--- NOTE | 2018-12-08 16:15 | NUR ---
Paged bed worker/ consulting services manager regarding Social Service consult for Discharge Planning to Rehab. consulting services manager Radha called back, informed regarding consult. Received telephone instruction to fax packet (face sheet, H and P, order to [facility]. Telephone number [phone], Fax number [phone]. Facilitated.
--- NOTE | 2018-12-08 17:40 | NUR ---
Attempted to fax packet to [facility] via fax number [phone] but unable to be sent. Will inform corrections caseworker.
[2018-12-08] MEDS: LORazepam 2MG/ML-1ML VIAL IV PRN (17:56)
--- NOTE | 2018-12-08 18:30 | NUR ---
Unable to page area field person case management associate at this time per hydro station operator.
--- NOTE | 2018-12-08 19:26 | NUR ---
Respiratory note: PT RECIEVED BY DAY SHIFT RT ON COOL AEROSOL @ 8LPM, FIO2 30%. PT IS AWAKE AND ALERT AND RESPONSIVE. NO RESP DISTRESS NOTED. PT STATES HE DOESN'T NEED SXN AT THIS TIME. PT HAS A SHILEY 8.0 CUFFED WITH NO AIR IN CUFF. NO SKIN BREAKDOWN AROUND STOMA SITE AT THIS TIME. TOBRAMYCIN 300MG AND ALBUTEROL 2.5MG/ATROVENT 0.5MG ADMINISTERED WITH NO COMPLICATIONS NOTED. PT RESTING COMFORTABLY AT THIS TIME. WILL CONTINUE TO MONITOR PT T/O SHIFT. Addendum: 12/08/18 at 1938 by KELLY PANG RT RT SPARE TRACH AND BVM BY BEDSIDE.
--- NOTE | 2018-12-08 19:45 | NUR ---
SHIFT OPENING NOTE RECEIVED PATIENT AWAKE, ALERT AND ORIENTED X4. NO SOB, DISTRESS OR PAIN NOTED. ON TRACH COLLAR COOL AEROSOL 8L, FIO2 30%. PEG FEEDINGS AT 75 ML/H. NO RESIDUALS NOTED. URINAL AT BEDSIDE. [facility] PIC SL. PHYSICAL ASSESSMENT COMPLETED, SEE INTERVENTIONS. INSTRUCTED ON POC AND TO CALL FOR ASSIST NEEDED. BED IS IN THE LOWEST POSITION WITH SIDE RAILS UP X2, CALL LIGHT IS WITHIN REACH.
[2018-12-08 20:00] VITALS: BP 126/37
--- NOTE | 2018-12-08 21:00 | NUR ---
PICC Line Dressing Changes PICC line dressing change done with a sterile technique. Cleansed with chloraprep scrub/betadine. Stat lock, and bio-patch as available. Occlusive dressing applied.
[2018-12-08] MEDS: TEMAZEPAM 15 MG CAP PO PRN (21:07)
[2018-12-09] VITALS: BP 117/63
--- NOTE | 2018-12-09 00:45 | NUR ---
Deep tracheal suctioning done with moderate amount of creamy secretions. Patient tolerated well.
--- NOTE | 2018-12-09 01:25 | NUR ---
MORNING HYGIENE CARE PATIENT NOTED TO HAVE HAD AN EPISODE OF BOWEL INCONTINENCE. BENEDICT CARE PERFORMED. FULL BED BATH PERFORMED USING CHG WIPES AND WARM SOAPY WASH CLOTHES. GOWN CHANGED. WOUND CARE PERFORMED ON BUTTOCK WOUNDS. NEW OPTIFOAMS PLACED. PARTIAL LINEN CHANGED. PATIENT REPOSITIONED FOR COMFORT. TOLERATED IT WELL.
--- NOTE | 2018-12-09 02:32 | NUR ---
Respiratory note: TRACH CARE PERFORMED WITH NO COMPLICATIONS NOTED. NO SKIN BREAKDOWN NOTED. HEALED SCARS ARE PRESENT UNDER FLANGE. NO REDNESS OR OPEN WOUNDS PRESENT. PT REMAINS ON COOL AEROSOL 8LPM, FIO2 30%. SPO2 98%, HR 94, RR 26, BS COARSE CRACKLES T/O. SXN WITH RETURN OF SCANT THICK MORALEZ SECRETIONS. SKIN ASSESSMENT DONE WITH KAYKAY VELOZ.
[2018-12-09 04:00] VITALS: BP 136/73
[2018-12-09 05:03] LABS: Basophils # (auto) 0.1 uL; Basophils % (auto) 0.7 % (0.0-2.0); Hematocrit 30.9 % (41.0-53.0); Hemoglobin 9.9 g/dL (13.5-17.5); Lymphocytes # (auto) 0.9 uL; Lymphocytes % (auto) 7.4 % (10.0-50.0); Mean Corpuscular Hemoglobin 28.9 pg (28.0-32.0); Mean Corpuscular Hgb Conc. 32.2 g/dL (32.0-36.0); Mean Corpuscular Volume 89.6 fL (80.0-100.0); Monocytes # (auto) 1.3 uL; Monocytes % (auto) 10.7 % (0.0-12.0); Neutrophils # (auto) 9.1 uL; Neutrophils % (auto) 73.2 % (37.0-80.0); Platelet Count (auto) 295 10^3/uL (140-450); Red Blood Cells 3.45 10^6/uL (4.5-5.90); Red Cell Distribution Width 16.7 % (11.8-14.3); White Blood Cell 12.4 10^3/uL (4.4-10.8)
[2018-12-09 05:15] LABS: BUN/Creatinine Ratio 89.7; Calcium 9.2 mg/dL (8.5-10.1); Potassium 3.8 mmol/L (3.5-5.1)
[2018-12-09] MEDS ORDERED: GABAPENTIN 400 MG CAP ONE (05:22)
[2018-12-09] MEDS ORDERED: GABAPENTIN 100 MG CAP ONE (05:22)
[2018-12-09] MEDS: NYSTATIN (MOUTH-THROAT) 500,000 UNITS/5 ML SUSP MT SCH ×4 (05:24→23:06)
[2018-12-09] MEDS: CEFEPIME 2 GM in SODIUM CHL 0.9% 50 ML IV SCH ×3 (05:24→23:04)
[2018-12-09] MEDS: GABAPENTIN 300 MG CAP PO SCH ×3 (05:24→23:06)
[2018-12-09] MEDS: METOCLOPRAMIDE HCL 5MG/ml INJ 2ml VIAL IV SCH ×5 (05:24→23:08)
[2018-12-09] MEDS: ACCU-CHEK COMFORT CURVE STRIP VI SCH ×3 (05:25→18:00)
[2018-12-09] MEDS: InsuLIN REG 1unit/0.01ml Soln (100units/ml) SC SCH ×4 (05:25→18:00)
[2018-12-09] MEDS: INSULIN LANTUS (GLARGINE) 1 /0.01ml (100units/ml) SC SCH ×2 (05:40→22:00)
[2018-12-09] MEDS: SUCRALFATE 1 GM/10 ML ORAL SUSP GT SCH ×4 (05:42→23:04)
[2018-12-09] MEDS: LEVOTHYROXINE SODIUM 25 MCG TAB PO SCH (05:43)
[2018-12-09] MEDS: IPRATROPIUM BROM 0.5 MG/2.5ML INH SOL NEB SCH ×5 (06:36→22:18)
[2018-12-09] MEDS: ALBUTEROL SULF 2.5 MG/0.5ML(0.5%) NEB SOLN NEB SCH ×5 (06:36→22:18)
--- NOTE | 2018-12-09 07:00 | NUR ---
REPORT RECEIVED FROM SALES ASSISTANT NURSE. PATIENT RESTING IN BED AT THIS TIME. RESPIRATIONS EVEN BUT LABORED, SUCTIONED PATIENT AND RESPIRATORY RATE DECREASED FROM 38 TO 32. BED IN LOW POSITION, CALL LIGHT IN REACH. WILL CONTINUE TO MONITOR.
--- NOTE | 2018-12-09 07:26 | NUR ---
END OF SHIFT REPORT GIVEN AND CARE ENDORSED TO DALILA WATTS.
[2018-12-09 08:00] VITALS: BP 153/76
[2018-12-09] MEDS: MORPHINE SULF INJ 2 MG/ML SYRINGE 1ML IV PRN ×3 (08:00→21:09)
--- NOTE | 2018-12-09 08:45 | NUR ---
UPDATED MARIA FERNANDA VIA TELEPHONE ON PATIENT STATUS. ALL QUESTIONS AND CONCERNS ADDRESSED AT THIS TIME. SON AT BEDSIDE.
[2018-12-09] MEDS: FLORASTOR (S. BOULARDII) 250 MG CAP PO SCH (09:58)
[2018-12-09] MEDS: APIXABAN 5 MG TAB PO SCH ×2 (09:59→23:05)
[2018-12-09] MEDS: HYDROcodone-ACET 5/325MG TAB PO PRN ×2 (09:59→17:56)
[2018-12-09] MEDS: MULTIPLE VITAMINS W/ MINERALS TAB PO SCH (09:59)
[2018-12-09] MEDS: METOPROLOL TARTRATE 25 MG TAB PO SCH ×2 (10:00→23:05)
[2018-12-09] MEDS: FAMOTIDINE (10MG/ML) 2ML VL IV SCH ×2 (10:00→23:04)
[2018-12-09] MEDS: DULoxetine HCL 30 MG CAP PO SCH (10:00)
[2018-12-09] MEDS: TOBRAMYCIN 300 MG/5 ML NEB SOLN NEB SCH ×2 (10:04→21:03)
--- NOTE | 2018-12-09 11:30 | NUR ---
UP TO CHAIR WITH PHYSICAL THERAPY. PATIENT TOLERATED WELL. VITAL SIGNS STABLE.
[2018-12-09 12:00] VITALS: BP 151/91
--- NOTE | 2018-12-09 13:25 | NUR ---
PATIENT ASSISTED BACK TO BED BY PHYSICAL THERAPY. PATIENT TOLERATED WELL. VITAL SIGNS STABLE. WILL CONTINUE TO MONITOR.
--- NOTE | 2018-12-09 14:32 | NUR ---
DR THRASHER AT BEDSIDE TO ASSESS PATIENT AND DISCUSS PLAN OF CARE. MD INFORMED PER PHARMACY UNABLE TO CRUSH CYMBALTA, PER MD RESTART ZOLOFT AT PREVIOUS ORDER OR 100MG GT DAILY. ORDERS NOTED IN CHART.
--- NOTE | 2018-12-09 15:50 | NUR ---
Respiratory note: TRACH CARE DONE WITHOUT INCIDENT. FAMILY AT BEDSIDE. SUCTION SMALL CLEAR SECRETIONS.
--- NOTE | 2018-12-09 16:48 | NUR ---
REPORT GIVEN TO SAHRA WATTS TO ASSUME CARE OF PATIENT. PATIENT RESTING IN BED AT THIS TIME, VITAL SIGNS STABLE. NO NOTED DISTRESS NOTED.
--- NOTE | 2018-12-09 18:30 | NUR ---
End of shift Note: Patient A&Ox4. Patient has a Trach collar size 8 Shiley, on 30% FIO2 at 8L, saturation at 98%. Patient on the monitor. PICC line left upper arm triple lumen saline locked, patent, clean, dry, and intact. PEG tube site clean, dry, and intact. PEG tube running Rocio AF 1.2 at 75ml/hr. No residual aspirated. No S/S of distress/SOB or pain. Bed locked and in the lowest position, side rails up x2, call light with in reach. Report to be given to shift manager RN. Will continue to monitor.
[2018-12-09 20:20] VITALS: BP 145/80
--- NOTE | 2018-12-09 21:03 | NUR ---
RT NOTE: 300 MG TOBRAMYCIN NOT AVAILABLE IN [facility] @ THIS TIME. CALLED PHARMACY TO GET REFILL, BUT PHARMACY ALREADY CLOSED. RN AWARE.
[2018-12-09] MEDS: TEMAZEPAM 15 MG CAP PO PRN (23:04)
[2018-12-10] VITALS (8 sets, daily range): BP systolic 140–146; BP diastolic 71–79
--- NOTE | 2018-12-10 | NUR ---
Feeding stopped as ordered. Pt resting well at this time. Will continue to monitor.
[2018-12-10] MEDS: MORPHINE SULF INJ 2 MG/ML SYRINGE 1ML IV PRN ×2 (05:21→09:35)
[2018-12-10 05:41] LABS: Basophils # (auto) 0.1 uL; Basophils % (auto) 0.8 % (0.0-2.0); Eosinophils # (auto) 1.4 uL; Eosinophils % (auto) 10.5 % (0.0-7.0); Hematocrit 30.8 % (41.0-53.0); Lymphocytes # (auto) 1.1 uL; Lymphocytes % (auto) 8.4 % (10.0-50.0); Mean Corpuscular Hgb Conc. 32.3 g/dL (32.0-36.0); Mean Corpuscular Volume 89.8 fL (80.0-100.0); Monocytes # (auto) 1.4 uL; Monocytes % (auto) 10.5 % (0.0-12.0); Neutrophils # (auto) 9.4 uL; Neutrophils % (auto) 69.8 % (37.0-80.0); Platelet Count (auto) 263 10^3/uL (140-450); Red Blood Cells 3.44 10^6/uL (4.5-5.90); Red Cell Distribution Width 16.7 % (11.8-14.3); White Blood Cell 13.5 10^3/uL (4.4-10.8)
[2018-12-10 05:54] LABS: Calcium 9.2 mg/dL (8.5-10.1); Potassium 4.6 mmol/L (3.5-5.1)
[2018-12-10] MEDS: ACCU-CHEK COMFORT CURVE STRIP VI SCH ×4 (06:00→17:36)
[2018-12-10] MEDS: GABAPENTIN 300 MG CAP PO SCH ×3 (06:00→21:40)
[2018-12-10] MEDS: InsuLIN REG 1unit/0.01ml Soln (100units/ml) SC SCH ×5 (06:00→23:54)
[2018-12-10] MEDS: NYSTATIN (MOUTH-THROAT) 500,000 UNITS/5 ML SUSP MT SCH ×4 (06:00→21:38)
[2018-12-10] MEDS: IPRATROPIUM BROM 0.5 MG/2.5ML INH SOL NEB SCH ×5 (06:18→22:05)
[2018-12-10] MEDS: ALBUTEROL SULF 2.5 MG/0.5ML(0.5%) NEB SOLN NEB SCH ×5 (06:18→22:05)
[2018-12-10] MEDS: INSULIN LANTUS (GLARGINE) 1 /0.01ml (100units/ml) SC SCH ×2 (07:00→21:41)
[2018-12-10] MEDS: LEVOTHYROXINE SODIUM 25 MCG TAB PO SCH (07:00)
[2018-12-10] MEDS: SUCRALFATE 1 GM/10 ML ORAL SUSP GT SCH ×4 (07:00→21:39)
[2018-12-10] MEDS: CEFEPIME 2 GM in SODIUM CHL 0.9% 50 ML IV SCH (07:07)
[2018-12-10] MEDS: METOCLOPRAMIDE HCL 5MG/ml INJ 2ml VIAL IV SCH ×4 (07:07→23:54)
--- NOTE | 2018-12-10 07:30 | NUR ---
RECEIVED PATIENT SITTING UP IN BED, O2 BY THE TRACH COLLAR AT 8L, 30% FIO2, A/O TIMES 4, MOUTHS WORDS AND TALKS AROUND HIS TRACH, USES THE URINAL, PEG TUBE TO THE LUQ FLUSHED AND PATENT, PATIENT IS NPO FOR A PROCEDURE TODAY, FIONA PICC LINE WITH 3 LUMENS FLUSHED AND PATENT,
--- NOTE | 2018-12-10 08:27 | NUR ---
Pt remained stable throughout shift. No S/S of distress. Pain managed well under current treatment. Report given, care endorsed.
--- NOTE | 2018-12-10 08:30 | NUR ---
SITTING UP IN BED WITH EYES CLOSED
--- NOTE | 2018-12-10 09:34 | NUR ---
PT REFUSED SPEAKING VALVE. DEEP TRACHEAL SUCTIONED X2 FOR COPIOUS CLEAR RETURN. PT IS ON 28% COOL MIST AEROSOL, SPO2 >95%. NO RESPIRATORY DISTRESS NOTED.
[2018-12-10] MEDS: FAMOTIDINE (10MG/ML) 2ML VL IV SCH ×2 (09:35→21:42)
--- NOTE | 2018-12-10 09:35 | NUR ---
MEDICATED WITH MORPHINE FOR PAIN TO THE RT LEG 10/13
[2018-12-10] MEDS: MULTIPLE VITAMINS W/ MINERALS TAB PO SCH (09:47)
[2018-12-10] MEDS: SERTRALINE HCL 50 MG TAB PO SCH (09:47)
[2018-12-10] MEDS: APIXABAN 5 MG TAB PO SCH ×2 (09:47→21:39)
[2018-12-10] MEDS: FLORASTOR (S. BOULARDII) 250 MG CAP PO SCH (09:47)
[2018-12-10] MEDS: METOPROLOL TARTRATE 25 MG TAB PO SCH ×2 (09:48→21:40)
--- NOTE | 2018-12-10 09:59 | NUR ---
Spoke to pt's about going to SNF and the pt's insurance denying going to acute rehab or l tach. I explained to Shira that pt had to be able to endure at least 2-3 hrs of cont PT and that PT notes stated pt is only walking 4 ft. also stated pt wants to walk but tires easily and he cannot do as much walking as he wants to. I again informed that this is the reason why pt insurance wants him to go to SNF first then acute rehab once pt's strength is greater. stated she would fight pt going to SNF. I informed I would talk with ALICIA Rao for [place] and give Shira's ph # to Maira so Maira can talk with . Maira stated that our MD can write order for L tach and she will present it to her senior medical transcriptionist and if order denied, then can dispute
--- NOTE | 2018-12-10 10:00 | NUR ---
MEDICATIONS DISCUSSED WITH PATIENT REGARDING THE DOSAGE,USAGE, AND SIDE EFFECTS, VERBALIZED THAT HE UNDERSTOOD AND MEDS GIVEN ORDERED
--- NOTE | 2018-12-10 10:10 | NUR ---
IN TO SEE THE PATIENT
[2018-12-10] MEDS ORDERED: AMIKACIN 0 ML IV SCH (10:15)
--- NOTE | 2018-12-10 11:00 | NUR ---
DR CHURCHHA IN TO SEE THE PATIENT AND STATES HE WILL CHANGE THE TRACH TOMORROW, AND WROTE TO TRANSFER TO [facility] WHEN BED IS FOUND
--- NOTE | 2018-12-10 11:10 | NUR ---
Nutrition Follow-up Notes Wt.: 51.3 kg Pt's on Trach collar, awake, watching TV, aphasic, no signs of distress noted earlier, currently NPO, with EN support temporarily held this morning for a procedure today. Pt's previously on EN support of Vital AF 1.2 Eddie @ 75 ml/hr providing 2160 kcal, 135 gms protein and 1459 ml free water, tolerates feeding well, no residuals noted Est. Needs IBW (75 kg): 3681-7158 kcal (25-30 kcal/kgIBW), 90-112 gms pro (1.2-1.5 gms/kgIBW d/t severe hypoalbuminemia, CA). Will continue to monitor pertinent labs and reassess nutrient need prn Labs: GLU 143 H, BUN 21 H Skin: Atilio scale 15, mod risk, pt's pressure ulcer on right heel and medial sacrum per rn documentation. Pls refer to latest cloth boil off machine operator's notes for further details re: tx plans. Noted pt's on daily MVI supplement GI: Pt had 1x BM today per rn documentation. PES: Altered nutrition related lab values r/t current/chronic medical condition aeb mod hypoalb hyperglycemia Increased nutrient needs r/t chronic medical condition aeb pt's CA, severe underwt, EN support via PEG and NPO Will continue to monitor NPO status, EN tolerance, skin status, pertinent labs and weight trend. F/u in 2 to 3 days. Rec.: 1.) Continue EN support of Vital AF 1.2 Eddie @ 75 ml/hr goal rate as tolerated. 2.) Consider to continue other pertinent labs prn; If Albumin continues trending down, consider Prostat 1 pkt BID. 3.) Consider daily Asc acid 500 mgs BID prn. 4.) Refer pt to CDE/RD for further nutrition education and weight monitoring upon discharge. 5.) Continue current plan of care.
[2018-12-10] MEDS: HYDROcodone-ACET 5/325MG TAB PO PRN ×2 (11:54→21:39)
--- NOTE | 2018-12-10 11:54 | NUR ---
NORCO GIVEN FOR PAIN TO THE HIS RT LEG, 10/13
[2018-12-10] MEDS: AMIKACIN 1,000 MG in D5W 5% 100 ML IV SCH (12:08)
--- NOTE | 2018-12-10 13:15 | NUR ---
STILL WITH THE PATIENT, PATIETN SITTING, UP IN THE BED, EYES CLOSED
--- NOTE | 2018-12-10 14:35 | NUR ---
GOTTEN UP INTO THE CHAIR BY PT, PATIENT ASK THAT HIS FEEDING BE STOPPED WHILE HE IS SITTING UP IN THE CHAIR
--- NOTE | 2018-12-10 15:00 | NUR ---
SITTING UP IN THE CHAIR, LOOKING AT THE TV
--- NOTE | 2018-12-10 16:00 | NUR ---
SON IN TO VISIT WITH THE PATIENT
--- NOTE | 2018-12-10 16:10 | NUR ---
GOTTEN BACK INTO THE BED BY PT AND PERFORMED ROM
--- NOTE | 2018-12-10 16:32 | NUR ---
SITTING UP IN THE BED TALKING WITH HIS SON,
--- NOTE | 2018-12-10 16:39 | NUR ---
Joan Polanco: Spoke to Maira at [facility] and she stated her director medical safety approved Joan Polanco. I am awaiting for her to call me back with auth for [facility]
--- NOTE | 2018-12-10 16:46 | NUR ---
Pt has no d/c order as of yet. I was told by that trach tube to be downsized tomorrow. I am still waiting for auth for [facility] ( wants [facility]) and auth for transport from [facility]. Since pt will leave tomorrow, will set up with [place] [facility] tomorrow
--- NOTE | 2018-12-10 17:30 | NUR ---
SITTING UP IN BED WATCHING THE FOOTBALL GAME, STATES HE IS DOING OKAY,
--- NOTE | 2018-12-10 17:47 | NUR ---
spoke to Osman Villa, she will get bed tomorrow for pt. Will have to call Maira in am to get another transport service since pt needs higher level of care from a transport company and not a medical transport company
--- NOTE | 2018-12-10 17:57 | NUR ---
Transfer: Spoke to Luca at [facility] and she stated they can transport pt with a trach and 02 however auth for transport was for ALS and not Specialty care transport. Auth for this upgrade will need to come from Maira VARGAS for [facility] and will have to be obtained in am.
--- NOTE | 2018-12-10 18:00 | NUR ---
BREATHING TREATMENT BEING GIVEN
--- NOTE | 2018-12-10 18:06 | NUR ---
I cancelled transport tonight with [facility]
--- NOTE | 2018-12-10 18:30 | NUR ---
WATCHING THE FOOT BALL GAME ON TV, A/O TIMES 4, PICC LINE TO FIONA WITH 3 LUMENS FLUSHED AND PATENT, USES THE URINAL, TRACH TO THE THROAT WITH O2 BY THE TRACH COLLAR, AT 8L, PEG TUBE TO THE FIONA WITH LAURA AF INFUSING BY THE FEEDING PUMP, NO COMPLAINTS OF PAIN, WILL CONTINUE TO MONITOR AND GIVE REPORT TO THE NEXT SHIFT
--- NOTE | 2018-12-10 19:17 | NUR ---
OPENING SHIFT RECEIVED REPORT FROM DAY SHIFT RN. ASSUMED CARE OF PATIENT. PATIENT IN BED WATCHING TV WITH NO SIGNS OR SYMPTOMS OF SOB, PAIN OR DISTRESS. CURRENTLY ON 8L 30% FIO2 02 VIA TRACH, 02 SAT - 99%. LEFT UPPER ARM PICC X3 - CLEAN/DRY/INTACT. PEG TUBE - MINIMAL RESIDUAL, PLACEMENT VERIFIED VIA AUSCULTATION, FEEDING TOLERATED BY PATIENT. UPDATED PATIENT ON PLAN OF CARE. REPOSITIONED FOR COMFORT. BED IN LOWEST POSITION, SIDE RAILS UP X2, CALL LIGHT WITHIN REACH. WILL CONTINUE TO MONITOR.
[2018-12-10] MEDS: Vital AF 1.2 Cal 1 liter bottle GT SCH (23:21)
[2018-12-11] VITALS: BP 132/67
[2018-12-11] MEDS: ACCU-CHEK COMFORT CURVE STRIP VI SCH ×4 (00:01→18:13)
[2018-12-11] MEDS: TEMAZEPAM 15 MG CAP PO PRN (00:02)
[2018-12-11 03:36] VITALS: BP 132/67
--- NOTE | 2018-12-11 03:51 | NUR ---
MORNING CARE PERFORMED MORNING CARE WITH WASH CLOTHS AND CHG WIPES. PARTIAL LINEN CHANGE AND GOWN CHANGED AT THIS TIME. REPOSITIONED FOR COMFORT. SKIN REASSESSED AT THIS TIME. BED IN LOWEST POSITION, SIDE RAILS UP X2, CALL LIGHT WITHIN REACH. WILL CONTINUE TO MONITOR.
[2018-12-11] MEDS: MORPHINE SULF INJ 2 MG/ML SYRINGE 1ML IV PRN ×3 (04:15→16:44)
[2018-12-11 05:27] VITALS: BP 137/75
[2018-12-11] MEDS: InsuLIN REG 1unit/0.01ml Soln (100units/ml) SC SCH ×3 (05:55→18:13)
[2018-12-11 05:58] LABS: Calcium 9.1 mg/dL (8.5-10.1); Potassium 3.6 mmol/L (3.5-5.1)
[2018-12-11] MEDS: NYSTATIN (MOUTH-THROAT) 500,000 UNITS/5 ML SUSP MT SCH ×4 (06:00→16:40)
[2018-12-11 06:01] LABS: BUN/Creatinine Ratio 71.4
[2018-12-11] MEDS: ALBUTEROL SULF 2.5 MG/0.5ML(0.5%) NEB SOLN NEB SCH ×3 (06:04→13:36)
[2018-12-11] MEDS: IPRATROPIUM BROM 0.5 MG/2.5ML INH SOL NEB SCH ×3 (06:04→13:36)
[2018-12-11 06:13] LABS: Basophils # (auto) 0.1 uL; Basophils % (auto) 0.8 % (0.0-2.0); Eosinophils % (auto) 10.2 % (0.0-7.0); Hematocrit 27.7 % (41.0-53.0); Hemoglobin 9.4 g/dL (13.5-17.5); Lymphocytes # (auto) 1.1 uL; Lymphocytes % (auto) 10.9 % (10.0-50.0); Mean Corpuscular Hgb Conc. 33.7 g/dL (32.0-36.0); Monocytes # (auto) 1.1 uL; Monocytes % (auto) 10.7 % (0.0-12.0); Neutrophils # (auto) 6.7 uL; Neutrophils % (auto) 67.4 % (37.0-80.0); Nucleated Red Blood Cells % 0.1 %; Platelet Count (auto) 261 10^3/uL (140-450); Red Blood Cells 3.12 10^6/uL (4.5-5.90); Red Cell Distribution Width 16.8 % (11.8-14.3); White Blood Cell 9.9 10^3/uL (4.4-10.8)
[2018-12-11] MEDS: METOCLOPRAMIDE HCL 5MG/ml INJ 2ml VIAL IV SCH ×3 (06:26→16:43)
[2018-12-11] MEDS: GABAPENTIN 300 MG CAP PO SCH ×2 (06:26→14:21)
[2018-12-11] MEDS: LEVOTHYROXINE SODIUM 25 MCG TAB PO SCH (06:27)
[2018-12-11] MEDS: INSULIN LANTUS (GLARGINE) 1 /0.01ml (100units/ml) SC SCH (06:30)
[2018-12-11] MEDS: SUCRALFATE 1 GM/10 ML ORAL SUSP GT SCH ×3 (06:49→16:41)
--- NOTE | 2018-12-11 07:19 | NUR ---
END OF SHIFT REPORT GIVEN TO DAY SHIFT RN, CARE ENDORSED.
--- NOTE | 2018-12-11 07:30 | NUR ---
RECEIVED PATIENT SITTING UP IN THE BED, A/O TIMES 4, ABLE TO MOUTH WORDS WITH THE TRACH, HAS SIZE 8 SHILEY TO THE THROAT, O2 BY THE TRACH COLLAR AT 8L AND 28%FIO2, USES THE URINAL. PICC LINE TO THE WILLARD 3 LUMEN ALL LUMENS FLUSHED AND PATENT, PEG TUBE THE LUQ WITH VITAL AF INFUSING AT 75ML/HR BY THE FEEDING PUMP, NO COMPLAINTS OF PAIN OR SOB
--- NOTE | 2018-12-11 08:30 | NUR ---
EXPRESS TO HIM THAT I DIDN'T KNOW WHAT TIME HE WILL BE GOING TO [facility] TODAY,WILL LET HIM KNOW WHEN I DO
--- NOTE | 2018-12-11 09:30 | NUR ---
IN TO VISIT
--- NOTE | 2018-12-11 10:06 | NUR ---
Respiratory note: PT WAS TRACHEAL SUCTIONED X 4 PER PT REQUEST FOR A COPIOUS AMOUNT OF WHITES [employer]CRET[employer] POST MED NEB TX.
[2018-12-11] MEDS: SERTRALINE HCL 50 MG TAB PO SCH (10:48)
[2018-12-11] MEDS: FAMOTIDINE (10MG/ML) 2ML VL IV SCH (10:48)
[2018-12-11] MEDS: APIXABAN 5 MG TAB PO SCH (10:48)
[2018-12-11] MEDS: METOPROLOL TARTRATE 25 MG TAB PO SCH (10:49)
[2018-12-11] MEDS: MULTIPLE VITAMINS W/ MINERALS TAB PO SCH (10:49)
[2018-12-11] MEDS: HYDROcodone-ACET 5/325MG TAB PO PRN (10:50)
[2018-12-11] MEDS: FLORASTOR (S. BOULARDII) 250 MG CAP PO SCH (10:50)
--- NOTE | 2018-12-11 10:50 | NUR ---
NORCO GIVEN FOR PAIN TOT HE RT LEG 10/13
--- NOTE | 2018-12-11 10:55 | NUR ---
DISCUSSED MEDICATIONS WITH THE PATIENT AND HIS REGARDING THE DOSAGE USAGE AND THE SIDE EFFECTS VERBALIZED THEY UNDERSTOOD AND MEDS GIVEN ORDERED
[2018-12-11] MEDS: AMIKACIN 1,000 MG in D5W 5% 100 ML IV SCH (11:05)
--- NOTE | 2018-12-11 11:15 | NUR ---
DR CHURCHHA IN TO SEE THE PATIENT AND STATES HE IS NOT GOING TO CHANGE THE TRACH TODAY BUT HE IS GOING TO TRANSFER TO [facility], ORDERS WRITTEN
[2018-12-11 11:32] VITALS: BP 152/79
--- NOTE | 2018-12-11 12:13 | NUR ---
D/C Planning Per consult to transfer to [facility]. Contacted [facility] Ph:( [phone]) Fax:) faxed medical records. Per Osman from [place] Pt has been accepted to room 106a accepting MD Dr. Méndez in [facility] address [address] [facility] [address]. Contacted [facility] Ph:( [phone]) spoke to Telma. Advised Telma from [facility] transportation to arrange transportation at 16:00 via gurney with oxygen and with speciality care transport. Informed RN BRENT. Addendum: 12/11/18 at 1220 by MINNA MCGUIRE Amended: Links added. Addendum: 12/11/18 at 1613 by MINNA MCGUIRE Advised Telma from [facility] transportation to arrange transportation at 16:00 via gurney with oxygen and with speciality care transport (RT).
--- NOTE | 2018-12-11 12:47 | NUR ---
MORPHINE GIVEN FOR PAIN AT 10/13 TO RT LEG
--- NOTE | 2018-12-11 13:30 | NUR ---
LEFT AND WENT HOME
--- NOTE | 2018-12-11 14:00 | NUR ---
PATIENT BEING SUCTIONED A LITTLE MORE TODAY THAN YESTERDAY
--- NOTE | 2018-12-11 15:00 | NUR ---
SON IN TO VISIT WITH THE PATIENT
--- NOTE | 2018-12-11 15:05 | NUR ---
CALLED AND GAVE REPORT TO REZA Bullock RN AT [facility]
[2018-12-11 16:00] VITALS: BP 138/81
--- NOTE | 2018-12-11 16:10 | NUR ---
DISCHARGE PHOTOS TAKEN, INFORMED BY SS THAT THE PATIENT IS NOT GOING TO BE LEAVING UNTIL 1999 AND WILL BE TRANSPORTED BY [facility]
--- NOTE | 2018-12-11 16:15 | NUR ---
D/C Adi Hyman from [facility] advised me [facility] will be transporting Pt to [place] due to [facility] transport RT. Followed up called to [facility] ph:([phone]) spoke to Cait regarding transportation arrangements for Pt. Advised Cait from [facility] transportation to arrange transportation at 18:00 via gurney with oxygen and with speciality care medical assistance respiratory therapist. Advised STEFANIE KENNEDY. Addendum: 12/11/18 at 1635 by MINNA MCGUIRE Amended: Links added.
--- NOTE | 2018-12-11 16:15 | NUR ---
NOTIFIED BY SS THAT THE PATIENT WOULD NOT BE LEAVING UNTIL 1999
--- NOTE | 2018-12-11 16:45 | NUR ---
MORPHINE GIVEN FOR PAIN TO THE RT LEG 11/13
--- NOTE | 2018-12-11 17:30 | NUR ---
SITTING UP IN BED WITH EYES CLOSED, WAITING TO GO TO [place]
--- NOTE | 2018-12-11 18:30 | NUR ---
[facility] HERE TO TAKE THE PATIENT TO [facility]
--- NOTE | 2018-12-11 18:45 | NUR ---
CALLED HIS AND MADE HER AWARE THAT HE WAS LEAVING, ALSO CALLED REZA WATTS AT [facility] AND MADE HERE AWARE THAT HE IS LEAVING AND GAVE THE LAST VITAL SIGNS
--- NOTE | 2018-12-11 19:00 | NUR ---
PATIENT PLACED ON GURNEY AND TAKEN TO [facility] BY LINDSEY
== END 2018-12-11 19:00 | DRG 870 ==
LOC: TELE-CENTR 15:18 → ICU WEST 18:33 → DOU IN ICU 11-29 13:43
PROVIDERS: ADMIT Internal Medicine; ATTEND Internal Medicine
PROC: 5A1955Z Respiratory Ventilation, Greater than 96 Consecutive Hours (ICD-10-PCS; principal; 2018-11-12)
PROC: 5A1935Z Respiratory Ventilation, Less than 24 Consecutive Hours (ICD-10-PCS; 2018-11-12)
PROC: 02HV33Z Insertion of Infusion Device into Superior Vena Cava, Percutaneous Approach (ICD-10-PCS; 2018-11-20)
DX: A41.9 Sepsis, unspecified organism (principal); J15.1 Pneumonia due to Pseudomonas; J15.6 Pneumonia due to other Gram-negative bacteria; J96.00 Acute respiratory failure, unspecified whether with hypoxia or hypercapnia; E43 Unspecified severe protein-calorie malnutrition; C85.90 Non-Hodgkin lymphoma, unspecified, unspecified site; I82.621 Acute embolism and thrombosis of deep veins of right upper extremity; J93.9 Pneumothorax, unspecified; Z68.1 Body mass index [BMI] 19.9 or less, adult; E11.9 Type 2 diabetes mellitus without complications; E03.9 Hypothyroidism, unspecified; B02.9 Zoster without complications; E87.6 Hypokalemia; I10 Essential (primary) hypertension; D50.9 Iron deficiency anemia, unspecified; Z93.0 Tracheostomy status; Z93.1 Gastrostomy status; Z86.718 Personal history of other venous thrombosis and embolism; Z79.01 Long term (current) use of anticoagulants
CPT/HCPCS: 31720; 36415; 36569; 36600; 71045; 71250; 76705; 80048; 80053; 80150; 81001; 82533; 82805; 82962; 83735; 84100; 84443; 85007; 85025; 85027; 85610; 85730; 87040; 87045; 87070; 87077; 87081; 87086; 87186; 87205; 87427; 87493; 87804; 94002; 94003; 94640; 97110; 97116; 97163; 97530; A4605; G0378; J1450; J1815; J1956; J2185; J2405; J2543; J3480; J3490; J7060

== ENCOUNTER 2019-02-07 12:03 | Inpatient (IN) | payer OTHER ==
[~2019-02-07] VITALS: Ht 177.8 cm; Wt 41.7 kg
[~2019-02-07 12:03] MED LIST changes: +APIX5TAB PO; +ATOR40TA52 PO; +GABA300C10 PO; +HYDR-4833 GT; +MIRT30TA PO; +SERT-274 PO
[2019-02-07] MEDS ORDERED: SODIUM CHLORIDE 0.9% 1,000 ML IVB ONE (12:26)
[2019-02-07] MEDS ORDERED: LEVOFLOXACIN 500MG 100 ML IV ONE (12:30)
[2019-02-07 14:15] LABS: Basophils # (auto) 0 uL; Basophils % (auto) 0.4 % (0.0-2.0); Eosinophils # (auto) 0.2 uL; Eosinophils % (auto) 1.8 % (0.0-7.0); Hematocrit 36.8 % (41.0-53.0); Hemoglobin 12.1 g/dL (13.5-17.5); Lymphocytes # (auto) 1.3 uL; Lymphocytes % (auto) 10.6 % (10.0-50.0); Mean Corpuscular Hemoglobin 28.5 pg (28.0-32.0); Mean Corpuscular Hgb Conc. 32.7 g/dL (32.0-36.0); Monocytes # (auto) 0.8 uL; Monocytes % (auto) 6.8 % (0.0-12.0); Neutrophils % (auto) 80.4 % (37.0-80.0); Nucleated Red Blood Cells % 0.1 %; Platelet Count (auto) 406 10^3/uL (140-450); Red Blood Cells 4.23 10^6/uL (4.5-5.90); Red Cell Distribution Width 16.7 % (11.8-14.3); White Blood Cell 12.4 10^3/uL (4.4-10.8)
[2019-02-07] MEDS: SODIUM CHLORIDE 0.9% 1,000 ML IV SCH (14:15)
[2019-02-07] MEDS ORDERED: ONDANSETRON HCL 4 MG/2 ML VIAL IV PRN (14:15)
[2019-02-07] MEDS ORDERED: HYDROcodone-ACET 5/325MG TAB PO PRN (14:15)
[2019-02-07] MEDS ORDERED: MORPHINE SULF INJ 2 MG/ML SYRINGE 1ML IV PRN (14:15)
[2019-02-07] MEDS ORDERED: DEXTROSE (50%) 50ML SYRG IV PRN ×2 (14:15→17:15)
[2019-02-07] MEDS ORDERED: NITROGLYCERIN 0.4 MG SL TAB SL PRN (14:15)
[2019-02-07 14:18] LABS: Alanine Aminotransferase 23 U/L (16-61); Albumin 3.2 g/dL (3.4-5.0); Anion Gap 11 (5-15); Aspartate Aminotransferase 18 U/L (15-37); Blood Urea Nitrogen 23 mg/dL (7-18); Calcium 9.4 mg/dL (8.5-10.1); Carbon Dioxide 24 mmol/L (21-32); Chloride 102 mmol/L (98-107); GFR African American 182 mL/min; GFR Non-African American 150 mL/min; Glucose 131 mg/dL (74-106); Magnesium 2.3 mg/dL (1.6-2.6); Potassium 4.4 mmol/L (3.5-5.1); Sodium 137 mmol/L (136-145)
[2019-02-07 14:23] LABS: Alkaline Phosphatase 91 U/L (45-117); Bilirubin, Total 0.3 mg/dL (0.2-1.0)
[2019-02-07] MEDS: MORPHINE SULFATE 4 MG/ML SYR/VIAL IV PRN ×2 (14:48→19:08)
--- NOTE | 2019-02-07 15:50 | NUR ---
Telemetry admit from [facility] admitted to Telemetry unit after SBAR received. Patient oriented to Sommer sparks RN, unit, room, bed, and unit policies regarding patient care and visiting hours. Patient now on continuous telemetry monitoring, tele box # 39 and telemetry reading on arrival to unit is SINUS RHYTHM IN THE 90'S. Patient weighed by bedscale and encouraged to call if they need something. All questions and concerns addressed, patient verbalized understanding.
[2019-02-07] MEDS ORDERED: ACCU-CHEK COMFORT CURVE STRIP VI SCH (17:00)
[2019-02-07] MEDS ORDERED: InsuLIN REG 1unit/0.01ml Soln (100units/ml) SC SCH (17:00)
[2019-02-07] MEDS: ACCU-CHEK COMFORT CURVE STRIP VI SCH (17:38)
[2019-02-07] MEDS: InsuLIN REG 1unit/0.01ml Soln (100units/ml) SC SCH (17:38)
[2019-02-07] MEDS: Glucerna Carbsteady SHAKE Vanilla 8oz PO SCH (18:00)
--- NOTE | 2019-02-07 19:30 | NUR ---
SPOKE TO DOCTOR JOSSUE, ORDERS RECEIVED, WILL PLACE AND CARRY OUT.
[2019-02-07 21:21] VITALS: BP 104/59
[2019-02-07] MEDS: HYDROcodone-ACET 5/325MG TAB PEG PRN (21:41)
[2019-02-07] MEDS: PIPERACILLIN-TAZOB 3.375GM 100 ML IV SCH (21:53)
[2019-02-07] MEDS: methylPREDNISolone SOD SUCC 125 MG/2 ML VL IV SCH (21:53)
[2019-02-07] MEDS: LORazepam 0.5 MG TAB PEG PRN (21:54)
[2019-02-08] MEDS: SODIUM CHLORIDE 0.9% 1,000 ML IV SCH ×3 (00:15→20:15)
[2019-02-08] MEDS: InsuLIN REG 1unit/0.01ml Soln (100units/ml) SC SCH ×4 (01:21→17:24)
[2019-02-08] MEDS: MORPHINE SULFATE 4 MG/ML SYR/VIAL IV PRN ×4 (04:15→23:14)
[2019-02-08 04:55] VITALS: BP 157/75
[2019-02-08] MEDS: methylPREDNISolone SOD SUCC 125 MG/2 ML VL IV SCH ×3 (05:33→22:07)
[2019-02-08] MEDS: ACCU-CHEK COMFORT CURVE STRIP VI SCH ×4 (05:33→17:24)
[2019-02-08] MEDS: PIPERACILLIN-TAZOB 3.375GM 100 ML IV SCH ×3 (05:33→22:08)
[2019-02-08 06:42] LABS: Basophils # (auto) 0 uL; Basophils % (auto) 0.2 % (0.0-2.0); Eosinophils # (auto) 0 uL; Hematocrit 33.3 % (41.0-53.0); Hemoglobin 11.1 g/dL (13.5-17.5); Lymphocytes # (auto) 0.7 uL; Lymphocytes % (auto) 8.8 % (10.0-50.0); Mean Corpuscular Hemoglobin 28.6 pg (28.0-32.0); Mean Corpuscular Hgb Conc. 33.3 g/dL (32.0-36.0); Mean Corpuscular Volume 85.7 fL (80.0-100.0); Monocytes # (auto) 0.1 uL; Neutrophils # (auto) 6.7 uL; Platelet Count (auto) 353 10^3/uL (140-450); Red Blood Cells 3.89 10^6/uL (4.5-5.90); Red Cell Distribution Width 16.5 % (11.8-14.3); White Blood Cell 7.5 10^3/uL (4.4-10.8)
[2019-02-08 07:06] LABS: Calcium 8.5 mg/dL (8.5-10.1); Potassium 4.2 mmol/L (3.5-5.1)
[2019-02-08 07:08] LABS: BUN/Creatinine Ratio 34.8
[2019-02-08] MEDS: LEVOTHYROXINE SODIUM 25 MCG TAB PO SCH (07:20)
--- NOTE | 2019-02-08 07:23 | NUR ---
CLOSING NOTES ENDORSED CARE TO DAY SHIFT NURSEKM.
[2019-02-08 09:00] VITALS: BP 141/66
[2019-02-08] MEDS: Glucerna Carbsteady SHAKE Vanilla 8oz PO SCH ×3 (09:48→18:19)
[2019-02-08] MEDS: SERTRALINE HCL 50 MG TAB PO SCH (10:15)
--- NOTE | 2019-02-08 10:56 | NUR ---
URINE SPECIMEN COLLECTED, SENT TO LAB.
--- NOTE | 2019-02-08 11:35 | NUR ---
NUTRITION CONSULT/ASSESSMENT NOTES Please refer to link notes of nutrition screen form filed under the intervention section of the plan of care for further details. Est. Needs based on IBW (75 kg): 1850 kcal to 2250 kcal (25-30 kcal/kgIBW), 75 gms to 90 gms pro (1.0-1.2 gms/kgIBW). Will continue to monitor pertinent labs and reassess nutrient need prn Thank you for this consult. Addendum: 02/08/19 at [address] Amended: Links added.
[2019-02-08 11:47] LABS: Urine Bacteria FEW /hpf (None Seen); Urine Blood Negative /uL (Negative); Urine Mucus FEW (None Seen); Urine Specific Gravity 1.013 (1.001-1.035); Urine WBC 1 /hpf (0 - 3)
--- NOTE | 2019-02-08 12:20 | NUR ---
WOUND CARE NOTE: Wound care in to see patient per wound care request regarding skin integrity issue that are noted present on admission. Bedside nurse took photograph of patient's skin issue upon admission for reference. Patient is 58 years old male with admitting diagnosis of Lymphoma. Patient with history of Acute Resp Failure,Non-Hodgkin Lymphoma, DM. Patient is resting in bed in Rm. 217B. He's awake, alert and oriented. Patient's at bedside. Patient is able to assist in turning and repositioning and his Atilio score is 15. Skin/wound assessment done with the assistance of patient's nurse, STEFANIE Urena. Patient has history of multiple pressure injury to sacrum, ischium. He has multiple pink collagen scar tissue from multiple pressure injuries to sacrum and L lower buttock/ischial tuberosity. Sacral scar is pink and dry, however L lower buttock scar is dark red with thin brown scab, no drainage/odor noted. Staff initiated cleaning and application of Z Guard cream to sacral and L Lower buttock scar and covered with Opti foam sacral/gentle dressing . Patient tolerated skin examination well. Repositioned patient for comfort, redistributed pressure points with pillows. Patient and family skin/wound care education provided, verbalized understanding. Patient will benefit with air mattress, no open wound at this time, however patient is thin weigh 45.3kg and has prominent bony prominences. RECOMMENDATION: Nursing to continue with BID/PRN cleaning and application of Z Guard cream to sacral, buttocks per MD order, Dietary consult, frequent turning and repositioning schedule as condition permits, redistribute pressure points with pillows, air mattress (ordered), elevate heels on pillows, continue monitoring by wound care while patient is hospitalized. Addendum: 02/08/19 at 1626 by Jamee Granger RN Amended: Links added.
[2019-02-08 13:00] VITALS: BP 138/60
[2019-02-08] MEDS: HYDROcodone-ACET 5/325MG TAB PEG PRN (13:52)
[2019-02-08 16:40] VITALS: BP 160/81
[2019-02-08] MEDS: LORazepam 0.5 MG TAB PEG PRN (17:21)
--- NOTE | 2019-02-08 19:05 | NUR ---
Opening Shift Note Received report from day shift nurseRomel. Assumed care of patient. Patient is awake, alert, orientated x 4. No S/S of distress/SOB or pain. Peg tube is in place. Speech is very soft and struggled. Bed is in lowest position with side rails up x 2. Bed brakes are locked and call light is with in reach. Instructed on POC and to call for assist PRN, will continue to monitor for changes Q1hr and PRN.
[2019-02-08 22:11] VITALS: BP 147/71
[2019-02-09 05:00] VITALS: BP 138/79
[2019-02-09] MEDS: ACCU-CHEK COMFORT CURVE STRIP VI SCH ×4 (06:00→17:53)
[2019-02-09] MEDS: SODIUM CHLORIDE 0.9% 1,000 ML IV SCH (06:15)
[2019-02-09] MEDS: methylPREDNISolone SOD SUCC 125 MG/2 ML VL IV SCH ×3 (06:52→21:17)
[2019-02-09] MEDS: PIPERACILLIN-TAZOB 3.375GM 100 ML IV SCH (06:53)
[2019-02-09] MEDS: LEVOTHYROXINE SODIUM 25 MCG TAB PO SCH (07:16)
[2019-02-09] MEDS: InsuLIN REG 1unit/0.01ml Soln (100units/ml) SC SCH ×4 (07:17→18:05)
--- NOTE | 2019-02-09 07:25 | NUR ---
CLOSING NOTES ENDORSED CARE TO DAY SHIFT NURSEIRVING.
[2019-02-09 08:07] LABS: Basophils # (auto) 0 uL; Basophils % (auto) 0.1 % (0.0-2.0); Eosinophils # (auto) 0 uL; Hemoglobin 11.2 g/dL (13.5-17.5); Lymphocytes # (auto) 0.8 uL; Lymphocytes % (auto) 6.8 % (10.0-50.0); Mean Corpuscular Hemoglobin 27.9 pg (28.0-32.0); Mean Corpuscular Hgb Conc. 32.8 g/dL (32.0-36.0); Mean Corpuscular Volume 85.1 fL (80.0-100.0); Monocytes # (auto) 0.3 uL; Monocytes % (auto) 2.8 % (0.0-12.0); Neutrophils % (auto) 90.3 % (37.0-80.0); Platelet Count (auto) 368 10^3/uL (140-450); White Blood Cell 11.1 10^3/uL (4.4-10.8)
--- NOTE | 2019-02-09 08:13 | NUR ---
endorse care to jennifer scherer.
--- NOTE | 2019-02-09 08:14 | NUR ---
Assumed care of patient Patient resting in bed with even and unlabored respirations, no distress noted. Instructed patient on POC, fall precautions and to call for assistance as needed. Patient verbalized understanding. Fall precautions in place with bed in lowest locked position, x2 side rails up and call light within reach. Patient on speciality air mattress per MD order. Patient able to turn self independently. Will continue to monitor q1hr & PRN.
--- NOTE | 2019-02-09 08:39 | NUR ---
RE: Ewa Called pharmacy RE: [facility]. Pharmacy does not carry medication. Medication needs to be brought in by the patient/family. Spoke with
[2019-02-09 08:53] LABS: BUN/Creatinine Ratio 35.8; Calcium 8.7 mg/dL (8.5-10.1); Potassium 3.9 mmol/L (3.5-5.1)
[2019-02-09 09:00] VITALS: BP 155/76
[2019-02-09] MEDS: SERTRALINE HCL 50 MG TAB PO SCH (09:45)
[2019-02-09] MEDS: MORPHINE SULFATE 4 MG/ML SYR/VIAL IV PRN ×3 (09:46→20:40)
--- NOTE | 2019-02-09 10:19 | NUR ---
Patient ambulated with physical therapy FWW used as assistive device. Patient tolerated well.
[2019-02-09] MEDS: HYDROcodone-ACET 5/325MG TAB PEG PRN ×3 (11:44→23:55)
[2019-02-09] MEDS: Glucerna Carbsteady SHAKE Vanilla 8oz PO SCH ×3 (11:44→18:00)
[2019-02-09 13:00] VITALS: BP 149/77
[2019-02-09] MEDS ORDERED: DEXTROSE (50%) 50ML SYRG IV PRN (13:00)
[2019-02-09] MEDS ORDERED: SODIUM CHLORIDE 0.9% 1,000 ML IV SCH (13:00)
--- NOTE | 2019-02-09 13:12 | NUR ---
was at bedside - Dr. Ellsworth Order received and read back to verify.
[2019-02-09 16:39] VITALS: BP 154/76
--- NOTE | 2019-02-09 18:15 | NUR ---
Partial bed linen change Patient able to turn self independently in bed. Bed returned to lowest locked position with x2 side rails up and call light within reach. Will continue to monitor q1hr & PRN.
--- NOTE | 2019-02-09 18:45 | NUR ---
Closing note Patient resting in bed with even and unlabored respirations, no distress noted. Fall precautions in place with call light within reach.
--- NOTE | 2019-02-09 19:15 | NUR ---
Opening Shift Note Assumed care of patient, awake and alert. No S/S of distress/SOB. The patient c/o 8/10 right leg pain and requested pain medication. Will treat with PRN pain medication. Instructed on POC and to call for assist PRN, will continue to monitor for changes Q1hr and PRN.
--- NOTE | 2019-02-09 19:27 | NUR ---
Care endorsed to STEFANIE Contreras.
[2019-02-09 22:00] VITALS: BP 155/77
[2019-02-10] MEDS: ACCU-CHEK COMFORT CURVE STRIP VI SCH ×3 (00:09→12:00)
[2019-02-10] MEDS: InsuLIN REG 1unit/0.01ml Soln (100units/ml) SC SCH ×4 (00:09→18:01)
[2019-02-10 05:00] VITALS: BP 138/72
[2019-02-10] MEDS: MORPHINE SULFATE 4 MG/ML SYR/VIAL IV PRN ×4 (05:24→22:47)
--- NOTE | 2019-02-10 05:45 | NUR ---
Patient has been cleaned and his bedding has been changed. Patient tolerated it well.
[2019-02-10] MEDS: methylPREDNISolone SOD SUCC 125 MG/2 ML VL IV SCH ×3 (06:16→23:34)
[2019-02-10] MEDS: LEVOTHYROXINE SODIUM 25 MCG TAB PO SCH (06:17)
[2019-02-10] MEDS: Glucerna Carbsteady SHAKE Vanilla 8oz PO SCH ×2 (08:00→12:00)
[2019-02-10 09:00] VITALS: BP 154/79
[2019-02-10] MEDS: SERTRALINE HCL 50 MG TAB PO SCH (10:39)
[2019-02-10 13:00] VITALS: BP 140/76
--- NOTE | 2019-02-10 13:07 | NUR ---
PT Patient refused to be OOB during PT visit due to football game he is watching. Addendum: 02/10/19 at 1308 by YANIRA VILLARREAL PTT Amended: Links added.
[2019-02-10 17:00] VITALS: BP 124/71
[2019-02-10] MEDS ORDERED: HYDROcodone-ACET 10/325MG TAB PO ONE (17:15)
--- NOTE | 2019-02-10 18:09 | NUR ---
Medicated for pain with norco via peg tube. It has not been controlled well with just iv medication. States he now has more pain in the back of his neck. Pt states he has been moving his position in bed often on his own, says moves during half times on football games.
--- NOTE | 2019-02-10 19:20 | NUR ---
Opening Shift Note Assumed care of patient, awake and alert. No S/S of distress/SOB. The patient c/o front neck pain that radiates to the back of his neck. The patient requested pain medication. Will treat with PRN pain medication. Instructed on POC and to call for assist PRN, will continue to monitor for changes Q1hr and PRN.
[2019-02-10 21:31] VITALS: BP 135/76
[2019-02-10] MEDS: HYDROcodone-ACET 5/325MG TAB PEG PRN (23:28)
[2019-02-11] MEDS: InsuLIN REG 1unit/0.01ml Soln (100units/ml) SC SCH ×4 (01:04→21:43)
[2019-02-11] MEDS: Glucerna Carbsteady SHAKE Vanilla 8oz PO SCH ×4 (01:05→18:15)
[2019-02-11] MEDS: ACCU-CHEK COMFORT CURVE STRIP VI SCH ×3 (01:05→21:43)
[2019-02-11] MEDS: MORPHINE SULFATE 4 MG/ML SYR/VIAL IV PRN ×4 (02:53→21:42)
[2019-02-11 05:30] VITALS: BP 156/86
[2019-02-11] MEDS: HYDROcodone-ACET 5/325MG TAB PEG PRN ×2 (06:15→12:21)
[2019-02-11] MEDS: methylPREDNISolone SOD SUCC 125 MG/2 ML VL IV SCH (06:44)
[2019-02-11] MEDS: LEVOTHYROXINE SODIUM 25 MCG TAB PO SCH (06:46)
--- NOTE | 2019-02-11 07:30 | NUR ---
Opening Shift Note Assumed care of patient, patient awake and alert laying in bed. Patient is on room air with even and unlabored respirations. No S/S of distress/SOB or pain at this time. Bed is in lowest position, wheels are locked, side rails up x2, and call light is within reach. Instructed on POC and to call for assist PRN, will continue to monitor for changes Q1hr and PRN.
[2019-02-11 08:52] VITALS: BP 129/76
[2019-02-11] MEDS: SERTRALINE HCL 50 MG TAB PO SCH (10:03)
[2019-02-11] MEDS ORDERED: DEXTROSE (50%) 50ML SYRG IV PRN ×2 (11:00→17:15)
--- NOTE | 2019-02-11 11:00 | NUR ---
DR. ROTHMAN AT BEDSIDE AT BEDSIDE ASSESSING PATIENT. WILL CONTINUE CURRENT POC. WILL CONTINUE TO MONITOR Q1H AND PRN.
[2019-02-11] MEDS ORDERED: ACCU-CHEK COMFORT CURVE STRIP VI SCH (11:30)
[2019-02-11] MEDS ORDERED: InsuLIN REG 1unit/0.01ml Soln (100units/ml) SC SCH ×2 (11:30→22:00)
[2019-02-11] MEDS: methylPREDNISolone SOD SUCC 40 MG/ML VL IV SCH ×2 (12:17→21:42)
--- NOTE | 2019-02-11 12:30 | NUR ---
PATIENT STATING CURRENT PAIN MANAGEMENT IS NOT WORKING AND WOULD LIKE THE REGIMEN CHANGED. DR. STEPHAN B[place]MINGH[place]. AWAITING RETURN CALL.
--- NOTE | 2019-02-11 12:50 | NUR ---
DR. ROTHMAN RETURN PAGED. SPOKE WITH , INFORMED HIM ON PT STATUS AND PAIN IS NOT BEING CONTROLLED. PER . WILL LOOK INTO MEDICATIONS AND MAKE CHANGES. NO NEW ORDERS RECEIVED AT THIS TIME. WILL CONTINUE TO MONITOR Q1H AND PRN.
[2019-02-11 13:00] VITALS: BP 138/79
--- NOTE | 2019-02-11 13:45 | NUR ---
INTERVENTIONAL ONCOLOGIST FOR RADIATION CONSULT T BEDSIDE. AT BEDSIDE ASSESSING PT. PER PT TO FOLLOW UP IN OFFICE [place] AFTER D/C. PER [facility] TO CALL FOR AN APPOINTMENT DAY OF D/C. CARD IN CHART AND ONE GIVEN TO PATIENT. PATIENT AWARE AND VERBALIZED UNDERSTANDING.
--- NOTE | 2019-02-11 15:08 | NUR ---
Nutrition Follow-up Notes Wt.: ?38.9 kg as of yesterday. Pt's asleep, no signs of distress noted earlier, currently on Cardiac: 2 gms Na, Low Chol, Low Fat diet w/ Glucerna Shakes 1 TID, has adequate PO intake aeb 80% ave. consumed meals (x5) in last 2 days. Noted pt's for active Wound and Radiation therapy. Est. Needs based on IBW (75 kg): 1850 kcal to 2250 kcal (25-30 kcal/kgIBW), 75 gms to 90 gms pro (1.0-1.2 gms/kgIBW). Will continue to monitor pertinent labs and reassess nutrient need prn Labs: POC Gluc 241 H; 02/09/19 Gluc 315 H, BUN 19 H, Cr 0.53 L; Alb 3.2 L Skin: Atilio scale 16, mod risk, pt's left buttock pressure ulcer per ordnance truck installation mechanic. Pls refer to latest samples and repairs preparer's notes for further details re: tx plans. GI: Pt had 1 BM 02/09/19 per ordnance truck installation mechanic. PES: Increased nutrient needs r/t current/chronic medical/nutritional status aeb Non-Hodgkin lymphoma,Hypotension,Generalized weakness, 60% IBW, BMI 14.3 kg/m2, cachectic, hx of wt loss, on EN support via PEG tube,mild hypoalbuminemia. Altered nutrition related lab values r/t current/chronic medical condition aeb hyperglycemia,low Cr and mild hypoalbuminemia Will continue to monitor PO intake, skin status, pertinent labs and weight trend. F/u in 3 to 5 days. Rec.: 1.) Continue close supervision and feeding assistance prn during meals. 2.) Pls enter order for daily MVI with minerals and Asc acid 500 mgs BID, already e-signed approved by . 3.) If Albumin continues trending down, consider Prostat 1 pkt BID.4.) Consider to resume EN support via PEG tube from 6 pm to 6 am with Glucerna 1.2 Eddie @ 50 ml/hr as tolerated to augment nutrition and meet optimum nutritional needs, if medically appropriate. 5.) Refer to CDE/RD for further nutrition educ. and weight monitoring upon discharge. 6.) Continue current plan of care.
[2019-02-11 17:00] VITALS: BP 150/82
--- NOTE | 2019-02-11 17:00 | NUR ---
HIGH BLOOD SUGAR HIGH BLOOD SUGAR OF 445, THEN 501. PATIENT IS ASYMPTOMATIC. PERMASTONE APPLICATOR HOSPITALIST PAGED. AWAITING RETURN CALL.
--- NOTE | 2019-02-11 17:12 | NUR ---
RECEIVED RETURN CALL FROM HOSPITALIST ADAM LARA RETURNED PAGED. NEW ORDERS RECEIVED. ORDERS CARRIED OUT IN [facility]. WILL CONTINUE TO MONITOR Q1H AND PRN.
[2019-02-11 20:15] VITALS: BP 127/70
--- NOTE | 2019-02-11 20:15 | NUR ---
OPENING SHIFT NOTE Assumed care of patient, awake and alert. No S/S of distress/SOB. Patient is on room air. Respirations even and unlabored. No residual obtained from PEG tube. Optifoam over sacrum and Optifoam over right buttock are both clean, dry, and intact. PEG tube dressing is clean, dry, and intact. Patient able to turn from side to side in bed and reposition self. Patient is on specialty mattress. Patient states he walked with physical therapist yesterday with a walker around the unit. Instructed on POC and to call for assist PRN, will continue to monitor for changes Q1hr and PRN.
[2019-02-11 22:00] VITALS: BP 127/70
--- NOTE | 2019-02-12 00:20 | NUR ---
WOUND CARE DONE Wound care performed on sacral and right buttock wound. Wounds cleansed per order, Z guard applied, and new Optifoam placed on both the sacrum and right buttock. Patient tolerated procedure well.
[2019-02-12] MEDS: HYDROcodone-ACET 5/325MG TAB PEG PRN ×2 (01:17→17:09)
[2019-02-12] MEDS: MORPHINE SULFATE 4 MG/ML SYR/VIAL IV PRN ×4 (03:35→20:54)
[2019-02-12 05:00] VITALS: BP 130/79
[2019-02-12] MEDS: ACCU-CHEK COMFORT CURVE STRIP VI SCH ×4 (05:58→20:55)
[2019-02-12] MEDS: InsuLIN REG 1unit/0.01ml Soln (100units/ml) SC SCH ×4 (05:59→20:59)
[2019-02-12] MEDS: LEVOTHYROXINE SODIUM 25 MCG TAB PO SCH (06:04)
--- NOTE | 2019-02-12 07:00 | NUR ---
CLOSING NOTE No S/S of distress/SOB. Patient is on room air. Respirations even and unlabored. Optifoam over sacrum and Optifoam over right buttock are both clean, dry, and intact. PEG tube dressing is clean, dry, and intact. Patient is on specialty mattress.
--- NOTE | 2019-02-12 07:45 | NUR ---
OPENING NOTE Assumed care of patient from NOC RN. Patient awake and alert with no S/S of distress/SOB or pain. PEG tube right upper quadrant, dressing clean/dry and intact. Instructed on POC and to call for assistance PRN, verbalized understanding. Specialty bed in lowest, locked position with side rails up x2. Fall precautions in place and call light within reach. Will continue to monitor for changes Q1hr and PRN.
[2019-02-12 09:00] VITALS: BP 131/76
[2019-02-12] MEDS: methylPREDNISolone SOD SUCC 40 MG/ML VL IV SCH (10:07)
[2019-02-12] MEDS: SERTRALINE HCL 50 MG TAB PO SCH (10:08)
[2019-02-12] MEDS: Glucerna Carbsteady SHAKE Vanilla 8oz PO SCH ×3 (10:09→18:00)
[2019-02-12 12:55] VITALS: BP 135/71
--- NOTE | 2019-02-12 16:16 | NUR ---
assessment Patient is a 58 year old male who is alert and oriented. Prior to admission patient lived home with his Susi. Per Susi patient is total care prior to admission. Patients PCP is Dr Sequeira. Patient has an advanced directive. Patient has a cane, wheelchair and fww for home use. Susi informed me family is willing to help once patient is discharged. Patient will be getting radiation on discharge. Patient will need a resumption of care for home health on discharge. Susi verbalized understanding and agreed to discharge plan home on discharge. Addendum: 02/12/19 at 1619 by Gissel MCGUIRE Amended: Links added.
[2019-02-12 17:00] VITALS: BP 128/73
[2019-02-12 20:20] VITALS: BP 149/75
--- NOTE | 2019-02-12 20:20 | NUR ---
Opening Shift Note Assumed care of patient, awake and alert. No S/S of distress/SOB. Patient is on room air. Respirations even and unlabored. No residual obtained from PEG tube. Optifoam over sacrum and Optifoam over right buttock are both clean, dry, and intact. PEG tube dressing is clean, dry, and intact. Patient able to turn from side to side in bed and reposition self. Patient is on specialty mattress. Patient states he walked with physical therapist yesterday with a walker. Instructed on POC and to call for assist PRN, will continue to monitor for changes Q1hr and PRN.
[2019-02-12 22:00] VITALS: BP 149/75
[2019-02-13] MEDS: MORPHINE SULFATE 4 MG/ML SYR/VIAL IV PRN ×3 (02:18→11:09)
--- NOTE | 2019-02-13 02:18 | NUR ---
WOUND CARE DONE Wound care performed on sacral and right buttock wound. Wounds cleansed per order, Z guard applied, and new Optifoam placed on both the sacrum and right buttock. Patient tolerated procedure well. Optifoam placed on scab located on left buttock for preventative measure.
[2019-02-13 05:00] VITALS: BP 150/85
[2019-02-13] MEDS: LEVOTHYROXINE SODIUM 25 MCG TAB PO SCH (06:41)
[2019-02-13] MEDS: ACCU-CHEK COMFORT CURVE STRIP VI SCH ×4 (06:41→22:11)
[2019-02-13] MEDS: InsuLIN REG 1unit/0.01ml Soln (100units/ml) SC SCH ×4 (06:42→22:00)
--- NOTE | 2019-02-13 07:00 | NUR ---
CLOSING NOTE No S/S of distress/SOB. Patient is on room air. Respirations even and unlabored. Optifoam over sacrum and Optifoam over right buttock are both clean, dry, and intact. Optifoam over left buttock is clean, dry, and intact. PEG tube dressing is clean, dry, and intact. Patient is on specialty mattress.
[2019-02-13] MEDS: Glucerna Carbsteady SHAKE Vanilla 8oz PO SCH ×3 (08:00→17:41)
--- NOTE | 2019-02-13 08:00 | NUR ---
Opening Shift Note Assumed care of patient, awake, alert and oriented X4. No S/S of distress/SOB, complains of right leg and throat pain, 8/10, explained will medicate with prescribed pain medication when due, verbalized understanding. Tele# 39, sinus rhythm @ 75 bpm. IV to left forearm, 20 gauge, patent and saline locked. Right buttock scabbed pressure area with Optifoam in place. Blanchable redness to sacrum with Optifoam in place. Instructed on POC and to call for assist PRN, verbalized understanding. Bed locked, in lowest position, call light within reach, patient remains on a specialty air mattress, will continue to monitor for changes Q1hr and PRN.
[2019-02-13 08:44] VITALS: BP 138/78
[2019-02-13] MEDS: SERTRALINE HCL 50 MG TAB PO SCH (09:50)
[2019-02-13] MEDS ORDERED: HYDROcodone-ACET 10/325MG TAB PO PRN (11:45)
[2019-02-13 12:17] VITALS: BP 116/70
[2019-02-13] MEDS: GABAPENTIN 300 MG CAP PO SCH ×2 (14:29→21:51)
--- NOTE | 2019-02-13 15:09 | NUR ---
PT PATIENT ASKED TO SKIP PT TODAY NOT FEELING WELL. STEFANIE HARRINGTON WAS NOTIFIED. Addendum: 02/13/19 at 1510 by URIEL DUQUE PTT Amended: Links added.
[2019-02-13 16:49] VITALS: BP 103/57
[2019-02-13] MEDS: OXYCODONE W/ ACETAMINOPHEN 5/325MG TABLET PEG PRN (18:09)
--- NOTE | 2019-02-13 20:00 | NUR ---
Opening Shift Note recived report from nightshift niesha lopez. Assumed care of patient, awake and alert. No S/S of distress/SOB or pain. Instructed on POC and to call for assist PRN, will continue to monitor for changes Q1hr and PRN. bed in low position and call light within reach
--- NOTE | 2019-02-13 20:58 | NUR ---
dressing change performed per md orders. linen changed performed patient had a bowel movement
[2019-02-13 22:00] VITALS: BP 111/63
[2019-02-14] MEDS: OXYCODONE W/ ACETAMINOPHEN 5/325MG TABLET PEG PRN ×3 (02:39→19:24)
[2019-02-14 05:00] VITALS: BP 128/74
[2019-02-14] MEDS: InsuLIN REG 1unit/0.01ml Soln (100units/ml) SC SCH ×4 (06:22→22:00)
[2019-02-14] MEDS: ACCU-CHEK COMFORT CURVE STRIP VI SCH ×7 (06:22→22:00)
[2019-02-14] MEDS: LEVOTHYROXINE SODIUM 25 MCG TAB PO SCH (06:34)
[2019-02-14] MEDS: GABAPENTIN 300 MG CAP PO SCH ×3 (06:35→22:00)
[2019-02-14] MEDS: Glucerna Carbsteady SHAKE Vanilla 8oz PO SCH ×3 (07:31→17:36)
--- NOTE | 2019-02-14 07:34 | NUR ---
report given to nayely scherer
--- NOTE | 2019-02-14 08:00 | NUR ---
Opening Shift Note Assumed care of patient, awake, alert and oriented X4. No S/S of distress/SOB, complains of right leg and throat pain, 6/10, explained will medicate with prescribed pain medication when due, verbalized understanding. Tele# 39, sinus tachycardia @ 109 bpm. IV to left forearm, 20 gauge, patent and saline locked. Left lower abdominal PEG tube in place, no residual noted and irrigated with 60 ml water. Left buttock scabbed pressure area with Optifoam in place. Blanchable redness to sacrum and right buttock with Optifoam in place. Instructed on POC and to call for assist PRN, verbalized understanding. Bed locked, in lowest position, call light within reach, patient remains on a specialty air mattress, will continue to monitor for changes Q1hr and PRN.
[2019-02-14 08:30] VITALS: BP 112/69
--- NOTE | 2019-02-14 10:30 | NUR ---
ROUNDS Dr Duarte at bedside for rounds, no new orders received at this time. Patient and at bedside updated on plan of care, verbalized understanding.
[2019-02-14] MEDS ORDERED: DEXTROSE (50%) 50ML SYRG IV PRN (10:45)
[2019-02-14] MEDS: SERTRALINE HCL 50 MG TAB PO SCH (11:45)
[2019-02-14 12:51] VITALS: BP 112/65
[2019-02-14 17:00] VITALS: BP 113/70
--- NOTE | 2019-02-14 19:00 | NUR ---
Opening Shift Note Assumed care of patient, awake and alert. No S/S of distress/SOB or pain. Instructed on POC and to call for assist PRN, will continue to monitor for changes Q1hr and PRN.
--- NOTE | 2019-02-14 19:19 | NUR ---
Care endorsed to STEFANIE Spencer, night nurse.
[2019-02-14 21:39] VITALS: BP 104/66
[2019-02-14] MEDS ORDERED: InsuLIN REG 1unit/0.01ml Soln (100units/ml) SC SCH (22:00)
--- NOTE | 2019-02-14 23:00 | NUR ---
Patient refused IV change. RN noted patient has had his IV in place for more than three days. RN informed patient of IV needing to be changed d/t it being in place for more than three days. Patient refused and stated, "it still works, I don't need to be pocked again right now". RN provided teaching to patient regarding need to change IV every three days. Patient verbalized understanding of teaching provided but still refused his IV to be discontinued at this time.
[2019-02-15] MEDS: OXYCODONE W/ ACETAMINOPHEN 5/325MG TABLET PEG PRN (02:18)
[2019-02-15 04:39] VITALS: BP 107/63
[2019-02-15] MEDS: GABAPENTIN 300 MG CAP PO SCH (06:11)
[2019-02-15] MEDS: ACCU-CHEK COMFORT CURVE STRIP VI SCH ×2 (06:11→06:32)
[2019-02-15] MEDS: LEVOTHYROXINE SODIUM 25 MCG TAB PO SCH (06:32)
[2019-02-15] MEDS: InsuLIN REG 1unit/0.01ml Soln (100units/ml) SC SCH (06:32)
--- NOTE | 2019-02-15 06:35 | NUR ---
IV removed: Patient IV to left FA removed d/t infiltration. IV intact. Patient complaining of no pain or discomfort. Patient refused to have another IV placed at this time. Patient stated, "I don't want another one right now, I might be going home today". RN provided teaching to patient on importance of IV access but patient still refused. RN to continue to monitor and assess patient Q 1 hour and PRN.
--- NOTE | 2019-02-15 07:30 | NUR ---
Opening Shift Note Assumed care of patient, awake and alert. No S/S of distress/SOB or pain. Bed in lowest and locked position with side rails up x2 and call light within reach. Instructed on POC and to call for assist PRN, will continue to monitor for changes Q1hr and PRN.
--- NOTE | 2019-02-15 08:00 | NUR ---
IV EDUCATION PATIENT REFUSING IV. PT EDUCATED ON THE RISKS/BENEFITS OF AN IV AND THE REASONING OF AN IV. THE PATIENT STATED "I DON'T WANT AN IV RIGHT NOW BECAUSE I AM SUPPOSED TO GO HOME TODAY" THE PATIENT ALSO STATED "IF I AM NOT DISCHARGED TODAY, THEN YOU CAN PUT AN IV IN, I JUST WANT TO CHECK WITH THE DOCTOR FIRST". PATIENT VERBALIZED UNDERSTANDING OF RISKS AND BENEFITS. WILL CONTINUE TO EDUCATE PATIENT ON IV.
[2019-02-15 09:00] VITALS: BP 113/66
--- NOTE | 2019-02-15 09:30 | NUR ---
0915 02/15/19 Contacted Maira at [facility] regarding patient needing authorization for outpatient Radiation before they are discharged. Maira is going to find out if patient needs prior authorization, provided her with contact information for Dr. Cisneros's office as well as Dr. Sequeira's office. She will give me a call back. Placed a page out to Dr. Duarte to provide him with Dr. Cisneros's contact information (per Dr. Cisneros's request).
--- NOTE | 2019-02-15 09:35 | NUR ---
SPOKE WITH DR. ROTHMAN SPOKE TO DR. ROTHMAN. ACCORDING TO DR. ROTHMAN, HE RECEIVED A CALL FROM DR. LEAL REGARDING THE PATIENT HAVING AN APPOINTMENT SET UP TODAY AT 1030 AM AT [facility]. ACCORDING TO DR. ROTHMAN, DR. LEAL IS TO CALL THE PATIENTS . Addendum: 02/15/19 at 1040 by PAUL DE LEON RN RN ACCORDING TO DR. ROTHMAN, DUE TO THE PATIENTS APPOINTMENT, THE PATIENT IS TO BE DISCHARGED IMMEDIATELY.
[2019-02-15 09:44] VITALS: BP 113/66
[2019-02-15] MEDS: Glucerna Carbsteady SHAKE Vanilla 8oz PO SCH (09:54)
--- NOTE | 2019-02-15 09:55 | NUR ---
CALLED AND SPOKE TO THE PATIENTS , BRANDI, REGARDING THE PATIENTS RADIATION APPOINTMENT. ACCORDING TO THE PATIENTS , SHE IS AWARE OF THE APPOINTMENT.
[2019-02-15] MEDS: SERTRALINE HCL 50 MG TAB PO SCH (10:00)
--- NOTE | 2019-02-15 10:20 | NUR ---
Discharge instructions given as ordered. Encourage to follow up with PMD as instructed. All questions and concerns addressed. Patient verbalized understanding. Medication reconciliation form completed and copy given to patient. No Home medications held in Pharmacy. Pt refused vaccines. IV removed previously with right RN. Telemetry unit returned to ICU.
--- NOTE | 2019-02-15 10:26 | NUR ---
Patient taken to vehicle via wheelchair with all personal belongings, accompanied by staff and family member. No distress noted at time of departure.
--- NOTE | 2019-02-15 10:29 | NUR ---
MRSA NARES SENT TO LAB.
== END 2019-02-15 10:26 | disposition home health service (06) | DRG 840 ==
LOC: ER 12:03 → TELE 12:04 → TELE-CENTR 15:51
PROVIDERS: ADMIT Internal Medicine; ATTEND Internal Medicine
DX: C85.91 Non-Hodgkin lymphoma, unspecified, lymph nodes of head, face, and neck (principal); J18.9 Pneumonia, unspecified organism; J96.90 Respiratory failure, unspecified, unspecified whether with hypoxia or hypercapnia; J90 Pleural effusion, not elsewhere classified; E44.0 Moderate protein-calorie malnutrition; D80.1 Nonfamilial hypogammaglobulinemia; Z68.1 Body mass index [BMI] 19.9 or less, adult; D50.9 Iron deficiency anemia, unspecified; E03.9 Hypothyroidism, unspecified; I11.9 Hypertensive heart disease without heart failure; I95.9 Hypotension, unspecified; E11.65 Type 2 diabetes mellitus with hyperglycemia; F32.9 Major depressive disorder, single episode, unspecified; M54.2 Cervicalgia; M79.651 Pain in right thigh; T38.0X5A Adverse effect of glucocorticoids and synthetic analogues, initial encounter; Z82.49 Family history of ischemic heart disease and other diseases of the circulatory system; Z93.1 Gastrostomy status; Z86.19 Personal history of other infectious and parasitic diseases; Z92.21 Personal history of antineoplastic chemotherapy; Y92.89 Other specified places as the place of occurrence of the external cause; Z83.3 Family history of diabetes mellitus
CPT/HCPCS: 36415; 71046; 80048; 80053; 81001; 82962; 83605; 83735; 84484; 85025; 87040; 87081; 87086; 87088; 93005; 96365; 96375; 97116; 97163; 97530; G0378; J1815; J1956; J2405; J2543